=== PATIENT | male | born 1950 | race Two or more races ===

== ENCOUNTER 2020-07-07 09:14 | Emergency (ER) | payer MEDICARE, SELFPAY ==
--- NOTE | 2020-07-07 | CT_ITS ---
EXAMINATION: CT HEAD WITHOUT CONTRAST CLINICAL INFORMATION: Headache and neck pain COMPARISON: Previous head CT April 2019 TECHNIQUE: Contiguous axial imaging was performed from the skull base to vertex without intravenous administration of contrast. This CT examination was performed using dose optimization techniques as appropriate, variously including the following: *Automated exposure control *Adjustment of mA and/or kV according to patient size (this includes techniques or standardized protocols for targeted exams where dose is matched to indication/reason for exam; i.e. extremities or head) *Use of iterative reconstruction technique DLP: 703 mGy-cm FINDINGS: There is no evidence of an extra-axial collection. There is no evidence of intra-axial extra-axial hemorrhage. The ventricles and extra-axial CSF spaces are appropriate. There is nonspecific low-attenuation seen in the periventricular white matter similar to previous exam. No mass, mass effect or infarct is seen. There is severe soft tissue opacification of the bilateral maxillary sinuses suggestive of sinusitis. This is is not appreciably changed from April 2019. The remainder of the paranasal sinuses, mastoid air cells and middle ears are clear. Bony structures are unremarkable. IMPRESSION: No acute intracranial pathology findings. Mild nonspecific periventricular white matter disease.. Chronic bilateral maxillary sinus disease.
[2020-07-07 09:34] VITALS: BP 130/60; PULSE 76; RESP 16; TEMP 37.1; O2SAT 99; BMI 26.6
--- NOTE | 2020-07-07 09:57 | PC.NURSE ---
SEEN BY PROVIDER AT THIS TIME.
--- NOTE | 2020-07-07 09:57 | ED.HA ---
HPI - Headache General Chief Complaint: Headache Stated Complaint: HEADACHE Time Seen by Provider: 07/07/20 09:43 Source: patient Mode of arrival: ambulatory History of Present Illness HPI Narrative: 69-year-old male with a past medical history of asthma, hypertension, hyperlipidemia, DM, PUD, psoriatic arthritis, alcohol dependence, White's esophagus c/o posterior headache x3 days with associated neck pain. Admits to similar symptoms in the past in which he was seen in the ED. Reports dizziness /feeling off balance when he looks down and up quickly. Denies visual loss, fever, chills, nausea / vomiting, weakness, CP/SOB, head trauma / falls. Takes baby ASA daily denies other anticoagulation Related Data Previous Rx's Medication Instructions Recorded amoxicillin-pot clavulanate 1 tab PO Q12H 7 Days #14 tab 07/07/20 [Augmentin] [id number]-jtycbbqevctnu-csyw 1 cap PO Q4-6H PRN #14 cap 07/07/20 [Fioricet] meclizine 25 mg PO BID PRN #10 tab 07/07/20 Allergies Allergy/AdvReac Type Severity Reaction Status Date / Time doxycycline Allergy Unknown Unknown Verified 07/07/20 09:52 levofloxacin Allergy Unknown Unknown Verified 07/07/20 09:52 metformin Allergy Unknown diarrhea Verified 02/05/20 00:00 morphine [MORPHINE] Allergy Unknown ITCHING Verified 07/07/20 09:52 tetracycline Allergy Unknown Unknown Verified 07/07/20 09:52 Cefazolin Sodium Allergy Unknown Unknown Uncoded 07/07/20 09:52 Review of Systems Review of Systems: Yes all other systems are reviewed and are negative Constitutional: Constitutional: Reports as per HPI, Denies chills, Denies fever(s), Denies frequent falls and Denies weakness Eyes: Eyes: Reports as per HPI, Denies change in vision and Denies loss of vision ENT: Reports as per HPI and Reports dizziness Cardiovascular: Cardiovascular: Reports as per HPI, Denies chest pain and Denies dyspnea Respiratory: Respiratory: Reports as per HPI, Reports no additional respiratory complaints, Denies cough and Denies dyspnea Gastrointestinal: Gastrointestinal: Reports as per HPI, Denies abdominal pain, Denies diarrhea, Denies nausea and Denies vomiting Musculoskeletal: Musculoskeletal: Denies abnormal gait, Denies numbness and Denies tingling Neurologic: Reports as per HPI, Denies Abnormal speech present, Denies abnormal gait, Reports dizziness, Denies frequent falls, Denies focal weakness, Denies loss of vision, Denies numbness, Denies Sensory deficit (Neuro), Denies tingling and Denies weakness PMFSH Past Medical History Attestation statement: The following information was validated with the patient. Medical History Asthma HTN (hypertension) IDDM (insulin dependent diabetes mellitus) Social History Social History Alcohol intake: current Alcohol intake frequency: 3 or more drinks per day Smoked in Last 30 Days: No Use of substances other than those prescribed or required for medical reasons: No Advance Directives: No Advance Directives Information Provided: Yes Physical Exam Vital Signs and I&O and Narrative: Vital Signs and I&O: Vital Signs Temp 98.8 F 07/07/20 09:34 Pulse 67 07/07/20 11:33 Resp 16 07/07/20 09:34 BP 109/57 L 07/07/20 11:33 Pulse Ox 99 07/07/20 09:34 Intake & Output 07/06/20 07/07/20 07/07/20 18:59 06:59 18:59 Intake Total 1000 / 1000 Balance 1000 / 1000 Weight 77.111 kg Intake: Intake, IV Amoun t 1000 / 1000 0.9 % Sodium C hloride 1,000 ml 1000 / 1000 @ 999 mls/hr I VCONT .Q1H1M [facility] Rx#:[id number] Body Mass Index 26.6 Const: General: cooperative and healthy appearing Orientation/consciousness: patient oriented x3 HENMT: Head: Yes normal to inspection Ears: hearing grossly normal bilaterally Mouth: Normal oral and palatal mucosa present Eyes: General: appearance normal, both eyes and all related structures Periorbital: periorbital findings normal Eyelids: Yes eyelids normal Conjunctivae: conjunctivae normal Pupils: Equal, round and reactive pupils present EOM: EOMs intact bilaterally and No Nystagmus present Direct Ophthalmoscopy: normal light reflex and no photophobia Neck: Other: right-sided trapezius muscle tenderness. No midline spinous tenderness Neck: Yes normal visual inspection, Yes full ROM, Yes no lymphadenopathy, Yes no meningeal signs, Yes trachea midline and Yes supple Chest: Chest palpation & inspection: normal inspection of the chest Resp: Effort & Inspection: normal respiratory effort, able to speak in complete sentences and no cough Auscultation: clear to auscultation bilaterally Cardio: Jugular venous distension: no JVD Rhythm: regular rhythm Heart sounds: S1 normal heart sound present and S2 normal heart sound present GI: Inspection: Yes normal to inspection Palpation (GI): Soft to palpation, nontender and no guarding Neuro: General: patient oriented x3, no meningeal signs and CN's II-XI intact bilaterally Cranial nerves: Yes Equal, round and reactive pupils present and No Nystagmus present Speech: No Abnormal speech present Gait exam (Neuro): Normal gait present Motor exam (neuro): 5/5 motor strength present throughout Sensory Exam: No Sensory deficit (Neuro) Course Course Course Narrative: H&H at baseline, no leukocytosis. Potassium slightly high 5.2> Kayexalate ordered -1209-- head CT without acute intracranial findings --1240-- patient reports symptomatic improvement after. Sed, and Augmentin. Worrisome signs and symptoms and strict return precautions discussed. Patient verbalized understanding and feels safe for discharge Reevaluation(s) Reevaluation #1: on re-evaluation patient reports mild symptomatic improvement stool with residual headache. Reports right-sided ear pain. On exam cerumen noted with a dull TM on right side. No mastoid abnormality. Will treat for acute otitis media Time: 12:12 MDM - Headache MDM Narrative Medical decision making narrative: 69-year-old male with a past medical history of asthma, hypertension, hyperlipidemia, DM, PUD, psoriatic arthritis, alcohol dependence, White's esophagus c/o posterior headache x3 days with associated neck pain. On exam VSS, NAD/ well-appearing. No focal neuro deficits. No meningeal signs. Ambulating with steady gait. Likely migraine headache w/BPPV. Low concern for CVA/TIA, CVT, infectious etiology, meningitis/encephalitis patient requesting head CT, so we will obtain, last head CT in 2019 plan: Labs, head CT, symptomatic therapy/reassess Lab Data Result diagrams: 07/07/20 10:19 07/07/20 10:19 Labs: Lab Results 07/07/20 07/07/20 Range/Units 10:19 10:19 WBC 7.6 (4.8-10.8) X10*3/uL RBC 4.13 L (4.60-5.80) X10*6/uL Hgb 12.6 L (14.0-18.0) g/dl Hct 39.2 L (42-52) % MCV 94.9 (80-98) fL MCH 30.5 (27.0-33.0) pg MCHC 32.1 (31.0-36.0) g/dl RDW 13.9 (11.0-16.0) % Plt Count 219 (160-400) X10*3/uL MPV 9.9 (9.4-12.4) fL Immature Gran % (Auto) 0.5 H (0.0-0.4) % Neut % (Auto) 59.0 (45-73) % Lymph % (Auto) 20.7 (20-40) % Park % (Auto) 7.2 (2-11) % Eos % (Auto) 12.2 H (0-4) % Baso % (Auto) 0.4 (0-2) % Neut # (Auto) 4.5 (2.0-8.3) X10*3/uL Lymph # (Auto) 1.6 (1.2-4.9) X10*3/uL Park # (Auto) 0.6 (0.1-1.2) X10*3/uL Eos # (Auto) 0.9 H (0.0-0.4) X10*3/uL Baso # (Auto) 0.0 (0.0-0.2) X10*3/uL Abs Immat Gran (auto) 0.04 H (0.00-0.03) X10*3/uL Absolute Nucleated RBC 0.000 (0.0-0.012) X10*3/uL Nucleated RBC % (auto) 0.0 (0.0-0.2) /100WBC Sodium 139 (135-145) mmol/L Potassium 5.2 H (3.3-5.1) mmol/l Chloride 109 H (96-108) mmol/L Carbon Dioxide 21 L (22-29) mmol/L Anion Gap 14 (12-20) BUN 26 H (9-16) mg/dL Creatinine 1.20 (0.5-1.4) mg/dL Estim Creat Clear Calc 55.0 Estimated GFR > 60 Random Glucose 226 H (60-115) mg/dL Calcium 8.9 (8.4-10.2) mg/dL Discharge Plan Discharge Clinical Impression: Headache, Otitis media Patient Disposition: Home, Self-Care Instructions: Ear Infection (ED), Acute Headache (ED), Dizziness (ED) Additional Instructions: your blood work and head CT were reassuring today in the ED You have an inner ear infection Augmentin as an antibiotic, take as prescribed Meclizine will help with the dizziness /nausea Fioricet is a headache medication, take as needed ED to have close follow-up with her primary care doctor You should also follow-up with an ENT doctor If your symptoms persist /worsen, you have fever, visual changes, nausea /vomiting, or weakness return to the ED immediately Prescriptions: New amoxicillin-pot clavulanate [Augmentin] 875-125 mg tablet 1 tab PO Q12H 7 Days Qty: 14 RF: 0 ljiufhkdqp-wjxitbdkladci-jgnk [Fioricet] 50-300-40 mg capsule 1 cap PO Q4-6H PRN (Reason: headache) Qty: 14 RF: 0 meclizine 25 mg tablet 25 mg PO BID PRN (Reason: dizziness) Qty: 10 RF: 0 Referrals: Uziel Aggarwal [Physician] - 2 days Sheba Greco MD [Primary Care Provider] - 2 days
[2020-07-07] MEDS: Acetaminophen 325 MG TABLET 650 MG PO (10:21)
[2020-07-07] MEDS: Metoclopramide HCl 10 MG/2 ML VIAL IVPUSH (10:21)
[2020-07-07] MEDS: 0.9 % Sodium Chloride 1,000 ML 999 ML IVCONT (10:21)
[2020-07-07] MEDS: Meclizine HCl 25 MG TABLET PO (10:22)
--- NOTE | 2020-07-07 10:22 | PC.NURSE ---
IV EST 20 G R AC. BLOOD TO LAB. MEDICTED PER ORDERS
[2020-07-07 10:30] LABS: MANUAL DIFF FLAG NO
[2020-07-07 10:37] LABS: Basophils Percent Auto 0.4 % (0-2); Eosinophils Absolute Auto 0.9 X10*3/uL (0.0-0.4); Eosinophils Percent Auto 12.2 % (0-4); Hematocrit 39.2 % (42-52); Hemoglobin 12.6 g/dl (14.0-18.0); Imm Gran Abs Auto 0.04 X10*3/uL (0.00-0.03); Imm Gran Pct Auto 0.5 % (0.0-0.4); Lymphocytes Absolute Auto 1.6 X10*3/uL (1.2-4.9); Lymphocytes Percent Auto 20.7 % (20-40); Mean Corpuscular HGB Conc 32.1 g/dl (31.0-36.0); Mean Corpuscular Hemoglobin 30.5 pg (27.0-33.0); Mean Corpuscular Volume 94.9 fL (80-98); Mean Platelet Volume 9.9 fL (9.4-12.4); Monocytes Absolute Auto 0.6 X10*3/uL (0.1-1.2); Monocytes Percent Auto 7.2 % (2-11); Neutrophils Absolute Auto 4.5 X10*3/uL (2.0-8.3); Platelet Count 219 X10*3/uL (160-400); Red Blood Count 4.13 X10*6/uL (4.60-5.80); Red Cell Distribution Width 13.9 % (11.0-16.0); White Blood Count 7.6 X10*3/uL (4.8-10.8)
[2020-07-07 10:57] LABS: Anion Gap 14 (12-20); Blood Urea Nitrogen 26 mg/dL (9-16); Calcium 8.9 mg/dL (8.4-10.2); Carbon Dioxide 21 mmol/L (22-29); Chloride 109 mmol/L (96-108); Estimated Glomerular Filt Rate > 60; Glucose Random 226 mg/dL (60-115); Potassium 5.2 mmol/l (3.3-5.1); Sodium 139 mmol/L (135-145)
[2020-07-07 11:33] VITALS: BP 109/57; PULSE 67
[2020-07-07] MEDS: Amoxicillin/Potassium Clav 875 MG TABLET PO (12:23)
[2020-07-07] MEDS: Sodium Polystyrene Sulfon/Sorb 15 GM/60 ML ORAL.SUSP PO (12:23)
== END 2020-07-07 13:10 | disposition home or self-care (01) ==
PROVIDERS: Physician Assistant; Emergency Provider Emergency Medicine; PCP Internal Medicine
DX: H66.90 Otitis media, unspecified, unspecified ear (principal); J45.909 Unspecified asthma, uncomplicated; I10 Essential (primary) hypertension; E11.9 Type 2 diabetes mellitus without complications; Z79.899 Other long term (current) drug therapy
CPT/HCPCS: 36415; 70450; 80048; 85025; 96361; 96374; 99284; J2765

== ENCOUNTER 2020-07-14 10:50 | Emergency (ER) | payer MEDICARE, SELFPAY ==
[2020-07-14 10:54] VITALS: BP 112/64; PULSE 94; RESP 16; TEMP 37; O2SAT 99; BMI 25.8
--- NOTE | 2020-07-14 11:50 | ED_ITS ---
HPI - Skin/Abscess/Foreign Bdy General Chief complaint: Skin/Abscess/Foreign Body Stated complaint: rash Time Seen by Provider: 07/14/20 11:50 Source: patient Mode of arrival: ambulatory Limitations: language barrier History of Present Illness HPI narrative: 69 yo male here with worsening psoriasis of his hands, face, chest. He was seen by Photo Lab Technician on 07/03 - prescribed topical betamethasone emollient and told he needs to get phototherapy. He has been trying to call but has not gotten and answer or a call back. He presents today hoping we can call the phototherapy center to facilitate an appointment. MD complaint: rash Onset (ago): day(s) Tetanus up to date: yes Location: face, chest, L hand and R hand Severity: severe Severity scale (1-10): 8 Quality: burning and aching Pain Consistency: constant Relieving factors: none Exacerbating factors: palpation and movement Associated symptoms: denies other symptoms Treatments prior to arrival: none Related Data Previous Rx's Medication Instructions Recorded amoxicillin-pot clavulanate 1 tab PO Q12H 7 Days #14 tab 07/07/20 [Augmentin] tuasjnfndd-qajrcujnnjblq-tmtk 1 cap PO Q4-6H PRN #14 cap 07/07/20 [Fioricet] meclizine 25 mg PO BID PRN #10 tab 07/07/20 Allergies Allergy/AdvReac Type Severity Reaction Status Date / Time doxycycline Allergy Unknown Unknown Verified 07/07/20 09:52 levofloxacin Allergy Unknown Unknown Verified 07/07/20 09:52 metformin Allergy Unknown diarrhea Verified 02/05/20 00:00 morphine [MORPHINE] Allergy Unknown ITCHING Verified 07/07/20 09:52 tetracycline Allergy Unknown Unknown Verified 07/07/20 09:52 Cefazolin Sodium Allergy Unknown Unknown Uncoded 07/07/20 09:52 [facility] Past Medical History Medical History Asthma HTN (hypertension) IDDM (insulin dependent diabetes mellitus) Social History Social History Alcohol intake: current Alcohol intake frequency: 3 or more drinks per day Advance Directives: No Advance Directives Information Provided: Yes Physical Exam Vital Signs: Vital Signs: Vital Signs Temp Pulse Resp BP Pulse Ox 07/14/20 10:54 98.6 F 94 16 112/64 99 Body Mass Index 25.8 Discharge Plan Discharge Prescriptions: No Action amoxicillin-pot clavulanate [Augmentin] 875-125 mg tablet 1 tab PO Q12H 7 Days Qty: 14 RF: 0 oxpssuihfy-mdbzhbgcodvxl-nsqe [Fioricet] 50-300-40 mg capsule 1 cap PO Q4-6H PRN (Reason: headache) Qty: 14 RF: 0 meclizine 25 mg tablet 25 mg PO BID PRN (Reason: dizziness) Qty: 10 RF: 0
== END 2020-07-14 12:10 | disposition home or self-care (01) ==
PROVIDERS: Emergency Provider Emergency Medicine; PCP Internal Medicine
DX: L40.9 Psoriasis, unspecified (principal); I10 Essential (primary) hypertension; E11.9 Type 2 diabetes mellitus without complications; Z79.4 Long term (current) use of insulin
CPT/HCPCS: 99283

== ENCOUNTER 2020-09-07 09:47 | Outpatient (REF) | payer MEDICARE, SELFPAY ==
[2020-09-07 10:32] LABS: MANUAL DIFF FLAG NO
[2020-09-07 10:38] LABS: Basophils Absolute Auto 0.1 X10*3/uL (0.0-0.2); Basophils Percent Auto 0.4 % (0-2); Eosinophils Absolute Auto 0.9 X10*3/uL (0.0-0.4); Eosinophils Percent Auto 7.6 % (0-4); Hematocrit 41.8 % (42-52); Hemoglobin 13.6 g/dl (14.0-18.0); Imm Gran Abs Auto 0.14 X10*3/uL (0.00-0.03); Imm Gran Pct Auto 1.1 % (0.0-0.4); Lymphocytes Absolute Auto 1.7 X10*3/uL (1.2-4.9); Lymphocytes Percent Auto 14.1 % (20-40); Mean Corpuscular HGB Conc 32.5 g/dl (31.0-36.0); Mean Corpuscular Hemoglobin 30.6 pg (27.0-33.0); Mean Corpuscular Volume 93.9 fL (80-98); Mean Platelet Volume 10.3 fL (9.4-12.4); Monocytes Absolute Auto 0.9 X10*3/uL (0.1-1.2); Neutrophils Absolute Auto 8.6 X10*3/uL (2.0-8.3); Neutrophils Percent Auto 69.8 % (45-73); Platelet Count 248 X10*3/uL (160-400); Red Blood Count 4.45 X10*6/uL (4.60-5.80); Red Cell Distribution Width 13.6 % (11.0-16.0); White Blood Count 12.4 X10*3/uL (4.8-10.8)
[2020-09-07 11:00] LABS: Albumin Level 4.4 g/dL (3.5-5.0); Anion Gap 14 (12-20); Blood Urea Nitrogen 23 mg/dL (9-16); Calcium 9.6 mg/dL (8.4-10.2); Carbon Dioxide 26 mmol/L (22-29); Chloride 102 mmol/L (96-108); Estimated Glomerular Filt Rate 50; Potassium 5.1 mmol/l (3.3-5.1); Sodium 137 mmol/L (135-145)
== END 2020-09-07 09:48 | disposition home or self-care (01) ==
LOC: HO.10HDL 09:47
PROVIDERS: Visit Provider Internal Medicine Hypertension Specialist
DX: E11.22 Type 2 diabetes mellitus with diabetic chronic kidney disease (principal); I12.9 Hypertensive chronic kidney disease with stage 1 through stage 4 chronic kidney disease, or unspecified chronic kidney disease; N18.30 Chronic kidney disease, stage 3 unspecified; E78.5 Hyperlipidemia, unspecified
CPT/HCPCS: 36415; 80051; 82040; 82310; 82565; 83735; 84100; 84520; 85025

== ENCOUNTER 2020-09-11 10:21 | Outpatient (REF) | payer MEDICARE, SELFPAY | END 2020-09-11 10:22 | disposition home or self-care (01) | LOC: HO.LAB 10:21 | PROVIDERS: Visit Provider Internal Medicine | DX: Z20.828 Contact with and (suspected) exposure to other viral communicable diseases (principal) | CPT/HCPCS: C9803; U0003 ==

== ENCOUNTER 2020-09-21 11:30 | Outpatient (REF) | payer MEDICARE, SELFPAY | END 2020-09-21 11:31 | disposition home or self-care (01) | LOC: HO.LAB 11:30 | PROVIDERS: Visit Provider Internal Medicine | DX: Z20.828 Contact with and (suspected) exposure to other viral communicable diseases (principal) | CPT/HCPCS: C9803; U0003 ==

== ENCOUNTER 2020-11-10 07:17 | Outpatient (REF) | payer MEDICARE, SELFPAY ==
[2020-11-10 07:47] LABS: MANUAL DIFF FLAG NO
[2020-11-10 07:58] LABS: Basophils Absolute Auto 0.1 X10*3/uL (0.0-0.2); Basophils Percent Auto 0.5 % (0-2); Hematocrit 45.7 % (42-52); Hemoglobin 14.6 g/dl (14.0-18.0); Imm Gran Abs Auto 0.05 X10*3/uL (0.00-0.03); Imm Gran Pct Auto 0.5 % (0.0-0.4); Lymphocytes Absolute Auto 2.4 X10*3/uL (1.2-4.9); Lymphocytes Percent Auto 25.2 % (20-40); Mean Corpuscular HGB Conc 31.9 g/dl (31.0-36.0); Mean Corpuscular Hemoglobin 29.9 pg (27.0-33.0); Mean Corpuscular Volume 93.6 fL (80-98); Mean Platelet Volume 9.9 fL (9.4-12.4); Monocytes Absolute Auto 0.8 X10*3/uL (0.1-1.2); Monocytes Percent Auto 8.6 % (2-11); Neutrophils Absolute Auto 5.1 X10*3/uL (2.0-8.3); Neutrophils Percent Auto 54.2 % (45-73); Platelet Count 236 X10*3/uL (160-400); Red Blood Count 4.88 X10*6/uL (4.60-5.80); Red Cell Distribution Width 13.2 % (11.0-16.0); White Blood Count 9.5 X10*3/uL (4.8-10.8)
[2020-11-10 08:05] LABS: Estimated Average Glucose 186 mg/dL; Hemoglobin A1c % 8.1 %
[2020-11-10 08:21] LABS: Alanine Aminotransferase 30 U/L (0-40); Albumin Level 4.4 g/dL (3.5-5.0); Alkaline Phosphatase 51 U/L (39-117); Anion Gap 12 (12-20); Aspartate Amino Transferase 21 U/L (5-37); Bilirubin Total 0.4 mg/dL (0.0-1.0); Blood Urea Nitrogen 24 mg/dL (9-16); Calcium 9.4 mg/dL (8.4-10.2); Carbon Dioxide 26 mmol/L (22-29); Chloride 107 mmol/L (96-108); Cholesterol 180 mg/dL; Estimated Glomerular Filt Rate 54; Glucose Fasting 129 mg/dL (60-99); HDL Cholesterol 43 mg/dL; Iron 95 mcg/dL (45-160); LDL Cholesterol Calculated 109 mg/dl; Percent Iron Saturation 30 % (15-50); Sodium 140 mmol/L (135-145); Total Iron Binding Capacity 314 mcg/dL (228-428); Total Protein 7.5 g/dL (6.5-8.0); Triglycerides 140 mg/dL; Unsaturated Iron Binding 219 ug/dL
[2020-11-10 09:14] LABS: Creatinine Urine 111.44 mg/dL; Microalbum/Creatinine Ratio Ur 55.6 ug/mg cr
== END 2020-11-10 07:18 | disposition home or self-care (01) ==
LOC: HO.LAB 07:17
PROVIDERS: Absent Provider Internal Medicine Hypertension Specialist; PCP Internal Medicine; Visit Provider Internal Medicine
DX: E11.65 Type 2 diabetes mellitus with hyperglycemia (principal); E11.22 Type 2 diabetes mellitus with diabetic chronic kidney disease; N18.32 Chronic kidney disease, stage 3b; D64.9 Anemia, unspecified; E78.5 Hyperlipidemia, unspecified
CPT/HCPCS: 36415; 80053; 80061; 82043; 83036; 83540; 85025

== ENCOUNTER 2020-12-18 09:38 | Outpatient (REF) | payer MEDICARE, SELFPAY ==
--- NOTE | 2020-12-18 13:10 | MHC.AU.ANR ---
Adult Audiological Evaluation Date of Visit: 12/18/20 Machine Oiler Used: Declined by Patient Reason for Appointment: Audiological evaluation due to concern for decreased hearing in the right ear. Patient states that for ~3 months his right ear had felt blocked. He was also experiencing pain in the right ear which has since subsided. He reports a history of sinus congestion. He notes that he has been seen by an ENT physician ~ 5 years ago for a similar problem. Does patient feel they have a hearing loss?: Yes If Yes, Which Ear?: Right Ear When Was Hearing Difficulty First Noticed?: ~3 months ago Has hearing been tested previously?: Yes Previous Hearing Test Results: Patient reports he had his hearing tested ~5 years ago. Results not available to be reviewed today. 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 Medical History: Medical History: Blood Disorders, Diabetes, Headache, Heart Problems, High Blood Pressure, Tobacco Use, Vascular Problems Medical History (Other): Asthma, psoriasis Allergies: Morphine Otoscopy: Right Ear: Partially occluded with cerumen Left Ear: Partially occluded with cerumen Tympanometry: Tympanometry performed due to: History of middle ear dysfunction Right Ear: Non-compliant Middle Ear System (Type B) Left Ear: Could Not Obtain Seal Hearing Evaluation: Transducer(s) Used: Insert Earphones, Bone Conduction Method: Conventional Audiometry Stimuli Used: Pure Tones Right Ear: Description of Hearing: Normal hearing from 250-2000 Hz, sloping to a moderate to moderately severe sensorineural hearing loss from 7181-1665 Hz. Thresholds from 8616-8555 Hz are 15-20 dBHL worse than those in the left ear. Left Ear: Description of Hearing: Normal hearing from 250-2000 Hz, sloping to a mild to moderate sensorineural hearing loss from 8058-3884 Hz. Speech Recognition Threshold (SRT): Method Used: Monitored Live Voice Stimuli Used: Spondee Words Right Ear: 10 dBHL Left Ear: 10 dBHL Word Discrimination: Method: Recorded Lists Word Lists Used: Lista Bisil?bica (Swiss) Right Ear: 88% at 50 dBHL Left Ear: 92% at 50 dBHL Recommendations: Audiological re-evaluation in one year. Referral to Ear, Nose, and Throat is recommended. Recommend referral to ENT to address asymmetric thresholds, Type B tympanometry, and cerumen build-up. Diagnosis: Primary Diagnosis: H90.3 Bilateral Sensorineural Hearing Loss Secondary Diagnosis: H61.23 Impacted Cerumen, Bilateral Services Performed: Services Performed: Comprehensive Audiological Evaluation (CPT 43260) Tympanometry (CPT 50059) Signature: Provider: Nabil Allen, CCC-A
== END 2020-12-18 09:39 | disposition home or self-care (01) ==
LOC: HO.SH 09:38
PROVIDERS: Visit Provider Nurse Practitioner Family
DX: H90.3 Sensorineural hearing loss, bilateral (principal); H61.23 Impacted cerumen, bilateral
CPT/HCPCS: 92557; 92567

== ENCOUNTER → 2020-12-28 13:49 | Outpatient (REF) | payer MEDICARE, SELFPAY ==
--- NOTE | 2020-12-28 14:00 | CA_ITS ---
Transthoracic Echocardiogram Patient (Last, First, Middle): Jonathon Harper, Gender: Male Date of : 1950 Age: 70 Procedure Date: 12/28/2020 Procedure Type: Transthoracic Echocardiogram Location: OP Height: 170.18 cm Weight: 80.74 kg BSA: 1.92 m2 Heart Rate: bpm BP: 126 / 56 mmHg Hearing And Speech Assistant: DSMarilynn Referring MD: Ted Josue MD Symptoms: I35.0 NONRHEUMATIC , I10 HTN Study Quality: Fair ECG Rhythm: Sinus Conclusions: - The left ventricular systolic function is normal. The visually estimated ejection fraction is between 60-65%. - There is moderate calcification of the aortic valve. There is mild aortic valve stenosis. Findings Left Ventricle Normal left ventricular cavity size. There is normal left ventricular wall thickness. The left ventricular systolic function is normal. The visually estimated ejection fraction is between 60-65%. There is no evidence of regional wall motion abnormalities. Diastolic function is normal for age. Right Ventricle Normal right ventricular cavity size and systolic function. Atria The left atrium is normal in size. The right atrium is normal in size. Aortic Valve There is moderate calcification of the aortic valve. There is mild aortic valve stenosis. The peak aortic velocity is 2.45 m/s with a calculated peak gradient of 24 mmHg. The mean gradient is 13 mmHg. The aortic valve area is 1.50 cm2. There is no aortic valve regurgitation. Mitral Valve The mitral valve appears normal. There is no mitral valve regurgitation. There is no mitral valve stenosis. Pulmonic Valve The pulmonic valve was not well visualized. Tricuspid Valve Normal tricuspid valve structure. There is mild tricuspid valve regurgitation. The pulmonary artery systolic pressure is normal. Great Vessels The aortic annulus, sinuses of valsalva, and asc aorta are normal in size. Venous The inferior vena cava is normal in size and collapses greater than 50% with inspiration. Pericardium/Pleural There is no evidence of pericardial effusion. Prior Study Comparison No significant change compared to prior study dated: 06/28/2019. Measurements 2D Linear Measurements IVSd: 0.93 0.6-0.9/0.6-1.0 cm LVIDd: 4.24 3.9-5.3/4.2-5.9 cm LVIDs: 2.31 2.0-3.6 cm LVPWd: 1.00 0.7-1.1 cm LV Mass: 165.70 67-162/88-224 g LVOT Diam: 2.00 3.0+(-)1.3 cm 2D Systolic Function EF 4C: 68.00 >55% EF 2C: 62.00 >55% Mitral Valve MV Pk E: 0.09 MV PK A: 0.59 MV Decel Time: 175.82 E/A: 1.42 E'Lateral: 0.11 E'Medial: 0.07 Decel Johnston: 4.76 Aortic Valve AoV Pk Erasto: 2.45 AoV Mn Erasto: 1.64 AoV VTI: 0.46 AoV Pk Grad: 24.07 Aov Mn Grad: 12.51 TUNDE Cont.VTI: 1.50 LVOT LVOT Pk Erasto: 1.17 LVOT Mn Erasto: 0.73 LVOT VTI: 0.22 LVOT Pk Grad: 5.46 LVOT Mn Grad: 2.55 LVOT Diam: 2.00 LVOT Area: 3.14 Diastolic Function MV Pk E: 0.09 MV Pk A: 0.59 E/A: 1.42 E'Medial: 0.07 E' Laterial: 0.11 Tricuspid Valve TR Pk Erasto: 2.56 TR Pk Grad: 26.19 RA Press: 3.00 RVSP: 29.00 Great Vessels Aorta Ao Asc: 3.41 2.1-3.4 cm Updated in Other Vendor System with Status of Final Ted Josue MD electronically signed on 12/28/2020 4:35:14 PM with status of Final
== END ==
LOC: HO.CARD 13:49
PROVIDERS: Visit Provider Internal Medicine
DX: I35.0 Nonrheumatic aortic (valve) stenosis (principal); I10 Essential (primary) hypertension
CPT/HCPCS: 93306

== ENCOUNTER → 2021-01-04 10:03 | Outpatient (BNVA) | payer MEDICARE, SELFPAY | PROVIDERS: PCP Internal Medicine; Visit Provider Internal Medicine | DX: I35.0 Nonrheumatic aortic (valve) stenosis (principal); I10 Essential (primary) hypertension; R07.2 Precordial pain; E11.8 Type 2 diabetes mellitus with unspecified complications | CPT/HCPCS: 93005; 99212 ==

== ENCOUNTER → 2021-01-12 08:09 | Outpatient (REF) | payer MEDICARE, SELFPAY ==
--- NOTE | ~2021-01-12 | NM_ITS ---
EXERCISE MYOCARDIAL PERFUSION STUDY INDICATION: Chest pain TECHNIQUE: The patient was brought in for an exercise perfusion study on 01/12/2021. Patient performed exercise as per Pieter protocol and was injected 25 mCi of sestamibi once target heart rate was achieved. Images were obtained using the SPECT gamma camera interlaced with the gating device. Images were obtained in supine position. Resting perfusion study was performed on 01/13/2021. Patient was administered 25 mCi of sestamibi intravenously at rest. Images were then obtained in supine position. Total DLP 55mGy-cm. Images were processed with the software and compared side to side in short axis, horizontal long axis and vertical long axis views. FINDINGS: Raw images were reviewed. The stress perfusion study showed diminished tracer uptake along the basal to mid inferior wall. With CT attenuation correction, this improves significantly suggesting diaphragmatic attenuation artifact. The gated study shows normal LV systolic function with calculated LVEF of 63%. LV cavity is normal in size. The gated study shows normal wall thickening and contraction of segments. Resting study shows no significant perfusion abnormality. Gating at rest reveals normal wall motion with ejection fraction at 62%. The findings are consistent with apparent reversible inferior defect, suspected to be from diaphragmatic artifact. NM/NM cardiolite stress test IMPRESSION: 1. Myocardial perfusion imaging study shows no definite evidence of any ischemia or infarction. Likely normal perfusion. 2. Gated LVEF is 63% during stress and 62% during rest. 3. Transient ischemic dilatation not present. EKG component of the test reported separately.
--- NOTE | 2021-01-12 08:30 | CA_ITS ---
Acquisition Time: 2021-01-12 08:28:40 Total Exercise Time: 00:07:46 Test Indications: Chest Pain Medications: Protocol: FAY Max HR: 125 BPM 82% of Pred: 151 BPM Max BP: 202/052 mmHG Max Work Load: 9.7 METS Exercise stress nuclear using Fay protocol. Total of 7 min 46 sec. METS 9.70, TAPHR up to 82 %. Pt denies any anginal sx. C/o H/A at peak exercise , hypertensive response to to exercise. EKG without any arrhythmias, no ishemic changes seen during exercise or in recovery. Nuclear images to follow. Test reviewed with Dr. Josue Referred By: Ted Josue Overread By: Michelle oChen NP
== END ==
LOC: HO.CARD 08:09
PROVIDERS: Visit Provider Internal Medicine
DX: R07.2 Precordial pain (principal)
CPT/HCPCS: 78452; 93016; 93017; 93018

== ENCOUNTER 2021-01-21 14:33 | Outpatient (REF) | payer MEDICARE, SELFPAY ==
--- NOTE | ~2021-01-21 | US_ITS ---
EXAMINATION: US RETROPERITONEAL LIMITED (RENAL ONLY) CLINICAL INFORMATION: Chronic kidney disease. COMPARISON: CT abdomen and pelvis with contrast dated 03/19/2019. Renals only ultrasound dated 10/04/2016. TECHNIQUE: Real-time imaging of the kidneys. FINDINGS: RIGHT KIDNEY: 10.2 x 5.2 x 5.9 cm (SAG x AP x TRV). The kidney is normal in size, contour, and echogenicity. Renal cortical thickness is normal. No calculi or focal parenchymal lesions. No hydronephrosis. LEFT KIDNEY: 11.7 x 6.3 x 4.4 cm (SAG x AP x TRV). The kidney is normal in size, contour, and echogenicity. Renal cortical thickness is normal. No renal calculi or hydronephrosis. A 1.5 cm simple cyst is present within the interpolar region medially. A 1.4 cm minimally complex cyst within the lower pole laterally has a punctate calcification is primarily anechoic. No soft tissue foci. No internal blood flow. US/US renal BI IMPRESSION: Normal-sized kidneys without significant parenchymal atrophy. No evidence of obstructive uropathy. Two left renal cysts which do not warrant further follow-up.
== END 2021-01-21 14:34 | disposition home or self-care (01) ==
LOC: HO.US 14:33
PROVIDERS: PCP Internal Medicine; Visit Provider Internal Medicine Hypertension Specialist
DX: R07.2 Precordial pain (principal); I12.9 Hypertensive chronic kidney disease with stage 1 through stage 4 chronic kidney disease, or unspecified chronic kidney disease; E11.22 Type 2 diabetes mellitus with diabetic chronic kidney disease; N18.31 Chronic kidney disease, stage 3a; I35.0 Nonrheumatic aortic (valve) stenosis
CPT/HCPCS: 76775; 99212

== ENCOUNTER 2021-03-02 09:55 | Emergency (ER) | payer MEDICARE, SELFPAY ==
--- NOTE | ~2021-03-02 | XR_ITS ---
EXAMINATION: XR SHOULDER, LEFT CLINICAL INFORMATION: Pain COMPARISON: None TECHNIQUE: Left shoulder is imaged in 3 views. FINDINGS: There is no fracture or dislocation or destructive process. Borderline spur is present at greater tuberosity. The acromioclavicular alignment is normal. There are no visible rotator cuff calcifications. The glenohumeral joint and acromioclavicular joint appear normal. XR/XR shoulder LT min 2V IMPRESSION: 1. Small spur greater tuberosity. 2. No visible rotator cuff calcifications. 3. No arthropathy.
[2021-03-02 09:58] VITALS: BP 120/57; PULSE 77; RESP 18; TEMP 36.4; O2SAT 97; BMI 28.1
--- NOTE | 2021-03-02 11:18 | ED.GENADULT ---
HPI - General Adult General Chief complaint: Skin/Abscess/Foreign Body Stated complaint: fell, infection on arm Time Seen by Provider: 03/02/21 11:18 History of Present Illness HPI narrative: Patient complains of left forearm rash, redness and itching and some discomfort over last several weeks, he does recall of injury from an elevator door hitting into his arm some weeks ago that left a small abrasion He also complains of left shoulder pain with movement since the injury when the elevator door hit him in the shoulder Related Data Home Medications Medication Instructions Recorded Confirmed alclometasone 0.05 % topical cream 3 appl TOPICAL Q OTHER DAY PRN 09/07/20 03/11/21 amlodipine 2.5 mg tablet 2.5 mg PO DAILY 09/07/20 03/11/21 fluticasone 500 mcg-salmeterol 50 ea INHALATION 09/07/20 03/11/21 mcg/dose blistr powdr for inhalation montelukast 10 mg tablet 10 mg PO DAILY 09/07/20 03/11/21 mupirocin 2 % topical ointment TOPICAL 09/07/20 03/11/21 sodium polystyrene sulfonate PO 09/07/20 03/11/21 ipratropium 20 mcg-albuterol 100 1 puff INHALATION Q6H 01/01/21 03/11/21 mcg/actuation mist for inhalation Previous Rx's Medication Instructions Recorded krjruairqi-[id number]-[id number] 1 cap PO Q4-6H PRN #14 cap 07/07/20 [Fioricet] meclizine 25 mg PO BID PRN #10 tab 07/07/20 triamcinolone acetonide 0.1 % 1 applic TOPICAL BID #80 g 08/22/20 topical ointment omeprazole 20 mg capsule,delayed 20 mg PO BID #180 cap 09/18/20 release pravastatin 20 mg tablet 20 mg PO DAILY 90 Days #90 tab 10/03/20 onetouch glucometer #1 ea 10/09/20 gabapentin 300 mg capsule 300 mg PO DAILY 90 Days #90 cap 10/15/20 cyanocobalamin (vitamin B-12) 1,000 mcg PO DAILY #90 tab 11/24/20 aspirin 81 mg tablet,delayed 81 mg PO DAILY #90 tab 11/25/20 release linagliptin 5 mg tablet 5 mg PO DAILY #30 tab 12/14/20 insulin glargine 100 unit/mL (3 25 unit SUBCUT QPM 90 Days #22.5 ml 12/15/20 mL) subcutaneous pen lancets 33 gauge #100 ea 12/15/20 pen needle, diabetic 31 gauge x #1200 ea 12/23/2002/14 tamsulosin 0.4 mg capsule 0.4 mg PO DAILY #90 cap 01/24/21 blood sugar diagnostic #100 ea 02/11/21 ipratropium 0.5 mg-albuterol 3 mg 3 ml INHALATION Q6H PRN #90 ml 02/11/21 (2.5 mg base)/3 mL nebulization soln cephalexin 500 mg PO QID 7 Days #28 tab 03/02/21 hydrocortisone 1 appl TOPICAL BID PRN 7 Days 03/02/21 #28.35 g diabetic shoes #1 ea 03/11/21 Allergies Allergy/AdvReac Type Severity Reaction Status Date / Time doxycycline Allergy Intermediate Itching Verified 03/11/21 10:52 levofloxacin Allergy Intermediate Itching Verified 03/11/21 10:52 metformin Allergy Intermediate diarrhea Verified 03/11/21 10:52 morphine [MORPHINE] Allergy Intermediate ITCHING Verified 03/11/21 10:52 tetracycline Allergy Intermediate Itching Verified 03/11/21 10:52 Cefazolin Sodium Allergy Intermediate Itching Uncoded 03/11/21 10:52 Review of Systems Review of Systems: Positive for left forearm rash and left shoulder pain Negatives are no fever no chills no dizziness no weakness no neck pain no numbness weakness or tingling no chest pain no shortness of breath no abdominal pain no nausea vomiting Yes all other systems are reviewed and are negative PMFSH Past Medical History Source: nursing notes reviewed Medical History (Updated 03/11/21 @ 12:24 by Sheba Corbett MD) Asthma Diabetes Essential hypertension GERD (gastroesophageal reflux disease) High cholesterol HTN (hypertension) Hypertension IDDM (insulin dependent diabetes mellitus) Left shoulder pain Loss of hearing Non-rheumatic aortic stenosis Normocytic anemia Otitis Type 2 diabetes mellitus with unspecified complications Surgical History No pertinent past surgical history Family History Family History Father No problems noted. Mother No problems noted. Family/Other FH: mental illness Brother In good health Sister In good health Son In good health Daughter In good health Social History Social History (Updated 03/11/21 @ 12:22 by Sheba Corbett MD) Housing: Apartment Alcohol intake: current Alcohol intake frequency: a few times a week Alcohol type: hard liquor Patient Tobacco Use Status: Current everyday Tobacco user Tobacco use type: Cigarette Cigarettes Per Day: 5 Smoked in Last 30 Days: Yes e-Cigarette/Vaping Use: Never Used Second Hand Smoke Exposure: No service: No Current occupational status: disabled Physical Exam Vital Signs: Vital Signs: Last Vital Signs Temp 97.6 F 03/02/21 09:58 Pulse 77 03/02/21 09:58 Resp 18 03/02/21 09:58 BP 120/57 L 03/02/21 09:58 Pulse Ox 97 03/02/21 09:58 Body Mass Index 28.1 General appearance no acute distress Head is normocephalic atraumatic Neck is supple Respiratory no distress Abdomen soft nontender Extremities there is some tenderness to the left shoulder anterior aspect and there is pain with range of motion, there is no swelling no redness and neurovascular intact distal Left forearm exam shows of the red warm tender rash, there is no discharge no fluctuance and neurovascular intact distal Other extremities normal Neuro no focal motor or sensory deficit Course Course Course Narrative: Left shoulder x-ray was negative and patient is advised to follow with orthopedist for further evaluation The left forearm rash was treated for cellulitis with antibiotic and patient is discharged to follow with primary doctor Discharge Plan Discharge Clinical Impression: Cellulitis, Left shoulder strain Patient Disposition: Home, Self-Care Additional Instructions: We believe you have an infection of the left forearm skin so are treating with Keflex antibiotic As there was also an itchy rash we are treating with Claritin which should help with the itch Follow with primary doctor in 2-3 days for recheck Return to the ER any time for spreading redness, worse pain and swelling, any worse condition or any concerns For left shoulder pain x-ray did not show any significant injury so follow with orthopedist for further evaluation Prescriptions: New cephalexin 500 mg tablet 500 mg PO QID 7 Days Qty: 28 RF: 0 hydrocortisone 1 % cream 1 appl topical BID PRN (Reason: itching) 7 Days Qty: 28.35 RF: 0 No Action triamcinolone acetonide 0.1 % ointment 1 applic topical BID Qty: 80 RF: 2 omeprazole 20 mg capsule,delayed release(DR/EC) 20 mg PO BID Qty: 180 RF: 1 pravastatin 20 mg tablet 20 mg PO DAILY 90 Days Qty: 90 RF: 3 (DME) onetouch glucometer See Rx Instructions .Route .MEDSUPPLY Qty: 1 RF: 0 gabapentin 300 mg capsule 300 mg PO DAILY 90 Days Qty: 90 RF: 3 aspirin 81 mg tablet,delayed release (DR/EC) 81 mg PO DAILY Qty: 90 RF: 3 linagliptin [Tradjenta] 5 mg tablet 5 mg PO DAILY Qty: 30 RF: 6 Lantus Solostar U-100 Insulin 100 unit/mL (3 mL) insulin pen 25 unit subcut QPM 90 Days Qty: 22.5 RF: 6 (DME) lancets [[employer] Lancets] 33 gauge misc See Rx Instructions .ROUTE .MEDSUPPLY Qty: 100 RF: 11 (DME) pen needle, diabetic [BD Ultra-Fine Short Pen Needle] 31 gauge x 5/16 needle See Rx Instructions .ROUTE .MEDSUPPLY Qty: 1200 RF: 0 Combivent Respimat 20-100 mcg/actuation mist 1 puff inhalation Q6H RF: 0 tamsulosin 0.4 mg capsule 0.4 mg PO DAILY Qty: 90 RF: 1 [id number]-[id number]-hakm [Fioricet] 50-300-40 mg capsule 1 cap PO Q4-6H PRN (Reason: headache) Qty: 14 RF: 0 meclizine 25 mg tablet 25 mg PO BID PRN (Reason: dizziness) Qty: 10 RF: 0 cyanocobalamin (vitamin B-12) 1,000 mcg tablet 1,000 mcg PO DAILY Qty: 90 RF: 3 (DME) OneTouch Verio test strips Strip See Rx Instructions .ROUTE .MEDSUPPLY Qty: 100 RF: 0 ipratropium-albuterol 0.5 mg-3 mg(2.5 mg base)/3 mL solution for nebulization 3 ml inhalation Q6H PRN (Reason: shortness of breath or wheezing) Qty: 90 RF: 11 amlodipine 2.5 mg tablet 2.5 mg PO DAILY RF: 0 fluticasone propion-salmeterol 500-50 mcg/dose blister with device inhalation RF: 0 mupirocin 2 % ointment topical RF: 0 alclometasone 0.05 % cream 3 appl topical Q OTHER DAY PRNRF: 0 sodium polystyrene sulfonate Powder PO RF: 0 montelukast 10 mg tablet 10 mg PO DAILY RF: 0 (DME) diabetic shoes 9 See Rx Instructions .Route .MEDSUPPLY Qty: 1 RF: 0 Referrals: Wong Strange MD [Physician] - 2 days (Left shoulder pain) Interventions: ED Discharge Assessment Last Done: 03/02/21 12:00 Discharge Date/Time: 03/02/21 12:00
== END 2021-03-02 12:00 | disposition home or self-care (01) ==
PROVIDERS: Emergency Provider Emergency Medicine; PCP Internal Medicine
DX: R21 Rash and other nonspecific skin eruption (principal); I10 Essential (primary) hypertension; E11.9 Type 2 diabetes mellitus without complications; F17.210 Nicotine dependence, cigarettes, uncomplicated; Z79.4 Long term (current) use of insulin; Z79.899 Other long term (current) drug therapy; Z71.6 Tobacco abuse counseling
CPT/HCPCS: 73030; 99283

== ENCOUNTER 2021-05-04 09:49 | Inpatient (IN) | payer MEDICARE, SELFPAY ==
[2021-05-04] VITALS (7 sets, daily range): BP systolic 107–177; BP diastolic 49–93; PULSE 74–94; RESP 16–19; TEMP 36.1–37; O2SAT 96–100; BMI 27.3; BMI 27.1
--- NOTE | 2021-05-04 | ECG_ITS ---
Test Reason : ABD PAIN Blood Pressure : / mmHG Vent. Rate : 080 BPM Atrial Rate : 080 BPM P-R Int : 166 ms QRS Dur : 066 ms QT Int : 342 ms P-R-T Axes : 065 055 081 degrees QTc Int : 394 ms Normal sinus rhythm Normal ECG When compared with ECG of 20-APR-2019 09:50, No significant change was found Referred By: Wong Osorio Electronically Signed By:Jw Tejada
--- NOTE | ~2021-05-04 | CT_ITS ---
EXAMINATION: CT ABDOMEN AND PELVIS WITH CONTRAST CLINICAL INFORMATION: Black stools. Diffuse abdominal pain. COMPARISON: CT abdomen and pelvis with contrast 03/19/2019. TECHNIQUE: Multidetector volumetric images were obtained from the superior aspect of the liver through the pubic symphysis following administration 85 mL of Omnipaque 350 intravenous contrast. Sagittal and coronal reformatted images were obtained on the technologist's workstation. Oral contrast: No This CT examination was performed using dose optimization techniques as appropriate, variously including the following: *Automated exposure control *Adjustment of mA and/or kV according to patient size (this includes techniques or standardized protocols for targeted exams where dose is matched to indication/reason for exam; i.e. extremities or head) *Use of iterative reconstruction technique DLP: 613 mGy-cm FINDINGS: LUNG BASES: The visualized lung bases are unremarkable. LIVER, GALLBLADDER, AND BILIARY TREE: The liver is normal in size and smooth in contour and uniform in attenuation. There is small minor focal fatty change in anterior left lobe segment 4 adjacent to the intersegmental fissure. There is been prior cholecystectomy. No intrahepatic or extrahepatic biliary ductal dilatation. PANCREAS: Unremarkable. SPLEEN: Unremarkable. ADRENAL GLANDS: Unremarkable. KIDNEYS AND URETERS: The kidneys are normal in size, contour, and enhance symmetrically. There are 2 small incidental cysts again seen left kidney upper and midpole age approximately 1.2 cm. No additional imaging follow-up required. There is no hydronephrosis, hydroureter, or perinephric stranding. No urinary tract calculi. BLADDER: Unremarkable. GASTROINTESTINAL TRACT: There is no bowel obstruction or focal inflammatory changes in the bowel or mesentery. The appendix is normal. There are scattered diverticula throughout the colon. No focal changes to suggest diverticulitis. No ascites or fluid collection. No pneumatosis or free air. ABDOMINAL WALL: Tiny fat-containing umbilical hernia. Fat-containing left inguinal hernia 3.2 cm in diameter. LYMPH NODES: No lymphadenopathy. VASCULAR: Unremarkable. PELVIC VISCERA: No acute abnormality. Penile implant again noted with right sided reservoir. OSSEOUS STRUCTURES: Degenerative changes lumbosacral junction. No acute bony abnormality. CT/CT abdomen pelvis w con IMPRESSION: 1. No bowel obstruction or focal inflammatory changes. Numerous diverticula. No diverticulitis. Normal appendix. 2. Prior cholecystectomy. No ductal dilatation.
--- NOTE | 2021-05-04 10:45 | ED.GENADULT ---
HPI - General Adult General Chief complaint: General Medical Stated complaint: rash Time Seen by Provider: 05/04/21 09:59 Source: patient and EMS Mode of arrival: EMS Limitations: language barrier (Greenlandic-speaking) History of Present Illness HPI narrative: 69-year-old male with a past medical history of psoriasis, type 2 diabetes, hypertension, hyperlipidemia, nonrheumatic aortic stenosis, anemia, GERD and loss of hearing who is presenting to the ED with complaints of worsening psoriasis rash on his scalp/face/bilateral arms/groin and lower extremities over the past 2 days. 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 also reports that he has had some diffuse abdominal pain and black colored diarrhea for the past 2 days as well. He denies any fevers, chills, headaches, dizziness, palpitations, chest pain, shortness of breath, radiation of the abdominal pain, nausea/vomiting, back pain, dysuria, hematuria, constipation, recent travel or sick contacts or possible bad food exposure or any other symptoms complaints or concerns at this time. MD complaint: Worsening psoriasis rash and abdominal pain with black stools Onset (ago): day(s) (2 days worse today) Related Data Home Medications Medication Instructions Recorded Confirmed amlodipine 2.5 mg tablet 2.5 mg PO DAILY 09/07/20 05/04/21 amoxicillin 875 mg-potassium 1 tab PO BID 05/04/21 05/04/21 clavulanate 125 mg tablet fluticasone 500 mcg-salmeterol 50 1 inh PO BID 05/04/21 05/04/21 mcg/dose blistr powdr for inhalation (Wixela Inhub) insulin glargine 100 unit/mL (3 25 unit SUBCUT QPM 05/04/21 05/04/21 mL) subcutaneous pen (Lantus Solostar U-100 Insulin) ipratropium 20 mcg-albuterol 100 1 puff INHALATION Q6H 05/04/21 05/04/21 mcg/actuation mist for inhalation (Combivent Respimat) lisinopril 20 mg tablet 1 tab PO DAILY 05/04/21 05/04/21 naproxen 500 mg tablet 1 tab PO BID 05/04/21 05/04/21 sodium polystyrene sulfonate 30 g PO MOFR PRN 05/04/21 05/04/21 Previous Rx's Medication Instructions Recorded pravastatin 20 mg tablet 20 mg PO DAILY 90 Days #90 tab 10/03/20 onetouch glucometer #1 ea 10/09/20 gabapentin 300 mg capsule 300 mg PO DAILY 90 Days #90 cap 10/15/20 cyanocobalamin (vitamin B-12) 1,000 mcg PO DAILY #90 tab 11/24/20 1,000 mcg tablet aspirin 81 mg tablet,delayed 81 mg PO DAILY #90 tab 11/25/20 release linagliptin 5 mg tablet (Tradjenta) 5 mg PO DAILY #30 tab 12/14/20 lancets 33 gauge (OneTouch Delica #100 ea 12/15/20 Lancets) pen needle, diabetic 31 gauge x #1200 ea 12/23/2002/14 (BD Ultra-Fine Short Pen Needle) tamsulosin 0.4 mg capsule 0.4 mg PO DAILY #90 cap 01/24/21 blood sugar diagnostic (OneTouch #100 ea 02/11/21 Verio test strips) diabetic shoes #1 ea 03/11/21 omeprazole 20 mg capsule,delayed 20 mg PO BID #180 cap 04/09/21 release empagliflozin 25 mg tablet 25 mg PO QAM #30 tab 04/15/21 (Jardiance) Allergies Allergy/AdvReac Type Severity Reaction Status Date / Time doxycycline Allergy Intermediate Itching Verified 03/11/21 10:52 levofloxacin Allergy Intermediate Itching Verified 03/11/21 10:52 metformin Allergy Intermediate diarrhea Verified 03/11/21 10:52 morphine [MORPHINE] Allergy Intermediate ITCHING Verified 03/11/21 10:52 tetracycline Allergy Intermediate Itching Verified 03/11/21 10:52 Cefazolin Sodium Allergy Intermediate Itching Uncoded 03/11/21 10:52 Review of Systems Review of Systems: Constitutional : No Weight loss, No Fever, No Chills, No Night Sweats, No Fatigue, No Malaise, No recent illness Head: No facial swelling, No facial redness Eyes: Eyes: No Eye Pain, No Swelling, No Redness ENT/Mouth: No ear pain, No sore throat, No Difficulty swallowing, No oral/throat swelling, No Hoarseness, Cardiovascular : No Chest Pain, No SOB, No Dyspnea on Exertion, No Orthopnea, NoEdema, No Palpitations Respiratory : No Cough, No Sputum, No Wheezing, No Dyspnea Gastrointestinal : Positive abdominal pain with black colored diarrhea, No Nausea, No Vomiting, No blood streaked emesis, No coffee-ground emesis, No gross hematemesis, No blood streak stool, No gross hematochezia Genitourinary : No irregular bleeding, No Dysuria, No Urinary Frequency, No Hematuria,No Urinary Incontinence, No Urgency, No Flank Pain Musculoskeletal : No joint pain, No Myalgias, No Joint Swelling Skin : No Skin Lesions, positive rash Neuro : No Weakness, No Numbness, No Paresthesias, No Loss of Consciousness, No Dizziness, No Headache, No tingling Psych : No Social Issues, No Anxiety/Panic, No Depression Heme/Lymph: No Bruising, No Bleeding,No Lymphadenopathy Endocrine : No Polyuria, No Polydipsia, No Temperature Intolerance Denies changes in lotions or detergents. Denies new medications or any changes in medications. Denies drainage from rash. Denies any recent sick contacts or recent travel. Yes all other systems are reviewed and are negative [facility] Past Medical History Attestation statement: The following information was validated with the patient. Medical History Asthma Diabetes Essential hypertension GERD (gastroesophageal reflux disease) High cholesterol HTN (hypertension) Hypertension IDDM (insulin dependent diabetes mellitus) Left shoulder pain Loss of hearing Non-rheumatic aortic stenosis Normocytic anemia Otitis Type 2 diabetes mellitus with unspecified complications Surgical History No pertinent past surgical history Family History Family History Father No problems noted. Mother No problems noted. Family/Other FH: mental illness Brother In good health Sister In good health Son In good health Daughter In good health Social History Social History Housing: Apartment Alcohol intake: never Patient Tobacco Use Status: Current everyday Tobacco user Tobacco use type: Cigarette Cigarettes Per Day: 5 e-Cigarette/Vaping Use: Never Used Second Hand Smoke Exposure: No Use of substances other than those prescribed or required for medical reasons: No Advance Directives: No Advance Directives Information Provided: No service: No Current occupational status: disabled Physical Exam Vital Signs: Vital Signs: Last Vital Signs Temp 97.9 F 05/04/21 15:30 Pulse 74 05/04/21 15:30 Resp 18 05/04/21 15:30 BP 108/56 L 05/04/21 15:30 Pulse Ox 100 05/04/21 15:30 Body Mass Index 27.3 vital signs have been reviewed as normal and appeared to be correct. Blood pressure hypotensive 114/59 Heart rate normal. Respiration rate normal. Temperature normal. Oxygen saturation normal. Appearance: Alert. Oriented X3. No acute distress. Head: Normal external exam. Normocephalic. Eyes: PERRLA. EOMI. Conjunctiva and sclera normal. Eyelids normal. ENT: Pharynx normal. Uvula midline. Moist mucous membranes. Neck: Normal inspection. Neck supple. FROM. No adenopathy. No meningeal signs. CVS: Normal heart rate and rhythm. Heart sound normal. No murmurs noted. Pulses normal throughout. Respiratory: No respiratory distress. Painless inspiration. Breath sounds normal. No wheezes/rales/rhonchi noted. Chest nontender. No accessory muscle usage noted or decreased air movement noted. Abdomen: Soft and mild tenderness diffusely no point tenderness or guarding. Nondistended. No rigidity. Bowel sounds normal in all 4 quadrants. No distention noted. No organomegaly noted. No visible injury noted. No rebound tenderness. Negative Rovsing sign. Negative obturator's sign. Negative psoas sign. Negative Nielson sign. Back: No CVA tenderness. Full range of motion noted. Skin: The patient's body he has dry, silver plaques and scales consistent with psoriasis although to right upper extremity patient has moderate surrounding erythema questioning streaking. No drainage/fluctuance/induration/foreign bodies noted. to groin/bottocks patient has dry silver plaques and scales consistent with psoriasis although has moderate erythema therefore most likely superimposed with cellulitis/fungal. Otherwise the rest of the skin is and dry. Normal skin color. Normal skin turgor. No lacerations noted. Extremities: Extremities exhibit normal range of motion. Extremities nontender. Neuro: Oriented X 3. No motor deficit. No sensory deficit. Reflexes normal. Normal steady gait. No focal neuro deficits noted. Vascular: + radial pulses/+ 2 distal pedal pulses/+2 dorsalis pedis b/l. Normal cap refill. No cyanosis noted to upper extremity nails and lower extremity toes nails. Course Course Course Narrative: 10:50am - 70-year-old male with a past medical history of plaque psoriasis presenting to the ED with complaints of worsening rash for the past 2 days especially in the right upper extremity and groin/buttocks area. 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 Has a separate complaint of diffuse abdominal pain with black colored diarrhea for the past 2 days as well. Plan: Labs, blood cultures, lactic acid, CT scan of abdomen and pelvis with IV contrast provide nystatin ointment and re-evaluate. Reevaluation(s) Reevaluation #1: - Labs reviewed [place] [address]. Mild baseline anemia similar when compared to prior. ESR 33. Chloride 109. Carbon dioxide 20. BUN 20. Random glucose 179. CRP 4.19. UA revealed a 1000 of glucose otherwise no evidence of UTI. Patient is positive for stool occult. Patient negative for COVID. - CT scan of abdomen and pelvis the reading was delayed therefore I ended up calling Renetta the radiologist and she reported that the senior mechanical technician did not transmit the imagings over to them therefore they never had to be red then she said that she would read immediately and below is the CT scan reading - CT scan of abdomen and pelvis revealed no bowel obstruction or focal inflammatory changes. Numerous diverticula. No diverticulitis. Normal appendix. No acute processes. - therefore will admit for superimposed psoriasis with cellulitis and possible tinea. - Dr. Osorio to admit at this time. Time: 16:47 Medical Decision Making Medical Records Medical records reviewed: Yes I reviewed the patient's medical records. Lab Data Lab results reviewed: Yes I reviewed the patient's lab results. Result diagrams: 05/04/21 10:46 05/04/21 10:46 Labs: Lab Results 05/04/21 05/04/21 05/04/21 Range/Units 10:46 10:46 10:46 WBC 16.3 H (4.8-10.8) X10*3/uL RBC 4.45 L (4.60-5.80) X10*6/uL Hgb 13.4 L (14.0-18.0) g/dl Hct 40.7 L (42-52) % MCV 91.5 (80-98) fL MCH 30.1 (27.0-33.0) pg MCHC 32.9 (31.0-36.0) g/dl RDW 13.2 (11.0-16.0) % Plt Count 218 (160-400) X10*3/uL MPV 10.3 (9.4-12.4) fL Immature Gran % (Auto) 0.7 H (0.0-0.4) % Neut % (Auto) 77.6 H (45-73) % Lymph % (Auto) 6.1 L (20-40) % [place] % (Auto) 6.7 (2-11) % Eos % (Auto) 8.7 H (0-4) % Baso % (Auto) 0.2 (0-2) % Lymph # (Auto) 1.0 L (1.2-4.9) X10*3/uL [place] # (Auto) 1.1 (0.1-1.2) X10*3/uL Eos # (Auto) 1.4 H (0.0-0.4) X10*3/uL Baso # (Auto) 0.0 (0.0-0.2) X10*3/uL Abs Immat Gran (auto) 0.11 H (0.00-0.03) X10*3/uL Absolute Neuts (auto) 12.6 H (2.0-8.3) X10*3/uL Absolute Nucleated RBC 0.000 (0.0-0.012) X10*3/uL Nucleated RBC % (auto) 0.0 (0.0-0.2) /100WBC ESR 33 H (0-15) MM/HR Sodium (135-145) mmol/L Potassium (3.3-5.1) mmol/L Chloride (96-108) mmol/L Carbon Dioxide (22-29) mmol/L Anion Gap (12-20) BUN (9-16) mg/dL Creatinine (0.5-1.4) mg/dL Estim Creat Clear Calc Estimated GFR Random Glucose (60-115) mg/dL Lactic Acid (0.5-2.0) mmol/L Calcium (8.4-10.2) mg/dL Magnesium 1.9 (1.6-2.6) mg/dL Total Bilirubin (0.0-1.0) mg/dL AST (5-37) U/L ALT (0-40) U/L Alkaline Phosphatase (39-117) U/L C-Reactive Protein 4.19 H (< or = 0.50) mg/dL Total Protein (6.5-8.0) g/dL Albumin (3.5-5.0) g/dL Urine Color Urine Appearance Urine pH (5.0-8.0) Ur Specific [place] (1.005-1.025) Urine Protein (NEG-TRACE) MG/DL Urine Glucose (UA) (NEG) MG/DL Urine Ketones (NEG) MG/DL Urine Blood (NEG) Urine Nitrite (NEG) Ur Leukocyte Esterase (NEG) Urine RBC (0) /HPF Urine WBC (0-4) /HPF Ur Squamous Epith Cells /LPF Urine Bacteria /LPF Stool Occult Blood (NEGATIVE) COVID-19 (DOLLY) (Negative) COVID-19 Clin Com 05/04/21 05/04/21 05/04/21 Range/Units 10:46 10:48 10:49 WBC (4.8-10.8) X10*3/uL RBC (4.60-5.80) X10*6/uL Hgb (14.0-18.0) g/dl Hct (42-52) % MCV (80-98) fL MCH (27.0-33.0) pg MCHC (31.0-36.0) g/dl RDW (11.0-16.0) % Plt Count (160-400) X10*3/uL MPV (9.4-12.4) fL Immature Gran % (Auto) (0.0-0.4) % Neut % (Auto) (45-73) % Lymph % (Auto) (20-40) % [place] % (Auto) (2-11) % Eos % (Auto) (0-4) % Baso % (Auto) (0-2) % Lymph # (Auto) (1.2-4.9) X10*3/uL [place] # (Auto) (0.1-1.2) X10*3/uL Eos # (Auto) (0.0-0.4) X10*3/uL Baso # (Auto) (0.0-0.2) X10*3/uL Abs Immat Gran (auto) (0.00-0.03) X10*3/uL Absolute Neuts (auto) (2.0-8.3) X10*3/uL Absolute Nucleated RBC (0.0-0.012) X10*3/uL Nucleated RBC % (auto) (0.0-0.2) /100WBC ESR (0-15) MM/HR Sodium 138 (135-145) mmol/L Potassium 4.9 (3.3-5.1) mmol/L Chloride 109 H (96-108) mmol/L Carbon Dioxide 20 L (22-29) mmol/L Anion Gap 14 (12-20) BUN 20 H (9-16) mg/dL Creatinine 1.26 (0.5-1.4) mg/dL Estim Creat Clear Calc 55.8 Estimated GFR 57 Random Glucose 179 H (60-115) mg/dL Lactic Acid 1.1 (0.5-2.0) mmol/L Calcium 8.9 (8.4-10.2) mg/dL Magnesium (1.6-2.6) mg/dL Total Bilirubin 0.4 (0.0-1.0) mg/dL AST 21 (5-37) U/L ALT 24 (0-40) U/L Alkaline Phosphatase 76 D (39-117) U/L C-Reactive Protein (< or = 0.50) mg/dL Total Protein 7.0 (6.5-8.0) g/dL Albumin 4.1 (3.5-5.0) g/dL Urine Color Urine Appearance Urine pH (5.0-8.0) Ur Specific [place] (1.005-1.025) Urine Protein (NEG-TRACE) MG/DL Urine Glucose (UA) (NEG) MG/DL Urine Ketones (NEG) MG/DL Urine Blood (NEG) Urine Nitrite (NEG) Ur Leukocyte Esterase (NEG) Urine RBC (0) /HPF Urine WBC (0-4) /HPF Ur Squamous Epith Cells /LPF Urine Bacteria /LPF Stool Occult Blood (NEGATIVE) COVID-19 (DOLLY) Negative (Negative) COVID-19 Clin Com See Note 05/04/21 05/04/21 Range/Units 11:28 12:18 WBC (4.8-10.8) X10*3/uL RBC (4.60-5.80) X10*6/uL Hgb (14.0-18.0) g/dl Hct (42-52) % MCV (80-98) fL MCH (27.0-33.0) pg MCHC (31.0-36.0) g/dl RDW (11.0-16.0) % Plt Count (160-400) X10*3/uL MPV (9.4-12.4) fL Immature Gran % (Auto) (0.0-0.4) % Neut % (Auto) (45-73) % Lymph % (Auto) (20-40) % [place] % (Auto) (2-11) % Eos % (Auto) (0-4) % Baso % (Auto) (0-2) % Lymph # (Auto) (1.2-4.9) X10*3/uL [place] # (Auto) (0.1-1.2) X10*3/uL Eos # (Auto) (0.0-0.4) X10*3/uL Baso # (Auto) (0.0-0.2) X10*3/uL Abs Immat Gran (auto) (0.00-0.03) X10*3/uL Absolute Neuts (auto) (2.0-8.3) X10*3/uL Absolute Nucleated RBC (0.0-0.012) X10*3/uL Nucleated RBC % (auto) (0.0-0.2) /100WBC ESR (0-15) MM/HR Sodium (135-145) mmol/L Potassium (3.3-5.1) mmol/L Chloride (96-108) mmol/L Carbon Dioxide (22-29) mmol/L Anion Gap (12-20) BUN (9-16) mg/dL Creatinine (0.5-1.4) mg/dL Estim Creat Clear Calc Estimated GFR Random Glucose (60-115) mg/dL Lactic Acid (0.5-2.0) mmol/L Calcium (8.4-10.2) mg/dL Magnesium (1.6-2.6) mg/dL Total Bilirubin (0.0-1.0) mg/dL AST (5-37) U/L ALT (0-40) U/L Alkaline Phosphatase (39-117) U/L C-Reactive Protein (< or = 0.50) mg/dL Total Protein (6.5-8.0) g/dL Albumin (3.5-5.0) g/dL Urine Color YELLOW Urine Appearance HAZY Urine pH 5.5 (5.0-8.0) Ur Specific [place] 1.015 (1.005-1.025) Urine Protein NEG (NEG-TRACE) MG/DL Urine Glucose (UA) >=1000 H (NEG) MG/DL Urine Ketones NEG (NEG) MG/DL Urine Blood TRACE (NEG) Urine Nitrite NEG (NEG) Ur Leukocyte Esterase NEG (NEG) Urine RBC 5-9 H (0) /HPF Urine WBC 0 (0-4) /HPF Ur Squamous Epith Cells NONE /LPF Urine Bacteria NONE /LPF Stool Occult Blood POSITIVE (NEGATIVE) COVID-19 (DOLLY) (Negative) COVID-19 Clin Com Imaging Data CT scan abdomen pelvis with IV contrast: Attestation: I personally reviewed and interpreted this imaging study as follows: Radiologist's impression: FINDINGS: LUNG BASES: The visualized lung bases are unremarkable.? LIVER, GALLBLADDER, AND BILIARY TREE: The liver is normal in size and smooth in contour and uniform in attenuation. There is small minor focal fatty change in anterior left lobe segment 4 adjacent to the intersegmental fissure. There is been prior cholecystectomy. No intrahepatic or extrahepatic biliary ductal dilatation. PANCREAS: Unremarkable.? SPLEEN: Unremarkable.? ADRENAL GLANDS: Unremarkable.? KIDNEYS AND URETERS: The kidneys are normal in size, contour, and enhance symmetrically. There are 2 small incidental cysts again seen left kidney upper and midpole age approximately 1.2 cm. No additional imaging follow-up required. There is no hydronephrosis, hydroureter, or perinephric stranding. No urinary tract calculi.? BLADDER: Unremarkable.? GASTROINTESTINAL TRACT: There is no bowel obstruction or focal inflammatory changes in the bowel or mesentery. The appendix is normal. There are scattered diverticula throughout the colon. No focal changes to suggest diverticulitis. No ascites or fluid collection. No pneumatosis or free air.? ABDOMINAL WALL: Tiny fat-containing umbilical hernia. Fat-containing left inguinal hernia 3.2 cm in diameter.? LYMPH NODES: No lymphadenopathy. VASCULAR: Unremarkable. PELVIC VISCERA: No acute abnormality. Penile implant again noted with right sided reservoir.? OSSEOUS STRUCTURES: Degenerative changes lumbosacral junction. No acute bony abnormality.? CT/CT abdomen pelvis w con IMPRESSION: ? 1. No bowel obstruction or focal inflammatory changes. Numerous diverticula. No diverticulitis. Normal appendix. ? 2. Prior cholecystectomy. No ductal dilatation. Critical Care Time Critical Care Time Critical Care Time: Yes Total Critical Care Time: 60 Attestation: I personally attest to this time spent taking care of the patient Discharge Plan Discharge Clinical Impression: Psoriasis, Anemia, Cellulitis, Occult blood positive stool, Tinea Patient Disposition: Admitted As Inpatient
[2021-05-04 10:57] LABS: MANUAL DIFF FLAG NO
[2021-05-04 11:00] LABS: Basophils Percent Auto 0.2 % (0-2); Eosinophils Absolute Auto 1.4 X10*3/uL (0.0-0.4); Eosinophils Percent Auto 8.7 % (0-4); Hematocrit 40.7 % (42-52); Hemoglobin 13.4 g/dl (14.0-18.0); Imm Gran Abs Auto 0.11 X10*3/uL (0.00-0.03); Imm Gran Pct Auto 0.7 % (0.0-0.4); Lymphocytes Percent Auto 6.1 % (20-40); Mean Corpuscular HGB Conc 32.9 g/dl (31.0-36.0); Mean Corpuscular Hemoglobin 30.1 pg (27.0-33.0); Mean Corpuscular Volume 91.5 fL (80-98); Mean Platelet Volume 10.3 fL (9.4-12.4); Monocytes Absolute Auto 1.1 X10*3/uL (0.1-1.2); Monocytes Percent Auto 6.7 % (2-11); Neutrophils Absolute Auto 12.6 X10*3/uL (2.0-8.3); Neutrophils Percent Auto 77.6 % (45-73); Platelet Count 218 X10*3/uL (160-400); Red Blood Count 4.45 X10*6/uL (4.60-5.80); Red Cell Distribution Width 13.2 % (11.0-16.0); White Blood Count 16.3 X10*3/uL (4.8-10.8)
[2021-05-04 11:19] LABS: COVID-19 Test Negative (Negative)
--- NOTE | 2021-05-04 11:20 | PC.NURSE ---
pt's r/l lateral side of neck is slighly adelina and strippen, pt's r arm has red rash, pt groin/buttocks very adelina and stripping
[2021-05-04 11:26] LABS: Lactic Acid 1.1 mmol/L (0.5-2.0)
[2021-05-04 11:30] LABS: C Reactive Protein 4.19 mg/dL (< or = 0.50); Magnesium 1.9 mg/dL (1.6-2.6)
[2021-05-04 11:33] LABS: Alanine Aminotransferase 24 U/L (0-40); Albumin Level 4.1 g/dL (3.5-5.0); Alkaline Phosphatase 76 U/L (39-117); Anion Gap 14 (12-20); Aspartate Amino Transferase 21 U/L (5-37); Bilirubin Total 0.4 mg/dL (0.0-1.0); Blood Urea Nitrogen 20 mg/dL (9-16); Calcium 8.9 mg/dL (8.4-10.2); Carbon Dioxide 20 mmol/L (22-29); Chloride 109 mmol/L (96-108); Creatinine Clr Calc Pharmacy 55.8; Estimated Glomerular Filt Rate 57; Glucose Random 179 mg/dL (60-115); Potassium 4.9 mmol/L (3.3-5.1); Sodium 138 mmol/L (135-145)
[2021-05-04 11:50] LABS: Erythrocyte Sedimentation Rate 33 MM/HR (0-15)
[2021-05-04] MEDS: Piperacillin Sodium/Tazobactam 3.375 GM in 0.9 % Sodium Chloride 50 ML IV (11:53)
[2021-05-04 11:55] LABS: Appearance Urine HAZY; Color Urine YELLOW; Glucose Urine UA >=1000 MG/DL (NEG); Leukocyte Esterase Urine NEG (NEG); Nitrite Urine NEG (NEG); PH 5.5 (5.0-8.0); Specific Gravity - Urine 1.015 (1.005-1.025); UACC Culture Trigger NO; Urine Blood TRACE (NEG); Urine Ketones NEG (NEG); Urine Protein NEG (NEG-TRACE)
[2021-05-04] MEDS: iohexoL 350 MG/ML 100 ML INFUS..BTL 85 ML IV (12:12)
[2021-05-04 12:13] LABS: WBC Urine 0 /HPF (0-4)
[2021-05-04 12:23] LABS: OBS Int Ctl Valid YES; OBS1 POSITIVE (NEGATIVE)
--- NOTE | 2021-05-04 15:31 | PC.NURSE ---
Pt back from [facility] states he declined b/c hes had reddness in scrotum for extended period and is here only for rash. Rash started 1 week ago.
--- NOTE | 2021-05-04 17:06 | PHA.MEDREC ---
Pharmacy Consult ? Medication Reconciliation Pharmacy has completed the medication reconciliation.
--- NOTE | 2021-05-04 17:28 | P.HPHOSP_ITS ---
History of Present Illness Date of Service: 05/04/21 Chief Complaint: Skin rash, abdominal pain A 70 years old male with PMH of diabetes, HTN, aortic stenosis, psoriasis who presents to the hospital with complaint of a skin rash and abdominal pain for the last 5 days. The patient reports that starting last week he noticed rash starting over his hands and in the groin area associated with itching and burning sensation with reported chills but no fever. His skin started to slough mainly in the hands and that is causing more pain holding or touching anything. The rash extended into his lower abdomen, axillary and groin area and to his back as well. He is reporting the rash is itchy and burning mild tenderness noted on other locations. He was taking Augmentin with no improvement. He is also reporting abdominal pain that is mainly around the umbilical area not radiating anywhere else, not severe and not consistent usually related to diet and he had it before but it was little worse this time. [place] [id number]. Tested positive for occult blood A CT Scan in the emergency negative for any acute findings Review of Systems Review of Systems: No fever, chills or weakness No chest pain, palpitation No shortness of breath or coughing Reporting mild abdominal pain with no nausea or vomiting No urinary symptoms Extensive rash with associated itching PMFSH Medical History Asthma Diabetes Essential hypertension GERD (gastroesophageal reflux disease) High cholesterol HTN (hypertension) Hypertension IDDM (insulin dependent diabetes mellitus) Left shoulder pain Loss of hearing Non-rheumatic aortic stenosis Normocytic anemia Otitis Type 2 diabetes mellitus with unspecified complications Family History Father No problems noted. Mother No problems noted. Family/Other FH: mental illness Brother In good health Sister In good health Son In good health Daughter In good health Surgical History No pertinent past surgical history Social History Housing: Apartment Alcohol intake: never Patient Tobacco Use Status: Current everyday Tobacco user Tobacco use type: Cigarette Cigarettes Per Day: 5 e-Cigarette/Vaping Use: Never Used Second Hand Smoke Exposure: No Use of substances other than those prescribed or required for medical reasons: No Advance Directives: No Advance Directives Information Provided: No service: No Current occupational status: disabled Meds Allergies Allergy/AdvReac Type Severity Reaction Status Date / Time doxycycline Allergy Intermediate Itching Verified 03/11/21 10:52 levofloxacin Allergy Intermediate Itching Verified 03/11/21 10:52 metformin Allergy Intermediate diarrhea Verified 03/11/21 10:52 morphine [MORPHINE] Allergy Intermediate ITCHING Verified 03/11/21 10:52 tetracycline Allergy Intermediate Itching Verified 03/11/21 10:52 Cefazolin Sodium Allergy Intermediate Itching Uncoded 03/11/21 10:52 Active Medications: Current Medications Generic Name Dose Route Start Last Admin Trade Name Freq PRN Reason Stop Dose Admin Acetaminophen 650 mg 05/04/21 17:12 Acetaminophen 325 Mg Tablet PO Q6H PRN Pain, Mild (Pain Scale 1-3) Albuterol/Ipratropium 3 ml 05/04/21 17:10 Albuterol/Iprat 2.5/0.5mg 3 Ml Ampul.Neb INHALE Q4H PRN Shortness of Breath/Wheezing Amlodipine Besylate 2.5 mg 05/05/21 09:00 Amlodipine Besylate 2.5 Mg Tablet PO DAILY [facility] Protocol Aspirin 81 mg 05/05/21 09:00 Aspirin Enteric Coated 81 Mg Tablet.Dr PO DAILY [facility] Cyanocobalamin 1,000 mcg 05/05/21 09:00 Cyanocobalamin (Vitamin B-12) 1,000 Mcg Tablet PO DAILY [facility] Gabapentin 300 mg 05/05/21 09:00 Gabapentin 300 Mg Capsule PO DAILY [facility] Clindamycin Phosphate 300 mg in 50 mls @ 100 mls/hr 05/04/21 17:30 Cleocin IV Q8H [facility] Insulin Glargine 25 unit 05/04/21 17:15 Insulin Glargine,Hum.Rec.Anlog 100 Unit/Ml 10 Ml Vial SUBCUT QPM [facility] Insulin Human Lispro 0 unit 05/04/21 21:00 Insulin Lispro 100 Unit/Ml 3 Ml Vial SUBCUT QIDACHS [facility] Protocol Lidocaine 1 appl 05/04/21 17:17 Lidocaine 5 % Ointment 35 Gm TOPICAL Q6H PRN Breakthrough Pain Protocol Lisinopril 20 mg 05/05/21 09:00 Lisinopril 20 Mg Tablet PO DAILY [facility] Protocol Methylprednisolone Sodium Succinate 40 mg 05/04/21 17:17 Methylprednisolone Sod Succ 40 Mg/Ml Vial IVPUSH 05/04/21 17:18 ONCE ONE Non-Formulary Medication 1 inhalation 05/04/21 21:00 Fluticasone Propion-Salmeterol [Wixela Inhub] PO BID [facility] Nystatin/Triamcinolone Acetonide 1 appl 05/04/21 21:00 Nystatin/Triamcinolone Cream 15 Gm Tube TOPICAL BID [facility] Protocol Omeprazole 20 mg 05/04/21 21:00 Omeprazole 20 Mg Capsule.Dr PO BID [facility] Ondansetron HCl 4 mg 05/04/21 17:12 Ondansetron Hcl 4 Mg/2 Ml Vial IVPUSH Q8H PRN Nausea and Vomiting Pharmacy Consult 1 each 05/04/21 16:34 Consult Rx Perform Med Rec MISCELLANE ONCE PRN Consult order Pravastatin Sodium 20 mg 05/05/21 09:00 Pravastatin Sodium 20 Mg Tablet PO DAILY [facility] Rivaroxaban 10 mg 05/05/21 09:00 Rivaroxaban 10 Mg Tablet PO DAILY [facility] Sodium Chloride 3 ml 05/05/21 00:00 0.9 % Sodium Chloride Flush 3 Ml Syringe IVFLUSH QSHIFT [facility] Tamsulosin HCl 0.4 mg 05/05/21 09:00 Tamsulosin Hcl 0.4 Mg Capsule PO DAILY [facility] Home Medications Medication Instructions Recorded Confirmed Last Taken Type amlodipine 2.5 mg tablet 2.5 mg PO DAILY 09/07/20 05/04/21 Unknown History amoxicillin 875 mg-potassium 1 tab PO BID 05/04/21 05/04/21 Unknown History clavulanate 125 mg tablet fluticasone 500 mcg-salmeterol 50 1 inh PO BID 05/04/21 05/04/21 Unknown History mcg/dose blistr powdr for inhalation (Wixela Inhub) insulin glargine 100 unit/mL (3 25 unit SUBCUT QPM 05/04/21 05/04/21 Unknown History mL) subcutaneous pen (Lantus Solostar U-100 Insulin) ipratropium 20 mcg-albuterol 100 1 puff INHALATION Q6H 05/04/21 05/04/21 Unknown History mcg/actuation mist for inhalation (Combivent Respimat) lisinopril 20 mg tablet 1 tab PO DAILY 05/04/21 05/04/21 Unknown History naproxen 500 mg tablet 1 tab PO BID 05/04/21 05/04/21 Unknown History sodium polystyrene sulfonate 30 g PO MOFR PRN 05/04/21 05/04/21 Unknown History Physical Exam Vital Signs and Narrative: Vital Signs: Last Vital Signs Temp 97.9 F 05/04/21 15:30 Pulse 74 05/04/21 15:30 Resp 18 05/04/21 15:30 BP 108/56 L 05/04/21 15:30 Pulse Ox 100 05/04/21 15:30 Body Mass Index 27.3 Const: Other: Constitutional : Alert, oriented, not in distress Neck : Normal inspection, Supple Cardiovascular : RRR, S1 S2, no lower extremity edema Respiratory : Good bilateral air entry, no crackles, wheezes or rhonchi Gastrointestinal: soft, lax, Normal bowel sounds, Non tender Skin : Warm, Dry, multiple areas of rash mainly for height extending to the axillary area with no drainage noted. Significant inguinal area rash with redness and mild tenderness. Back rash with some is of tenderness. Neurological : Alert & oriented x3, No focal deficit Results Labs CBC and Chem 7: 05/04/21 10:46 05/04/21 10:46 Labs: Laboratory Results - last 24 hr 05/04/21 05/04/21 05/04/21 10:46 10:46 10:46 MCV 91.5 MCH 30.1 MCHC 32.9 RDW 13.2 Plt Count 218 MPV 10.3 Immature Gran % (Auto) 0.7 H Neut % (Auto) 77.6 H Lymph % (Auto) 6.1 L Divide % (Auto) 6.7 Eos % (Auto) 8.7 H Baso % (Auto) 0.2 Lymph # (Auto) 1.0 L Divide # (Auto) 1.1 Eos # (Auto) 1.4 H Baso # (Auto) 0.0 Abs Immat Gran (auto) 0.11 H Absolute Neuts (auto) 12.6 H Absolute Nucleated RBC 0.000 Nucleated RBC % (auto) 0.0 ESR 33 H Anion Gap Estim Creat Clear Calc Estimated GFR Random Glucose Lactic Acid Calcium Magnesium 1.9 Total Bilirubin AST ALT Alkaline Phosphatase C-Reactive Protein 4.19 H Total Protein Albumin Urine Color Urine Appearance Urine pH Ur Specific Glendo Urine Protein Urine Glucose (UA) Urine Ketones Urine Blood Urine Nitrite Ur Leukocyte Esterase Urine RBC Urine WBC Ur Squamous Epith Cells Urine Bacteria Stool Occult Blood COVID-19 (DOLLY) COVID-19 Clin Com 05/04/21 05/04/21 05/04/21 10:46 10:48 10:49 MCV MCH MCHC RDW Plt Count MPV Immature Gran % (Auto) Neut % (Auto) Lymph % (Auto) Divide % (Auto) Eos % (Auto) Baso % (Auto) Lymph # (Auto) Divide # (Auto) Eos # (Auto) Baso # (Auto) Abs Immat Gran (auto) Absolute Neuts (auto) Absolute Nucleated RBC Nucleated RBC % (auto) ESR Anion Gap 14 Estim Creat Clear Calc 55.8 Estimated GFR 57 Random Glucose 179 H Lactic Acid 1.1 Calcium 8.9 Magnesium Total Bilirubin 0.4 AST 21 ALT 24 Alkaline Phosphatase 76 D C-Reactive Protein Total Protein 7.0 Albumin 4.1 Urine Color Urine Appearance Urine pH Ur Specific Glendo Urine Protein Urine Glucose (UA) Urine Ketones Urine Blood Urine Nitrite Ur Leukocyte Esterase Urine RBC Urine WBC Ur Squamous Epith Cells Urine Bacteria Stool Occult Blood COVID-19 (DOLLY) Negative COVID-19 Clin Com See Note 05/04/21 05/04/21 11:28 12:18 MCV MCH MCHC RDW Plt Count MPV Immature Gran % (Auto) Neut % (Auto) Lymph % (Auto) Divide % (Auto) Eos % (Auto) Baso % (Auto) Lymph # (Auto) Divide # (Auto) Eos # (Auto) Baso # (Auto) Abs Immat Gran (auto) Absolute Neuts (auto) Absolute Nucleated RBC Nucleated RBC % (auto) ESR Anion Gap Estim Creat Clear Calc Estimated GFR Random Glucose Lactic Acid Calcium Magnesium Total Bilirubin AST ALT Alkaline Phosphatase C-Reactive Protein Total Protein Albumin Urine Color YELLOW Urine Appearance HAZY Urine pH 5.5 Ur Specific Glendo 1.015 Urine Protein NEG Urine Glucose (UA) >=1000 H Urine Ketones NEG Urine Blood TRACE Urine Nitrite NEG Ur Leukocyte Esterase NEG Urine RBC 5-9 H Urine WBC 0 Ur Squamous Epith Cells NONE Urine Bacteria NONE Stool Occult Blood POSITIVE COVID-19 (DOLLY) COVID-19 Clin Com Imaging Radiologist's Impressions: Impressions Abdomen/Pelvis CT 05/04/21 10:21 IMPRESSION: 1. No bowel obstruction or focal inflammatory changes. Numerous diverticula. No diverticulitis. Normal appendix. 2. Prior cholecystectomy. No ductal dilatation. Assessment and Plan (1) Rash: Status: Acute (2) Cellulitis: Status: Acute (3) Occult blood positive stool: Status: Acute A 70 years old male with PMH of diabetes, HTN, aortic stenosis, psoriasis who presents to the hospital with complaint of a skin rash and abdominal pain for the last 5 days. Cellulitis Elevated WBCs but not septic Inguinal area possible folliculitis and fungal infection Multiple drug allergies Start clindamycin 300 mg q.8 To use nystatin cream with steroids To get wound team to evaluate the patient Itching Multiple areas of allergic like reaction including upper extremity and back; does not look psoriatic rash To give a dose of methylprednisone Start Benadryl as needed for itching Positive occult blood Recent colonoscopy 9 years ago or so Patient denies anemia symptoms Hemoglobin around 13, to trend Will hold on GI consult unless there is a significant drop in hemoglobin Diabetes type 2 Hold p.o. medications Start SSI and home dose Lantus HTN Amlodipine, lisinopril DVT PPX SCDs, for positive occult blood Quality Stroke Does the patient have a stroke diagnosis?: No VTE Prior VTE?: No VTE Risk Level:: Medical - moderate - high VTE Device Contraindication: Treatment Not Indicated VTE Drug Contraindication: N/A - Med Ordered
[2021-05-04] MEDS: Acetaminophen 325 MG TABLET 975 MG PO (18:08)
[2021-05-04] MEDS: methylPREDNISolone Sod Succ 40 MG/ML VIAL IVPUSH (18:09)
[2021-05-04 18:26] LABS: Glucose, Whole Blood 71 mg/dL (60-115)
[2021-05-04] MEDS: Clindamycin Phosphate/D5W 300 MG/50 ML PIGGYBACK 100 MG IV (20:47)
[2021-05-04 21:17] LABS: Glucose, Whole Blood 264 mg/dL (60-115)
[2021-05-04] MEDS: Insulin Lispro 100 UNIT/ML 3 ML VIAL SUBCUT (21:38)
[2021-05-04] MEDS: Insulin Glargine,Hum.rec.anlog 100 UNIT/ML 10 ML VIAL 25 UNIT SUBCUT (21:38)
[2021-05-04] MEDS: 0.9 % Sodium Chloride Flush 3 ML SYRINGE IVFLUSH (21:39)
[2021-05-04] MEDS: Nystatin/Triamcinolone Cream 15 GM TUBE 1 APPL TOPICAL (22:50)
[2021-05-05] MEDS: Albuterol/Iprat 2.5/0.5MG 3 ML AMPUL.NEB INHALE (00:01)
[2021-05-05 00:02] VITALS: PULSE 82; O2SAT 99
[2021-05-05] MEDS: Clindamycin Phosphate/D5W 300 MG/50 ML PIGGYBACK 100 MG IV (03:31)
[2021-05-05 03:51] VITALS: BP 123/67; PULSE 81; RESP 16; TEMP 36.6; O2SAT 96
[2021-05-05] MEDS: Omeprazole 20 MG CAPSULE.DR PO (06:10)
[2021-05-05 06:46] LABS: Hemoglobin 13.4 g/dl (14.0-18.0); Mean Corpuscular HGB Conc 32.7 g/dl (31.0-36.0); Mean Corpuscular Hemoglobin 29.5 pg (27.0-33.0); Mean Corpuscular Volume 90.3 fL (80-98); Mean Platelet Volume 10.3 fL (9.4-12.4); Platelet Count 248 X10*3/uL (160-400); Red Blood Count 4.54 X10*6/uL (4.60-5.80); Red Cell Distribution Width 12.9 % (11.0-16.0); White Blood Count 12.3 X10*3/uL (4.8-10.8)
[2021-05-05 07:03] LABS: Anion Gap 15 (12-20); Blood Urea Nitrogen 24 mg/dL (9-16); Calcium 9.3 mg/dL (8.4-10.2); Carbon Dioxide 21 mmol/L (22-29); Chloride 105 mmol/L (96-108); Creatinine Clr Calc Pharmacy 58.7; Estimated Glomerular Filt Rate > 60; Glucose Random 182 mg/dL (60-115); Potassium 5.4 mmol/L (3.3-5.1); Sodium 136 mmol/L (135-145)
[2021-05-05 07:27] VITALS: BP 143/75; PULSE 91; RESP 18; TEMP 36.7; O2SAT 99
[2021-05-05] MEDS: Nystatin/Triamcinolone Cream 15 GM TUBE 1 APPL TOPICAL (07:31)
[2021-05-05] MEDS: Gabapentin 300 MG CAPSULE PO (07:42)
[2021-05-05] MEDS: Insulin Lispro 100 UNIT/ML 3 ML VIAL SUBCUT ×2 (07:42→12:33)
[2021-05-05] MEDS: Cyanocobalamin (Vitamin B-12) 1,000 MCG TABLET 1000 MCG PO (07:43)
[2021-05-05] MEDS: Aspirin Enteric Coated 81 MG TABLET.DR PO (07:43)
[2021-05-05] MEDS: Pravastatin Sodium 20 MG TABLET PO (07:43)
[2021-05-05] MEDS: amLODIPine Besylate 2.5 MG TABLET PO (07:43)
[2021-05-05] MEDS: 0.9 % Sodium Chloride Flush 3 ML SYRINGE IVFLUSH (07:44)
[2021-05-05] MEDS: Tamsulosin HCL 0.4 MG CAPSULE PO (07:44)
[2021-05-05 08:02] LABS: Glucose, Whole Blood 181 mg/dL (60-115)
[2021-05-05] MEDS: Sodium Polystyrene Sulfon/Sorb 15 GM/60 ML ORAL.SUSP PO (10:15)
[2021-05-05 11:13] VITALS: BP 121/65; PULSE 81; RESP 18; TEMP 36.9; O2SAT 98
[2021-05-05 11:55] LABS: Glucose, Whole Blood 227 mg/dL (60-115)
--- NOTE | 2021-05-05 12:03 | PM.DS ---
DS: Providers Provider Date of Service: 05/05/21 Date of admission: 05/04/21 17:12 Primary care physician: Sheba Corbett MD Consults: 05/04/21 17:15 Consult to Wound Care Routine Consulting Provider: Maira Gutierrez Reason for consultation: eval and rec for hands and groin wounds 05/05/21 11:20 Consult to Infectious Diseases Routine Consulting Provider: Jenn Soria Reason for consultation: rash, already seen Has provider been notified: Yes DS: Diagnosis Discharge Diagnosis (1) Rash: Status: Acute (2) Cellulitis: Status: Acute (3) Occult blood positive stool: Status: Acute DS: Medications Discharge Medications Home Medications: Home Medications Medication Instructions Recorded Confirmed amlodipine 2.5 mg tablet 2.5 mg PO DAILY 09/07/20 05/04/21 fluticasone 500 mcg-salmeterol 50 1 inh PO BID 05/04/21 05/04/21 mcg/dose blistr powdr for inhalation (Wixela Inhub) insulin glargine 100 unit/mL (3 25 unit SUBCUT QPM 05/04/21 05/04/21 mL) subcutaneous pen (Lantus Solostar U-100 Insulin) ipratropium 20 mcg-albuterol 100 1 puff INHALATION Q6H 05/04/21 05/04/21 mcg/actuation mist for inhalation (Combivent Respimat) lisinopril 20 mg tablet 1 tab PO DAILY 05/04/21 05/04/21 sodium polystyrene sulfonate 30 g PO MOFR PRN 05/04/21 05/04/21 Previous Rx's Medication Instructions Recorded pravastatin 20 mg tablet 20 mg PO DAILY 90 Days #90 tab 10/03/20 onetouch glucometer #1 ea 10/09/20 gabapentin 300 mg capsule 300 mg PO DAILY 90 Days #90 cap 10/15/20 cyanocobalamin (vitamin B-12) 1,000 mcg PO DAILY #90 tab 11/24/20 1,000 mcg tablet aspirin 81 mg tablet,delayed 81 mg PO DAILY #90 tab 11/25/20 release linagliptin 5 mg tablet (Tradjenta) 5 mg PO DAILY #30 tab 12/14/20 lancets 33 gauge (OneTouch Delica #100 ea 03/16/21 Lancets) pen needle, diabetic 31 gauge x #1200 ea 12/23/20 5/16 (BD Ultra-Fine Short Pen Needle) tamsulosin 0.4 mg capsule 0.4 mg PO DAILY #90 cap 01/24/21 blood sugar diagnostic (OneTouch #100 ea 02/11/21 Verio test strips) diabetic shoes #1 ea 03/11/21 omeprazole 20 mg capsule,delayed 20 mg PO BID #180 cap 04/09/21 release empagliflozin 25 mg tablet 25 mg PO QAM #30 tab 04/15/21 (Jardiance) doxycycline hyclate 100 mg tablet 100 mg PO BID #10 tab 05/05/21 fluconazole 200 mg tablet 200 mg PO DAILY #10 tab 05/05/21 (Diflucan) prednisone 20 mg tablet 40 mg PO DAILY #10 tab 05/05/21 DS: Summary Hospital Course Hospital Course: patient presented with diffuse desqamotizing skin rash, worse in armpits and groin and palms. he was not septic. he was seen by ID who recommended diflcuan for 10 days, doxy for 5 days, and prednisone. he should follow up outpaitnet with derm. for his positive occult blood, hgb was stable, he should follow up outpatient. patient appears stable and will be discharged home. Time Spent with Patient Time attestation: Total time spent providing and/or coordinating discharge services: Discharge coordination time: Greater than 30 minutes Quality: Stroke Does the patient have a stroke diagnosis?: No Physical Exam Vital Signs: Vital Signs: Last Vital Signs Temp 98.4 F 05/05/21 11:13 Pulse 81 05/05/21 11:13 Resp 18 05/05/21 11:13 BP 121/65 05/05/21 11:13 Pulse Ox 98 05/05/21 11:13 Body Mass Index 27.1 Const: Other: General: AO X 3, no acute distress Resp: CTA bilateral CVS: S1,S2,RRR GI: soft, non tender, non distended Neuro: motor grossly intact Psych: appropriate affect skin: diffuse rash as noted DS: Data Data Completed and Pending Labs on day of discharge: Laboratory Results - last 24 hr 05/04/21 05/04/21 05/04/21 11:28 12:18 18:16 WBC RBC Hgb Hct MCV MCH MCHC RDW Plt Count MPV Absolute Nucleated RBC Nucleated RBC % (auto) Sodium Potassium Chloride Carbon Dioxide Anion Gap BUN Creatinine Estim Creat Clear Calc Estimated GFR POC Glucose 71 Random Glucose Calcium Urine RBC 5-9 H Urine WBC 0 Ur Squamous Epith Cells NONE Urine Bacteria NONE Stool Occult Blood POSITIVE 05/04/21 05/05/21 05/05/21 21:12 05:58 05:58 WBC 12.3 H RBC 4.54 L Hgb 13.4 L Hct 41.0 L MCV 90.3 MCH 29.5 MCHC 32.7 RDW 12.9 Plt Count 248 MPV 10.3 Absolute Nucleated RBC 0.000 Nucleated RBC % (auto) 0.0 Sodium 136 Potassium 5.4 H Chloride 105 Carbon Dioxide 21 L Anion Gap 15 BUN 24 H Creatinine 1.11 Estim Creat Clear Calc 58.7 Estimated GFR > 60 POC Glucose 264 H Random Glucose 182 H Calcium 9.3 Urine RBC Urine WBC Ur Squamous Epith Cells Urine Bacteria Stool Occult Blood 05/05/21 05/05/21 07:26 11:12 WBC RBC Hgb Hct MCV MCH MCHC RDW Plt Count MPV Absolute Nucleated RBC Nucleated RBC % (auto) Sodium Potassium Chloride Carbon Dioxide Anion Gap BUN Creatinine Estim Creat Clear Calc Estimated GFR POC Glucose 181 H 227 H Random Glucose Calcium Urine RBC Urine WBC Ur Squamous Epith Cells Urine Bacteria Stool Occult Blood Discharge Plan Discharge Patient Disposition: Home, Self-Care Discharge Diagnosis: rash Referrals: Sheba Greco MD [Primary Care Provider] - 1 Week Discharge Medications: New fluconazole [Diflucan] 200 mg tablet 200 mg PO DAILY Qty: 10 RF: 0 doxycycline hyclate 100 mg tablet 100 mg PO BID Qty: 10 RF: 0 prednisone 20 mg tablet 40 mg PO DAILY Qty: 10 RF: 0 Continued pravastatin 20 mg tablet 20 mg PO DAILY 90 Days Qty: 90 RF: 3 (DME) onetouch glucometer See Rx Instructions .Route .MEDSUPPLY Qty: 1 RF: 0 gabapentin 300 mg capsule 300 mg PO DAILY 90 Days Qty: 90 RF: 3 aspirin 81 mg tablet,delayed release (DR/EC) 81 mg PO DAILY Qty: 90 RF: 3 linagliptin [Tradjenta] 5 mg tablet 5 mg PO DAILY Qty: 30 RF: 6 (DME) lancets [OneTouch Delica Lancets] 33 gauge misc See Rx Instructions .ROUTE .MEDSUPPLY Qty: 100 RF: 11 (DME) pen needle, diabetic [BD Ultra-Fine Short Pen Needle] 31 gauge x 5/16 needle See Rx Instructions .ROUTE .MEDSUPPLY Qty: 1200 RF: 0 tamsulosin 0.4 mg capsule 0.4 mg PO DAILY Qty: 90 RF: 1 omeprazole 20 mg capsule,delayed release(DR/EC) 20 mg PO BID Qty: 180 RF: 2 empagliflozin [Jardiance] 25 mg tablet 25 mg PO QAM Qty: 30 RF: 6 lisinopril 20 mg tablet 1 tab PO DAILY RF: 0 fluticasone propion-salmeterol [Wixela Inhub] 500-50 mcg/dose blister with device 1 inh PO BID RF: 0 sodium polystyrene sulfonate Powder 30 g PO MOFR PRN (Reason: high potassium) RF: 0 Lantus Solostar U-100 Insulin 100 unit/mL (3 mL) insulin pen 25 unit subcut QPM RF: 0 Combivent Respimat 20-100 mcg/actuation mist 1 puff inhalation Q6H RF: 0 cyanocobalamin (vitamin B-12) 1,000 mcg tablet 1,000 mcg PO DAILY Qty: 90 RF: 3 (DME) OneTouch Verio test strips Strip See Rx Instructions .ROUTE .MEDSUPPLY Qty: 100 RF: 0 amlodipine 2.5 mg tablet 2.5 mg PO DAILY RF: 0 (DME) diabetic shoes 9 See Rx Instructions .Route .MEDSUPPLY Qty: 1 RF: 0 Discontinued naproxen 500 mg tablet 1 tab PO BID RF: 0 amoxicillin-pot clavulanate 875-125 mg tablet 1 tab PO BID RF: 0 Discharge Orders: Discharge Order (Routine); Ordered 05/05/21 Ordered By: Dick Maxwell Activity on Discharge: As tolerated Stand Alone Forms: Patient Portal Discharge page Care Plan Goals: recovery Health Concerns: rash Plan of Treatment: antifungal, antibiotics, steroids as prescribed, follow up with dermatology Assessment: see above
--- NOTE | 2021-05-05 14:44 | MHC.CM.PN ---
PT DISCHARGED HOME WITH NO SERVICES ORDERED PRIOR TO BEING SEEN BY CM.
== END 2021-05-05 14:07 | disposition home or self-care (01) | DRG 603 ==
LOC: HO.ED 16:52 → HO.EDOVER 18:08 → HO.S3 18:11
PROVIDERS: Physician Assistant Medical; Admitting Provider Student in an Organized Health Care Education/Training Program; Emergency Provider Emergency Medicine; PCP Internal Medicine; Visit Provider Internal Medicine
DX: L03.314 Cellulitis of groin (principal); K21.9 Gastro-esophageal reflux disease without esophagitis; F17.210 Nicotine dependence, cigarettes, uncomplicated; L40.9 Psoriasis, unspecified; E11.9 Type 2 diabetes mellitus without complications; R19.5 Other fecal abnormalities; I10 Essential (primary) hypertension; L73.9 Follicular disorder, unspecified; E78.5 Hyperlipidemia, unspecified; Z20.822 Contact with and (suspected) exposure to COVID-19; Z88.5 Allergy status to narcotic agent; Z79.4 Long term (current) use of insulin; Z79.51 Long term (current) use of inhaled steroids; Z79.52 Long term (current) use of systemic steroids; Z79.82 Long term (current) use of aspirin; Z79.899 Other long term (current) drug therapy
CPT/HCPCS: 36415; 74177; 80048; 80053; 81001; 82272; 82947; 83605; 83735; 85025; 85027; 85652; 86140; 87040; 87635; 93005; 94640; 99218; 99285; J2543; J2920; Q9967

== ENCOUNTER 2021-05-23 09:04 | Emergency (ER) | payer MEDICARE, SELFPAY ==
[2021-05-23 09:11] VITALS: BP 123/70; PULSE 88; RESP 18; TEMP 37.2; O2SAT 96; BMI 26.6
--- NOTE | 2021-05-23 09:27 | ED_ITS ---
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 1 month ago rash was not as bad given cream rash return again this MD complaint: rash Onset (ago): day(s) (4) Location: generalized Severity: moderate Quality: burning and pruritic Pain Consistency: constant Relieving factors: none Exacerbating factors: none Context: other (hx of same in the past) Associated symptoms: denies other symptoms Treatments prior to arrival: OTC topical medication Related Data Home Medications Medication Instructions Recorded Confirmed amlodipine 2.5 mg tablet 2.5 mg PO DAILY 09/07/20 05/04/21 fluticasone 500 mcg-salmeterol 50 1 inh PO BID 05/04/21 05/04/21 mcg/dose blistr powdr for inhalation (Wixela Inhub) insulin glargine 100 unit/mL (3 25 unit SUBCUT QPM 05/04/21 05/04/21 mL) subcutaneous pen (Lantus Solostar U-100 Insulin) ipratropium 20 mcg-albuterol 100 1 puff INHALATION Q6H 05/04/21 05/04/21 mcg/actuation mist for inhalation (Combivent Respimat) lisinopril 20 mg tablet 1 tab PO DAILY 05/04/21 05/04/21 sodium polystyrene sulfonate 30 g PO MOFR PRN 05/04/21 05/04/21 Previous Rx's Medication Instructions Recorded pravastatin 20 mg tablet 20 mg PO DAILY 90 Days #90 tab 10/03/20 onetouch glucometer #1 ea 10/09/20 gabapentin 300 mg capsule 300 mg PO DAILY 90 Days #90 cap 10/15/20 cyanocobalamin (vitamin B-12) 1,000 mcg PO DAILY #90 tab 11/24/20 1,000 mcg tablet aspirin 81 mg tablet,delayed 81 mg PO DAILY #90 tab 11/25/20 release linagliptin 5 mg tablet (Tradjenta) 5 mg PO DAILY #30 tab 12/14/20 lancets 33 gauge (OneTouch Delica #100 ea 12/15/20 Lancets) pen needle, diabetic 31 gauge x #1200 ea 12/23/2002/14 (BD Ultra-Fine Short Pen Needle) tamsulosin 0.4 mg capsule 0.4 mg PO DAILY #90 cap 01/24/21 diabetic shoes #1 ea 03/11/21 omeprazole 20 mg capsule,delayed 20 mg PO BID #180 cap 04/09/21 release empagliflozin 25 mg tablet 25 mg PO QAM #30 tab 04/15/21 (Jardiance) doxycycline hyclate 100 mg tablet 100 mg PO BID #10 tab 05/05/21 fluconazole 200 mg tablet 200 mg PO DAILY #10 tab 05/05/21 (Diflucan) prednisone 20 mg tablet 40 mg PO DAILY #10 tab 05/05/21 blood sugar diagnostic [facility] 05/13/21 Verio test strips) doxycycline hyclate 100 mg capsule 100 mg PO BID 7 Days #14 cap 05/23/21 fluconazole 200 mg tablet 200 mg PO DAILY 7 Days #7 tab 05/23/21 (Diflucan) oxycodone 5 mg tablet 5 mg PO Q6H PRN #12 tab 05/23/21 prednisone 20 mg tablet 40 mg PO DAILY 5 Days #10 tab 05/23/21 Allergies Allergy/AdvReac Type Severity Reaction Status Date / Time doxycycline Allergy Intermediate Itching Verified 05/23/21 09:17 levofloxacin Allergy Intermediate Itching Verified 05/23/21 09:17 metformin Allergy Intermediate diarrhea Verified 05/23/21 09:17 morphine [MORPHINE] Allergy Intermediate ITCHING Verified 05/23/21 09:17 tetracycline Allergy Intermediate Itching Verified 05/23/21 09:17 Cefazolin Sodium Allergy Intermediate Itching Uncoded 03/11/21 10:52 Review of Systems Review of Systems: Constitutional : No Fever, No Chills ENT/Mouth : No sore throat, No Rhinorrhea Eyes: No Eye Pain, No Swelling, No Redness Cardiovascular : No Chest Pain, No SOB Respiratory : No Cough, No Sputum Gastrointestinal : No Nausea, No Vomiting, No Diarrhea, No abdominal Pain Genitourinary : No Dysuria, No Hematuria Musculoskeletal : No joint pain, No Myalgias, No Joint Swelling Skin : pos Skin Lesions, positive skin rash Neuro : No Weakness, No Numbness, No Headache Psych : No Anxiety, No Depression Heme/Lymph: No Bruising, No Bleeding,No Lymphadenopathy Endocrine : No Polyuria, No Polydipsia All other systems reviewed and are negative [facility] Past Medical History Attestation statement: The following information was validated with the patient. Medical History Asthma Diabetes Essential hypertension GERD (gastroesophageal reflux disease) High cholesterol HTN (hypertension) Hypertension IDDM (insulin dependent diabetes mellitus) Left shoulder pain Loss of hearing Non-rheumatic aortic stenosis Normocytic anemia Otitis Type 2 diabetes mellitus with unspecified complications Surgical History No pertinent past surgical history Family History Family History Father No problems noted. Mother No problems noted. Family/Other FH: mental illness Brother In good health Sister In good health Son In good health Daughter In good health Social History Social History Household Members: None Housing: Apartment Do you presently have visiting nurse or other home services: No Alcohol intake: never Patient Tobacco Use Status: Current everyday Tobacco user Tobacco use type: Cigarette Cigarettes Per Day: 10 e-Cigarette/Vaping Use: Never Used Second Hand Smoke Exposure: No Advance Directives: No Advance Directives Information Provided: No service: No Current occupational status: disabled Physical Exam Vital Signs: Vital Signs: Last Vital Signs Temp 98.8 F 05/23/21 10:00 Pulse 82 05/23/21 10:00 Resp 18 05/23/21 10:00 BP 128/68 05/23/21 10:00 Pulse Ox 98 05/23/21 10:00 Body Mass Index 26.6 Appearance: Alert. Oriented X3. No acute distress. Eyes: Pupils equal, round and reactive to light. ENT: Pharynx normal. Neck: Normal inspection. Neck supple. CVS: Normal heart rate and rhythm. Pulses normal. Respiratory: No respiratory distress. Breath sounds normal. Abdomen: Soft and nontender. Skin: Skin warm and dry. on feet and hands desquamating rash noted, on axilla, back, groin, rectum raised patchy plaque like areas - no drainage, no warmth, no surrounding erythema to suggest cellulitis Extremities: No lower extremity edema. No calf ttp Neuro: Oriented X 3. No motor deficit. No sensory deficit. Course Course Course Narrative: has had chronically elevated WBC count in past can be treated as outpatient at this time MDM - Skin/Abscess/Foreign Bdy MDM Narrative Medical decision making narrative: 70 yo male with DM, hx of tinea and psoriasis comes in with recurrrent desquamating rash no signs of infection, has done well in past with steroids, doxy and diflucan. Has appointment with dermatology 06/02. Will obtain basic labs start on medications and instruct him to follow up with Dermatology Lab Data Result diagrams: 05/23/21 10:21 05/23/21 10:21 Labs: Lab Results 05/23/21 05/23/21 Range/Units 10:21 10:21 WBC 15.1 H (4.8-10.8) X10*3/uL RBC 4.60 (4.60-5.80) X10*6/uL Hgb 13.6 L (14.0-18.0) g/dl Hct 41.7 L (42-52) % MCV 90.7 (80-98) fL MCH 29.6 (27.0-33.0) pg MCHC 32.6 (31.0-36.0) g/dl RDW 13.2 (11.0-16.0) % Plt Count 258 (160-400) X10*3/uL MPV 10.0 (9.4-12.4) fL Immature Gran % (Auto) 0.6 H (0.0-0.4) % Neut % (Auto) 82.3 H (45-73) % Lymph % (Auto) 5.3 L (20-40) % [place] % (Auto) 5.4 (2-11) % Eos % (Auto) 6.3 H (0-4) % Baso % (Auto) 0.1 (0-2) % Lymph # (Auto) 0.8 L (1.2-4.9) X10*3/uL [place] # (Auto) 0.8 (0.1-1.2) X10*3/uL Eos # (Auto) 1.0 H (0.0-0.4) X10*3/uL Baso # (Auto) 0.0 (0.0-0.2) X10*3/uL Abs Immat Gran (auto) 0.09 H (0.00-0.03) X10*3/uL Absolute Neuts (auto) 12.5 H (2.0-8.3) X10*3/uL Absolute Nucleated RBC 0.000 (0.0-0.012) X10*3/uL Nucleated RBC % (auto) 0.0 (0.0-0.2) /100WBC Sodium 136 (135-145) mmol/L Potassium 5.1 (3.3-5.1) mmol/L Chloride 106 (96-108) mmol/L Carbon Dioxide 18 L (22-29) mmol/L Anion Gap 17 (12-20) BUN 24 H (9-16) mg/dL Creatinine 1.18 (0.5-1.4) mg/dL Estim Creat Clear Calc 55.2 Estimated GFR > 60 Random Glucose 243 H (60-115) mg/dL Calcium 9.7 (8.4-10.2) mg/dL Total Bilirubin 0.4 (0.0-1.0) mg/dL Direct Bilirubin 0.2 (0.0-0.5) mg/dL AST 22 (5-37) U/L ALT 25 (0-40) U/L Alkaline Phosphatase 71 (39-117) U/L Total Protein 7.4 (6.5-8.0) g/dL Albumin 4.3 (3.5-5.0) g/dL Discharge Plan Discharge Clinical Impression: Rash and nonspecific skin eruption Patient Disposition: Home, Self-Care Instructions: Acute Rash (ED) Additional Instructions: return to ED for any worsening symptoms or concerns please go to your dermatology appointment Prescriptions: New doxycycline hyclate 100 mg capsule 100 mg PO BID 7 Days Qty: 14 RF: 0 prednisone 20 mg tablet 40 mg PO DAILY 5 Days Qty: 10 RF: 0 fluconazole [Diflucan] 200 mg tablet 200 mg PO DAILY 7 Days Qty: 7 RF: 0 oxycodone 5 mg tablet 5 mg PO Q6H PRN (Reason: pain) Qty: 12 RF: 0 No Action pravastatin 20 mg tablet 20 mg PO DAILY 90 Days Qty: 90 RF: 3 (DME) onetouch glucometer See Rx Instructions .Route .MEDSUPPLY Qty: 1 RF: 0 gabapentin 300 mg capsule 300 mg PO DAILY 90 Days Qty: 90 RF: 3 aspirin 81 mg tablet,delayed release (DR/EC) 81 mg PO DAILY Qty: 90 RF: 3 linagliptin [Tradjenta] 5 mg tablet 5 mg PO DAILY Qty: 30 RF: 6 (DME) lancets [EyeonixTouch DelTyba Lancets] 33 gauge misc See Rx Instructions .ROUTE .MEDSUPPLY Qty: 100 RF: 11 (DME) pen needle, diabetic [BD Ultra-Fine Short Pen Needle] 31 gauge x 5/16 needle See Rx Instructions .ROUTE .MEDSUPPLY Qty: 1200 RF: 0 tamsulosin 0.4 mg capsule 0.4 mg PO DAILY Qty: 90 RF: 1 omeprazole 20 mg capsule,delayed release(DR/EC) 20 mg PO BID Qty: 180 RF: 2 empagliflozin [Jardiance] 25 mg tablet 25 mg PO QAM Qty: 30 RF: 6 (DME) OneTouch Verio test strips Strip See Rx Instructions .ROUTE .MEDSUPPLY Qty: 100 RF: 11 lisinopril 20 mg tablet 1 tab PO DAILY RF: 0 fluticasone propion-salmeterol [Wixela Inhub] 500-50 mcg/dose blister with device 1 inh PO BID RF: 0 sodium polystyrene sulfonate Powder 30 g PO MOFR PRN (Reason: high potassium) RF: 0 Lantus Solostar U-100 Insulin 100 unit/mL (3 mL) insulin pen 25 unit subcut QPM RF: 0 Combivent Respimat 20-100 mcg/actuation mist 1 puff inhalation Q6H RF: 0 fluconazole [Diflucan] 200 mg tablet 200 mg PO DAILY Qty: 10 RF: 0 doxycycline hyclate 100 mg tablet 100 mg PO BID Qty: 10 RF: 0 prednisone 20 mg tablet 40 mg PO DAILY Qty: 10 RF: 0 cyanocobalamin (vitamin B-12) 1,000 mcg tablet 1,000 mcg PO DAILY Qty: 90 RF: 3 amlodipine 2.5 mg tablet 2.5 mg PO DAILY RF: 0 (DME) diabetic shoes 9 See Rx Instructions .Route .MEDSUPPLY Qty: 1 RF: 0 Interventions: ED Discharge Assessment Last Done: 05/23/21 11:09 Discharge Date/Time: 05/23/21 11:10 Print Language: Cook Islander
[2021-05-23] MEDS: oxyCODONE HCl Immed Release 5 MG TABLET PO (09:47)
[2021-05-23] MEDS: Fluconazole 150 MG TABLET 200 MG PO (09:47)
[2021-05-23] MEDS: predniSONE 20 MG TABLET 40 MG PO (09:48)
[2021-05-23 10:00] VITALS: BP 128/68; PULSE 82; RESP 18; TEMP 37.1; O2SAT 98
[2021-05-23 10:29] LABS: MANUAL DIFF FLAG NO
[2021-05-23 10:30] LABS: Basophils Percent Auto 0.1 % (0-2); Eosinophils Percent Auto 6.3 % (0-4); Hematocrit 41.7 % (42-52); Hemoglobin 13.6 g/dl (14.0-18.0); Imm Gran Abs Auto 0.09 X10*3/uL (0.00-0.03); Imm Gran Pct Auto 0.6 % (0.0-0.4); Lymphocytes Absolute Auto 0.8 X10*3/uL (1.2-4.9); Lymphocytes Percent Auto 5.3 % (20-40); Mean Corpuscular HGB Conc 32.6 g/dl (31.0-36.0); Mean Corpuscular Hemoglobin 29.6 pg (27.0-33.0); Mean Corpuscular Volume 90.7 fL (80-98); Monocytes Absolute Auto 0.8 X10*3/uL (0.1-1.2); Monocytes Percent Auto 5.4 % (2-11); Neutrophils Absolute Auto 12.5 X10*3/uL (2.0-8.3); Neutrophils Percent Auto 82.3 % (45-73); Platelet Count 258 X10*3/uL (160-400); Red Cell Distribution Width 13.2 % (11.0-16.0); White Blood Count 15.1 X10*3/uL (4.8-10.8)
[2021-05-23 10:57] LABS: Alanine Aminotransferase 25 U/L (0-40); Albumin Level 4.3 g/dL (3.5-5.0); Alkaline Phosphatase 71 U/L (39-117); Anion Gap 17 (12-20); Aspartate Amino Transferase 22 U/L (5-37); Bilirubin Direct 0.2 mg/dL (0.0-0.5); Bilirubin Total 0.4 mg/dL (0.0-1.0); Blood Urea Nitrogen 24 mg/dL (9-16); Calcium 9.7 mg/dL (8.4-10.2); Carbon Dioxide 18 mmol/L (22-29); Chloride 106 mmol/L (96-108); Creatinine Clr Calc Pharmacy 55.2; Estimated Glomerular Filt Rate > 60; Glucose Random 243 mg/dL (60-115); Potassium 5.1 mmol/L (3.3-5.1); Sodium 136 mmol/L (135-145); Total Protein 7.4 g/dL (6.5-8.0)
== END 2021-05-23 11:10 | disposition home or self-care (01) ==
PROVIDERS: Emergency Provider Emergency Medicine; PCP Internal Medicine
DX: L50.0 Allergic urticaria (principal); F17.210 Nicotine dependence, cigarettes, uncomplicated; Z71.6 Tobacco abuse counseling; Z79.899 Other long term (current) drug therapy
CPT/HCPCS: 36415; 80048; 80076; 85025; 99284

== ENCOUNTER → 2021-08-04 08:28 | Outpatient (BNVA) | payer MEDICARE, SELFPAY | PROVIDERS: PCP Internal Medicine; Referring Provider Internal Medicine; Visit Provider Internal Medicine | DX: I35.0 Nonrheumatic aortic (valve) stenosis (principal); I10 Essential (primary) hypertension; E11.8 Type 2 diabetes mellitus with unspecified complications; R07.2 Precordial pain | CPT/HCPCS: 93005; 99212 ==

== ENCOUNTER 2021-09-06 16:10 | Outpatient (REF) | payer MEDICARE, SELFPAY ==
[2021-09-06 17:21] LABS: Anion Gap 12 (12-20); Blood Urea Nitrogen 26 mg/dL (9-16); Calcium 9.1 mg/dL (8.4-10.2); Carbon Dioxide 22 mmol/L (22-29); Chloride 111 mmol/L (96-108); Estimated Glomerular Filt Rate 54; Glucose Random 127 mg/dL (60-115); Potassium 5.1 mmol/L (3.3-5.1); Sodium 140 mmol/L (135-145)
== END 2021-09-06 16:11 | disposition home or self-care (01) ==
LOC: HO.LAB 16:10
PROVIDERS: PCP Internal Medicine; Visit Provider Internal Medicine Hypertension Specialist
DX: I12.9 Hypertensive chronic kidney disease with stage 1 through stage 4 chronic kidney disease, or unspecified chronic kidney disease (principal); N18.9 Chronic kidney disease, unspecified
CPT/HCPCS: 36415; 80048

== ENCOUNTER 2021-11-04 10:04 | Outpatient (REF) | payer MEDICARE, SELFPAY ==
--- NOTE | ~2021-11-04 | CT_ITS ---
EXAMINATION: CT CHEST SCREENING CLINICAL INFORMATION: 60 pack year history. Current smoker. COMPARISON: September 30, 2019 TECHNIQUE: Multidetector volumetric CT imaging of the chest is performed without contrast using low dose technique. Additional 2D coronal and sagittal reformatted images and axial 3D maximum intensity projection (MIP) images are generated on the CT workstation. This CT examination was performed using dose optimization techniques as appropriate, variously including the following: *Automated exposure control *Adjustment of mA and/or kV according to patient size (this includes techniques or standardized protocols for targeted exams where dose is matched to indication/reason for exam; i.e. extremities or head) *Use of iterative reconstruction technique DLP: 59 mGy-cm FINDINGS: LUNGS: Central airways are patent. There is mild central bronchial wall thickening present. No bronchiectasis. There is minimal nonspecific ground glass opacity seen within the right upper lobe. No significant interstitial or airspace disease appreciated. No significant emphysematous change identified. There are numerous peripheral sub-4 mm densities present similar to previous study of September 30, 2019 with a few small calcified granulomas identified. No suspicious lung nodule identified and no endobronchial lesion is seen. MEDIASTINUM: Heart normal size. Aortic valve calcification seen as well as coronary artery calcification. No pericardial effusion. No thoracic aortic aneurysm. No mediastinal or hilar lymphadenopathy. PLEURA: There is no pleural effusion. No pleural mass or thickening. AXILLA: No lymphadenopathy. UPPER ABDOMEN: Unremarkable OSSEOUS STRUCTURES: Unremarkable. CT/CT lung screening IMPRESSION: 1. Old granulomatous disease. 2. No new suspicious chest nodules identified. 3. Stable appearance compared to study of September 30, 2019. ASSESSMENT: Lung-RADS category 2: Benign RECOMMENDATION: Routine annual low-dose CT screening in 12 months.
== END 2021-11-04 10:05 | disposition home or self-care (01) ==
LOC: HO.CT 10:04
PROVIDERS: Visit Provider Physician Assistant Medical
DX: Z12.2 Encounter for screening for malignant neoplasm of respiratory organs (principal); F17.210 Nicotine dependence, cigarettes, uncomplicated
CPT/HCPCS: 71271

== ENCOUNTER → 2021-11-24 11:06 | Outpatient (BNVA) | payer MEDICARE, SELFPAY | PROVIDERS: PCP Internal Medicine; Visit Provider Physician Assistant | DX: M75.51 Bursitis of right shoulder (principal) | CPT/HCPCS: 20610; 99202; J1020 ==

== ENCOUNTER 2021-12-14 09:18 | Outpatient (REF) | payer MEDICARE, SELFPAY ==
[2021-12-14 10:33] LABS: Hematocrit 47.1 % (42.0-52.0); Mean Corpuscular HGB Conc 31.8 g/dl (31.0-36.0); Mean Corpuscular Hemoglobin 29.7 pg (27.0-33.0); Mean Corpuscular Volume 93.3 fL (80.0-98.0); Mean Platelet Volume 10.3 fL (9.4-12.4); Platelet Count 250 X10*3/uL (160-400); Red Blood Count 5.05 X10*6/uL (4.60-5.80); Red Cell Distribution Width 13.7 % (11.0-16.0); White Blood Count 11.3 X10*3/uL (4.8-10.8)
[2021-12-14 11:14] LABS: Anion Gap 15 (12-20); Blood Urea Nitrogen 39 mg/dL (9-16); Calcium 9.8 mg/dL (8.4-10.2); Carbon Dioxide 20 mmol/L (22-29); Chloride 105 mmol/L (96-108); Estimated Glomerular Filt Rate 48; Glucose Random 144 mg/dL (60-115); Potassium 5.4 mmol/L (3.3-5.1); Sodium 135 mmol/L (135-145)
[2021-12-14 11:27] LABS: Creatinine Urine 93.56 mg/dL; Protein/Creatinine Ratio, Ur 0.18 (<0.2); Total Protein Urine Random 17 mg/dL (<12)
== END 2021-12-14 09:19 | disposition home or self-care (01) ==
LOC: HO.LAB 09:18
PROVIDERS: PCP Internal Medicine; Visit Provider Internal Medicine Hypertension Specialist
DX: N18.31 Chronic kidney disease, stage 3a (principal)
CPT/HCPCS: 36415; 80048; 84156; 85027

== ENCOUNTER 2021-12-21 10:15 | Emergency (ER) | payer MEDICARE, SELFPAY ==
[2021-12-21 11:12] VITALS: BP 138/64; PULSE 93; RESP 18; TEMP 36.6; O2SAT 97; BMI 27.8
--- NOTE | 2021-12-21 11:44 | ED.GENADULT ---
HPI - General Adult General Chief complaint: General Medical Stated complaint: Rash Time Seen by Provider: 12/21/21 11:30 Source: patient Mode of arrival: ambulatory Limitations: no limitations History of Present Illness HPI narrative: 71-year-old male who presents emergency department for evaluation of a rash to his forearms bilaterally x2 weeks. Patient states that the rash started approximately 2 weeks ago, he states that the rash is warm to the touch, the rash is itchy and painful. He does have a history psoriasis but he states that this rash is different than his usual psoriasis. He is not aware of any specific contacts that may have caused a rash. He has not done any outside yd work. He denied fever, chills, fatigue, weakness, chest pain, shortness of breath. Related Data Home Medications Medication Instructions Recorded Confirmed amlodipine 2.5 mg tablet 2.5 mg PO DAILY 09/07/20 11/24/21 insulin glargine 100 unit/mL (3 25 unit SUBCUT QPM 05/04/21 11/24/21 mL) subcutaneous pen (Lantus Solostar U-100 Insulin) ipratropium 20 mcg-albuterol 100 1 puff INHALATION Q6H 05/04/21 11/24/21 mcg/actuation mist for inhalation (Combivent Respimat) sodium polystyrene sulfonate 30 g PO MOFR PRN 05/04/21 11/24/21 apremilast 30 mg tablet (Otezla) 30 mg PO BID 10/26/21 11/24/21 Previous Rx's Medication Instructions Recorded [employer]iva Bi[employer]aceutical[employer]ouch glucometer #1 ea 10/09/20 gabapentin 300 mg capsule 300 mg PO DAILY 90 Days #90 cap 10/15/20 cyanocobalamin (vitamin B-12) 1,000 mcg PO DAILY #90 tab 11/24/20 1,000 mcg tablet aspirin 81 mg tablet,delayed 81 mg PO DAILY #90 tab 11/25/20 release lancets 33 gauge ([facility] [employer] Delica #100 ea 12/15/20 Lancets) pen needle, diabetic 31 gauge x #1200 ea 12/23/2002/14 (BD Ultra-Fine Short Pen Needle) diabetic shoes #1 ea 03/11/21 blood sugar diagnostic ([facility] #100 ea 05/13/21 Verio test strips) tamsulosin 0.4 mg capsule 0.4 mg PO DAILY #90 cap 06/14/21 linagliptin 5 mg tablet (Tradjenta) 5 mg PO DAILY #30 tab 06/26/21 fluticasone 500 mcg-salmeterol 50 1 inh PO BID 90 Days #180 ea 08/23/21 mcg/dose blistr powdr for inhalation (Wixela Inhub) lisinopril 20 mg tablet 20 mg PO DAILY 90 Days #90 tab 09/04/21 pravastatin 20 mg tablet 20 mg PO DAILY 90 Days #90 tab 10/01/21 empagliflozin 25 mg tablet 25 mg PO QAM #30 tab 12/05/21 (Jardiance) omeprazole 20 mg capsule,delayed 20 mg PO BID #180 cap 12/20/21 release triamcinolone acetonide 0.1 % 1 appl TOPICAL BID 7 Days #30 g 12/21/21 topical ointment Allergies Allergy/AdvReac Type Severity Reaction Status Date / Time doxycycline Allergy Intermediate Itching Verified 11/24/21 11:09 levofloxacin Allergy Intermediate Itching Verified 11/24/21 11:09 metformin Allergy Intermediate diarrhea Verified 11/24/21 11:09 morphine [MORPHINE] Allergy Intermediate ITCHING Verified 11/24/21 11:09 tetracycline Allergy Intermediate Itching Verified 11/24/21 11:09 cefazolin AdvReac Mild Diarrhea, Verified 11/24/21 11:09 itchy Review of Systems Review of Systems: Yes all other systems are reviewed and are negative [facility] Past Medical History Medical History Asthma Benign essential hypertension CKD stage 3 due to type 2 diabetes mellitus Diabetes Diabetes mellitus, with long-term current use of insulin Essential hypertension GERD (gastroesophageal reflux disease) High cholesterol HTN (hypertension) Hypertension IDDM (insulin dependent diabetes mellitus) Left shoulder pain Loss of hearing Non-rheumatic aortic stenosis Normocytic anemia Otitis Pure hypercholesterolemia Right shoulder pain Type 2 diabetes mellitus with unspecified complications Surgical History No pertinent past surgical history Family History Family History Father No problems noted. Mother No problems noted. Family/Other FH: mental illness Brother In good health Sister In good health Son In good health Daughter In good health Other Mental health disorder Social History Social History Household Members: None Housing: Apartment Do you presently have visiting nurse or other home services: No Alcohol intake: never Patient Tobacco Use Status: Current everyday Tobacco user Tobacco use type: Cigarette Cigarettes Per Day: 10 e-Cigarette/Vaping Use: Never Used Second Hand Smoke Exposure: No Advance Directives: No Advance Directives Information Provided: No service: No Current occupational status: disabled Physical Exam ED Vital Signs: Vital Signs - 24 hr 12/21/21 11:12 Temperature 98 F Pulse Rate 93 Respiratory Rate 18 Blood Pressure 138/64 Pulse Oximetry 97 BMI result Body Mass Index 27.8 Const General: cooperative, comfortable, well developed, alert, awake and Physically active Nutritional Appearance: average body habitus Orientation/consciousness: oriented to person and oriented to place Limitations: no limitations HENMT Head: Yes normocephalic and Yes atraumatic Eyes General: appearance normal, both eyes and all related structures Resp Effort & Inspection: normal respiratory effort Skin Other: The patient has a an oval-shaped erythematous, raised, rash to both forearms, the rash is symmetric bilaterally, the rash is slightly warm to the touch and does not gaby with pressure Neuro General: oriented to person and oriented to place Cognition (Neuro): normal cognition Psych Appearance: grossly normal Speech and movement: Normal speech and movement present Affect: normal affect Course Course Course Narrative: 71-year-old male with a history of psoriasis who presents emergency department for evaluation of erythematous, warm, painful, pruritic symmetric rash to both forearms x2 weeks. Patient's examination findings are consistent with a contact dermatitis with unclear trigger. I did discuss this with the patient. The patient was started on triamcinolone ointment 0.1% twice a day for 1 week. 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 Discharge Plan Discharge Clinical Impression: Contact dermatitis Qualifiers: Contact dermatitis type: unspecified Contact dermatitis trigger: unspecified trigger Qualified Code(s): L25.9 - Unspecified contact dermatitis, unspecified cause Patient Disposition: Home, Self-Care Instructions: Contact Dermatitis (ED) Additional Instructions: The rash on your arm is consistent with a contact dermatitis (something got on your skin that caused your immune system to react causing the redness, swelling and pain). I am prescribing a topical steroid called triamcinolone 0.1% ointment, apply this to your arms twice a day for 1 week. Take Tylenol (acetaminophen) 500 mg pills, 2 pills every 4 to 6 hours as needed for pain. Follow-up with your doctor in 2 days. Please return to the emergency department if your symptoms get worse or if you develop any symptoms that are concerning to you. Prescriptions: New triamcinolone acetonide 0.1 % ointment 1 appl topical BID 7 Days Qty: 30 0RF No Action (DME) onetouch glucometer See Rx Instructions .Route .MEDSUPPLY Qty: 1 0RF Rx Instructions: As directed gabapentin 300 mg capsule 300 mg PO DAILY 90 Days Qty: 90 3RF aspirin 81 mg tablet,delayed release (DR/EC) 81 mg PO DAILY Qty: 90 3RF (DME) lancets [OneTouch Delica Lancets] 33 gauge misc See Rx Instructions .ROUTE .MEDSUPPLY Qty: 100 11RF Rx Instructions: Check by finger stick route 4 times every day (DME) pen needle, diabetic [BD Ultra-Fine Short Pen Needle] 31 gauge x 5/16 needle See Rx Instructions .ROUTE .MEDSUPPLY Qty: 1200 0RF Rx Instructions: As directed daily with Lantus (DME) OneTouch Verio test strips Strip See Rx Instructions .ROUTE .MEDSUPPLY Qty: 100 11RF Rx Instructions: Use 3 times a day to test BG daily for 30 days Tradjenta 5 mg tablet 5 mg PO DAILY Qty: 30 6RF fluticasone propion-salmeterol [Wixela Inhub] 500-50 mcg/dose blister with device 1 inh PO BID 90 Days Qty: 180 3RF lisinopril 20 mg tablet 20 mg PO DAILY 90 Days Qty: 90 1RF pravastatin 20 mg tablet 20 mg PO DAILY 90 Days Qty: 90 3RF Jardiance 25 mg tablet 25 mg PO QAM Qty: 30 6RF omeprazole 20 mg capsule,delayed release(DR/EC) 20 mg PO BID Qty: 180 2RF sodium polystyrene sulfonate Powder 30 g PO MOFR PRN (Reason: high potassium) 0RF Lantus Solostar U-100 Insulin 100 unit/mL (3 mL) insulin pen 25 unit subcut QPM 0RF Combivent Respimat 20-100 mcg/actuation mist 1 puff inhalation Q6H 0RF cyanocobalamin (vitamin B-12) 1,000 mcg tablet 1,000 mcg PO DAILY Qty: 90 3RF amlodipine 2.5 mg tablet 2.5 mg PO DAILY 0RF tamsulosin 0.4 mg capsule 0.4 mg PO DAILY Qty: 90 1RF (DME) diabetic shoes 9 See Rx Instructions .Route .MEDSUPPLY Qty: 1 0RF Rx Instructions: As directed Otezla 30 mg tablet 30 mg PO BID 0RF
== END 2021-12-21 12:02 | disposition home or self-care (01) ==
PROVIDERS: Emergency Provider Emergency Medicine Emergency Medical Services; PCP Internal Medicine
DX: L25.9 Unspecified contact dermatitis, unspecified cause (principal); E11.22 Type 2 diabetes mellitus with diabetic chronic kidney disease; I12.9 Hypertensive chronic kidney disease with stage 1 through stage 4 chronic kidney disease, or unspecified chronic kidney disease; N18.30 Chronic kidney disease, stage 3 unspecified; F17.200 Nicotine dependence, unspecified, uncomplicated; Z79.4 Long term (current) use of insulin
CPT/HCPCS: 99283

== ENCOUNTER 2022-01-07 06:47 | Outpatient (REF) | payer MEDICARE, SELFPAY ==
[2022-01-07 07:50] LABS: Alanine Aminotransferase 21 U/L (0-40); Albumin Level 4.2 g/dL (3.5-5.0); Alkaline Phosphatase 51 U/L (39-117); Anion Gap 12 (12-20); Aspartate Amino Transferase 19 U/L (5-37); Bilirubin Direct 0.2 mg/dL (0.0-0.5); Bilirubin Total 0.4 mg/dL (0.0-1.0); Blood Urea Nitrogen 25 mg/dL (9-16); Calcium 9.6 mg/dL (8.4-10.2); Carbon Dioxide 23 mmol/L (22-29); Chloride 108 mmol/L (96-108); Estimated Glomerular Filt Rate 57; Glucose Random 88 mg/dL (60-115); Potassium 4.7 mmol/L (3.3-5.1); Sodium 138 mmol/L (135-145); Total Protein 7.1 g/dL (6.5-8.0)
== END 2022-01-07 06:48 | disposition home or self-care (01) ==
LOC: HO.LAB 06:47
PROVIDERS: PCP Internal Medicine; Visit Provider Dermatology
DX: L30.9 Dermatitis, unspecified (principal)
CPT/HCPCS: 36415; 80053; 82248

== ENCOUNTER 2022-02-15 09:22 | Emergency (ER) | payer MEDICARE, SELFPAY ==
--- NOTE | ~2022-02-15 | XR_ITS ---
EXAMINATION: XR RIBS, LEFT CLINICAL INFORMATION: Left-sided rib pain following a fall. COMPARISON: Most recent CT chest dated 11/04/2021. TECHNIQUE: PA view of the chest as well as 3 views of the left ribs. FINDINGS: No airspace consolidation. No pleural effusion or pneumothorax. Unremarkable cardiomediastinal silhouette. Right upper quadrant surgical clips. No displaced fracture. No lytic or blastic osseous lesion. No abnormal soft tissue calcification. XR/XR ribs LT min 3V w CXR1V IMPRESSION: No displaced fracture.
[2022-02-15 09:47] VITALS: BP 137/67; PULSE 84; RESP 18; TEMP 35.9; O2SAT 96; BMI 27.3
--- NOTE | 2022-02-15 11:10 | ED_ITS ---
HPI - Fall General Chief Complaint: Fall Stated Complaint: fell inj l rib area Time Seen by Provider: 02/15/22 10:37 Source: patient Limitations: no limitations History of Present Illness HPI Narrative: Pt fell on Monday he is c/o left chest wall pain,denies neck pain head injury,drove himself to the ED complaint: fall Onset (ago): day(s) (4) Fall from: standing Place fall occurred: home Loss of consciousness: none Prolonged down time: no Context: tripped/slipped Related Data Home Medications Medication Instructions Recorded Confirmed amlodipine 2.5 mg tablet 2.5 mg PO DAILY 09/07/20 02/09/22 ipratropium 20 mcg-albuterol 100 1 puff INHALATION Q6H 05/04/21 02/09/22 mcg/actuation mist for inhalation (Combivent Respimat) sodium polystyrene sulfonate 30 g PO MOFR PRN 05/04/21 02/09/22 apremilast 30 mg tablet (Otezla) 30 mg PO BID 10/26/21 02/09/22 Previous Rx's Medication Instructions Recorded onetouch glucometer #1 ea 10/09/20 gabapentin 300 mg capsule 300 mg PO DAILY 90 Days #90 cap 10/15/20 cyanocobalamin (vitamin B-12) 1,000 mcg PO DAILY #90 tab 11/24/20 1,000 mcg tablet lancets 33 gauge (OneTouch Delica #100 ea 12/15/20 Lancets) pen needle, diabetic 31 gauge x #1200 ea 12/23/2002/14 (BD Ultra-Fine Short Pen Needle) blood sugar diagnostic (OneTouch #100 ea 05/13/21 Verio test strips) tamsulosin 0.4 mg capsule 0.4 mg PO DAILY #90 cap 06/14/21 fluticasone 500 mcg-salmeterol 50 1 inh PO BID 90 Days #180 ea 08/23/21 mcg/dose blistr powdr for inhalation (Wixela Inhub) lisinopril 20 mg tablet 20 mg PO DAILY 90 Days #90 tab 09/04/21 pravastatin 20 mg tablet 20 mg PO DAILY 90 Days #90 tab 10/01/21 empagliflozin 25 mg tablet 25 mg PO QAM #30 tab 12/05/21 (Jardiance) omeprazole 20 mg capsule,delayed 20 mg PO BID #180 cap 12/20/21 release triamcinolone acetonide 0.1 % 1 appl TOPICAL BID 7 Days #30 g 12/21/21 topical ointment aspirin 81 mg tablet,delayed 81 mg PO DAILY #90 tab 12/26/21 release insulin glargine 100 unit/mL (3 25 unit (0.25 mL) SUBCUT QPM 90 12/30/21 mL) subcutaneous pen (Lantus Days #22.5 ml Solostar U-100 Insulin) linagliptin 5 mg tablet (Tradjenta) 5 mg PO DAILY #30 tab 01/02/22 diabetic shoes and inserts #1 ea 01/10/22 nebulizers (AeroEclipse II #1 ea 01/10/22 Nebulizer) clotrimazole-betamethasone 1 1 appl TOPICAL BID #15 g 02/09/22 %-0.05 % topical cream lidocaine 4 % topical patch 1 patch TOPICAL DAILY PRN #15 ea 02/09/22 (Aspercreme (lidocaine)) oxycodone 5 mg tablet 5 mg PO Q6H PRN #15 tab 02/15/22 Allergies Allergy/AdvReac Type Severity Reaction Status Date / Time doxycycline Allergy Intermediate Itching Verified 02/15/22 09:47 levofloxacin Allergy Intermediate Itching Verified 02/15/22 09:47 metformin Allergy Intermediate diarrhea Verified 02/15/22 09:47 morphine [MORPHINE] Allergy Intermediate ITCHING Verified 02/15/22 09:47 tetracycline Allergy Intermediate Itching Verified 02/15/22 09:47 cefazolin AdvReac Mild Diarrhea, Verified 02/15/22 09:47 itchy Review of Systems Review of Systems: Yes all other systems are reviewed and are negative Constitutional: Constitutional: Reports no additional constitutional complain ts Eyes: Eyes: Reports no additional eye complaints ENT: Reports system reviewed and no additional complaints, except as documented Cardiovascular: Cardiovascular: Reports no additional cardiovascular complaints Gastrointestinal: Gastrointestinal: Reports no additional gastrointestinal complaints PMFSH Past Medical History Medical History Asthma Benign essential hypertension CKD stage 3 due to type 2 diabetes mellitus Diabetes Diabetes mellitus, with long-term current use of insulin Essential hypertension GERD (gastroesophageal reflux disease) High cholesterol HTN (hypertension) Hypertension IDDM (insulin dependent diabetes mellitus) Left shoulder pain Loss of hearing Mild persistent asthma Non-rheumatic aortic stenosis Normocytic anemia Otitis Pure hypercholesterolemia Right shoulder pain Type 2 diabetes mellitus with unspecified complications Surgical History No pertinent past surgical history Family History Family History Father No problems noted. Mother No problems noted. Family/Other FH: mental illness Brother In good health Sister In good health Son In good health Daughter In good health Other Mental health disorder Social History Social History Household Members: None Housing: Apartment Do you presently have visiting nurse or other home services: No Alcohol intake: never Patient Tobacco Use Status: Current everyday Tobacco user Tobacco use type: Cigarette Cigarettes Per Day: 10 e-Cigarette/Vaping Use: Never Used Second Hand Smoke Exposure: No Advance Directives: No Advance Directives Information Provided: Yes service: No Current occupational status: disabled Cognitive needs: No Hearing needs: No Vision needs: Yes Physical Exam Vital Signs: Vital Signs: Last Vital Signs Temp 96.7 F L 02/15/22 09:47 Pulse 84 02/15/22 09:47 Resp 18 02/15/22 09:47 BP 137/67 02/15/22 09:47 Pulse Ox 96 02/15/22 09:47 BMI result Body Mass Index 27.3 Const: General: cooperative, comfortable and no acute distress Nutritional Appearance: average body habitus Orientation/consciousness: patient oriented x3 HEENT: Head: Yes normal to inspection Ears: external ears normal General nose exam: Normal external nose present Face and sinus: Yes normal facial exam Mouth: Normal oral and palatal mucosa present Throat: Yes posterior oropharynx normal Neck: Neck: Yes normal visual inspection and Yes full ROM Thyroid: Thyroid normal Carotids: normal carotid upstroke Chest: Chest palpation & inspection: normal inspection of the chest Resp: Effort & Inspection: normal respiratory effort Auscultation: clear to auscultation bilaterally Percussion: other (chest wall tenderness left) Cardio: Jugular venous distension: no JVD Rate: regular rate Rhythm: regular rhythm GI: Inspection: Yes normal to inspection Palpation (GI): Soft to palpation, not firm, nontender and no guarding Percussion: Yes normal to percussion Auscultation: normal bowel sounds : General: Yes no CVA tenderness Back/Spine/Pelvis: Back: no CVA tenderness Neuro: General: patient oriented x3 Course Reevaluation(s) Reevaluation #1: Pt has no ribs fx , Sat OK 96% will d/c home MDM - Fall ECG Data Interpretation: CLINICAL INFORMATION: Left-sided rib pain following a fall. COMPARISON: Most recent CT chest dated 11/04/2021. TECHNIQUE: PA view of the chest as well as 3 views of the left ribs. FINDINGS: No airspace consolidation. No pleural effusion or pneumothorax. Unremarkable cardiomediastinal silhouette. Right upper quadrant surgical clips. No displaced fracture. No lytic or blastic osseous lesion. No abnormal soft tissue calcification. XR/XR ribs LT min 3V w CXR1V IMPRESSION: No displaced fracture. Dictated By: Rich Discharge Plan Discharge Clinical Impression: Chest wall pain Patient Disposition: Home, Self-Care Instructions: Chest Wall Pain (ED) Prescriptions: New oxycodone 5 mg tablet 5 mg PO Q6H PRN (Reason: pain) Qty: 15 0RF Rx Instructions: partial filing upon pt request No Action (DME) onetouch glucometer See Rx Instructions .Route .MEDSUPPLY Qty: 1 0RF Rx Instructions: As directed gabapentin 300 mg capsule 300 mg PO DAILY 90 Days Qty: 90 3RF (DME) lancets [OneTouch Delica Lancets] 33 gauge misc See Rx Instructions .ROUTE .MEDSUPPLY Qty: 100 11RF Rx Instructions: Check by finger stick route 4 times every day (DME) pen needle, diabetic [BD Ultra-Fine Short Pen Needle] 31 gauge x 5/16 needle See Rx Instructions .ROUTE .MEDSUPPLY Qty: 1200 0RF Rx Instructions: As directed daily with Lantus (DME) OneTouch Verio test strips Strip See Rx Instructions .ROUTE .MEDSUPPLY Qty: 100 11RF Rx Instructions: Use 3 times a day to test BG daily for 30 days fluticasone propion-salmeterol [Wixela Inhub] 500-50 mcg/dose blister with device 1 inh PO BID 90 Days Qty: 180 3RF lisinopril 20 mg tablet 20 mg PO DAILY 90 Days Qty: 90 1RF pravastatin 20 mg tablet 20 mg PO DAILY 90 Days Qty: 90 3RF Jardiance 25 mg tablet 25 mg PO QAM Qty: 30 6RF omeprazole 20 mg capsule,delayed release(DR/EC) 20 mg PO BID Qty: 180 2RF aspirin 81 mg tablet,delayed release (DR/EC) 81 mg PO DAILY Qty: 90 3RF Lantus Solostar U-100 Insulin 100 unit/mL (3 mL) insulin pen 25 unit subcut QPM 90 Days Qty: 22.5 3RF Tradjenta 5 mg tablet 5 mg PO DAILY Qty: 30 6RF (DME) AeroEclipse II Nebulizer Misc See Rx Instructions .Route Qty: 1 0RF Rx Instructions: As directed (DME) diabetic shoes and inserts 9 See Rx Instructions .Route .MEDSUPPLY Qty: 1 0RF Rx Instructions: As directed sodium polystyrene sulfonate Powder 30 g PO MOFR PRN (Reason: high potassium) 0RF Combivent Respimat 20-100 mcg/actuation mist 1 puff inhalation Q6H 0RF cyanocobalamin (vitamin B-12) 1,000 mcg tablet 1,000 mcg PO DAILY Qty: 90 3RF triamcinolone acetonide 0.1 % ointment 1 appl topical BID 7 Days Qty: 30 0RF amlodipine 2.5 mg tablet 2.5 mg PO DAILY 0RF tamsulosin 0.4 mg capsule 0.4 mg PO DAILY Qty: 90 1RF Otezla 30 mg tablet 30 mg PO BID 0RF clotrimazole-betamethasone 1-0.05 % cream 1 appl topical BID Qty: 15 0RF lidocaine [Aspercreme (lidocaine HCl)] 4 % adhesive patch,medicated 1 patch topical DAILY PRN (Reason: pain) Qty: 15 1RF Referrals: Sheba Greco MD [Primary Care Provider] - Interventions: ED Discharge Assessment Last Done: 02/15/22 11:58 Discharge Date/Time: 02/15/22 11:59
== END 2022-02-15 11:59 | disposition home or self-care (01) ==
PROVIDERS: Emergency Provider Emergency Medicine; PCP Internal Medicine
DX: R07.89 Other chest pain (principal); R07.81 Pleurodynia; F17.210 Nicotine dependence, cigarettes, uncomplicated; Z71.6 Tobacco abuse counseling; Z79.899 Other long term (current) drug therapy
CPT/HCPCS: 71101; 99283

== ENCOUNTER 2022-02-20 09:27 | Emergency (ER) | payer MEDICARE, SELFPAY ==
--- NOTE | ~2022-02-20 | CT_ITS ---
EXAMINATION: CT CHEST, ABDOMEN AND PELVIS WITH CONTRAST CLINICAL INFORMATION: Left-sided chest wall pain after fall. Left abdominal pain. COMPARISON: November 04, 2021 and May 04, 2021 TECHNIQUE: Multidetector volumetric imaging was performed from the thoracic inlet through the pubic symphysis following administration of oral and intravenous contrast of 100 mL Ultravist-300 intravenous contrast. Sagittal and coronal reformatted images were obtained on the technologist workstation. This CT examination was performed using dose optimization techniques as appropriate, variously including the following: *Automated exposure control *Adjustment of mA and/or kV according to patient size (this includes techniques or standardized protocols for targeted exams where dose is matched to indication/reason for exam; i.e. extremities or head) *Use of iterative reconstruction technique DLP: 922 mGy-cm. FINDINGS: CHEST: Lungs: Central airways are patent. There is some bilateral central bronchial wall thickening present. No bronchiectasis. No confluent parenchymal disease. There is a small region of groundglass opacity seen adjacent to the minor fissure within the right upper lobe. There are a few sub-4 mm densities present with no suspicious nodule being seen. Mediastinum: Visualized thyroid gland appears unremarkable. Heart normal size. Coronary artery calcifications present. No pericardial effusion. No thoracic aortic aneurysm. No mediastinal or hilar lymphadenopathy. Pleura: There is no significant effusion. No pleural mass or thickening. Chest Wall/Axilla: No lymphadenopathy identified. No acute displaced rib fracture is appreciated. ABDOMEN/PELVIS: Liver, Gallbladder, Biliary Tree: The liver is normal in size, shape, and attenuation. No focal hepatic lesion or biliary ductal dilatation is present. No evidence of laceration or subcapsular fluid collection. Status post cholecystectomy. Pancreas: Unremarkable. No peripancreatic inflammatory change. Spleen: Unremarkable. No evidence of laceration or subcapsular fluid collection. Adrenal Glands: Unremarkable. Kidneys and Ureters: The kidneys are normal in size, shape, and attenuation. No hydronephrosis or hydroureter or calculi seen. There is mild bilateral perinephric stranding present. Bladder: Unremarkable. Gastrointestinal Tract: No dilated loops of large or small bowel are evident. No free air or free fluid is seen. There is diverticulosis seen throughout the colon without evidence of acute diverticulitis. The appendix is visualized and appears unremarkable. Abdominal Wall: There is a small umbilical fat-containing hernia present. Lymph Nodes: No lymphadenopathy seen. Vascular: Unremarkable. Pelvic Viscera: No abnormal mass seen. Penile implant in place with a right-sided reservoir. Osseous Structures: No suspicious destructive bony lesions identified. There is degenerative disc disease seen at the L5-S1 level. Sacroiliac joint ankylosis present. CT/CT abdomen pelvis wo con IMPRESSION: No acute displaced rib fracture appreciated. No evidence of solid organ injury. Colonic diverticulosis without evidence of acute diverticulitis.
[2022-02-20 10:00] VITALS: BP 125/57; PULSE 78; RESP 16; TEMP 36.1; O2SAT 96; BMI 28.1
--- NOTE | 2022-02-20 13:51 | ED_ITS ---
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 here with reports of left sided chest wall pain/ abdominal pain x 9 days. Patient denies any nausea, vomiting, diarrhea, constipation, urinary symptoms, fevers, chills. Patient reports he has had a dry cough. When he coughs he feels that the pain is worse. He denies any shortness of breath, leg swelling, leg pain, chest pain. Patient was seen here on February 15 for similar complaint. He had a chest x-ray which showed no acute finding. He was prescribed oxycodone for pain. Patient tells me he does have some relief when taking oxycodone however he ran out of the medication. Related Data Home Medications Medication Instructions Recorded Confirmed amlodipine 2.5 mg tablet 2.5 mg PO DAILY 09/07/20 02/09/22 ipratropium 20 mcg-albuterol 100 1 puff INHALATION Q6H 05/04/21 02/09/22 mcg/actuation mist for inhalation (Combivent Respimat) sodium polystyrene sulfonate 30 g PO MOFR PRN 05/04/21 02/09/22 apremilast 30 mg tablet (Otezla) 30 mg PO BID 10/26/21 02/09/22 Previous Rx's Medication Instructions Recorded onetouch glucometer #1 ea 10/09/20 gabapentin 300 mg capsule 300 mg PO DAILY 90 Days #90 cap 10/15/20 cyanocobalamin (vitamin B-12) 1,000 mcg PO DAILY #90 tab 11/24/20 1,000 mcg tablet lancets 33 gauge (OneTouch Delica #100 ea 12/15/20 Lancets) blood sugar diagnostic (ArcivrTouch #100 ea 05/13/21 Verio test strips) tamsulosin 0.4 mg capsule 0.4 mg PO DAILY #90 cap 06/14/21 fluticasone 500 mcg-salmeterol 50 1 inh PO BID 90 Days #180 ea 08/23/21 mcg/dose blistr powdr for inhalation (Wixela Inhub) lisinopril 20 mg tablet 20 mg PO DAILY 90 Days #90 tab 09/04/21 pravastatin 20 mg tablet 20 mg PO DAILY 90 Days #90 tab 10/01/21 empagliflozin 25 mg tablet 25 mg PO QAM #30 tab 12/05/21 (Jardiance) omeprazole 20 mg capsule,delayed 20 mg PO BID #180 cap 12/20/21 release triamcinolone acetonide 0.1 % 1 appl TOPICAL BID 7 Days #30 g 12/21/21 topical ointment aspirin 81 mg tablet,delayed 81 mg PO DAILY #90 tab 12/26/21 release insulin glargine 100 unit/mL (3 25 unit (0.25 mL) SUBCUT QPM 90 12/30/21 mL) subcutaneous pen ( Days #22.5 ml Solostar U-100 Insulin) linagliptin 5 mg tablet (Tradjenta) 5 mg PO DAILY #30 tab 01/02/22 diabetic shoes and inserts #1 ea 01/10/22 nebulizers (AeroEclipse II #1 ea 01/10/22 Nebulizer) clotrimazole-betamethasone 1 1 appl TOPICAL BID #15 g 02/09/22 %-0.05 % topical cream lidocaine 4 % topical patch 1 patch TOPICAL DAILY PRN #15 ea 02/09/22 (Aspercreme (lidocaine)) oxycodone 5 mg tablet 5 mg PO Q6H PRN #15 tab 02/15/22 pen needle, diabetic 31 gauge x #1200 ea 02/15/22 5/16 (BD Ultra-Fine Short Pen Needle) acetaminophen 325 mg capsule 650 mg PO Q4H PRN #30 cap 02/20/22 (Tylenol) cyclobenzaprine 10 mg tablet 10 mg PO TID PRN #10 tab 02/20/22 lidocaine 5 % topical patch 1 patch TOPICAL DAILY #15 ea 02/20/22 (Lidoderm) Allergies Allergy/AdvReac Type Severity Reaction Status Date / Time doxycycline Allergy Intermediate Itching Verified 02/15/22 09:47 levofloxacin Allergy Intermediate Itching Verified 02/15/22 09:47 metformin Allergy Intermediate diarrhea Verified 02/15/22 09:47 morphine [MORPHINE] Allergy Intermediate ITCHING Verified 02/15/22 09:47 tetracycline Allergy Intermediate Itching Verified 02/15/22 09:47 cefazolin AdvReac Mild Diarrhea, Verified 02/15/22 09:47 itchy Review of Systems Review of Systems Yes all other systems are reviewed and are negative Constitutional: Reports no additional constitutional complaints, Denies body ache(s), Denies chills, Denies fever(s), Denies headache(s) and Denies weakness Eyes: Reports no additional eye complaints and Denies change in vision Reports system reviewed and no additional complaints, except as documented, Denies dizziness, Denies headache(s), Denies nasal congestion, Denies nasal disc harge and Denies neck pain Cardiovascular: Reports no additional cardiovascular complaints, Reports chest pain, Denies leg edema and Denies dyspnea Respiratory: Reports no additional respiratory complaints, Reports cough and Denies dyspnea Gastrointestinal: Reports no additional gastrointestinal complaints, Reports abdominal pain, Denies diarrhea, Denies nausea and Denies vomiting Genitourinary: Denies urinary incontinence Musculoskeletal: Reports no additional musculoskeletal complaints, Denies back pain, Denies arthralgias, Denies joint swelling, Denies neck pain, Denies numbness and Denies tingling Skin/Breast: Reports system reviewed and no additional complaints, except as docu and Denies rash Reports system reviewed and no additional complaints, except as documented, Denies dizziness, Denies headache(s), Denies numbness, Denies tingling and Denies weakness PMFSH Past Medical History Attestation statement: The following information was validated with the patient. Source: old records reviewed and nursing notes reviewed Medical History Asthma Benign essential hypertension CKD stage 3 due to type 2 diabetes mellitus Diabetes Diabetes mellitus, with long-term current use of insulin Essential hypertension GERD (gastroesophageal reflux disease) High cholesterol HTN (hypertension) Hypertension IDDM (insulin dependent diabetes mellitus) Left shoulder pain Loss of hearing Mild persistent asthma Non-rheumatic aortic stenosis Normocytic anemia Otitis Pure hypercholesterolemia Right shoulder pain Type 2 diabetes mellitus with unspecified complications Surgical History No pertinent past surgical history Family History Family History Father No problems noted. Mother No problems noted. Family/Other FH: mental illness Brother In good health Sister In good health Son In good health Daughter In good health Other Mental health disorder Social History Social History Household Members: None Housing: Apartment Do you presently have visiting nurse or other home services: No Alcohol intake: never Patient Tobacco Use Status: Current everyday Tobacco user Tobacco use type: Cigarette Cigarettes Per Day: 10 e-Cigarette/Vaping Use: Never Used Second Hand Smoke Exposure: No Advance Directives: No Advance Directives Information Provided: No service: No Current occupational status: disabled Cognitive needs: No Hearing needs: No Vision needs: Yes Physical Exam ED Vital Signs: Vital Signs - 24 hr 02/20/22 10:00 02/20/22 16:39 Temperature 97.0 F 98 F Pulse Rate 78 70 Respiratory Rate 16 18 Blood Pressure 125/57 L 127/66 Pulse Oximetry 96 98 BMI result Body Mass Index 28.1 Const General: cooperative, healthy appearing, comfortable and no acute distress Orientation/consciousness: patient oriented x3 Limitations: no limitations HENMT Head: Yes normal to inspection Ears: hearing grossly normal bilaterally General nose exam: Normal external nose present Face and sinus: Yes normal facial exam Mouth: Normal oral and palatal mucosa present Throat: Yes posterior oropharynx normal, Yes tonsils normal and Yes uvula midline Eyes General: appearance normal, both eyes and all related structures Pupils: Equal, round and reactive pupils present Neck Neck: Yes normal visual inspection, Yes full ROM and Yes no lymphadenopathy Chest Chest palpation & inspection: normal inspection of the chest and tenderness (left chest wall tender to palp) Resp Effort & Inspection: normal respiratory effort Auscultation: clear to auscultation bilaterally Cardio Rate: regular rate Rhythm: regular rhythm Peripheral pulses: Peripheral pulses 2+ throughout GI Inspection: Yes normal to inspection Palpation (GI): Soft to palpation and Tenderness to palpation present (GI) (LUQ) General: Yes no CVA tenderness Back/Spine/Pelvis Back: no CVA tenderness Skin General skin exam: no rashes or lesions noted Neuro General: patient oriented x3 and moves all extremities Cranial nerves: Yes CN's II-XII intact bilaterally, Yes Equal, round and reactive pupils present, Yes Bilaterally intact EOM present, Yes Nystagmus not present, Yes Normal facial strength present and Yes Midline tongue present Cognition (Neuro): normal cognition Gait exam (Neuro): Normal gait present Motor exam (neuro): 5/5 motor strength present throughout Sensory Exam: Normal double simultaneous stimulation for sensation Extrem General: Yes normal to inspection, Yes no pedal edema and Yes no calf tenderness Course Course Course Narrative: 9 days of left sided chest wall/abdominal pain w/ dry cough and no other complaints. Will check labs, UA, anticipate will need imaging. Reevaluation(s) Reevaluation #1: Labs unremarkable. Will check CT chest and abdomen Time: 14:55 Reevaluation #2: CT unremarkable. Likely chest wall strain. Reviewed findings with the patient. Recommended follow-up with primary care doctor in 1 week for persistent s ymptoms. Reviewed worrisome signs and symptoms when to return to the emergency department. Comfortable discharge home. Time: 16:30 MDM - Abdominal Pain MDM Narrative Medical decision making narrative: pe-less likely with negative D-dimer, no clinical findings concerning for DVT, no hypoxia, no tachycardia, no tachypnea. pna, pancreatitis-less likely with normal lipase Medical Records Attestation: I reviewed the patient's medical records. Lab Data Attestation: I reviewed the patient's lab results. Result diagrams: 02/20/22 13:50 02/20/22 13:50 Labs: Lab Results 02/20/22 02/20/22 02/20/22 Range/Units 13:50 13:50 13:50 WBC 10.5 (4.8-10.8) X10*3/uL RBC 4.82 (4.60-5.80) X10*6/uL Hgb 14.3 (14.0-18.0) g/dl Hct 44.3 (42.0-52.0) % MCV 91.9 (80.0-98.0) fL MCH 29.7 (27.0-33.0) pg MCHC 32.3 (31.0-36.0) g/dl RDW 13.2 (11.0-16.0) % Plt Count 238 (160-400) X10*3/uL MPV 9.8 (9.4-12.4) fL Immature Gran % (Auto) 0.6 H (0.0-0.4) % Neut % (Auto) 57.0 (45-73) % Lymph % (Auto) 21.2 (20-40) % [place] % (Auto) 8.8 (2-11) % Eos % (Auto) 11.9 H (0-4) % Baso % (Auto) 0.5 (0-2) % Lymph # (Auto) 2.2 (1.2-4.9) X10*3/uL [place] # (Auto) 0.9 (0.1-1.2) X10*3/uL Eos # (Auto) 1.3 H (0.0-0.4) X10*3/uL Baso # (Auto) 0.1 (0.0-0.2) X10*3/uL Abs Immat Gran (auto) 0.06 H (0.00-0.03) X10*3/uL Absolute Neuts (auto) 6.0 (2.0-8.3) x10*3/uL Absolute Nucleated RBC 0.000 (0.0-0.012) X10*3/uL Nucleated RBC % (auto) 0.0 (0.0-0.2) /100WBC PT 11.2 (9.9-13.0) SEC INR 1.0 (0.9-1.1) D-Dimer High Sensitivty 182 NG/ML Sodium 136 (135-145) mmol/L Potassium 4.8 (3.3-5.1) mmol/L Chloride 106 (96-108) mmol/L Carbon Dioxide 24 (22-29) mmol/L Anion Gap 11 L (12-20) BUN 21 H (9-16) mg/dL Creatinine 1.40 (0.5-1.4) mg/dL Estim Creat Clear Calc 50.2 Estimated GFR 50 Random Glucose 163 H D (60-115) mg/dL Calcium 9.5 (8.4-10.2) mg/dL Magnesium 2.3 (1.6-2.6) mg/dL Total Bilirubin 0.3 (0.0-1.0) mg/dL Direct Bilirubin < 0.2 (0.0-0.5) mg/dL AST 18 (5-37) U/L ALT 22 (0-40) U/L Alkaline Phosphatase 61 (39-117) U/L Troponin I High Sens (<3.5-35.0) ng/L Total Protein 7.6 (6.5-8.0) g/dL Albumin 4.3 (3.5-5.0) g/dL Lipase 61 (8-78) U/L 02/20/22 Range/Units 13:50 WBC (4.8-10.8) X10*3/uL RBC (4.60-5.80) X10*6/uL Hgb (14.0-18.0) g/dl Hct (42.0-52.0) % MCV (80.0-98.0) fL MCH (27.0-33.0) pg MCHC (31.0-36.0) g/dl RDW (11.0-16.0) % Plt Count (160-400) X10*3/uL MPV (9.4-12.4) fL Immature Gran % (Auto) (0.0-0.4) % Neut % (Auto) (45-73) % Lymph % (Auto) (20-40) % [place] % (Auto) (2-11) % Eos % (Auto) (0-4) % Baso % (Auto) (0-2) % Lymph # (Auto) (1.2-4.9) X10*3/uL [place] # (Auto) (0.1-1.2) X10*3/uL Eos # (Auto) (0.0-0.4) X10*3/uL Baso # (Auto) (0.0-0.2) X10*3/uL Abs Immat Gran (auto) (0.00-0.03) X10*3/uL Absolute Neuts (auto) (2.0-8.3) x10*3/uL Absolute Nucleated RBC (0.0-0.012) X10*3/uL Nucleated RBC % (auto) (0.0-0.2) /100WBC PT (9.9-13.0) SEC INR (0.9-1.1) D-Dimer High Sensitivty NG/ML Sodium (135-145) mmol/L Potassium (3.3-5.1) mmol/L Chloride (96-108) mmol/L Carbon Dioxide (22-29) mmol/L Anion Gap (12-20) BUN (9-16) mg/dL Creatinine (0.5-1.4) mg/dL Estim Creat Clear Calc Estimated GFR Random Glucose (60-115) mg/dL Calcium (8.4-10.2) mg/dL Magnesium (1.6-2.6) mg/dL Total Bilirubin (0.0-1.0) mg/dL Direct Bilirubin (0.0-0.5) mg/dL AST (5-37) U/L ALT (0-40) U/L Alkaline Phosphatase (39-117) U/L Troponin I High Sens 4.3 (<3.5-35.0) ng/L Total Protein (6.5-8.0) g/dL Albumin (3.5-5.0) g/dL Lipase (8-78) U/L Imaging Data CT scan - abdomen: Attestation: I personally reviewed and interpreted this imaging study as follows: Radiologist's impression: [place] [id number] CT Scan Report Signed Patient: Jonathon Harper MR#: [id number] : 1950 Acct:[id number] Age/Sex: 71 / M ADM Date: 02/20/22 Loc: HO.ED Attending Dr: Ordering Physician: Sara Haines NP Date of Service: 02/20/22 Procedure(s): CT chest wo con Accession Number(s): [id number] cc: Sara Haines NP~ EXAMINATION: CT CHEST, ABDOMEN AND PELVIS WITH CONTRAST CLINICAL INFORMATION: Left-sided chest wall pain after fall. Left abdominal pain. COMPARISON: November 04, 2021 and May 04, 2021 TECHNIQUE: Multidetector volumetric imaging was performed from the thoracic inlet through the pubic symphysis following administration of oral and intravenous contrast of 100 mL Ultravist-300 intravenous contrast. Sagittal and coronal reformatted images were obtained on the technologist workstation. This CT examination was performed using dose optimization techniques as appropriate, variously including the following: *Automated exposure control *Adjustment of mA and/or kV according to patient size (this includes techniques or standardized protocols for targeted exams where dose is matched to indication/reason for exam; i.e. extremities or head) *Use of iterative reconstruction technique DLP: 922 mGy-cm. FINDINGS: CHEST: Lungs: Central airways are patent. There is some bilateral central bronchial wall thickening present. No bronchiectasis. No confluent parenchymal disease. There is a small region of groundglass opacity seen adjacent to the minor fissure within the right upper lobe. There are a few sub-4 mm densities present with no suspicious nodule being seen. Mediastinum: Visualized thyroid gland appears unremarkable. Heart normal size. Coronary artery calcifications present. No pericardial effusion. No thoracic aortic aneurysm. No mediastinal or hilar lymphadenopathy. Pleura: There is no significant effusion. No pleural mass or thickening. Chest Wall/Axilla: No lymphadenopathy identified. No acute displaced rib fracture is appreciated. ABDOMEN/PELVIS: Liver, Gallbladder, Biliary Tree: The liver is normal in size, shape, and attenuation. No focal hepatic lesion or biliary ductal dilatation is present. No evidence of laceration or subcapsular fluid collection. Status post cholecystectomy. Pancreas: Unremarkable. No peripancreatic inflammatory change. Spleen: Unremarkable. No evidence of laceration or subcapsular fluid collection. Adrenal Glands: Unremarkable. Kidneys and Ureters: The kidneys are normal in size, shape, and attenuation. No hydronephrosis or hydroureter or calculi seen. There is mild bilateral perinephric stranding present. Bladder: Unremarkable. Gastrointestinal Tract: No dilated loops of large or small bowel are evident. No free air or free fluid is seen. There is diverticulosis seen throughout the colon without evidence of acute diverticulitis. The appendix is visualized and appears unremarkable. Abdominal Wall: There is a small umbilical fat-containing hernia present.? Lymph Nodes: No lymphadenopathy seen. Vascular: Unremarkable. Pelvic Viscera: No abnormal mass seen. Penile implant in place with a right-sided reservoir. Osseous Structures: No suspicious destructive bony lesions identified. There is degenerative disc disease seen at the L5-S1 level. Sacroiliac joint ankylosis present.? CT scan - chest: Attestation: I personally reviewed and interpreted this imaging study as follows: Radiologist's impression: [address] [address] [address] Scan Report Signed Patient: Jonathon Harper MR#: [id number] : 1950 Acct:[id number] Age/Sex: 71 / M ADM Date: 02/20/22 Loc: HO.ED Attending Dr: Ordering Physician: Sara Haines NP Date of Service: 02/20/22 Procedure(s): CT chest wo con Accession Number(s): [id number] cc: Sara Haines NP~ EXAMINATION: CT CHEST, ABDOMEN AND PELVIS WITH CONTRAST CLINICAL INFORMATION: Left-sided chest wall pain after fall. Left abdominal pain. COMPARISON: November 04, 2021 and May 04, 2021 TECHNIQUE: Multidetector volumetric imaging was performed from the thoracic inlet through the pubic symphysis following administration of oral and intravenous contrast of 100 mL Ultravist-300 intravenous contrast. Sagittal and coronal reformatted images were obtained on the technologist workstation. This CT examination was performed using dose optimization techniques as appropriate, variously including the following: *Automated exposure control *Adjustment of mA and/or kV according to patient size (this includes techniques or standardized protocols for targeted exams where dose is matched to indication/reason for exam; i.e. extremities or head) *Use of iterative reconstruction technique DLP: 922 mGy-cm. FINDINGS: CHEST: Lungs: Central airways are patent. There is some bilateral central bronchial wall thickening present. No bronchiectasis. No confluent parenchymal disease. There is a small region of groundglass opacity seen adjacent to the minor fissure within the right upper lobe. There are a few sub-4 mm densities present with no suspicious nodule being seen. Mediastinum: Visualized thyroid gland appears unremarkable. Heart normal size. Coronary artery calcifications present. No pericardial effusion. No thoracic aortic aneurysm. No mediastinal or hilar lymphadenopathy. Pleura: There is no significant effusion. No pleural mass or thickening. Chest Wall/Axilla: No lymphadenopathy identified. No acute displaced rib fracture is appreciated. Discharge Plan Discharge Clinical Impression: Chest wall muscle strain Patient Disposition: Home, Self-Care Instructions: Muscle Strain (DC), Chest Wall Pain (ED) Additional Instructions: Lab work, urine testing and CTs are looking unremarkable. Follow-up with primary care doctor for any persistent symptoms Prescriptions: New lidocaine [Lidoderm] 5 % adhesive patch,medicated 1 patch topical DAILY Qty: 15 0RF Rx Instructions: leave on most painful area for up to 12 hrs cyclobenzaprine 10 mg tablet 10 mg PO TID PRN (Reason: muscle spasm) Qty: 10 0RF acetaminophen [Tylenol] 325 mg capsule 650 mg PO Q4H PRN (Reason: pain) Qty: 30 0RF No Action (DME) onetouch glucometer See Rx Instructions .Route .MEDSUPPLY Qty: 1 0RF Rx Instructions: As directed gabapentin 300 mg capsule 300 mg PO DAILY 90 Days Qty: 90 3RF (DME) lancets [OneTouch Delica Lancets] 33 gauge misc See Rx Instructions .ROUTE .MEDSUPPLY Qty: 100 11RF Rx Instructions: Check by finger stick route 4 times every day (DME) OneTouch Verio test strips Strip See Rx Instructions .ROUTE .MEDSUPPLY Qty: 100 11RF Rx Instructions: Use 3 times a day to test BG daily for 30 days fluticasone propion-salmeterol [Wixela Inhub] 500-50 mcg/dose blister with device 1 inh PO BID 90 Days Qty: 180 3RF lisinopril 20 mg tablet 20 mg PO DAILY 90 Days Qty: 90 1RF pravastatin 20 mg tablet 20 mg PO DAILY 90 Days Qty: 90 3RF Jardiance 25 mg tablet 25 mg PO QAM Qty: 30 6RF omeprazole 20 mg capsule,delayed release(DR/EC) 20 mg PO BID Qty: 180 2RF aspirin 81 mg tablet,delayed release (DR/EC) 81 mg PO DAILY Qty: 90 3RF Lantus Solostar U-100 Insulin 100 unit/mL (3 mL) insulin pen 25 unit subcut QPM 90 Days Qty: 22.5 3RF Tradjenta 5 mg tablet 5 mg PO DAILY Qty: 30 6RF (DME) AeroEclipse II Nebulizer [facility] [place] See Rx Instructions .Route Qty: 1 0RF Rx Instructions: As directed (DME) diabetic shoes and inserts 9 See Rx Instructions .Route .MEDSUPPLY Qty: 1 0RF Rx Instructions: As directed (DME) pen needle, diabetic [BD Ultra-Fine Short Pen Needle] 31 gauge x 5/16 needle See Rx Instructions .ROUTE .MEDSUPPLY Qty: 1200 0RF Rx Instructions: As directed daily with Lantus sodium polystyrene sulfonate Powder 30 g PO MOFR PRN (Reason: high potassium) 0RF Combivent Respimat 20-100 mcg/actuation mist 1 puff inhalation Q6H 0RF cyanocobalamin (vitamin B-12) 1,000 mcg tablet 1,000 mcg PO DAILY Qty: 90 3RF triamcinolone acetonide 0.1 % ointment 1 appl topical BID 7 Days Qty: 30 0RF oxycodone 5 mg tablet 5 mg PO Q6H PRN (Reason: pain) Qty: 15 0RF Rx Instructions: partial filing upon pt request amlodipine 2.5 mg tablet 2.5 mg PO DAILY 0RF tamsulosin 0.4 mg capsule 0.4 mg PO DAILY Qty: 90 1RF Otezla 30 mg tablet 30 mg PO BID 0RF clotrimazole-betamethasone 1-0.05 % cream 1 appl topical BID Qty: 15 0RF lidocaine [Aspercreme (lidocaine HCl)] 4 % adhesive patch,medicated 1 patch topical DAILY PRN (Reason: pain) Qty: 15 1RF Referrals: Sheba Greco MD [Primary Care Provider] - 5 days Interventions: ED Discharge Assessment Last Done: 02/20/22 16:39 Discharge Date/Time: 02/20/22 16:40 Print Language: Cuban
[2022-02-20 13:53] LABS: MANUAL DIFF FLAG NO
[2022-02-20 13:54] LABS: Basophils Absolute Auto 0.1 X10*3/uL (0.0-0.2); Basophils Percent Auto 0.5 % (0-2); Eosinophils Absolute Auto 1.3 X10*3/uL (0.0-0.4); Eosinophils Percent Auto 11.9 % (0-4); Hematocrit 44.3 % (42.0-52.0); Hemoglobin 14.3 g/dl (14.0-18.0); Imm Gran Abs Auto 0.06 X10*3/uL (0.00-0.03); Imm Gran Pct Auto 0.6 % (0.0-0.4); Lymphocytes Absolute Auto 2.2 X10*3/uL (1.2-4.9); Lymphocytes Percent Auto 21.2 % (20-40); Mean Corpuscular HGB Conc 32.3 g/dl (31.0-36.0); Mean Corpuscular Hemoglobin 29.7 pg (27.0-33.0); Mean Corpuscular Volume 91.9 fL (80.0-98.0); Mean Platelet Volume 9.8 fL (9.4-12.4); Monocytes Absolute Auto 0.9 X10*3/uL (0.1-1.2); Monocytes Percent Auto 8.8 % (2-11); Platelet Count 238 X10*3/uL (160-400); Red Blood Count 4.82 X10*6/uL (4.60-5.80); Red Cell Distribution Width 13.2 % (11.0-16.0); White Blood Count 10.5 X10*3/uL (4.8-10.8)
[2022-02-20 14:03] LABS: Prothrombin Time 11.2 SEC (9.9-13.0)
[2022-02-20 14:11] LABS: Alanine Aminotransferase 22 U/L (0-40); Albumin Level 4.3 g/dL (3.5-5.0); Alkaline Phosphatase 61 U/L (39-117); Anion Gap 11 (12-20); Aspartate Amino Transferase 18 U/L (5-37); Bilirubin Direct < 0.2 mg/dL (0.0-0.5); Bilirubin Total 0.3 mg/dL (0.0-1.0); Blood Urea Nitrogen 21 mg/dL (9-16); Calcium 9.5 mg/dL (8.4-10.2); Carbon Dioxide 24 mmol/L (22-29); Chloride 106 mmol/L (96-108); Creatinine Clr Calc Pharmacy 50.2; Estimated Glomerular Filt Rate 50; Glucose Random 163 mg/dL (60-115); Lipase 61 U/L (8-78); Magnesium 2.3 mg/dL (1.6-2.6); Potassium 4.8 mmol/L (3.3-5.1); Sodium 136 mmol/L (135-145); Total Protein 7.6 g/dL (6.5-8.0)
[2022-02-20 14:13] LABS: Troponin-I High Sensitivity 4.3 ng/L (<3.5-35.0)
[2022-02-20 14:46] LABS: D Dimer High Sensitivity 182 NG/ML
[2022-02-20 16:39] VITALS: BP 127/66; PULSE 70; RESP 18; TEMP 36.6; O2SAT 98
== END 2022-02-20 16:40 | disposition home or self-care (01) ==
PROVIDERS: Nurse Practitioner Family; Emergency Provider Emergency Medicine; PCP Internal Medicine
DX: S29.011A Strain of muscle and tendon of front wall of thorax, initial encounter (principal); E11.22 Type 2 diabetes mellitus with diabetic chronic kidney disease; I12.9 Hypertensive chronic kidney disease with stage 1 through stage 4 chronic kidney disease, or unspecified chronic kidney disease; N18.30 Chronic kidney disease, stage 3 unspecified; J45.30 Mild persistent asthma, uncomplicated; F17.210 Nicotine dependence, cigarettes, uncomplicated; Z79.4 Long term (current) use of insulin; X58.XXXA Exposure to other specified factors, initial encounter; Y93.9 Activity, unspecified; Y92.9 Unspecified place or not applicable; Y99.9 Unspecified external cause status
CPT/HCPCS: 36415; 71250; 74176; 80048; 80076; 83690; 83735; 84484; 85025; 85379; 85610; 99282; 99284

== ENCOUNTER → 2022-03-10 12:36 | Outpatient (BNVA) | payer MEDICARE, SELFPAY | PROVIDERS: PCP Internal Medicine; Visit Provider Physician Assistant | DX: M19.011 Primary osteoarthritis, right shoulder (principal) | CPT/HCPCS: 20600; 20610; 99212; J1020 ==

== ENCOUNTER → 2022-06-24 13:31 | Outpatient (REF) | payer OTHER, SELFPAY ==
--- NOTE | 2022-06-24 13:34 | CA_ITS ---
Transthoracic Echocardiogram Patient (Last, First, Middle): Jonathon Harper, Gender: Male Date of : 1950 Age: 71 Procedure Date: 06/24/2022 Procedure Type: Transthoracic Echocardiogram Location: OP Height: 170.18 cm Weight: 77.11 kg BSA: 1.89 m2 Heart Rate: 86 bpm BP: 120 / 70 mmHg Property Master: [id number] Referring MD: Ted Josue MD Symptoms: I35.0 - Nonrheumatic aortic (valve) stenosis Study Quality: Adequate ECG Rhythm: Sinus Conclusions: - The left ventricular systolic function is normal. The calculated ejection fraction is 63% by biplane method. - There is mild aortic valve stenosis. Findings Left Ventricle Normal left ventricular cavity size. There is mildly increased left ventricular wall thickness. The left ventricular systolic function is normal. The calculated ejection fraction is 63% by biplane method. There is no evidence of regional wall motion abnormalities. Cannot exclude basal inferior hypokinesis. Right Ventricle Normal right ventricular cavity size and systolic function. Atria Both atria are normal in size. Aortic Valve There is moderate calcification of the aortic valve. There is mild aortic valve stenosis. The mean gradient is 12 mmHg. The aortic valve area is 1.74 cm2. There is no aortic valve regurgitation. Mitral Valve The mitral valve appears normal. There is mild mitral annular calcification. There is no mitral valve regurgitation. There is no mitral valve stenosis. Pulmonic Valve The pulmonic valve is likely normal. Tricuspid Valve There is trace tricuspid valve regurgitation. There is no evidence of pulmonary hypertension. Great Vessels The aortic annulus, sinuses of valsalva, and asc aorta are normal in size. Venous The inferior vena cava is normal in size and collapses greater than 50% with inspiration. Pericardium/Pleural There is no evidence of pericardial effusion. Prior Study Comparison No significant change compared to prior study dated: 12/28/2020. Measurements 2D Linear Measurements IVSd: 1.15 0.6-0.9/0.6-1.0 cm LVIDd: 3.60 3.9-5.3/4.2-5.9 cm LVIDd Index: 1.90 2.4-3.2/2.2-3.1 cm/m2 LVIDs: 1.92 2.0-3.6 cm LVPWd: 1.15 0.7-1.1 cm LA Diam: 2.80 2.7-3.8/3.0-4.0 cm LAIDs Index: 1.48 1.5-2.3 cm/m2 LV Mass: 165.07 67-162/88-224 g LV Mass Index: 87.34 43-95/49-115 g/m2 LVOT Diam: 2.00 3.0+(-)1.3 cm 2D Systolic Function EF 4C: 69.00 >55% EF 2C: 53.90 >55% EF BiP: 62.70 >55% Mitral Valve E'Lateral: 10.80 E'Medial: 7.40 Aortic Valve AoV Pk Erasto: 2.44 AoV Mn Erasto: 1.59 AoV VTI: 0.41 AoV Pk Grad: 24.00 Aov Mn Grad: 12.00 TUNDE Cont.VTI: 1.74 LVOT LVOT Pk Erasto: 1.27 LVOT Mn Erasto: 0.84 LVOT VTI: 0.23 LVOT Pk Grad: 6.00 LVOT Mn Grad: 3.00 LVOT Diam: 2.00 LVOT Area: 3.14 Diastolic Function E'Medial: 7.40 E' Laterial: 10.80 Right Ventricle TAPSE (mm): 21.40 TVS' Erasto: 14.40 Tricuspid Valve TR Pk Erasto: 2.37 TR Pk Grad: 22.00 RA Press: 3.00 RVSP: 25.00 Great Vessels Aorta Sinus of Valsalva: 3.20 2.0-3.5 cm Ao Asc: 3.10 2.1-3.4 cm Pulmonary Valve PV Pk Erasto: 1.07 Peak PV Grad: 5.00 Updated in Other Vendor System with Status of Final Ted Josue MD electronically signed on 06/25/2022 11:25:54 AM with status of Final
== END ==
LOC: HO.CARD 13:31
PROVIDERS: PCP Internal Medicine; Visit Provider Internal Medicine
DX: I35.0 Nonrheumatic aortic (valve) stenosis (principal)
CPT/HCPCS: 93306

== ENCOUNTER 2022-07-07 14:14 | Outpatient (REF) | payer OTHER, SELFPAY ==
[2022-07-07 15:44] LABS: Alanine Aminotransferase 21 U/L (0-40); Albumin Level 4.6 g/dL (3.5-5.0); Alkaline Phosphatase 57 U/L (39-117); Anion Gap 18 (12-20); Aspartate Amino Transferase 19 U/L (5-37); Bilirubin Total 0.3 mg/dL (0.0-1.0); Blood Urea Nitrogen 27 mg/dL (9-16); Calcium 9.7 mg/dL (8.4-10.2); Carbon Dioxide 20 mmol/L (22-29); Chloride 103 mmol/L (96-108); Cholesterol 171 mg/dL; Estimated Glomerular Filt Rate > 60; Glucose Fasting 127 mg/dL (60-99); HDL Cholesterol 56 mg/dL; LDL Cholesterol Calculated 99 mg/dl; Sodium 136 mmol/L (135-145); Total Protein 7.8 g/dL (6.5-8.0); Triglycerides 83 mg/dL
[2022-07-07 16:05] LABS: Vitamin D 25-OH Total 23.7 ng/mL (>30)
[2022-07-07 17:44] LABS: Creatinine Urine 144.24 mg/dL; Microalbum/Creatinine Ratio Ur 25.6 ug/mg cr
[2022-07-08 04:00] LABS: HBsAGNum1 0.14 S/CO (0.00-0.99); Hepatitis B Surface Antigen Negative (Negative); ~HepC Num1 0.11 S/CO (0.00-0.79); ~Hepatitis C Antibody Nonreactive (Nonreactive)
[2022-07-08 14:26] LABS: Complement C3 93 mg/dL (82-185)
[2022-07-10 01:42] LABS: Hepatitis B Core Antibody IgM NON-REACTIVE (NON-REACTIVE)
[2022-07-11 13:32] LABS: Anti Nuclear Antibody Screen NEGATIVE (NEGATIVE)
[2022-07-12 10:23] LABS: Neutrophil Cyto Ab Screen NEGATIVE (NEGATIVE)
[2022-07-12 14:07] LABS: Anti Glomerular Basement Memb <1.0 AI; Myeloperoxidase Antibody <1.0 AI
== END 2022-07-07 14:15 | disposition home or self-care (01) ==
LOC: HO.LAB 14:14
PROVIDERS: PCP Internal Medicine; Visit Provider Internal Medicine Hypertension Specialist
DX: E11.65 Type 2 diabetes mellitus with hyperglycemia (principal); N18.30 Chronic kidney disease, stage 3 unspecified; E78.5 Hyperlipidemia, unspecified; E55.9 Vitamin D deficiency, unspecified; Z79.4 Long term (current) use of insulin
CPT/HCPCS: 36415; 80053; 80061; 82043; 82306; 83520; 86021; 86036; 86037; 86038; 86039; 86160; 86705; 86803; 87340

== ENCOUNTER 2022-07-25 09:21 | Outpatient (REF) | payer OTHER, SELFPAY ==
[2022-07-25 09:34] LABS: MANUAL DIFF FLAG NO
[2022-07-25 10:51] LABS: Basophils Absolute Auto 0.1 X10*3/uL (0.0-0.2); Basophils Percent Auto 0.6 % (0-2); Eosinophils Absolute Auto 1.4 X10*3/uL (0.0-0.4); Eosinophils Percent Auto 13.5 % (0-4); Hematocrit 44.1 % (42.0-52.0); Hemoglobin 14.3 g/dl (14.0-18.0); Imm Gran Abs Auto 0.07 X10*3/uL (0.00-0.03); Imm Gran Pct Auto 0.7 % (0.0-0.4); Lymphocytes Percent Auto 19.2 % (20-40); Mean Corpuscular HGB Conc 32.4 g/dl (31.0-36.0); Mean Corpuscular Hemoglobin 29.5 pg (27.0-33.0); Mean Corpuscular Volume 90.9 fL (80.0-98.0); Mean Platelet Volume 10.1 fL (9.4-12.4); Monocytes Percent Auto 9.1 % (2-11); Neutrophils Absolute Auto 6.1 x10*3/uL (2.0-8.3); Neutrophils Percent Auto 56.9 % (45-73); Platelet Count 273 X10*3/uL (160-400); Red Blood Count 4.85 X10*6/uL (4.60-5.80); Red Cell Distribution Width 13.2 % (11.0-16.0); White Blood Count 10.6 X10*3/uL (4.8-10.8)
[2022-07-25 11:00] LABS: Alanine Aminotransferase 21 U/L (0-40); Albumin Level 4.4 g/dL (3.5-5.0); Alkaline Phosphatase 52 U/L (39-117); Anion Gap 17 (12-20); Aspartate Amino Transferase 20 U/L (5-37); Bilirubin Total 0.5 mg/dL (0.0-1.0); Blood Urea Nitrogen 27 mg/dL (9-16); Calcium 9.7 mg/dL (8.4-10.2); Carbon Dioxide 22 mmol/L (22-29); Chloride 102 mmol/L (96-108); Cholesterol 168 mg/dL; Estimated Glomerular Filt Rate 45; Glucose Fasting 169 mg/dL (60-99); HDL Cholesterol 41 mg/dL; LDL Cholesterol Calculated 95 mg/dl; Potassium 5.6 mmol/L (3.3-5.1); Sodium 135 mmol/L (135-145); Total Protein 7.7 g/dL (6.5-8.0); Triglycerides 162 mg/dL
[2022-07-25 12:26] LABS: Creatinine Urine 70.11 mg/dL; Microalbum/Creatinine Ratio Ur 25.6 ug/mg cr
[2022-07-29 06:22] LABS: Vitamin D 25-OH, D2 <4 ng/mL; Vitamin D 25-OH, D3 27 ng/mL; Vitamin D 25-OH, Total 27 ng/mL (30-100)
== END 2022-07-25 09:22 | disposition home or self-care (01) ==
LOC: HO.LAB 09:21
PROVIDERS: PCP Internal Medicine; Visit Provider Internal Medicine
DX: D64.9 Anemia, unspecified (principal); E78.5 Hyperlipidemia, unspecified; E11.8 Type 2 diabetes mellitus with unspecified complications; E55.9 Vitamin D deficiency, unspecified
CPT/HCPCS: 36415; 80053; 80061; 82043; 82306; 85025

== ENCOUNTER → 2022-09-21 09:53 | Outpatient (BNVA) | payer OTHER, SELFPAY | PROVIDERS: PCP Internal Medicine; Referring Provider Internal Medicine; Visit Provider Internal Medicine | DX: I35.0 Nonrheumatic aortic (valve) stenosis (principal); I10 Essential (primary) hypertension; E11.8 Type 2 diabetes mellitus with unspecified complications; Z79.4 Long term (current) use of insulin; Z79.899 Other long term (current) drug therapy | CPT/HCPCS: 93005; 99212 ==

== ENCOUNTER 2022-11-09 08:00 | Day surgery (SDC) | payer OTHER, SELFPAY ==
[2022-11-09 06:47] VITALS: BMI 27.3
[2022-11-09 08:12] VITALS: BP 122/60; PULSE 96; RESP 20; TEMP 36.6; O2SAT 94
[2022-11-09 08:25] LABS: Glucose, Whole Blood 164 mg/dL (60-115)
[2022-11-09] MEDS: Lactated Ringers 1,000 ML 50 ML IVCONT (08:40)
--- NOTE | 2022-11-09 08:53 | HO.ANESPROP2 ---
HPI - Anesthesia Eval Consult details Narrative: 71 yr old with PMH of ( not hemodynamicallysignificant) IDDM, CKD, HTN, HLD for screening colonoscopy [facility] Active Problems Active Problems: All Active Problems (Updated 07/28/22 @ 11:00 by Sheba Corbett MD) Anemia (Acute) Precordial chest pain (Acute) Psoriasis (Acute) Anemia (Acute) Cellulitis (Acute) Occult blood positive stool (Acute) Tinea (Acute) Rash (Acute) Medicare annual wellness visit, subsequent (Acute) Bursitis of right shoulder (Acute) Pruritic rash (Acute) Acromioclavicular joint arthritis (Acute) Hyperkalemia (Acute) Restless leg syndrome (Acute) Mild persistent asthma (Acute) CKD stage 3 due to type 2 diabetes mellitus (Acute) Benign essential hypertension (Acute) Diabetes mellitus, with long-term current use of insulin (Acute) Pure hypercholesterolemia (Acute) Right shoulder pain (Acute) GERD (gastroesophageal reflux disease) (Acute) Left shoulder pain (Acute) Type 2 diabetes mellitus with unspecified complications (Acute) Essential hypertension (Acute) Non-rheumatic aortic stenosis (Acute) Otitis (Acute) Loss of hearing (Acute) Hypertension (Acute) High cholesterol (Acute) Diabetes (Acute) Past Medical History Medical History (Updated 07/28/22 @ 11:00 by Sheba Corbett MD) Asthma Benign essential hypertension CKD stage 3 due to type 2 diabetes mellitus Diabetes Diabetes mellitus, with long-term current use of insulin Essential hypertension GERD (gastroesophageal reflux disease) High cholesterol HTN (hypertension) Hypertension IDDM (insulin dependent diabetes mellitus) Left shoulder pain Loss of hearing Mild persistent asthma Non-rheumatic aortic stenosis Normocytic anemia Otitis Pure hypercholesterolemia Restless leg syndrome Right shoulder pain Type 2 diabetes mellitus with unspecified complications Family History Family History Father No problems noted. Mother No problems noted. Family/Other FH: mental illness Brother In good health Sister In good health Son In good health Daughter In good health Other Mental health disorder Family history of problems with anesthesia: No Surgical History Surgical History (Updated 11/08/22 @ 10:27 by Nola Cintron RN) History of implantation of penile prosthesis Hx of cholecystectomy History of Problems with Anesthesia: No Social History Social History (Updated 09/21/22 @ 10:09 by Lory Felton) Household Members: None Housing: Apartment Do you presently have visiting nurse or other home services: No Alcohol intake: current Alcohol intake frequency: holidays/special occasions only Alcohol type: hard liquor Patient Tobacco Use Status: Current everyday Tobacco user Tobacco use type: Cigarette Cigarettes Per Day: 10 e-Cigarette/Vaping Use: Never Used Second Hand Smoke Exposure: No Are you DNR?: No Advance Directives: No Advance Directives Information Provided: Yes Nutrition Risks: No Nutritional Risk service: No Current occupational status: disabled Cognitive needs: No Hearing needs: No Vision needs: Yes Meds Allergies Allergy/AdvReac Type Severity Reaction Status Date / Time doxycycline Allergy Intermediate Itching Verified 09/21/22 09:59 levofloxacin Allergy Intermediate Itching Verified 09/21/22 09:59 metformin Allergy Intermediate diarrhea Verified 09/21/22 09:59 morphine [MORPHINE] Allergy Intermediate ITCHING Verified 09/21/22 09:59 tetracycline Allergy Intermediate Itching Verified 09/21/22 09:59 cefazolin AdvReac Mild Diarrhea, Verified 09/21/22 09:59 itchy Active Medications: Current Medications Lactated Ringer's (Lr) 1,000 mls @ 50 mls/hr IVCONT .Q20H DEONTE Last Admin: 11/09/22 08:40 Dose: 50 mls/hr Sodium Biphosphate/Sodium Phosphate (Sodium Phosphate,[place]-Dibasic 133 Ml Enema) 133 ml [place] ONCE PRN PRN Reason: Poor Colonoscopy Prep Results Home Medications Medication Instructions Recorded Confirmed Last Taken Type sodium polystyrene sulfonate 30 g PO MOFR PRN high potassium 05/04/21 09/21/22 Unknown History apremilast 30 mg tablet (Otezla) 30 mg PO BID 10/26/21 09/21/22 Unknown History Exam Exam Date and Time: November 09, 2022 0853 Height,Weight and Vital Signs: Height 5 ft 7 in Weight 79.379 kg Last Vital Signs Temp 98 F 11/09/22 08:12 Pulse 96 11/09/22 08:12 Resp 20 11/09/22 08:12 BP 122/60 11/09/22 08:12 Pulse Ox 94 11/09/22 08:12 O2 Del Method 11/09/22 08:12 Pertinent Lab Results Pertinent Lab Results: Laboratory Tests 02/08/23 08:21 POC Glucose 164 H Airway Mallampati Class: II TM Dist: >3cm Neck ROM: Full Heart: rrr Lungs: cta Assessment and Plan Assessment Anesthesia Assessment: Anesthesia Plan Discussed and Chart Reviewed Final Anesthetic Review Family History of Problems with Anesthesia: No History of Problems with Anesthesia: No NPO: Yes ASA Class: III Final Preanesthetic Review: No Changes in Pt Med Stat, Meds/Allgs Chart Reviewed, Consent Obtained/Reviewed and Anes Risks/Benef Reviewed Patient Risk: Low Procedure Risk: Low Anesthetic Plan Anesthetic Plan: MAC: Disposition: Standard PACU
--- NOTE | 2022-11-09 10:28 | P.BOP_ITS ---
Brief Operative Note Date of Service: 11/09/22 Pre-op diagnosis: Screening Post-op diagnosis: other (Colon polyps, Diverticulosis) Procedure: Colonoscopy to the cecum and TI with cold snare polypectomy x 2 Surgeon: Wil Peterson Anesthesia: MAC Was an Consulting Sales Manager used for this Procedure?: No Estimated blood loss (mL): 2.0 Pathology: other (A. Transverse colon polyp B. Polyp at 50cm) Condition: stable Disposition: PACU
[2022-11-09 10:30] VITALS: BP 96/51; PULSE 84; RESP 20; TEMP 36.5; O2SAT 93
[2022-11-09 10:45] VITALS: BP 116/68; PULSE 79; RESP 18; TEMP 36.1; O2SAT 97
--- NOTE | 2022-11-09 11:50 | OP_ITS ---
SURGEON: Wil Peterson MD INDICATIONS: The patient presents for evaluation of colorectal cancer screening. Full consent has been obtained from him for this, including risks of bleeding and perforation. PREOPERATIVE DIAGNOSIS: Colorectal cancer screening. POSTOPERATIVE DIAGNOSIS: PROCEDURE PERFORMED: ESTIMATED BLOOD LOSS: COMPLICATIONS: ANESTHESIA: Monitored anesthesia care. ASSISTANTS: SPECIMENS: PROCEDURE: Colonoscopy of the cecum and terminal ileum with cold snare polypectomy x2. POSTOPERATIVE DIAGNOSES: Colorectal cancer screening, colorectal polyps, diverticulosis, and internal hemorrhoids. DESCRIPTION OF PROCEDURE: The patient was placed in the left lateral decubitus position. The digital rectal exam revealed no abnormalities. The Olympus video pediatric colonoscope was entered into the rectum and advanced easily to the cecum. Once in the cecum, I did identify normal-appearing cecal pouch with appendiceal orifice and a normal-appearing ileocecal valve. The terminal ileum was cannulated and appeared normal. The scope was withdrawn back in the colon. There were several diverticula in the cecum, but otherwise the cecum was normal. The scope was slowly withdrawn assessing all mucosal surfaces carefully. Preparation was excellent although did require some suctioning and irrigation. In the transverse colon was an approximately 5 or 6 mm polyp, which was removed by cold snare polypectomy and recovered by suction. The polypectomy site appeared clean, without any sign of residual polyp nor any significant bleeding. At 50 cm was a 5 or 6 mm polyp, which was removed by cold snare polypectomy and recovered by suction. The polypectomy site appeared clean, without any sign of residual polyp nor bleeding. I did not visualize any other polyps, colitis, nor angiodysplasia. There was a moderate amount of diverticulosis in the sigmoid and descending colon. In the rectum, the scope was retroflexed visualizing internal hemorrhoids, but no other pathology. The rectal mucosa appeared normal. The scope was straightened and withdrawn from the patient. He tolerated the procedure well and was returned to the recovery area in stable condition. IMPRESSION: 1. Colon polyps. 2. Diverticulosis. 3. Internal hemorrhoids. PLAN: If these polyps are tubular adenomas, I would recommend a followup colonoscopy in 5 years. If they happen to be both hyperplastic, then I do not think he would need any further screening colonoscopies given his age of 71 at the present time. He was advised not to use any aspirin and NSAIDs for 1 week. This has been discussed with his daughter. MD ALEN Mcfarlane/NILSA / [id number] CASI
== END 2022-11-09 11:20 | disposition home or self-care (01) ==
PROVIDERS: PCP Internal Medicine; Visit Provider Internal Medicine
PROC: 0DJD8ZZ Inspection of Lower Intestinal Tract, Via Natural or Artificial Opening Endoscopic (ICD-10-PCS; CPT 45378; principal; 2022-11-09 09:40)
DX: Z12.11 Encounter for screening for malignant neoplasm of colon (principal); D12.3 Benign neoplasm of transverse colon; D12.5 Benign neoplasm of sigmoid colon; K57.30 Diverticulosis of large intestine without perforation or abscess without bleeding; K64.8 Other hemorrhoids; K21.9 Gastro-esophageal reflux disease without esophagitis; Z87.19 Personal history of other diseases of the digestive system; E11.22 Type 2 diabetes mellitus with diabetic chronic kidney disease; I12.9 Hypertensive chronic kidney disease with stage 1 through stage 4 chronic kidney disease, or unspecified chronic kidney disease; N18.30 Chronic kidney disease, stage 3 unspecified; Z79.4 Long term (current) use of insulin; J45.30 Mild persistent asthma, uncomplicated; Z79.51 Long term (current) use of inhaled steroids; Z79.82 Long term (current) use of aspirin; Z90.49 Acquired absence of other specified parts of digestive tract; Z88.8 Allergy status to other drugs, medicaments and biological substances; F17.210 Nicotine dependence, cigarettes, uncomplicated; Z79.899 Other long term (current) drug therapy
CPT/HCPCS: 45385; 82947; 88305; J3010

== ENCOUNTER 2022-11-17 12:44 | Emergency (ER) | payer OTHER, SELFPAY ==
--- NOTE | ~2022-11-17 | CT_ITS ---
EXAMINATION: CT HEAD WITHOUT CONTRAST CLINICAL INFORMATION: Left-sided headache and neck pain. COMPARISON: 07/07/[address] scan. TECHNIQUE: Contiguous axial imaging was performed from the skull base to vertex without intravenous administration of contrast. Coronal and sagittal reformatted images were obtained. This CT examination was performed using dose optimization techniques as appropriate, variously including the following: *Automated exposure control *Adjustment of mA and/or kV according to patient size (this includes techniques or standardized protocols for targeted exams where dose is matched to indication/reason for exam; i.e. extremities or head) *Use of iterative reconstruction technique DLP: 679.98 mGy-cm FINDINGS: There is mild widening of the cortical sulci and associated ventriculomegaly. Mild periventricular microvascular changes are seen. The lateral ventricles are symmetrical. The third and fourth ventricles are in their normal midline position. The basilar and prepontine cisterns are unremarkable. There is no acute intra or extracerebral abnormality. There is no mass effect or midline shift. Sections through the bony calvarium are unremarkable. The orbits are intact. The paranasal sinuses show mild to moderate bilateral maxillary and ethmoid sinus mucosal thickening. The mastoid air cells show small effusions inferiorly towards the mastoid processes. CT/CT head/brain wo IV con IMPRESSION: No acute intracranial pathology.
--- NOTE | ~2022-11-17 | CT_ITS ---
EXAMINATION: CT CERVICAL SPINE WITHOUT CONTRAST CLINICAL INFORMATION: Left-sided neck pain for 3 days. COMPARISON: None TECHNIQUE: Multiple axial images of the cervical spine were obtained without the administration of intravenous contrast. Coronal and sagittal reformatted images were obtained. This CT examination was performed using dose optimization techniques as appropriate, variously including the following: *Automated exposure control *Adjustment of mA and/or kV according to patient size (this includes techniques or standardized protocols for targeted exams where dose is matched to indication/reason for exam; i.e. extremities or head) *Use of iterative reconstruction technique DLP: 430.55 mGy-cm FINDINGS: There is normal cervical lordosis and spinal alignment. Mild multilevel marginal osteophyte formation is seen most pronounced at C6-C7. The vertebral bodies and odontoid processes are intact. Mild odontoid process articular degenerative changes are seen. The neural foramina are patent. The facet joints are unremarkable. The soft tissues are unremarkable. No lymphadenopathy. The thyroid gland is unremarkable. The visualized lung apices are clear. CT/CT cervical spine wo IV con IMPRESSION: Mild multilevel degenerative changes without acute abnormality.
--- NOTE | ~2022-11-17 | XR_ITS ---
EXAMINATION: XR CHEST CLINICAL INFORMATION: Cough and headache. COMPARISON: 02/15/2022 chest and rib radiographs. TECHNIQUE: 2 views of the chest were obtained. FINDINGS: The lungs are clear. Mild linear markings are seen in the lingula. There are no pleural effusions. The heart and mediastinal structures are unremarkable. XR/XR chest 2V IMPRESSION: Mild linear atelectasis versus scarring in the lingula without significant change. No acute cardiopulmonary process.
[2022-11-17 12:56] VITALS: BP 140/67; PULSE 88; RESP 19; TEMP 36.6; O2SAT 98; BMI 28.1
--- NOTE | 2022-11-17 13:00 | ED_ITS ---
HPI - Headache General Chief Complaint: Headache Stated Complaint: headache x3 days, cant sleep Source: patient Mode of arrival: ambulatory Limitations: no limitations History of Present Illness HPI Narrative: 71yoM with a PMHx of asthma, CKD, psoriasis, type 2 diabetes, hypertension, hyperlipidemia, nonrheumatic aortic stenosis, anemia, GERD and loss of hearing who is presenting to the ER with complaints of a headache to left side of his head that radiates to his left neck for the past 3 days worse today.? Reports a cough and diarrhea as well.? Reports he had this in the past and was seen here and was sent home does not understand when he had.? Denies any fevers, dizziness, change in vision, ear pain, sore throat, trouble swallowing or breathing, paresthesias, chest pain or shortness of breath, abdominal pain, nausea/vomiting, recent head injury or any other symptoms complaints or concerns at this time. MD elicited complaint: headache Onset (ago): day(s) (3) Onset description: gradually Location: left and parietal Severity: moderate Quality & Timing: aching Exacerbating factors: none Relieving factors: nothing Context: other (Cannot recall) Associated symptoms: other (Cough and diarrhea) Related Data Home Medications Medication Instructions Recorded Confirmed sodium polystyrene sulfonate 30 g PO MOFR PRN high potassium 05/04/21 09/21/22 apremilast 30 mg tablet (Otezla) 30 mg PO BID 10/26/21 09/21/22 Previous Rx's Medication Instructions Recorded onetouch glucometer #1 ea 10/09/20 lancets 33 gauge (OneTouch Delica #100 ea 12/15/20 Lancets) triamcinolone acetonide 0.1 % 1 appl topical BID 1 week #30 grams 12/21/21 topical ointment aspirin 81 mg tablet,delayed 81 mg PO DAILY #90 tabs 12/26/21 release nebulizers (AeroEclipse II #1 ea 01/10/22 Nebulizer) clotrimazole-betamethasone 1 1 appl topical BID #15 grams 02/09/22 %-0.05 % topical cream pen needle, diabetic 31 gauge x #1,200 ea 02/15/22/ (BD Ultra-Fine Short Pen Needle) acetaminophen 325 mg capsule 650 mg PO Q4H PRN pain #30 caps 02/20/22 (Tylenol) cyclobenzaprine 10 mg tablet 10 mg PO TID PRN muscle spasm #10 02/20/22 tabs diabetic shoes and inserts #1 ea 03/10/22 albuterol sulfate 90 mcg/actuation 1 inh inhalation QID 30 days #6.7 04/20/22 aerosol inhaler grams blood sugar diagnostic (OneTouch #100 ea 05/24/22 Verio test strips) empagliflozin 25 mg tablet 25 mg PO QAM #30 tabs 06/27/22 (Jardiance) fluticasone 500 mcg-salmeterol 50 1 inh PO BID 90 days #180 ea 07/17/22 mcg/dose blistr powdr for inhalation (Wixela Inhub) linagliptin 5 mg tablet (Tradjenta) 5 mg PO DAILY #30 tabs 07/23/22 amlodipine 5 mg tablet 5 mg PO DAILY 90 days #90 tabs 07/28/22 gabapentin 300 mg capsule 600 mg PO DAILY 90 days #180 caps 07/28/22 ipratropium 0.5 mg-albuterol 3 mg 3 ml inhalation Q6H PRN for 08/16/22 (2.5 mg base)/3 mL nebulization wheezing 30 days #90 mL soln insulin glargine 100 unit/mL (3 25 unit (0.25 mL) subcut QPM 90 08/18/22 mL) subcutaneous pen ( #22.5 mL Solostar U-100 Insulin) pramipexole 0.125 mg tablet 0.125 mg PO BEDTIME 90 days #90 08/23/22 tabs tamsulosin 0.4 mg capsule 0.4 mg PO DAILY #90 caps 09/13/22 omeprazole 20 mg capsule,delayed 20 mg PO BID #180 caps 09/26/22 release ipratropium 20 mcg-albuterol 100 1 puff inhalation Q6H PRN wheezing 10/03/22 mcg/actuation mist for inhalation 30 days #4 grams (Combivent Respimat) lisinopril 20 mg tablet 20 mg PO DAILY 90 days #90 tabs 10/07/22 rosuvastatin 20 mg tablet 20 mg PO DAILY 90 days #90 tabs 10/22/22 Allergies Allergy/AdvReac Type Severity Reaction Status Date / Time doxycycline Allergy Intermediate Itching Verified 11/17/22 12:59 levofloxacin Allergy Intermediate Itching Verified 11/17/22 12:59 metformin Allergy Intermediate diarrhea Verified 11/17/22 12:59 morphine [MORPHINE] Allergy Intermediate ITCHING Verified 11/17/22 12:59 tetracycline Allergy Intermediate Itching Verified 11/17/22 12:59 cefazolin AdvReac Mild Diarrhea, Verified 11/17/22 12:59 itchy Review of Systems Review of Systems: Constitutional : No changes in activity, No lethargy, No recent prior head injury, No agitation, No increased fussiness ENT/Mouth : No Ear Pain, No Nasal discharge/drainage Eyes: No Eye Pain, No Swelling, No Redness, No Foreign Body, No Vision Changes Cardiovascular : No Chest Pain, No SOB Respiratory : + Cough Gastrointestinal : No Nausea, No Vomiting, No abdominal Pain, + Diarrhea, Genitourinary : No Dysuria, No Urinary Frequency, No Urinary Incontinence, No Urgency, No Flank Pain Musculoskeletal : No joint pain, No neck stiffness, No back pain/injury Skin : No lacerations Neuro : No unsteady gait, No Paresthesias, No Loss of Consciousness, No altered mental status, No dizziness, + Headache Denies past medical history of HIV, recent trauma, coagulopathy, recent spinal/ epidural procedure, new medication, URI symptoms, close contacts with similar symptoms, tick bite, or known CO2 exposure. Yes all other systems are reviewed and are negative PMFSH Past Medical History Attestation statement: The following information was validated with the patient. Source: old records reviewed and nursing notes reviewed Medical History Asthma Benign essential hypertension CKD stage 3 due to type 2 diabetes mellitus Diabetes Diabetes mellitus, with long-term current use of insulin Essential hypertension GERD (gastroesophageal reflux disease) High cholesterol HTN (hypertension) Hypertension IDDM (insulin dependent diabetes mellitus) Left shoulder pain Loss of hearing Mild persistent asthma Non-rheumatic aortic stenosis Normocytic anemia Otitis Pure hypercholesterolemia Restless leg syndrome Right shoulder pain Type 2 diabetes mellitus with unspecified complications Surgical History History of implantation of penile prosthesis Hx of cholecystectomy Family History Family History Father No problems noted. Mother No problems noted. Family/Other FH: mental illness Brother In good health Sister In good health Son In good health Daughter In good health Other Mental health disorder Social History Social History Household Members: None Housing: Apartment Do you presently have visiting nurse or other home services: No Alcohol intake: current Alcohol intake frequency: holidays/special occasions only Alcohol type: hard liquor Patient Tobacco Use Status: Current everyday Tobacco user Tobacco use type: Cigarette Cigarettes Per Day: 10 e-Cigarette/Vaping Use: Never Used Second Hand Smoke Exposure: No service: No Current occupational status: disabled Cognitive needs: No Hearing needs: No Vision needs: Yes Physical Exam Vital Signs: Vital Signs: Last Vital Signs Temp 98 F 11/17/22 12:56 Pulse 88 11/17/22 12:56 Resp 19 11/17/22 12:56 BP 140/67 H 11/17/22 12:56 Pulse Ox 98 11/17/22 12:56 O2 Del Method 11/17/22 12:56 BMI result Body Mass Index 28.1 Vital signs have been reviewed as normal and appeared to be correct. Blood pressure normal. Heart rate normal. Respiration rate normal. Temperature normal. Oxygen saturation normal. Appearance: Alert. Oriented X3. No acute distress. Head: Normal external exam. Normocephalic. Atraumatic. Able to rotate head gage aterally. Eyes: PERRLA. EOMI. No nystagmus noted. Conjunctiva and sclera normal. Eyelids normal. Corneal reflex normal. ENT: EAC normal. TM's Normal. Hearing normal. Pharynx normal. Uvula midline. tongue midline. Moist mucous membranes. No trismus noted. No drooling noted. No muffled voice noted. Neck: Normal inspection. Neck supple. FROM. No adenopathy. Thyroid Normal. No meningeal signs. No neck mass noted. CVS: Normal heart rate and rhythm. Heart sound normal. No murmurs noted. Pulses normal throughout. Respiratory: No respiratory distress. Painless inspiration. Breath sounds normal . No wheezes/rales/rhonchi noted. Chest nontender. No accessory muscle usage noted or decreased air movement noted. Back: Full range of motion noted. Skin: Skin warm and dry. Normal skin color. Normal skin turgor. No rashes/lesions/lacerations noted. Extremities: Extremities exhibit normal range of motion. Extremities nontender. Able to shrug shoulders bilaterally and keep up against resistance. Neuro: Oriented X 3. No motor deficit. No sensory deficit. Reflexes normal. Moving all extremities. No focal motor deficits. Cranial nerves II-XI intact bilaterally. Facial strength normal. Normal cognition. Speech normal. Gait normal. Strength 5/5 throughout. No pronator drift. No tremor noted. No fasciculations noted. Muscle tone normal throughout. No asterixis noted. Eratop-hb-iouw test normal. Heel to lal test normal. Tandem gait normal. Does not sway with eyes open. Romberg test negative. Rapid alternating movement upper extremity normal. Rapid alternating movement lower extremity normal. Hand drop from overhead-Mrs. face. No rigidity noted. NIHSS score 0. Course Course Course Narrative: RME- 13PM - 71yoM with a PMHx of asthma, CKD, psoriasis, type 2 diabetes, hypertension, hyperlipidemia, nonrheumatic aortic stenosis, anemia, GERD and loss of hearing who is presenting to the ER with complaints of a headache to left side of his head that radiates to his left neck for the past 3 days worse today. Reports a cough and diarrhea as well. Reports he had this in the past and was seen here and was sent home does not understand when he had. Denies any fevers, diz ziness, change in vision, ear pain, sore throat, trouble swallowing or breathing, paresthesias, chest pain or shortness of breath, abdominal pain, nausea/vomiting, recent head injury or any other symptoms complaints or concerns at this time. Plan: Will obtain basic labs, CT scan of brain/cervical spine a chest x-ray and COVID/RSV/flu swab. Patient will be sent back to the waiting room to be [facility]manza[facility] in [facility] [place]. Reevaluation(s) Reevaluation #1: Labs were obtained and reviewed patient's potassium 5.5. BUN/creatinine 23/1. 42. Random glucose was 134. Patient negative for COVID/RSV/flu. CT scan of brain/cervical spine within normal limits no acute processes were noted. Chest x-ray revealed chronic changes no acute processes were noted. Although patient eloped before results returned. Medical Decision Making Lab Data MDM Lab Attestation statement: I reviewed the patient's lab results. 11/17/22 14:00 11/17/22 14:00 Labs: Lab Results 11/17/22 11/17/22 11/17/22 Range/Units 14:00 14:00 14:00 WBC 10.5 (4.8-10.8) X10*3/uL RBC 4.85 (4.60-5.80) X10*6/uL Hgb 14.5 (14.0-18.0) g/dl Hct 44.3 (42.0-52.0) % MCV 91.3 (80.0-98.0) fL MCH 29.9 (27.0-33.0) pg MCHC 32.7 (31.0-36.0) g/dl RDW 13.4 (11.0-16.0) % Plt Count 250 (160-400) X10*3/uL MPV 9.9 (9.4-12.4) fL Immature Gran % (Auto) 0.5 H (0.0-0.4) % Neut % (Auto) 57.3 (45-73) % Lymph % (Auto) 22.3 (20-40) % [place] % (Auto) 9.2 (2-11) % Eos % (Auto) 10.1 H (0-4) % Baso % (Auto) 0.6 (0-2) % Lymph # (Auto) 2.4 (1.2-4.9) X10*3/uL [place] # (Auto) 1.0 (0.1-1.2) X10*3/uL Eos # (Auto) 1.1 H (0.0-0.4) X10*3/uL Baso # (Auto) 0.1 (0.0-0.2) X10*3/uL Abs Immat Gran (auto) 0.05 H (0.00-0.03) X10*3/uL Absolute Neuts (auto) 6.0 (2.0-8.3) x10*3/uL Absolute Nucleated RBC 0.000 (0.0-0.012) X10*3/uL Nucleated RBC % (auto) 0.0 (0.0-0.2) /100WBC Sodium 137 (135-145) mmol/L Potassium 5.5 H (3.3-5.1) mmol/L Chloride 108 (96-108) mmol/L Carbon Dioxide 20 L (22-29) mmol/L Anion Gap 15 (12-20) BUN 23 H (9-16) mg/dL Creatinine 1.42 H (0.5-1.4) mg/dL Estim Creat Clear Calc 49.5 Estimated GFR 49 Random Glucose 134 H (60-115) mg/dL Calcium 9.1 D (8.4-10.2) mg/dL Magnesium 2.1 (1.6-2.6) mg/dL Total Bilirubin 0.4 (0.0-1.0) mg/dL AST 21 (5-37) U/L ALT 23 (0-40) U/L Alkaline Phosphatase 53 (39-117) U/L Total Protein 7.6 (6.5-8.0) g/dL Albumin 4.4 (3.5-5.0) g/dL Influenza Type A (PCR) NEGATIVE (Negative) Influenza Type B (PCR) NEGATIVE (Negative) RSV RNA Qual (PCR) NEGATIVE (Negative) SARS-CoV-2 RNA (RT-PCR) NEGATIVE (Negative) Independent Interpretation I performed an independent interpretation of an: Plain X-Ray (Reviewed myself although patient eloped before discussed results) and CT Scan (Reviewed by myself although unable to discussed with patient as he eloped before results return) Radiology Impression Discussion of test interpretation with radiology: I have reviewed the radiologist's reading. Radiologist Impression: FINDINGS: There is mild widening of the cortical sulci and associated ventriculomegaly. Mild periventricular microvascular changes are seen. The lateral ventricles are symmetrical. The third and fourth ventricles are in their normal midline position. The basilar and prepontine cisterns are unremarkable. There is no acute intra or extracerebral abnormality. There is no mass effect or midline shift. Sections through the bony calvarium are unremarkable. The orbits are intact. The paranasal sinuses show mild to moderate bilateral maxillary and ethmoid sinus mucosal thickening. The mastoid air cells show small effusions inferiorly towards the mastoid processes. CT/CT head/brain wo IV con IMPRESSION: No acute intracranial pathology. FINDINGS: There is normal cervical lordosis and spinal alignment. Mild multilevel marginal osteophyte formation is seen most pronounced at C6-C7. The vertebral bodies and odontoid processes are intact. Mild odontoid process articular degenerative changes are seen. The neural foramina are patent. The facet joints are unremarkable. The soft tissues are unremarkable. No lymphadenopathy. The thyroid gland is unremarkable. The visualized lung apices are clear. CT/CT cervical spine wo IV con IMPRESSION: Mild multilevel degenerative changes without acute abnormality. FINDINGS: The lungs are clear. Mild linear markings are seen in the lingula. There are no pleural effusions. The heart and mediastinal structures are unremarkable. XR/XR chest 2V IMPRESSION: Mild linear atelectasis versus scarring in the lingula without significant change. No acute cardiopulmonary process. External Record Review External record reviewed: Inpatient record, Office record, Outpatient record, Prior outpatient labs, Prior outpatient radiology, Primary care record and Outside ED record Discharge Plan Discharge Clinical Impression: Acute hyperkalemia, SUKUMAR (acute kidney injury) Patient Disposition: Elopement Prescriptions: No Action (DME) onetouch glucometer See Rx Instructions .Route .MEDSUPPLY Qty: 1 0RF Rx Instructions: As directed (DME) lancets [Glamorous TravelTouch Delica Lancets] 33 gauge misc See Rx Instructions .ROUTE .MEDSUPPLY Qty: 100 11RF Rx Instructions: Check by finger stick route 4 times every day aspirin 81 mg tablet,delayed release (DR/EC) 81 mg PO DAILY Qty: 90 3RF (DME) AeroEclipse II Nebulizer Misc See Rx Instructions .Route Qty: 1 0RF Rx Instructions: As directed (DME) pen needle, diabetic [BD Ultra-Fine Short Pen Needle] 31 gauge x 5/16 needle See Rx Instructions .ROUTE .MEDSUPPLY Qty: 1200 0RF Rx Instructions: As directed daily with Lantus albuterol sulfate 90 mcg/actuation HFA aerosol inhaler 1 inh inhalation QID 30 Days Qty: 6.7 0RF (DME) OneTouch Verio test strips Strip See Rx Instructions .ROUTE .MEDSUPPLY Qty: 100 11RF Rx Instructions: Use 3 times a day to test BG daily for 30 days Jardiance 25 mg tablet 25 mg PO QAM Qty: 30 6RF fluticasone propion-salmeterol [Wixela Inhub] 500-50 mcg/dose blister with device 1 inh PO BID 90 Days Qty: 180 3RF Tradjenta 5 mg tablet 5 mg PO DAILY Qty: 30 6RF ipratropium-albuterol 0.5 mg-3 mg(2.5 mg base)/3 mL solution for nebulization 3 ml inhalation Q6H PRN (Reason: for wheezing) 30 Days Qty: 90 3RF Lantus Solostar U-100 Insulin 100 unit/mL (3 mL) insulin pen 25 unit subcut QPM 90 Days Qty: 22.5 3RF Label Comments: pt took 15 units yesterday pramipexole 0.125 mg tablet 0.125 mg PO BEDTIME 90 Days Qty: 90 1RF tamsulosin 0.4 mg capsule 0.4 mg PO DAILY Qty: 90 1RF omeprazole 20 mg capsule,delayed release(DR/EC) 20 mg PO BID Qty: 180 2RF Combivent Respimat 20-100 mcg/actuation mist 1 puff inhalation Q6H PRN (Reason: wheezing) 30 Days Qty: 4 4RF lisinopril 20 mg tablet 20 mg PO DAILY 90 Days Qty: 90 1RF rosuvastatin 20 mg tablet 20 mg PO DAILY 90 Days Qty: 90 1RF sodium polystyrene sulfonate Powder 30 g PO MOFR PRN (Reason: high potassium) triamcinolone acetonide 0.1 % ointment 1 appl topical BID 7 Days Qty: 30 0RF cyclobenzaprine 10 mg tablet 10 mg PO TID PRN (Reason: muscle spasm) Qty: 10 0RF acetaminophen [Tylenol] 325 mg capsule 650 mg PO Q4H PRN (Reason: pain) Qty: 30 0RF Otezla 30 mg tablet 30 mg PO BID (DME) diabetic shoes and inserts 9 See Rx Instructions .Route .MEDSUPPLY Qty: 1 0RF Rx Instructions: As directed clotrimazole-betamethasone 1-0.05 % cream 1 appl topical BID Qty: 15 0RF amlodipine 5 mg tablet 5 mg PO DAILY 90 Days Qty: 90 1RF gabapentin 300 mg capsule 600 mg PO DAILY 90 Days Qty: 180 3RF Interventions: ED Discharge Assessment Last Done: 11/17/22 18:38 Discharge Date/Time: 11/17/22 18:39
[2022-11-17 14:05] LABS: MANUAL DIFF FLAG NO
[2022-11-17 14:08] LABS: Basophils Absolute Auto 0.1 X10*3/uL (0.0-0.2); Basophils Percent Auto 0.6 % (0-2); Eosinophils Absolute Auto 1.1 X10*3/uL (0.0-0.4); Eosinophils Percent Auto 10.1 % (0-4); Hematocrit 44.3 % (42.0-52.0); Hemoglobin 14.5 g/dl (14.0-18.0); Imm Gran Abs Auto 0.05 X10*3/uL (0.00-0.03); Imm Gran Pct Auto 0.5 % (0.0-0.4); Lymphocytes Absolute Auto 2.4 X10*3/uL (1.2-4.9); Lymphocytes Percent Auto 22.3 % (20-40); Mean Corpuscular HGB Conc 32.7 g/dl (31.0-36.0); Mean Corpuscular Hemoglobin 29.9 pg (27.0-33.0); Mean Corpuscular Volume 91.3 fL (80.0-98.0); Mean Platelet Volume 9.9 fL (9.4-12.4); Monocytes Percent Auto 9.2 % (2-11); Neutrophils Percent Auto 57.3 % (45-73); Platelet Count 250 X10*3/uL (160-400); Red Blood Count 4.85 X10*6/uL (4.60-5.80); Red Cell Distribution Width 13.4 % (11.0-16.0); White Blood Count 10.5 X10*3/uL (4.8-10.8)
[2022-11-17 14:35] LABS: Alanine Aminotransferase 23 U/L (0-40); Albumin Level 4.4 g/dL (3.5-5.0); Alkaline Phosphatase 53 U/L (39-117); Anion Gap 15 (12-20); Aspartate Amino Transferase 21 U/L (5-37); Bilirubin Total 0.4 mg/dL (0.0-1.0); Blood Urea Nitrogen 23 mg/dL (9-16); Calcium 9.1 mg/dL (8.4-10.2); Carbon Dioxide 20 mmol/L (22-29); Chloride 108 mmol/L (96-108); Creatinine Clr Calc Pharmacy 49.5; Estimated Glomerular Filt Rate 49; Glucose Random 134 mg/dL (60-115); Magnesium 2.1 mg/dL (1.6-2.6); Potassium 5.5 mmol/L (3.3-5.1); Sodium 137 mmol/L (135-145); Total Protein 7.6 g/dL (6.5-8.0)
[2022-11-17 14:45] LABS: Influenza A PCR NEGATIVE (Negative); Influenza B PCR NEGATIVE (Negative); Resp Syncy Virus RNA Qual PCR NEGATIVE (Negative); SARS COV2 PCR INHOUSE NEGATIVE (Negative)
== END 2022-11-17 18:39 | disposition left against medical advice (07) ==
PROVIDERS: Physician Assistant Medical; Emergency Provider Emergency Medicine; PCP Internal Medicine
DX: E87.5 Hyperkalemia (principal); R51.9 Headache, unspecified; R05.9 Cough, unspecified; M54.2 Cervicalgia; E11.9 Type 2 diabetes mellitus without complications; N17.9 Acute kidney failure, unspecified; I10 Essential (primary) hypertension; F17.210 Nicotine dependence, cigarettes, uncomplicated; Z20.822 Contact with and (suspected) exposure to COVID-19; Z20.828 Contact with and (suspected) exposure to other viral communicable diseases; Z79.899 Other long term (current) drug therapy; Z71.6 Tobacco abuse counseling; Z79.4 Long term (current) use of insulin
CPT/HCPCS: 0241U; 36415; 70450; 71046; 72125; 80053; 83735; 85025; 99282; 99284

== ENCOUNTER 2022-11-21 10:36 | Outpatient (REF) | payer OTHER, SELFPAY ==
[2022-11-21 11:35] LABS: Alanine Aminotransferase 19 U/L (0-40); Albumin Level 4.3 g/dL (3.5-5.0); Alkaline Phosphatase 55 U/L (39-117); Anion Gap 14 (12-20); Aspartate Amino Transferase 16 U/L (5-37); Bilirubin Total 0.5 mg/dL (0.0-1.0); Blood Urea Nitrogen 22 mg/dL (9-16); Calcium 9.7 mg/dL (8.4-10.2); Carbon Dioxide 22 mmol/L (22-29); Chloride 105 mmol/L (96-108); Cholesterol 155 mg/dL; Estimated Glomerular Filt Rate 53; Glucose Fasting 137 mg/dL (60-99); Glucose Random 135 mg/dL (60-115); HDL Cholesterol 46 mg/dL; LDL Cholesterol Calculated 88 mg/dl; Potassium 5.3 mmol/L (3.3-5.1); Sodium 136 mmol/L (135-145); Total Protein 7.3 g/dL (6.5-8.0); Triglycerides 109 mg/dL
[2022-11-21 11:43] LABS: Creatinine Urine 40.02 mg/dL; Microalbum/Creatinine Ratio Ur 59.9 ug/mg cr
== END 2022-11-21 10:37 | disposition home or self-care (01) ==
LOC: HO.LAB 10:36
PROVIDERS: PCP Internal Medicine; Visit Provider Internal Medicine
DX: E87.5 Hyperkalemia (principal); E11.9 Type 2 diabetes mellitus without complications; E78.00 Pure hypercholesterolemia, unspecified; E78.5 Hyperlipidemia, unspecified
CPT/HCPCS: 36415; 80053; 80061; 82043

== ENCOUNTER → 2023-01-12 07:59 | Outpatient (BNVA) | payer OTHER, SELFPAY | PROVIDERS: PCP Internal Medicine; Visit Provider Student in an Organized Health Care Education/Training Program | DX: M65.322 Trigger finger, left index finger (principal); M65.332 Trigger finger, left middle finger; L40.50 Arthropathic psoriasis, unspecified; Z79.631 Long term (current) use of antimetabolite agent | CPT/HCPCS: 20550; 99202 ==

== ENCOUNTER 2023-01-13 08:27 | Outpatient (REF) | payer OTHER, SELFPAY ==
[2023-01-13 08:48] LABS: MANUAL DIFF FLAG NO
[2023-01-13 09:16] LABS: Basophils Absolute Auto 0.1 X10*3/uL (0.0-0.2); Basophils Percent Auto 0.6 % (0-2); Eosinophils Absolute Auto 1.2 X10*3/uL (0.0-0.4); Eosinophils Percent Auto 12.3 % (0-4); Hematocrit 43.5 % (42.0-52.0); Hemoglobin 14.2 g/dl (14.0-18.0); Imm Gran Abs Auto 0.05 X10*3/uL (0.00-0.03); Imm Gran Pct Auto 0.5 % (0.0-0.4); Mean Corpuscular HGB Conc 32.6 g/dl (31.0-36.0); Mean Corpuscular Hemoglobin 29.5 pg (27.0-33.0); Mean Corpuscular Volume 90.2 fL (80.0-98.0); Mean Platelet Volume 9.9 fL (9.4-12.4); Monocytes Absolute Auto 0.9 X10*3/uL (0.1-1.2); Monocytes Percent Auto 8.8 % (2-11); Neutrophils Absolute Auto 5.7 x10*3/uL (2.0-8.3); Neutrophils Percent Auto 57.8 % (45-73); Platelet Count 226 X10*3/uL (160-400); Red Blood Count 4.82 X10*6/uL (4.60-5.80); Red Cell Distribution Width 13.6 % (11.0-16.0); White Blood Count 9.9 X10*3/uL (4.8-10.8)
[2023-01-13 09:43] LABS: Anion Gap 10 (12-20)
[2023-01-13 09:53] LABS: Alanine Aminotransferase 21 U/L (0-40); Albumin Level 4.4 g/dL (3.5-5.0); Alkaline Phosphatase 50 U/L (39-117); Aspartate Amino Transferase 17 U/L (5-37); Bilirubin Total 0.5 mg/dL (0.0-1.0); Blood Urea Nitrogen 23 mg/dL (9-16); C Reactive Protein 0.19 mg/dL (< or = 0.50); Calcium 9.2 mg/dL (8.4-10.2); Carbon Dioxide 23 mmol/L (22-29); Chloride 110 mmol/L (96-108); Estimated Glomerular Filt Rate 48; Glucose Random 151 mg/dL (60-115); Potassium 5.4 mmol/L (3.3-5.1); Rheumatoid Factor < 13.0 IU/mL (<15.0); Sodium 140 mmol/L (135-145); Total Protein 7.2 g/dL (6.5-8.0)
[2023-01-13 10:08] LABS: Erythrocyte Sedimentation Rate 14 MM/HR (0-15)
[2023-01-15 21:48] LABS: TS Negative Control Passed; TS Panel A 0; TS Panel B 0; TS Positive Control Passed; TSpotTB Negative (Negative)
[2023-01-17 11:44] LABS: Cyclic Citrullinated Peptide <16 UNITS
[2023-01-17 23:43] LABS: Prot Elec - Albumin 4.3 g/dL (3.8-4.8); Prot Elec - Alpha1 0.3 g/dL (0.2-0.3); Prot Elec - Beta 1 0.5 g/dL (0.4-0.6); Prot Elec - Beta 2 0.4 g/dL (0.2-0.5); Prot Elec - Gamma 1.1 g/dL (0.8-1.7); Prot Elec - Total Protein 7.6 g/dL (6.1-8.1)
[2023-01-18 09:08] LABS: IgA 471 mg/dL (70-320); IgG 1091 mg/dL (600-1540); IgM 58 mg/dL (50-300)
== END 2023-01-13 08:28 | disposition home or self-care (01) ==
LOC: HO.LAB 08:27
PROVIDERS: Student in an Organized Health Care Education/Training Program; PCP Internal Medicine; Visit Provider Internal Medicine
DX: Z11.7 Encounter for testing for latent tuberculosis infection (principal); M25.541 Pain in joints of right hand; L40.50 Arthropathic psoriasis, unspecified; Z79.631 Long term (current) use of antimetabolite agent
CPT/HCPCS: 36415; 80053; 82784; 84165; 85025; 85652; 86140; 86200; 86334; 86431; 86481

== ENCOUNTER 2023-03-09 10:43 | Outpatient (REF) | payer OTHER, SELFPAY ==
[2023-03-09 10:59] LABS: MANUAL DIFF FLAG NO
[2023-03-09 11:52] LABS: Basophils Absolute Auto 0.1 X10*3/uL (0.0-0.2); Basophils Percent Auto 0.6 % (0-2); Eosinophils Absolute Auto 1.2 X10*3/uL (0.0-0.4); Eosinophils Percent Auto 13.6 % (0-4); Hematocrit 43.4 % (42.0-52.0); Hemoglobin 13.7 g/dl (14.0-18.0); Imm Gran Abs Auto 0.09 X10*3/uL (0.00-0.03); Lymphocytes Absolute Auto 1.6 X10*3/uL (1.2-4.9); Mean Corpuscular HGB Conc 31.6 g/dl (31.0-36.0); Mean Corpuscular Hemoglobin 30.2 pg (27.0-33.0); Mean Corpuscular Volume 95.8 fL (80.0-98.0); Mean Platelet Volume 10.1 fL (9.4-12.4); Monocytes Absolute Auto 0.8 X10*3/uL (0.1-1.2); Neutrophils Absolute Auto 5.2 x10*3/uL (2.0-8.3); Neutrophils Percent Auto 57.8 % (45-73); Platelet Count 227 X10*3/uL (160-400); Red Blood Count 4.53 X10*6/uL (4.60-5.80); Red Cell Distribution Width 14.7 % (11.0-16.0); White Blood Count 8.9 X10*3/uL (4.8-10.8)
[2023-03-09 12:07] LABS: Alanine Aminotransferase 27 U/L (0-40); Albumin Level 4.5 g/dL (3.5-5.0); Alkaline Phosphatase 53 U/L (39-117); Anion Gap 14 (12-20); Aspartate Amino Transferase 19 U/L (5-37); Bilirubin Total 0.3 mg/dL (0.0-1.0); Blood Urea Nitrogen 22 mg/dL (9-16); C Reactive Protein 0.17 mg/dL (< or = 0.50); Calcium 9.6 mg/dL (8.4-10.2); Carbon Dioxide 22 mmol/L (22-29); Chloride 109 mmol/L (96-108); Estimated Glomerular Filt Rate 50; Glucose Random 206 mg/dL (60-115); Potassium 5.7 mmol/L (3.3-5.1); Sodium 139 mmol/L (135-145); Total Protein 7.7 g/dL (6.5-8.0)
[2023-03-09 12:54] LABS: Erythrocyte Sedimentation Rate 13 MM/HR (0-15)
== END 2023-03-09 10:44 | disposition home or self-care (01) ==
LOC: HO.LAB 10:43
PROVIDERS: PCP Internal Medicine; Visit Provider Student in an Organized Health Care Education/Training Program
DX: Z13.89 Encounter for screening for other disorder (principal); Z79.631 Long term (current) use of antimetabolite agent
CPT/HCPCS: 36415; 80053; 85025; 85652; 86140

== ENCOUNTER 2023-04-13 08:11 | Outpatient (REF) | payer OTHER, SELFPAY ==
--- NOTE | ~2023-04-13 | CT_ITS ---
EXAMINATION: CT CHEST SCREENING CLINICAL INFORMATION: Current smoker. 60 pack year history. COMPARISON: Previous chest CT most recent January 2022 TECHNIQUE: Multidetector volumetric CT imaging of the chest is performed without contrast using low dose technique. Additional 2D coronal and sagittal reformatted images and axial 3D maximum intensity projection (MIP) images are generated on the CT workstation. This CT examination was performed using dose optimization techniques as appropriate, variously including the following: *Automated exposure control *Adjustment of mA and/or kV according to patient size (this includes techniques or standardized protocols for targeted exams where dose is matched to indication/reason for exam; i.e. extremities or head) *Use of iterative reconstruction technique DLP: 53 mGy-cm FINDINGS: LUNGS: Mild emphysema. Probable mild airways disease in the anterior segment of the right upper lobe near the minor fissure clustered peribronchial nodules and increased peribronchial attenuation for example axial image 2:15 series 5. Stable small peripheral or subpleural calcified right upper lobe nodule adjacent to the mediastinum axial image 2:30 series 5. The lungs are otherwise clear. No endobronchial or endotracheal lesion. MEDIASTINUM: The mediastinum is normal. CORONARY ARTERY CALCIFICATION: Mild PLEURA: There is no pleural effusion. No pleural mass or thickening. AXILLA: No lymphadenopathy. UPPER ABDOMEN: Gallbladder has been removed. There is diverticulosis of the colon. OSSEOUS STRUCTURES: Unremarkable. Degenerative changes of the spine. CT/CT lung screening IMPRESSION: Emphysema. Stable probable mild airways disease in the right upper lobe and calcified pulmonary nodule. ASSESSMENT: Lung-RADS category 2: Benign RECOMMENDATION: Annual low-dose chest CT follow-up recommended.
== END 2023-04-13 08:12 | disposition home or self-care (01) ==
LOC: HO.CT 08:11
PROVIDERS: PCP Internal Medicine; Visit Provider Physician Assistant Medical
DX: Z12.2 Encounter for screening for malignant neoplasm of respiratory organs (principal); F17.210 Nicotine dependence, cigarettes, uncomplicated
CPT/HCPCS: 71271

== ENCOUNTER 2023-05-10 08:37 | Outpatient (AMB) | payer OTHER, SELFPAY ==
[2023-05-10 08:52] VITALS: BP 122/64; PULSE 87; TEMP 36.7; O2SAT 96; BMI 27.9
--- NOTE | 2023-05-10 08:52 | A.OFFVIS_ITS ---
Intake Vital Signs 05/10/23 08:52 Height 5 ft 7 in Weight 177 lb 14.609 oz BMI 27.9 BP 122/64 Blood Pressure Location Rt brachial Position Sitting Pulse 87 Pulse Source Pulse Oximeter Temp 98.1 F Temp Source Skin Pulse Oximetry (%) 96 Intake Visit Reasons: PsA Intake Note: Pt seen today for PsA follow up. Still having right shoulder pain. Reports s/p cortisone injections 3x, still has pain. Fundraising Specialist Required: Yes Fundraising Specialist Language: Associate Professor Of Psychology Name: Lolita Moser444 Information Interpreted: clinical only Accompanied by: Self / Same As Patient Allergies doxycycline Allergy (Intermediate, Verified 05/10/23 08:54) Itching levofloxacin Allergy (Intermediate, Verified 05/10/23 08:54) Itching metformin Allergy (Intermediate, Verified 05/10/23 08:54) diarrhea morphine [MORPHINE] Allergy (Intermediate, Verified 05/10/23 08:54) ITCHING tetracycline Allergy (Intermediate, Verified 05/10/23 08:54) Itching cefazolin Adverse Reaction (Mild, Verified 05/10/23 08:54) Diarrhea, itchy Medication List - Last Reconciled 05/10/23 by Jaqueline Loaiza MD acetaminophen (Tylenol) 650 mg (2 x 325 mg) PO Q4H PRN albuterol sulfate 2.5 mg (3 mL) inhalation Q6H PRN 30 days amlodipine 5 mg PO DAILY 90 days apremilast (Otezla) 30 mg PO BID aspirin 81 mg PO DAILY atorvastatin 20 mg PO BEDTIME 90 days blood sugar diagnostic (ZenpriseTouch Verio test strips) Use 3 times a day to test BG daily for 30 days clotrimazole-betamethasone 1-0.05 % 1 appl topical BID cyclobenzaprine 10 mg PO TID PRN [diabetic shoes and inserts As directed] empagliflozin (Jardiance) 25 mg PO QAM fluticasone propion-salmeterol 500-50 mcg/dose (Wixela Inhub) 1 inh PO BID 90 days folic acid 1 mg PO DAILY gabapentin 600 mg (2 x 300 mg) PO DAILY 90 days insulin glargine (Lantus Solostar U-100 Insulin) 25 units (0.25 mL) subcut QPM 90 days ipratropium-albuterol 0.5 mg-3 mg(2.5 mg base)/3 mL 3 mL inhalation Q6H PRN 30 days ipratropium-albuterol 20-100 mcg/actuation (Combivent Respimat) 1 puff inhalation Q6H PRN 30 days lancets ([employer] Delica Lancets) Check by finger stick route 4 times every day linagliptin (Tradjenta) 5 mg PO DAILY lisinopril 20 mg PO DAILY 90 days methotrexate sodium 12.5 mg (5 x 2.5 mg) PO QWEEK nebulizers (AeroEclipse II Nebulizer) As directed omeprazole 20 mg PO BID [[employer]uch glucometer As directed] pen needle, diabetic (BD Ultra-Fine Short Pen Needle) As directed daily with Lantus pramipexole 0.125 mg PO BEDTIME 90 days sodium polystyrene sulfonate 30 grams PO MOFR PRN tamsulosin 0.4 mg PO DAILY triamcinolone acetonide 0.1% 1 appl topical BID 1 week Ventolin HFA 90 mcg/actuation (albuterol sulfate) 2 puffs inhalation Q6H PRN 30 days NS HPI HPI Comments History of Present Illness Details 72-year-old male with psoriasis returns for follow-up. Last visit patient received left 2nd and 3rd trigger finger injection. States that he has complete relief of triggering in his left hand. He also had right wrist swelling and tenderness. That has also resolved. He took methotrexate for about 2 months, he was not aware to keep taking it. He does not recall any side effects related to methotrexate. States however that he continues to have right shoulder pain and weakness. This has been ongoing for many years. A few years ago patient received a steroid injection in his right shoulder which lasted him for 5 years. He received 2 steroid injections for his right shoulder this year without much relief. States that his psoriasis is very well controlled. Taking Otezla Initial history: This is a 72-year-old male with a past medical history of psoriasis presents for evaluation of multiple joint pain. Three months ago patient started having locking of his left index and middle fingers. Over the last 3 weeks he has been having pain in his right wrist. The pain is worse at night associated with swelling and morning stiffness. He takes Tylenol without relief. States that he has had psoriasis for many years, at least 10 years. Was started on Otezla by Dermatology about a year ago. He denies any back pain. [facility] Medical History Anemia Asthma CKD stage 3 due to type 2 diabetes mellitus Diabetes mellitus, with long-term current use of insulin Essential hypertension GERD (gastroesophageal reflux disease) Hypertensive retinopathy Loss of hearing Mild persistent asthma Nicotine dependence, cigarettes, uncomplicated Non-rheumatic aortic stenosis Precordial chest pain Pure hypercholesterolemia Restless leg syndrome Tubular adenoma of colon Surgical History History of cholecystectomy History of colonoscopy History of esophagogastroduodenoscopy (EGD) History of implantation of penile prosthesis Family History Father No problems noted. Mother No problems noted. Family/Other FH: mental illness Brother In good health Sister In good health Son In good health Daughter In good health Other Mental health disorder Social History Household Members: None Housing: Apartment Do you presently have visiting nurse or other home services: No Alcohol intake: current Alcohol intake frequency: holidays/special occasions only Alcohol type: hard liquor Patient Tobacco Use Status: Current everyday Tobacco user Tobacco use type: Cigarette Cigarettes Per Day: 10 e-Cigarette/Vaping Use: Never Used Second Hand Smoke Exposure: No service: No Current occupational status: disabled Cognitive needs: No Hearing needs: No Vision needs: Yes Review of Systems Musc Reports arthralgias and Reports muscle weakness Skin/Breast Denies rash Physical Exam Vital Signs: Last Vital Signs Temp 98.1 F 05/10/23 08:52 Pulse 87 05/10/23 08:52 BP 122/64 05/10/23 08:52 Pulse Ox 96 05/10/23 08:52 BMI result Body Mass Index 27.9 Const General: cooperative, healthy appearing and comfortable Nutritional Appearance: overweight Orientation/consciousness: patient oriented x3 HEENT Head: Yes normocephalic and Yes atraumatic Mouth: moist mucous membranes Resp Effort & Inspection: normal respiratory effort and able to speak in complete sentences Skin Other: No psoriasis patches noted today Neuro General: patient oriented x3 Extrem Other: No swollen or tender joints today No triggering could be elicited in fingers of both hands No shoulder pain with passive range of motion. Patient cannot keep his right hand up with empty can test. Assessment & Plan Assessment & Plan (1) Psoriatic arthritis: Code(s): L40.50 - Arthropathic psoriasis, unspecified Plan: This is a 72-year-old male with psoriasis who presents for follow-up. Last visit patient had multiple trigger fingers and right wrist synovitis. This was likely an episode of psoriatic arthritis. He received steroid injection for left 2nd and 3rd trigger fingers with resolution of the trigger fingers and right wrist swelling. He also took methotrexate for 2 months. Today patient has no active synovitis and trigger fingers resolved. Will hold off on continuing methotrexate at this point. Will monitor the patient for the development of psoriatic arthritis. Patient has been having right shoulder pain and weakness for years. Will check a right shoulder x-ray (2) Trigger finger of left hand: Code(s): M65.30 - Trigger finger, unspecified finger Qualifiers: Trigger finger location: index finger Qualified Code(s): M65.322 - Trigger finger, left index finger Plan: Left 2nd and 3rd trigger fingers were injected in clinic 01/22 with resolution. Injections can be repeated in the future if needed Plan I spent 29 minutes reviewing patient's chart, evaluating patient, ordering diagnostic workup, counseling patient and documenting in the chart Orders: Orders XR shoulder LT min 2V Today M25.511 - Pain in right shoulder, M25.512 - Pain in left shoulder XR shoulder RT min 2V Today M25.511 - Pain in right shoulder, M25.512 - Pain in left shoulder Coding Level of Care Code Est Pt Level 4 (78424) Diagnoses Psoriatic arthritis L40.50 Trigger finger of left hand M65.322 Trigger finger location: index finger
== END 2023-05-10 09:26 | disposition home or self-care (01) ==
PROVIDERS: PCP Internal Medicine; Visit Provider Student in an Organized Health Care Education/Training Program
DX: L40.50 Arthropathic psoriasis, unspecified (principal); M65.322 Trigger finger, left index finger
CPT/HCPCS: 99214

== ENCOUNTER → 2023-05-10 08:37 | Outpatient (BNVA) | payer OTHER, SELFPAY | PROVIDERS: Visit Provider Student in an Organized Health Care Education/Training Program | DX: L40.50 Arthropathic psoriasis, unspecified (principal); M65.322 Trigger finger, left index finger | CPT/HCPCS: 99212 ==

== ENCOUNTER 2023-06-09 08:42 | Outpatient (REF) | payer OTHER, SELFPAY ==
--- NOTE | ~2023-06-09 | XR_ITS ---
EXAMINATION: XR SHOULDER, RIGHT CLINICAL INFORMATION: Pain. COMPARISON: None available. TECHNIQUE: AP external rotation, Grashey, scapular Y, and axillary views of the right shoulder. FINDINGS: Bony alignment and mineralization are normal. The glenohumeral joint is intact and shows mild peripheral osteophyte formation. The acromioclavicular and coracoclavicular intervals are normal. There is cortical irregularity of the greater tuberosity of the proximal right humerus. No fracture or dislocation is seen. There is no soft tissue calcification or foreign body. No right pneumothorax is seen. XR/XR shoulder RT min 2V IMPRESSION: 1. No fracture or dislocation is seen. 2. There is mild osteoarthritic change of the right glenohumeral joint. 3. Findings are consistent with right rotator cuff impingement. No jessica calcific tendinitis is noted. EXAMINATION: XR SHOULDER, LEFT CLINICAL INFORMATION: Pain. COMPARISON: None available. TECHNIQUE: AP external rotation, Grashey, scapular Y, and axillary views of the left shoulder. FINDINGS: Bony alignment and mineralization are normal. The glenohumeral joint is intact. The acromioclavicular and coracoclavicular intervals are normal. As with the contralateral side, there is cortical irregularity of the greater tuberosity of the proximal left humerus. No fracture or dislocation is seen. There is no discrete soft tissue calcifications or foreign body. No left pneumothorax is seen. IMPRESSION: 1. No fracture or dislocation is seen. 2. Findings are consistent with left rotator cuff impingement, without jessica calcific tendinitis.
--- NOTE | ~2023-06-09 | XR_ITS ---
EXAMINATION: XR SHOULDER, RIGHT CLINICAL INFORMATION: Pain. COMPARISON: None available. TECHNIQUE: AP external rotation, Grashey, scapular Y, and axillary views of the right shoulder. FINDINGS: Bony alignment and mineralization are normal. The glenohumeral joint is intact and shows mild peripheral osteophyte formation. The acromioclavicular and coracoclavicular intervals are normal. There is cortical irregularity of the greater tuberosity of the proximal right humerus. No fracture or dislocation is seen. There is no soft tissue calcification or foreign body. No right pneumothorax is seen. XR/XR shoulder LT min 2V IMPRESSION: 1. No fracture or dislocation is seen. 2. There is mild osteoarthritic change of the right glenohumeral joint. 3. Findings are consistent with right rotator cuff impingement. No jessica calcific tendinitis is noted. EXAMINATION: XR SHOULDER, LEFT CLINICAL INFORMATION: Pain. COMPARISON: None available. TECHNIQUE: AP external rotation, Grashey, scapular Y, and axillary views of the left shoulder. FINDINGS: Bony alignment and mineralization are normal. The glenohumeral joint is intact. The acromioclavicular and coracoclavicular intervals are normal. As with the contralateral side, there is cortical irregularity of the greater tuberosity of the proximal left humerus. No fracture or dislocation is seen. There is no discrete soft tissue calcifications or foreign body. No left pneumothorax is seen. IMPRESSION: 1. No fracture or dislocation is seen. 2. Findings are consistent with left rotator cuff impingement, without jessica calcific tendinitis.
== END 2023-06-09 08:43 | disposition home or self-care (01) ==
LOC: HO.XRAY 08:42
PROVIDERS: PCP Internal Medicine; Visit Provider Student in an Organized Health Care Education/Training Program
DX: M25.511 Pain in right shoulder (principal); M25.512 Pain in left shoulder
CPT/HCPCS: 73030

== ENCOUNTER 2023-07-14 08:35 | Outpatient (REF) | payer OTHER, SELFPAY ==
[2023-07-14 10:26] LABS: Creatinine Urine 132.69 mg/dL; Microalbum/Creatinine Ratio Ur 82.1 ug/mg cr (<30)
[2023-07-14 10:33] LABS: Alanine Aminotransferase 16 U/L (0-40); Albumin Level 4.3 g/dL (3.5-5.0); Alkaline Phosphatase 44 U/L (39-117); Anion Gap 15 (12-20); Aspartate Amino Transferase 17 U/L (5-37); Bilirubin Total 0.4 mg/dL (0.0-1.0); Blood Urea Nitrogen 24 mg/dL (9-16); Calcium 9.7 mg/dL (8.4-10.2); Carbon Dioxide 19 mmol/L (22-29); Chloride 109 mmol/L (96-108); Cholesterol 122 mg/dL (<200); Estimated Glomerular Filt Rate 55; Glucose Fasting 85 mg/dL (60-99); HDL Cholesterol 47 mg/dL (>40); LDL Cholesterol Calculated 63 mg/dL (<100); Potassium 4.6 mmol/L (3.3-5.1); Sodium 138 mmol/L (135-145); Total Protein 7.6 g/dL (6.5-8.0); Triglycerides 62 mg/dL (<150)
[2023-07-14 10:41] LABS: Vitamin D 25-OH Total 26.2 ng/mL (>30)
== END 2023-07-14 08:36 | disposition home or self-care (01) ==
LOC: HO.LAB 08:35
PROVIDERS: PCP Internal Medicine; Visit Provider Internal Medicine
DX: L40.50 Arthropathic psoriasis, unspecified (principal); E78.5 Hyperlipidemia, unspecified; E55.9 Vitamin D deficiency, unspecified; E11.65 Type 2 diabetes mellitus with hyperglycemia; Z79.4 Long term (current) use of insulin
CPT/HCPCS: 36415; 80053; 80061; 82043; 82306; 82570

== ENCOUNTER 2023-07-20 11:26 | Outpatient (AMB) | payer OTHER, SELFPAY ==
[2023-07-20 11:28] VITALS: BP 124/62; PULSE 106; TEMP 36.3; O2SAT 96; BMI 27.7
--- NOTE | 2023-07-20 11:28 | A.OFFVIS_ITS ---
Intake Vital Signs 07/20/23 11:28 Height 5 ft 7 in Weight 176 lb 12.972 oz BMI 27.7 BP 124/62 Blood Pressure Location Rt brachial Position Sitting Pulse 106 H Pulse Source Pulse Oximeter Temp 97.4 F Temp Source Skin Pulse Oximetry (%) 96 Intake Visit Reasons: PsA Intake Note: Pt presents today for follow up and x-ray results. MTX on hold. 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 Accompanied by: Self / Same As Patient Allergies doxycycline Allergy (Intermediate, Verified 07/20/23 11:34) Itching levofloxacin Allergy (Intermediate, Verified 07/20/23 11:34) Itching metformin Allergy (Intermediate, Verified 07/20/23 11:34) diarrhea morphine [MORPHINE] Allergy (Intermediate, Verified 07/20/23 11:34) ITCHING tetracycline Allergy (Intermediate, Verified 07/20/23 11:34) Itching cefazolin Adverse Reaction (Mild, Verified 07/20/23 11:34) Diarrhea, itchy Medication List - Last Reconciled 07/20/23 by Jaqueline Loaiza MD acetaminophen (Tylenol) 650 mg (2 x 325 mg) PO Q4H PRN albuterol sulfate 2.5 mg (3 mL) inhalation Q6H PRN 30 days amlodipine 5 mg PO DAILY 90 days apremilast (Otezla) 30 mg PO BID aspirin 81 mg PO DAILY atorvastatin 20 mg PO BEDTIME 90 days blood sugar diagnostic ([employer] Verio test strips) Use 3 times a day to test BG daily for 30 days clotrimazole-betamethasone 1-0.05 % 1 appl topical BID cyclobenzaprine 10 mg PO TID PRN [diabetic shoes and inserts As directed] empagliflozin (Jardiance) 25 mg PO QAM fluticasone propion-salmeterol 500-50 mcg/dose (Wixela Inhub) 1 inh PO BID 90 days folic acid 1 mg PO DAILY gabapentin 600 mg (2 x 300 mg) PO DAILY 90 days insulin glargine (Lantus Solostar U-100 Insulin) 25 units (0.25 mL) subcut QPM 90 days ipratropium-albuterol 0.5 mg-3 mg(2.5 mg base)/3 mL 3 mL inhalation Q6H PRN 30 days ipratropium-albuterol 20-100 mcg/actuation (Combivent Respimat) 1 puff inhalation Q6H PRN 30 days lancets ([employer] Delica Lancets) Check by finger stick route 4 times every day linagliptin (Tradjenta) 5 mg PO DAILY lisinopril 20 mg PO DAILY 90 days nebulizers (AeroEclipse II Nebulizer) As directed omeprazole 20 mg PO BID [onetouch glucometer As directed] pen needle, diabetic (BD Ultra-Fine Short Pen Needle) As directed daily with Lantus pramipexole 0.125 mg PO BEDTIME 90 days sodium polystyrene sulfonate 30 grams PO MOFR PRN tamsulosin 0.4 mg PO DAILY triamcinolone acetonide 0.1% 1 appl topical BID 1 week Ventolin HFA 90 mcg/actuation (albuterol sulfate) 2 puffs inhalation Q6H PRN 30 days NS HPI HPI Comments History of Present Illness Details 72-year-old male with psoriasis returns for follow-up. Patient's only complaint today is right shoulder pain, especially when sleeping on his right side at night. States that he received an injection in the past that lasted 5 years, most recent injection was a year ago and did not last too long. States that his psoriasis is well controlled with Otezla, he has a skin rash on his right cheek that started recently. Initial history: This is a 72-year-old male with a past medical history of psoriasis presents for evaluation of multiple joint pain. Three months ago patient started having locking of his left index and middle fingers. Over the last 3 weeks he has been having pain in his right wrist. The pain is worse at night associated with swelling and morning stiffness. He takes Tylenol without relief. States that he has had psoriasis for many years, at least 10 years. Was started on Otezla by Dermatology about a year ago. He denies any back pain. [facility] Medical History (Updated 07/20/23 @ 12:06 by Jaqueline Loaiza MD) Hypertensive retinopathy Nicotine dependence, cigarettes, uncomplicated Tubular adenoma of colon Restless leg syndrome Mild persistent asthma CKD stage 3 due to type 2 diabetes mellitus Diabetes mellitus, with long-term current use of insulin Pure hypercholesterolemia GERD (gastroesophageal reflux disease) Precordial chest pain Essential hypertension Non-rheumatic aortic stenosis Loss of hearing Anemia Asthma Surgical History History of esophagogastroduodenoscopy (EGD) History of colonoscopy History of cholecystectomy History of implantation of penile prosthesis Family History Father No problems noted. Mother No problems noted. Family/Other FH: mental illness Brother In good health Sister In good health Son In good health Daughter In good health Other Mental health disorder Social History Household Members: None Housing: Apartment Do you presently have visiting nurse or other home services: No Alcohol intake: current Alcohol intake frequency: holidays/special occasions only Alcohol type: hard liquor Patient Tobacco Use Status: Current everyday Tobacco user Tobacco use type: Cigarette Cigarettes Per Day: 10 e-Cigarette/Vaping Use: Never Used Second Hand Smoke Exposure: No service: No Current occupational status: disabled Cognitive needs: No Hearing needs: No Vision needs: Yes Review of Systems Musc Reports arthralgias, Reports limited range of motion and Reports stiffness Skin/Breast Reports rash Physical Exam Vital Signs: Last Vital Signs Temp 97.4 F 07/20/23 11:28 Pulse 106 H 07/20/23 11:28 BP 124/62 07/20/23 11:28 Pulse Ox 96 07/20/23 11:28 BMI result Body Mass Index 27.7 Const General: cooperative, healthy appearing and comfortable Nutritional Appearance: overweight Orientation/consciousness: patient oriented x3 HEENT Head: Yes normocephalic and Yes atraumatic Mouth: moist mucous membranes Resp Effort & Inspection: normal respiratory effort and able to speak in complete sentences Neuro General: patient oriented x3 Extrem Other: Positive empty can test on the right. No triggering could be elicited in fingers of both hands . No synovitis in both hands and wrists Right shoulder pain with full abduction Office Procedures Joint Injection/Drain Joint Injection/Drain Primary Site: right shoulder Prep: site was prepped using sterile technique and ethochloride spray was applied Injected: 40 mg of, Kenalog and other (2 mL of 1% lidocaine) Approach Used: posterolateral Procedure: The patient tolerated the procedure well Coding Details: The right shoulder was prepped ChloraPrep and alcohol. The subacromial space was injected with 40 mg of triamcinolone and 2 cc of lidocaine. Patient tolerated the procedure well no apparent immediate side effects. - Large joint Procedure code (CPT) selection complete Assessment & Plan Assessment & Plan (1) Psoriatic arthritis: Code(s): L40.50 - Arthropathic psoriasis, unspecified Plan: This is a 72-year-old male with psoriasis who presents for follow-up. in 12/2022 patient presented with multiple trigger fingers and right wrist synovitis. This was likely an episode of psoriatic arthritis. He received steroid injection for left 2nd and 3rd trigger fingers with resolution of the trigger fingers and right wrist swelling. He also took methotrexate for 2 months. Since then patient has had no active synovitis and trigger fingers have resolved. For now patient can continue with the Otezla which was prescribed by Dermatology for psoriasis. No need to add additional DMARDs at this point Follow-up in 3 months (2) Trigger finger of left hand: Code(s): M65.30 - Trigger finger, unspecified finger Qualifiers: Trigger finger location: index finger Qualified Code(s): M65.322 - Trigger finger, left index finger Plan: Left 2nd and 3rd trigger fingers were injected in clinic 01/22 with resolution. Injections can be repeated in the future if needed (3) Rotator cuff arthropathy of right shoulder: Code(s): M12.811 - Other specific arthropathies, not elsewhere classified, right shoulder Plan: Patient has history of rotator cuff tendinopathy for years. He received an injection years ago which lasted 5 years, he had another injection a year ago with short-lived relief. Patient not interested in physical therapy. With patient's consent, right subacromial space was injected with Kenalog in clinic today. Patient is diabetic and is warned about the potential of for hyperglycemia. Advised patient to get back home as soon as possible and watch hsi blood sugar over the coming 2- 3 days. Call the clinic or go to the hospital if his blood sugar is significantly elevated. If no relief by next visit, will refer patient to orthopedics Plan I spent 29 minutes reviewing patient's chart, evaluating patient, counseling patient and documenting in the chart Orders: Orders AMB Joint Injection/Aspiration Today M75.51 - Bursitis of right shoulder Coding Level of Care Code Est Pt Level 3 (68485) Diagnoses Psoriatic arthritis L40.50 Trigger index finger of left hand M65.322 Trigger finger location: index finger Rotator cuff arthropathy of right shoulder M12.811 CPT Codes Coding - 31207 Large joint: 14500 - Large joint ([id number])
== END 2023-07-20 12:03 | disposition home or self-care (01) ==
PROVIDERS: PCP Internal Medicine; Visit Provider Student in an Organized Health Care Education/Training Program
DX: L40.50 Arthropathic psoriasis, unspecified (principal); M65.322 Trigger finger, left index finger; M12.811 Other specific arthropathies, not elsewhere classified, right shoulder
CPT/HCPCS: 20610; 99213

== ENCOUNTER → 2023-07-20 11:26 | Outpatient (BNVA) | payer OTHER, SELFPAY | PROVIDERS: PCP Internal Medicine; Visit Provider Student in an Organized Health Care Education/Training Program | DX: M25.511 Pain in right shoulder (principal); L40.50 Arthropathic psoriasis, unspecified; M65.322 Trigger finger, left index finger; M12.811 Other specific arthropathies, not elsewhere classified, right shoulder | CPT/HCPCS: 20610; 99212 ==

== ENCOUNTER 2023-08-03 13:24 | Outpatient (AMB) | payer OTHER, SELFPAY ==
--- NOTE | 2023-08-03 13:26 | A.OFFPC_ITS ---
Vital Signs 08/03/23 13:29 Height 5 ft 7 in Weight 171 lb BMI 26.8 BP 112/60 Blood Pressure Location Lt brachial Position Sitting Pulse 97 Pulse Source Pulse Oximeter Pulse Oximetry (%) 97 Oxygen Delivery Method Room Air Intake Visit Reasons: dm Intake Note: Patient here for a follow up DM, c/o back and shoulder pain Section Weaver Required: No Accompanied by: Self / Same As Patient Allergies doxycycline Allergy (Intermediate, Verified 08/03/23 13:39) Itching levofloxacin Allergy (Intermediate, Verified 08/03/23 13:39) Itching metformin Allergy (Intermediate, Verified 08/03/23 13:39) diarrhea morphine [MORPHINE] Allergy (Intermediate, Verified 08/03/23 13:39) ITCHING tetracycline Allergy (Intermediate, Verified 08/03/23 13:39) Itching cefazolin Adverse Reaction (Mild, Verified 08/03/23 13:39) Diarrhea, itchy Medication List - Last Reconciled 08/03/23 by Sheba Corbett MD acetaminophen (Tylenol) 650 mg (2 x 325 mg) PO Q4H PRN albuterol sulfate 2.5 mg (3 mL) inhalation Q6H PRN 30 days amlodipine 5 mg PO DAILY 90 days apremilast (Otezla) 30 mg PO BID aspirin 81 mg PO DAILY atorvastatin 20 mg PO BEDTIME 90 days blood sugar diagnostic (CopaCastuch Verio test strips) Use 3 times a day to test BG daily for 30 days clotrimazole-betamethasone 1-0.05 % 1 appl topical BID cyclobenzaprine 10 mg PO TID PRN [diabetic shoes and inserts As directed] empagliflozin (Jardiance) 25 mg PO QAM fluticasone propion-salmeterol 500-50 mcg/dose (Wixela Inhub) 1 inh PO BID 90 days folic acid 1 mg PO DAILY gabapentin 600 mg (2 x 300 mg) PO DAILY 90 days insulin glargine (Lantus Solostar U-100 Insulin) 25 units (0.25 mL) subcut QPM 90 days ipratropium-albuterol 0.5 mg-3 mg(2.5 mg base)/3 mL 3 mL inhalation Q6H PRN 30 days ipratropium-albuterol 20-100 mcg/actuation (Combivent Respimat) 1 puff inhalation Q6H PRN 30 days lancets (CopaCastuch Delica Lancets) Check by finger stick route 4 times every day linagliptin (Tradjenta) 5 mg PO DAILY lisinopril 20 mg PO DAILY 90 days nebulizers (AeroEclipse II Nebulizer) As directed omeprazole 20 mg PO BID [onetouch glucometer As directed] pen needle, diabetic (BD Ultra-Fine Short Pen Needle) As directed daily with Lantus pramipexole 0.125 mg PO BEDTIME 90 days sodium polystyrene sulfonate 30 grams PO MOFR PRN tamsulosin 0.4 mg PO DAILY triamcinolone acetonide 0.1% 1 appl topical BID 1 week Ventolin HFA 90 mcg/actuation (albuterol sulfate) 2 puffs inhalation Q6H PRN 30 days NS Tobacco use date assessed: 11/30/22 HPI HPI Comments History of Present Illness Details This is a 72-year-old male with diabetes mellitus type 2 on long-term current use of insulin, hypertension, pure hypercholesterolemia and psoriatic arthritis that comes today for follow-up on his conditions. A1c elevated and I will increase insulin. Blood pressure stable. LDL within goal. Psoriatic arthritis stable with Otezla and this is follow by Dermatology. No chest pain or shortness of breath. Complains of costovertebral angle tenderness in the left side. Has microalbuminuria follow by Nephrology. [facility] Medical History (Updated 08/03/23 @ 13:49 by Sheba Corbett MD) Hypertensive retinopathy Nicotine dependence, cigarettes, uncomplicated Tubular adenoma of colon Restless leg syndrome Mild persistent asthma CKD stage 3 due to type 2 diabetes mellitus Diabetes mellitus, with long-term current use of insulin Pure hypercholesterolemia GERD (gastroesophageal reflux disease) Precordial chest pain Essential hypertension Non-rheumatic aortic stenosis Loss of hearing Anemia Asthma Surgical History History of esophagogastroduodenoscopy (EGD) History of colonoscopy History of cholecystectomy History of implantation of penile prosthesis Family History Father No problems noted. Mother No problems noted. Family/Other FH: mental illness Brother In good health Sister In good health Son In good health Daughter In good health Other Mental health disorder Social History Household Members: None Housing: Apartment Do you presently have visiting nurse or other home services: No Alcohol intake: current Alcohol intake frequency: holidays/special occasions only Alcohol type: hard liquor Patient Tobacco Use Status: Current everyday Tobacco user Tobacco use type: Cigarette Cigarettes Per Day: 10 e-Cigarette/Vaping Use: Never Used Second Hand Smoke Exposure: No service: No Current occupational status: disabled Cognitive needs: No Hearing needs: No Vision needs: Yes Questionnaire Thrive Questionnaire Date Thrive assessed: 11/30/22 HENRIETAT-7 AMB Questionnaire HENRIETTA-7 Date HENRIETTA - 7 assessed: 11/30/22 Source: Developed by Drs. Wil Cummings, Nataly Summers, Benjy Grimes and colleagues, with an educational champ from [employer]. Review of Systems Const All systems reviewed & are unremarkable except as noted in HPI and below Eyes Reports no additional complaints, Denies change in vision and Denies other visual disturbances Card Denies chest pain at rest, Denies chest pain with activity, Denies edema, Denies irregular heart rhythm, Denies claudication, Denies dyspnea, Denies dyspnea on exertion, Denies orthopnea, Denies paroxysmal nocturnal dyspnea and Denies slow heart rate Resp Denies cough, Denies dyspnea and Denies dyspnea on exertion GI Denies abdominal pain, Denies change in bowel habits, Denies excessive flatus, Denies nausea and Denies vomiting Denies urinary hesitancy, Denies urinary incontinence and Denies urinary urgency Musc Denies abnormal gait, Denies atrophy, Denies deformity and Denies limited range of motion Skin/Breast Denies bleeding lesions, Denies changing lesions and Denies rash Neuro Denies abnormal gait and Denies lack of coordination Physical exam (Primary Care) Vital Signs: Last Vital Signs Pulse 97 08/03/23 13:29 BP 112/60 08/03/23 13:29 Pulse Ox 97 08/03/23 13:29 Oxygen Delivery Method Room Air 08/03/23 13:29 BMI result Body Mass Index 26.8 Tobacco/Smoking Status: Tobacco use Status Tobacco use date assessed 11/30/22 08/03/23 13:27 Patient Tobacco Use Status Current everyday Tobacco 08/03/23 13:27 Tobacco use type Cigarette 08/03/23 13:27 e-Cigarette/Vaping Use Never Used 08/03/23 13:27 Thrive Assessment: Date of Thrive Assessment Date Thrive assessed 11/30/22 08/03/23 13:27 Eyes General: appearance normal, both eyes and all related structures Eyelids: Yes eyelids normal Conjunctivae: conjunctivae normal Neck Neck: Yes normal visual inspection and Yes supple Resp Effort & Inspection: normal respiratory effort Auscultation: clear to auscultation bilaterally Cardio Jugular venous distension: no JVD Rate: regular rate Rhythm: regular rhythm Heart sounds: S1 normal heart sound present and S2 normal heart sound present Extrem General: Yes full ROM Results AMB Hemoglobin A1c AMB Hemoglobin A1c 8.1 % Last Edit by BENITA Moncada on 08/03/23 13:4 1 Results Reviewed Results Reviewed: Laboratory Last Values Hgb A1c (Clinic) 8.1 % (4.0-6.0) H 08/03/23 13:27 Assessment and Plan Assessment & Plan (1) Diabetes mellitus, with long-term current use of insulin: Code(s): E11.9 - Type 2 diabetes mellitus without complications; Z79.4 - long term care social worker (current) use of insulin Qualifiers: Diabetes mellitus type: type 2 Diabetes mellitus complication status: with hyperglycemia Qualified Code(s): E11.65 - Type 2 diabetes mellitus with hyperglycemia; Z79.4 - long term care social worker (current) use of insulin Plan: Increase insulin. A1c goal is equal or less than 7%. (2) Essential hypertension: Code(s): I10 - Essential (primary) hypertension Plan: Continue amlodipine and lisinopril. Blood pressure goal is equal or less than 130/80. (3) Pure hypercholesterolemia: Code(s): E78.00 - Pure hypercholesterolemia, unspecified Plan: Continue statins. LDL goal is less than 70. (4) Psoriatic arthritis: Code(s): L40.50 - Arthropathic psoriasis, unspecified Plan: Continue Otezla. Follow-up with Dermatology. Orders: Orders XR KUB 08/03/23 M54.9 - Dorsalgia, unspecified AMB Hemoglobin A1c 08/03/23 E11.9 - Type 2 diabetes mellitus without complications, Z79.4 - [facility] (current) use of insulin Leukocytes Stool Qualitative 4 Months R19.7 - Diarrhea, unspecified Microalbumin, Random (w Creat) 4 Months E11.9 - Type 2 diabetes mellitus without complications Vitamin D 25-OH Total 4 Months E55.9 - Vitamin D deficiency, unspecified Comprehensive [place]. Panel Fast 4 Months E11.65 - Type 2 diabetes mellitus with hyperglycemia, Z79.4 - long term care social worker (current) use of insulin Medications: New cholecalciferol (vitamin D3) 25 mcg PO DAILY 90 days 90 caps 1RF trazodone 50 mg PO BEDTIME 90 days PRN 90 tabs 0RF sleep Changed From insulin glargine (Lantus Solostar U-100 Insulin) 25 units (0.25 mL) subcut QPM 90 days 22.5 mL 3RF To insulin glargine (Lantus Solostar U-100 Insulin) 30 units (0.3 mL) subcut QPM 90 days 27 mL 3RF Coding Level of Care Code Est Pt Level 4 (29825) Diagnoses Type 2 diabetes mellitus with hyperglycemia, with long-term current use of insulin E11.65; Z79.4 Diabetes mellitus type: type 2 Diabetes mellitus complication status: with hyperglycemia Essential hypertension I10 Pure hypercholesterolemia E78.00 Psoriatic arthritis L40.50 Time Spent (min) 22
[2023-08-03 13:29] VITALS: BP 112/60; PULSE 97; O2SAT 97; BMI 26.8
== END 2023-08-03 13:49 | disposition home or self-care (01) ==
PROVIDERS: PCP Internal Medicine; Visit Provider Internal Medicine
DX: E11.9 Type 2 diabetes mellitus without complications (principal); Z79.4 Long term (current) use of insulin
CPT/HCPCS: 83036; 99214

== ENCOUNTER 2023-08-07 09:15 | Outpatient (REF) | payer OTHER, SELFPAY ==
--- NOTE | ~2023-08-07 | XR_ITS ---
EXAMINATION: XR ABDOMEN KUB CLINICAL INDICATION: Pain. COMPARISON: CT abdomen and pelvis 02/20/2022. X-ray lumbar spine 02/15/2017 TECHNIQUE: 2 AP views of the abdomen. FINDINGS: Surgical clips right upper quadrant of the abdomen. Nonobstructive bowel gas pattern. Moderate amount of stool in the colon. Mild dextroscoliosis of the thoracolumbar spine with multilevel degenerative changes. 2 tubular devices project just inferior to the pubic symphysis with a small rounded calcification inferiorly located. XR/XR KUB IMPRESSION: Nonobstructive bowel gas pattern. Moderate amount of stool in the colon.
== END 2023-08-07 09:16 | disposition home or self-care (01) ==
LOC: HO.XRAY 09:15
PROVIDERS: PCP Internal Medicine; Visit Provider Internal Medicine
DX: M54.9 Dorsalgia, unspecified (principal)
CPT/HCPCS: 74018

== ENCOUNTER 2023-08-29 09:07 | Emergency (ER) | payer OTHER, SELFPAY ==
[2023-08-29 09:10] VITALS: BP 141/60; PULSE 83; RESP 18; TEMP 35.8; O2SAT 97; BMI 27.7
[2023-08-29 09:59] LABS: COVID-19 Test Negative (Negative); IDNOW Serial# 58CA691E; IDNOW Serial# BCCEAD1C; Strep A Nucleic Acid Negative (Negative)
[2023-08-29 10:09] LABS: IDNOW Serial# BCCEAD1C
[2023-08-29 10:10] LABS: Influenza A Negative (Negative); Influenza B2 Negative (Negative)
--- NOTE | 2023-08-29 11:15 | ED.GENADULT ---
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 States that he previously had similar symptoms for 2 weeks, then symptoms resolved for 1 week, then symptoms returned. He denies fevers, ear pain, sore throat. Denies any chest pain, palpitations, shortness of breath. States he has used many [id number] cough medications as well as melisa and cinnamon with little relief of symptoms. MD complaint: Cough, hoarse voice Onset (ago): week(s) Relieving factors: none Exacerbating factors: none Associated symptoms: denies other symptoms Treatments prior to arrival: other (OTC cold medications) Related Data Home Medications Medication Instructions Recorded Confirmed sodium polystyrene sulfonate 30 g PO MOFR PRN high potassium 05/04/21 08/03/23 apremilast 30 mg tablet (Otezla) 30 mg PO BID 10/26/21 08/03/23 Previous Rx's Medication Instructions Recorded onetouch glucometer #1 ea 10/09/20 lancets 33 gauge (OneTouch Delica #100 ea 12/15/20 Lancets) triamcinolone acetonide 0.1 % 1 appl topical BID 1 week #30 grams 12/21/21 topical ointment nebulizers (AeroEclipse II #1 ea 01/10/22 Nebulizer) clotrimazole-betamethasone 1 1 appl topical BID #15 grams 02/09/22 %-0.05 % topical cream acetaminophen 325 mg capsule 650 mg (2 x 325 mg) PO Q4H PRN 02/20/22 (Tylenol) pain #30 caps cyclobenzaprine 10 mg tablet 10 mg PO TID PRN muscle spasm #10 02/20/22 tabs diabetic shoes and inserts #1 ea 03/10/22 gabapentin 300 mg capsule 600 mg (2 x 300 mg) PO DAILY 90 07/28/22 days #180 caps aspirin 81 mg tablet,delayed 81 mg PO DAILY #90 tabs 12/07/22 release pen needle, diabetic 31 gauge x #1,200 ea 02/21/23 5/16 (BD Ultra-Fine Short Pen Needle) lisinopril 20 mg tablet 20 mg PO DAILY 90 days #90 tabs 04/05/23 Ventolin HFA 90 mcg/actuation 2 puff inhalation Q6H PRN 04/12/23 aerosol inhaler (albuterol sulfate) shortness of breath or wheezing 30 days #18 grams ipratropium 0.5 mg-albuterol 3 mg 3 ml inhalation Q6H PRN for 04/13/23 (2.5 mg base)/3 mL nebulization wheezing 30 days #90 mL soln blood sugar diagnostic (OneTouch #100 ea 04/15/23 Verio test strips) albuterol sulfate 2.5 mg/3 mL 2.5 mg (3 mL) inhalation Q6H PRN 04/27/23 (0.083 %) solution for nebulization bronchospasm 30 days #360 mL tamsulosin 0.4 mg capsule 0.4 mg PO DAILY #90 caps 05/10/23 fluticasone 500 mcg-salmeterol 50 1 inh PO BID 90 days #180 ea 06/07/23 mcg/dose blistr powdr for inhalation (Wixela Inhub) amlodipine 5 mg tablet 5 mg PO DAILY 90 days #90 tabs 06/23/23 empagliflozin 25 mg tablet 25 mg PO QAM #30 tabs 07/03/23 (Jardiance) folic acid 1 mg tablet 1 mg PO DAILY #90 tabs 07/06/23 omeprazole 20 mg capsule,delayed 20 mg PO BID #180 caps 07/06/23 release cholecalciferol (vitamin D3) 25 25 mcg PO DAILY 90 days #90 caps 08/03/23 mcg (1,000 unit) capsule insulin glargine 100 unit/mL (3 30 unit (0.3 mL) subcut QPM 90 08/03/23 mL) subcutaneous pen (Lant #27 mL Solostar U-100 Insulin) trazodone 50 mg tablet 50 mg PO BEDTIME PRN sleep 90 days 08/03/23 #90 tabs ipratropium 20 mcg-albuterol 100 1 puff inhalation Q6H PRN wheezing 08/04/23 mcg/actuation mist for inhalation 30 days #4 grams (Combivent Respimat) linagliptin 5 mg tablet (Tradjenta) 5 mg PO DAILY #30 tabs 08/13/23 pramipexole 0.125 mg tablet 0.125 mg PO BEDTIME 90 days #90 08/13/23 tabs atorvastatin 20 mg tablet 20 mg PO BEDTIME 90 days #90 tabs 08/14/23 azithromycin 250 mg tablet See Rx Instructions PO .COMPLEX #6 08/29/23 tabs benzonatate 100 mg capsule 100 mg PO TID PRN cough #20 caps 08/29/23 Allergies Allergy/AdvReac Type Severity Reaction Status Date / Time doxycycline Allergy Intermediate Itching Verified 08/03/23 13:39 levofloxacin Allergy Intermediate Itching Verified 08/03/23 13:39 metformin Allergy Intermediate diarrhea Verified 08/03/23 13:39 morphine [MORPHINE] Allergy Intermediate ITCHING Verified 08/03/23 13:39 tetracycline Allergy Intermediate Itching Verified 08/03/23 13:39 cefazolin AdvReac Mild Diarrhea, Verified 08/03/23 13:39 itchy Review of Systems Review of Systems: As per HPI. Yes all other systems are reviewed and are negative Constitutional: Constitutional: Reports as per HPI PMFSH Past Medical History Medical History Hypertensive retinopathy Nicotine dependence, cigarettes, uncomplicated Tubular adenoma of colon Restless leg syndrome Mild persistent asthma CKD stage 3 due to type 2 diabetes mellitus Diabetes mellitus, with long-term current use of insulin Pure hypercholesterolemia GERD (gastroesophageal reflux disease) Precordial chest pain Essential hypertension Non-rheumatic aortic stenosis Loss of hearing Anemia Asthma Surgical History History of esophagogastroduodenoscopy (EGD) History of colonoscopy History of cholecystectomy History of implantation of penile prosthesis Family History Family History Father No problems noted. Mother No problems noted. Family/Other FH: mental illness Brother In good health Sister In good health Son In good health Daughter In good health Other Mental health disorder Social History Household Members: None Housing: Apartment Do you presently have visiting nurse or other home services: No Alcohol intake: current Alcohol intake frequency: holidays/special occasions only Alcohol type: hard liquor Patient Tobacco Use Status: Current everyday Tobacco user Tobacco use type: Cigarette Cigarettes Per Day: 10 e-Cigarette/Vaping Use: Never Used Second Hand Smoke Exposure: No Advance Directives: No service: No Current occupational status: disabled Cognitive needs: No Hearing needs: No Vision needs: Yes Physical Exam ED Vital Signs: Vital Signs - 24 hr 08/29/23 09:10 Temperature 96.5 F L Pulse Rate 83 Respiratory Rate 18 Blood Pressure 141/60 H Pulse Oximetry 97 Oxygen Delivery Method Room Air BMI result Body Mass Index 27.7 Vital signs have been reviewed and appear to be correct. Blood pressure normal. Heart rate normal. Respiratory rate normal. Temperature normal. Oxygen saturation normal. Const General: cooperative, healthy appearing and no acute distress Orientation/consciousness: oriented to person, oriented to place, oriented to time and patient oriented x3 Limitations: no limitations HENMT Other: voice hoarse Head: Yes normocephalic and Yes atraumatic Ears: external ears normal and TM's normal bilaterally General nose exam: Normal external nose present and Normal nasal mucous membranes and turbinates present Face and sinus: Yes face symmetric Mouth: Normal oral and palatal mucosa present, oropharynx normal and moist mucous membranes Throat: Yes posterior oropharynx normal, Yes tonsils normal, Yes uvula midline, No peritonsillar mass and No uvular edema Eyes Pupils: Equal, round and reactive pupils present Neck Neck: Yes normal visual inspection, Yes full ROM, Yes no meningeal signs, Yes trachea midline, Yes supple and No anterior neck swelling Lymphatic: no lymphadenopathy noted Resp Effort & Inspection: normal respiratory effort and able to speak in complete sentences Auscultation: clear to auscultation bilaterally and wheezes scattered wheezes Cardio Rate: regular rate Rhythm: regular rhythm Heart sounds: S1 normal heart sound present and S2 normal heart sound present GI Palpation (GI): Soft to palpation and nontender Auscultation: normoactive bowel sounds General: Yes no CVA tenderness Back/Spine/Pelvis Back: no CVA tenderness Skin General skin exam: elasticity normal and turgor normal Neuro General: oriented to person, oriented to place, oriented to time, patient oriented x3, moves all extremities, no meningeal signs, no focal motor deficits and CN's II-XI intact bilaterally Cranial nerves: Yes Equal, round and reactive pupils present Cognition (Neuro): normal cognition Extrem General: Yes full ROM, Yes no pedal edema and Yes no calf tenderness Psych Mental Status: mental status grossly normal Affect: normal affect Thought process: Normal thought process present Medical Decision Making Medical Decision Making [facility] Narrative: Patient is a 72-year-old Algerian-speaking male with history of DM, HTN presenting to the emergency department with complaint of nonproductive cough and hoarse voice for the past week. On exam patient is awake, A+Ox3, VS WNL, afebrile, normal neurological exam without focal deficits, physical exam findings as above. Given reported symptoms and physical exam findings, initial differential includes viral illness, Covid, flu, strep pharyngitis, bronchitis. Swabs for Covid, flu, strep all negative, patient updated on results. Will treat for bronchitis with azithromycin. Offered treatment with prednisone, which patient declined stating he does not want this to raise his blood pressure or glucose. Will prescribe benzonatate for cough. Instructed patient to follow up with PCP. Return precautions discussed. Patient verbalized understanding of and agreement with plan. Differential Diagnosis Differential Diagnoses: The differential diagnosis associated with the presentation includes As per [facility] Lab Data [facility] Lab Attestation statement: I reviewed the patient's lab results. As per [facility] Labs: Lab Results 08/29/23 Range/Units 09:22 COVID-19 (DOLLY) Negative (Negative) COVID-19 Clin Com See Note Influenza Type A (DEV) Negative (Negative) Influenza Type B (DEV) Negative (Negative) Influenza A & B Note See Note S. pyogenes GrpA DEV Negative (Negative) External Record Review External record reviewed: Inpatient record, Office record and Outpatient record Prescription Management I considered prescription management with: Antibiotic and Other Chronic Conditions Patient?s care impacted by: Diabetes and Hypertension Discharge Plan Discharge Clinical Impression: Bronchitis Patient Disposition: Home, Self-Care Instructions: Acute Bronchitis (ED) Additional Instructions: Usted fue evaluado hoy en el departamento de emergencias por tos y dificultad para respirar. Est? recibiendo tratamiento para la bronquitis con un antibi?ruddy; complete el tratamiento completo seg?n lo prescrito. Le recetan benzonatato, que es un medicamento para la tos que puede usar cada 8 horas seg?n sea necesario para la tos. Daniel un seguimiento con enrique proveedor de atenci?n primaria esta semana. Regrese al departamento de emergencias si presenta dificultad para respirar que empeora, dolor en el pecho, fiebre que no mejora con Tylenol o ibuprofeno, o cualquier otro s?ntoma preocupante. Prescriptions: New azithromycin 250 mg tablet See Rx Instructions .ROUTE .COMPLEX Qty: 6 0RF Rx Instructions: For 250 mg dose pack: take 500 mg today (day 1), then 250 mg for 4 days (days 2-5) benzonatate 100 mg capsule 100 mg PO TID PRN (Reason: cough) Qty: 20 0RF No Action (DME) onetouch glucometer See Rx Instructions .Route .MEDSUPPLY Qty: 1 0RF Rx Instructions: As directed (DME) lancets [OneTouch Delica Lancets] 33 gauge misc See Rx Instructions .ROUTE .MEDSUPPLY Qty: 100 11RF Rx Instructions: Check by finger stick route 4 times every day (DME) AeroEclipse II Nebulizer Misc See Rx Instructions .Route Qty: 1 0RF Rx Instructions: As directed aspirin 81 mg tablet,delayed release (DR/EC) 81 mg PO DAILY Qty: 90 3RF (DME) pen needle, diabetic [BD Ultra-Fine Short Pen Needle] 31 gauge x 5/16 needle See Rx Instructions .ROUTE .MEDSUPPLY Qty: 1200 0RF Rx Instructions: As directed daily with Lantus lisinopril 20 mg tablet 20 mg PO DAILY 90 Days Qty: 90 1RF albuterol sulfate [Ventolin HFA] 90 mcg/actuation HFA aerosol inhaler 2 puff inhalation Q6H PRN (Reason: shortness of breath or wheezing) 30 Days Qty: 18 2RF ipratropium-albuterol 0.5 mg-3 mg(2.5 mg base)/3 mL solution for nebulization 3 ml inhalation Q6H PRN (Reason: for wheezing) 30 Days Qty: 90 3RF (DME) OneTouch Verio test strips Strip See Rx Instructions .ROUTE .MEDSUPPLY Qty: 100 11RF Rx Instructions: Use 3 times a day to test BG daily for 30 days albuterol sulfate 2.5 mg /3 mL (0.083 %) solution for nebulization 2.5 mg inhalation Q6H PRN (Reason: bronchospasm) 30 Days Qty: 360 0RF tamsulosin 0.4 mg capsule 0.4 mg PO DAILY Qty: 90 1RF fluticasone propion-salmeterol [Wixela Inhub] 500-50 mcg/dose blister with device 1 inh PO BID 90 Days Qty: 180 3RF amlodipine 5 mg tablet 5 mg PO DAILY 90 Days Qty: 90 1RF Jardiance 25 mg tablet 25 mg PO QAM Qty: 30 6RF omeprazole 20 mg capsule,delayed release(DR/EC) 20 mg PO BID Qty: 180 2RF folic acid 1 mg tablet 1 mg PO DAILY Qty: 90 1RF Combivent Respimat 20-100 mcg/actuation mist 1 puff inhalation Q6H PRN (Reason: wheezing) 30 Days Qty: 4 4RF Tradjenta 5 mg tablet 5 mg PO DAILY Qty: 30 6RF pramipexole 0.125 mg tablet 0.125 mg PO BEDTIME 90 Days Qty: 90 1RF atorvastatin 20 mg tablet 20 mg PO BEDTIME 90 Days Qty: 90 0RF sodium polystyrene sulfonate Powder 30 g PO MOFR PRN (Reason: high potassium) triamcinolone acetonide 0.1 % ointment 1 appl topical BID 7 Days Qty: 30 0RF cyclobenzaprine 10 mg tablet 10 mg PO TID PRN (Reason: muscle spasm) Qty: 10 0RF acetaminophen [Tylenol] 325 mg capsule 650 mg PO Q4H PRN (Reason: pain) Qty: 30 0RF Otezla 30 mg tablet 30 mg PO BID (DME) diabetic shoes and inserts 9 See Rx Instructions .Route .MEDSUPPLY Qty: 1 0RF Rx Instructions: As directed clotrimazole-betamethasone 1-0.05 % cream 1 appl topical BID Qty: 15 0RF gabapentin 300 mg capsule 600 mg PO DAILY 90 Days Qty: 180 3RF cholecalciferol (vitamin D3) 25 mcg (1,000 unit) capsule 25 mcg PO DAILY 90 Days Qty: 90 1RF insulin glargine [Lantus Solostar U-100 Insulin] 100 unit/mL (3 mL) insulin pen 30 unit subcut QPM 90 Days Qty: 27 3RF Patient Comments: pt took 15 units yesterday trazodone 50 mg tablet 50 mg PO BEDTIME PRN (Reason: sleep) 90 Days Qty: 90 0RF Print Language: Algerian
== END 2023-08-29 11:24 | disposition home or self-care (01) ==
PROVIDERS: Emergency Provider Emergency Medicine; PCP Internal Medicine
DX: J40 Bronchitis, not specified as acute or chronic (principal); Z11.52 Encounter for screening for COVID-19; J02.9 Acute pharyngitis, unspecified; F17.210 Nicotine dependence, cigarettes, uncomplicated
CPT/HCPCS: 87502; 87635; 87651; 99282; 99283

== ENCOUNTER 2023-09-28 14:24 | Outpatient (AMB) | payer OTHER, SELFPAY ==
--- NOTE | 2023-09-28 14:35 | A.OFFVIS_ITS ---
Intake Vital Signs 09/28/23 14:37 Height 5 ft 6 in Weight 174 lb 2.643 oz BMI 28.1 BP 130/50 L Blood Pressure Location Lt brachial Position Sitting Pulse 90 Intake Visit Reasons: 1 year followup w/ekg dx:essential htn\Confirmed Intake Note: 1 year follow up w. EKG Lead Quality Control Technician Required: Yes Lead Quality Control Technician Language: Cyber Software Engineer Name: [place] Faith [id number] Accompanied by: Self / Same As Patient Allergies doxycycline Allergy (Intermediate, Verified 09/28/23 14:40) Itching levofloxacin Allergy (Intermediate, Verified 09/28/23 14:40) Itching metformin Allergy (Intermediate, Verified 09/28/23 14:40) diarrhea morphine [MORPHINE] Allergy (Intermediate, Verified 09/28/23 14:40) ITCHING tetracycline Allergy (Intermediate, Verified 09/28/23 14:40) Itching cefazolin Adverse Reaction (Mild, Verified 09/28/23 14:40) Diarrhea, itchy Medication List - Last Reconciled 09/28/23 by Ted Josue MD acetaminophen (Tylenol) 650 mg (2 x 325 mg) PO Q4H PRN albuterol sulfate 2.5 mg (3 mL) inhalation Q6H PRN 30 days amlodipine 5 mg PO DAILY 90 days apremilast (Otezla) 30 mg PO BID aspirin 81 mg PO DAILY atorvastatin 20 mg PO BEDTIME 90 days benzonatate 100 mg PO TID PRN blood sugar diagnostic ([employer] MedicalTouch Verio test strips) Use 3 times a day to test BG daily for 30 days cholecalciferol (vitamin D3) 25 mcg PO DAILY 90 days clotrimazole-betamethasone 1-0.05 % 1 appl topical BID cyclobenzaprine 10 mg PO TID PRN [diabetic shoes and inserts As directed] empagliflozin (Jardiance) 25 mg PO QAM fluticasone propion-salmeterol 500-50 mcg/dose (Wixela Inhub) 1 inh PO BID 90 days folic acid 1 mg PO DAILY gabapentin 600 mg (2 x 300 mg) PO DAILY 90 days insulin glargine (Lantus Solostar U-100 Insulin) 30 units (0.3 mL) subcut QPM 90 days ipratropium-albuterol 0.5 mg-3 mg(2.5 mg base)/3 mL 3 mL inhalation Q6H PRN 30 days ipratropium-albuterol 20-100 mcg/actuation (Combivent Respimat) 1 puff inhalation Q6H PRN 30 days lancets ([employer] Delica Lancets) Check by finger stick route 4 times every day linagliptin (Tradjenta) 5 mg PO DAILY lisinopril 20 mg PO DAILY 90 days nebulizers (AeroEclipse II Nebulizer) As directed omeprazole 20 mg PO BID [FusionOneuch glucometer As directed] pen needle, diabetic (BD Ultra-Fine Short Pen Needle) As directed daily with Lantus pramipexole 0.125 mg PO BEDTIME 90 days sodium polystyrene sulfonate 30 grams PO MOFR PRN tamsulosin 0.4 mg PO DAILY trazodone 50 mg PO BEDTIME PRN 90 days triamcinolone acetonide 0.1% 1 appl topical BID 1 week Ventolin HFA 90 mcg/actuation (albuterol sulfate) 2 puffs inhalation Q6H PRN 30 days NS HPI HPI Comments History of Present Illness Details Jonathon returns for follow-up regarding aortic stenosis. He has multiple vascular risk factors including type 2 diabetes, hypertension, dyslipidemia and also smoking. Since last seen, generally doing fine. Some random symptoms like nonspecific chest fluttering at times but very erratic. Nothing predictable or recurrent. Otherwise no anginal-type symptoms or anything else of concern. [facility] Medical History Hypertensive retinopathy Nicotine dependence, cigarettes, uncomplicated Tubular adenoma of colon Restless leg syndrome Mild persistent asthma CKD stage 3 due to type 2 diabetes mellitus Diabetes mellitus, with long-term current use of insulin Pure hypercholesterolemia GERD (gastroesophageal reflux disease) Precordial chest pain Essential hypertension Non-rheumatic aortic stenosis Loss of hearing Anemia Asthma Surgical History History of esophagogastroduodenoscopy (EGD) History of colonoscopy History of cholecystectomy History of implantation of penile prosthesis Family History Father No problems noted. Mother No problems noted. Family/Other FH: mental illness Brother In good health Sister In good health Son In good health Daughter In good health Other Mental health disorder Social History Household Members: None Housing: Apartment Do you presently have visiting nurse or other home services: No Alcohol intake: current Alcohol intake frequency: holidays/special occasions only Alcohol type: hard liquor Patient Tobacco Use Status: Current everyday Tobacco user Tobacco use type: Cigarette Cigarettes Per Day: 10 e-Cigarette/Vaping Use: Never Used Second Hand Smoke Exposure: No service: No Current occupational status: disabled Cognitive needs: No Hearing needs: No Vision needs: Yes Review of Systems Const Denies weakness ENT Denies dizziness Card Denies chest pain, Denies chest pain with activity, Denies syncope, Reports rapid heart rate, Denies pedal edema, Denies edema, Denies leg edema, Denies lightheadedness, Reports palpitations, Denies dyspnea and Denies orthopnea Resp Denies cough and Denies dyspnea GI Denies hematochezia and Denies change in stool character Musc Denies abnormal gait, Denies muscle cramps, Denies muscle weakness, Denies numbness, Denies radiating pain into limb and Denies tingling Neuro Denies abnormal gait, Denies dizziness, Denies syncope, Denies numbness, Denies tingling and Denies weakness Endo Reports palpitations Physical Exam Vital Signs: Last Vital Signs Pulse 90 09/28/23 14:37 BP 130/50 L 09/28/23 14:37 BMI result Body Mass Index 28.1 Const General: comfortable and no acute distress Orientation/consciousness: patient oriented x3 HEENT Other: Unremarkable Head: Yes normal to inspection Neck Neck: Yes normal visual inspection Chest Chest palpation & inspection: normal inspection of the chest Resp Auscultation: clear to auscultation bilaterally Cardio Palpation: normal PMI Heart sounds: S1 normal heart sound present, S2 normal heart sound present, no gallops, Murmur heart sound present systolic II/ and at the right sternal border and no rubs GI Palpation (GI): Soft to palpation Back/Spine/Pelvis Other: unremarkable Skin General skin exam: no rashes or lesions noted Neuro General: patient oriented x3 Extrem General: Yes normal to inspection Psych Mental Status: mental status grossly normal Office Procedures EKG Details: EKG with sinus rhythm at 90/Min; no significant ST-T changes and otherwise unremark[place] [id number], Complete Assessment & Plan Assessment & Plan (1) Non-rheumatic aortic stenosis: Code(s): I35.0 - Nonrheumatic aortic (valve) stenosis Plan: In the last echocardiogram, moderate calcification aortic valve. Mild stenosis. Not hemodynamically significant. Recheck next year. (2) Essential hypertension: Code(s): I10 - Essential (primary) hypertension Plan: On Amlodipine, Lisinopril. Stable. (3) Type 2 diabetes mellitus with unspecified complications: Code(s): E11.8 - Type 2 diabetes mellitus with unspecified complications Plan: On insulin, Jardiance. Last hemoglobin A1c is 8.1 %. (4) Smoking: Code(s): F17.200 - Nicotine dependence, unspecified, uncomplicated Plan: Discussed about smoking has worse including heart attack and cardiac issues. Strongly advised to quit. Plan Overall, multiple cardiovascular risk factors but no overt symptoms. He remains at high risk for myocardial infarction and he is aware of that. Last myocardial perfusion imaging studies from 2020 and that was unremarkable. Total time spent including review of data, counseling, documentation, coordination of care-32 minutes. Orders: Orders CA echo transthoracic complete 51 Weeks I35.0 - Nonrheumatic aortic (valve) stenosis Coding Level of Care Code Est Pt Level 4 (33636) Diagnoses Non-rheumatic aortic stenosis I35.0 Essential hypertension I10 Type 2 diabetes mellitus with unspecified complications E11.8 Smoking F17.200 CPT Codes EKG - CPT: 16195-[id number], Complete ([id number])
[2023-09-28 14:37] VITALS: BP 130/50; PULSE 90; BMI 28.1
== END 2023-09-28 14:57 | disposition home or self-care (01) ==
PROVIDERS: PCP Internal Medicine; Visit Provider Internal Medicine
DX: I35.0 Nonrheumatic aortic (valve) stenosis (principal); I10 Essential (primary) hypertension; E11.8 Type 2 diabetes mellitus with unspecified complications; F17.200 Nicotine dependence, unspecified, uncomplicated
CPT/HCPCS: 93010; 99214

== ENCOUNTER → 2023-09-28 14:24 | Outpatient (BNVA) | payer OTHER, SELFPAY | PROVIDERS: PCP Internal Medicine; Visit Provider Internal Medicine | DX: I35.0 Nonrheumatic aortic (valve) stenosis (principal); I10 Essential (primary) hypertension; E11.8 Type 2 diabetes mellitus with unspecified complications; F17.210 Nicotine dependence, cigarettes, uncomplicated | CPT/HCPCS: 93005; 99212 ==

== ENCOUNTER 2023-11-26 11:47 | Emergency (ER) | payer OTHER, SELFPAY ==
--- NOTE | 2023-11-26 11:49 | ED.SKABFB ---
HPI - Skin/Abscess/Foreign Bdy General Chief complaint: Skin/Abscess/Foreign Body Stated complaint: rash on foot Time Seen by Provider: 11/26/23 12:14 Source: patient Mode of arrival: ambulatory Limitations: no limitations History of Present Illness HPI narrative: Patient is a 72-year-old male who presents emergency department for evaluation of 2 days with painful itchy rash to the right foot. Tried cleaning with hydrogen peroxide last night without improvement, also tried applying psoriasis cream without improvement. on exam erythematous non blanchable patch to the right medial distal lower extremity. No injury, nontoxic. Denies any additional skin rashes or lesions Related Data Home Medications Medication Instructions Recorded Confirmed sodium polystyrene sulfonate 30 g PO MOFR PRN high potassium 05/04/21 09/28/23 apremilast 30 mg tablet (Otezla) 30 mg PO BID 10/26/21 09/28/23 Previous Rx's Medication Instructions Recorded onetouch glucometer #1 ea 10/09/20 lancets 33 gauge (OneTouch Delica #100 ea 12/15/20 Lancets) triamcinolone acetonide 0.1 % 1 appl topical BID 1 week #30 grams 12/21/21 topical ointment nebulizers (AeroEclipse II #1 ea 01/10/22 Nebulizer) clotrimazole-betamethasone 1 1 appl topical BID #15 grams 02/09/22 %-0.05 % topical cream acetaminophen 325 mg capsule 650 mg (2 x 325 mg) PO Q4H PRN 02/20/22 (Tylenol) pain #30 caps cyclobenzaprine 10 mg tablet 10 mg PO TID PRN muscle spasm #10 02/20/22 tabs diabetic shoes and inserts #1 ea 03/10/22 aspirin 81 mg tablet,delayed 81 mg PO DAILY #90 tabs 12/07/22 release pen needle, diabetic 31 gauge x #1,200 ea 02/21/23/ (BD Ultra-Fine Short Pen Needle) Ventolin HFA 90 mcg/actuation 2 puff inhalation Q6H PRN 04/12/23 aerosol inhaler (albuterol sulfate) shortness of breath or wheezing 30 days #18 grams blood sugar diagnostic (OneTouch #100 ea 04/15/23 Verio test strips) albuterol sulfate 2.5 mg/3 mL 2.5 mg (3 mL) inhalation Q6H PRN 04/27/23 (0.083 %) solution for nebulization bronchospasm 30 days #360 mL tamsulosin 0.4 mg capsule 0.4 mg PO DAILY #90 caps 05/10/23 fluticasone 500 mcg-salmeterol 50 1 inh PO BID 90 days #180 ea 06/07/23 mcg/dose blistr powdr for inhalation (Wixela Inhub) amlodipine 5 mg tablet 5 mg PO DAILY 90 days #90 tabs 06/23/23 empagliflozin 25 mg tablet 25 mg PO QAM #30 tabs 07/03/23 (Jardiance) folic acid 1 mg tablet 1 mg PO DAILY #90 tabs 07/06/23 omeprazole 20 mg capsule,delayed 20 mg PO BID #180 caps 07/06/23 release cholecalciferol (vitamin D3) 25 25 mcg PO DAILY 90 days #90 caps 08/03/23 mcg (1,000 unit) capsule insulin glargine 100 unit/mL (3 30 unit (0.3 mL) subcut QPM 90 08/03/23 mL) subcutaneous pen (Lantus days #27 mL Solostar U-100 Insulin) ipratropium 20 mcg-albuterol 100 1 puff inhalation Q6H PRN wheezing 08/04/23 mcg/actuation mist for inhalation 30 days #4 grams (Combivent Respimat) linagliptin 5 mg tablet (Tradjenta) 5 mg PO DAILY #30 tabs 08/13/23 pramipexole 0.125 mg tablet 0.125 mg PO BEDTIME 90 days #90 08/13/23 tabs benzonatate 100 mg capsule 100 mg PO TID PRN cough #20 caps 08/29/23 ipratropium 0.5 mg-albuterol 3 mg 3 ml inhalation Q6H PRN for 08/30/23 (2.5 mg base)/3 mL nebulization wheezing 30 days #90 mL soln lisinopril 20 mg tablet 20 mg PO DAILY 90 days #90 tabs 10/01/23 gabapentin 300 mg capsule 600 mg (2 x 300 mg) PO DAILY 90 10/25/23 days #180 caps trazodone 50 mg tablet 50 mg PO BEDTIME PRN sleep 90 days 10/25/23 #90 tabs atorvastatin 20 mg tablet 20 mg PO BEDTIME 90 days #90 tabs 11/15/23 Allergies Allergy/AdvReac Type Severity Reaction Status Date / Time doxycycline Allergy Intermediate Itching Verified 09/28/23 14:40 levofloxacin Allergy Intermediate Itching Verified 09/28/23 14:40 metformin Allergy Intermediate diarrhea Verified 09/28/23 14:40 morphine [MORPHINE] Allergy Intermediate ITCHING Verified 09/28/23 14:40 tetracycline Allergy Intermediate Itching Verified 09/28/23 14:40 cefazolin AdvReac Mild Diarrhea, Verified 09/28/23 14:40 itchy Review of Systems Review of Systems: Yes all other systems are reviewed and are negative PMFSH Past Medical History Attestation statement: The following information was validated with the patient. Source: old records reviewed Medical History Hypertensive retinopathy Nicotine dependence, cigarettes, uncomplicated Tubular adenoma of colon Restless leg syndrome Mild persistent asthma CKD stage 3 due to type 2 diabetes mellitus Diabetes mellitus, with long-term current use of insulin Pure hypercholesterolemia GERD (gastroesophageal reflux disease) Precordial chest pain Essential hypertension Non-rheumatic aortic stenosis Loss of hearing Anemia Asthma Surgical History History of esophagogastroduodenoscopy (EGD) History of colonoscopy History of cholecystectomy History of implantation of penile prosthesis Family History Family History Father No problems noted. Mother No problems noted. Family/Other FH: mental illness Brother In good health Sister In good health Son In good health Daughter In good health Other Mental health disorder Social History Social History Household Members: None Housing: Apartment Do you presently have visiting nurse or other home services: No Alcohol intake: current Alcohol intake frequency: holidays/special occasions only Alcohol type: hard liquor Patient Tobacco Use Status: Current everyday Tobacco user Tobacco use type: Cigarette Cigarettes Per Day: 10 e-Cigarette/Vaping Use: Never Used Second Hand Smoke Exposure: No Advance Directives: No Advance Directives Information Provided: No service: No Current occupational status: disabled Cognitive needs: No Hearing needs: No Vision needs: Yes Physical Exam Vital Signs: Vital Signs: Last Vital Signs Temp 98.3 F 11/26/23 11:52 Pulse 94 11/26/23 11:52 Resp 18 11/26/23 11:52 BP 120/78 11/26/23 11:52 Pulse Ox 97 11/26/23 11:52 O2 Del Method Room Air 11/26/23 11:52 BMI result Body Mass Index 27.9 Appearance: Alert.?Oriented to person, place and time. No acute distress.?Normal affect. Eyes: Pupils equal, round and reactive to light.? ENT: Pharynx normal.?? Neck: Normal inspection.? Neck supple.?? CVS: Heart sounds normal. Normal heart rate and rhythm.? Pulses normal.?? Respiratory: No respiratory distress.? Lung sounds clear to auscultation bilaterally?? Abdomen: Soft and non-tender. Normoactive bowel sounds. Skin: Skin warm and dry.? Normal skin color.? Medial distal right lower extremity minimally blanchable patch Extremities: No lower extremity edema.? No calf ttp? Neuro: Moves all extremities spontaneously. Sensation intact bilaterally. No focal neuro deficits. Ambulates with normal steady gait. Medical Decision Making Medical Decision Making MDM Narrative: Patient is a 72-year-old male with past medical history of restless legs syndrome, asthma, CKD stage 3, diabetes mellitus with insulin dependence, hypercholesterolemia, GERD, hypertension, anemia, nonrheumatic aortic stenosis who presents emergency department for evaluation of a rash to the medial distal right lower extremity, noted be mildly itchy. Physical examination is concerning for contact dermatitis, psoriasis, purpura, it is a patch with red/purple discoloration that is minimally blanchable, with mild superficial scaling. No additional skin lesions or active bleeding. Non-ill appearing, afebrile no tachycardia, no signs of toxicity, no recent viral type illness when asked. Denies any arthralgias. Denies any known exposure to tick borne illnesses. Denies any injury to the area. Does not appear consistent with cellulitis. Obtain serum labs to evaluate for alternative etiology; thrombocytopenia, hepatitis, secondary to CKD, less likely HUS. Serum labs without evidence of the aforementioned conditions. 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 Discussed worrisome signs and symptoms that would warrant re-evaluation in the emergency department. All questions answered. Stable for discharge. Differential Diagnosis Differential Diagnoses: The differential diagnosis associated with the presentation includes (As noted above) Lab Data MDM Lab Attestation statement: I reviewed the patient's lab results. No anemia, no thrombocytopenia, baseline renal function, no electrolyte abnormality, no elevated transaminases, inflammatory markers normal. 11/26/23 12:49 11/26/23 12:49 Labs: Lab Results 11/26/23 Range/Units 12:49 WBC 11.2 H (4.8-10.8) X10*3/uL RBC 4.72 (4.60-5.80) X10*6/uL Hgb 14.1 (14.0-18.0) g/dl Hct 42.9 (42.0-52.0) % MCV 90.9 (80.0-98.0) fL MCH 29.9 (27.0-33.0) pg MCHC 32.9 (31.0-36.0) g/dl RDW 13.5 (11.0-16.0) % Plt Count 228 (160-400) X10*3/uL MPV 9.7 (9.4-12.4) fL Immature Gran % (Auto) 0.5 H (0.0-0.4) % Neut % (Auto) 65.4 (45-73) % Lymph % (Auto) 17.1 L (20-40) % [place] % (Auto) 7.6 (2-11) % Eos % (Auto) 9.0 H (0-4) % Baso % (Auto) 0.4 (0-2) % Lymph # (Auto) 1.9 (1.2-4.9) X10*3/uL [place] # (Auto) 0.9 (0.1-1.2) X10*3/uL Eos # (Auto) 1.0 H (0.0-0.4) X10*3/uL Baso # (Auto) 0.1 (0.0-0.2) X10*3/uL Abs Immat Gran (auto) 0.06 H (0.00-0.03) X10*3/uL Absolute Neuts (auto) 7.3 (2.0-8.3) x10*3/uL Absolute Nucleated RBC 0.000 (0.0-0.012) X10*3/uL Nucleated RBC % (auto) 0.0 (0.0-0.2) /100WBC PT 11.1 (11.1-13.3) SEC INR 0.9 (0.9-1.1) Sodium 137 (135-145) mmol/L Potassium 4.9 (3.3-5.1) mmol/L Chloride 107 (96-108) mmol/L Carbon Dioxide 20 L (22-29) mmol/L Anion Gap 15 (12-20) BUN 21 H (9-16) mg/dL Creatinine 1.20 (0.5-1.4) mg/dL Estim Creat Clear Calc 57.4 Estimated GFR 60 Random Glucose 92 (60-115) mg/dL Calcium 9.3 (8.4-10.2) mg/dL Total Bilirubin 0.4 (0.0-1.0) mg/dL AST 19 (5-37) U/L ALT 17 (0-40) U/L Alkaline Phosphatase 48 (39-117) U/L C-Reactive Protein 0.17 (< or = 0.50) mg/dL Total Protein 7.6 (6.5-8.0) g/dL Albumin 4.2 (3.5-5.0) g/dL Discharge Plan Discharge Clinical Impression: Rash and nonspecific skin eruption Patient Disposition: Home, Self-Care Instructions: Acute Rash (ED), Contact Dermatitis (ED) Prescriptions: No Action (DME) onetouch glucometer See Rx Instructions .Route .MEDSUPPLY Qty: 1 0RF Rx Instructions: As directed (DME) lancets [OneTouch Delica Lancets] 33 gauge misc See Rx Instructions .ROUTE .MEDSUPPLY Qty: 100 11RF Rx Instructions: Check by finger stick route 4 times every day (DME) AeroEclipse II Nebulizer Misc See Rx Instructions .Route Qty: 1 0RF Rx Instructions: As directed aspirin 81 mg tablet,delayed release (DR/EC) 81 mg PO DAILY Qty: 90 3RF (DME) pen needle, diabetic [BD Ultra-Fine Short Pen Needle] 31 gauge x 5/16 needle See Rx Instructions .ROUTE .MEDSUPPLY Qty: 1200 0RF Rx Instructions: As directed daily with Lantus albuterol sulfate [Ventolin HFA] 90 mcg/actuation HFA aerosol inhaler 2 puff inhalation Q6H PRN (Reason: shortness of breath or wheezing) 30 Days Qty: 18 2RF (DME) OneTouch Verio test strips Strip See Rx Instructions .ROUTE .MEDSUPPLY Qty: 100 11RF Rx Instructions: Use 3 times a day to test BG daily for 30 days albuterol sulfate 2.5 mg /3 mL (0.083 %) solution for nebulization 2.5 mg inhalation Q6H PRN (Reason: bronchospasm) 30 Days Qty: 360 0RF tamsulosin 0.4 mg capsule 0.4 mg PO DAILY Qty: 90 1RF fluticasone propion-salmeterol [Wixela Inhub] 500-50 mcg/dose blister with device 1 inh PO BID 90 Days Qty: 180 3RF amlodipine 5 mg tablet 5 mg PO DAILY 90 Days Qty: 90 1RF Jardiance 25 mg tablet 25 mg PO QAM Qty: 30 6RF omeprazole 20 mg capsule,delayed release(DR/EC) 20 mg PO BID Qty: 180 2RF folic acid 1 mg tablet 1 mg PO DAILY Qty: 90 1RF Combivent Respimat 20-100 mcg/actuation mist 1 puff inhalation Q6H PRN (Reason: wheezing) 30 Days Qty: 4 4RF Tradjenta 5 mg tablet 5 mg PO DAILY Qty: 30 6RF pramipexole 0.125 mg tablet 0.125 mg PO BEDTIME 90 Days Qty: 90 1RF ipratropium-albuterol 0.5 mg-3 mg(2.5 mg base)/3 mL solution for nebulization 3 ml inhalation Q6H PRN (Reason: for wheezing) 30 Days Qty: 90 3RF lisinopril 20 mg tablet 20 mg PO DAILY 90 Days Qty: 90 1RF gabapentin 300 mg capsule 600 mg PO DAILY 90 Days Qty: 180 3RF trazodone 50 mg tablet 50 mg PO BEDTIME PRN (Reason: sleep) 90 Days Qty: 90 0RF atorvastatin 20 mg tablet 20 mg PO BEDTIME 90 Days Qty: 90 0RF sodium polystyrene sulfonate Powder 30 g PO MOFR PRN (Reason: high potassium) triamcinolone acetonide 0.1 % ointment 1 appl topical BID 7 Days Qty: 30 0RF cyclobenzaprine 10 mg tablet 10 mg PO TID PRN (Reason: muscle spasm) Qty: 10 0RF acetaminophen [Tylenol] 325 mg capsule 650 mg PO Q4H PRN (Reason: pain) Qty: 30 0RF benzonatate 100 mg capsule 100 mg PO TID PRN (Reason: cough) Qty: 20 0RF Otezla 30 mg tablet 30 mg PO BID (DME) diabetic shoes and inserts 9 See Rx Instructions .Route .MEDSUPPLY Qty: 1 0RF Rx Instructions: As directed clotrimazole-betamethasone 1-0.05 % cream 1 appl topical BID Qty: 15 0RF cholecalciferol (vitamin D3) 25 mcg (1,000 unit) capsule 25 mcg PO DAILY 90 Days Qty: 90 1RF insulin glargine [Lantus Solostar U-100 Insulin] 100 unit/mL (3 mL) insulin pen 30 unit subcut QPM 90 Days Qty: 27 3RF Patient Comments: pt took 15 units yesterday Referrals: Physician,Unknown J [Primary Care Provider] -
[2023-11-26 11:52] VITALS: BP 120/78; PULSE 94; RESP 18; TEMP 36.8; O2SAT 97; BMI 27.9
[2023-11-26 12:54] LABS: MANUAL DIFF FLAG NO
[2023-11-26 12:55] LABS: Basophils Absolute Auto 0.1 X10*3/uL (0.0-0.2); Basophils Percent Auto 0.4 % (0-2); Hematocrit 42.9 % (42.0-52.0); Hemoglobin 14.1 g/dl (14.0-18.0); Imm Gran Abs Auto 0.06 X10*3/uL (0.00-0.03); Imm Gran Pct Auto 0.5 % (0.0-0.4); Lymphocytes Absolute Auto 1.9 X10*3/uL (1.2-4.9); Lymphocytes Percent Auto 17.1 % (20-40); Mean Corpuscular HGB Conc 32.9 g/dl (31.0-36.0); Mean Corpuscular Hemoglobin 29.9 pg (27.0-33.0); Mean Corpuscular Volume 90.9 fL (80.0-98.0); Mean Platelet Volume 9.7 fL (9.4-12.4); Monocytes Absolute Auto 0.9 X10*3/uL (0.1-1.2); Monocytes Percent Auto 7.6 % (2-11); Neutrophils Absolute Auto 7.3 x10*3/uL (2.0-8.3); Neutrophils Percent Auto 65.4 % (45-73); Platelet Count 228 X10*3/uL (160-400); Red Blood Count 4.72 X10*6/uL (4.60-5.80); Red Cell Distribution Width 13.5 % (11.0-16.0); White Blood Count 11.2 X10*3/uL (4.8-10.8)
[2023-11-26 13:06] LABS: INTERNATIONAL NORM RATIO 0.9 (0.9-1.1); Prothrombin Time 11.1 SEC (11.1-13.3)
[2023-11-26 13:07] LABS: Alanine Aminotransferase 17 U/L (0-40); Albumin Level 4.2 g/dL (3.5-5.0); Alkaline Phosphatase 48 U/L (39-117); Anion Gap 15 (12-20); Aspartate Amino Transferase 19 U/L (5-37); Bilirubin Total 0.4 mg/dL (0.0-1.0); Blood Urea Nitrogen 21 mg/dL (9-16); C Reactive Protein 0.17 mg/dL (< or = 0.50); Calcium 9.3 mg/dL (8.4-10.2); Carbon Dioxide 20 mmol/L (22-29); Chloride 107 mmol/L (96-108); Creatinine Clr Calc Pharmacy 57.4; Estimated Glomerular Filt Rate 60; Glucose Random 92 mg/dL (60-115); Potassium 4.9 mmol/L (3.3-5.1); Sodium 137 mmol/L (135-145); Total Protein 7.6 g/dL (6.5-8.0)
[2023-11-26 13:34] LABS: Erythrocyte Sedimentation Rate 11 MM/HR (0-15)
== END 2023-11-26 13:38 | disposition home or self-care (01) ==
PROVIDERS: Nurse Practitioner Family; Emergency Provider Emergency Medicine
DX: R21 Rash and other nonspecific skin eruption (principal); L29.9 Pruritus, unspecified; Z79.899 Other long term (current) drug therapy
CPT/HCPCS: 36415; 80053; 85025; 85610; 85652; 86140; 99282; 99283

== ENCOUNTER 2023-12-07 13:30 | Outpatient (AMB) | payer OTHER, SELFPAY ==
--- NOTE | 2023-12-07 13:59 | MHC.OFFVIS ---
Intake Vital Signs 12/07/23 14:01 Height 5 ft 7 in Weight 177 lb 14.609 oz BMI 27.9 BP 122/60 Blood Pressure Location Rt brachial Position Sitting Pulse 84 Pulse Source Pulse Oximeter Pulse Oximetry (%) 96 Oxygen Delivery Method Room Air Intake Visit Reasons: rotator cuff tendinopathy Intake Note: Patient last seen 07/20/23 presents today for follow up. C/o hand and shoulder pain. Uses tylenol, motrin, patches, but these don't provide relief. He has also done PT. He is asking for oxycodone. Marketing Segment Manager Required: No Accompanied by: Self / Same As Patient Allergies doxycycline Allergy (Intermediate, Verified 12/07/23 14:03) Itching levofloxacin Allergy (Intermediate, Verified 12/07/23 14:03) Itching metformin Allergy (Intermediate, Verified 12/07/23 14:03) diarrhea morphine [MORPHINE] Allergy (Intermediate, Verified 12/07/23 14:03) ITCHING tetracycline Allergy (Intermediate, Verified 12/07/23 14:03) Itching cefazolin Adverse Reaction (Mild, Verified 12/07/23 14:03) Diarrhea, itchy Medication List - Last Reconciled 12/07/23 by Jaqueline Loaiza MD acetaminophen (Tylenol) 650 mg (2 x 325 mg) PO Q4H PRN albuterol sulfate 2.5 mg (3 mL) inhalation Q6H PRN 30 days amlodipine 5 mg PO DAILY 90 days apremilast (Otezla) 30 mg PO BID aspirin 81 mg PO DAILY atorvastatin 20 mg PO BEDTIME 90 days benzonatate 100 mg PO TID PRN blood sugar diagnostic ([employer] Verio test strips) Use 3 times a day to test BG daily for 30 days cholecalciferol (vitamin D3) 25 mcg PO DAILY 90 days clotrimazole-betamethasone 1-0.05 % 1 appl topical BID cyclobenzaprine 10 mg PO TID PRN [diabetic shoes and inserts As directed] empagliflozin (Jardiance) 25 mg PO QAM fluticasone propion-salmeterol 500-50 mcg/dose (Wixela Inhub) 1 inh PO BID 90 days folic acid 1 mg PO DAILY gabapentin 600 mg (2 x 300 mg) PO DAILY 90 days insulin glargine (Lantus Solostar U-100 Insulin) 30 units (0.3 mL) subcut QPM 90 days ipratropium-albuterol 0.5 mg-3 mg(2.5 mg base)/3 mL 3 mL inhalation Q6H PRN 30 days ipratropium-albuterol 20-100 mcg/actuation (Combivent Respimat) 1 puff inhalation Q6H PRN 30 days lancets ([email or web address] Lancets) Check by finger stick route 4 times every day linagliptin (Tradjenta) 5 mg PO DAILY lisinopril 20 mg PO DAILY 90 days nebulizers (AeroEclipse II Nebulizer) As directed omeprazole 20 mg PO BID [[employer] glucometer As directed] pen needle, diabetic (BD Ultra-Fine Short Pen Needle) As directed daily with Lantus pramipexole 0.125 mg PO BEDTIME 90 days sodium polystyrene sulfonate 30 grams PO MOFR PRN tamsulosin 0.4 mg PO DAILY trazodone 50 mg PO BEDTIME PRN 90 days triamcinolone acetonide 0.1% 1 appl topical BID 1 week Ventolin HFA 90 mcg/actuation (albuterol sulfate) 2 puffs inhalation Q6H PRN 30 days NS HPI HPI Comments History of Present Illness Details 72-year-old male with psoriasis returns for follow-up. Last visit, his right shoulder was injected with Kenalog. He states that it has helped him for a few months. Only recently has been having some pain and limitation of range of motion but overall better. He has been having triggering of his right 4th and 5th fingers. Requesting oxycodone. Initial history: This is a 72-year-old male with a past medical history of psoriasis presents for evaluation of multiple joint pain. Three months ago patient started having locking of his left index and middle fingers. Over the last 3 weeks he has been having pain in his right wrist. The pain is worse at night associated with swelling and morning stiffness. He takes Tylenol without relief. States that he has had psoriasis for many years, at least 10 years. Was started on Otezla by Dermatology about a year ago. He denies any back pain. [facility] Medical History Hypertensive retinopathy Nicotine dependence, cigarettes, uncomplicated Tubular adenoma of colon Restless leg syndrome Mild persistent asthma CKD stage 3 due to type 2 diabetes mellitus Diabetes mellitus, with long-term current use of insulin Pure hypercholesterolemia GERD (gastroesophageal reflux disease) Precordial chest pain Essential hypertension Non-rheumatic aortic stenosis Loss of hearing Anemia Asthma Surgical History History of esophagogastroduodenoscopy (EGD) History of colonoscopy History of cholecystectomy History of implantation of penile prosthesis Family History Father No problems noted. Mother No problems noted. Family/Other FH: mental illness Brother In good health Sister In good health Son In good health Daughter In good health Other Mental health disorder Social History Household Members: None Housing: Apartment Do you presently have visiting nurse or other home services: No Alcohol intake: current Alcohol intake frequency: holidays/special occasions only Alcohol type: hard liquor Patient Tobacco Use Status: Current everyday Tobacco user Tobacco use type: Cigarette Cigarettes Per Day: 10 e-Cigarette/Vaping Use: Never Used Second Hand Smoke Exposure: No service: No Current occupational status: disabled Cognitive needs: No Hearing needs: No Vision needs: Yes Review of Systems Musc Reports arthralgias, Reports limited range of motion and Reports stiffness Physical Exam Vital Signs: Last Vital Signs Pulse 84 12/07/23 14:01 BP 122/60 12/07/23 14:01 Pulse Ox 96 12/07/23 14:01 Oxygen Delivery Method Room Air 12/07/23 14:01 BMI result Body Mass Index 27.9 Const General: cooperative, healthy appearing and comfortable Nutritional Appearance: overweight Orientation/consciousness: patient oriented x3 HEENT Head: Yes normocephalic and Yes atraumatic Mouth: moist mucous membranes Resp Effort & Inspection: normal respiratory effort and able to speak in complete sentences Neuro General: patient oriented x3 Extrem Other: Normal range of motion of both shoulders Negative empty can test on the right Negative infraspinatus test bilaterally No active synovitis Osteoarthritic changes of both hands Mild right 4th and 5th flexor tendon tenderness without triggering Assessment & Plan Assessment & Plan (1) Psoriatic arthritis: Code(s): L40.50 - Arthropathic psoriasis, unspecified Plan: This is a 72-year-old male with psoriasis who presents for follow-up. in 12/2022 patient presented with multiple trigger fingers and right wrist synovitis. This was likely an episode of psoriatic arthritis. He received steroid injection for left 2nd and 3rd trigger fingers with resolution of the trigger fingers and right wrist swelling. He also took methotrexate for 2 months. Since then patient has had no active synovitis and trigger fingers have resolved. For now patient can continue with the Otezla which was prescribed by Dermatology for psoriasis. Patient was evaluated a few times in clinic with no features of inflammatory arthritis. At this point patient can follow-up as needed (2) Trigger finger of left hand: Code(s): M65.30 - Trigger finger, unspecified finger Qualifiers: Trigger finger location: index finger Qualified Code(s): M65.322 - Trigger finger, left index finger Plan: Left 2nd and 3rd trigger fingers were injected in clinic 01/22 with resolution. Today patient is complaining of recurrence. He prefers to postpone further injections. I suggested wearing finger splints. (3) Rotator cuff arthropathy of right shoulder: Code(s): M12.811 - Other specific arthropathies, not elsewhere classified, right shoulder Plan: Injected 07/2023. With improvement. Today patient has good range of motion of his right shoulder. Follow-up as needed Plan I spent 29 minutes reviewing patient's chart, evaluating patient, counseling patient and documenting in the chart Coding Level of Care Code Est Pt Level 4 (04947) Diagnoses Psoriatic arthritis L40.50 Trigger index finger of left hand M65.322 Trigger finger location: index finger Rotator cuff arthropathy of right shoulder M12.811
[2023-12-07 14:01] VITALS: BP 122/60; PULSE 84; O2SAT 96; BMI 27.9
== END 2023-12-07 14:47 | disposition home or self-care (01) ==
PROVIDERS: Visit Provider Student in an Organized Health Care Education/Training Program
DX: L40.50 Arthropathic psoriasis, unspecified (principal); M65.322 Trigger finger, left index finger; M12.811 Other specific arthropathies, not elsewhere classified, right shoulder
CPT/HCPCS: 99214

== ENCOUNTER → 2023-12-07 13:30 | Outpatient (BNVA) | payer OTHER, SELFPAY | PROVIDERS: Visit Provider Student in an Organized Health Care Education/Training Program | DX: L40.50 Arthropathic psoriasis, unspecified (principal); M65.322 Trigger finger, left index finger; M12.811 Other specific arthropathies, not elsewhere classified, right shoulder | CPT/HCPCS: 99212 ==

== ENCOUNTER 2023-12-12 09:33 | Outpatient (AMB) | payer OTHER, SELFPAY ==
[2023-12-12 09:47] VITALS: BP 142/62; PULSE 88; O2SAT 97; BMI 28.2
--- NOTE | 2023-12-12 09:47 | MHC.PC.OV ---
Vital Signs 12/12/23 09:47 12/12/23 11:52 Height 5 ft 7 in Weight 180 lb BMI 28.2 BP 142/62 H 140/60 H Blood Pressure Location Lt brachial Lt brachial Position Sitting Sitting Pulse 88 Pulse Source Pulse Oximeter Pulse Oximetry (%) 97 Oxygen Delivery Method Room Air Intake Visit Reasons: 4 month f/u Family Helper Required: No Accompanied by: Self / Same As Patient Allergies doxycycline Allergy (Intermediate, Verified 12/12/23 10:09) Itching levofloxacin Allergy (Intermediate, Verified 12/12/23 10:09) Itching metformin Allergy (Intermediate, Verified 12/12/23 10:09) diarrhea morphine [MORPHINE] Allergy (Intermediate, Verified 12/12/23 10:09) ITCHING tetracycline Allergy (Intermediate, Verified 12/12/23 10:09) Itching cefazolin Adverse Reaction (Mild, Verified 12/12/23 10:09) Diarrhea, itchy Medication List - Last Reconciled 12/12/23 by Sheba Corbett MD acetaminophen (Tylenol) 650 mg (2 x 325 mg) PO Q4H PRN albuterol sulfate 2.5 mg (3 mL) inhalation Q6H PRN 30 days amlodipine 5 mg PO DAILY 90 days apremilast (Otezla) 30 mg PO BID aspirin 81 mg PO DAILY atorvastatin 20 mg PO BEDTIME 90 days benzonatate 100 mg PO TID PRN blood sugar diagnostic (OneTouch Verio test strips) Use 3 times a day to test BG daily for 30 days cholecalciferol (vitamin D3) 25 mcg PO DAILY 90 days clotrimazole-betamethasone 1-0.05 % 1 appl topical BID cyclobenzaprine 10 mg PO TID PRN [diabetic shoes and inserts As directed] empagliflozin (Jardiance) 25 mg PO QAM fluticasone propion-salmeterol 500-50 mcg/dose (Wixela Inhub) 1 inh PO BID 90 days folic acid 1 mg PO DAILY gabapentin 600 mg (2 x 300 mg) PO DAILY 90 days insulin glargine (Lantus Solostar U-100 Insulin) 30 units (0.3 mL) subcut QPM 90 days ipratropium-albuterol 0.5 mg-3 mg(2.5 mg base)/3 mL 3 mL inhalation Q6H PRN 30 days ipratropium-albuterol 20-100 mcg/actuation (Combivent Respimat) 1 puff inhalation Q6H PRN 30 days lancets ([employer] Lancets) Check by finger stick route 4 times every day linagliptin (Tradjenta) 5 mg PO DAILY lisinopril 20 mg PO DAILY 90 days nebulizers (AeroEclipse II Nebulizer) As directed omeprazole 20 mg PO BID [onetouch glucometer As directed] pen needle, diabetic (BD Ultra-Fine Short Pen Needle) As directed daily with Lantus pramipexole 0.125 mg PO BEDTIME 90 days sodium polystyrene sulfonate 30 grams PO MOFR PRN tamsulosin 0.4 mg PO DAILY trazodone 50 mg PO BEDTIME PRN 90 days triamcinolone acetonide 0.1% 1 appl topical BID 1 week Ventolin HFA 90 mcg/actuation (albuterol sulfate) 2 puffs inhalation Q6H PRN 30 days NS Tobacco use date assessed: 12/12/23 Fall risk assessment: No Falls in past year Last assessed Fall Risk: 12/12/23 Dental Screening Dental Screen Date: 12/12/23 Did you have a dental visit in the last 12 months?: Yes Did you have a dental problem in the last 6 months where you did not have access to dental care?: No Was dental information given to patient?: Patient has dentist HPI HPI Comments History of Present Illness Details This is a 73-year-old male with diabetes mellitus type 2 on long-term current use of insulin, hypertension, pure hypercholesterolemia, psoriatic arthritis, GERD and insomnia that comes today for follow-up on his conditions. A1c within goal. Blood pressure borderline normal to elevated and will be recheck in 3 weeks. I will increase lisinopril. LDL within goal. Psoriatic arthritis has been stable with Otezla. GERD stable with PPIs. Has taking trazodone 100 mg at bedtime with no significant improvement and I will change it to zolpidem. No chest pain or shortness of breath. [facility] Medical History (Updated 12/12/23 @ 11:54 by Sheba Corbett MD) Hypertensive retinopathy Nicotine dependence, cigarettes, uncomplicated Tubular adenoma of colon Restless leg syndrome Mild persistent asthma CKD stage 3 due to type 2 diabetes mellitus Diabetes mellitus, with long-term current use of insulin Pure hypercholesterolemia GERD (gastroesophageal reflux disease) Precordial chest pain Essential hypertension Non-rheumatic aortic stenosis Loss of hearing Anemia Asthma Surgical History History of esophagogastroduodenoscopy (EGD) History of colonoscopy History of cholecystectomy History of implantation of penile prosthesis Family History Father No problems noted. Mother No problems noted. Family/Other FH: mental illness Brother In good health Sister In good health Son In good health Daughter In good health Other Mental health disorder Social History Household Members: None Housing: Apartment Do you presently have visiting nurse or other home services: No Alcohol intake: current Alcohol intake frequency: holidays/special occasions only Alcohol type: hard liquor Patient Tobacco Use Status: Current everyday Tobacco user Tobacco use type: Cigarette Cigarettes Per Day: 10 e-Cigarette/Vaping Use: Never Used Second Hand Smoke Exposure: No service: No Current occupational status: disabled Cognitive needs: No Hearing needs: No Vision needs: Yes Questionnaire PHQ-9 Over the last 2 weeks, how often have you been bothered by any of the following problems? 1. Little interest or pleasure in doing things: not at all 2. Feeling down, depressed, or hopeless: not at all 3. Trouble falling or staying asleep, or sleeping too much: not at all 4. Feeling tired or having little energy: not at all 5. Poor appetite or overeating: not at all 6. Feeling bad about yourself - or that you are a failure or have let yourself or your family down: not at all 7. Trouble concentrating on things, such as reading the newspaper or watching television: not at all 8. Moving or speaking so slowly that other people could have noticed. Or the opposite - being so fidgety or restless that you have been moving around a lot more than usual: not at all 9. Thoughts that you would be better off or of hurting yourself in some way: not at all Total score: 0 Depression Screening Interpretation: Negative Depression Screening Done: Yes 79187 - PHQ-9 Billing: Yes Source: Developed by Drs. Wil Cummings, Nataly Summers, Benjy Grimes and colleagues, with an educational champ from [employer]. Thrive Questionnaire Date Thrive assessed: 12/12/23 I am a: Patient What is your living situation today?: I have a steady place to live Within the past 12 months, did the food you bought not last and you didn't have the money to get more?: Never true Within the past 12 months, did you worry whether your food would run out before you got money to buy more?: Never true Do you have trouble paying for medicines?: No Do you have trouble getting transportation to medical appointments?: No Do you have trouble paying your heating and electricity bill?: No Do you have trouble taking care of your child, family member or friend?: No Do you have trouble with day-to-day activities such as bathing, preparing meals, shopping, managing finances, etc.?: No Are you currently unemployed and looking for a job?: No Are you interested in more education?: No Currently or been in a relationship where the following occur: no concerns reported THRIVE Score: 0 AUDIT C Alcohol Use Questionnaire (AUDIT-C) 1. How often do you have a drink containing alcohol?: 2-4 times a month 2. How many drinks containing alcohol do you have on a typical day when you are drinking?: 1 or 2 3. How often do you have six or more drinks on one occasion?: Never Total Score: 2 Score Reviewed/Action Taken: No HENRIETTA-7 AMB Questionnaire HENRIETTA-7 Date HENRIETTA - 7 assessed: 12/12/23 Feeling nervous, anxious, or on edge: 0 = Not at all Not being able to stop or control worryin = Not at all Worrying too much about different things: 0 = Not at all Trouble relaxin = Not at all Being so restless that it is hard to sit still: 0 = Not at all Becoming easily annoyed or irritable: 0 = Not at all Feeling afraid as if something awful might happen: 0 = Not at all Total EHNRIETTA-7 score (0-4 normal; 5-9 mild; 10-14 moderate; 15-21 severe): 0 Source: Developed by Nataly Guillaume, Benjy Grimes and colleagues, with an educational champ from [employer]. Review of Systems Const All systems reviewed & are unremarkable except as noted in HPI and below Eyes Reports no additional complaints, Denies change in vision and Denies other visual disturbances Card Denies chest pain at rest, Denies chest pain with activity, Denies edema, Denies irregular heart rhythm, Denies claudication, Denies dyspnea, Denies dyspnea on exertion, Denies orthopnea, Denies paroxysmal nocturnal dyspnea and Denies slow heart rate Resp Denies cough, Denies dyspnea and Denies dyspnea on exertion GI Denies abdominal pain, Denies change in bowel habits, Denies excessive flatus, Denies nausea and Denies vomiting Denies urinary hesitancy, Denies urinary incontinence and Denies urinary urgency Musc Denies abnormal gait, Denies atrophy, Denies deformity and Denies limited range of motion Skin/Breast Denies bleeding lesions, Denies changing lesions and Denies rash Neuro Denies abnormal gait and Denies lack of coordination Physical exam (Primary Care) Vital Signs: Last Vital Signs Pulse 88 12/12/23 09:47 BP 142/62 H 12/12/23 09:47 Pulse Ox 97 12/12/23 09:47 Oxygen Delivery Method Room Air 12/12/23 09:47 BMI result Body Mass Index 28.2 Tobacco/Smoking Status: Tobacco use Status Tobacco use date assessed 12/12/23 12/12/23 09:50 Patient Tobacco Use Status Current everyday Tobacco 12/12/23 09:50 Tobacco use type Cigarette 12/12/23 09:50 e-Cigarette/Vaping Use Never Used 12/12/23 09:50 PHQ-9: PHQ-9 Score PHQ-9: Total score 0 12/12/23 10:11 Depression Screening Interpretation: Negative Thrive Assessment: Date of Thrive Assessment Date Thrive assessed 12/12/23 12/12/23 09:50 Currently or been in a relationship where the following occur: no concerns reported Eyes General: appearance normal, both eyes and all related structures Eyelids: Yes eyelids normal Conjunctivae: conjunctivae normal Neck Neck: Yes normal visual inspection and Yes supple Resp Effort & Inspection: normal respiratory effort Auscultation: clear to auscultation bilaterally Cardio Jugular venous distension: no JVD Rate: regular rate Rhythm: regular rhythm Heart sounds: S1 normal heart sound present and S2 normal heart sound present Extrem General: Yes full ROM Results AMB Hemoglobin A1c AMB Hemoglobin A1c 7.0 % Last Edit by Cristal Sarmiento CMA on 12/12/23 10:05 Results Reviewed Results Reviewed: Laboratory Last Values Hgb A1c (Clinic) 7.0 % (4.0-6.0) H 12/12/23 09:50 Assessment and Plan Assessment & Plan (1) Diabetes mellitus, with long-term current use of insulin: Code(s): E11.9 - Type 2 diabetes mellitus without complications; Z79.4 - long-term (current) use of insulin Qualifiers: Diabetes mellitus type: type 2 Diabetes mellitus complication status: with hyperglycemia Qualified Code(s): E11.65 - Type 2 diabetes mellitus with hyperglycemia; Z79.4 - long-term (current) use of insulin Plan: Continue insulin and Jardiance. A1c goal is equal or less than 7%. (2) Pure hypercholesterolemia: Code(s): E78.00 - Pure hypercholesterolemia, unspecified Plan: Continue statins. LDL goal is less than 70. (3) GERD (gastroesophageal reflux disease): Code(s): K21.9 - Gastro-esophageal reflux disease without esophagitis Qualifiers: Esophagitis presence: esophagitis presence not specified Qualified Code(s): K21.9 - Gastro-esophageal reflux disease without esophagitis Plan: Continue PPIs. (4) Psoriatic arthritis: Code(s): L40.50 - Arthropathic psoriasis, unspecified Plan: Continue Otezla. (5) Essential hypertension: Code(s): I10 - Essential (primary) hypertension Plan: Continue amlodipine. Increase lisinopril. Blood pressure goal is equal or less than 130/80. Recheck blood pressure with nurse navigator in 3 weeks. (6) Insomnia: Code(s): G47.00 - Insomnia, unspecified Plan: Discontinue trazodone. Start zolpidem as needed. Orders: Orders Vitamin D 25-OH Total Today E55.9 - Vitamin D deficiency, unspecified AMB Hemoglobin A1c Today Z13.9 - Encounter for screening, unspecified Lipid Panel Today E78.5 - Hyperlipidemia, unspecified Microalbumin, Random (w Creat) Today E11.9 - Type 2 diabetes mellitus without complications Comprehensive [place]. Panel Fast Today I10 - Essential (primary) hypertension Medications: New zolpidem 5 mg PO BEDTIME 30 days PRN 30 tabs 0RF insomnia lisinopril 30 mg PO DAILY 90 days 90 tabs 1RF cholestyramine (with sugar) 4 gram administer w/meal; avoid other meds within 1hr before or 4-6hr after dose 4 grams PO BID 30 days 378 grams 0RF Discontinued lisinopril Discontinued Reason: No Longer Medically Relevant 20 mg PO DAILY 90 days 90 tabs 1RF I10 - Essential (primary) hypertension trazodone Discontinued Reason: Patient Refused 50 mg PO BEDTIME 90 days PRN 90 tabs 0RF sleep Coding Level of Care Code Est Pt Level 4 (78575) Diagnoses Type 2 diabetes mellitus with hyperglycemia, with long-term current use of insulin E11.65; Z79.4 Diabetes mellitus type: type 2 Diabetes mellitus complication status: with hyperglycemia Pure hypercholesterolemia E78.00 Gastroesophageal reflux disease, unspecified whether esophagitis present K21.9 Esophagitis presence: esophagitis presence not specified Psoriatic arthritis L40.50 Essential hypertension I10 Insomnia G47.00 Time Spent (min) 25
[2023-12-12 11:52] VITALS: BP 140/60
== END 2023-12-12 10:21 | disposition home or self-care (01) ==
PROVIDERS: PCP Internal Medicine; Visit Provider Internal Medicine
DX: E11.65 Type 2 diabetes mellitus with hyperglycemia (principal); Z79.4 Long term (current) use of insulin; L40.50 Arthropathic psoriasis, unspecified; E78.00 Pure hypercholesterolemia, unspecified; K21.9 Gastro-esophageal reflux disease without esophagitis; I10 Essential (primary) hypertension; G47.00 Insomnia, unspecified
CPT/HCPCS: 83036; 99214

== ENCOUNTER 2024-02-19 15:21 | Outpatient (REF) | payer OTHER, SELFPAY ==
[2024-02-19 17:07] LABS: Hematocrit 41.8 % (42.0-52.0); Hemoglobin 13.7 g/dl (14.0-18.0); Mean Corpuscular HGB Conc 32.8 g/dl (31.0-36.0); Mean Corpuscular Hemoglobin 29.9 pg (27.0-33.0); Mean Corpuscular Volume 91.3 fL (80.0-98.0); Mean Platelet Volume 10.2 fL (9.4-12.4); Platelet Count 225 X10*3/uL (160-400); Red Blood Count 4.58 X10*6/uL (4.60-5.80); Red Cell Distribution Width 13.4 % (11.0-16.0); White Blood Count 10.1 X10*3/uL (4.8-10.8)
[2024-02-19 17:18] LABS: Appearance Urine Clear; Color Urine Yellow; Glucose Urine UA >=1000 mg/dL (Negative); Leukocyte Esterase Urine Small (1+) (Negative); Nitrite Urine Negative (Negative); PH 5.5 (5.0-9.0); UMIC TRIGGER UA YES; Urine Blood Negative (Negative); Urine Ketones Negative (Negative); Urine Protein Trace mg/dL (Neg-Trace)
[2024-02-19 17:32] LABS: Bacteria Urine None Seen (None Seen); Hyaline Casts Urine 0-2 /LPF (0-2); RBC Urine 0-2 /HPF (0-2); Squamous Epithelial Cell Urine 0-2 /HPF (0-2); WBC Urine 0-5 /HPF (0-5)
[2024-02-19 17:42] LABS: Calcium 9.7 mg/dL (8.4-10.2)
[2024-02-19 17:45] LABS: Creatinine Urine 97.51 mg/dL; Microalbum/Creatinine Ratio Ur 22.5 ug/mg cr (<30); Protein/Creatinine Ratio, Ur 0.13 (<0.2); Total Protein Urine Random 13 mg/dL (<12)
[2024-02-19 17:47] LABS: Parathyroid Hormone Intact 52.9 pg/mL (8.7-77.1)
[2024-02-19 18:05] LABS: Vitamin D 25-OH Total 27.4 ng/mL (>30)
[2024-02-19 18:34] LABS: Albumin Level 4.3 g/dL (3.5-5.0); Anion Gap 15 (12-20); Blood Urea Nitrogen 32 mg/dL (9-16); Calcium 9.7 mg/dL (8.4-10.2); Carbon Dioxide 15 mmol/L (22-29); Chloride 111 mmol/L (96-108); Estimated Glomerular Filt Rate 30; Glucose Random 128 mg/dL (60-115); Magnesium 2.1 mg/dL (1.6-2.6); Phosphorus 4.4 mg/dL (2.7-4.5); Sodium 135 mmol/L (135-145)
== END 2024-02-19 15:22 | disposition home or self-care (01) ==
LOC: HO.LAB 15:21
PROVIDERS: PCP Internal Medicine; Visit Provider Internal Medicine Nephrology
DX: E11.22 Type 2 diabetes mellitus with diabetic chronic kidney disease (principal); I12.9 Hypertensive chronic kidney disease with stage 1 through stage 4 chronic kidney disease, or unspecified chronic kidney disease; N18.32 Chronic kidney disease, stage 3b; N25.0 Renal osteodystrophy; R82.90 Unspecified abnormal findings in urine
CPT/HCPCS: 36415; 80048; 81001; 82040; 82043; 82306; 82310; 82570; 83735; 83970; 84100; 84156; 85027; 87086

== ENCOUNTER 2024-03-11 14:08 | Outpatient (REF) | payer OTHER, SELFPAY ==
[2024-03-11 15:47] LABS: Appearance Urine Clear; Color Urine Yellow; Glucose Urine UA >=1000 mg/dL (Negative); Leukocyte Esterase Urine Negative (Negative); Nitrite Urine Negative (Negative); PH 5.5 (5.0-9.0); Specific Gravity - Urine >= 1.030 (1.005-1.025); UMIC TRIGGER UA YES; Urine Blood Negative (Negative); Urine Ketones Negative (Negative); Urine Protein Trace mg/dL (Neg-Trace)
[2024-03-11 15:52] LABS: Bacteria Urine None Seen (None Seen); Hyaline Casts Urine 0-2 /LPF (0-2); RBC Urine 0-2 /HPF (0-2); Squamous Epithelial Cell Urine 0-2 /HPF (0-2); WBC Urine 0-5 /HPF (0-5)
[2024-03-11 16:14] LABS: Anion Gap 11 (12-20); Blood Urea Nitrogen 19 mg/dL (9-16); Calcium 9.4 mg/dL (8.4-10.2); Carbon Dioxide 24 mmol/L (22-29); Chloride 107 mmol/L (96-108); Estimated Glomerular Filt Rate 57; Potassium 3.8 mmol/L (3.3-5.1); Sodium 138 mmol/L (135-145)
[2024-03-11 16:26] LABS: Creatinine Urine 92.66 mg/dL; Microalbum/Creatinine Ratio Ur 70.1 ug/mg cr (<30); Protein/Creatinine Ratio, Ur 0.22 (<0.2); Total Protein Urine Random 20 mg/dL (<12)
== END 2024-03-11 14:09 | disposition home or self-care (01) ==
LOC: HO.LAB 14:08
PROVIDERS: PCP Internal Medicine; Visit Provider Internal Medicine Nephrology
DX: E11.22 Type 2 diabetes mellitus with diabetic chronic kidney disease (principal); I12.9 Hypertensive chronic kidney disease with stage 1 through stage 4 chronic kidney disease, or unspecified chronic kidney disease; N18.32 Chronic kidney disease, stage 3b; E78.5 Hyperlipidemia, unspecified
CPT/HCPCS: 36415; 80051; 81001; 82043; 82310; 82565; 82570; 84156; 84520

== ENCOUNTER 2024-03-18 08:16 | Outpatient (REF) | payer OTHER, SELFPAY ==
[2024-03-18 09:19] LABS: Alanine Aminotransferase 23 U/L (0-40); Albumin Level 4.3 g/dL (3.5-5.0); Alkaline Phosphatase 54 U/L (39-117); Anion Gap 13 (12-20); Aspartate Amino Transferase 21 U/L (5-37); Bilirubin Total 0.4 mg/dL (0.0-1.0); Blood Urea Nitrogen 18 mg/dL (9-16); Calcium 9.5 mg/dL (8.4-10.2); Carbon Dioxide 22 mmol/L (22-29); Chloride 110 mmol/L (96-108); Cholesterol 166 mg/dL (<200); Estimated Glomerular Filt Rate > 60; Glucose Fasting 92 mg/dL (60-99); HDL Cholesterol 39 mg/dL (>40); LDL Cholesterol Calculated 106 mg/dL (<100); Potassium 4.6 mmol/L (3.3-5.1); Sodium 140 mmol/L (135-145); Total Protein 7.8 g/dL (6.5-8.0); Triglycerides 107 mg/dL (<150)
[2024-03-18 09:35] LABS: Vitamin D 25-OH Total 30.4 ng/mL (>30)
[2024-03-18 09:56] LABS: Microalbum/Creatinine Ratio Ur 185.9 ug/mg cr (<30)
== END 2024-03-18 08:17 | disposition home or self-care (01) ==
LOC: HO.LAB 08:16
PROVIDERS: PCP Internal Medicine; Visit Provider Internal Medicine
DX: E11.65 Type 2 diabetes mellitus with hyperglycemia (principal); E55.9 Vitamin D deficiency, unspecified; Z79.4 Long term (current) use of insulin; E78.5 Hyperlipidemia, unspecified
CPT/HCPCS: 36415; 80053; 80061; 82043; 82306; 82570

== ENCOUNTER 2024-03-26 12:38 | Outpatient (AMB) | payer OTHER, SELFPAY ==
--- NOTE | 2024-03-26 12:43 | A.OFFPC_ITS ---
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 Accompanied by: Self / Same As Patient Allergies doxycycline Allergy (Intermediate, Verified 03/26/24 13:01) Itching levofloxacin Allergy (Intermediate, Verified 03/26/24 13:01) Itching metformin Allergy (Intermediate, Verified 03/26/24 13:01) diarrhea morphine [MORPHINE] Allergy (Intermediate, Verified 03/26/24 13:01) ITCHING tetracycline Allergy (Intermediate, Verified 03/26/24 13:01) Itching cefazolin Adverse Reaction (Mild, Verified 03/26/24 13:01) Diarrhea, itchy Medication List - Last Reconciled 03/26/24 by Sheba Corbett MD acetaminophen (Tylenol) 650 mg (2 x 325 mg) PO Q4H PRN albuterol sulfate 2.5 mg (3 mL) inhalation Q6H PRN 30 days amlodipine 5 mg PO DAILY 90 days apremilast (Otezla) 30 mg PO BID aspirin 81 mg PO DAILY atorvastatin 20 mg PO BEDTIME 90 days blood sugar diagnostic (Mobuiuch Verio test strips) Use 3 times a day to test BG daily for 30 days cholecalciferol (vitamin D3) 25 mcg PO DAILY 90 days cholestyramine (with sugar) 4 gram 4 grams PO BID 30 days clotrimazole-betamethasone 1-0.05 % 1 appl topical BID cyclobenzaprine 10 mg PO TID PRN [diabetic shoes and inserts As directed] empagliflozin (Jardiance) 25 mg PO QAM fluticasone propion-salmeterol 500-50 mcg/dose (Wixela Inhub) 1 inh PO BID 90 days folic acid 1 mg PO DAILY gabapentin 600 mg (2 x 300 mg) PO DAILY 90 days insulin glargine (Lantus Solostar U-100 Insulin) 30 units (0.3 mL) subcut QPM 90 days ipratropium-albuterol 0.5 mg-3 mg(2.5 mg base)/3 mL 3 mL inhalation Q6H PRN 30 days ipratropium-albuterol 20-100 mcg/actuation (Combivent Respimat) 1 puff inhalation Q6H PRN 30 days lancets (NMT MedicalTouch Delica Lancets) Check by finger stick route 4 times every day linagliptin (Tradjenta) 5 mg PO DAILY nebulizers (AeroEclipse II Nebulizer) As directed omeprazole 20 mg PO BID [onetouch glucometer As directed] pen needle, diabetic (BD Ultra-Fine Short Pen Needle) As directed daily with Lantus pramipexole 0.125 mg PO BEDTIME 90 days tamsulosin 0.4 mg PO DAILY triamcinolone acetonide 0.1% 1 appl topical BID 1 week Ventolin HFA 90 mcg/actuation (albuterol sulfate) 2 puffs inhalation Q6H PRN 30 days NS zolpidem 5 mg PO BEDTIME PRN 30 days Tobacco use date assessed: 12/12/23 Fall risk assessment: No Falls in past year Last assessed Fall Risk: 03/26/24 Dental Screening Dental Screen Date: 12/12/23 HPI HPI Comments History of Present Illness Details This is a 73-year-old male with diabetes mellitus type 2 on long-term current use of insulin and psoriatic arthritis that comes for his physical exam. Last diabetic eye exam was 2022. Last colonoscopy was 2022 showing tubular adenomas and next colonoscopy should be 2027. A1c within goal. LDL not on goal and I will increase statin. Complains of left shoulder pain after having pneumonia vaccine in December. Has full active range of motion. Psoriatic arthritis stable with medications. [facility] Medical History (Updated 03/26/24 @ 13:16 by Sheba Corbett MD) Hypertensive retinopathy Nicotine dependence, cigarettes, uncomplicated Tubular adenoma of colon Restless leg syndrome Mild persistent asthma CKD stage 3 due to type 2 diabetes mellitus Diabetes mellitus, with long-term current use of insulin Pure hypercholesterolemia GERD (gastroesophageal reflux disease) Precordial chest pain Essential hypertension Non-rheumatic aortic stenosis Loss of hearing Anemia Asthma Surgical History History of esophagogastroduodenoscopy (EGD) History of colonoscopy History of cholecystectomy History of implantation of penile prosthesis Family History Father No problems noted. Mother No problems noted. Family/Other FH: mental illness Brother In good health Sister In good health Son In good health Daughter In good health Other Mental health disorder Social History Household Members: None Housing: Apartment Do you presently have visiting nurse or other home services: No Alcohol intake: current Alcohol intake frequency: holidays/special occasions only Alcohol type: hard liquor Patient Tobacco Use Status: Current everyday Tobacco user Tobacco use type: Cigarette Cigarettes Per Day: 10 e-Cigarette/Vaping Use: Never Used Second Hand Smoke Exposure: No service: No Current occupational status: disabled Cognitive needs: No Hearing needs: No Vision needs: Yes Questionnaire PHQ-9 Over the last 2 weeks, how often have you been bothered by any of the following problems? 1. Little interest or pleasure in doing things: not at all 2. Feeling down, depressed, or hopeless: not at all 3. Trouble falling or staying asleep, or sleeping too much: not at all 4. Feeling tired or having little energy: not at all 5. Poor appetite or overeating: not at all 6. Feeling bad about yourself - or that you are a failure or have let yourself or your family down: not at all 7. Trouble concentrating on things, such as reading the newspaper or watching television: not at all 8. Moving or speaking so slowly that other people could have noticed. Or the opposite - being so fidgety or restless that you have been moving around a lot more than usual: not at all 9. Thoughts that you would be better off or of hurting yourself in some way: not at all Total score: 0 Depression Screening Interpretation: Negative Depression Screening Done: Yes 89745 - PHQ-9 Billing: Yes Source: Developed by Drs. Wil Cummings, Nataly Summers, Benjy Grimes and colleagues, with an educational champ from [employer]. Thrive Questionnaire Date Thrive assessed: 12/12/23 AUDIT C Alcohol Use Questionnaire (AUDIT-C) 1. How often do you have a drink containing alcohol?: Monthly or less 2. How many drinks containing alcohol do you have on a typical day when you are drinking?: 1 or 2 3. How often do you have six or more drinks on one occasion?: Never Total Score: 1 Score Reviewed/Action Taken: Yes HENRIETTA-7 AMB Questionnaire HENRIETTA-7 Date HENRIETTA - 7 assessed: 03/26/24 Feeling nervous, anxious, or on edge: 0 = Not at all Not being able to stop or control worryin = Not at all Worrying too much about different things: 0 = Not at all Trouble relaxin = Not at all Being so restless that it is hard to sit still: 0 = Not at all Becoming easily annoyed or irritable: 0 = Not at all Feeling afraid as if something awful might happen: 0 = Not at all Total HENRIETTA-7 score (0-4 normal; 5-9 mild; 10-14 moderate; 15-21 severe): 0 Source: Developed by Drs. Wil Cummings, Nataly Summers, Benjy Grimes and colleagues, with an educational champ from [employer]. HENRIETTA-7 Assessment Billing HENRIETTA-7 Assessment Tool: HENRIETTA-7 Assessment 73095 Review of Systems Const All systems reviewed & are unremarkable except as noted in HPI and below Card Denies chest pain at rest, Denies chest pain with activity, Denies edema, Denies irregular heart rhythm, Denies claudication, Denies dyspnea, Denies dyspnea on exertion, Denies orthopnea, Denies paroxysmal nocturnal dyspnea and Denies slow heart rate Resp Denies cough, Denies dyspnea and Denies dyspnea on exertion GI Denies abdominal pain, Denies change in bowel habits, Denies excessive flatus, Denies nausea and Denies vomiting Denies urinary hesitancy, Denies urinary incontinence and Denies urinary urgency Musc Reports arthralgias Physical exam (Primary Care) Vital Signs: Last Vital Signs BP 132/64 03/26/24 12:44 BMI result Body Mass Index 27.6 Tobacco/Smoking Status: Tobacco use Status Tobacco use date assessed 12/12/23 03/26/24 12:53 Patient Tobacco Use Status Current everyday Tobacco 03/26/24 12:53 Tobacco use type Cigarette 03/26/24 12:53 e-Cigarette/Vaping Use Never Used 03/26/24 12:53 PHQ-9: PHQ-9 Score PHQ-9: Total score 0 03/26/24 13:09 Depression Screening Interpretation: Negative Thrive Assessment: Date of Thrive Assessment Date Thrive assessed 12/12/23 03/26/24 12:53 Const Orientation/consciousness: patient oriented x3 HENMT Head: Yes normal to inspection, Yes normocephalic and Yes atraumatic Ears: external ears normal Eyes General: appearance normal, both eyes and all related structures Eyelids: Yes eyelids normal Conjunctivae: conjunctivae normal Neck Neck: Yes normal visual inspection and Yes supple Resp Effort & Inspection: normal respiratory effort Auscultation: clear to auscultation bilaterally Cardio Jugular venous distension: no JVD Rate: regular rate Rhythm: regular rhythm Heart sounds: S1 normal heart sound present and S2 normal heart sound present GI Inspection: Yes normal to inspection Palpation (GI): Soft to palpation and nontender Auscultation: normal bowel sounds Skin General skin exam: no rashes or lesions noted Neuro General: patient oriented x3 and no focal motor deficits Extrem General: Yes full ROM Psych Appearance: grossly normal Results AMB Hemoglobin A1c AMB Hemoglobin A1c 6.8 % Last Edit by BENITA Moncada on 03/26/24 12:5 5 Results Reviewed Results Reviewed: Laboratory Last Values Hgb A1c (Clinic) 6.8 % (4.0-6.0) H 03/26/24 12:43 Assessment and Plan Assessment & Plan (1) Physical exam: Code(s): Z00.00 - Encounter for general adult medical examination without abnormal findings Plan: Repeat in a year. (2) Diabetes mellitus, with long-term current use of insulin: Code(s): E11.9 - Type 2 diabetes mellitus without complications; Z79.4 - senior living (current) use of insulin Qualifiers: Diabetes mellitus type: type 2 Diabetes mellitus complication status: with hyperglycemia Qualified Code(s): E11.65 - Type 2 diabetes mellitus with hyperglycemia; Z79.4 - senior living (current) use of insulin Plan: Continue insulin. Continue metformin and Tradjenta. Continue Jardiance. A1c goal is equal or less than 7%. Diabetic eye exam yearly. (3) Psoriatic arthritis: Code(s): L40.50 - Arthropathic psoriasis, unspecified Plan: Continue Otezla. Follow-up with dermatology. Orders: Orders AMB Hemoglobin A1c Today E11.65 - Type 2 diabetes mellitus with hyperglycemia, Z79.4 - senior living (current) use of insulin Comprehensive [place]. 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 Lipid Panel 4 Months E78.5 - Hyperlipidemia, unspecified Microalbumin, Random (w Creat) 4 Months E11.9 - Type 2 diabetes mellitus without complications Vitamin D 25-OH Total 4 Months E55.9 - Vitamin D deficiency, unspecified Medications: New atorvastatin 40 mg PO BEDTIME 90 tabs 3RF 90 days Refilled cholecalciferol (vitamin D3) 25 mcg PO DAILY 90 caps 1RF 90 days Discontinued atorvastatin Discontinued Reason: Patient Completed Course 20 mg PO BEDTIME 90 days 90 tabs 0RF Coding Level of Care Code Est Pt Level 3 (70222) Est Pt Prev Care >65y(97032) Diagnoses Physical exam Z00.00 Type 2 diabetes mellitus with hyperglycemia, with long-term current use of insulin E11.65; Z79.4 Diabetes mellitus type: type 2 Diabetes mellitus complication status: with hyperglycemia Psoriatic arthritis L40.50 Additional Codes HENRIETTA-7 Assessment Billing - HENRIETTA-7 Assessment Tool: HENRIETTA-7 Assessment [id number] ([id number]) Time Spent (min) 35
[2024-03-26 12:44] VITALS: BP 132/64; BMI 27.6
== END 2024-03-26 13:14 | disposition home or self-care (01) ==
PROVIDERS: PCP Internal Medicine; Visit Provider Internal Medicine
DX: Z00.00 Encounter for general adult medical examination without abnormal findings (principal); E11.65 Type 2 diabetes mellitus with hyperglycemia; Z79.4 Long term (current) use of insulin; L40.50 Arthropathic psoriasis, unspecified
CPT/HCPCS: 83036; 99213; 99397

== ENCOUNTER 2024-05-09 10:37 | Emergency (ER) | payer OTHER, SELFPAY ==
--- NOTE | ~2024-05-09 | CT_ITS ---
EXAMINATION: CT HEAD WITHOUT CONTRAST CLINICAL INFORMATION: Left blurry vision COMPARISON: CT head 11/17/2022 TECHNIQUE: Contiguous axial imaging was performed from the skull base to vertex without intravenous administration of contrast. This CT examination was performed using dose optimization techniques as appropriate, variously including the following: *Automated exposure control *Adjustment of mA and/or kV according to patient size (this includes techniques or standardized protocols for targeted exams where dose is matched to indication/reason for exam; i.e. extremities or head) *Use of iterative reconstruction technique DLP: 1220 mGy-cm FINDINGS: There is no evidence of acute intracranial hemorrhage or edematous territorial infarction. Perez-white matter differentiation appears preserved. The ventricles and cortical sulci are proportional with mild volume loss. Patchy hypodensities within the periventricular and deep white matter representing moderate chronic microangiopathic changes. There is no mass effect or midline shift. No acute extra-axial collection. No acute osseous abnormality. Moderate mucosal thickening involving the maxillary sinuses with aerosolized secretions within the left maxillary sinus. Patchy mucosal thickening within the ethmoid air cells. The remaining paranasal sinuses and left mastoid air cells are clear. Small right mastoid effusion. CT/CT head/brain wo IV con IMPRESSION: 1. No acute intracranial pathology. Moderate chronic microangiopathy changes. 2. Paranasal sinus disease as detailed.
--- NOTE | ~2024-05-09 | CT_ITS ---
EXAMINATION: CT SOFT TISSUE NECK WITH CONTRAST CLINICAL INFORMATION: Left submandibular region swelling COMPARISON: CT neck 12/11/2006 and MRI 12/18/2006 TECHNIQUE: Following the administration of 60 mL of Omnipaque 350 intravenous contrast, helical imaging was performed in the axial plane with generation of coronal and sagittal reformatted images. This CT examination was performed using dose optimization techniques as appropriate, variously including the following: *Automated exposure control. *Adjustment of mA and/or kV according to patient size (this includes techniques or standardized protocols for targeted exams where dose is matched to indication/reason for exam; i.e. extremities or head). *Use of iterative reconstruction technique. DLP: 516 mGy-cm. FINDINGS: There is new asymmetric thickening of the left perimandibular gingivobuccal soft tissues with reticulation of the overlying subcutaneous fat, skin thickening, thickening of the left platysma muscle, and mild stranding in the left submandibular space. No finding suggestive of acute left submandibular sialoadenitis. Findings are most compatible with cellulitis. Of note, there are post root canal changes of a left anterior mandibular molar with prominent periapical lucency associated with the distal palatal root, which may reflect a periapical abscess in the setting of failed root canal and could potentially serve as an odontogenic source for left facial cellulitis. No discrete drainable fluid collection to suggest abscess. Reactive left level 1B lymphadenopathy. The fat planes of the skull base and soft tissues of the nasopharynx are unremarkable. Redemonstrated bilateral proptosis. Moderate mucosal disease of the bilateral maxillary sinuses with AP dependent aerosolized secretions on the left, mild to moderate mucosal ethmoid air cell, and mild frontal sinus mucosal disease. Trace bilateral mastoid effusions. The temporomandibular joints are normal. The oral cavity and pharyngeal mucosal space is normal. There is linear soft tissue traversing the right pyriform sinus and in the sagittal plane which may reflect scarring. The laryngeal structures are opposed limiting assessment of the glottis. The subglottic airway is patent. The parotid glands are normal. Mild nonspecific sialectasis of the bilateral submandibular glands. Extensive dental streak artifact limits assessment of the floor of mouth however no definite obstructing floor of mouth lesion or calculus is seen. The thyroid gland is normal. The partially visualized lung apices are clear. Mild atherosclerosis of the carotid bifurcations contributes to mild (less than 50% stenosis of the left ICA origin. The left internal jugular vein is severely effaced between the left C1 transverse process and left styloid process, which may be asymptomatic however can be correlated clinically for the possibility of styloidogenic jugular vein compression syndrome. Mild cervical spondylosis. The imaged portions of the brain parenchyma are unremarkable. Mild calcific plaque along the bilateral carotid siphons. CT/CT soft tissue neck w IV con IMPRESSION: Left facial cellulitis as discussed above, centered in the left perimandibular region. Post root canal changes of a left anterior mandibular molar with prominent periapical lucency associated with the distal palatal root, which may reflect a periapical abscess in the setting of failed root canal and could potentially serve as an odontogenic source for left facial cellulitis. No discrete drainable fluid collection to suggest abscess. Reactive left level 1B lymphadenopathy.
[2024-05-09 10:41] VITALS: BP 157/80; PULSE 96; RESP 16; TEMP 36.6; O2SAT 96; BMI 26.7
[2024-05-09 12:01] VITALS: BP 161/76; PULSE 84; RESP 16; TEMP 36.6; O2SAT 98
--- NOTE | 2024-05-09 12:59 | ED_ITS ---
HPI - General Adult General Chief complaint: Headache Stated complaint: pain on l side up to head Time Seen by Provider: 05/09/24 12:07 History of Present Illness ED Provider: Dr. Ruggiero HPI narrative: 73 y/o M patient; PMH T2DM, GERD, HLD, HTN, aortic stenosis; presents from home reporting pain to the left side of the head for the last five days. Associated with blurry vision in the left eye. The patient is concerned about a dental infection. He saw a dentist yesterday (05/08/2024) who prescribed him PCN which he has been taking. He notes one day of subjective fever. He otherwise denies: nausea/vomiting, abdominal pain, chest pain, SOB, cough/congestion, changes in hearing, lightheadedness/dizziness. He denies any recent falls or trauma. He denies blood thinner use. He denies: numbness/weakness/tingling of his arms or legs, syncope, word finding difficulty, slurred speech. Related Data Home Medications ?Medication ?Instructions ?Recorded ?Confirmed apremilast 30 mg tablet (Otezla) 30 mg PO BID 10/26/21 03/26/24 Previous Rx's ?Medication ?Instructions ?Recorded onetouch glucometer #1 ea 10/09/20 lancets 33 gauge (OneTouch Delica #100 ea 12/15/20 Lancets) triamcinolone acetonide 0.1 % 1 appl topical BID 1 week #30 grams 12/21/21 topical ointment nebulizers (AeroEclipse II #1 ea 01/10/22 Nebulizer) clotrimazole-betamethasone 1 1 appl topical BID #15 grams 02/09/22 %-0.05 % topical cream acetaminophen 325 mg capsule 650 mg (2 x 325 mg) PO Q4H PRN 02/20/22 (Tylenol) pain #30 caps cyclobenzaprine 10 mg tablet 10 mg PO TID PRN muscle spasm #10 02/20/22 tabs diabetic shoes and inserts #1 ea 03/10/22 Ventolin HFA 90 mcg/actuation 2 puff inhalation Q6H PRN 04/12/23 aerosol inhaler (albuterol sulfate) shortness of breath or wheezing 30 days #18 grams albuterol sulfate 2.5 mg/3 mL 2.5 mg (3 mL) inhalation Q6H PRN 04/27/23 (0.083 %) solution for nebulization bronchospasm 30 days #360 mL insulin glargine 100 unit/mL (3 30 unit (0.3 mL) subcut QPM 90 08/03/23 mL) subcutaneous pen (Lant days #27 mL Solostar U-100 Insulin) gabapentin 300 mg capsule 600 mg (2 x 300 mg) PO DAILY 90 10/25/23 days #180 caps aspirin 81 mg tablet,delayed 81 mg PO DAILY #90 tabs 11/29/23 release empagliflozin 25 mg tablet 25 mg PO QAM #30 tabs 01/04/24 (Jardiance) pramipexole 0.125 mg tablet 0.125 mg PO BEDTIME 90 days #90 01/04/24 tabs ipratropium 20 mcg-albuterol 100 1 puff inhalation Q6H PRN wheezing 01/11/24 mcg/actuation mist for inhalation 30 days #4 grams (Combivent Respimat) omeprazole 20 mg capsule,delayed 20 mg PO BID #180 caps 01/11/24 release folic acid 1 mg tablet 1 mg PO DAILY #90 tabs 01/12/24 linagliptin 5 mg tablet (Tradjenta) 5 mg PO DAILY #30 tabs 02/11/24 fluticasone 500 mcg-salmeterol 50 1 inh PO BID 90 days #180 ea 02/24/24 mcg/dose blistr powdr for inhalation (Wixela Inhub) pen needle, diabetic 31 gauge x #1,200 ea 03/07/24 5/16 (BD Ultra-Fine Short Pen Needle) zolpidem 5 mg tablet 5 mg PO BEDTIME PRN insomnia 30 03/16/24 days #30 tabs atorvastatin 40 mg tablet 40 mg PO BEDTIME 90 days #90 tabs 03/26/24 cholecalciferol (vitamin D3) 25 25 mcg PO DAILY 90 days #90 caps 03/26/24 mcg (1,000 unit) capsule ipratropium 0.5 mg-albuterol 3 mg 3 ml inhalation Q6H PRN for 03/30/24 (2.5 mg base)/3 mL nebulization wheezing 30 days #90 mL soln amlodipine 5 mg tablet 5 mg PO DAILY 90 days #90 tabs 04/15/24 cholestyramine (with sugar) 4 gram 4 g PO BID 30 days #378 grams 04/15/24 oral powder tamsulosin 0.4 mg capsule 0.4 mg PO DAILY #90 caps 04/15/24 sodium polystyrene sulfonate 15 g PO BID 30 days #453.6 grams 04/29/24 blood sugar diagnostic (TGV SoftwareTouch #100 ea 04/30/24 Verio test strips) clindamycin HCl 150 mg capsule 450 mg (3 x 150 mg) PO TID 7 days 05/09/24 #63 caps Allergies Allergy/AdvReac Type Severity Reaction Status Date / Time doxycycline Allergy Intermediate Itching Verified 05/09/24 10:46 levofloxacin Allergy Intermediate Itching Verified 05/09/24 10:46 metformin Allergy Intermediate diarrhea Verified 05/09/24 10:46 morphine [MORPHINE] Allergy Intermediate ITCHING Verified 05/09/24 10:46 tetracycline Allergy Intermediate Itching Verified 05/09/24 10:46 cefazolin AdvReac Mild Diarrhea, Verified 05/09/24 10:46 itchy Review of Systems 2 Review of Systems: Yes all other systems are reviewed and are negative Neurologic: Denies Abnormal speech present and Denies Sensory deficit (Neuro) [facility] Past Medical History Attestation statement: The following information was validated with the patient. Source: old records reviewed Medical History Hypertensive retinopathy Nicotine dependence, cigarettes, uncomplicated Tubular adenoma of colon Restless leg syndrome Mild persistent asthma CKD stage 3 due to type 2 diabetes mellitus Diabetes mellitus, with long-term current use of insulin Pure hypercholesterolemia GERD (gastroesophageal reflux disease) Precordial chest pain Essential hypertension Non-rheumatic aortic stenosis Loss of hearing Anemia Asthma Surgical History History of esophagogastroduodenoscopy (EGD) History of colonoscopy History of cholecystectomy History of implantation of penile prosthesis Family History Family History Father No problems noted. Mother No problems noted. Family/Other FH: mental illness Brother In good health Sister In good health Son In good health Daughter In good health Other Mental health disorder Social History Social History Household Members: None Housing: Apartment Do you presently have visiting nurse or other home services: No Alcohol intake: current Alcohol intake frequency: holidays/special occasions only Alcohol type: hard liquor Patient Tobacco Use Status: Current everyday Tobacco user Tobacco use type: Cigarette Cigarettes Per Day: 10 Smoked in Last 30 Days: No e-Cigarette/Vaping Use: Never Used Second Hand Smoke Exposure: No Use of substances other than those prescribed or required for medical reasons: No Advance Directives: No Advance Directives Information Provided: No Do you have a plan to hurt others: No Plan service: No Current occupational status: disabled Cognitive needs: No Hearing needs: No Vision needs: Yes Physical Exam ED Vital Signs: Vital Signs - 24 hr 05/09/24 10:41 05/09/24 12:01 05/09/24 16:00 Temperature 97.8 F 98 F 97.4 F Pulse Rate 96 84 85 Respiratory Rate 16 16 18 Blood Pressure 157/80 H 161/76 H 186/93 H Pulse Oximetry 96 98 98 Oxygen Delivery Method Room Air Room Air Room Air 05/09/24 18:46 Temperature 97.9 F Pulse Rate 85 Respiratory Rate 18 Blood Pressure 161/77 H Pulse Oximetry 99 Oxygen Delivery Method Room Air BMI result Body Mass Index 26.7 Patient is afebrile, mildly hypertensive. Const General: cooperative Orientation/consciousness: patient oriented x3 HENMT Other: Left sided sub-mandibular swelling and tenderness without overlying skin changes. Tenderness to pre-auricular and post-auricular region. No overlying erythema. Erythema to buccal aspect of left-sided inner cheek. No obvious fluctuance/induration. Head: Yes normal to inspection and Yes atraumatic Ears: hearing grossly normal bilaterally Eyes General: appearance normal, both eyes and all related structures Eyelids: Yes eyelids normal Conjunctivae: conjunctivae normal Sclerae: sclerae normal Corneas: corneas normal Pupils: Equal, round and reactive pupils present EOM: EOMs intact bilaterally and No Nystagmus present Neck Neck: Yes normal visual inspection and Yes full ROM Chest Chest palpation & inspection: normal inspection of the chest and normal palpation of entire chest wall Resp Effort & Inspection: normal respiratory effort, able to speak in complete sentences, no cough and no respiratory distress Auscultation: clear to auscultation bilaterally Cardio Rate: regular rate Rhythm: regular rhythm Peripheral pulses: Peripheral pulses 2+ throughout GI Inspection: Yes normal to inspection, No Abdominal wall edema and No distended Palpation (GI): Soft to palpation, not firm, nontender, no guarding and not rigid Auscultation: normal bowel sounds Back/Spine/Pelvis Back: No back tenderness Neuro Other: Visual boyle intact General: patient oriented x3 and gait normal Cranial nerves: Yes Equal, round and reactive pupils present, Yes Bilaterally intact EOM present, Yes Nystagmus not present and No Nystagmus present Cognition (Neuro): normal cognition Speech: No Abnormal speech present Motor exam (neuro): 5/5 motor strength present throughout and Pronator motor function not present Sensory Exam: No Sensory deficit (Neuro) Course Course Course Narrative: Patient is afebrile and hemodynamically stable. Will obtain basic labs, inflammatory markers. Discussed with radiology regarding recommended imaging. Recommend CT head and CT w contrast soft tissue neck. Ocular exam: EOMI Intact visual acuity 20/20 in both eyes Normal pupillary exam - pupils bilaterally reactive to light, accommodating Visual boyle intact, confrontation intact CT scan notable for left facial cellulitis centered around the left perimandibular region. Possible periapical abscess of the left anterior mandibular molar. Labs notable for mild leukocytosis 12.3. ESR 20. CRP 0.44. Remainder of labs unremarkable. Discussed findings with patient. Will change from Amoxicillin to Clindamycin to cover for associated cellulitis. Patient will follow up closely with dentist and PCP. Plan: Discharge to home with dental and PCP follow up Return precautions given Medications Administered Discontinued Medications Generic Name Dose Route Start Last Admin Trade Name Freq PRN Reason Stop Dose Admin Clindamycin HCl 450 mg 05/09/24 20:00 05/09/24 20:05 Clindamycin Hcl 150 Mg Capsule PO 05/09/24 20:01 450 mg ONCE ONE Administration Iohexol 100 ml 05/09/24 16:36 05/09/24 16:36 Iohexol 350 Mg/Ml 100 Ml Infus..Btl IV 05/09/24 16:37 60 ml ONCE ONE Administration Medical Decision Making Lab Data 05/09/24 14:35 05/09/24 14:35 Labs: Lab Results 05/09/24 05/09/24 Range/Units 14:35 14:36 WBC 12.3 H (4.8-10.8) X10*3/uL RBC 4.92 (4.60-5.80) X10*6/uL Hgb 14.8 (14.0-18.0) g/dl Hct 44.8 (42.0-52.0) % MCV 91.1 (80.0-98.0) fL MCH 30.1 (27.0-33.0) pg MCHC 33.0 (31.0-36.0) g/dl RDW 13.0 (11.0-16.0) % Plt Count 214 (160-400) X10*3/uL MPV 9.8 (9.4-12.4) fL Immature Gran % (Auto) 0.4 (0.0-0.4) % Neut % (Auto) 69.2 (45-73) % Lymph % (Auto) 14.2 L (20-40) % [place] % (Auto) 8.1 (2-11) % Eos % (Auto) 7.8 H (0-4) % Baso % (Auto) 0.3 (0-2) % Lymph # (Auto) 1.7 (1.2-4.9) X10*3/uL [place] # (Auto) 1.0 (0.1-1.2) X10*3/uL Eos # (Auto) 1.0 H (0.0-0.4) X10*3/uL Baso # (Auto) 0.0 (0.0-0.2) X10*3/uL Abs Immat Gran (auto) 0.05 H (0.00-0.03) X10*3/uL Absolute Neuts (auto) 8.5 H (2.0-8.3) x10*3/uL Absolute Nucleated RBC 0.000 (0.0-0.012) X10*3/uL Nucleated RBC % (auto) 0.0 (0.0-0.2) /100WBC ESR 20 H (0-15) MM/HR Sodium 138 (135-145) mmol/L Potassium 4.0 (3.3-5.1) mmol/L Chloride 105 (96-108) mmol/L Carbon Dioxide 25 (22-29) mmol/L Anion Gap 12 (12-20) BUN 14 (9-16) mg/dL Creatinine 1.21 (0.5-1.4) mg/dL Estim Creat Clear Calc 51.5 Estimated GFR 59 POC Glucose 125 H (60-115) mg/dL Random Glucose 132 H (60-115) mg/dL Calcium 10.2 D (8.4-10.2) mg/dL Total Bilirubin 0.4 (0.0-1.0) mg/dL Direct Bilirubin 0.2 (0.0-0.5) mg/dL AST 21 (5-37) U/L ALT 28 (0-40) U/L Alkaline Phosphatase 68 (39-117) U/L C-Reactive Protein 0.44 (< or = 0.50) mg/dL Total Protein 8.0 (6.5-8.0) g/dL Albumin 4.4 (3.5-5.0) g/dL Lipase 26 (8-78) U/L Radiology Impression Discussion of test interpretation with radiology: I have reviewed the radiologist's reading. Radiologist Impression: EXAMINATION: CT HEAD WITHOUT CONTRAST CLINICAL INFORMATION: Left blurry vision COMPARISON: CT head 11/17/2022 TECHNIQUE: Contiguous axial imaging was performed from the skull base to vertex without intravenous administration of contrast. This CT examination was performed using dose optimization techniques as appropriate, variously including the following: *Automated exposure control *Adjustment of mA and/or kV according to patient size (this includes techniques or standardized protocols for targeted exams where dose is matched to indication/reason for exam; i.e. extremities or head) *Use of iterative reconstruction technique DLP: 1220 mGy-cm FINDINGS: There is no evidence of acute intracranial hemorrhage or edematous territorial infarction. Perez-white matter differentiation appears preserved. The ventricles and cortical sulci are proportional with mild volume loss. Patchy hypodensities within the periventricular and deep white matter representing moderate chronic microangiopathic changes. There is no mass effect or midline shift. No acute extra-axial collection. No acute osseous abnormality. Moderate mucosal thickening involving the maxillary sinuses with aerosolized secretions within the left maxillary sinus. Patchy mucosal thickening within the ethmoid air cells. The remaining paranasal sinuses and left mastoid air cells are clear. Small right mastoid effusion. CT/CT head/brain wo IV con IMPRESSION: 1. No acute intracranial pathology. Moderate chronic microangiopathy changes. 2. Paranasal sinus disease as detailed. EXAMINATION: CT SOFT TISSUE NECK WITH CONTRAST CLINICAL INFORMATION: Left submandibular region swelling COMPARISON: CT neck 12/11/2006 and MRI 12/18/2006 TECHNIQUE: Following the administration of 60 mL of Omnipaque 350 intravenous contrast, helical imaging was performed in the axial plane with generation of coronal and sagittal reformatted images. This CT examination was performed using dose optimization techniques as appropriate, variously including the following: *Automated exposure control. *Adjustment of mA and/or kV according to patient size (this includes techniques or standardized protocols for targeted exams where dose is matched to indication/reason for exam; i.e. extremities or head). *Use of iterative reconstruction technique. DLP: 516 mGy-cm. FINDINGS: There is new asymmetric thickening of the left perimandibular gingivobuccal soft tissues with reticulation of the overlying subcutaneous fat, skin thickening, thickening of the left platysma muscle, and mild stranding in the left submandibular space. No finding suggestive of acute left submandibular sialoadenitis. Findings are most compatible with cellulitis. Of note, there are post root canal changes of a left anterior mandibular molar with prominent periapical lucency associated with the distal palatal root, which may reflect a periapical abscess in the setting of failed root canal and could potentially serve as an odontogenic source for left facial cellulitis. No discrete drainable fluid collection to suggest abscess. Reactive left level 1B lymphadenopathy. The fat planes of the skull base and soft tissues of the nasopharynx are unremarkable. Redemonstrated bilateral proptosis. Moderate mucosal disease of the bilateral maxillary sinuses with AP dependent aerosolized secretions on the left, mild to moderate mucosal ethmoid air cell, and mild frontal sinus mucosal disease. Trace bilateral mastoid effusions. The temporomandibular joints are normal. The oral cavity and pharyngeal mucosal space is normal. There is linear soft tissue traversing the right pyriform sinus and in the sagittal plane which may reflect scarring. The laryngeal structures are opposed limiting assessment of the glottis. The subglottic airway is patent. The parotid glands are normal. Mild nonspecific sialectasis of the bilateral submandibular glands. Extensive dental streak artifact limits assessment of the floor of mouth however no definite obstructing floor of mouth lesion or calculus is seen. The thyroid gland is normal. The partially visualized lung apices are clear. Mild atherosclerosis of the carotid bifurcations contributes to mild (less than 50% stenosis of the left ICA origin. The left internal jugular vein is severely effaced between the left C1 transverse process and left styloid process, which may be asymptomatic however can be correlated clinically for the possibility of styloidogenic jugular vein compression syndrome. Mild cervical spondylosis. The imaged portions of the brain parenchyma are unremarkable. Mild calcific plaque along the bilateral carotid siphons. CT/CT soft tissue neck w IV con IMPRESSION: Left facial cellulitis as discussed above, centered in the left perimandibular region. Post root canal changes of a left anterior mandibular molar with prominent periapical lucency associated with the distal palatal root, which may reflect a periapical abscess in the setting of failed root canal and could potentially serve as an odontogenic source for left facial cellulitis. No discrete drainable fluid collection to suggest abscess. Reactive left level 1B lymphadenopathy. Discharge Plan Discharge Clinical Impression: Cellulitis of face, Abscess, dental Patient Disposition: Home, Self-Care Instructions: Cellulitis (DC) Additional Instructions: As we discussed, you were seen today for a dental infection with facial pain/swelling. Your CT scan showed an infection called cellulitis in the skin of your face due to an infection in the back of your left upper tooth. Your antibiotic is being changed to Clindamycin. Stop taking the Amoxicillin. Follow up with your dentist and PCP within the next 24 - 48 hours for a re- evaluation. Return to the emergency department for: Worsening pain or swelling Changes in your vision Numbness/weakness/tingling of your arms or legs Facial droop Changes in your hearing Prescriptions: New clindamycin HCl 150 mg capsule 450 mg PO TID 7 Days Qty: 63 0RF No Action (DME) onetouch glucometer See Rx Instructions .Route .MEDSUPPLY Qty: 1 0RF Rx Instructions: As directed (DME) lancets [OneTouch Delica Lancets] 33 gauge misc See Rx Instructions .ROUTE .MEDSUPPLY Qty: 100 11RF Rx Instructions: Check by finger stick route 4 times every day (DME) AeroEclipse II Nebulizer Misc See Rx Instructions .Route Qty: 1 0RF Rx Instructions: As directed albuterol sulfate [Ventolin HFA] 90 mcg/actuation HFA aerosol inhaler 2 puff inhalation Q6H PRN (Reason: shortness of breath or wheezing) 30 Days Qty: 18 2RF albuterol sulfate 2.5 mg /3 mL (0.083 %) solution for nebulization 2.5 mg inhalation Q6H PRN (Reason: bronchospasm) 30 Days Qty: 360 0RF gabapentin 300 mg capsule 600 mg PO DAILY 90 Days Qty: 180 3RF aspirin 81 mg tablet,delayed release (DR/EC) 81 mg PO DAILY Qty: 90 3RF pramipexole 0.125 mg tablet 0.125 mg PO BEDTIME 90 Days Qty: 90 1RF Jardiance 25 mg tablet 25 mg PO QAM Qty: 30 6RF Combivent Respimat 20-100 mcg/actuation mist 1 puff inhalation Q6H PRN (Reason: wheezing) 30 Days Qty: 4 4RF omeprazole 20 mg capsule,delayed release(DR/EC) 20 mg PO BID Qty: 180 2RF folic acid 1 mg tablet 1 mg PO DAILY Qty: 90 1RF Tradjenta 5 mg tablet 5 mg PO DAILY Qty: 30 6RF fluticasone propion-salmeterol [Wixela Inhub] 500-50 mcg/dose blister with device 1 inh PO BID 90 Days Qty: 180 3RF (DME) pen needle, diabetic [BD Ultra-Fine Short Pen Needle] 31 gauge x 5/16 needle See Rx Instructions .ROUTE .MEDSUPPLY Qty: 1200 11RF Rx Instructions: As directed daily with Lantus zolpidem 5 mg tablet 5 mg PO BEDTIME PRN (Reason: insomnia) 30 Days Qty: 30 0RF ipratropium-albuterol 0.5 mg-3 mg(2.5 mg base)/3 mL solution for nebulization 3 ml inhalation Q6H PRN (Reason: for wheezing) 30 Days Qty: 90 3RF cholestyramine (with sugar) 4 gram powder 4 g PO BID 30 Days Qty: 378 0RF Rx Instructions: administer w/meal; avoid other meds within 1hr before or 4-6hr after dose amlodipine 5 mg tablet 5 mg PO DAILY 90 Days Qty: 90 1RF tamsulosin 0.4 mg capsule 0.4 mg PO DAILY Qty: 90 1RF sodium polystyrene sulfonate Powder 15 g PO BID 30 Days Qty: 453.6 0RF (DME) [employer] Verio test strips Strip See Rx Instructions .ROUTE .MEDSUPPLY Qty: 100 11RF Rx Instructions: Use 3 times a day to test BG daily for 30 days triamcinolone acetonide 0.1 % ointment 1 appl topical BID 7 Days Qty: 30 0RF cyclobenzaprine 10 mg tablet 10 mg PO TID PRN (Reason: muscle spasm) Qty: 10 0RF acetaminophen [Tylenol] 325 mg capsule 650 mg PO Q4H PRN (Reason: pain) Qty: 30 0RF Otezla 30 mg tablet 30 mg PO BID (DME) diabetic shoes and inserts 9 See Rx Instructions .Route .MEDSUPPLY Qty: 1 0RF Rx Instructions: As directed clotrimazole-betamethasone 1-0.05 % cream 1 appl topical BID Qty: 15 0RF insulin glargine [Lantus Solostar U-100 Insulin] 100 unit/mL (3 mL) insulin pen 30 unit subcut QPM 90 Days Qty: 27 3RF Patient Comments: pt took 15 units yesterday atorvastatin 40 mg tablet 40 mg PO BEDTIME 90 Days Qty: 90 3RF cholecalciferol (vitamin D3) 25 mcg (1,000 unit) capsule 25 mcg PO DAILY 90 Days Qty: 90 1RF Referrals: Sheba Greco MD [Primary Care Provider] - 2 days Print Language: Azeri
--- NOTE | 2024-05-09 14:37 | PC.NURSE ---
POC = 125
[2024-05-09 14:39] LABS: MANUAL DIFF FLAG NO
[2024-05-09 14:39] LABS: Glucose, Whole Blood 125 mg/dL (60-115)
[2024-05-09 14:45] LABS: Basophils Percent Auto 0.3 % (0-2); Eosinophils Percent Auto 7.8 % (0-4); Hematocrit 44.8 % (42.0-52.0); Hemoglobin 14.8 g/dl (14.0-18.0); Imm Gran Abs Auto 0.05 X10*3/uL (0.00-0.03); Imm Gran Pct Auto 0.4 % (0.0-0.4); Lymphocytes Absolute Auto 1.7 X10*3/uL (1.2-4.9); Lymphocytes Percent Auto 14.2 % (20-40); Mean Corpuscular Hemoglobin 30.1 pg (27.0-33.0); Mean Corpuscular Volume 91.1 fL (80.0-98.0); Mean Platelet Volume 9.8 fL (9.4-12.4); Monocytes Percent Auto 8.1 % (2-11); Neutrophils Absolute Auto 8.5 x10*3/uL (2.0-8.3); Neutrophils Percent Auto 69.2 % (45-73); Platelet Count 214 X10*3/uL (160-400); Red Blood Count 4.92 X10*6/uL (4.60-5.80); White Blood Count 12.3 X10*3/uL (4.8-10.8)
[2024-05-09 15:01] LABS: Alanine Aminotransferase 28 U/L (0-40); Albumin Level 4.4 g/dL (3.5-5.0); Alkaline Phosphatase 68 U/L (39-117); Anion Gap 12 (12-20); Aspartate Amino Transferase 21 U/L (5-37); Bilirubin Direct 0.2 mg/dL (0.0-0.5); Bilirubin Total 0.4 mg/dL (0.0-1.0); Blood Urea Nitrogen 14 mg/dL (9-16); C Reactive Protein 0.44 mg/dL (< or = 0.50); Calcium 10.2 mg/dL (8.4-10.2); Carbon Dioxide 25 mmol/L (22-29); Chloride 105 mmol/L (96-108); Creatinine Clr Calc Pharmacy 51.5; Estimated Glomerular Filt Rate 59; Glucose Random 132 mg/dL (60-115); Lipase 26 U/L (8-78); Sodium 138 mmol/L (135-145)
[2024-05-09 15:29] LABS: Erythrocyte Sedimentation Rate 20 MM/HR (0-15)
[2024-05-09 16:00] VITALS: BP 186/93; PULSE 85; RESP 18; TEMP 36.3; O2SAT 98
[2024-05-09] MEDS: iohexoL 350 MG/ML 100 ML INFUS..BTL IV (16:36)
[2024-05-09 18:46] VITALS: BP 161/77; PULSE 85; RESP 18; TEMP 36.6; O2SAT 99
[2024-05-09] MEDS: Clindamycin HCL 150 MG CAPSULE 450 MG PO (20:05)
[2024-05-09 20:32] VITALS: BP 161/77; PULSE 85; RESP 18; TEMP 36.6; O2SAT 99
== END 2024-05-09 20:34 | disposition home or self-care (01) ==
PROVIDERS: Emergency Provider Emergency Medicine; PCP Internal Medicine
DX: L03.211 Cellulitis of face (principal); K04.7 Periapical abscess without sinus; E11.22 Type 2 diabetes mellitus with diabetic chronic kidney disease; I12.9 Hypertensive chronic kidney disease with stage 1 through stage 4 chronic kidney disease, or unspecified chronic kidney disease; N18.30 Chronic kidney disease, stage 3 unspecified; E78.00 Pure hypercholesterolemia, unspecified; J45.909 Unspecified asthma, uncomplicated; F17.210 Nicotine dependence, cigarettes, uncomplicated; Z79.4 Long term (current) use of insulin; Z79.82 Long term (current) use of aspirin; Z79.899 Other long term (current) drug therapy; Z79.02 Long term (current) use of antithrombotics/antiplatelets
CPT/HCPCS: 36415; 70450; 70491; 80048; 80076; 82947; 83690; 85025; 85652; 86140; 99284; Q9967

== ENCOUNTER 2024-06-21 09:34 | Emergency (ER) | payer OTHER, SELFPAY ==
[2024-06-21 09:46] VITALS: BP 140/70; PULSE 104; O2SAT 96
[2024-06-21 09:47] VITALS: BP 132/60; PULSE 97; RESP 16; TEMP 37; O2SAT 95; BMI 28.2
[2024-06-21 10:00] VITALS: BP 110/68; PULSE 93; RESP 22; TEMP 36.8; O2SAT 98
--- NOTE | 2024-06-21 10:31 | ED.GENADULT ---
HPI - General Adult General Chief complaint: Skin/Abscess/Foreign Body Stated complaint: Rash all over body, Hx of Eczema Time Seen by Provider: 06/21/24 10:31 Source: patient, EMS and counter maker (all interactions with this patient [place] [facility] [place] Mode of arrival: EMS Limitations: language barrier (all interactions with this patient were facilitated [place] [facility] [place] History of Present Illness ED Provider: Sylvia Steward PA-C HPI narrative: Patient is a 73 year old assigned male at with a history of psoriasis presenting to the emergency department today with bilateral hand, foot, and buttock rash. Patient states that over the last 3 days he has had a rash to his bilateral feet, hands, and upper buttock. Patient states that he had something similar before and was told that it was psoriasis. Patient states that he followed up with a payloader machine operator who agreed with that diagnosis and recommended seeing him in 1 year, which is coming up in September. Patient denies any dizziness, lightheadedness, abdominal pain, nausea, vomiting, fever, chills, blurry vision, double vision, loss of vision, chest pain, difficulty breathing, shortness of breath, back pain, night sweats, pain with urination, increased urinary frequency, increased urinary urgency, blood in his urine or stool, syncope or a near syncopal episode, recent trauma or falls, bowel incontinence, bladder incontinence, or any other complaints at this time. Onset (ago): day(s) (2) Location: buttocks, left, right, upper extremity and lower extremity Relieving factors: none Exacerbating factors: none Associated symptoms: rash Treatments prior to arrival: none Related Data Home Medications ?Medication ?Instructions ?Recorded ?Confirmed apremilast 30 mg tablet (Otezla) 30 mg PO BID 10/26/21 03/26/24 Previous Rx's ?Medication ?Instructions ?Recorded onetouch glucometer #1 ea 10/09/20 lancets 33 gauge (OneTouch Delica #100 ea 12/15/20 Lancets) triamcinolone acetonide 0.1 % 1 appl topical BID 1 week #30 grams 12/21/21 topical ointment nebulizers (AeroEclipse II #1 ea 01/10/22 Nebulizer) clotrimazole-betamethasone 1 1 appl topical BID #15 grams 02/09/22 %-0.05 % topical cream acetaminophen 325 mg capsule 650 mg (2 x 325 mg) PO Q4H PRN 02/20/22 (Tylenol) pain #30 caps cyclobenzaprine 10 mg tablet 10 mg PO TID PRN muscle spasm #10 02/20/22 tabs diabetic shoes and inserts #1 ea 03/10/22 Ventolin HFA 90 mcg/actuation 2 puff inhalation Q6H PRN 04/12/23 aerosol inhaler (albuterol sulfate) shortness of breath or wheezing 30 days #18 grams albuterol sulfate 2.5 mg/3 mL 2.5 mg (3 mL) inhalation Q6H PRN 04/27/23 (0.083 %) solution for nebulization bronchospasm 30 days #360 mL insulin glargine 100 unit/mL (3 30 unit (0.3 mL) subcut QPM 90 08/03/23 mL) subcutaneous pen (Lan days #27 mL Solostar U-100 Insulin) gabapentin 300 mg capsule 600 mg (2 x 300 mg) PO DAILY 90 10/25/23 days #180 caps aspirin 81 mg tablet,delayed 81 mg PO DAILY #90 tabs 11/29/23 release empagliflozin 25 mg tablet 25 mg PO QAM #30 tabs 01/04/24 (Jardiance) ipratropium 20 mcg-albuterol 100 1 puff inhalation Q6H PRN wheezing 01/11/24 mcg/actuation mist for inhalation 30 days #4 grams (Combivent Respimat) omeprazole 20 mg capsule,delayed 20 mg PO BID #180 caps 01/11/24 release folic acid 1 mg tablet 1 mg PO DAILY #90 tabs 01/12/24 linagliptin 5 mg tablet (Tradjenta) 5 mg PO DAILY #30 tabs 02/11/24 fluticasone 500 mcg-salmeterol 50 1 inh PO BID 90 days #180 ea 02/24/24 mcg/dose blistr powdr for inhalation (Wixela Inhub) pen needle, diabetic 31 gauge x #1,200 ea 03/07/24/16 (BD Ultra-Fine Short Pen Needle) atorvastatin 40 mg tablet 40 mg PO BEDTIME 90 days #90 tabs 03/26/24 cholecalciferol (vitamin D3) 25 25 mcg PO DAILY 90 days #90 caps 03/26/24 mcg (1,000 unit) capsule ipratropium 0.5 mg-albuterol 3 mg 3 ml inhalation Q6H PRN for 03/30/24 (2.5 mg base)/3 mL nebulization wheezing 30 days #90 mL soln amlodipine 5 mg tablet 5 mg PO DAILY 90 days #90 tabs 04/15/24 cholestyramine (with sugar) 4 gram 4 g PO BID 30 days #378 grams 04/15/24 oral powder tamsulosin 0.4 mg capsule 0.4 mg PO DAILY #90 caps 04/15/24 sodium polystyrene sulfonate 15 g PO BID 30 days #453.6 grams 04/29/24 blood sugar diagnostic (OneTouch #100 ea 04/30/24 Verio test strips) clindamycin HCl 150 mg capsule 450 mg (3 x 150 mg) PO TID 7 days 05/09/24 #63 caps pramipexole 0.125 mg tablet 0.125 mg PO BEDTIME 90 days #90 05/20/24 tabs zolpidem 5 mg tablet 5 mg PO BEDTIME PRN insomnia 30 06/15/24 days #30 tabs cephalexin 500 mg capsule 500 mg PO Q6H 7 days #28 caps 06/21/24 prednisone 20 mg tablet 20 mg PO DAILY 12 days #26 tabs 06/21/24 Allergies Allergy/AdvReac Type Severity Reaction Status Date / Time doxycycline Allergy Intermediate Itching Verified 06/21/24 09:51 levofloxacin Allergy Intermediate Itching Verified 06/21/24 09:51 metformin Allergy Intermediate diarrhea Verified 06/21/24 09:51 morphine [MORPHINE] Allergy Intermediate ITCHING Verified 06/21/24 09:51 tetracycline Allergy Intermediate Itching Verified 06/21/24 09:51 cefazolin AdvReac Mild Diarrhea, Verified 06/21/24 09:51 itchy Review of Systems Constitutional: Constitutional: Reports no additional constitutional complaints, Denies chills, Denies fever(s) and Denies night sweats Eyes: Eyes: Reports no additional eye complaints, Denies blurry vision, Denies change in vision, Denies diplopia, Denies eye discharge, Denies loss of vision and Denies eye pain ENT: Denies dizziness Cardiovascular: Cardiovascular: Reports no additional cardiovascular complaints, Denies chest pain, Denies lightheadedness, Denies Loss of Consciousness and Denies dyspnea Respiratory: Respiratory: Reports no additional respiratory complaints and Denies dyspnea Gastrointestinal: Gastrointestinal: Reports no additional gastrointestinal complaints, Denies abdominal pain, Denies melena, Denies hematochezia, Denies change in bowel habits and Denies change in stool character Genitourinary: Genitourinary: Reports no additional male genitourinary complaints, Denies hematuria, Denies oliguria, Denies difficulty urinating, Denies dysuria, Denies urinary frequency, Denies urinary hesitancy, Denies urinary incontinence and Denies urinary urgency Musculoskeletal: Musculoskeletal: Reports no additional musculoskeletal complaints, Denies numbness and Denies tingling Integumentary/Breasts: Comments: rash present to the bilateral feet, bilateral hands, and upper buttock Neurologic: Denies dizziness, Denies loss of vision, Denies numbness and Denies tingling Psychiatric: Psychiatric: Reports no additional psychiatric complaints Endocrine: Endocrine: Reports no additional endocrine complaints Hematologic/Lymphatic: Hematologic/Lymphatic: Reports no additional hematologic/lymphatic complaints Allergic/Immunologic: Allergic/Immunologic: Reports no additional allergic/immunologic complaints [facility] Past Medical History Attestation statement: The following information was validated with the patient. Source: old records reviewed and nursing notes reviewed Medical History Hypertensive retinopathy Nicotine dependence, cigarettes, uncomplicated Tubular adenoma of colon Restless leg syndrome Mild persistent asthma CKD stage 3 due to type 2 diabetes mellitus Diabetes mellitus, with long-term current use of insulin Pure hypercholesterolemia GERD (gastroesophageal reflux disease) Precordial chest pain Essential hypertension Non-rheumatic aortic stenosis Loss of hearing Anemia Asthma Surgical History History of esophagogastroduodenoscopy (EGD) History of colonoscopy History of cholecystectomy History of implantation of penile prosthesis Family History Family History Father No problems noted. Mother No problems noted. Family/Other FH: mental illness Brother In good health Sister In good health Son In good health Daughter In good health Other Mental health disorder Social History Social History Household Members: None Housing: Apartment Do you presently have visiting nurse or other home services: No Alcohol intake: current Alcohol intake frequency: holidays/special occasions only Alcohol type: hard liquor Patient Tobacco Use Status: Current everyday Tobacco user Tobacco use type: Cigarette Cigarettes Per Day: 10 e-Cigarette/Vaping Use: Never Used Second Hand Smoke Exposure: No Advance Directives: No Advance Directives Information Provided: Yes service: No Current occupational status: disabled Cognitive needs: No Hearing needs: No Vision needs: Yes Physical Exam ED Vital Signs: Vital Signs - 24 hr 06/21/24 09:47 06/21/24 10:00 06/21/24 12:06 Temperature 98.6 F 98.2 F 98.2 F Pulse Rate 97 93 93 Respiratory Rate 16 22 H 22 H Blood Pressure 132/60 110/68 110/68 Pulse Oximetry 95 98 98 Oxygen Delivery Method Room Air Room Air Room Air BMI result Body Mass Index 28.2 Const General: cooperative, no acute distress, alert and awake Nutritional Appearance: well nourished Orientation/consciousness: patient oriented x3 Limitations: no limitations HENMT Head: Yes normal to inspection and Yes atraumatic Ears: hearing grossly normal bilaterally and external ears normal General nose exam: Normal external nose present, no nasal discharge noted and no epistaxis Face and sinus: Yes normal facial exam, No abrasion and No laceration Mouth: Normal oral and palatal mucosa present, no drooling and no muffled voice Eyes General: appearance normal, both eyes and all related structures Periorbital: periorbital findings normal Eyelids: Yes eyelids normal Conjunctivae: conjunctivae normal Pupils: Equal, round and reactive pupils present EOM: EOMs intact bilaterally Neck Neck: Yes normal visual inspection, Yes full ROM and Yes no lymphadenopathy Chest Chest palpation & inspection: normal inspection of the chest Resp Effort & Inspection: normal respiratory effort and able to speak in complete sentences GI Inspection: Yes normal to inspection Skin Other: psoriatic type rash present to the bilateral feet, hands, and upper gluteal cleft Neuro General: patient oriented x3 and moves all extremities Cranial nerves: Yes Equal, round and reactive pupils present Cognition (Neuro): normal cognition Extrem General: Yes normal to inspection, Yes full ROM and Yes capillary refill normal Psych Appearance: grossly normal Mental Status: mental status grossly normal Affect: normal affect Attitude: cooperative Thought process: Normal thought process present Thought content: Normal thought content present Insight: Good insight present (Psych) Medications Administered Discontinued Medications Generic Name Dose Route Start Last Admin Trade Name Jarad PRN Reason Stop Dose Admin Methylprednisolone Sodium Succinate 60 mg 06/21/24 11:18 06/21/24 12:01 Methylprednisolone Sod Succ 125 Mg/2 Ml Vial IM 06/21/24 11:19 60 mg ONCE ONE Administration Medical Decision Making Medical Decision Making [facility] Narrative: Patient is a 73 year old assigned male at with a history of psoriasis presenting to the emergency department today with a psoriatic flare. Patient's physical exam was as noted in the physical exam portion of this note. I explained my physical exam findings to the patient. I answered all questions asked by the patient. I stressed the importance of the patient taking his medication as directed (either prescribed or as the over the counter packaging recommends). I stressed the importance of the patient following up with his primary care provider and his payloader machine operator. I stressed the importance of the patient returning to the emergency department immediately if his symptoms were to worsen or if he were to develop any dizziness, shortness of breath, difficulty breathing, chest pain, blurry vision, loss of vision, nausea, vomiting, abdominal pain, fever, chills, back pain, or any other complaints. Patient verbalized agreement and understanding with this treatment plan and discharge. Differential Diagnosis Differential Diagnoses: The differential diagnosis associated with the presentation includes Psoriasis Eczema Admission/Observation Consideration of admission/observation: Escalation of care including admission/observation considered Patient would have been admitted to the hospital had his clinical presentation warranted hospital admission. Chronic Conditions Patient?s care impacted by: Diabetes Discharge Plan Discharge Clinical Impression: Psoriasis Patient Disposition: Home, Self-Care Instructions: Psoriasis (ED) Additional Instructions: Follow up with your primary care provider and a payloader machine operator. Return to the emergency department immediately if your symptoms worsen or if you develop any dizziness, shortness of breath, difficulty breathing, chest pain, blurry vision, loss of vision, nausea, vomiting, abdominal pain, fever, chills, back pain, or any other complaints. Daniel un seguimiento con enrique m?dico de atenci?n primaria y un dermat?logo. Acuda inmediatamente al servicio de urgencias si fazal s?ntomas empeoran o si presenta mareos, falta de aliento, dificultad para respirar, dolor tor?cico, visi?n borrosa, p?rdida de visi?n, n?useas, v?mitos, dolor abdominal, fiebre, escalofr?os, dolor de espalda o cualquier otra molestia. Prescriptions: New prednisone 20 mg tablet 20 mg PO DAILY 12 Days Qty: 26 0RF Rx Instructions: Take 3 tablets for 5 days THEN; Take 2 tablets for 4 days THEN; Take 1 tablet for 3 days cephalexin 500 mg capsule 500 mg PO Q6H 7 Days Qty: 28 0RF No Action (DME) onetouch glucometer See Rx Instructions .Route .MEDSUPPLY Qty: 1 0RF Rx Instructions: As directed (DME) lancets [OneTouch Delica Lancets] 33 gauge misc See Rx Instructions .ROUTE .MEDSUPPLY Qty: 100 11RF Rx Instructions: Check by finger stick route 4 times every day (DME) AeroEclipse II Nebulizer Misc See Rx Instructions .Route Qty: 1 0RF Rx Instructions: As directed albuterol sulfate [Ventolin HFA] 90 mcg/actuation HFA aerosol inhaler 2 puff inhalation Q6H PRN (Reason: shortness of breath or wheezing) 30 Days Qty: 18 2RF albuterol sulfate 2.5 mg /3 mL (0.083 %) solution for nebulization 2.5 mg inhalation Q6H PRN (Reason: bronchospasm) 30 Days Qty: 360 0RF gabapentin 300 mg capsule 600 mg PO DAILY 90 Days Qty: 180 3RF aspirin 81 mg tablet,delayed release (DR/EC) 81 mg PO DAILY Qty: 90 3RF Jardiance 25 mg tablet 25 mg PO QAM Qty: 30 6RF Combivent Respimat 20-100 mcg/actuation mist 1 puff inhalation Q6H PRN (Reason: wheezing) 30 Days Qty: 4 4RF omeprazole 20 mg capsule,delayed release(DR/EC) 20 mg PO BID Qty: 180 2RF folic acid 1 mg tablet 1 mg PO DAILY Qty: 90 1RF Tradjenta 5 mg tablet 5 mg PO DAILY Qty: 30 6RF fluticasone propion-salmeterol [Wixela Inhub] 500-50 mcg/dose blister with device 1 inh PO BID 90 Days Qty: 180 3RF (DME) pen needle, diabetic [BD Ultra-Fine Short Pen Needle] 31 gauge x 5/16 needle See Rx Instructions .ROUTE .MEDSUPPLY Qty: 1200 11RF Rx Instructions: As directed daily with Lantus ipratropium-albuterol 0.5 mg-3 mg(2.5 mg base)/3 mL solution for nebulization 3 ml inhalation Q6H PRN (Reason: for wheezing) 30 Days Qty: 90 3RF cholestyramine (with sugar) 4 gram powder 4 g PO BID 30 Days Qty: 378 0RF Rx Instructions: administer w/meal; avoid other meds within 1hr before or 4-6hr after dose amlodipine 5 mg tablet 5 mg PO DAILY 90 Days Qty: 90 1RF tamsulosin 0.4 mg capsule 0.4 mg PO DAILY Qty: 90 1RF sodium polystyrene sulfonate Powder 15 g PO BID 30 Days Qty: 453.6 0RF (DME) OneTouch Verio test strips Strip See Rx Instructions .ROUTE .MEDSUPPLY Qty: 100 11RF Rx Instructions: Use 3 times a day to test BG daily for 30 days pramipexole 0.125 mg tablet 0.125 mg PO BEDTIME 90 Days Qty: 90 1RF zolpidem 5 mg tablet 5 mg PO BEDTIME PRN (Reason: insomnia) 30 Days Qty: 30 0RF triamcinolone acetonide 0.1 % ointment 1 appl topical BID 7 Days Qty: 30 0RF cyclobenzaprine 10 mg tablet 10 mg PO TID PRN (Reason: muscle spasm) Qty: 10 0RF acetaminophen [Tylenol] 325 mg capsule 650 mg PO Q4H PRN (Reason: pain) Qty: 30 0RF clindamycin HCl 150 mg capsule 450 mg PO TID 7 Days Qty: 63 0RF Otezla 30 mg tablet 30 mg PO BID (DME) diabetic shoes and inserts 9 See Rx Instructions .Route .MEDSUPPLY Qty: 1 0RF Rx Instructions: As directed clotrimazole-betamethasone 1-0.05 % cream 1 appl topical BID Qty: 15 0RF insulin glargine [Lantus Solostar U-100 Insulin] 100 unit/mL (3 mL) insulin pen 30 unit subcut QPM 90 Days Qty: 27 3RF Patient Comments: pt took 15 units yesterday atorvastatin 40 mg tablet 40 mg PO BEDTIME 90 Days Qty: 90 3RF cholecalciferol (vitamin D3) 25 mcg (1,000 unit) capsule 25 mcg PO DAILY 90 Days Qty: 90 1RF Referrals: Sheba Greco MD [Primary Care Provider] - Interventions: ED Discharge Assessment Last Done: 06/21/24 12:06 Discharge Date/Time: 06/21/24 12:08 Print Language: Telugu
--- NOTE | 2024-06-21 11:57 | PC.NURSE ---
Upon discharge, pt. refusing to leave because bloodwork was not done. Explained to pt. that PA wants him to follow up with Dermatology, also sent PA in to speak with pt.
--- NOTE | 2024-06-21 11:59 | PC.NURSE ---
PA spoke with pt. re: blood work. Pt. verbalizes understanding and is now agreeable to d/c.
[2024-06-21] MEDS: methylPREDNISolone Sod Succ 125 MG/2 ML VIAL 60 MG IM (12:01)
--- NOTE | 2024-06-21 12:05 | PC.NURSE ---
Pt. medicated per NOV.
[2024-06-21 12:06] VITALS: BP 110/68; PULSE 93; RESP 22; TEMP 36.8; O2SAT 98
== END 2024-06-21 12:08 | disposition home or self-care (01) ==
PROVIDERS: Emergency Provider Emergency Medicine; PCP Internal Medicine
DX: L40.9 Psoriasis, unspecified (principal); R21 Rash and other nonspecific skin eruption; E11.9 Type 2 diabetes mellitus without complications; F17.210 Nicotine dependence, cigarettes, uncomplicated; Z79.4 Long term (current) use of insulin; Z79.899 Other long term (current) drug therapy
CPT/HCPCS: 96372; 99283; 99284; J2919

== ENCOUNTER 2024-07-19 10:47 | Outpatient (AMB) | payer OTHER, SELFPAY ==
[2024-07-19 10:49] VITALS: BP 130/62; PULSE 97; O2SAT 96; BMI 26.3
--- NOTE | 2024-07-19 10:49 | A.OFFPC_ITS ---
Vital Signs 07/19/24 10:49 Height 5 ft 7 in Weight 168 lb BMI 26.3 BP 130/62 Blood Pressure Location Lt brachial Position Sitting Pulse 97 Pulse Source Pulse Oximeter Pulse Oximetry (%) 96 Oxygen Delivery Method Room Air Intake Visit Reasons: 3 piece prosthetics replac penile implant on 07/24 Intake Note: Patient is here for a Pre-op for 3 piece prosthetics replacement/penile implant scheduled with Dr. Velasquez on 07/24 Nursing Informatics Clinical Analyst Required: Yes Allergies doxycycline Allergy (Intermediate, Verified 07/19/24 11:52) Itching levofloxacin Allergy (Intermediate, Verified 07/19/24 11:52) Itching metformin Allergy (Intermediate, Verified 07/19/24 11:52) diarrhea morphine [MORPHINE] Allergy (Intermediate, Verified 07/19/24 11:52) ITCHING tetracycline Allergy (Intermediate, Verified 07/19/24 11:52) Itching cefazolin Adverse Reaction (Mild, Verified 07/19/24 11:52) Diarrhea, itchy Medication List - Last Reconciled 07/19/24 by Paige Valladares PA-C acetaminophen (Tylenol) 650 mg (2 x 325 mg) PO Q4H PRN albuterol sulfate 2.5 mg (3 mL) inhalation Q6H PRN 30 days amlodipine 5 mg PO DAILY 90 days apremilast (Otezla) 30 mg PO BID aspirin 81 mg PO DAILY atorvastatin 40 mg PO BEDTIME 90 days blood sugar diagnostic (QintiTouch Verio test strips) Use 3 times a day to test BG daily for 30 days cholecalciferol (vitamin D3) 25 mcg PO DAILY 90 days cholestyramine (with sugar) 4 gram 4 grams PO BID 30 days clotrimazole-betamethasone 1-0.05 % 1 appl topical BID [diabetic shoes and inserts As directed] empagliflozin (Jardiance) 25 mg PO QAM fluticasone propion-salmeterol 500-50 mcg/dose (Wixela Inhub) 1 inh PO BID 90 days folic acid 1 mg PO DAILY gabapentin 600 mg (2 x 300 mg) PO DAILY 90 days insulin glargine (Lantus Solostar U-100 Insulin) 30 units (0.3 mL) subcut QPM 90 days ipratropium-albuterol 0.5 mg-3 mg(2.5 mg base)/3 mL 3 mL inhalation Q6H PRN 30 days ipratropium-albuterol 20-100 mcg/actuation (Combivent Respimat) 1 puff inha lation Q6H PRN 30 days lancets Check by finger stick route 4 times every day linagliptin (Tradjenta) 5 mg PO DAILY nebulizers (AeroEclipse II Nebulizer) As directed omeprazole 20 mg PO BID [onetouch glucometer As directed] pen needle, diabetic (BD Ultra-Fine Short Pen Needle) As directed daily with Lantus pramipexole 0.125 mg PO BEDTIME 90 days sodium polystyrene sulfonate 15 grams PO BID 30 days tamsulosin 0.4 mg PO DAILY triamcinolone acetonide 0.1% 1 appl topical BID 1 week Ventolin HFA 90 mcg/actuation (albuterol sulfate) 2 puffs inhalation Q6H PRN 30 days NS zolpidem 5 mg PO BEDTIME PRN 30 days Tobacco use date assessed: 12/12/23 Fall risk assessment: No Falls in past year Last assessed Fall Risk: 07/19/24 Dental Screening Dental Screen Date: 12/12/23 HPI 3 piece prosthetics replac penile implant on 07/24 HPI Details 73-year-old male with past medical histo ry of diabetes mellitus type 2 on long-term current use of insulin, psoriatic arthritis last seen by Dr. Ballesteros March 2024 coming in for preoperative visit. Patient is scheduled to have removal and full replacement of inflatable penile implant with Dr. Khalil on 07/24/2024 at [facility] [place]. Labs completed 07/16/2024. Diabetes mellitus: A1c 8.2%. Presently on insulin, empagliflozin, linagliptin. Nursing Informatics Clinical Analyst was used for the duration of this appointment. Patient has no history of SC, CVA or CHF. FORMERLY [facility] Medical History Hypertensive retinopathy Nicotine dependence, cigarettes, uncomplicated Tubular adenoma of colon Restless leg syndrome Mild persistent asthma CKD stage 3 due to type 2 diabetes mellitus Diabetes mellitus, with long-term current use of insulin Pure hypercholesterolemia GERD (gastroesophageal reflux disease) Precordial chest pain Essential hypertension Non-rheumatic aortic stenosis Loss of hearing Anemia Asthma Surgical History History of esophagogastroduodenoscopy (EGD) History of colonoscopy History of cholecystectomy History of implantation of penile prosthesis Family History Father No problems noted. Mother No problems noted. Family/Other FH: mental illness Brother In good health Sister In good health Son In good health Daughter In good health Other Mental health disorder Social History Household Members: None Housing: Apartment Do you presently have visiting nurse or other home services: No Alcohol intake: current Alcohol intake frequency: holidays/special occasions only Alcohol type: hard liquor Patient Tobacco Use Status: Current everyday Tobacco user Tobacco use type: Cigarette Cigarettes Per Day: 10 e-Cigarette/Vaping Use: Never Used Second Hand Smoke Exposure: No service: No Current occupational status: disabled Cognitive needs: No Hearing needs: No Vision needs: Yes Questionnaire Thrive Questionnaire Date Thrive assessed: 12/12/23 AUDIT C Alcohol Use Questionnaire (AUDIT-C) 1. How often do you have a drink containing alcohol?: Monthly or less 2. How many drinks containing alcohol do you have on a typical day when you are drinking?: 1 or 2 3. How often do you have six or more drinks on one occasion?: Never Total Score: 1 Score Reviewed/Action Taken: Yes HENRIETTA-7 AMB Questionnaire HENRIETTA-7 Date HENRIETTA - 7 assessed: 03/26/24 Source: Developed by Drs. Wil Cummings, Nataly Summers, Benjy Grimes and colleagues, with an educational champ from [employer]. Review of Systems Const Denies body aches, Denies chills, Denies fever(s), Denies headache(s) and Denies poor appetite Eyes Reports no additional complaints ENT Denies dysphagia, Denies dizziness, Denies headache(s) and Denies odynophagia Card Denies chest pain, Denies syncope, Denies edema, Denies irregular heart rhythm, Denies lightheadedness and Denies dyspnea Resp Denies cough and Denies dyspnea GI Denies abdominal pain, Denies constipation, Denies dysphagia, Denies diarrhea, Denies nausea, Denies odynophagia and Denies vomiting Reports no additional complaints Musc Reports no additional complaints and Denies abnormal gait Skin/Breast Reports system reviewed and no additional complaints, except as documented Neuro Denies abnormal gait, Denies dizziness, Denies syncope and Denies headache(s) Psych Reports no additional complaints Physical exam (Primary Care) Vital Signs: Last Vital Signs Pulse 97 07/19/24 10:49 BP 130/62 07/19/24 10:49 Pulse Ox 96 07/19/24 10:49 Oxygen Delivery Method Room Air 07/19/24 10:49 BMI result Body Mass Index 26.3 Tobacco/Smoking Status: Tobacco use Status Tobacco use date assessed 12/12/23 07/19/24 10:49 Patient Tobacco Use Status Current everyday Tobacco 07/19/24 10:49 Tobacco use type Cigarette 07/19/24 10:49 e-Cigarette/Vaping Use Never Used 07/19/24 10:49 Thrive Assessment: Date of Thrive Assessment Date Thrive assessed 12/12/23 07/19/24 10:49 Const General: cooperative, healthy appearing, comfortable and no acute distress Orientation/consciousness: patient oriented x3 HENMT Head: Yes normocephalic Ears: hearing grossly normal bilaterally General nose exam: Normal external nose present Eyes General: appearance normal, both eyes and all related structures Conjunctivae: conjunctivae normal Neck Neck: Yes full ROM and Yes no lymphadenopathy Resp Effort & Inspection: normal respiratory effort Auscultation: clear to auscultation bilaterally, no crackles, no rales, no rhonchi and no wheezes Cardio Rate: regular rate Rhythm: regular rhythm Skin General skin exam: no rashes or lesions noted Neuro General: patient oriented x3 Gait exam (Neuro): Normal gait present Extrem General: Yes normal to inspection, Yes full ROM and No edema Psych Affect: normal affect Attitude: cooperative Insight: Good insight present (Psych) Judgement: Good judgement present (Psych) Results AMB Hemoglobin A1c AMB Hemoglobin A1c 8.2 % Last Edit by BENITA Ramírez on 07/19/24 11:58 Results Reviewed Results Reviewed: Laboratory Last Values Hgb A1c (Clinic) 8.2 % (4.0-6.0) H 07/19/24 11:26 Coding Level of Care Code Est Pt Level 4 (94656) Diagnoses Pre-op evaluation Z01.818 Type 2 diabetes mellitus with hyperglycemia, with long-term current use of insulin E11.65; Z79.4 Diabetes mellitus complication status: with hyperglycemia Diabetes mellitus type: type 2 Assessment & Plan Assessment & Plan (1) Pre-op evaluation: Code(s): Z01.818 - Encounter for other preprocedural examination Category: Medical Plan: Regarding preop clearance, the patient is at moderate-high risk for proposed surgery and possible complications such as delayed wound healing and infection. Patient's A1c is 8.2% which is over the recommended A1c for procedures. Patient states blood sugars at home have been within normal limits discussed we can retest A1c next week however likely will not changed in that time. Discussed with patient ultimately he will be up to a surgeon and we simply present recommendations about his chronic comorbidities. Reviewed with the patient that no surgery is completely free of risk and that this examination is to assist the surgeon in reviewing informed consent. Patient is not currently on any blood thinners, NSAIDs, or antiplatelet medications. (2) Diabetes mellitus, with long-term current use of insulin: Code(s): E11.9 - Type 2 diabetes mellitus without complications; Z79.4 - assisted (current) use of insulin Category: Medical Qualifiers: Diabetes mellitus complication status: with hyperglycemia Diabetes mellitus type: type 2 Qualified Code(s): E11.65 - Type 2 diabetes mellitus with hyperglycemia; Z79.4 - assisted (current) use of insulin Plan: Patient's A1c was 6.8% in March on current medication regimen. We will not adjust his medications at this time however discussed the importance of diet modification and exercise. Decrease the amount of carbohydrates such as pasta, bread, rice, and potatoes and limit the amount of sweets. Although fruits are generally healthy they should be eaten in moderation as they are still high in sugar. Hemoglobin A1c goal of less than 7%. Plan This note was constructed using voice recognition software. While every effort has been made to ensure accuracy and fountain waitress/waiter, still areas may have been included sometimes these areas may affect the content or meeting of the given symptoms. Total time spent caring for the patient today was 30 minutes. This includes time spent before the visit reviewing the chart, time spent during the visit, and time spent after the visit and documentation. Orders: Orders 2 AMB Hemoglobin A1c 07/19/24 E11.65 - Type 2 diabetes mellitus with hyperglycemia, Z79.4 - weather stripper (current) use of insulin Hemoglobin A1c 07/22/24 Z00.00 - Encounter for general adult medical examination without abnormal findings ECG 12 lead EKG 07/19/24 Z01.818 - Encounter for other preprocedural examination
== END 2024-07-19 12:36 | disposition home or self-care (01) ==
PROVIDERS: PCP Internal Medicine
DX: Z01.818 Encounter for other preprocedural examination (principal); E11.65 Type 2 diabetes mellitus with hyperglycemia; Z79.4 Long term (current) use of insulin

== ENCOUNTER → 2024-07-19 10:47 | Outpatient (BNVA) | payer OTHER, SELFPAY | PROVIDERS: PCP Internal Medicine | DX: Z01.818 Encounter for other preprocedural examination (principal); E11.65 Type 2 diabetes mellitus with hyperglycemia; Z79.4 Long term (current) use of insulin | CPT/HCPCS: 83036; 99212 ==

== ENCOUNTER 2024-07-22 07:28 | Outpatient (REF) | payer OTHER, SELFPAY ==
[2024-07-22 08:33] LABS: Creatinine Urine 156.84 mg/dL; Microalbum/Creatinine Ratio Ur 179.1 ug/mg cr (<30)
[2024-07-22 08:41] LABS: Alanine Aminotransferase 27 U/L (0-40); Albumin Level 4.1 g/dL (3.5-5.0); Alkaline Phosphatase 60 U/L (39-117); Anion Gap 12 (12-20); Aspartate Amino Transferase 24 U/L (5-37); Bilirubin Total 0.4 mg/dL (0.0-1.0); Blood Urea Nitrogen 17 mg/dL (9-16); Calcium 9.3 mg/dL (8.4-10.2); Carbon Dioxide 25 mmol/L (22-29); Chloride 108 mmol/L (96-108); Cholesterol 103 mg/dL (<200); Estimated Glomerular Filt Rate > 60; Glucose Fasting 96 mg/dL (60-99); HDL Cholesterol 52 mg/dL (>40); LDL Cholesterol Calculated 41 mg/dL (<100); Potassium 4.1 mmol/L (3.3-5.1); Sodium 141 mmol/L (135-145); Total Protein 7.5 g/dL (6.5-8.0); Triglycerides 51 mg/dL (<150)
[2024-07-22 09:33] LABS: Estimated Average Glucose 186 mg/dL; Hemoglobin A1C 234.1408 umol/L; Hemoglobin A1c % 8.1 % (<6.0); Total Hemoglobin (HGBA1C) 3613.8967 umol/L
== END 2024-07-22 07:29 | disposition home or self-care (01) ==
LOC: HO.LAB 07:28
PROVIDERS: PCP Internal Medicine; Visit Provider Internal Medicine
DX: Z00.00 Encounter for general adult medical examination without abnormal findings (principal); E11.65 Type 2 diabetes mellitus with hyperglycemia; Z94.4 Liver transplant status; E78.5 Hyperlipidemia, unspecified; E55.9 Vitamin D deficiency, unspecified
CPT/HCPCS: 36415; 80053; 80061; 82043; 82306; 82570; 83036

== ENCOUNTER 2024-08-08 13:03 | Outpatient (AMB) | payer OTHER, SELFPAY ==
[2024-08-08 13:09] VITALS: BP 136/62; PULSE 104; O2SAT 95; BMI 26.5
--- NOTE | 2024-08-08 13:09 | A.OFFPC_ITS ---
Vital Signs 08/08/24 13:09 Height 5 ft 7 in Weight 169 lb 4 oz BMI 26.5 BP 136/62 Blood Pressure Location Lt brachial Position Sitting Pulse 104 H Pulse Source Pulse Oximeter Pulse Oximetry (%) 95 Oxygen Delivery Method Room Air Intake Visit Reasons: dm Communications Manager Required: No Accompanied by: Self / Same As Patient Allergies doxycycline Allergy (Intermediate, Verified 08/08/24 13:17) Itching levofloxacin Allergy (Intermediate, Verified 08/08/24 13:17) Itching metformin Allergy (Intermediate, Verified 08/08/24 13:17) diarrhea morphine [MORPHINE] Allergy (Intermediate, Verified 08/08/24 13:17) ITCHING tetracycline Allergy (Intermediate, Verified 08/08/24 13:17) Itching cefazolin Adverse Reaction (Mild, Verified 08/08/24 13:17) Diarrhea, itchy Medication List - Last Reconciled 08/08/24 by Sheba Corbett MD acetaminophen (Tylenol) 650 mg (2 x 325 mg) PO Q4H PRN albuterol sulfate 2.5 mg (3 mL) inhalation Q6H PRN 30 days amlodipine 5 mg PO DAILY 90 days apremilast (Otezla) 30 mg PO BID aspirin 81 mg PO DAILY atorvastatin 40 mg PO BEDTIME 90 days blood sugar diagnostic ([employer] Verio test strips) Use 3 times a day to test BG daily for 30 days cholecalciferol (vitamin D3) 25 mcg PO DAILY 90 days cholestyramine (with sugar) 4 gram 4 grams PO BID 30 days clotrimazole-betamethasone 1-0.05 % 1 appl topical BID [diabetic shoes and inserts As directed] empagliflozin (Jardiance) 25 mg PO QAM fluticasone propion-salmeterol 500-50 mcg/dose (Wixela Inhub) 1 inh PO BID 90 days folic acid 1 mg PO DAILY gabapentin 600 mg (2 x 300 mg) PO DAILY 90 days insulin glargine (Lantus Solostar U-100 Insulin) 30 units (0.3 mL) subcut QPM 90 days ipratropium-albuterol 0.5 mg-3 mg(2.5 mg base)/3 mL 3 mL inhalation Q6H PRN 30 days ipratropium-albuterol 20-100 mcg/actuation (Combivent Respimat) 1 puff inhalation Q6H PRN 30 days lancets Check by finger stick route 4 times every day linagliptin (Tradjenta) 5 mg PO DAILY nebulizers (AeroEclipse II Nebulizer) As directed omeprazole 20 mg PO BID [onetouch glucometer As directed] pen needle, diabetic (BD Ultra-Fine Short Pen Needle) As directed daily with Lantus pramipexole 0.125 mg PO BEDTIME 90 days sodium polystyrene sulfonate 15 grams PO BID 30 days tamsulosin 0.4 mg PO DAILY triamcinolone acetonide 0.1% 1 appl topical BID 1 week Ventolin HFA 90 mcg/actuation (albuterol sulfate) 2 puffs inhalation Q6H PRN 30 days NS zolpidem 5 mg PO BEDTIME PRN 30 days Tobacco use date assessed: 12/12/23 Fall risk assessment: No Falls in past year Last assessed Fall Risk: 08/08/24 Dental Screening Dental Screen Date: 12/12/23 HPI HPI Comments History of Present Illness Details This is a 73-year-old male with diabetes mellitus type 2 on long-term current use of insulin, hypertension, pure hypercholesterolemia and psoriatic arthritis that comes today for follow-up on his conditions. A1c has improved but still elevated and I will increase insulin. Blood pressure stable. LDL w ithin goal. Psoriatic arthritis well controlled with Otezla. Complains of polyuria and has a Urologist. Tamsulosin was refilled. No chest pain or shortness on breath. Advised to quit smoking. He is a smoker and will have CT for lung cancer screening tomorrow and I order ultrasound of the abdomen to rule out abdominal aortic aneurysm. [facility]LY [facility] Medical History Hypertensive retinopathy Nicotine dependence, cigarettes, uncomplicated Tubular adenoma of colon Restless leg syndrome Mild persistent asthma CKD stage 3 due to type 2 diabetes mellitus Diabetes mellitus, with long-term current use of insulin Pure hypercholesterolemia GERD (gastroesophageal reflux disease) Precordial chest pain Essential hypertension Non-rheumatic aortic stenosis Loss of hearing Anemia Asthma Surgical History History of esophagogastroduodenoscopy (EGD) History of colonoscopy History of cholecystectomy History of implantation of penile prosthesis Family History Father No problems noted. Mother No problems noted. Family/Other FH: mental illness Brother In good health Sister In good health Son In good health Daughter In good health Other Mental health disorder Social History Household Members: None Housing: Apartment Do you presently have visiting nurse or other home services: No Alcohol intake: current Alcohol intake frequency: holidays/special occasions only Alcohol type: hard liquor Patient Tobacco Use Status: Current everyday Tobacco user Tobacco use type: Cigarette Cigarettes Per Day: 10 e-Cigarette/Vaping Use: Never Used Second Hand Smoke Exposure: No service: No Current occupational status: disabled Cognitive needs: No Hearing needs: No Vision needs: Yes Questionnaire Thrive Questionnaire Date Thrive assessed: 12/12/23 HENRIETTA-7 AMB Questionnaire HENRIETTA-7 Date HENRIETTA - 7 assessed: 03/26/24 Source: Developed by Drs. Wil Cummings, Nataly Summers, Benjy Grimes and colleagues, with an educational champ from [employer]. Review of Systems Const All systems reviewed & are unremarkable except as noted in HPI and below Card Denies chest pain at rest, Denies chest pain with activity, Denies edema, Denies irregular heart rhythm, Denies claudication, Denies dyspnea, Denies dyspnea on exertion, Denies orthopnea, Denies paroxysmal nocturnal dyspnea and Denies slow heart rate Resp Denies cough, Denies dyspnea and Denies dyspnea on exertion GI Denies abdominal pain, Denies change in bowel habits, Denies excessive flatus, Denies nausea and Denies vomiting Physical exam (Primary Care) Vital Signs: Last Vital Signs Pulse 104 H 08/08/24 13:09 BP 136/62 08/08/24 13:09 Pulse Ox 95 08/08/24 13:09 Oxygen Delivery Method Room Air 08/08/24 13:09 BMI result Body Mass Index 26.5 Tobacco/Smoking Status: Tobacco use Status Tobacco use date assessed 12/12/23 08/08/24 13:09 Patient Tobacco Use Status Current everyday Tobacco 08/08/24 13:09 Tobacco use type Cigarette 08/08/24 13:09 e-Cigarette/Vaping Use Never Used 08/08/24 13:09 Are you ready to quit: No Tobacco cessation counseling provided: Yes Items discussed: Nicotine replacement and QuitWorks Relapse Prevention: discussed the importance of a supportive environment, discussed negative mood or depression after quitting, weight gain after smoking is common and discussed dietary, exercise and/or lifestyle changes Number of minutes spent counselin CPT code: 73695 - 4-10 Minutes Thrive Assessment: Date of Thrive Assessment Date Thrive assessed 12/12/23 08/08/24 13:09 Resp Effort & Inspection: normal respiratory effort Auscultation: clear to auscultation bilaterally Cardio Jugular venous distension: no JVD Rate: regular rate Rhythm: regular rhythm Heart sounds: S1 normal heart sound present and S2 normal heart sound present Extrem General: Yes full ROM Office Procedures Flu Questionnaire Does the patient have a severe egg allergy?: No Does the patient have severe life threatening allergies?: No Does the patient have a fever or illness today?: No Has the patient ever had Guillain-[place] Syndrome?: No Has the patient ever had any past reaction to a flu shot?: No Immunizations Fluarix Triv [id number] (PF) 45 mcg (15 mcg x 3)/0.5 mL IM syringe Performing Provider: Sheba Corbett MD [facility] [place] Documented (not given) by: SONDRA Lovett on 08/08/24 13:14 Reason Not Given: Received Previously Coding Level of Care Code Est Pt Level 4 (90106) Complex EM visit Add On G2211 Diagnoses Type 2 diabetes mellitus with hyperglycemia, with long-term current use of insulin E11.65; Z79.4 Diabetes mellitus type: type 2 Diabetes mellitus complication status: with hyperglycemia Pure hypercholesterolemia E78.00 Essential hypertension I10 Psoriatic arthritis L40.50 Smoker F17.200 Additional Codes Vital Signs *Quality* - CPT code: 05240 - 4-10 Minutes ([id number]) Time Spent (min) 25 Assessment & Plan Assessment & Plan (1) Diabetes mellitus, with long-term current use of insulin: Code(s): E11.9 - Type 2 diabetes mellitus without complications; Z79.4 - rodent exterminator (current) use of insulin Category: Medical Qualifiers: Diabetes mellitus type: type 2 Diabetes mellitus complication status: with hyperglycemia Qualified Code(s): E11.65 - Type 2 diabetes mellitus with hyperglycemia; Z79.4 - long-term (current) use of insulin Plan: Increase insulin. A1c goal is equal or less than 7%. (2) Pure hypercholesterolemia: Code(s): E78.00 - Pure hypercholesterolemia, unspecified Category: Medical Plan: Continue statins. LDL goal is less than 70. (3) Essential hypertension: Code(s): I10 - Essential (primary) hypertension Category: Medical Plan: Continue amlodipine. Blood pressure goal is equal or less than 130/80. (4) Psoriatic arthritis: Code(s): L40.50 - Arthropathic psoriasis, unspecified Category: Medical Plan: Continue Otezla. (5) Smoker: Code(s): F17.200 - Nicotine dependence, unspecified, uncomplicated Category: Social Hx Plan: Ultrasound of the abdomen ordered to rule out abdominal aortic aneurysm. CT lung cancer screening scheduled for tomorrow. Orders: Orders Influenza [id number] Immunization Today Z23 - Encounter for immunization US abdominal aortic aneurysm Today F17.200 - Nicotine dependence, unspecified, uncomplicated Medications: New zolpidem 10 mg PO BEDTIME 30 days 30 tabs 0RF Changed From insulin glargine (Lantus Solostar U-100 Insulin) 30 units (0.3 mL) subcut QPM 90 days 27 mL 3RF To insulin glargine (Lantus Solostar U-100 Insulin) 33 units (0.33 mL) subcut QPM 90 days 29.7 mL 3RF Refilled tamsulosin 0.4 mg PO DAILY 90 caps 1RF Discontinued zolpidem Discontinued Reason: Order 5 mg PO BEDTIME 30 days PRN 30 tabs 0RF insomnia
== END 2024-08-08 13:31 | disposition home or self-care (01) ==
LOC: HO.HMCH 13:03
PROVIDERS: PCP Internal Medicine; Visit Provider Internal Medicine
DX: E11.65 Type 2 diabetes mellitus with hyperglycemia (principal); Z79.4 Long term (current) use of insulin; L40.50 Arthropathic psoriasis, unspecified; E78.00 Pure hypercholesterolemia, unspecified; I10 Essential (primary) hypertension; F17.210 Nicotine dependence, cigarettes, uncomplicated

== ENCOUNTER → 2024-08-08 13:03 | Outpatient (BNVA) | payer OTHER, SELFPAY | PROVIDERS: PCP Internal Medicine; Visit Provider Internal Medicine | DX: E11.65 Type 2 diabetes mellitus with hyperglycemia (principal); E78.00 Pure hypercholesterolemia, unspecified; I10 Essential (primary) hypertension; L40.50 Arthropathic psoriasis, unspecified; F17.200 Nicotine dependence, unspecified, uncomplicated; Z79.4 Long term (current) use of insulin; Z71.6 Tobacco abuse counseling | CPT/HCPCS: 99212 ==

== ENCOUNTER 2024-08-09 12:35 | Outpatient (REF) | payer OTHER, SELFPAY | END 2024-08-09 12:36 | disposition home or self-care (01) | LOC: HO.CT 12:35 | PROVIDERS: PCP Internal Medicine; Visit Provider Physician Assistant Medical | DX: Z12.2 Encounter for screening for malignant neoplasm of respiratory organs (principal); F17.210 Nicotine dependence, cigarettes, uncomplicated | CPT/HCPCS: 71271 ==

== ENCOUNTER 2024-08-16 10:02 | Outpatient (REF) | payer OTHER, SELFPAY ==
--- NOTE | ~2024-08-16 | US_ITS ---
EXAMINATION: US RETROPERITONEAL LIMITED (AORTA) CLINICAL INFORMATION: History of smoking. COMPARISON: CT abdomen/pelvis dated 02/20/2022 TECHNIQUE: Perez-scale, color Doppler and spectral Doppler evaluation of the abdominal aorta. FINDINGS: The aorta is normal. The measurements of the aorta in maximum AP and transverse dimensions respectively are as follows: Proximal: 2.8 x 2.7 cm. Mid: 2.1 x 1.9 cm. Distal: 1.8 x 1.6 cm. The measurements of the common iliac arteries in maximum dimensions are as follows: Right: AP: 0.9 cm. TRV: 0.8 cm. Left: AP: 0.9 cm. TRV: 0.9 cm. US/US abdominal aortic aneurysm IMPRESSION: No abdominal aortic or common iliac artery aneurysm. Electronically signed by: Sissy Quintanilla MD 09/11/2024 05:00 PM [facility]
== END 2024-08-16 10:03 | disposition home or self-care (01) ==
LOC: HO.US 10:02
PROVIDERS: PCP Internal Medicine; Visit Provider Internal Medicine
DX: Z13.6 Encounter for screening for cardiovascular disorders (principal); F17.200 Nicotine dependence, unspecified, uncomplicated
CPT/HCPCS: 76706

== ENCOUNTER → 2024-09-17 12:35 | Outpatient (REF) | payer OTHER, SELFPAY ==
--- NOTE | 2024-09-17 12:38 | CA_ITS ---
Transthoracic Echocardiogram Patient (Last, First, Middle): Jonathon Harper, Gender: Male Date of : 1950 Age: 73 Procedure Date: 09/17/2024 Procedure Type: Transthoracic Echocardiogram Location: OP Height: 170.18 cm Weight: 72.58 kg BSA: 1.84 m2 Heart Rate: bpm BP: 118 / 60 mmHg Travel Rn: Referring MD: Ted Josue MD Symptoms: I35.0 - Nonrheumatic aortic (valve) stenosis Study Quality: Adequate ECG Rhythm: Sinus Conclusions: - The left ventricular systolic function is normal. The calculated ejection fraction is 63% by biplane method. - There is mild to moderate aortic valve stenosis. Findings Left Ventricle Normal left ventricular cavity size. There is mildly increased left ventricular wall thickness. The left ventricular systolic function is normal. The calculated ejection fraction is 63% by biplane method. Diastolic function is normal for age. Possible basal inferior hypokinesis. Right Ventricle Normal right ventricular cavity size and systolic function. Atria Both atria are normal in size. Aortic Valve There is mild calcification of the aortic valve. There is mild to moderate aortic valve stenosis. The peak aortic velocity is 2.71 m/s with a calculated peak gradient of 29 mmHg. The mean gradient is 16 mmHg. The aortic valve area is 1.37 cm2. There is no aortic valve regurgitation. Mitral Valve The mitral valve appears normal. There is no mitral valve regurgitation. There is no mitral valve stenosis. Pulmonic Valve The pulmonic valve is likely normal. Tricuspid Valve There is trace tricuspid valve regurgitation. There is no evidence of pulmonary hypertension. Great Vessels The asc aorta is normal in size. Venous The inferior vena cava is normal in size and collapses less than 50% with inspiration. Pericardium/Pleural There is no evidence of pericardial effusion. Prior Study Comparison Changes noted compared to prior study dated: 06/24/2022. slight progression of aortic stenosis; wall motion appears similar on image comparison. Measurements 2D Linear Measurements IVSd: 1.05 0.6-0.9/0.6-1.0 cm LVIDd: 4.11 3.9-5.3/4.2-5.9 cm LVIDd Index: 2.23 2.4-3.2/2.2-3.1 cm/m2 LVIDs: 2.54 2.0-3.6 cm LVPWd: 1.09 0.7-1.1 cm Ao Root: 3.20 2.1-3.5 cm LA Diam: 4.00 2.7-3.8/3.0-4.0 cm LAIDs Index: 2.17 1.5-2.3 cm/m2 LV Mass: 181.70 67-162/88-224 g LV Mass Index: 98.75 43-95/49-115 g/m2 LVOT Diam: 2.10 3.0+(-)1.3 cm 2D Systolic Function EF 4C: 66.30 >55% EF 2C: 56.00 >55% EF BiP: 62.70 >55% Mitral Valve MV Pk E: 0.93 MV PK A: 1.02 MV Decel Time: 163.00 E/A: 0.90 E'Lateral: 9.14 E'Medial: 7.72 E/E' Med: 12.00 E/E' Lat: 10.20 PHT: 48.00 MVA PHT: 4.58 Decel Pondera: 5.72 Aortic Valve AoV Pk Erasto: 2.71 AoV Mn Erasto: 1.81 AoV VTI: 0.61 AoV Pk Grad: 29.00 Aov Mn Grad: 16.00 TUNDE Cont.VTI: 1.37 LVOT LVOT Pk Erasto: 1.07 LVOT Mn Erasto: 0.65 LVOT VTI: 0.24 LVOT Pk Grad: 5.00 LVOT Mn Grad: 2.00 LVOT Diam: 2.10 LVOT Area: 3.46 Diastolic Function MV Pk E: 0.93 MV Pk A: 1.02 E/A: 0.90 E'Medial: 7.72 E/E' Med: 12.00 E' Laterial: 9.14 E/E' Lat: 10.20 Right Ventricle TAPSE (mm): 25.00 TVS' Erasto: 12.00 Tricuspid Valve TR Pk Erasto: 2.45 TR Pk Grad: 24.00 RA Press: 3.00 RVSP: 27.00 Great Vessels Aorta Ao Root-2D: 3.20 2.0-3.7 cm Ao Asc: 3.50 2.1-3.4 cm Pulmonary Valve PV Pk Erasto: 1.10 Peak PV Grad: 5.00 Updated in Other Vendor System with Status of Final Ted Josue MD electronically signed on 09/19/2024 12:12:24 PM with status of Final
== END ==
LOC: HO.CARD 12:35
PROVIDERS: PCP Internal Medicine; Visit Provider Internal Medicine
DX: I35.0 Nonrheumatic aortic (valve) stenosis (principal)
CPT/HCPCS: 93306

== ENCOUNTER → 2024-09-17 12:38 | Outpatient (BNV) | payer OTHER, SELFPAY | PROVIDERS: PCP Internal Medicine; Visit Provider Internal Medicine | DX: I35.0 Nonrheumatic aortic (valve) stenosis (principal) | CPT/HCPCS: 93306 ==

== ENCOUNTER 2024-10-07 08:24 | Outpatient (AMB) | payer OTHER, SELFPAY ==
--- NOTE | 2024-10-07 09:04 | MHC.OFFVIS ---
Vital Signs 10/07/24 09:05 Height 5 ft 7 in Weight 163 lb 2.273 oz BMI 25.5 BP 100/62 Blood Pressure Location Lt brachial Position Sitting Pulse 87 Pulse Source Monitor Intake Visit Reasons: 1yr f/u Echo r/s fr 09/10/24 Motor Vehicle Clerk Required: No Allergies doxycycline Allergy (Intermediate, Verified 10/07/24 09:07) Itching levofloxacin Allergy (Intermediate, Verified 10/07/24 09:07) Itching metformin Allergy (Intermediate, Verified 10/07/24 09:07) diarrhea morphine [MORPHINE] Allergy (Intermediate, Verified 10/07/24 09:07) ITCHING tetracycline Allergy (Intermediate, Verified 10/07/24 09:07) Itching cefazolin Adverse Reaction (Mild, Verified 10/07/24 09:07) Diarrhea, itchy Medication List - Last Reconciled 10/07/24 by Shonda Youngblood NP-C acetaminophen (Tylenol) 650 mg (2 x 325 mg) PO Q4H PRN albuterol sulfate 2.5 mg (3 mL) inhalation Q6H PRN 30 days amlodipine 5 mg PO DAILY 90 days apremilast (Otezla) 30 mg PO BID aspirin 81 mg PO DAILY atorvastatin 40 mg PO BEDTIME 90 days blood sugar diagnostic (Learneratoruch Verio test strips) Use 3 times a day to test BG daily for 30 days cholecalciferol (vitamin D3) 25 mcg PO DAILY 90 days cholestyramine (with sugar) 4 gram 4 grams PO BID 30 days clotrimazole-betamethasone 1-0.05 % 1 appl topical BID [diabetic shoes and inserts As directed] fluticasone propion-salmeterol 500-50 mcg/dose (Wixela Inhub) 1 inh PO BID 90 days gabapentin 600 mg (2 x 300 mg) PO DAILY 90 days insulin glargine (Lantus Solostar U-100 Insulin) 33 units (0.33 mL) subcut QPM 90 days ipratropium-albuterol 0.5 mg-3 mg(2.5 mg base)/3 mL 3 mL inhalation Q6H PRN 30 days ipratropium-albuterol 20-100 mcg/actuation (Combivent Respimat) 1 puff inhalation Q6H PRN 30 days lancets Check by finger stick route 4 times every day lancets (CareTouch Safety Lancets) As directed TID linagliptin (Tradjenta) 5 mg PO DAILY nebulizers (AeroEclipse II Nebulizer) As directed omeprazole 20 mg PO BID [onetouch glucometer As directed] pen needle, diabetic (BD Ultra-Fine Short Pen Needle) As directed daily with Lantus pramipexole 0.125 mg PO BEDTIME 90 days sodium polystyrene sulfonate 15 grams PO BID 30 days tamsulosin 0.4 mg PO DAILY triamcinolone acetonide 0.1% 1 appl topical BID 1 week Ventolin HFA 90 mcg/actuation (albuterol sulfate) 2 puffs inhalation Q6H PRN 30 days NS zolpidem 10 mg PO BEDTIME 30 days HPI HPI 1yr f/u Echo r/s fr 09/10/24: Details: Jonathon is a 73-year-old male past medical history of hypertension, hyperlipidemia, diabetes, smoking, aortic stenosis who presents for follow-up after recent echo. Today he reports that he has been doing well over the last year. His last prior visit was 09/28/2023. He denies any concerning symptoms. No chest discomfort, shortness of breath, palpitations, lightheadedness. He reports good activity tolerance. He does admit to being mostly sedentary and likes to watch TV and visit with friends. He is compliant with medications. [facility] Medical History Hypertensive retinopathy Nicotine dependence, cigarettes, uncomplicated Tubular adenoma of colon Restless leg syndrome Mild persistent asthma CKD stage 3 due to type 2 diabetes mellitus Diabetes mellitus, with long-term current use of insulin Pure hypercholesterolemia GERD (gastroesophageal reflux disease) Precordial chest pain Essential hypertension Non-rheumatic aortic stenosis Loss of hearing Anemia Asthma Surgical History History of esophagogastroduodenoscopy (EGD) History of colonoscopy History of cholecystectomy History of implantation of penile prosthesis Family History Father No problems noted. Mother No problems noted. Family/Other FH: mental illness Brother In good health Sister In good health Son In good health Daughter In good health Other Mental health disorder Social History Household Members: None Housing: Apartment Do you presently have visiting nurse or other home services: No Alcohol intake: current Alcohol intake frequency: holidays/special occasions only Alcohol type: hard liquor Patient Tobacco Use Status: Current everyday Tobacco user Tobacco use type: Cigarette Cigarettes Per Day: 10 e-Cigarette/Vaping Use: Never Used Second Hand Smoke Exposure: No service: No Current occupational status: disabled Cognitive needs: No Hearing needs: No Vision needs: Yes Review of Systems Const All systems reviewed & are unremarkable except as noted in HPI and below ENT Denies dizziness Card Denies chest pain, Denies chest pain at rest, Denies chest pain with activity, Denies rapid heart rate, Denies pedal edema, Denies edema, Denies leg edema, Denies lightheadedness, Denies palpitations, Denies dyspnea, Denies dyspnea on exertion and Denies orthopnea Resp Denies cough, Denies dyspnea and Denies dyspnea on exertion GI Denies hematochezia and Denies change in stool character Musc Denies abnormal gait, Denies limited range of motion, Denies muscle cramps, Denies muscle weakness, Denies numbness, Denies radiating pain into limb, Denies stiffness and Denies tingling Neuro Denies abnormal gait, Denies dizziness, Denies numbness and Denies tingling Endo Denies palpitations Physical Exam Vital Signs: Last Vital Signs Pulse 87 10/07/24 09:05 BP 100/62 10/07/24 09:05 BMI result Body Mass Index 25.5 Const General: cooperative, healthy appearing, comfortable and no acute distress Orientation/consciousness: patient oriented x3 Neck Neck: Yes normal visual inspection and Yes no JVD Resp Effort & Inspection: normal respiratory effort Auscultation: clear to auscultation bilaterally, no rales, no rhonchi and no wheezes Cardio Jugular venous distension: no JVD Rate: regular rate Rhythm: regular rhythm Heart sounds: S1 normal heart sound present, S2 normal heart sound present, no murmurs and no rubs Neuro General: patient oriented x3 Extrem General: Yes normal to inspection, No no pedal edema and No calf tenderness Psych Appearance: grossly normal Mental Status: mental status grossly normal Speech and movement: Normal speech and movement present Office Procedures EKG Details: Today, read by me, Sinus rhythm with sinus arrythmia, rate 87, QTc 406 ms [id number], Complete Assessment & Plan Assessment & Plan (1) Non-rheumatic aortic stenosis: Code(s): I35.0 - Nonrheumatic aortic (valve) stenosis Category: Medical Plan: History of aortic stenosis. Most recent echo 09/17/2024 shows EF 63%, [id number] , mean gradient 16 mmHg, aortic valve area 1.37 centimeter sq. Diagnosis of aortic stenosis reviewed with him. Cardinal signs of severe discussed. He has no concerning symptoms at this time. Will arrange for echocardiogram in 1 year. Cardiology follow-up 1 year, sooner if needed. (2) Essential hypertension: Code(s): I10 - Essential (primary) hypertension Category: Medical Plan: Well controlled at this time. No med changes made. (3) Pure hypercholesterolemia: Code(s): E78.00 - Pure hypercholesterolemia, unspecified Category: Medical Plan: [place] LDL goal less than 70 in patient with diabetes. Labs done 07/22/2024 shows LDL 41. Continue atorvastatin 40 mg daily. (4) Diabetes mellitus, with long-term current use of insulin: Code(s): E11.9 - Type 2 diabetes mellitus without complications; Z79.4 - terminal operations supervisor (current) use of insulin Category: Medical Qualifiers: Diabetes mellitus type: type 2 Diabetes mellitus complication status: with hyperglycemia Qualified Code(s): E11.65 - Type 2 diabetes mellitus with hyperglycemia; Z79.4 - shelter (current) use of insulin Plan: Hemoglobin A1c goal less than 7. Followed by PCP (5) Smoker: Code(s): F17.200 - Nicotine dependence, unspecified, uncomplicated Category: Social Hx Plan: Benefits of smoking cessation reviewed. Plan Time spent on chart review, documentation, interview and assessment Orders: Orders CA echo transthoracic complete 09/15/25 I10 - Essential (primary) hypertension, I35.0 - Nonrheumatic aortic (valve) stenosis Coding Level of Care Code Est Pt Level 4 (81473) Complex EM visit Add On G2211 Diagnoses Non-rheumatic aortic stenosis I35.0 Essential hypertension I10 Pure hypercholesterolemia E78.00 Type 2 diabetes mellitus with hyperglycemia, with long-term current use of insulin E11.65; Z79.4 Diabetes mellitus type: type 2 Diabetes mellitus complication status: with hyperglycemia Smoker F17.200 CPT Codes EKG - CPT: [id number], Complete ([id number]) Time Spent (min) 30
[2024-10-07 09:05] VITALS: BP 100/62; PULSE 87; BMI 25.5
== END 2024-10-07 09:36 | disposition home or self-care (01) ==
PROVIDERS: PCP Internal Medicine; Visit Provider Nurse Practitioner Family
DX: I35.0 Nonrheumatic aortic (valve) stenosis (principal); I10 Essential (primary) hypertension; E78.00 Pure hypercholesterolemia, unspecified; E11.65 Type 2 diabetes mellitus with hyperglycemia; Z79.4 Long term (current) use of insulin; F17.200 Nicotine dependence, unspecified, uncomplicated
CPT/HCPCS: 93010; 99214; G2211

== ENCOUNTER → 2024-10-07 08:24 | Outpatient (BNVA) | payer OTHER, SELFPAY | PROVIDERS: PCP Internal Medicine; Visit Provider Nurse Practitioner Family | DX: I35.0 Nonrheumatic aortic (valve) stenosis (principal); I10 Essential (primary) hypertension; E78.00 Pure hypercholesterolemia, unspecified; E11.65 Type 2 diabetes mellitus with hyperglycemia; F17.210 Nicotine dependence, cigarettes, uncomplicated; Z79.4 Long term (current) use of insulin | CPT/HCPCS: 93005; 99212 ==

== ENCOUNTER 2024-11-13 07:24 | Outpatient (REF) | payer OTHER, SELFPAY ==
--- OUTSIDE RECORDS SUMMARY | 2024-11-13 07:27 | XMS_ITS | Encounter Summary ---
Author Organization [facility] Address [address] [facility] [address] [place] [address] Phone Care Team Providers Care Advertising Layout Worker Name Role Phone Sheba Greco MD Primary Care Provider [phone] Encounter Details Date Type Department Care Team (Late st Contact Info) Description 02/20/2024 Office Communication [facility] [address] [facility] [address] [place] [address] Kurt Carbajal MD [id number] [facility] [address] [place] [address] Social History Tobacco Use Types Packs/Day Years Used Date Smoking Tobacco: Every Day Cigarettes 0.5 6.7 Started: 03/16/2018 Smokeless Tobacco: Never Alcohol Use Standard Drinks/Week Comments Yes 0 (1 standard drink = 0.6 oz pure alcohol) Alcoholic Drinks/day: Occasional social drink Sex and Gender Information Value Date Recorded Sex Assigned at Not on file Legal Sex Male 4:47 PM EST Gender Identity Not on file Sexual Orientation Not on file documented as of this encounter Miscellaneous Notes * Telephone Encounter - Shantelle Murray - 03/14/2024 2:31 PM EDT Patient is calling for his lab results * Telephone Encounter - Kurt Carbajal MD - 02/20/2024 11:15 AM EDT Make sure he stops the lisinopril and takes the kayexlate and sodium bicarbonate and gets repeat labs on -- documented in this encounter Plan of Treatment Upcoming Encounters Date Type Department Care Team (Late st Contact Info) Description 03/24/2025 1:30 PM EDT Office Visit [facility] [address] [place] [address] Kurt Carbajal MD [address] [facility] [address] [place] [address] documented as of this encounter Visit Diagnoses Not on filedocumented in this encounter Care Teams Advertising Layout Worker Relationship Specialty Start Date End Date Sheba Greco MD [address] [place], [place] PCP - General 10/12/20 documented as of this encounter
--- OUTSIDE RECORDS SUMMARY | 2024-11-13 07:27 | XMS_ITS | Clinical Summary ---
Author Organization [facility] Address [address] [place] [address] Phone Care Team Providers Care Floor Covering Printer Name Role Phone Sheba Greco MD Primary Care Provider [phone] Allergies Active Allergy Reactions Criticality Noted Date Comments Cephalosporins 09/04/2012 Doxycycline 09/04/2012 Insulin Degludec Other (see comments) Levofloxacin In D5w 09/04/2012 Morphine Other (see comments) 11/09/2020 Nsaids 09/04/2012 Lisinopril-Hydrochlorothiazide Other (see comments) 09/22/2016 Medications aspirin (ST HORACIO) 81 MG EC tabletIndicati ons:Stage 3b chronic kidney disease (HCC) Take 1 tablet by mouth 1 (one) time each day Active cyclobenzaprin e (FLEXERIL) 10 MG tabletIndicati ons:Stage 3b chronic kidney disease (HCC) Take 1 tablet by mouth 1 (one) time each day Active dilTIAZem CD (CARDIZEM CD) 300 MG 24 hr capsuleIndicat ions:Stage 3b chronic kidney disease (HCC) Take 1 capsule by mouth 1 (one) time each day Active ferrous sulfate 325 (65 Fe) MG tabletIndicati ons:Stage 3b chronic kidney disease (HCC) Comments: Filled Date: Oct 06 2019 7:58PM Patient Notes: TAKE 1 TABLET BY MOUTH ONCE A DAY Duration: 90 020 Active fluticasone (FLONASE) 50 MCG/ACT nasal sprayIndicatio ns:Stage 3b chronic kidney disease (HCC) Administer 1 spray into each nostril 2 (two) times a day Active ipratropium-al buterol (Combivent Respimat) 20-100 MCG/ACT inhalerIndicat ions:Stage 3b chronic kidney disease (HCC) Active ipratropium-al buterol (DUO-NEB) 0.5-2.5 mg/3 mL nebulizer solutionIndica tions:Stage 3b chronic kidney disease (HCC) as directed Acti ve Melatonin 5 MG capsuleIndicat ions:Stage 3b chronic kidney disease (HCC) as needed Active tamsulosin (FLOMAX) 0.4 MG 24 hr capsuleIndicat ions:Stage 3b chronic kidney disease (HCC) Take 1 capsule by mouth at bed time Active cholecalcifero l (VITAMIN D-3) 50 MCG (1999 UT) capsule vitamin d 2000 unit caps Active triamcinolone (KENALOG) 0.1 % cream triamcinolone acetonide 0.1 % crea Active omeprazole (PriLOSEC) [address] capsule omeprazole 20 mg cpdr Active mupirocin (BACTROBAN) 2 % ointment mupirocin 2 % oint Active montelukast (SINGULAIR) 10 MG tablet montelukast sodium 10 mg tabs Active lisinopril (PRINIVIL,ZEST RIL) 20 MG tablet lisinopril 20 mg tabs Active sulfamethoxazo le-trimethopri m (BACTRIM DS,SEPTRA DS) 800-160 MG per tablet sulfamethoxazole 800 mg-trimethoprim 160 mg tablet Active ofloxacin (FLOXIN) 0.3 % otic solution ofloxacin 0.3 % ear drops Active meclizine (ANTIVERT) 25 MG tablet meclizine 25 mg tablet Active linaGLIPtin (Tradjenta) 5 MG tablet Tradjenta 5 mg tablet TOME SEBASTIAN TABLETA TODOS LOS D Active Influenza Vac High-Dose Quad (Fluzone High-Dose Quadrivalent) 0.7 ML suspension prefilled syringe Fluzone High-Dose Quad 2019- (PF) 240 mcg/0.7 mL IM syringe Active halobetasol (ULTRAVATE) 0.05 % cream halobetasol propionate 0.05 % topical cream PLEASE SEE ATTACHED FOR DETAILED DIRECTIONS Active gabapentin (NEURONTIN) 300 MG capsule gabapentin 300 mg capsule TOME 1 C PSULA POR V A ORAL TODOS LOS D Active Empagliflozin (Jardiance) 25 MG tablet Jardiance 25 mg tablet TOME SEBASTIAN TABLETA POR V A ORAL TODOS LOS D EN LA MA SHEBA Active clobetasol (TEMOVATE) 0.05 % ointment clobetasol 0.05 % topical ointment APLIQUE AL MULUGETA AFECTADA DOS VECES AL D A Active ciprofloxacin- dexamethasone (CIPRODEX) otic suspension INSTILL 4 DROPS INTO THE AFFECTED EAR(S) TWICE A DAY FOR 7 DAYS Active cetirizine (ZyrTEC) 10 MG tablet cetirizine 10 mg tablet Active betamethasone, augmented, (DIPROLENE) 0.05 % ointment betamethasone, augmented 0.05 % topical ointment Active alclomethasone (ACLOVATE) 0.05 % cream alclometasone 0.05 % topical cream APPLY TO AREAS ON FACE TWICE DAILY FOR UP TO TWO WEEKS ON, TAKE ONE WEEK BREAK. REPEAT NEEDED. Active amoxicillin (AMOXIL) 500 MG capsule TOME 1 C PSULA CADA DOCE HORAS FOR 10 DAYS Active hydrOXYzine (ATARAX) 25 MG tablet hydroxyzine hcl 25 mg tabs Active albuterol HFA (PROVENTIL HFA;VENTOLIN HFA) 108 (90 Base) MCG/ACT inhaler Inhale Active pioglitazone (ACTOS) 15 MG tablet Take by mouth Active Otezla 10 & 20 & 30 MG tablet therapy pack Active GLYBURIDE PO Active fluticasone-sa lmeterol (ADVAIR DISKUS) 100-50 MCG/DOSE diskus inhaler Inhale Activ e doxycycline (VIBRAMYCIN) 100 MG capsule doxycycline hyclate 100 mg capsule TOME 1 C PSULA POR V A ORAL DOS VECES AL D A POR 7 D Active fluconazole (DIFLUCAN) 200 MG tablet fluconazole 200 mg tablet TOME SEBASTIAN TABLETA TODOS LOS D Active fluocinonide (LIDEX) 0.05 % ointment fluocinonide 0.05 % topical ointment APPLY TWICE DAILY TO HANDS AND FEET OR NEEDED. Active hydrocortisone 1 % cream hydrocortisone 1 % topical cream with perineal applicator APPLY TO AFFECTED AREA TWICE A DAY FOR 1 WEEK NEEDED FOR ITCHING Active Lantus SoloStar 100 UNIT/ML injection Active naproxen (NAPROSYN) 500 MG tablet naproxen 500 mg tablet TOME SEBASTIAN TABLETA DOS VECES AL D A Active clotrimazole-b etamethasone (LOTRISONE) cream Apply 0.05 application topically twice a day 022 Active amLODIPine (NORVASC) 2.5 MG tablet TOME SEBASTIAN TABLETA TODOS LOS MOLINA 90 tablet 1 022 Active atorvastatin (LIPITOR) 10 MG tablet Take 10 mg by mouth 1 (one) time each day Active sodium polystyrene sulfonate (KAYEXALATE) powderIndicati ons:Stage 3b chronic kidney disease (HCC) DISSOLVE 2 TABLESPOONFULS IN WATER AND DRINK TWICE A WEEK NEEDED 454 g 3 023 Active cephalexin (KEFLEX) 500 MG capsule TOME 1 C PSULA POR V A ORAL CADA 6 HORAS POR 7 D 024 Active predniSONE (DELTASONE) 20 MG tablet TAKE 3 TABLETS FOR 5 DAYS THEN 2 TABLETS FOR 4 DAYS THEN 1 TABLET FOR 3 DAYS 024 Active zolpidem (AMBIEN) 5 MG tablet TOME SEBASTIAN TABLETA POR V A ORAL AL ACOSTARSE CUANDO SEA NECESARIO PARA DORMIR Active sodium bicarbonate 650 MG tablet TOME SEBASTIAN TABLETA (650 MG TOTAL) POR VIA ORAL EN LA MANANA EN LA NOCHE AND AL ACOSTARSE 270 tablet 025 2024 Active sodium bicarbonate 650 MG tablet TOME SEBASTIAN TABLETA (650 MG TOTAL) POR VIA ORAL EN LA MANANA EN LA NOCHE AND AL ACOSTARSE 270 tablet 024 2024 Discontinued Active Problems Problem Noted Date Diagnosed Date Metabolic acidosis 03/11/2024 Stage 3a chronic kidney disease 08/01/2023 Type 2 diabetes mellitus wit h diabetic chronic kidney disease 08/01/2023 Renal osteodystrophy 08/01/2023 Anemia 11/09/2020 Asthma 11/09/2020 Stage 3b chronic kidney disease 11/09/2020 Chronic obstructive pulmonary disease 11/09/2020 Essential hypertension 11/09/2020 Hypercholesterolemia 11/09/2020 Hyperkalemia 11/09/2020 Sciatica 11/09/2020 Diabetes mellitus 11/09/2020 Onychomycosis 01/19/2017 Type 2 diabetes mellitus 10/20/2016 Pain in toe 10/20/2016 Psoriasis 09/04/2012 Tobacco user 09/04/2012 Encounters Date Type Department Care Team Description 11/03/2024 Refill [facility] [address] [facility] [address] [place] [phone] Kurt Carbajal MD from Last 3 Months Immunizations Name Administration Dates Next Due Influenza Split High Dose Preservative Free IM 0 05/21/2020 Influenza, Quadrivalent, With Preservative 06/29 Family History Medical History Relation Comments Diabetes Mother Heart disease Sibling 1 brother Hypertension Sibling 2 brother Diabetes Sibling 3 brother & sister Relation Status Comments Father Unknown Mother Unknown Sibling 1 Sibling 2 Sibling 3 Social History Tobacco Use Types Packs/Day Years Used Date Smoking Tobacco: Every Day Cigarettes 0.5 6.7 Started: 03/16/2018 Smokeless Tobacco: Never Tobacco Cessation:Ready to Q uit: Not Asked; Counseling Given: Not Answered Alcohol Use Standard Drinks/Week Comments Yes 0 (1 standard drink = 0.6 oz pure alcohol) Alcoholic Drinks/day: Occasional social drink Sex and Gender Information Value Date Recorded Sex Assigned at Not on file Legal Sex Male 4:47 PM EST Gender Identity Not on file Sexual Orientation Not on file Last Filed Vital Signs Vital Sign Reading Time Taken Comments Blood Pressure 139/60 06/24/2024 1:14 PM EDT Pulse 74 06/24/2024 1:14 PM EDT Temperature - - Respiratory Rate - - Oxygen Saturation 98% 06/24/2024 1:14 PM EDT Inhaled Oxygen Concentration - - Weight 74.7 kg (164 lb 9.6 oz) 06/24/2024 1:14 PM EDT Height 170.2 cm (5' 7 ) 01/16/2023 1:14 PM EDT Body Mass Index 25.78 01/16/2023 1:14 PM EDT Plan of Treatment Upcoming Encounters Date Type Department Care Team (Late st Contact Info) Description 03/24/2025 1:30 PM EDT Office Visit [facility] [address] [place] [phone] Kurt Carbajal MD [address] [facility] [address] [place] [phone] Health Maintenance Due Date Last Done Comments Colorectal Cancer Screening: Annual FOBT 12/09/2000 Colorectal Cancer Screening: Colonoscopy 12/09/2000 Colorectal Cancer Screening: Sigmoidoscopy 12/09/2000 Diabetes: Ophthalmology Exam 10/30/2020 Diabetes: Pedal Pulse Checked 10/30/2020 Diabetes: Sensory Foot Exam 10/30/2020 Diabetes: Visual Foot Exam 10/30/2020 Diabetes: Hemoglobin A1C 12/06/2020 09/07/2020 Influenza Vaccine (#1) 2024 , 05/21/2020, 06/22/2019, Additional history exists Pneumococcal Vaccine: 65+ Years Completed 12/14/2023, 06/29/2016, 07/02/1997 Hepatitis B Vaccine Aged Out No longe r eligible based on patient's age to complete this topic Procedures Procedure Name Priority Date/Time Associated Diagnosis Comments BLOOD PANEL (HC) Routine 09/07/2020 12:0 0 AM EST from Last 3 Months or Most Recently Relevant to Health Maintenance Results * (ABNORMAL) Blood Panel (09/07/2020 12:00 AM EST) BUN 23(H) 9 - 20 mg/dl [facility] Potassium 5.1 3.5 - 5.1 mmol/L [facility] Hematocrit 41.8 38 - 50 % [facility] Sodium 137 137 - 145 mmol/L [facility] Calcium 9.6 8.4 - 10.2 mg/dl [facility] Phosphorus, Serum 4.0 2.5 - 4.5 mg/dl [facility] Creatinine 1.42(H) 0.70 - 1.30 mg/dl [facility] eGFR Non- 50(L) >60 ml/min [facility] Hgb 13.6 13.0 - 16.5 g/dl [facility] Hemoglobin A1C 7.4(H) <5 % [facility] 09/07/2020 us [facility]version [facility] [id number] LICITED RESULTS Final Result [facility] from Last 3 Months or Most Recently Relevant to Health Maintenance Insurance [facility] DUAL COMPLETE ([id number]) [place] [facility] DUAL COMPLETE ([id number]) Care Teams Floor Covering Printer Relationship Specialty Start Date End Date Sheba Greco MD [address] [place], [place] PCP - General 10/12/20
--- OUTSIDE RECORDS SUMMARY | 2024-11-13 07:27 | XMS_ITS | Encounter Summary ---
Author Organization [facility] Address [address] [facility] [address] [place] [address] Phone Care Team Providers Care Circle Cutting Saw Operator Name Role Phone Sheba Greco MD Primary Care Provider [phone] Encounter Details Date Type Department Care Team (Late Contact Info) Description 04/24/2024 Office Communication [facility] [address] [facility] [address] [place] [address] Kurt Carbajal MD [address] [address] Social History Tobacco Use Types Packs/Day [...] on file documented as of this encounter Plan of Treatment Upcoming Encounters Date Type Department Care Team (Late st Contact Info) Description 03/24/2025 1:30 PM EDT Office Visit [facility] [address] [place] [phone] Kurt Carbajal MD [address] [facility] [address] [place] [address] documented as of this encounter Visit Diagnoses Not on filedocumented in this encounter Care Teams Circle Cutting Saw Operator Relationship Specialty Start Date End Date Sheba Greco MD [address] [place] PCP - General 10/12/20 documented as of this encounter
--- OUTSIDE RECORDS SUMMARY | 2024-11-13 07:27 | XMS_ITS | Patient Health Record ---
Author Organization [facility] Address [address] [place] [address] Care Team Providers Care Cvt Tech Name Role Phone Sheba Greco Primary Care Provider Wil Sebastian Unavailable [phone] ALLERGIES Allergen (clinical drug ingredient) Drug/Non Drug Allergy documented on EMR Reaction Allergy Type Onset Date Status morphine Morphine Sulfate Unknown Drug Allergy Active REASON FOR REFERRAL No Information MEDICATIONS Medication SIG (Take, Route, Frequency, Duration) Notes Start Date End Date Status traMADol HCl 50mg Ac tive Actos 30mg Not-Takin g Aspir-81 81mg Active Advair Diskus 250mcg Active Folic Acid 1mg Activ e Cartia XT 300mg Acti ve Lantus SoloStar 100 UNIT/ML Subcutaneous for 60 Active Pramipexole Dihydrochloride 0.125 MG TOME SEBASTIAN TABLETA POR V A ORAL AL ACOSTARSE Oral for 90 Active Ipratropium-Albuterol 0.5-2.5 (3) MG/3ML Inhalation for 30 Acti ve Glucophage 1000mg No t-Taking Triamcinolone & Emollient 0.1% Active FreeStyle Lancets Ac tive PriLOSEC OTC Not-Bennett ing metFORMIN HCl 1000mg Not-Taking Tradjenta 5 MG Oral for 30 Act nohemy Suprep Bowel Prep 1 kit as directed Oral ly as directed for 1 dose 03/29/2012 Active Otezla 30 MG Oral for 30 Not-T aking Jardiance 25 MG Oral for 30 No t-Taking Insulin Syringe 30gauge Active hydrOXYzine HCl 25mg Active Lisinopril 5mg Activ e Lantus 100unit Activ e ProAir HFA 90mcg Act nohemy Pain Relief 500mg Ac tive Singulair 10mg Activ e Ranitidine HCl 150mg Active glyBURIDE 5mg Not-Ta kayla IMMUNIZATIONS Vaccine Route Administration Date Status Comme nts Influenza Unknown 06/02/2022 Administered SOCIAL HISTORY Sex Assigned At : Social History Observation Description Sex Assigned At Unknown PROBLEMS Problem Type ICD Code Onset Dates Problem Status W/U Status Risk SNOMED Code Notes Problem Colon cancer screening (Z12.11) Active confirmed Colon can cer screening (968058608) Problem Diverticulosis of large intestine without perforation or abscess without bleeding (K57.30) Active confirmed Diverticul ar disease of colon (737552903) Problem Gastroesophageal reflux disease without esophagitis (K21.9) Active confirmed 136640833 Problem History of White's esophagus (Z87.19) Active confirmed [id number] PLAN OF TREATMENT Future Test Test Name Order Date UPPER GI ENDOSCOPY 03/29/2012 COLONOSCOPY 03/29/2012 COLONOSCOPY 09/21/2022 Insurance Providers Payer Name Payer Address Payer Phone Subscriber Number Group Number Insured Name Patient Relationship to Insured Coverage Start Date Coverage End Date [facility] [address] [address] [place] [address] [id number] [employer] Self - patient is the insured MEDICAL (GENERAL) HISTORY Medical History History ICD Code IDDM HTN White's esophagus(small area) seen on an EGD prior to 2011 GERD--EGD was negative for esophagitis a nd White's in 2011 Denies HI,CVA, and renal disease Cardiac catheterizations-? results Negative screening colonoscopy in 2011 Asthma Surgical History Surgery Date(Month/Year) cholecystectomy penile prosthesis-01/2012
--- OUTSIDE RECORDS SUMMARY | 2024-11-13 07:27 | XMS_ITS | Encounter Summary ---
Author Organization [facility] Address [address] [facility] [address] [place] [address] Phone Care Team Providers Care Meat Carrier Name Role Phone Sheba Greco MD Primary Care Provider [phone] Reason for Visit * Reason Comments Med Refill Encounter Details Date Type Department Care Team (Late Contact Info) Description 11/03/2024 Refill [facility] [address] [facility] [address] [place] [address] Kurt Carbajal MD [address] [address] Social History Tobacco Use Types [...] Visit [facility] [address] [place] [address] Kurt Carbajal MD [address] [address] documented as of this encounter Visit Diagnoses Not on filedocumented in this encounter Care Teams Meat Carrier Relationship Specialty Start Date End Date Sheba Greco MD [address] [place], [place] PCP - General 10/12/20 documented as of this encounter
--- OUTSIDE RECORDS SUMMARY | 2024-11-13 07:27 | XMS_ITS | Clinical Summary ---
Author Organization [facility] Address [address] [place] [address] [address] [place] [address] Care Team Providers Care Heel Nailing Machine Operator Name Role Phone Unavailable Primary Care Provider Unavailabl e Immunizations Name Administration Dates Next Due Influenza High-dose Quadriva lent Preservative Free 07/05/2023,06/28/2022 Influenza Quadrivalent Adjuvanted 06/05/2021 Influenza injectable quadriv alent IIV4 with preservative 07/14/2016,06/29/2016,07/22/2015 Influenza, High Dose Seasona l, Preservative Free 05/21/2020,06/22/2019,06/28/2017 Influenza, IIV3, injectable 07/07/2014, 1 Influenza, Split (incl. edwige fied surface antigen) 07/19/2013 Influenza, trivalent, adjuvanted 06/28/2018 Pneumococcal Conjugate PCV 13 06/29/2016 Pneumococcal Conjugate PCV 20 12/14/2023 Pneumococcal Polysaccharide PPSV23 07/02/1997 RSV Bivalent 12/14/2023 TD (adult), 2 Lf tetanus tox oid, preservative free, adsorbed 03/28/2012 Tdap 06/28/2017 Zoster, Recombinant 01/29/2018 Zoster, live 10/18/2016 Social History Tobacco Use Types Packs/Day Years Used Date Smoking Tobacco: Never Assessed Sex and Gender Information Value Date Recorded Sex Assigned at Male 08/01/2022 10:14 AM EDT Legal Sex Male 10:14 AM EDT Gender Identity Male 08/01/2022 10:14 AM EDT Sexual Orientation Straight 08/01/2022 10 :14 AM EDT Plan of Treatment Health Maintenance Due Date Last Done Comments CT Colonography 1951 Colonoscopy 1951 Colorectal Cancer Screening 1951 Depression Screening 1950 FIT DNA/Cologuard 1951 FIT 1951 FOBT 1950 Lipid Panel 1950 Sigmoidoscopy 1951 Alcohol/Substance Use Screening 1963 Tobacco Screening 1962 Zoster Vaccines (3 of 3) 03/26/2018 01/29/2018, 10/02 COVID-19 Vaccine (3 - season) 2024 09/07/2021, 01/06/2021 Influenza Vaccine (#1) 2024 3, 06/28/2022, 06/02/2022, Additional history exists DTaP/Tdap/Td Vaccines (2 - Td or Tdap) 06/28/2027 06/28/2017, 03/28/2012 Pneumococcal Vaccine: 50+ Years Completed 12/14/2023, 06/29/2016, 07/02/1997 RSV Patients and Patients Aged 60 years or older Completed 12/14/2023 HIB Vaccines Aged Out No longer eligi ble based on patient's age to complete this topic HPV Vaccines Aged Out No longer eligi ble based on patient's age to complete this topic Hepatitis A Vaccines Aged Out No long er eligible based on patient's age to complete this topic Hepatitis B Vaccines Aged Out No long er eligible based on patient's age to complete this topic IPV Vaccines Aged Out No longer eligi ble based on patient's age to complete this topic Meningococcal Vaccine Aged Out No husam gee eligible based on patient's age to complete this topic RSV under 20 months Aged Out No longe r eligible based on patient's age to complete this topic Rotavirus Vaccines Aged Out No longer eligible based on patient's age to complete this topic
--- NOTE | 2024-11-13 07:36 | ECG_ITS ---
Test Reason : z01.818 Blood Pressure : */* mmHG Vent. Rate : 77 BPM Atrial Rate : 77 BPM P-R Int : 154 ms QRS Dur : 80 ms QT Int : 372 ms P-R-T Axes : 77 59 81 degrees QTcB Int : 420 ms Normal sinus rhythm Normal ECG When compared with ECG of 04-May-2021 20:42, No significant change was found Referred By: Sheba Corbett Electronically Signed By: CHELSIE NIEVES MD
[2024-11-13 07:48] LABS: MANUAL DIFF FLAG NO
[2024-11-13 08:29] LABS: Basophils Absolute Auto 0.1 X10*3/uL (0.0-0.2); Basophils Percent Auto 0.6 % (0-2); Eosinophils Absolute Auto 1.5 X10*3/uL (0.0-0.4); Eosinophils Percent Auto 16.8 % (0-4); Hematocrit 42.2 % (42.0-52.0); Hemoglobin 13.9 g/dl (14.0-18.0); Imm Gran Abs Auto 0.05 X10*3/uL (0.00-0.03); Imm Gran Pct Auto 0.6 % (0.0-0.4); Lymphocytes Percent Auto 22.2 % (20-40); Mean Corpuscular HGB Conc 32.9 g/dl (31.0-36.0); Mean Corpuscular Hemoglobin 29.4 pg (27.0-33.0); Mean Corpuscular Volume 89.4 fL (80.0-98.0); Monocytes Absolute Auto 0.8 X10*3/uL (0.1-1.2); Monocytes Percent Auto 9.3 % (2-11); Neutrophils Absolute Auto 4.6 x10*3/uL (2.0-8.3); Neutrophils Percent Auto 50.5 % (45-73); Platelet Count 231 X10*3/uL (160-400); Red Blood Count 4.72 X10*6/uL (4.60-5.80); Red Cell Distribution Width 13.3 % (11.0-16.0); White Blood Count 9.1 X10*3/uL (4.8-10.8)
[2024-11-13 09:06] LABS: Alanine Aminotransferase 49 U/L (0-40); Albumin Level 4.2 g/dL (3.5-5.0); Anion Gap 12 (12-20); Aspartate Amino Transferase 39 U/L (5-37); Bilirubin Total 0.5 mg/dL (0.0-1.0); Blood Urea Nitrogen 18 mg/dL (9-16); Calcium 9.5 mg/dL (8.4-10.2); Carbon Dioxide 24 mmol/L (22-29); Chloride 109 mmol/L (96-108); Cholesterol 117 mg/dL (<200); Estimated Glomerular Filt Rate > 60; Glucose Fasting 82 mg/dL (60-99); HDL Cholesterol 62 mg/dL (>40); LDL Cholesterol Calculated 45 mg/dL (<100); Potassium 4.1 mmol/L (3.3-5.1); Sodium 141 mmol/L (135-145); Total Protein 8.2 g/dL (6.5-8.0); Triglycerides 54 mg/dL (<150)
[2024-11-13 09:16] LABS: Alkaline Phosphatase 63 U/L (39-117)
[2024-11-13 09:25] LABS: Vitamin D 25-OH Total 29.6 ng/mL (>30)
[2024-11-13 11:56] LABS: Creatinine Urine 216.19 mg/dL; Microalbum/Creatinine Ratio Ur 172.9 ug/mg cr (<30)
== END 2024-11-13 07:25 | disposition home or self-care (01) ==
LOC: HO.LAB 07:24
PROVIDERS: PCP Internal Medicine; Visit Provider Internal Medicine
DX: Z01.818 Encounter for other preprocedural examination (principal); D64.9 Anemia, unspecified; E55.9 Vitamin D deficiency, unspecified; E78.5 Hyperlipidemia, unspecified; R80.9 Proteinuria, unspecified; E11.65 Type 2 diabetes mellitus with hyperglycemia; Z79.4 Long term (current) use of insulin
CPT/HCPCS: 36415; 80053; 80061; 82043; 82306; 82570; 85025; 93005

== ENCOUNTER → 2024-11-13 07:36 | Outpatient (BNV) | payer OTHER, SELFPAY | PROVIDERS: PCP Internal Medicine; Visit Provider Internal Medicine Cardiovascular Disease | DX: Z01.818 Encounter for other preprocedural examination (principal) | CPT/HCPCS: 93010 ==

== ENCOUNTER 2024-11-19 12:00 | Outpatient (AMB) | payer OTHER, SELFPAY ==
--- NOTE | 2024-11-19 12:18 | MHC.PC.OV ---
Vital Signs 11/19/24 12:21 Height 5 ft 7 in Weight 170 lb BMI 26.6 BP 120/64 Blood Pressure Location Lt brachial Position Sitting Pulse 76 Pulse Source Pulse Oximeter Pulse Oximetry (%) 97 Oxygen Delivery Method Room Air Intake Visit Reasons: Replacement Penile Prosthesis 11/29/ DM Cleat Thrower Required: Yes Cleat Thrower Language: Restaurant Managing Partner Name: Sheba Corbett MD Information Interpreted: non-clinical & clinical Accompanied by: Self / Same As Patient Allergies doxycycline Allergy (Intermediate, Verified 11/19/24 12:56) Itching levofloxacin Allergy (Intermediate, Verified 11/19/24 12:56) Itching metformin Allergy (Intermediate, Verified 11/19/24 12:56) diarrhea morphine [MORPHINE] Allergy (Intermediate, Verified 11/19/24 12:56) ITCHING tetracycline Allergy (Intermediate, Verified 11/19/24 12:56) Itching cefazolin Adverse Reaction (Mild, Verified 11/19/24 12:56) Diarrhea, itchy Medication List - Last Reconciled 11/19/24 by Sheba Corbett MD acetaminophen (Tylenol) 650 mg (2 x 325 mg) PO Q4H PRN albuterol sulfate 2.5 mg (3 mL) inhalation Q6H PRN 30 days amlodipine 5 mg PO DAILY 90 days apremilast (Otezla) 30 mg PO BID aspirin 81 mg PO DAILY atorvastatin 40 mg PO BEDTIME 90 days blood sugar diagnostic (EcoNovaTouch Verio test strips) Use 3 times a day to test BG daily for 30 days cholecalciferol (vitamin D3) 25 mcg PO DAILY 90 days cholestyramine (with sugar) 4 gram 4 grams PO BID 30 days clotrimazole-betamethasone 1-0.05 % 1 appl topical BID [diabetic shoes and inserts As directed] fluticasone propion-salmeterol 500-50 mcg/dose (Wixela Inhub) 1 inh PO BID 90 days gabapentin 600 mg (2 x 300 mg) PO DAILY 90 days insulin glargine (Lantus Solostar U-100 Insulin) 33 units (0.33 mL) subcut QPM 90 days ipratropium-albuterol 0.5 mg-3 mg(2.5 mg base)/3 mL 3 mL inhalation Q6H PRN 30 days ipratropium-albuterol 20-100 mcg/actuation (Combivent Respimat) 1 puff inhalation Q6H PRN 30 days lancets Check by finger stick route 4 times every day lancets (QR WildTouch Safety Lancets) As directed TID linagliptin (Tradjenta) 5 mg PO DAILY nebulizers (AeroEclipse II Nebulizer) As directed nicotine 1 patch transdermal DAILY 28 days omeprazole 20 mg PO BID [onetouch glucometer As directed] pen needle, diabetic (BD Ultra-Fine Short Pen Needle) As directed daily with Lantus pramipexole 0.125 mg PO BEDTIME 90 days sodium polystyrene sulfonate 15 grams PO BID 30 days tamsulosin 0.4 mg PO DAILY triamcinolone acetonide 0.1% 1 appl topical BID 1 week Ventolin HFA 90 mcg/actuation (albuterol sulfate) 2 puffs inhalation Q6H PRN 30 days NS zolpidem 10 mg PO BEDTIME 30 days Tobacco use date assessed: 11/19/24 Fall risk assessment: No Falls in past year Last assessed Fall Risk: 11/19/24 Dental Screening Dental Screen Date: 11/19/24 Did you have a dental visit in the last 12 months?: No Did you have a dental problem in the last 6 months where you did not have access to dental care?: No Was dental information given to patient?: Patient has dentist HPI HPI Comments History of Present Illness Details The patient is a 73-year-old male presenting with concerns regarding a preoperative evaluation and clearance for surgery related to discomfort linked with a penile prosthesis. The patient reports experiencing persistent pain at the site of the prosthesis for the past five months. Associated with the request to address prosthetic discomfort is ongoing hyperglycemia, characterized by frequent blood glucose levels reaching 200 mg/dL. The patient's Hemoglobin A1c is noted to be 8%, indicating poorly controlled diabetes. Historical use of Jardiance resulted in a urinary tract infection, attributed to glucose excretion, and hence discontinuation was advised. Current management includes insulin titrated to manage the diabetes. Additionally, the patient has a documented history of psoriatic arthritis, managed by a aircraft air conditioning mechanic, for which treatment specifics were not noted. Multiple drug allergies include reactions such as pruritus and diarrhea to agents like doxycycline, levofloxacin, morphine, tetracycline, and cefazolin. EKG and labs shows no medical contraindication but his A1c is too elevated and I will have to hold surgery for now up until A1c trends down. He admits not having a diabetic diet. [facility] Medical History Hypertensive retinopathy Nicotine dependence, cigarettes, uncomplicated Tubular adenoma of colon Restless leg syndrome Mild persistent asthma CKD stage 3 due to type 2 diabetes mellitus Diabetes mellitus, with long-term current use of insulin Pure hypercholesterolemia GERD (gastroesophageal reflux disease) Precordial chest pain Essential hypertension Non-rheumatic aortic stenosis Loss of hearing Anemia Asthma Surgical History History of esophagogastroduodenoscopy (EGD) History of colonoscopy History of cholecystectomy History of implantation of penile prosthesis Family History Father No problems noted. Mother No problems noted. Family/Other FH: mental illness Brother In good health Sister In good health Son In good health Daughter In good health Other Mental health disorder Social History Household Members: None Housing: Apartment Do you presently have visiting nurse or other home services: No Alcohol intake: current Alcohol intake frequency: holidays/special occasions only Alcohol type: hard liquor Patient Tobacco Use Status: Current everyday Tobacco user Tobacco use type: Cigarette Cigarettes Per Day: 10 e-Cigarette/Vaping Use: Never Used Second Hand Smoke Exposure: No service: No Current occupational status: disabled Cognitive needs: No Hearing needs: No Vision needs: Yes Questionnaire PHQ-9 Over the last 2 weeks, how often have you been bothered by any of the following problems? 1. Little interest or pleasure in doing things: not at all 2. Feeling down, depressed, or hopeless: not at all 3. Trouble falling or staying asleep, or sleeping too much: not at all 4. Feeling tired or having little energy: not at all 5. Poor appetite or overeating: not at all 6. Feeling bad about yourself - or that you are a failure or have let yourself or your family down: not at all 7. Trouble concentrating on things, such as reading the newspaper or watching television: not at all 8. Moving or speaking so slowly that other people could have noticed. Or the opposite - being so fidgety or restless that you have been moving around a lot more than usual: not at all 9. Thoughts that you would be better off or of hurting yourself in some way: not at all Total score: 0 Depression Screening Interpretation: Negative Depression Screening Done: Yes 91982 - PHQ-9 Billing: Yes Source: Developed by Drs. Wil Cummings, Nataly Summers, Benjy Grimes and colleagues, with an educational champ from [employer]. Thrive Questionnaire Date Thrive assessed: 11/19/24 I am a: Patient What is your living situation today?: I have a steady place to live Within the past 12 months, did the food you bought not last and you didn't have the money to get more?: Never true Within the past 12 months, did you worry whether your food would run out before you got money to buy more?: Never true Do you have trouble paying for medicines?: No Do you have trouble getting transportation to medical appointments?: No Do you have trouble paying your heating and electricity bill?: No Do you have trouble taking care of your child, family member or friend?: No Do you have trouble with day-to-day activities such as bathing, preparing meals, shopping, managing finances, etc.?: No Are you currently unemployed and looking for a job?: No Are you interested in more education?: No Please select the resources that you would like help with: None Currently or been in a relationship where the following occur: No concerns reported THRIVE Score: 0 AUDIT C Alcohol Use Questionnaire (AUDIT-C) 1. How often do you have a drink containing alcohol?: Monthly or less 2. How many drinks containing alcohol do you have on a typical day when you are drinking?: 1 or 2 3. How often do you have six or more drinks on one occasion?: Never Total Score: 1 HENRIETTA-7 AMB Questionnaire HENRIETTA-7 Date HENRIETTA - 7 assessed: 11/19/24 Feeling nervous, anxious, or on edge: 0 = Not at all Not being able to stop or control worryin = Not at all Worrying too much about different things: 0 = Not at all Trouble relaxin = Not at all Being so restless that it is hard to sit still: 0 = Not at all Becoming easily annoyed or irritable: 0 = Not at all Feeling afraid as if something awful might happen: 0 = Not at all Total HENRIETTA-7 score (0-4 normal; 5-9 mild; 10-14 moderate; 15-21 severe): 0 Source: Developed by Drs. Wil Cummings, Nataly Summers, Benjy Grimes and colleagues, with an educational champ from [employer]. HENRIETTA-7 Assessment Billing HENRIETTA-7 Assessment Tool: HENRIETTA-7 Assessment 20679 Review of Systems Const All systems reviewed & are unremarkable except as noted in HPI and below Card Denies chest pain at rest, Denies chest pain with activity, Denies edema, Denies irregular heart rhythm, Denies claudication, Denies dyspnea, Denies dyspnea on exertion, Denies orthopnea, Denies paroxysmal nocturnal dyspnea and Denies slow heart rate Resp Denies cough, Denies dyspnea and Denies dyspnea on exertion GI Denies abdominal pain, Denies change in bowel habits, Denies excessive flatus, Denies nausea and Denies vomiting Denies urinary hesitancy, Denies urinary incontinence and Denies urinary urgency Musc Denies atrophy, Denies deformity and Denies limited range of motion Skin/Breast Denies bleeding lesions, Denies changing lesions and Denies rash Physical exam (Primary Care) Vital Signs: Last Vital Signs Pulse 76 11/19/24 12:21 BP 120/64 11/19/24 12:21 Pulse Ox 97 11/19/24 12:21 Oxygen Delivery Method Room Air 11/19/24 12:21 BMI result Body Mass Index 26.6 Tobacco/Smoking Status: Tobacco use Status Tobacco use date assessed 11/19/24 11/19/24 12:28 Patient Tobacco Use Status Current everyday Tobacco 11/19/24 12:28 Tobacco use type Cigarette 11/19/24 12:28 e-Cigarette/Vaping Use Never Used 11/19/24 12:28 PHQ-9: PHQ-9 Score PHQ-9: Total score 0 11/19/24 12:28 Depression Screening Interpretation: Negative Thrive Assessment: Date of Thrive Assessment Date Thrive assessed 11/19/24 11/19/24 12:28 Currently or been in a relationship where the following occur: No concerns reported Resp Effort & Inspection: normal respiratory effort Auscultation: clear to auscultation bilaterally Cardio Jugular venous distension: no JVD Rate: regular rate Rhythm: regular rhythm Heart sounds: S1 normal heart sound present and S2 normal heart sound present Extrem General: Yes full ROM Results AMB Hemoglobin A1c AMB Hemoglobin A1c 8.0 % Last Edit by BENITA Moncada on 11/19/24 12:51 Results Reviewed Results Reviewed: Laboratory Last Values Hgb A1c (Clinic) 8.0 % (4.0-6.0) H 11/19/24 12:38 Coding Level of Care Code Est Pt Level 4 (23862) Complex EM visit Add On G2211 Diagnoses Pre-op evaluation Z01.818 Essential hypertension I10 Type 2 diabetes mellitus with hyperglycemia, with long-term current use of insulin E11.65; Z79.4 Diabetes mellitus type: type 2 Diabetes mellitus complication status: with hyperglycemia Pure hypercholesterolemia E78.00 Gastroesophageal reflux disease, unspecified whether esophagitis present K21.9 Esophagitis presence: esophagitis presence not specified Psoriatic arthritis L40.50 Additional Codes PHQ-9 - 39780 - PHQ-9 Billing: Yes ([id number]) HENRIETTA-7 Assessment Billing - HENRIETTA-7 Assessment Tool: HENRIETTA-7 Assessment 19545 ([id number]) Time Spent (min) 24 Assessment & Plan Assessment & Plan (1) Pre-op evaluation: Code(s): Z01.818 - Encounter for other preprocedural examination Category: Medical (2) Essential hypertension: Code(s): I10 - Essential (primary) hypertension Category: Medical (3) Diabetes mellitus, with long-term current use of insulin: Code(s): E11.9 - Type 2 diabetes mellitus without complications; Z79.4 - skilled nursing (current) use of insulin Category: Medical Qualifiers: Diabetes mellitus type: type 2 Diabetes mellitus complication status: with hyperglycemia Qualified Code(s): E11.65 - Type 2 diabetes mellitus with hyperglycemia; Z79.4 - marine oil terminal superintendent (current) use of insulin (4) Pure hypercholesterolemia: Code(s): E78.00 - Pure hypercholesterolemia, unspecified Category: Medical (5) GERD (gastroesophageal reflux disease): Code(s): K21.9 - Gastro-esophageal reflux disease without esophagitis Category: Medical Qualifiers: Esophagitis presence: esophagitis presence not specified Qualified Code(s): K21.9 - Gastro-esophageal reflux disease without esophagitis (6) Psoriatic arthritis: Code(s): L40.50 - Arthropathic psoriasis, unspecified Category: Medical Plan - Focus on achieving tighter glycemic control with current medications prior to any surgical clearance. - Discussion of strict dietary modifications to minimize the high sugar intake, particularly avoiding prepared sweets. - A repeat set of laboratory tests is scheduled for six weeks to reassess glycemic control prior to any further preoperative assessments. - As psoriatic arthritis is under rheumatological care, continue to coordinate with rheumatology. - All previous allergies will be documented and medicated alternatives considered if necessary. - Due to the elevated A1c, deferred surgical clearance pending improvement in blood glucose control and lab reassessment. Patient was informed and verbally consented to the use of an ambient scribe for clinic note documentation during this visit. The patient was informed that clearance for prosthesis-related surgery cannot be provided at this time due to poor glycemic control, indicated by an A1c of 8%. The potential for severe complications, including infection post-surgery, was discussed. Management of diabetes, including dietary adjustments and potential medication adjustments, was emphasized to lower the A1c to an acceptable level for surgery. The risks and benefits of delaying surgery were reviewed, and the patient was counseled on the importance of optimizing diabetes to reduce perioperative risks. The decision to reevaluate in six weeks with repeated labs was agreed upon, and the necessity for avoidance of sugary foods was underscored. Future primary care and specialist coordination were advised for comprehensive disease management. Orders: Orders Hemoglobin A1c 6 Weeks E11.9 - Type 2 diabetes mellitus without complications AMB Hemoglobin A1c Today E11.65 - Type 2 diabetes mellitus with hyperglycemia, Z79.4 - marine oil terminal superintendent (current) use of insulin Comprehensive [place]. Panel Fast 6 Weeks E11.65 - Type 2 diabetes mellitus with hyperglycemia, Z79.4 - marine oil terminal superintendent (current) use of insulin Referrals Endocrinology Referral E11.65 - Type 2 diabetes mellitus with hyperglycemia, Z79.4 - marine oil terminal superintendent (current) use of insulin Medications: New empagliflozin (Jardiance) 10 mg PO DAILY 90 days 90 tabs 0RF Refilled zolpidem 10 mg PO BEDTIME 30 days 30 tabs 0RF blood sugar diagnostic (EcoNovaTouch Verio test strips) Use 3 times a day to test BG daily for 30 days 100 ea 11RF E11.9 - Type 2 diabetes mellitus without complications nicotine 1 patch transdermal DAILY 28 days 28 ea 0RF lancets (Best Doctors Safety Lancets) As directed TID 100 ea 10RF E11.65 - Type 2 diabetes mellitus with hyperglycemia, Z79.4 - marine oil terminal superintendent (current) use of insulin Patient Instructions: - Continue current diabetes medications and titrate as discussed. - Follow a diabetic-friendly diet, minimizing the consumption of sugary foods and treats. - Adhere to medication regimens for psoriatic arthritis as instructed by your aircraft air conditioning mechanic. - Return for repeat laboratory tests in six weeks for diabetic status reassessment. - Monitor blood glucose levels regularly and report any concerning changes. - Avoid medications previously noted to cause adverse reactions.
[2024-11-19 12:21] VITALS: BP 120/64; PULSE 76; O2SAT 97; BMI 26.6
--- OUTSIDE RECORDS SUMMARY | 2024-11-19 13:07 | XMS_ITS | Clinical Summary ---
Author Organization [employer] Address [address] [place] [address] [address] [place] [address] Care Team Providers Care Chairman And Chief Executive Officer Name Role Phone Unavailable Primary Care Provider [...]
--- OUTSIDE RECORDS SUMMARY | 2024-11-19 13:07 | XMS_ITS | Encounter Summary ---
Author Organization [facility] Address [address] [facility] [address] [place] [address] Phone Care Team Providers Care Research Physician Name Role Phone Sheba Greco MD Primary Care Provider [phone] Encounter Details Date Type Department Care Team (Late st Contact Info) Description 02/20/2024 Office Communication [facility] [address] [facility] [address] [place] [address] Kurt Carbajal MD [address] [facility] [address] [place] [address] Social History Tobacco Use Types [...] Visit [facility] [address] [place] [address] Kurt Carbajal MD [address] [facility] [address] [place] [address] documented as of this encounter Visit Diagnoses Not on filedocumented in this encounter Care Teams Research Physician Relationship Specialty Start Date End Date Sheba Greco MD [address] [place], [place] PCP - General 10/12/20 documented as of this encounter
--- OUTSIDE RECORDS SUMMARY | 2024-11-19 13:07 | XMS_ITS | Encounter Summary ---
Author Organization [facility] Address [address] [facility] [address] [place] [address] Phone Care Team Providers Care Merchandise Processor Name Role Phone Sheba Greco MD Primary Care Provider [phone] Reason for Visit * Reason Comments Med Refill Encounter Details Date Type Department Care Team (Late Contact Info) Description 11/03/2024 Refill [facility] [address] [facility] [address] [place] [address] Kurt Carbajal MD [address] [address] Social History Tobacco Use Types [...] Visit [facility] [address] [place] [address] Kurt Carbajal MD [address] [address] documented as of this encounter Visit Diagnoses Not on filedocumented in this encounter Care Teams Merchandise Processor Relationship Specialty Start Date End Date Sheba Greco MD [address] [place], [place] PCP - General 10/12/20 documented as of this encounter
--- OUTSIDE RECORDS SUMMARY | 2024-11-19 13:07 | XMS_ITS | Encounter Summary ---
Author Organization [facility] Address [address] [facility] [address] [place] [address] Phone Care Team Providers Care Neighborhood Planner Name Role Phone Sheba Greco MD Primary Care Provider [phone] Encounter Details Date Type Department Care Team (Late Contact Info) Description 04/24/2024 Office Communication [facility] [address] [facility] [address] [place] [address] Kurt Carbajal MD [address] [address] Social History Tobacco Use Types [...] Visit [facility] [address] [place] [address] [place] [address] Kurt Carbajal MD [address] [facility] [address] [place] [address] documented as of this encounter Visit Diagnoses Not on filedocumented in this encounter Care Teams Neighborhood Planner Relationship Specialty Start Date End Date Sheba Greco MD [address] [place] PCP - General 10/12/20 documented as of this encounter
--- OUTSIDE RECORDS SUMMARY | 2024-11-19 13:07 | XMS_ITS | Clinical Summary ---
Author Organization [facility] Address [address] [place] [address] [place] [address] Phone Care Team Providers Care Deputy Clerk Name Role Phone Sheba Greco MD Primary Care Provider [phone] Allergies Active Allergy Reactions Criticality Noted Date [...] [facility] [address] [facility] [address] [place] [address] Kurt Carbajal MD from Last 3 Months [...] Visit [facility] [address] [place] [address] Kurt Carbajal MD [address] [facility] [address] [place] [address] Health Maintenance Due Date Last Done Comments [...] % PVNMA 09/07/2020 us [facility] Conversion LAB [id number] LICITED RESULTS Final Result PVNMA from Last 3 Months or Most Recently Relevant to Health Maintenance Insurance [facility] DUAL COMPLETE ([id number]) [place] [facility] D[place] COMPLETE ([id number]) Care Teams Deputy Clerk Relationship Specialty Start Date End Date Sheba Greco MD [address] [place], [place] PCP - General 10/12/20
--- OUTSIDE RECORDS SUMMARY | 2024-11-19 13:07 | XMS_ITS | Patient Health Record ---
Author Organization [facility] Address [address] [place] [address] Care Team Providers Care Drafter Detail Name Role Phone Sheba Greco Primary Care Provider Wil Sebastian Unavailable [phone] ALLERGIES Allergen (clinical drug ingredient) Drug/Non Drug [...] (Z12.11) Active confirmed Colon can cer screening ([id number]) Problem Diverticulosis of large intestine without perforation or abscess without bleeding (K57.30) Active confirmed Diverticul ar disease of colon (590020858) Problem Gastroesophageal reflux disease without esophagitis (K21.9) Active confirmed [id number] Problem History of White's esophagus (Z87.19) Active confirmed [id number] PLAN OF TREATMENT Future Test Test Name Order Date UPPER GI ENDOSCOPY 03/29/2012 COLONOSCOPY 03/29/2012 COLONOSCOPY 09/21/2022 Insurance Providers Payer Name Payer Address Payer Phone Subscriber Number Group Number Insured Name Patient Relationship to Insured Coverage Start Date Coverage End Date [facility] [address] [address] [place] [address] [phone] [id number] [employer]IGN [employer] Self - patient is the insured MEDICAL (GENERAL) HISTORY Medical History History ICD Code IDDM HTN White's esophagus(small area) seen on an EGD prior to 2011 GERD--EGD was negative for esophagitis a nd White's in 2011 Denies [place],CVA, and renal disease Cardiac catheterizations-? results Negative screening colonoscopy in 2011 Asthma Surgical History Surgery Date(Month/Year) cholecystectomy penile prosthesis-01/2012
== END 2024-11-19 13:10 | disposition home or self-care (01) ==
PROVIDERS: PCP Internal Medicine; Visit Provider Internal Medicine
DX: Z01.818 Encounter for other preprocedural examination (principal); I10 Essential (primary) hypertension; E11.65 Type 2 diabetes mellitus with hyperglycemia; Z79.4 Long term (current) use of insulin; E78.00 Pure hypercholesterolemia, unspecified; K21.9 Gastro-esophageal reflux disease without esophagitis; L40.50 Arthropathic psoriasis, unspecified

== ENCOUNTER → 2024-11-19 12:00 | Outpatient (BNVA) | payer OTHER, SELFPAY | PROVIDERS: PCP Internal Medicine; Visit Provider Internal Medicine | DX: Z01.818 Encounter for other preprocedural examination (principal); I10 Essential (primary) hypertension; E11.65 Type 2 diabetes mellitus with hyperglycemia; Z79.4 Long term (current) use of insulin; E78.00 Pure hypercholesterolemia, unspecified; K21.9 Gastro-esophageal reflux disease without esophagitis; L40.50 Arthropathic psoriasis, unspecified | CPT/HCPCS: 83036; 96127; 99212 ==

== ENCOUNTER 2024-11-25 12:40 | Outpatient (AMB) | payer OTHER, SELFPAY ==
[2024-11-25 13:01] VITALS: BP 128/64; PULSE 76; O2SAT 96; BMI 26.5
--- NOTE | 2024-11-25 13:01 | MHC.OFFVIS ---
Vital Signs 11/25/24 13:01 Height 5 ft 7 in Weight 169 lb 1.513 oz BMI 26.5 BP 128/64 Blood Pressure Location Lt brachial Position Sitting Pulse 76 Pulse Source Pulse Oximeter Pulse Oximetry (%) 96 Oxygen Delivery Method Room Air Intake Visit Reasons: Type 2 diabetes mellitus with hyperglycemia Intake Note: Patient present today for Type 2 Diabetes Mellitus Last Diabetic eye exam: 10/2024 Last Podiatry Visit: 10/2024 Random Glucose:117 mg/dl HgA1C: 8.0% 11/19/24 Lockstitch Pocket Setter Required: Yes Lockstitch Pocket Setter Language: Development System Efficiency Manager Services: Lockstitch Pocket Setter Present Lockstitch Pocket Setter Name: Cher [id number] Information Interpreted: non-clinical & clinical Accompanied by: Self / Same As Patient Allergies doxycycline Allergy (Intermediate, Verified 11/25/24 13:07) Itching levofloxacin Allergy (Intermediate, Verified 11/25/24 13:07) Itching metformin Allergy (Intermediate, Verified 11/25/24 13:07) diarrhea morphine [MORPHINE] Allergy (Intermediate, Verified 11/25/24 13:07) ITCHING tetracycline Allergy (Intermediate, Verified 11/25/24 13:07) Itching cefazolin Adverse Reaction (Mild, Verified 11/25/24 13:07) Diarrhea, itchy Medication List - Last Reconciled 11/25/24 by Danielle Forte PA-C acetaminophen (Tylenol) 650 mg (2 x 325 mg) PO Q4H PRN albuterol sulfate 2.5 mg (3 mL) inhalation Q6H PRN 30 days amlodipine 5 mg PO DAILY 90 days apremilast (Otezla) 30 mg PO BID aspirin 81 mg PO DAILY atorvastatin 40 mg PO BEDTIME 90 days blood sugar diagnostic (Lovin' SpoonfulsTouch Verio test strips) Use 3 times a day to test BG daily for 30 days cholecalciferol (vitamin D3) 25 mcg PO DAILY 90 days cholestyramine (with sugar) 4 gram 4 grams PO BID 30 days clotrimazole-betamethasone 1-0.05 % 1 appl topical BID [diabetic shoes and inserts As directed] empagliflozin (Jardiance) 10 mg PO DAILY 90 days fluticasone propion-salmeterol 500-50 mcg/dose (Wixela Inhub) 1 inh PO BID 90 days gabapentin 600 mg (2 x 300 mg) PO DAILY 90 days insulin glargine (Lantus Solostar U-100 Insulin) 35 units (0.35 mL) subcut QPM 90 days ipratropium-albuterol 0.5 mg-3 mg(2.5 mg base)/3 mL 3 mL inhalation Q6H PRN 30 days ipratropium-albuterol 20-100 mcg/actuation (Combivent Respimat) 1 puff inhalation Q6H PRN 30 days lancets (Blazeuch Delica Plus Lancet) CHECK BY FINGER STICK ROUTE 4 TIMES EVERY DAY lancets (Rate Solutions Safety Lancets) As directed TID nebulizers (AeroEclipse II Nebulizer) As directed nicotine 1 patch transdermal DAILY 28 days omeprazole 20 mg PO BID [Force Therapeuticsuch glucometer As directed] pen needle, diabetic (BD Ultra-Fine Short Pen Needle) As directed daily with Lantus pramipexole 0.125 mg PO BEDTIME 90 days sodium polystyrene sulfonate 15 grams PO BID 30 days tamsulosin 0.4 mg PO DAILY triamcinolone acetonide 0.1% 1 appl topical BID 1 week Ventolin HFA 90 mcg/actuation (albuterol sulfate) 2 puffs inhalation Q6H PRN 30 days NS zolpidem 10 mg PO BEDTIME 30 days HPI HPI Type 2 diabetes mellitus with hyperglycemia: Details: Patient is a 73-year-old male with a significant past medical history of hypertension, anemia, GERD, hyperlipidemia, aortic stenosis, and type 2 diabetes presenting today for a consultation regarding diabetes. Lockstitch Pocket Setter: Marcie easton and now Lui Joshi [id number] His daughter is also present who helps with translation. Endo: He was diagnosed with diabetes around 1999. His last A1c was 8. He is currently on Lantus 33 units, Tradjenta 5 mg, and [id number] mg -he states that he has been on this regimen for about 10 years in the only recent thing has been Jardiance. He is tolerating the medications well. -Metformin causes GI distress -He has never had a sensor He states that everyone in his family has type 2 diabetes and when he was diagnosed he was confirmed type 2 diabetes. He does not believe he has ever had any formal diabetic Education. He states maybe when he was 1st diagnosed he met with a nurse but he has forgotten a lot of the information. CV: Blood pressure today in the office is 128/64. He is currently on norvasc 5 mg. cholesterol managed with atorvastatin 40 mg. Nephro: Follows with Dr. Carbajal for chronic kidney disease. States that this has been stable. [facility] Medical History (Updated 11/25/24 @ 13:31 by Danielle Forte PA-C) CKD stage 3 due to type 2 diabetes mellitus Hypertensive retinopathy Nicotine dependence, cigarettes, uncomplicated Tubular adenoma of colon Restless leg syndrome Mild persistent asthma Diabetes mellitus, with long-term current use of insulin Pure hypercholesterolemia GERD (gastroesophageal reflux disease) Precordial chest pain Essential hypertension Non-rheumatic aortic stenosis Loss of hearing Anemia Asthma Surgical History History of esophagogastroduodenoscopy (EGD) History of colonoscopy History of cholecystectomy History of implantation of penile prosthesis Family History Father No problems noted. Mother No problems noted. Family/Other FH: mental illness Brother In good health Sister In good health Son In good health Daughter In good health Other Mental health disorder Social History Household Members: None Housing: Apartment Do you presently have visiting nurse or other home services: No Alcohol intake: current Alcohol intake frequency: holidays/special occasions only Alcohol type: hard liquor Patient Tobacco Use Status: Current everyday Tobacco user Tobacco use type: Cigarette Cigarettes Per Day: 10 e-Cigarette/Vaping Use: Never Used Second Hand Smoke Exposure: No service: No Current occupational status: disabled Cognitive needs: No Hearing needs: No Vision needs: Yes Physical Exam Vital Signs: Last Vital Signs Pulse 76 11/25/24 13:01 BP 128/46 L 11/25/24 13:01 Pulse Ox 96 11/25/24 13:01 Oxygen Delivery Method Room Air 11/25/24 13:01 BMI result Body Mass Index 26.5 Const Orientation/consciousness: patient oriented x3 Neck Neck: Yes no lymphadenopathy Thyroid: Thyroid normal Carotids: no bruits Resp Auscultation: clear to auscultation bilaterally Cardio Rate: regular rate Rhythm: regular rhythm Heart sounds: S1 normal heart sound present and S2 normal heart sound present Peripheral pulses: dorsalis pedis present Neuro General: patient oriented x3, gait normal and no focal motor deficits Extrem Other: Monofilament sensation intact bilaterally. Vibratory sensation intact bilaterally. Skin intact. General: Yes normal to inspection Results Reviewed Results Reviewed: Laboratory Tests 11/13/24 11/13/24 11/19/24 07:43 07:44 12:38 Sodium 141 Potassium 4.1 Chloride 109 H Carbon Dioxide 24 Anion Gap 12 BUN 18 H Creatinine 1.06 Estimated GFR > 60 Hgb A1c (Clinic) 8.0 H AST 39 H ALT 49 H Triglycerides 54 Cholesterol 117 LDL Cholesterol, Calc 45 HDL Cholesterol 62 Urine Creatinine 216.19 Urine Microalbumin 374.0 Microalb/Creat Ratio 172.9 H Assessment & Plan Assessment & Plan (1) Uncontrolled type 2 diabetes mellitus with hyperglycemia, with long-term current use of insulin: Code(s): E11.65 - Type 2 diabetes mellitus with hyperglycemia; Z79.4 - nursing home (current) use of insulin Category: Medical Plan: 75 minutes was spent today in [id number] time discussing his diabetes, the differences between type 1 and type 2 diabetes, complications associated with diabetes including blindness, amputation, risk of infections, heart disease, stroke etc.. We reviewed signs and symptoms of hyper and hypoglycemia that would require emergent medical treatment. Rule of 15 were discussed. Glucose tabs order to use if needed. I will discontinue Tradjenta and start Trulicity. Denies any family history of thyroid cancers. We did discuss the risk of nausea, vomiting, pancreatitis, gastroparesis, constipation, diarrhea and worsened retinopathy. States that his last eye exam was in October a normal. States that it had improved. He will make sure he remains up-to-date with eye exams as this can worsen retinopathy. Patient understands this. He will continue with the Jardiance 10 mg. Increase Lantus to 35 units. Dexcom sensor and reader provided today. He does not have a phone that would be compatible with an citlali. I applied this for him and showed him how to use it. He will return in 3-4 weeks or sooner if needed. (2) Essential hypertension: Code(s): I10 - Essential (primary) hypertension Category: Medical Plan: WNL. Continue current regimen (3) Pure hypercholesterolemia: Code(s): E78.00 - Pure hypercholesterolemia, unspecified Category: Medical Plan: We will monitor (4) CKD stage 3 due to type 2 diabetes mellitus: Code(s): E11.22 - Type 2 diabetes mellitus with diabetic chronic kidney disease; N18.30 - Chronic kidney disease, stage 3 unspecified Category: Medical Plan: Avoid NSAIDs. Continue close following with Nephrology. Also advised patient the importance of controlling blood sugars. Medications: New dulaglutide (Trulicity) 0.75 mg (0.5 mL) subcut QWEEK 2 mL 3RF blood-glucose sensor (Dexcom G7 Sensor device) Use daily As directed to monitor glucose. change q 10 days 3 ea 5RF E11.65 - Type 2 diabetes mellitus with hyperglycemia, Z79.4 - nursing home (current) use of insulin glucose (Dex4 Glucose) until symptoms of low blood sugar are controlled 16 grams (4 x 4 gram) PO Q15M PRN 100 tabs 0RF hypoglycemia blood-glucose sensor (Dexcom G7 Sensor device) Use daily As directed to monitor glucose. change q 10 days 3 ea 5RF E11.65 - Type 2 diabetes mellitus with hyperglycemia, Z79.4 - nursing home (current) use of insulin Changed From insulin glargine (Lantus Solostar U-100 Insulin) 33 units (0.33 mL) subcut QPM 90 days 29.7 mL 3RF To insulin glargine (Lantus Solostar U-100 Insulin) 35 units (0.35 mL) subcut QPM 90 days 31.5 mL 3RF Discontinued linagliptin (Tradjenta) Discontinued Reason: Doctor's Order 5 mg PO DAILY 30 tabs 6RF Patient Instructions: stop tradjenta start trulicity 0.75 mg increase lantus to 35 units continue jardiance 10 mg start dexcom Coding Level of Care Code New Pt Level 5 (37453) Diagnoses Uncontrolled type 2 diabetes mellitus with hyperglycemia, with long-term current use of insulin E11.65; Z79.4 Essential hypertension I10 Pure hypercholesterolemia E78.00 CKD stage 3 due to type 2 diabetes mellitus E11.22; N18.30
--- OUTSIDE RECORDS SUMMARY | 2024-11-25 14:22 | XMS_ITS | Encounter Summary ---
Author Organization [facility] Address [address] [facility] 200 [place] [address] Phone Care Team Providers Care Imcu Specialist Name Role Phone Sheba Greco MD Primary Care Provider [phone] Encounter Details Date Type Department Care Team (Late Contact Info) Description 04/24/2024 Office Communication [facility] [address] [facility] [address] [place] [address] Kurt Carbajal MD [address] [address] [address] Social History Tobacco Use Types [...] [facility] [address] [place] [address] [place] [address] Kurt Carbajal MD [address] [facility] [address] [place] [address] documented as of this encounter Visit Diagnoses Not on filedocumented in this encounter Care Teams Imcu Specialist Relationship Specialty Start Date End Date Sheba Greco MD [address] [place] PCP - General 10/12/20 documented as of this encounter
--- OUTSIDE RECORDS SUMMARY | 2024-11-25 14:22 | XMS_ITS | Encounter Summary ---
Author Organization [facility] Address [address] [facility] [address] [facility] 200 [place] [address] Phone Care Team Providers Care Heart Doctor Name Role Phone Sheba Greco MD Primary Care Provider [phone] Encounter Details Date Type Department Care Team (Late st Contact Info) Description 02/20/2024 Office Communication [facility] [address] [facility] [address] [place] [address] Kurt Carbajal MD [address] [facility] [address] [place] [address] Social History Tobacco Use Types [...] Visit [facility] [address] [place] [address] Kurt Carbajal MD [address] [facility] [address] [place] [address] documented as of this encounter Visit Diagnoses Not on filedocumented in this encounter Care Teams Heart Doctor Relationship Specialty Start Date End Date Sheba Greco MD [address] [place], [place] PCP - General 10/12/20 documented as of this encounter
--- OUTSIDE RECORDS SUMMARY | 2024-11-25 14:22 | XMS_ITS | Patient Health Record ---
Author Organization [facility] Address [address] [place] [address] Care Team Providers Care Automotive Internet Sales Manager Name Role Phone Sheba Greco Primary Care Provider Wil Sebastian Unavailable [phone] ALLERGIES Allergen (clinical drug ingredient) Drug/Non Drug [...] (Z12.11) Active confirmed Colon can cer screening (020618183) Problem Diverticulosis of large intestine without perforation or abscess without bleeding (K57.30) Active confirmed Diverticul ar disease of colon (792324820) Problem Gastroesophageal reflux disease without esophagitis (K21.9) Active confirmed 894103146 Problem History of White's esophagus (Z87.19) Active confirmed [id number] PLAN OF TREATMENT Future Test Test Name Order Date UPPER GI ENDOSCOPY 03/29/2012 COLONOSCOPY 03/29/2012 COLONOSCOPY 09/21/2022 Insurance Providers Payer Name Payer Address Payer Phone Subscriber Number Group Number Insured Name Patient Relationship to Insured Coverage Start Date Coverage End Date [facility] [address] [address] [place] [address] [id number] [employer]EIGN [employer] Self - patient is the insured MEDICAL (GENERAL) HISTORY Medical History History ICD Code IDDM HTN White's esophagus(small area) seen on an EGD prior to 2011 GERD--EGD was negative for esophagitis a nd White's in 2011 Denies OR,CVA, and renal disease Cardiac catheterizations-? results Negative screening colonoscopy in 2011 Asthma Surgical History Surgery Date(Month/Year) cholecystectomy penile prosthesis-01/2012
--- OUTSIDE RECORDS SUMMARY | 2024-11-25 14:22 | XMS_ITS | Encounter Summary ---
Author Organization [facility] Address [address] [facility] 200 [place] [address] Phone Care Team Providers Care Car Wiper Name Role Phone Sheba Greco MD Primary Care Provider [phone] Reason for Visit * Reason Comments Med Refill Encounter Details Date Type Department Care Team (Late Contact Info) Description 11/03/2024 Refill [facility] [address] [facility] [address] [place] [address] Kurt Carbajal MD [address] [address] Social History Tobacco Use Types [...] [facility] [address] [place] [address] Kurt Carbajal MD [address] [address] documented as of this encounter Visit Diagnoses Not on filedocumented in this encounter Care Teams Car Wiper Relationship Specialty Start Date End Date Sheba Greco MD [address] [place], [place] PCP - General 10/12/20 documented as of this encounter
--- OUTSIDE RECORDS SUMMARY | 2024-11-25 14:22 | XMS_ITS | Clinical Summary ---
Author Organization [facility] Address [address] [facility] [address] [place] [address] Phone Care Team Providers Care Reinspector Name Role Phone Sheba Greco MD Primary Care Provider [phone] Allergies Active Allergy Reactions Criticality Noted Date [...] [facility] [address] [facility] 200 [place] [address] Kurt Carbajal MD from Last 3 Months [...] Visit [facility] [address] [place] [address] Kurt Carbajal MD [address] [facility] [address] [place] [address] Health Maintenance Due Date Last Done Comments [...] % PVNMA 09/07/2020 us Rtama Conversion LAB [id number] LICITED RESULTS Final Result PVNMA from Last 3 Months or Most Recently Relevant to Health Maintenance Insurance [facility] DUAL COMPLETE ([id number]) [place] [facility] DUAL COMPLETE ([id number]) Care Teams Reinspector Relationship Specialty Start Date End Date Sheba Greco MD [address] [place], [place] PCP - General 10/12/20
[2024-11-25 15:25] LABS: Glucose, Whole Blood 117 mg/dL (60-115)
== END 2024-11-25 14:01 | disposition home or self-care (01) ==
PROVIDERS: PCP Internal Medicine; Visit Provider Physician Assistant
DX: E11.65 Type 2 diabetes mellitus with hyperglycemia (principal); Z79.4 Long term (current) use of insulin; I10 Essential (primary) hypertension; E78.00 Pure hypercholesterolemia, unspecified; E11.22 Type 2 diabetes mellitus with diabetic chronic kidney disease; N18.30 Chronic kidney disease, stage 3 unspecified

== ENCOUNTER → 2024-11-25 12:40 | Outpatient (BNVA) | payer OTHER, SELFPAY | PROVIDERS: PCP Internal Medicine; Visit Provider Physician Assistant | DX: E11.65 Type 2 diabetes mellitus with hyperglycemia (principal); E78.00 Pure hypercholesterolemia, unspecified; I12.9 Hypertensive chronic kidney disease with stage 1 through stage 4 chronic kidney disease, or unspecified chronic kidney disease; E11.22 Type 2 diabetes mellitus with diabetic chronic kidney disease; N18.30 Chronic kidney disease, stage 3 unspecified; Z79.4 Long term (current) use of insulin | CPT/HCPCS: 82947; 99202 ==

== ENCOUNTER 2024-11-28 09:45 | Outpatient (AMB) | payer OTHER, SELFPAY ==
--- NOTE | 2024-11-28 10:25 | MHC.AMDMED ---
Intake Intake Visit Reasons: Dexcom G7 sensor Elevator Mechanic Apprentice Required: Yes Elevator Mechanic Apprentice Language: Commercial Sales Representative Name: An [facility] Accompanied by: Self / Same As Patient Allergies doxycycline Allergy (Intermediate, Verified 11/25/24 13:07) Itching levofloxacin Allergy (Intermediate, Verified 11/25/24 13:07) Itching metformin Allergy (Intermediate, Verified 11/25/24 13:07) diarrhea morphine [MORPHINE] Allergy (Intermediate, Verified 11/25/24 13:07) ITCHING tetracycline Allergy (Intermediate, Verified 11/25/24 13:07) Itching cefazolin Adverse Reaction (Mild, Verified 11/25/24 13:07) Diarrhea, itchy HPI Comprehensive Diabetes Asmnt Most Recent Diabetes Results: Hemoglobin A1c 7.7 % 07/03/18 Microalb/Creat Ratio 172.9 ug/mg cr (<30) H 11/13/24 Cholesterol 117 mg/dL (<200) 11/13/24 HDL Cholesterol 62 mg/dL (>40) 11/13/24 Triglycerides 54 mg/dL (<150) 11/13/24 Creatinine 1.06 mg/dL (0.5-1.4) 11/13/24 Blood Urea Nitrogen 18 mg/dL (9-16) H 11/13/24 Sodium 141 mmol/L (135-145) 11/13/24 Potassium 4.1 mmol/L (3.3-5.1) 11/13/24 Chloride 109 mmol/L (96-108) H 11/13/24 Carbon Dioxide 24 mmol/L (22-29) 11/13/24 Calcium 9.5 mg/dL (8.4-10.2) 11/13/24 AST 39 U/L (5-37) H 11/13/24 ALT 49 U/L (0-40) H 11/13/24 Total Protein 8.2 g/dL (6.5-8.0) H 11/13/24 Albumin 4.2 g/dL (3.5-5.0) 11/13/24 [facility] Medical History (Updated 11/25/24 @ 13:31 by Danielle Forte PA-C) CKD stage 3 due to type 2 diabetes mellitus Hypertensive retinopathy Nicotine dependence, cigarettes, uncomplicated Tubular adenoma of colon Restless leg syndrome Mild persistent asthma Diabetes mellitus, with long-term current use of insulin Pure hypercholesterolemia GERD (gastroesophageal reflux disease) Precordial chest pain Essential hypertension Non-rheumatic aortic stenosis Loss of hearing Anemia Asthma Surgical History History of esophagogastroduodenoscopy (EGD) History of colonoscopy History of cholecystectomy History of implantation of penile prosthesis Family History Father No problems noted. Mother No problems noted. Family/Other FH: mental illness Brother In good health Sister In good health Son In good health Daughter In good health Other Mental health disorder Social History Household Members: None Housing: Apartment Do you presently have visiting nurse or other home services: No Alcohol intake: current Alcohol intake frequency: holidays/special occasions only Alcohol type: hard liquor Patient Tobacco Use Status: Current everyday Tobacco user Tobacco use type: Cigarette Cigarettes Per Day: 10 e-Cigarette/Vaping Use: Never Used Second Hand Smoke Exposure: No service: No Current occupational status: disabled Cognitive needs: No Hearing needs: No Vision needs: Yes Assessment & Plan Assessment & Plan (1) Uncontrolled type 2 diabetes mellitus with hyperglycemia, with long-term current use of insulin: Code(s): E11.65 - Type 2 diabetes mellitus with hyperglycemia; Z79.4 - ferry terminal agent (current) use of insulin Plan: Patient at visit to set up an insert Dexcom G7 Instructed patient sensors water proof you can shower, or swim do not submerge sensor in water for over 30 minutes Is sensor falls off cannot put back in you need to replace sensor, customer service number given to patient for sensor replacement Sensor placed on the back of left arm Patient left visit with sensor in warmup Reviewed how to interpret trend arrows Reminded patient that to check finger sticks if symptoms do not match sensor reading. Discussed lag time between finger stick and sensor data.? Instructed patient she should always keep blood glucometer for backup testing if needed Reviewed delay of CGM from fingersticks Reminded pt that if symptoms do not match sensor still needs to check fingersticks. Portions of this note were created using voice recognition software, please excuse any words or phrases that may have been misinterpreted. Patient Instructions: Instrucciones para el paciente: CGM proporciona informaci?n sobre el control de la glucosa en ashley a lo evon del d?a, incluidas la hiperglucemia y la hipoglucemia. Contin?e controlando la glucosa en ashley seg?n las instrucciones. Siga las pautas de nutrici?n proporcionadas. Informe cualquier molestia de inmediato al proveedor de atenci?n m?dica. Mantente maxx hidratado. Puede ba?arse, ducharse, nadar y hacer ejercicio mientras usa el sensor de glucosa. No sumerja el sensor de glucosa en agua sung m?s de 30 minutos. Retire el sensor para jennifer resonancia magn?antolin o jennifer tomograf?a computarizada. Evite la m?quina de pilo X en los aeropuertos: retire el sensor o solicite la varita Coding Level of Care Code Est Pt Level 1 (35940) Diagnoses Uncontrolled type 2 diabetes mellitus with hyperglycemia, with long-term current use of insulin E11.65; Z79.4
--- OUTSIDE RECORDS SUMMARY | 2024-11-28 11:11 | XMS_ITS | Encounter Summary ---
Author Organization [facility] Address [address] [facility] [address] [facility] [address] [place] [address] Phone Care Team Providers Care Geographic Information Scientist Name Role Phone Sheba Greco MD Primary Care Provider [phone] Encounter Details Date Type Department Care Team (Late st Contact Info) Description 02/20/2024 Office Communication [facility] [address] [facility] [address] [place] [address] Kurt Carbajal MD [address] [facility] [address] [place] [address] Social History Tobacco Use Types [...] Visit [facility] [address] [place] [address] Kurt Carbajal MD [address] [facility] [address] [place] [address] documented as of this encounter Visit Diagnoses Not on filedocumented in this encounter Care Teams Geographic Information Scientist Relationship Specialty Start Date End Date Sheba Greco MD [address] [place], [place] PCP - General 10/12/20 documented as of this encounter
--- OUTSIDE RECORDS SUMMARY | 2024-11-28 11:11 | XMS_ITS | Clinical Summary ---
Author Organization [facility] Address [address] [place] [address] [address] [place] [address] Care Team Providers Care Youth Ministry Director Name Role Phone Unavailable Primary Care Provider [...]
--- OUTSIDE RECORDS SUMMARY | 2024-11-28 11:11 | XMS_ITS | Clinical Summary ---
Author Organization [facility] Address [address] [facility] [address] [place] [address] Phone Care Team Providers Care Coal Passer Name Role Phone Sheba Greco MD Primary Care Provider [phone] Allergies Active Allergy Reactions Criticality Noted Date [...] [facility] [address] [facility] 200 [place] [address] Kurt Carbajal MD from Last 3 Months [...] Visit [facility] [address] [place] [address] Kurt Carbajal MD [address] [facility] [address] [place] [address] Health Maintenance Due Date Last Done Comments [...] % PVNMA 09/07/2020 us Rtama Conversion LAB [id number] LICITED RESULTS Final Result PVNMA from Last 3 Months or Most Recently Relevant to Health Maintenance Insurance [facility] DUAL COMPLETE ([id number]) [place]ID [place] [facility] DUAL COMPLETE ([id number]) Care Teams Coal Passer Relationship Specialty Start Date End Date Sheba Greco MD [address] [place], [place] PCP - General 10/12/20
--- OUTSIDE RECORDS SUMMARY | 2024-11-28 11:11 | XMS_ITS | Patient Health Record ---
Author Organization [facility] Address [address] [place] [address] Care Team Providers Care Contact Printer Dry Film Name Role Phone Sheba Greco Primary Care Provider Wil Sebastian Unavailable [phone] ALLERGIES Allergen (clinical drug ingredient) Drug/Non Drug [...] (Z12.11) Active confirmed Colon can cer screening (692303800) Problem Diverticulosis of large intestine without perforation or abscess without bleeding (K57.30) Active confirmed Diverticul ar disease of colon (047380757) Problem Gastroesophageal reflux disease without esophagitis (K21.9) Active confirmed 769481130 Problem History of White's esophagus (Z87.19) Active confirmed [id number] PLAN OF TREATMENT Future Test Test Name Order Date UPPER GI ENDOSCOPY 03/29/2012 COLONOSCOPY 03/29/2012 COLONOSCOPY 09/21/2022 Insurance Providers Payer Name Payer Address Payer Phone Subscriber Number Group Number Insured Name Patient Relationship to Insured Coverage Start Date Coverage End Date [facility] [address] [address] [place] [phone] [id number] FOREIGN ORTA Self - patient is the insured MEDICAL (GENERAL) HISTORY Medical History History ICD Code IDDM HTN White's esophagus(small area) seen on an EGD prior to 2011 GERD--EGD was negative for esophagitis a nd White's in 2011 Denies [place],CVA, and renal disease Cardiac catheterizations-? results Negative screening colonoscopy in 2011 Asthma Surgical History Surgery Date(Month/Year) cholecystectomy penile prosthesis-01/2012
--- OUTSIDE RECORDS SUMMARY | 2024-11-28 11:11 | XMS_ITS | Encounter Summary ---
Author Organization [facility] Address [address] [facility] [address] [place] [address] Phone Care Team Providers Care Correspondence Transcriber Name Role Phone Sheba Greco MD Primary Care Provider [phone] Reason for Visit * Reason Comments Med Refill Encounter Details Date Type Department Care Team (Late Contact Info) Description 11/03/2024 Refill [facility] [address] [facility] [address] [place] [address] Kurt Carbajal MD [address] [address] Social History Tobacco Use [...] Visit [facility] [address] [place] [address] Kurt Carbajal MD [address] [address] documented as of this encounter Visit Diagnoses Not on filedocumented in this encounter Care Teams Correspondence Transcriber Relationship Specialty Start Date End Date Sheba Greco MD [address] [place], [place] PCP - General 10/12/20 documented as of this encounter
--- OUTSIDE RECORDS SUMMARY | 2024-11-28 11:11 | XMS_ITS | Encounter Summary ---
Author Organization [facility] Address [address] [facility] [address] [place] [address] Phone Care Team Providers Care Patrol Conductor Name Role Phone Sheba Greco MD Primary Care Provider [phone] Encounter Details Date Type Department Care Team (Late Contact Info) Description 04/24/2024 Office Communication [facility] [address] [facility] [address] [place] [address] Kurt Carbajal MD [address] [address] Social History Tobacco Use Types [...] Visit [facility] [address] [place] [place] [address] Kurt Carbajal MD [address] [facility] [address] [place] [address] documented as of this encounter Visit Diagnoses Not on filedocumented in this encounter Care Teams Patrol Conductor Relationship Specialty Start Date End Date Sheba Greco MD [address] [place] PCP - General 10/12/20 documented as of this encounter
== END 2024-11-28 10:27 | disposition home or self-care (01) ==
PROVIDERS: PCP Internal Medicine; Visit Provider Registered Nurse Diabetes Educator
DX: E11.65 Type 2 diabetes mellitus with hyperglycemia (principal); Z79.4 Long term (current) use of insulin

== ENCOUNTER → 2024-11-28 09:45 | Outpatient (BNVA) | payer OTHER, SELFPAY | PROVIDERS: PCP Internal Medicine; Visit Provider Registered Nurse Diabetes Educator | DX: E11.65 Type 2 diabetes mellitus with hyperglycemia (principal); Z79.4 Long term (current) use of insulin | CPT/HCPCS: 99211 ==

== ENCOUNTER 2024-12-09 08:52 | Outpatient (AMB) | payer OTHER, SELFPAY ==
--- OUTSIDE RECORDS SUMMARY | 2024-12-09 09:13 | XMS_ITS | Encounter Summary ---
Author Organization [facility] Address [address] [facility] [address] [place] [address] Phone Care Team Providers Care Electrical Tech Name Role Phone Sheba Greco MD Primary Care Provider [phone] Encounter Details Date Type Department Care Team (Late Contact Info) Description 04/24/2024 Office Communication [facility] [address] [facility] [address] [place] [address] Kurt Carbajal MD [address] [address] Social History Tobacco Use Types [...] Visit [facility] [address] [place] [address] [place] [address] Kurt Carbajal MD [address] [facility] [address] [place] [address] documented as of this encounter Visit Diagnoses Not on filedocumented in this encounter Care Teams Electrical Tech Relationship Specialty Start Date End Date Sheba Greco MD [address] [place] PCP - General 10/12/20 documented as of this encounter
--- OUTSIDE RECORDS SUMMARY | 2024-12-09 09:13 | XMS_ITS | Clinical Summary ---
Author Organization [facility] Address [address] [facility] [address] [place] [address] Phone Care Team Providers Care Applications Support Lead Name Role Phone Sheba Greco MD Primary Care Provider [phone] Allergies Active Allergy Reactions Criticality Noted Date Comments Cephalosporins 09/04/2012 Doxycycline 09/04/2012 Insulin Degludec Other (see comments) Levofloxacin In D5w 09/04/2012 Morphine Other (see comments) 11/09/2020 Nsaids 09/04/2012 Lisinopril-Hydrochlorothiazide Other (see comments) 09/22/2016 Medications aspirin (ST HORACIO) 81 MG EC tabletIndicatio ns:Stage 3b chronic kidney disease (HCC) Take 1 tablet by mouth 1 (one) time each day Active cyclobenzaprine (FLEXERIL) 10 MG tabletIndicatio ns:Stage 3b chronic kidney disease (HCC) Take 1 tablet by mouth 1 (one) time each day Active dilTIAZem CD (CARDIZEM CD) 300 MG 24 hr capsuleIndicati ons:Stage 3b chronic kidney disease (HCC) Take 1 capsule by mouth 1 (one) time each day Active ferrous sulfate 325 (65 Fe) MG tabletIndicatio ns:Stage 3b chronic kidney disease (HCC) Comments: Filled Date: Oct 06 2019 7:58PM Patient Notes: TAKE 1 TABLET BY MOUTH ONCE A DAY Duration: 90 10/06/19 20 Active fluticasone (FLONASE) 50 MCG/ACT nasal sprayIndication s:Stage 3b chronic kidney disease (HCC) Administer 1 spray into each nostril 2 (two) times a day Active ipratropium-alb uterol (Combivent Respimat) 20-100 MCG/ACT inhalerIndicati ons:Stage 3b chronic kidney disease (HCC) Active ipratropium-alb uterol (DUO-NEB) 0.5-2.5 mg/3 mL nebulizer solutionIndicat ions:Stage 3b chronic kidney disease (HCC) as directed Acti ve Melatonin 5 MG capsuleIndicati ons:Stage 3b chronic kidney disease (HCC) as needed Active tamsulosin (FLOMAX) 0.4 MG 24 hr capsuleIndicati ons:Stage 3b chronic kidney disease (HCC) Take 1 capsule by mouth at bed time Active cholecalciferol (VITAMIN D-3) 50 MCG (1999 [place]) capsule vitamin d 2000 unit caps Active triamcinolone (KENALOG) 0.1 % cream triamcinolone acetonide 0.1 % crea Acti ve omeprazole (PriLOSEC) [address] capsule omeprazole 20 mg cpdr Active mupirocin (BACTROBAN) 2 % ointment mupirocin 2 % oint A ctive montelukast (SINGULAIR) 10 MG tablet montelukast sodium 10 mg tabs Active lisinopril (PRINIVIL,ZESTR IL) 20 MG tablet lisinopril 20 mg tabs Active sulfamethoxazol e-trimethoprim (BACTRIM DS,SEPTRA DS) 800-160 MG per tablet [...] AFECTADA DOS VECES AL D A Active ciprofloxacin-d examethasone (CIPRODEX) otic suspension INSTILL 4 DROPS INTO THE AFFECTED EAR(S) TWICE A DAY FOR 7 DAYS 11/27/19 21 Active cetirizine (ZyrTEC) 10 MG tablet cetirizine [...] PSULA CADA DOCE HORAS FOR 10 DAYS 12/03/19 21 Active hydrOXYzine (ATARAX) 25 MG tablet hydroxyzine hcl 25 mg tabs Active albuterol HFA (PROVENTIL HFA;VENTOLIN HFA) 108 (90 Base) MCG/ACT inhaler Inhale Active pioglitazone (ACTOS) 15 MG tablet Take by mouth Active Otezla 10 & 20 & 30 MG tablet therapy pack 07/26/20 21 Active GLYBURIDE PO Active fluticasone-rosina meterol (ADVAIR DISKUS) 100-50 MCG/DOSE diskus inhaler Inhale Active doxycycline (VIBRAMYCIN) 100 MG capsule doxycycline hyclate [...] ITCHING Active Lantus SoloStar 100 UNIT/ML injection 08/31/20 21 Active naproxen (NAPROSYN) 500 MG tablet naproxen 500 mg tablet TOME SEBASTIAN TABLETA DOS VECES AL D A Active clotrimazole-be tamethasone (LOTRISONE) cream Apply 0.05 application topically twice a day 02/10/20 22 Active amLODIPine (NORVASC) 2.5 MG tablet TOME SEBASTIAN TABLETA TODOS [place] 90 tablet 1 05/07/20 22 Active atorvastatin (LIPITOR) 10 MG tablet Take 10 mg by mouth 1 (one) time each day Active sodium polystyrene sulfonate (KAYEXALATE) powderIndicatio ns:Stage 3b chronic kidney disease (HCC) DISSOLVE 2 TABLESPOONFULS IN WATER AND DRINK TWICE A WEEK NEEDED 454 g 3 01/19/20 23 Active cephalexin (KEFLEX) 500 MG capsule TOME 1 C PSULA POR V A ORAL CADA 6 HORAS POR 7 D 06/21/20 24 Active predniSONE (DELTASONE) 20 MG tablet TAKE 3 TABLETS FOR 5 DAYS THEN 2 TABLETS FOR 4 DAYS THEN 1 TABLET FOR 3 DAYS 06/21/20 24 Active zolpidem (AMBIEN) 5 MG tablet TOME SEBASTIAN TABLETA POR V A ORAL AL ACOSTARSE CUANDO SEA NECESARIO PARA DORMIR Active sodium bicarbonate 650 MG tablet TOME SEBASTIAN TABLETA (650 MG TOTAL) POR VIA ORAL EN LA MANANA EN LA NOCHE AND AL ACOSTARSE 270 tablet 11/03/19 25 025 Active Active Problems Problem Noted Date Diagnosed Date [...] [facility] [address] [place] [address] Kurt Carbajal MD from Last 3 Months [...] kg (164 lb 9.6 oz) 06/24/2024 1:14 P M EDT Height 170.2 cm (5' 7 ) 01/16/2023 1:14 PM EDT Body Mass Index 25.78 01/16/2023 1:14 PM EDT Plan of Treatment Upcoming Encounters Date Type Department Care Team (Late st Contact Info) Description 03/24/2025 1:30 PM EDT Office Visit [facility] [address] [place] [place] [address] Kurt Carbajal MD 0[address] [facility] [address] [place] [address] Health Maintenance Due Date Last Done Comments [...] % PVNMA 09/07/2020 us [facility] Conversion [facility] [id number] LICITED RESULTS Final Result PVNMA from Last 3 Months or Most Recently Relevant to Health Maintenance Insurance [address] [place] [address], [place] [address] [facility] DUAL [facility]PLE[facility] ([id number]) [place] [facility] [place] [facility] ([id number]) Care Teams Applications Support Lead Relationship Specialty Start Date End Date Sheba Greco MD [address] [place], [place] PCP - General 10/12/20
--- OUTSIDE RECORDS SUMMARY | 2024-12-09 09:13 | XMS_ITS | Encounter Summary ---
Author Organization [facility] Address [address] [facility] [address] [facility] [address] [place] [address] Phone Care Team Providers Care Cow Washer Name Role Phone Sheba Greco MD Primary Care Provider [phone] Encounter Details Date Type Department Care Team (Late st Contact Info) Description 02/20/2024 Office Communication [facility] [address] [facility] [address] [place] [address] Kurt Carbajal MD [address] [facility] [address] [place] [address] Social History Tobacco Use Types [...] Visit [facility] [address] [place] [address] Kurt Carbajal MD [address] [facility] [address] [place] [address] documented as of this encounter Visit Diagnoses Not on filedocumented in this encounter Care Teams Cow Washer Relationship Specialty Start Date End Date Sheba Greco MD [address] [place], [place] PCP - General 10/12/20 documented as of this encounter
--- OUTSIDE RECORDS SUMMARY | 2024-12-09 09:13 | XMS_ITS | Clinical Summary ---
Author Organization [facility] Address [address] [place] [address] [address] [place] [address] Care Team Providers Care Sky Diver Name Role Phone Unavailable Primary Care Provider [...]
--- OUTSIDE RECORDS SUMMARY | 2024-12-09 09:13 | XMS_ITS | Patient Health Record ---
Author Organization [facility] Address [address] [place] [address] Care Team Providers Care Media Services Director Name Role Phone Sheba Greco Primary Care Provider Wil Sebastian Unavailable [phone] Allergies Allergen (clinical drug ingredient) Drug/Non Drug Allergy documented on EMR Reaction Allergy Type Onset Date Status morphine Morphine Sulfate Unknown Drug Allergy Active Reason For Referral No Information Medications Medication SIG (Take, Route, Frequency, Duration) Notes [...] HCl 150mg Active glyBURIDE 5mg Not-Ta kayla Immunizations Vaccine Route Administration Date Status Comme nts Influenza Unknown 06/02/2022 Administered Problems Problem Type SNOMED Code ICD Code Onset Dates Problem Status W/U Status Risk Notes Problem Colon cancer screening (080880475) Colon cancer screening (Z12.11) Active confirmed Problem Diverticular disease of colon (047910884) Diverticulosis of large intestine without perforation or abscess without bleeding (K57.30) Active confirmed Problem 997833590 Gastroesophageal reflux disease without esophagitis (K21.9) Active confirmed Problem [id number] History of White's esophagus (Z87.19) Active confirmed Plan Of Treatment Future Test Test Name Order Date UPPER GI ENDOSCOPY 03/29/2012 COLONOSCOPY 03/29/2012 COLONOSCOPY 09/21/2022 Insurance Providers Payer Name Payer Address Payer Phone Subscriber Number Group Number Insured Name Patient Relationship to Insured Coverage Start Date Coverage End Date [facility] [address] [address] [place] [phone] [id number] FOREIGN ORTA Self - patient is the insured Medical (General) History Medical History History ICD Code IDDM HTN White's esophagus(small area) seen on an EGD prior to 2011 GERD--EGD was negative for esophagitis a nd White's in 2011 Denies [place],CVA, and renal disease Cardiac catheterizations-? results Negative screening colonoscopy in 2011 Asthma Surgical History Surgery Date(Month/Year) cholecystectomy penile prosthesis-01/2012
--- NOTE | 2024-12-09 09:15 | A.OFFVIS_ITS ---
Intake Intake Visit Reasons: 30 min Pricing Specialist Required: Yes Pricing Specialist Language: Rating Examiner Name: [id number] Accompanied by: Self / Same As Patient Allergies doxycycline Allergy (Intermediate, Verified 11/25/24 13:07) Itching levofloxacin Allergy (Intermediate, Verified 11/25/24 13:07) Itching metformin Allergy (Intermediate, Verified 11/25/24 13:07) diarrhea morphine [MORPHINE] Allergy (Intermediate, Verified 11/25/24 13:07) ITCHING tetracycline Allergy (Intermediate, Verified 11/25/24 13:07) Itching cefazolin Adverse Reaction (Mild, Verified 11/25/24 13:07) Diarrhea, itchy HPI Comprehensive Diabetes Asmnt Most Recent Diabetes Results: Microalb/Creat Ratio 172.9 ug/mg cr (<30) H 11/13/24 Cholesterol 117 mg/dL (<200) 11/13/24 HDL Cholesterol 62 mg/dL (>40) 11/13/24 Triglycerides 54 mg/dL (<150) 11/13/24 Creatinine 1.06 mg/dL (0.5-1.4) 11/13/24 Blood Urea Nitrogen 18 mg/dL (9-16) H 11/13/24 Sodium 141 mmol/L (135-145) 11/13/24 Potassium 4.1 mmol/L (3.3-5.1) 11/13/24 Chloride 109 mmol/L (96-108) H 11/13/24 Carbon Dioxide 24 mmol/L (22-29) 11/13/24 Calcium 9.5 mg/dL (8.4-10.2) 11/13/24 AST 39 U/L (5-37) H 11/13/24 ALT 49 U/L (0-40) H 11/13/24 Total Protein 8.2 g/dL (6.5-8.0) H 11/13/24 Albumin 4.2 g/dL (3.5-5.0) 11/13/24 [facility] Medical History (Updated 11/25/24 @ 13:31 by Danielle Forte PA-C) CKD stage 3 due to type 2 diabetes mellitus Hypertensive retinopathy Nicotine dependence, cigarettes, uncomplicated Tubular adenoma of colon Restless leg syndrome Mild persistent asthma Diabetes mellitus, with long-term current use of insulin Pure hypercholesterolemia GERD (gastroesophageal reflux disease) Precordial chest pain Essential hypertension Non-rheumatic aortic stenosis Loss of hearing Anemia Asthma Surgical History History of esophagogastroduodenoscopy (EGD) History of colonoscopy History of cholecystectomy History of implantation of penile prosthesis Family History Father No problems noted. Mother No problems noted. Family/Other FH: mental illness Brother In good health Sister In good health Son In good health Daughter In good health Other Mental health disorder Social History Household Members: None Housing: Apartment Do you presently have visiting nurse or other home services: No Alcohol intake: current Alcohol intake frequency: holidays/special occasions only Alcohol type: hard liquor Patient Tobacco Use Status: Current everyday Tobacco user Tobacco use type: Cigarette Cigarettes Per Day: 10 e-Cigarette/Vaping Use: Never Used Second Hand Smoke Exposure: No service: No Current occupational status: disabled Cognitive needs: No Hearing needs: No Vision needs: Yes Assessment & Plan Assessment & Plan (1) Uncontrolled type 2 diabetes mellitus with hyperglycemia, with long-term current use of insulin: Code(s): E11.65 - Type 2 diabetes mellitus with hyperglycemia; Z79.4 - assisted (current) use of insulin Plan: Personal Continuous Glucose Monitor: Patients CGM information limited due to sensor failure Pt uses Dexcom G7 Sensor data: Pt current sensor failed the day after insertion Patient removed old sensor, inserted new sensor on back of right arm independent ly. Added sensor code into irrigation worker. Patient left visit with new sensor in warmup Reviewed how to interpret trend arrows Reminded patient that to check finger sticks if symptoms do not match sensor reading. Discussed lag time between finger stick and sensor data.? Patient reports he will able to insert sensor independently at home without issue.? Portions of this note were created using voice recognition software, please excuse any words or phrases that may have been misinterpreted. Patient Instructions: Contact Crankshaft Balancer with Questions Coding Level of Care Code Est Pt Level 1 (13889) Diagnoses Uncontrolled type 2 diabetes mellitus with hyperglycemia, with long-term current use of insulin E11.65; Z79.4
== END 2024-12-09 09:51 | disposition home or self-care (01) ==
PROVIDERS: PCP Internal Medicine; Visit Provider Registered Nurse Diabetes Educator
DX: E11.65 Type 2 diabetes mellitus with hyperglycemia (principal); Z79.4 Long term (current) use of insulin

== ENCOUNTER → 2024-12-09 08:52 | Outpatient (BNVA) | payer OTHER, SELFPAY | PROVIDERS: PCP Internal Medicine; Visit Provider Registered Nurse Diabetes Educator | DX: E11.65 Type 2 diabetes mellitus with hyperglycemia (principal); Z79.4 Long term (current) use of insulin | CPT/HCPCS: 99211 ==

== ENCOUNTER 2024-12-23 13:21 | Outpatient (AMB) | payer OTHER, SELFPAY ==
--- NOTE | 2024-12-23 13:26 | A.OFFVIS_ITS ---
Vital Signs 12/23/24 13:27 Height 5 ft 7 in Weight 163 lb 2.273 oz BMI 25.5 BP 138/74 Blood Pressure Location Rt brachial Position Sitting Pulse 92 Pulse Source Pulse Oximeter Pulse Oximetry (%) 98 Oxygen Delivery Method Room Air Intake Visit Reasons: T2DM Intake Note: Patient present today for Type 2 Diabetes Mellitus Last Diabetic eye exam: 10/2024 Last Podiatry Visit: 10/2024 Most Recent HgA1C: 8.0%, 11/19/2024 Random Glucose: 155 mg/dl Preventive Medicine Officer Required: Yes Preventive Medicine Officer Language: Wheel And Pinion Inspector Services: Preventive Medicine Officer Present Preventive Medicine Officer Name: BENITA Sales/LARISA CUNNINGHAM Information Interpreted: non-clinical & clinical Accompanied by: Self / Same As Patient Allergies doxycycline Allergy (Intermediate, Verified 12/23/24 13:42) Itching levofloxacin Allergy (Intermediate, Verified 12/23/24 13:42) Itching metformin Allergy (Intermediate, Verified 12/23/24 13:42) diarrhea morphine [MORPHINE] Allergy (Intermediate, Verified 12/23/24 13:42) ITCHING tetracycline Allergy (Intermediate, Verified 12/23/24 13:42) Itching cefazolin Adverse Reaction (Mild, Verified 12/23/24 13:42) Diarrhea, itchy Medication List - Last Reconciled 12/23/24 by Danielle Forte PA-C acetaminophen (Tylenol) 650 mg (2 x 325 mg) PO Q4H PRN albuterol sulfate 2.5 mg (3 mL) inhalation Q6H PRN 30 days amlodipine 5 mg PO DAILY 90 days apremilast (Otezla) 30 mg PO BID aspirin 81 mg PO DAILY atorvastatin 40 mg PO BEDTIME 90 days blood sugar diagnostic (OneTouch Verio test strips) Use 3 times a day to test BG daily for 30 days blood-glucose sensor ([place] G7 Sensor device) Use daily As directed to monitor glucose. change q 10 days cholecalciferol (vitamin D3) 25 mcg PO DAILY 90 days cholestyramine (with sugar) 4 gram 4 grams PO BID 30 days clotrimazole-betamethasone 1-0.05 % 1 appl topical BID [diabetic shoes and inserts As directed] dulaglutide (Trulicity) 0.75 mg (0.5 mL) subcut QWEEK fluticasone propion-salmeterol 500-50 mcg/dose (Wixela Inhub) 1 inh PO BID 90 days gabapentin 600 mg (2 x 300 mg) PO DAILY 90 days glucose (Dex4 Glucose) 16 grams (4 x 4 gram) PO Q15M PRN insulin glargine (Lantus Solostar U-100 Insulin) 15 units (0.15 mL) subcut QPM 90 days ipratropium-albuterol 0.5 mg-3 mg(2.5 mg base)/3 mL 3 mL inhalation Q6H PRN 30 days ipratropium-albuterol 20-100 mcg/actuation (Combivent Respimat) 1 puff inhalation Q6H PRN 30 days lancets (Sidelines Delica Plus Lancet) CHECK BY FINGER STICK ROUTE 4 TIMES EVERY DAY lancets (OpenLabel Safety Lancets) As directed TID nebulizers (AeroEclipse II Nebulizer) As directed nicotine 1 patch transdermal DAILY 28 days omeprazole 20 mg PO BID [onetouch glucometer As directed] pen needle, diabetic (BD Ultra-Fine Short Pen Needle) As directed daily with Lantus pramipexole 0.125 mg PO BEDTIME 90 days sodium polystyrene sulfonate 15 grams PO BID 30 days tamsulosin 0.4 mg PO DAILY triamcinolone acetonide 0.1% 1 appl topical BID 1 week Ventolin HFA 90 mcg/actuation (albuterol sulfate) 2 puffs inhalation Q6H PRN 30 days NS zolpidem 10 mg PO BEDTIME 30 days HPI HPI T2DM: Details: Patient is a 74-year-old male with a significant past medical history of hypertension, anemia, GERD, hyperlipidemia, aortic stenosis, and type 2 diabetes presenting today for a consultation regarding diabetes. Preventive Medicine Officer: Paris Foster: He was diagnosed with diabetes around 1999. His last A1c was 8. He is currently on Lantus 35 units, Trulicity 0.75 mg weekly, and [id number] mg -at our last visit I discontinue Tradjenta and added Trulicity. I also provided him a Dexcom G7 and downloaded it for him. -Metformin causes GI distress cgm- 22% very hypergylcemic, 35 hypergylcemic, in range 43%, 0% hypoglycemic He states that everyone in his family has type 2 diabetes and when he was diagnosed he was confirmed type 2 diabetes. He does not believe he has ever had any formal diabetic Education. He states maybe when he was 1st diagnosed he met with a nurse but he has forgotten a lot of the information. CV: Blood pressure today in the office is 138/74. He is currently on norvasc 5 mg. cholesterol managed with atorvastatin 40 mg. Nephro: Follows with Dr. Carbajal for chronic kidney disease. States that this has been stable. [facility] Medical History (Updated 11/25/24 @ 13:31 by Danielle Forte PA-C) CKD stage 3 due to type 2 diabetes mellitus Hypertensive retinopathy Nicotine dependence, cigarettes, uncomplicated Tubular adenoma of colon Restless leg syndrome Mild persistent asthma Diabetes mellitus, with long-term current use of insulin Pure hypercholesterolemia GERD (gastroesophageal reflux disease) Precordial chest pain Essential hypertension Non-rheumatic aortic stenosis Loss of hearing Anemia Asthma Surgical History History of esophagogastroduodenoscopy (EGD) History of colonoscopy History of cholecystectomy History of implantation of penile prosthesis Family History Father No problems noted. Mother No problems noted. Family/Other FH: mental illness Brother In good health Sister In good health Son In good health Daughter In good health Other Mental health disorder Social History Household Members: None Housing: Apartment Do you presently have visiting nurse or other home services: No Alcohol intake: current Alcohol intake frequency: holidays/special occasions only Alcohol type: hard liquor Patient Tobacco Use Status: Current everyday Tobacco user Tobacco use type: Cigarette Cigarettes Per Day: 10 e-Cigarette/Vaping Use: Never Used Second Hand Smoke Exposure: No service: No Current occupational status: disabled Cognitive needs: No Hearing needs: No Vision needs: Yes Physical Exam Vital Signs: BMI result Body Mass Index 25.5 Const Orientation/consciousness: patient oriented x3 HEENT Ears: hearing grossly normal bilaterally Neck Thyroid: Thyroid normal Lymphatic: no lymphadenopathy noted Resp Auscultation: clear to auscultation bilaterally Cardio Rate: regular rate Rhythm: regular rhythm Heart sounds: S1 normal heart sound present and S2 normal heart sound present Skin General skin exam: no rashes or lesions noted Neuro General: patient oriented x3, gait normal and no focal motor deficits Results Reviewed Results Reviewed: Laboratory Tests 11/13/24 11/19/24 11/25/24 07:43 12:38 13:09 Creatinine 1.06 Estimated GFR > 60 Glucose (Clinic) 117 H Hgb A1c (Clinic) 8.0 H Triglycerides 54 Cholesterol 117 LDL Cholesterol, Calc 45 HDL Cholesterol 62 Laboratory Tests 11/13/24 07:44 Urine Creatinine 216.19 Urine Microalbumin 374.0 Microalb/Creat Ratio 172.9 H Assessment & Plan Assessment & Plan (1) Uncontrolled type 2 diabetes mellitus with hyperglycemia, with long-term current use of insulin: Code(s): E11.65 - Type 2 diabetes mellitus with hyperglycemia; Z79.4 - care home (current) use of insulin Category: Medical Plan: increase trulicity to 1.5 mg weekly increase jardiance to 25 mg decrease lantus to 25 units daily sensor applied today (2) CKD stage 3 due to type 2 diabetes mellitus: Code(s): E11.22 - Type 2 diabetes mellitus with diabetic chronic kidney disease; N18.30 - Chronic kidney disease, stage 3 unspecified Category: Medical Plan: Stable. Following with Nephrology (3) Essential hypertension: Code(s): I10 - Essential (primary) hypertension Category: Medical Plan: WNL. Continue current regimen (4) Pure hypercholesterolemia: Code(s): E78.00 - Pure hypercholesterolemia, unspecified Category: Medical Plan: At goal. Continue current regimen Medications: New empagliflozin (Jardiance) 25 mg PO QAM 90 tabs 1RF dulaglutide (Trulicity) 1.5 mg (0.5 mL) subcut QWEEK 2 mL 3RF Changed From insulin glargine (Lantus Solostar U-100 Insulin) 15 units (0.15 mL) subcut QPM 90 days 15 mL 3RF To insulin glargine (Lantus Solostar U-100 Insulin) 25 units (0.25 mL) subcut QPM 90 days 30 mL 3RF Discontinued dulaglutide (Trulicity) Discontinued Reason: Doctor's Order 0.75 mg (0.5 mL) subcut QWEEK 2 mL 3RF Coding Level of Care Code Est Pt Level 4 (11196) Complex EM visit Add On G2211 Diagnoses Uncontrolled type 2 diabetes mellitus with hyperglycemia, with long-term current use of insulin E11.65; Z79.4 CKD stage 3 due to type 2 diabetes mellitus E11.22; N18.30 Essential hypertension I10 Pure hypercholesterolemia E78.00
[2024-12-23 13:27] VITALS: BP 138/74; PULSE 92; O2SAT 98; BMI 25.5
[2024-12-23 13:45] LABS: Glucose, Whole Blood 155 mg/dL (60-115)
== END 2024-12-23 14:04 | disposition home or self-care (01) ==
LOC: HO.ENCR 13:22
PROVIDERS: PCP Internal Medicine; Visit Provider Physician Assistant
DX: E11.65 Type 2 diabetes mellitus with hyperglycemia (principal); Z79.4 Long term (current) use of insulin; E11.22 Type 2 diabetes mellitus with diabetic chronic kidney disease; N18.30 Chronic kidney disease, stage 3 unspecified; I10 Essential (primary) hypertension; E78.00 Pure hypercholesterolemia, unspecified

== ENCOUNTER → 2024-12-23 13:21 | Outpatient (BNVA) | payer OTHER, SELFPAY | PROVIDERS: PCP Internal Medicine; Visit Provider Physician Assistant | DX: E11.65 Type 2 diabetes mellitus with hyperglycemia (principal); I12.9 Hypertensive chronic kidney disease with stage 1 through stage 4 chronic kidney disease, or unspecified chronic kidney disease; E11.22 Type 2 diabetes mellitus with diabetic chronic kidney disease; N18.30 Chronic kidney disease, stage 3 unspecified; E78.00 Pure hypercholesterolemia, unspecified; Z79.4 Long term (current) use of insulin | CPT/HCPCS: 82947; 99212 ==

== ENCOUNTER 2024-12-26 10:59 | Outpatient (AMB) | payer OTHER, SELFPAY ==
--- NOTE | 2024-12-26 11:41 | A.OFFVIS_ITS ---
Intake Intake Visit Reasons: Calibrate Dexcom Surface Plate Finisher Required: Yes Surface Plate Finisher Language: Stock Chaser Name: Cristal [facility] Accompanied by: Self / Same As Patient Allergies doxycycline Allergy (Intermediate, Verified 12/23/24 13:42) Itching levofloxacin Allergy (Intermediate, Verified 12/23/24 13:42) Itching metformin Allergy (Intermediate, Verified 12/23/24 13:42) diarrhea morphine [MORPHINE] Allergy (Intermediate, Verified 12/23/24 13:42) ITCHING tetracycline Allergy (Intermediate, Verified 12/23/24 13:42) Itching cefazolin Adverse Reaction (Mild, Verified 12/23/24 13:42) Diarrhea, itchy HPI Comprehensive Diabetes Asmnt Most Recent Diabetes Results: Hemoglobin A1c 7.7 % 07/03/18 Microalb/Creat Ratio 172.9 ug/mg cr (<30) H 11/13/24 Cholesterol 117 mg/dL (<200) 11/13/24 HDL Cholesterol 62 mg/dL (>40) 11/13/24 Triglycerides 54 mg/dL (<150) 11/13/24 Creatinine 1.06 mg/dL (0.5-1.4) 11/13/24 Blood Urea Nitrogen 18 mg/dL (9-16) H 11/13/24 Sodium 141 mmol/L (135-145) 11/13/24 Potassium 4.1 mmol/L (3.3-5.1) 11/13/24 Chloride 109 mmol/L (96-108) H 11/13/24 Carbon Dioxide 24 mmol/L (22-29) 11/13/24 Calcium 9.5 mg/dL (8.4-10.2) 11/13/24 AST 39 U/L (5-37) H 11/13/24 ALT 49 U/L (0-40) H 11/13/24 Total Protein 8.2 g/dL (6.5-8.0) H 11/13/24 Albumin 4.2 g/dL (3.5-5.0) 11/13/24 [facility] Medical History CKD stage 3 due to type 2 diabetes mellitus Hypertensive retinopathy Nicotine dependence, cigarettes, uncomplicated Tubular adenoma of colon Restless leg syndrome Mild persistent asthma Diabetes mellitus, with long-term current use of insulin Pure hypercholesterolemia GERD (gastroesophageal reflux disease) Precordial chest pain Essential hypertension Non-rheumatic aortic stenosis Loss of hearing Anemia Asthma Surgical History History of esophagogastroduodenoscopy (EGD) History of colonoscopy History of cholecystectomy History of implantation of penile prosthesis Family History Father No problems noted. Mother No problems noted. Family/Other FH: mental illness Brother In good health Sister In good health Son In good health Daughter In good health Other Mental health disorder Social History Household Members: None Housing: Apartment Do you presently have visiting nurse or other home services: No Alcohol intake: current Alcohol intake frequency: holidays/special occasions only Alcohol type: hard liquor Patient Tobacco Use Status: Current everyday Tobacco user Tobacco use type: Cigarette Cigarettes Per Day: 10 e-Cigarette/Vaping Use: Never Used Second Hand Smoke Exposure: No service: No Current occupational status: disabled Cognitive needs: No Hearing needs: No Vision needs: Yes Assessment & Plan Assessment & Plan (1) Uncontrolled type 2 diabetes mellitus with hyperglycemia, with long-term current use of insulin: Code(s): E11.65 - Type 2 diabetes mellitus with hyperglycemia; Z79.4 - [facility] (current) use of insulin Plan: Personal Continuous Glucose Monitor: Patients CGM information reviewed, Pt uses Dexcom G7 with director federal Sensor data: Hypoglycemia: ? 1% Hyperglycemia:? 49% Time in Range:? 50% Average glucose for the last 2 weeks? 189 mg/dL Patient complained of alerts and alarms from Dexcom G7 director federal, all alerts with the exception of the low alert turned off We also discussed the difference between the fingerstick and the glucose sensor, showed patient at today's visit how to calibrate if sensor and meter are more than 60-80 mg/dL apart. Reviewed with patient how to treat hypoglycemia with rule of 15s Discussed with patient common foods that contain carbohydrates in how carbohydrates affect glucose Carbohydrate list in Zambian given at patient's visit Also reviewed recommended target for A1c, patient reports PCP told him he needs to get his A1c to 5%, explained to patient that the goal for A1c for people with diabetes is 7% or under Patient agreed Dexcom G7 sensors because he has for left at home Reviewed how to interpret trend arrows Reminded patient that to check finger sticks if symptoms do not match sensor reading. Discussed lag time between finger stick and sensor data.? Patient able to insert sensor independently at home without issue.? Portions of this note were created using voice recognition software, please excuse any words or phrases that may have been misinterpreted. Patient Instructions: Patient will follow-up with hematology nurse educator in 3 months Coding Level of Care Code Est Pt Level 1 (70727) Diagnoses Uncontrolled type 2 diabetes mellitus with hyperglycemia, with long-term current use of insulin E11.65; Z79.4
--- OUTSIDE RECORDS SUMMARY | 2024-12-26 14:32 | XMS_ITS | Encounter Summary ---
Author Organization [facility] Address [address] [facility] [address] [place] [address] Phone Care Team Providers Care Plastic Worker Name Role Phone Sheba Greco MD Primary Care Provider Encounter Details Date Type Department Care Team (Late st Contact Info) Description 02/20/2024 Office Communication [facility] [address] [facility] [address] [place] [address] Kurt Carbajal MD [address] [facility] [address] [place] [address] Social History Tobacco Use Types Packs/Day Years Used Date Smoking Tobacco: Every Day Cigarettes 0.5 6.8 Started: 03/16/2018 Smokeless Tobacco: Never Alcohol Use [...] Visit [facility] [address] [place] [address] Kurt Carbajal MD [address] [facility] [address] [place] [address] documented as of this encounter Visit Diagnoses Not on filedocumented in this encounter Care Teams Plastic Worker Relationship Specialty Start Date End Date Sheba Greco MD [address] [place], [place] PCP - General 10/12/20 documented as of this encounter
--- OUTSIDE RECORDS SUMMARY | 2024-12-26 14:32 | XMS_ITS | Encounter Summary ---
Author Organization [employer] Address [address] [place] [address] Care Team Providers Care Lye Peel Operator Name Role Phone Physician, Pcp Unknown Primary Care Provider Alicia vailable Encounter Details Date Type Department Care Team (Late st Contact Info) Description 2024 Lab Requisition [facility] - Main Lab [address] [facility] [place] [address] Kurt Velasquez MD [address] [facility] [address] [place] [address] Displacement of implanted penile prosthesis, subsequent encounter; Urinary tract infection, site not specified Social History Tobacco Use Types Packs/Day Years Used Date Smoking Tobacco: Never Assessed Sex and Gender Information Value Date Recorded Sex Assigned at Not on file Legal Sex Male 12:32 PM EDT Gender Identity Not on file Sexual Orientation Not on file documented as of this encounter Plan of Treatment Not on file documented as of this encounter Procedures Procedure Name Priority Date/Time Associated Diagnosis Comments COMPLETE BLOOD COUNT Routine 2024 10:05 AM EDT Displacement of implanted penile prosthesis, subsequent encounter Urinary tract infection, site not specified documented in this encounter Results * Complete blood count (2024 10:05 AM EDT) WBC 9.4 4.8 - 10.8 K/[facility] LAB HEMETOLOGY METHOD 2024 1:55 PM EDT [facility] RBC 4.70 4.50 - 5.50 M/[facility] LAB HEMETOLOGY METHOD 2024 1:55 PM EDT [facility] Hemoglobin 13.9 13.5 - 17.5 g/dL LAB HEMETOLOGY METHOD 2024 1:55 PM EDT [facility] Hematocrit 43.1 42.0 - 54.0 % LAB HEMETOLOGY METHOD 2024 1:55 PM EDT [facility] MCV 92.7 79.0 - 98.0 FL LAB HEMETOLOGY METHOD 2024 1:55 PM EDT [facility] MCH 29.9 27.0 - 32.0 pcg LAB HEMETOLOGY METHOD 2024 1:55 PM EDT [facility] MCHC 32.3 32.0 - 37.0 g/dL LAB HEMETOLOGY METHOD 2024 1:55 PM EDT [facility] RDW 13.7 11.0 - 15.0 % LAB HEMETOLOGY METHOD 2024 1:55 PM EDT [facility] Platelets 246 130 - 400 K/mcL LAB HEMETOLOGY METHOD 2024 1:55 PM EDT [facility] MPV 10.2 7.0 - 11.0 FL LAB HEMETOLOGY METHOD 2024 1:55 PM EDT [facility] NRBC 0.0 <1.0 % LAB HEMETOLOGY METHOD 2024 1:55 PM EDT [facility] NRBC Absolute 0.00 <0.10 K/mcL LAB HEMETOLOGY METHOD 2024 1:55 PM EDT [facility] Blood Venous blood specimen / Unknown 2024 10:05 AM EDT 2024 12:40 PM EDT us Kurt Velasquez MD LAB BLOOD ORDERABLES [place] Result [facility] [address] [place] [address], documented in this encounter Visit Diagnoses Diagnosis Displacement of implanted penile prosthesis, subsequent encounter Urinary tract infection, site not specified documented in this encounter Care Teams Lye Peel Operator Relationship Specialty Start Date End Date Physician, Pcp Unknown PCP - General 12/11/24 documented as of this encounter
--- OUTSIDE RECORDS SUMMARY | 2024-12-26 14:32 | XMS_ITS | Clinical Summary ---
Author Organization [facility] Address [address] [place] [address] Phone Care Team Providers Care Dog Races Manager Name Role Phone Sheba Greco MD Primary Care Provider [phone] Allergies Active Allergy Reactions Criticality Noted Date [...] [place] [address] [place] [address] Kurt Carbajal MD from Last 3 Months [...] 0.5 6.8 Started: 03/16/2018 Smokeless Tobacco: Never Tobacco Cessation:Ready [...] [facility] [address] [place] [id number] Kurt Carbajal MD [address] [facility] [address] [place] [address] Health Maintenance Due Date Last [...] % [facility] 09/07/2020 us [facility] LAB [id number] LICITED RESULTS Final Result [facility] from Last 3 Months or Most Recently Relevant to Health Maintenance Insurance [address] [place] [address], [place] [address] [facility] DUAL COMPLETE ([id number]) [place] [facility] DUAL COMPLETE ([id number]) Care Teams Dog Races Manager Relationship Specialty Start Date End Date Sheba Greco MD [address] [place], [place] PCP - General 10/12/20
--- OUTSIDE RECORDS SUMMARY | 2024-12-26 14:32 | XMS_ITS | Encounter Summary ---
Author Organization [facility] Address [address] [facility] [address] [place] [address] Phone Care Team Providers Care Blast Furnace Operator Name Role Phone Sheba Greco MD Primary Care Provider [phone] Encounter Details Date Type Department Care Team (Late Contact Info) Description 04/24/2024 Office Communication [facility] [address] [facility] [address] [place] [address] Kurt Carbajal MD [address] [address] Social History Tobacco Use Types [...] Visit [facility] [address] [place] [address] Kurt Carbajal MD [address] [facility] [address] [place] [address] documented as of this encounter Visit Diagnoses Not on filedocumented in this encounter Care Teams Blast Furnace Operator Relationship Specialty Start Date End Date Sheba Greco MD [address] [place] PCP - General 10/12/20 documented as of this encounter
--- OUTSIDE RECORDS SUMMARY | 2024-12-26 14:32 | XMS_ITS | Patient Health Record ---
Author Organization [facility] Address [address] [place] [address] Care Team Providers Care Parole Officer Name Role Phone Sheba Greco Primary Care Provider Wil Sebastian Unavailable [phone] Allergies Allergen (clinical drug ingredient) Drug/Non Drug [...] Status Risk Notes Problem Colon cancer screening (090470966) Colon cancer screening (Z12.11) Active confirmed Problem Diverticular disease of colon (085888649) Diverticulosis of large intestine without perforation or abscess without bleeding (K57.30) Active confirmed Problem 225542444 Gastroesophageal reflux disease without esophagitis (K21.9) Active confirmed Problem [id number] 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 [address] [place] [address] [phone] [id number] [employer] Self - patient is the insured Medical (General) History Medical History History ICD Code IDDM HTN White's esophagus(small area) seen on an EGD prior to 2011 GERD--EGD was negative for esophagitis a nd White's in 2011 Denies [place],CVA, and renal disease Cardiac catheterizations-? results Negative screening colonoscopy in 2011 Asthma Surgical History Surgery Date(Month/Year) cholecystectomy penile prosthesis-01/2012
--- OUTSIDE RECORDS SUMMARY | 2024-12-26 14:32 | XMS_ITS | Clinical Summary ---
Author Organization 299 [facility] Address [address] [place] [address] Phone Care Team Providers Care Lamps Tester And Inspector Name Role Phone Physician, Pcp Unknown Primary Care Provider Alicia vailable Encounters Date Type Department Care Team Description 2024 Lab Requisition [facility] - Main Lab 299 [facility] [place] [address] Kurt Velasquez MD Displacement of implanted penile prosthesis, subsequent encounter; Urinary tract infection, site not specified from Last 3 Months Social History Tobacco Use Types Packs/Day Years Used Date Smoking Tobacco: Never Assessed Sex and Gender Information Value Date Recorded Sex Assigned at Not on file Legal Sex Male 12:32 PM EDT Gender Identity Not on file Sexual Orientation Not on file Plan of Treatment Health Maintenance Due Date Last Done Comments DTaP,Tdap,and Td Vaccines (1 - Tdap) 12/09/1970 Pneumococcal Vaccine: 50+ Ye ars (1 of 1 - PCV) 12/09/2001 Zoster Vaccines (1 of 2) 12/09/2001 COVID-19 Vaccine ( - 2023-2 5 season) 2024 Influenza Vaccine (#1) 2024 Abdominal Aortic Aneurysm (A AA) Screen 2024 Cholesterol Screening (Lipid Panel) 2024 Colorectal Cancer Screening: Colonoscopy 2024 Depression Screening 2024 Falls Risk Assessment 2024 Hepatitis C Screening 2024 Medicare Annual Wellness Visit 2024 Social Influencers of Health Screening 2024 RSV Immunization Patients 60 + Years Old (1 - 1-dose 75+ series) 12/09/2026 HIB Vaccines Aged Out No longer eligi [...] on patient's age to complete this topic MMR Vaccines Aged Out No longer eligi ble based on patient's age to complete this topic Meningococcal ACWY Vaccine Aged Out N o longer eligible based on patient's age to complete this topic Meningococcal B Vacine Aged Out No lo nger eligible based on patient's age to complete this topic RSV Immunization Patients Un sulema 20 months Aged Out No longer eligible b ased on patient's age to complete this topic Varicella Vaccines Aged Out No longer eligible based on patient's age to complete this topic Procedures Procedure Name Priority Date/Time Associated Diagnosis Comments COMPLETE BLOOD COUNT Routine 2024 10:05 AM EDT Displacement of implanted penile prosthesis, subsequent encounter Urinary tract infection, site not specified from Last 3 Months Results * Complete blood count (2024 10:05 AM EDT) WBC 9.4 4.8 - 10.8 K/mcL LAB [facility] RBC 4.70 4.50 - 5.50 M/mcL LAB HEMETOLOGY METHOD 2024 1:[facility] Hemoglobin 13.9 13.5 - 17.5 g/dL LAB HEMETOLOGY METHOD 2024 1:55 PM [facility] LAB Hematocrit 43.1 42.0 - 54.0 % LAB HEMETOLOGY METHOD 2024 1:55 PM [facility] LAB MCV 92.7 79.0 - 98.0 FL LAB HEMETOLOGY METHOD 2024 1:55 PM [facility] LAB MCH 29.9 27.0 - 32.0 pcg LAB HEMETOLOGY METHOD 2024 1:55 PM EDT [facility] LAB MCHC 32.3 32.0 - 37.0 g/dL LAB HEMETOLOGY METHOD 2024 1:55 PM EDT [facility] LAB RDW 13.7 11.0 - 15.0 % LAB HEMETOLOGY METHOD 2024 1:55 PM EDT [facility] LAB Platelets 246 130 - 400 K/mcL LAB HEMETOLOGY METHOD 2024 1:55 PM EDT [facility] LAB MPV 10.2 7.0 - 11.0 FL LAB HEMETOLOGY METHOD 2024 1:55 PM EDT [facility] LAB NRBC 0.0 <1.0 % LAB HEMETOLOGY METHOD 2024 1:55 PM EDT [facility] LAB NRBC Absolute 0.00 <0.10 K/mcL LAB HEMETOLOGY METHOD 2024 1:55 PM EDT [facility] Blood Venous blood specimen / Unknown 2024 10:05 AM EDT 2024 12:40 PM EDT Kurt Velasquez MD LAB BLOOD ORDERABLES [place] Result [facility] [address] [place] [address], from Last 3 Months Insurance MEDICAID - [place] [employer] MEDICARE Care Teams Lamps Tester And Inspector Relationship Specialty Start Date End Date Physician, Pcp Unknown PCP - General 12/11/24
--- OUTSIDE RECORDS SUMMARY | 2024-12-26 14:33 | XMS_ITS | Clinical Summary ---
Author Organization [employer] Address [address] [place] [address] 7[address] [place] [address] Care Team Providers Care Bd Special Education Teacher Name Role Phone Unavailable Primary Care Provider [...]
== END 2024-12-26 11:44 | disposition home or self-care (01) ==
LOC: HO.ENCR 10:59
PROVIDERS: PCP Internal Medicine; Visit Provider Registered Nurse Diabetes Educator
DX: E11.65 Type 2 diabetes mellitus with hyperglycemia (principal); Z79.4 Long term (current) use of insulin

== ENCOUNTER → 2024-12-26 10:59 | Outpatient (BNVA) | payer OTHER, SELFPAY | PROVIDERS: PCP Internal Medicine; Visit Provider Registered Nurse Diabetes Educator | DX: E11.65 Type 2 diabetes mellitus with hyperglycemia (principal); Z79.4 Long term (current) use of insulin | CPT/HCPCS: 99211 ==

== ENCOUNTER 2025-01-13 10:11 | Outpatient (AMB) | payer OTHER, SELFPAY ==
--- NOTE | 2025-01-13 10:20 | MHC.OFFVIS ---
Vital Signs 01/13/25 10:24 Weight 166 lb 14.239 oz BP 98/46 L Blood Pressure Location Rt brachial Position Sitting Pulse 71 Pulse Source Pulse Oximeter Pulse Oximetry (%) 98 Oxygen Delivery Method Room Air Intake Visit Reasons: T2DM Intake Note: Patient present today for Type 2 Diabetes Mellitus Last Diabetic eye exam: 10/2024 Last Podiatry Visit: 10/2024 Random Glucose: 110 mg/dl HgA1C: 8.0% 11/19/24 Wall And Floor Tiler Required: Yes Wall And Floor Tiler Language: Door To Door Sales Representative Services: Wall And Floor Tiler Present Wall And Floor Tiler Name: Jonny [id number] Information Interpreted: non-clinical & clinical Accompanied by: Self / Same As Patient Allergies doxycycline Allergy (Intermediate, Verified 01/13/25 10:26) Itching levofloxacin Allergy (Intermediate, Verified 01/13/25 10:26) Itching metformin Allergy (Intermediate, Verified 01/13/25 10:26) diarrhea morphine [MORPHINE] Allergy (Intermediate, Verified 01/13/25 10:26) ITCHING tetracycline Allergy (Intermediate, Verified 01/13/25 10:26) Itching cefazolin Adverse Reaction (Mild, Verified 01/13/25 10:26) Diarrhea, itchy Medication List - Last Reconciled 01/13/25 by Danielle Forte PA-C acetaminophen (Tylenol) 650 mg (2 x 325 mg) PO Q4H PRN albuterol sulfate 2.5 mg (3 mL) inhalation Q6H PRN 30 days amlodipine 5 mg PO DAILY 90 days apremilast (Otezla) 30 mg PO BID aspirin 81 mg PO DAILY atorvastatin 40 mg PO BEDTIME 90 days blood sugar diagnostic (OneTouch Verio test strips) Use 3 times a day to test BG daily for 30 days blood-glucose sensor ([employer] G7 Sensor device) Use daily As directed to monitor glucose. change q 10 days cholecalciferol (vitamin D3) 25 mcg PO DAILY 90 days cholestyramine (with sugar) 4 gram 4 grams PO BID 30 days clotrimazole-betamethasone 1-0.05 % 1 appl topical BID [diabetic shoes and inserts As directed] fluticasone propion-salmeterol 500-50 mcg/dose (Wixela Inhub) 1 inh PO BID 90 days gabapentin 600 mg (2 x 300 mg) PO DAILY 90 days glucose (Dex4 Glucose) 16 grams (4 x 4 gram) PO Q15M PRN insulin glargine (Lantus Solostar U-100 Insulin) 25 units (0.25 mL) subcut QPM 90 days ipratropium-albuterol 0.5 mg-3 mg(2.5 mg base)/3 mL 3 mL inhalation Q6H PRN 30 days ipratropium-albuterol 20-100 mcg/actuation (Combivent Respimat) 1 puff inhalation Q6H PRN 30 days lancets (Top Prospect Delica Plus Lancet) CHECK BY FINGER STICK ROUTE 4 TIMES EVERY DAY lancets ([employer] Safety Lancets) As directed TID nebulizers (AeroEclipse II Nebulizer) As directed nicotine 1 patch transdermal DAILY 28 days omeprazole 20 mg PO BID [Quietymeuch glucometer As directed] pen needle, diabetic (BD Ultra-Fine Short Pen Needle) As directed daily with Lantus pramipexole 0.125 mg PO BEDTIME 90 days sodium polystyrene sulfonate 15 grams PO BID 30 days tamsulosin 0.4 mg PO DAILY triamcinolone acetonide 0.1% 1 appl topical BID 1 week Ventolin HFA 90 mcg/actuation (albuterol sulfate) 2 puffs inhalation Q6H PRN 30 days NS zolpidem 10 mg PO BEDTIME 30 days HPI HPI T2DM: Details: Patient is a 74-year-old male with a significant past medical history of hypertension, anemia, GERD, hyperlipidemia, aortic stenosis, and type 2 diabetes presenting today for a consultation regarding diabetes. Wall And Floor Tiler: Jonny Foster: He was diagnosed with diabetes around 1999. His last A1c was 8. He is currently on Lantus 25 units, Trulicity 1.5 mg weekly, and jardiance 25 mg He states that with the jardiance he does not have any dysuria, hematuria, fever, chills or flank pain. He is concerned about Trulicity causing weight loss however, he has gained 3 lb since our last visit. -Metformin causes GI distress, jardiance is causing increased urinary frequency. no uti sx. cgm- 15% very hypergylcemic, 35 hypergylcemic, in range 50%, 1% hypoglycemic. GMI 7.8%, avg glucose 189 He states that he has not had any low blood sugars He states that everyone in his family has type 2 diabetes and when he was diagnosed he was confirmed type 2 diabetes. He is following with diabetic Education CV: Blood pressure today in the office is 98/56. He is currently on norvasc 5 mg. cholesterol managed with atorvastatin 40 mg. Nephro: Follows with Dr. Carbajal for chronic kidney disease. States that this has been stable. [facility] Medical History CKD stage 3 due to type 2 diabetes mellitus Hypertensive retinopathy Nicotine dependence, cigarettes, uncomplicated Tubular adenoma of colon Restless leg syndrome Mild persistent asthma Diabetes mellitus, with long-term current use of insulin Pure hypercholesterolemia GERD (gastroesophageal reflux disease) Precordial chest pain Essential hypertension Non-rheumatic aortic stenosis Loss of hearing Anemia Asthma Surgical History History of esophagogastroduodenoscopy (EGD) History of colonoscopy History of cholecystectomy History of implantation of penile prosthesis Family History Father No problems noted. Mother No problems noted. Family/Other FH: mental illness Brother In good health Sister In good health Son In good health Daughter In good health Other Mental health disorder Social History Household Members: None Housing: Apartment Do you presently have visiting nurse or other home services: No Alcohol intake: current Alcohol intake frequency: holidays/special occasions only Alcohol type: hard liquor Patient Tobacco Use Status: Current everyday Tobacco user Tobacco use type: Cigarette Cigarettes Per Day: 10 e-Cigarette/Vaping Use: Never Used Second Hand Smoke Exposure: No service: No Current occupational status: disabled Cognitive needs: No Hearing needs: No Vision needs: Yes Physical Exam Const Orientation/consciousness: patient oriented x3 Neck Neck: Yes no lymphadenopathy Thyroid: Thyroid normal Carotids: no bruits Resp Auscultation: clear to auscultation bilaterally Cardio Rate: regular rate Rhythm: regular rhythm Heart sounds: S1 normal heart sound present, S2 normal heart sound present and Murmur heart sound present Peripheral pulses: dorsalis pedis present Neuro General: patient oriented x3, gait normal and no focal motor deficits Extrem Other: Monofilament sensation intact bilaterally. Vibratory sensation intact bilaterally. Skin intact. General: Yes normal to inspection Results Reviewed Results Reviewed: Laboratory Tests 11/13/24 11/19/24 12/23/24 07:43 12:38 13:41 Sodium 141 Potassium 4.1 Chloride 109 H Carbon Dioxide 24 Anion Gap 12 BUN 18 H Creatinine 1.06 Estimated GFR > 60 Glucose (Clinic) 155 H Hgb A1c (Clinic) 8.0 H AST 39 H ALT 49 H Alkaline Phosphatase 63 Triglycerides 54 Cholesterol 117 LDL Cholesterol, Calc 45 HDL Cholesterol 62 Assessment & Plan Assessment & Plan (1) Uncontrolled type 2 diabetes mellitus with hyperglycemia, with long-term current use of insulin: Code(s): E11.65 - Type 2 diabetes mellitus with hyperglycemia; Z79.4 - transit operations supervisor (current) use of insulin Category: Medical Plan: Stop jardiance due to urinary frequency increase trulicity to 3 mg continue lantus 25 units day (2) CKD stage 3 due to type 2 diabetes mellitus: Code(s): E11.22 - Type 2 diabetes mellitus with diabetic chronic kidney disease; N18.30 - Chronic kidney disease, stage 3 unspecified Category: Medical Plan: Stable (3) Pure hypercholesterolemia: Code(s): E78.00 - Pure hypercholesterolemia, unspecified Category: Medical Plan: Well-controlled continue current regimen (4) Essential hypertension: Code(s): I10 - Essential (primary) hypertension Category: Medical Plan: low end today will recheck in a few weeks Medications: New dulaglutide (Trulicity) 3 mg (0.5 mL) subcut QWEEK 2 mL 4RF Patient Instructions: STOP jardiance Continue lantus 25 units Increase trulicity to 3 mg weekly Coding Level of Care Code Est Pt Level 4 (46004) Complex EM visit Add On G2211 Diagnoses Uncontrolled type 2 diabetes mellitus with hyperglycemia, with long-term current use of insulin E11.65; Z79.4 CKD stage 3 due to type 2 diabetes mellitus E11.22; N18.30 Pure hypercholesterolemia E78.00 Essential hypertension I10
[2025-01-13 10:24] VITALS: BP 98/46; PULSE 71; O2SAT 98
[2025-01-13 10:35] LABS: Glucose, Whole Blood 110 mg/dL (60-115)
--- OUTSIDE RECORDS SUMMARY | 2025-01-13 11:36 | XMS_ITS | Encounter Summary ---
Author Organization [facility] Address [address] [facility] [address] [place] [address] Phone Care Team Providers Care Photographic Equipment Assembler Name Role Phone Sheba Greco MD Primary Care Provider [phone] Encounter Details Date Type Department Care Team (Late Contact Info) Description 04/24/2024 Office Communication [facility] [address] [facility] [address] [place] [address] Kurt Carbajal MD [address] [address] Social History Tobacco Use Types [...] Visit [facility] [address] [place] [address] Kurt Carbajal MD [address] [facility] [address] [place] [address] documented as of this encounter Visit Diagnoses Not on filedocumented in this encounter Care Teams Photographic Equipment Assembler Relationship Specialty Start Date End Date Sheba Greco MD [address] [place] PCP - General 10/12/20 documented as of this encounter
--- OUTSIDE RECORDS SUMMARY | 2025-01-13 11:36 | XMS_ITS | Encounter Summary ---
Author Organization [employer] Address [address] [place] [address] Care Team Providers Care Breadman Name Role Phone Physician, Pcp Unknown Primary Care Provider Alicia vailable Encounter Details Date Type Department Care Team (Late st Contact Info) Description [address] [facility] - Main Lab 299 [facility] [place] [address] Kurt Velasquez MD [address] [facility] [address] [place] [address] Displacement of implanted penile prosthesis, [...] AM EDT) WBC 9.4 4.8 - 10.8 K/[facility] LAB HEMETOLOGY METHOD 2024 1:55 PM EDT [facility] RBC 4.70 4.50 - 5.50 M/[facility] LAB HEMETOLOGY METHOD 2024 1:55 PM EDT [facility] Hemoglobin 13.9 13.5 - 17.5 g/dL LAB HEMETOLOGY METHOD 2024 1:55 PM EDT [facility] Hematocrit 43.1 42.0 - 54.0 % LAB HEMETOLOGY METHOD 2024 1:55 PM EDT [facility] MCV 92.7 79.0 - 98.0 FL LAB HEMETOLOGY METHOD 2024 1:55 PM EDT [facility] MCH 29.9 27.0 - 32.0 pcg LAB HEMETOLOGY METHOD 2024 1:55 PM EDT [facility] MCHC 32.3 32.0 - 37.0 g/dL LAB HEMETOLOGY METHOD 2024 1:55 PM EDT [facility] RDW 13.7 11.0 - 15.0 % LAB HEMETOLOGY METHOD 2024 1:55 PM EDT [facility] Platelets 246 130 - 400 K/mcL LAB HEMETOLOGY METHOD 2024 1:55 PM EDT [facility] MPV 10.2 7.0 - 11.0 FL LAB HEMETOLOGY METHOD 2024 1:55 PM EDT [facility] NRBC 0.0 <1.0 % LAB HEMETOLOGY METHOD 2024 1:55 PM EDT [facility] NRBC Absolute 0.00 <0.10 K/mcL LAB HEMETOLOGY METHOD 2024 1:55 PM EDT [facility] Blood Venous blood specimen / Unknown 2024 10:05 AM EDT 2024 12:40 PM EDT us Kurt Velasquez MD LAB BLOOD ORDERABLES [place] Result [facility] [address] [place] [address], documented in this encounter Visit Diagnoses Diagnosis Displacement of implanted penile prosthesis, subsequent encounter Urinary tract infection, site not specified documented in this encounter Care Teams Breadman Relationship Specialty Start Date End Date Physician, Pcp Unknown PCP - General 12/11/24 documented as of this encounter
--- OUTSIDE RECORDS SUMMARY | 2025-01-13 11:36 | XMS_ITS | Clinical Summary ---
Author Organization 299 [facility] Address [address] [place] [address] Phone Care Team Providers Care Making Machine Operator Name Role Phone Physician, Pcp Unknown Primary Care Provider Alicia vailable Encounters Date Type Department Care Team Description 2024 Lab Requisition [facility] - Main Lab 299 [facility] [place] [address] Kurt Velasquez MD Displacement of [...] Vaccine ( - 2023-2 5 season) 2024 Abdominal Aortic Aneurysm (A AA) Screen 2024 Cholesterol Screening (Lipid Panel) 2024 Colorectal Cancer Screening: Colonoscopy 2024 Depression Screening 2024 Falls Risk Assessment 2024 Hepatitis C Screening 2024 Medicare Annual Wellness Visit 2024 Social Influencers of Health Screening 2024 Influenza Vaccine (Season Ended) 2025 RSV Immunization Adult Patie nts (1 - 1-dose 75+ series) 12/09/2026 HIB [...] age to complete this topic Meningococcal B Vaccine Aged Out No l onger eligible based on patient's age to complete [...] LAB HEMETOLOGY METHOD 2024 1:55 PM EDT [facility] RBC 4.70 4.50 - 5.50 M/mcL [facility] Hemoglobin 13.9 13.5 - 17.5 g/dL [facility]Y [facility]24 [facility] Hematocrit 43.1 42.0 - 54.0 % LAB [facility]OLOGY METHOD [facility]24 [facility] MCV 92.7 79.0 - 98.0 FL LAB [facility]OLOGY [facility]24 [facility] MCH 29.9 27.0 - 32.0 pcg LAB HEMETOLOGY METHOD 2024 1:55 PM EDT [facility] LAB MCHC 32.3 32.0 - 37.0 g/dL LAB HEMETOLOGY METHOD 2024 1:55 PM EDT [facility] LAB RDW 13.7 11.0 - 15.0 % LAB HEMETOLOGY METHOD 2024 1:55 PM EDT [facility] LAB Platelets 246 130 - 400 K/mcL LAB HEMETOLOGY METHOD 2024 1:55 PM EDT [facility] LAB MPV 10.2 7.0 - 11.0 FL LAB HEMETOLOGY METHOD 2024 1:55 PM EDT [facility] NRBC 0.0 <1.0 % LAB HEMETOLOGY METHOD 2024 1:55 PM EDT [facility] NRBC Absolute 0.00 <0.10 K/mcL LAB HEMETOLOGY METHOD 2024 1:55 PM EDT [facility] Blood Venous blood specimen / Unknown 2024 10:05 AM EDT 2024 12:40 PM EDT Kurt Velasquez MD LAB BLOOD ORDERABLES [place] Result [facility] [address] [place] [address], from Last 3 Months Insurance [place]ID - [place] [employer] MEDICARE Care Teams Making Machine Operator Relationship Specialty Start Date End Date Physician, Pcp Unknown PCP - General 12/11/24
--- OUTSIDE RECORDS SUMMARY | 2025-01-13 11:36 | XMS_ITS | Encounter Summary ---
Author Organization [facility] Address [address] [facility] [address] [facility] [address] [place] [address] Phone Care Team Providers Care Bench Molder Apprentice Name Role Phone Sheba Greco MD Primary Care Provider [phone] Encounter Details Date Type Department Care Team (Late st Contact Info) Description 02/20/2024 Office Communication [facility] [address] [facility] [address] [place] [address] Kurt Carbajal MD [address] [facility] [address] [place] [address] Social History Tobacco Use Types [...] [facility] [address] [place] [address] Kurt Carbajal MD [address] [facility] [address] [place] [address] documented as of this encounter Visit Diagnoses Not on filedocumented in this encounter Care Teams Bench Molder Apprentice Relationship Specialty Start Date End Date Sheba Greco MD [address] [place], [place] PCP - General 10/12/20 documented as of this encounter
--- OUTSIDE RECORDS SUMMARY | 2025-01-13 11:37 | XMS_ITS | Patient Health Record ---
Author Organization [facility] Address [address] [place] [address] Care Team Providers Care Freight Caller Name Role Phone Sheba Greco Primary Care Provider Wil Sebastian Unavailable [phone] Allergies Allergen (clinical drug ingredient) Drug/Non Drug [...] Status Risk Notes Problem Colon cancer screening (157528938) Colon cancer screening (Z12.11) Active confirmed Problem Diverticular disease of colon (069948089) Diverticulosis of large intestine without perforation or abscess without bleeding (K57.30) Active confirmed Problem 470978538 Gastroesophageal reflux disease without esophagitis (K21.9) Active confirmed Problem [id number] History of White's esophagus (Z87.19) Active confirmed Plan Of Treatment Future Test Test Name Order Date UPPER GI ENDOSCOPY 03/29/2012 COLONOSCOPY 03/29/2012 COLONOSCOPY 09/21/2022 Insurance Providers Payer Name Payer Address Payer Phone Subscriber Number Group Number Insured Name Patient Relationship to Insured Coverage Start Date Coverage End Date [facility] [address] [address] [place] [address] [id number] [employer] Self - patient is the insured Medical (General) History Medical History History ICD Code IDDM HTN White's esophagus(small area) seen on an EGD prior to 2011 GERD--EGD was negative for esophagitis a nd White's in 2011 Denies NH,CVA, and renal disease Cardiac catheterizations-? results Negative screening colonoscopy in 2011 Asthma Surgical History Surgery Date(Month/Year) cholecystectomy penile prosthesis-01/2012
--- OUTSIDE RECORDS SUMMARY | 2025-01-13 11:37 | XMS_ITS | Clinical Summary ---
Author Organization [facility] Address [address] [facility] [address] [place] [address] Phone Care Team Providers Care Manager New Product Name Role Phone Sheba Greco MD Primary Care Provider [phone] Allergies Active Allergy Reactions Criticality Noted Date [...] [place] [address] [place] [address] Kurt Carbajal MD from Last 3 Months Immunizations Immunization Administration Dates Next Due Influenza Split High [...] Visit [facility] [address] [place] [id number] Kurt Carbajal MD [address] [facility] [address] [address] Health Maintenance Due Date Last Done Comments Colorectal Cancer Screening: Annual FOBT 12/09/2000 Colorectal Cancer Screening: Colonoscopy 12/09/2000 Colorectal Cancer Screening: Sigmoidoscopy 12/09/2000 Diabetes: Ophthalmology Exam 10/30/2020 Diabetes: Pedal Pulse Checked 10/30/2020 Diabetes: Sensory Foot Exam 10/30/2020 Diabetes: Visual Foot Exam 10/30/2020 Diabetes: Hemoglobin A1C 12/06/2020 09/07/2020 Influenza Vaccine (Season Ended) 2025 06/05/2021, 05/21/2020, 06/22/2019, Additional history exists Pneumococcal Vaccine: 50+ Years Completed 12/14/2023, 06/29/2016, 07/02/1997 Pneumococcal Vaccine: Peds (0 to 5 Years) and At-Risk Patients (6 to 49 Years) Discontinued 12/14/2023, 06/29/2016, 07/02/1997 Hepatitis B Vaccine Aged [...] % [facility] 09/07/2020 us [facility] [id number] LICITED RESULTS Final Result [facility]NMA from Last 3 Months or Most Recently Relevant to Health Maintenance Insurance Arsen Uriarte ([id number]) [place] Arsen Uriarte ([id number]) Care Teams Manager New Product Relationship Specialty Start Date End Date Sheba Greco MD [address] [place], [place] PCP - General 10/12/20
--- OUTSIDE RECORDS SUMMARY | 2025-01-13 11:37 | XMS_ITS | Clinical Summary ---
Author Organization [employer] Address [address] [place] [address] 7[address] [place] [address] Care Team Providers Care Machining Manager Name Role Phone Unavailable Primary Care Provider [...]
== END 2025-01-13 11:08 | disposition home or self-care (01) ==
LOC: HO.ENCR 10:12
PROVIDERS: PCP Internal Medicine; Visit Provider Physician Assistant
DX: E11.65 Type 2 diabetes mellitus with hyperglycemia (principal); Z79.4 Long term (current) use of insulin; E11.22 Type 2 diabetes mellitus with diabetic chronic kidney disease; N18.30 Chronic kidney disease, stage 3 unspecified; E78.00 Pure hypercholesterolemia, unspecified; I10 Essential (primary) hypertension

== ENCOUNTER → 2025-01-13 10:11 | Outpatient (BNVA) | payer OTHER, SELFPAY | PROVIDERS: PCP Internal Medicine; Visit Provider Physician Assistant | DX: E11.65 Type 2 diabetes mellitus with hyperglycemia (principal); I12.9 Hypertensive chronic kidney disease with stage 1 through stage 4 chronic kidney disease, or unspecified chronic kidney disease; E11.22 Type 2 diabetes mellitus with diabetic chronic kidney disease; N18.30 Chronic kidney disease, stage 3 unspecified; E78.00 Pure hypercholesterolemia, unspecified; Z79.4 Long term (current) use of insulin | CPT/HCPCS: 82947; 99212 ==

== ENCOUNTER 2025-02-10 10:54 | Outpatient (AMB) | payer OTHER, SELFPAY ==
[2025-02-10 10:57] VITALS: BP 106/60; PULSE 103; O2SAT 97; BMI 25.7
--- NOTE | 2025-02-10 10:57 | MHC.OFFVIS ---
Vital Signs 02/10/25 10:57 Height 5 ft 7 in Weight 163 lb 12.855 oz BMI 25.7 BP 106/60 Blood Pressure Location Lt brachial Position Sitting Pulse 103 H Pulse Source Pulse Oximeter Pulse Oximetry (%) 97 Oxygen Delivery Method Room Air Intake Visit Reasons: dm Intake Note: Patient present today for Type 2 Diabetes Mellitus Last Diabetic eye exam: 10/2024 Last Podiatry Visit: 12/2024 Random Glucose: 156 mg/dl HgA1C: 7.2% Traffic And Transport Planner Required: Yes Traffic And Transport Planner Language: Paper Feeder Services: Traffic And Transport Planner Present Traffic And Transport Planner Name: Damari [id number] Information Interpreted: non-clinical & clinical Accompanied by: Self / Same As Patient Allergies doxycycline Allergy (Intermediate, Verified 02/10/25 11:02) Itching levofloxacin Allergy (Intermediate, Verified 02/10/25 11:02) Itching metformin Allergy (Intermediate, Verified 02/10/25 11:02) diarrhea morphine [MORPHINE] Allergy (Intermediate, Verified 02/10/25 11:02) ITCHING tetracycline Allergy (Intermediate, Verified 02/10/25 11:02) Itching cefazolin Adverse Reaction (Mild, Verified 02/10/25 11:02) Diarrhea, itchy Medication List - Last Reconciled 02/10/25 by Danielle Forte PA-C acetaminophen (Tylenol) 650 mg (2 x 325 mg) PO Q4H PRN albuterol sulfate 2.5 mg (3 mL) inhalation Q6H PRN 30 days amlodipine 5 mg PO DAILY 90 days apremilast (Otezla) 30 mg PO BID aspirin 81 mg PO DAILY atorvastatin 40 mg PO BEDTIME 90 days blood sugar diagnostic (OneTouch Verio test strips) Use 3 times a day to test BG daily for 30 days blood-glucose sensor (ftopia G7 Sensor device) Use daily As directed to monitor glucose. change q 10 days cholecalciferol (vitamin D3) 25 mcg PO DAILY 90 days cholestyramine (with sugar) 4 gram 4 grams PO BID 30 days clotrimazole-betamethasone 1-0.05 % 1 appl topical BID [diabetic shoes and inserts As directed] fluticasone propion-salmeterol 500-50 mcg/dose (Wixela Inhub) 1 inh PO BID 90 days gabapentin 600 mg (2 x 300 mg) PO DAILY 90 days glucose (Dex4 Glucose) 16 grams (4 x 4 gram) PO Q15M PRN insulin glargine (Lantus Solostar U-100 Insulin) 25 units (0.25 mL) subcut QPM 90 days ipratropium-albuterol 0.5 mg-3 mg(2.5 mg base)/3 mL 3 mL inhalation Q6H PRN 30 days ipratropium-albuterol 20-100 mcg/actuation (Combivent Respimat) 1 puff inhalation Q6H PRN 30 days lancets ([employer] Delica Plus Lancet) CHECK BY FINGER STICK ROUTE 4 TIMES EVERY DAY lancets ([employer] Safety Lancets) As directed TID nebulizers (AeroEclipse II Nebulizer) As directed nicotine 1 patch transdermal DAILY 28 days omeprazole 20 mg PO BID [onetouch glucometer As directed] pen needle, diabetic (BD Ultra-Fine Short Pen Needle) As directed daily with Lantus pramipexole 0.125 mg PO BEDTIME 90 days sodium polystyrene sulfonate 15 grams PO BID 30 days tamsulosin 0.4 mg PO DAILY triamcinolone acetonide 0.1% 1 appl topical BID 1 week Ventolin HFA 90 mcg/actuation (albuterol sulfate) 2 puffs inhalation Q6H PRN 30 days NS zolpidem 10 mg PO BEDTIME 30 days HPI HPI dm: Details: Patient is a 74-year-old male with a significant past medical history of hypertension, anemia, GERD, hyperlipidemia, aortic stenosis, and type 2 diabetes presenting today for a consultation regarding diabetes. Traffic And Transport Planner: Damari Foster: He was diagnosed with diabetes around 1999. His last A1c was 8 and today it is 7.2. He is currently on Lantus 25 units, Trulicity 3 mg weekly - Last visit we DC the Jardiance due to urinary frequency. He has lost too much weight loss with trulicity. he states that he only really wants to be on insulin because he does not like how anything else makes his body feels. He has tried different oral drugs and has not tolerated them. he does not like the idea of the GLP ones as he does not want to lose weight. -Metformin causes GI distress, jardiance caused increased urinary frequency. cgm- 10% very hypergylcemic, 29 hypergylcemic, in range 61%, 0% hypoglycemic. GMI 7.4%, avg glucose 172 He states that he has not had any low blood sugars He states that everyone in his family has type 2 diabetes and when he was diagnosed he was confirmed type 2 diabetes. He is following with diabetic Education CV: Blood pressure today in the office is 106/60. He is currently on norvasc 5 mg. cholesterol managed with atorvastatin 40 mg. Nephro: Follows with Dr. Carbajal for chronic kidney disease. States that this has been stable. [facility] Medical History CKD stage 3 due to type 2 diabetes mellitus Hypertensive retinopathy Nicotine dependence, cigarettes, uncomplicated Tubular adenoma of colon Restless leg syndrome Mild persistent asthma Diabetes mellitus, with long-term current use of insulin Pure hypercholesterolemia GERD (gastroesophageal reflux disease) Precordial chest pain Essential hypertension Non-rheumatic aortic stenosis Loss of hearing Anemia Asthma Surgical History (Updated 02/04/25 @ 10:22 by Zoraida Monterroso) History of esophagogastroduodenoscopy (EGD) History of colonoscopy (~11/09/22) History of cholecystectomy History of implantation of penile prosthesis Family History Father No problems noted. Mother No problems noted. Family/Other FH: mental illness Brother In good health Sister In good health Son In good health Daughter In good health Other Mental health disorder Social History Household Members: None Housing: Apartment Do you presently have visiting nurse or other home services: No Alcohol intake: current Alcohol intake frequency: holidays/special occasions only Alcohol type: hard liquor Patient Tobacco Use Status: Current everyday Tobacco user Tobacco use type: Cigarette Cigarettes Per Day: 10 e-Cigarette/Vaping Use: Never Used Second Hand Smoke Exposure: No service: No Current occupational status: disabled Cognitive needs: No Hearing needs: No Vision needs: Yes Physical Exam Vital Signs: Last Vital Signs Pulse 103 H 02/10/25 10:57 BP 106/60 02/10/25 10:57 Pulse Ox 97 02/10/25 10:57 Oxygen Delivery Method Room Air 02/10/25 10:57 BMI result Body Mass Index 25.7 Const Orientation/consciousness: patient oriented x3 HEENT Ears: hearing grossly normal bilaterally Neck Thyroid: Thyroid normal Lymphatic: no lymphadenopathy noted Resp Auscultation: clear to auscultation bilaterally Cardio Rate: regular rate Rhythm: regular rhythm Heart sounds: S1 normal heart sound present, S2 normal heart sound present and Murmur heart sound present Skin General skin exam: no rashes or lesions noted Neuro General: patient oriented x3, gait normal and no focal motor deficits Results AMB Hemoglobin A1c AMB Hemoglobin A1c 7.2 % Last Edit by BENITA Miranda on 02/10/25 11:14 Results Reviewed Results Reviewed: Laboratory Last Values Glucose (Clinic) 156 mg/dL (60-115) H 02/10/25 11:04 Laboratory Tests 11/13/24 11/19/24 01/13/25 07:43 12:38 10:29 Sodium 141 Potassium 4.1 Chloride 109 H Carbon Dioxide 24 Anion Gap 12 BUN 18 H Creatinine 1.06 Estimated GFR > 60 Glucose (Clinic) 110 Hgb A1c (Clinic) 8.0 H Triglycerides 54 Cholesterol 117 LDL Cholesterol, Calc 45 HDL Cholesterol 62 Assessment & Plan Assessment & Plan (1) Uncontrolled type 2 diabetes mellitus with hyperglycemia, with long-term current use of insulin: Code(s): E11.65 - Type 2 diabetes mellitus with hyperglycemia; Z79.4 - detention (current) use of insulin Category: Medical Plan: We will continue with the Lantus 25 units nightly. We will start Humalog 5 units with breakfast and dinner. He does have an upcoming appointment with diabetic Education. he will follow up in 3 months. Sooner if needed. Labs prior to appointment (2) Essential hypertension: Code(s): I10 - Essential (primary) hypertension Category: Medical Plan: WNL. Better than last time. Continue with the amlodipine 5 mg (3) Pure hypercholesterolemia: Code(s): E78.00 - Pure hypercholesterolemia, unspecified Category: Medical Plan: at goal. Continue current regimen of the atorvastatin 40 mg Orders: Orders Hemoglobin A1c Today E11.65 - Type 2 diabetes mellitus with hyperglycemia, E78.00 - Pure hypercholesterolemia, unspecified, I10 - Essential (primary) hypertension, R73.01 - Impaired fasting glucose, Z79.4 - terminal block assembler (current) use of insulin Microalbumin, Random (w Creat) Today E11.65 - Type 2 diabetes mellitus with hyperglycemia, E78.00 - Pure hypercholesterolemia, unspecified, I10 - Essential (primary) hypertension, Z79.4 - detention (current) use of insulin AMB Hemoglobin A1c Today E11.65 - Type 2 diabetes mellitus with hyperglycemia, Z13.9 - Encounter for screening, unspecified, Z79.4 - terminal block assembler (current) use of insulin Comprehensive [place]. Panel Fast Today E11.65 - Type 2 diabetes mellitus with hyperglycemia, E78.00 - Pure hypercholesterolemia, unspecified, I10 - Essential (primary) hypertension, Z79.4 - detention (current) use of insulin Lipid Panel Today E11.65 - Type 2 diabetes mellitus with hyperglycemia, E78.00 - Pure hypercholesterolemia, unspecified, I10 - Essential (primary) hypertension, Z79.4 - detention (current) use of insulin Medications: New insulin lispro (Humalog KwikPen (U-100) Insulin) with breakfast and dinner 5 units (0.05 mL) subcut BID 15 mL 1RF Coding Level of Care Code Est Pt Level 4 (20623) Complex EM visit Add On G2211 Diagnoses Uncontrolled type 2 diabetes mellitus with hyperglycemia, with long-term current use of insulin E11.65; Z79.4 Essential hypertension I10 Pure hypercholesterolemia E78.00
[2025-02-10 11:08] LABS: Glucose, Whole Blood 156 mg/dL (60-115)
--- OUTSIDE RECORDS SUMMARY | 2025-02-10 11:40 | XMS_ITS | Clinical Summary ---
Author Organization [facility] Address [address] [place] [address] Phone Care Team Providers Care Magnet Valve Assembler Name Role Phone Sheba Greco MD Primary Care Provider [phone] Allergies Active Allergy Reactions Criticality Noted Date [...] ACOSTARSE 270 tablet 11/03/19 25 025 Active Problems Problem Noted Date Diagnosed Date [...] toe 10/20/2016 Psoriasis 09/04/2012 Tobacco user 09/04/2012 Immunizations Immunization Administration Dates Next Due Influenza [...] Date Smoking Tobacco: Every Day Cigarettes 0.5 6.9 Started: 03/16/2018 Smokeless Tobacco: Never Tobacco Cessation:Ready [...] Upcoming Encounters Date Type Department Care Team (Latest Contact Info) Description 02/21/2025 Orders Only [facility] [address] [place] [phone] Kurt Carbajal MD [address] [address] Stage 3a chronic kidney disease (HCC); Type 2 diabetes mellitus with diabetic chronic kidney disease (HCC); Renal osteodystrophy 03/24/2025 1:30 PM EDT Office Visit [facility] [address] [place] [phone] Kurt Carbajal MD [address] [address] Health Maintenance Due Date Last Done [...] % PVNMA 09/07/2020 us [facility]version [facility] [id number] LICITED RESULTS Final Result PVNMA from Last 3 Months or Most Recently Relevant to Health Maintenance [id number] Medicaid ID Medicaid ID Arsen Uriarte ([id number]) Care Teams Magnet Valve Assembler Relationship Specialty Start Date End Date Sheba Greco MD [address] [place], [place] PCP - General 10/12/20
--- OUTSIDE RECORDS SUMMARY | 2025-02-10 11:40 | XMS_ITS | Encounter Summary ---
Author Organization [facility] Address [address] [facility] [address] [place] [address] Phone Care Team Providers Care International Accountant Name Role Phone Sheba Greco MD Primary Care Provider [phone] Encounter Details Date Type Department Care Team (Late st Contact Info) Description 02/20/2024 Office Communication [facility] [address] [facility] [address] [place] [address] Kurt Carbajal MD [address] [facility] [address] [place] [address] Social History Tobacco Use Types Packs/Day Years Used Date Smoking Tobacco: Every Day Cigarettes 0.5 6.9 Started: 03/16/2018 Smokeless Tobacco: Never Alcohol Use [...] Only [facility] [address] [place] [address] Kurt Carbajal MD [address] [facility] [address] [place] [address] Stage 3a chronic kidney disease (HCC); Type 2 diabetes mellitus with diabetic chronic kidney disease (HCC); Renal osteodystrophy 03/24/2025 1:30 PM EDT Office Visit [facility] [address] [place] [address] Kurt Carbajal MD [address] [facility] [address] [place] [phone] documented as of this encounter Visit Diagnoses Not on filedocumented in this encounter Care Teams International Accountant Relationship Specialty Start Date End Date Sheba Greco MD [address] [place], [place] PCP - General 10/12/20 documented as of this encounter
--- OUTSIDE RECORDS SUMMARY | 2025-02-10 11:40 | XMS_ITS | Encounter Summary ---
Author Organization [facility] Address [address] [facility] [address] [place] [address] Phone Care Team Providers Care Teasel Setter Name Role Phone Sheba Greco MD Primary Care Provider [phone] Encounter Details Date Type Department Care Team (Late st Contact Info) Description 04/24/2024 Office Communication [facility] [address] [place] [address] Kurt Carbajal MD [address] [address] Social History Tobacco Use [...] Only [facility] [address] [place] [address] Kurt Carbajal MD [address] [address] Stage 3a chronic kidney disease (HCC); Type 2 diabetes mellitus with diabetic chronic kidney disease (HCC); Renal osteodystrophy 03/24/2025 1:30 PM EDT Office Visit [facility] [address] [place] [phone] Kurt Carbajal MD [address] [facility] [address] [place] [address] documented as of this encounter Visit Diagnoses Not on filedocumented in this encounter Care Teams Teasel Setter Relationship Specialty Start Date End Date Sheba Greco MD [address] [place] PCP - General 10/12/20 documented as of this encounter
--- OUTSIDE RECORDS SUMMARY | 2025-02-10 11:40 | XMS_ITS | Patient Health Record ---
Author Organization [facility] Address [address] [place] [address] Care Team Providers Care Potato Picker Name Role Phone Sheba Greco Primary Care Provider Wil Sebastian Unavailable [phone] Allergies Allergen (clinical drug ingredient) Drug/Non Drug [...] Status Risk Notes Problem Colon cancer screening (454152470) Colon cancer screening (Z12.11) Active confirmed Problem Diverticulosis o f large intestine without perforation or abscess without bleeding (K57.30) Active confirmed Problem 820924789 Gastroesophageal reflux disease without esophagitis (K21.9) Active confirmed Problem [id number] History of White's esophagus (Z87.19) Active confirmed Plan Of Treatment Future Test Test Name Order Date UPPER GI ENDOSCOPY 03/29/2012 COLONOSCOPY 03/29/2012 COLONOSCOPY 09/21/2022 Insurance Providers Payer Name Payer Address Payer Phone Subscriber Number Group Number Insured Name Patient Relationship to Insured Coverage Start Date Coverage End Date [facility] [address] [address] [place] [address] [phone] [id number] [employer] Self - patient is the insured Medical (General) History Medical History History ICD Code IDDM HTN White's esophagus(small area) seen on an EGD prior to 2011 GERD--EGD was negative for esophagitis a nd White's in 2011 Denies SD,CVA, and renal disease Cardiac catheterizations-? results Negative screening colonoscopy in 2011 Asthma Surgical History Surgery Date(Month/Year) cholecystectomy penile prosthesis-01/2012
--- OUTSIDE RECORDS SUMMARY | 2025-02-10 11:40 | XMS_ITS | Clinical Summary ---
Author Organization [employer] Address [address] [place] [address] [address] [place] [address] Care Team Providers Care Medicinal Plant Picker Name Role Phone Unavailable Primary Care Provider [...] of 3) 03/26/2018 01/29/2018, 10/02 COVID-19 Vaccine ( season) 2024 09/07/2021, 01/06/2021 Influenza Vaccine (#1) [...]
--- OUTSIDE RECORDS SUMMARY | 2025-02-10 11:40 | XMS_ITS | Clinical Summary ---
Author Organization [address] [facility] Address [address] [place] [address] Phone Care Team Providers Care Manuscript Editor Name Role Phone Physician, Pcp Unknown Primary Care Provider Alicia vailable Encounters Date Type Department Care Team Description 2024 Lab Requisition [facility] - Main Lab [address] [facility] [place] [address] Kurt Velasquez MD Displacement of [...] LAB HEMETOLOGY METHOD 2024 1:55 PM EDT [facility] RBC 4.70 4.50 - 5.50 M/mcL LAB [facility] Hemoglobin 13.9 13.5 - 17.5 g/dL LAB HEMETOLOGY METHOD 2024 1[facility] Hematocrit 43.1 42.0 - 54.0 % LAB HEMETOLOGY METHOD 2024 1:[facility] MCV 92.7 79.0 - 98.0 FL LAB HEMETOLOGY METHOD 2024 1:[facility] MCH 29.9 27.0 - 32.0 pcg LAB HEMETOLOGY METHOD 2024 1:55 PM EDT [facility] MCHC 32.3 32.0 - 37.0 g/dL LAB HEMETOLOGY METHOD 2024 1:55 PM EDT [facility] RDW 13.7 11.0 - 15.0 % LAB HEMETOLOGY METHOD 2024 1:55 PM EDT [facility] Platelets 246 130 - 400 K/mcL LAB HEMETOLOGY METHOD 2024 1:55 PM EDT [facility] MPV 10.2 7.0 - 11.0 FL LAB HEMETOLOGY METHOD 2024 1:55 PM EDT [facility] NRBC 0.0 <1.0 % LAB HEMETOLOGY METHOD 2024 1:55 PM EDT [facility] NRBC Absolute 0.00 <0.10 K/mcL LAB HEMETOLOGY METHOD 2024 1:55 PM EDT [facility] Blood Venous blood specimen / Unknown 2024 10:05 AM EDT 2024 12:40 PM EDT Kutr Velasquez MD LAB BLOOD ORDERABLES [place] Result [facility] [address] [place] [address], from Last 3 Months Insurance MEDICAID - [place] [employer] MEDICARE Care Teams Manuscript Editor Relationship Specialty Start Date End Date Physician, Pcp Unknown PCP - General 12/11/24
--- OUTSIDE RECORDS SUMMARY | 2025-02-10 11:40 | XMS_ITS | Encounter Summary ---
Author Organization [employer] Address [address] [place] [address] Care Team Providers Care Carpenter'S Helper Name Role Phone Physician, Pcp Unknown Primary Care Provider Alicia vailable Encounter Details Date Type Department Care Team (Late st Contact Info) Description 2024 Lab Requisition [facility] - Main Lab [address] [facility] [place] [address] Kurt Velasquez MD [address] [facility] [address] [place] [address] Displacement of implanted penile prosthesis, [...] LAB HEMETOLOGY METHOD 2024 1:55 PM EDT [facility] RBC 4.70 4.50 - 5.50 M/[facility] LAB HEMETOLOGY METHOD 2024 1:55 PM EDT [facility] Hemoglobin 13.9 13.5 - 17.5 g/dL LAB HEMETOLOGY METHOD 2024 1:55 PM EDT [facility] Hematocrit 43.1 42.0 - 54.0 % LAB HEMETOLOGY METHOD 2024 1:55 PM EDT [facility] MCV 92.7 79.0 - 98.0 FL LAB HEMETOLOGY METHOD 2024 1:55 PM EDT [facility] MCH 29.9 27.0 - 32.0 pcg LAB HEMETOLOGY METHOD 2024 1:55 PM EDT [facility] MCHC 32.3 32.0 - 37.0 g/dL LAB HEMETOLOGY METHOD 2024 1:55 PM EDT [facility] RDW 13.7 11.0 - 15.0 % LAB HEMETOLOGY METHOD 2024 1:55 PM EDT [facility] Platelets 246 130 - 400 K/mcL LAB HEMETOLOGY METHOD 2024 1:55 PM EDT [facility] MPV 10.2 7.0 - 11.0 FL LAB HEMETOLOGY METHOD 2024 1:55 PM EDT [facility] NRBC 0.0 <1.0 % LAB HEMETOLOGY METHOD 2024 1:55 PM EDT [facility] NRBC Absolute 0.00 <0.10 K/mcL LAB HEMETOLOGY METHOD 2024 1:55 PM EDT [facility] Blood Venous blood specimen / Unknown 2024 10:05 AM EDT 2024 12:40 PM EDT us Kurt Velasquez MD LAB BLOOD ORDERABLES [place] Result [facility] [address] [place] [address], documented in this encounter Visit Diagnoses Diagnosis Displacement of implanted penile prosthesis, subsequent encounter Urinary tract infection, site not specified documented in this encounter Care Teams Carpenter'S Helper Relationship Specialty Start Date End Date Physician, Pcp Unknown PCP - General 12/11/24 documented as of this encounter
== END 2025-02-10 11:22 | disposition home or self-care (01) ==
LOC: HO.ENCR 10:55
PROVIDERS: PCP Internal Medicine; Visit Provider Physician Assistant
DX: E11.65 Type 2 diabetes mellitus with hyperglycemia (principal); Z79.4 Long term (current) use of insulin; I10 Essential (primary) hypertension; E78.00 Pure hypercholesterolemia, unspecified; Z13.9 Encounter for screening, unspecified

== ENCOUNTER → 2025-02-10 10:54 | Outpatient (BNVA) | payer OTHER, SELFPAY | PROVIDERS: PCP Internal Medicine; Visit Provider Physician Assistant | DX: E11.65 Type 2 diabetes mellitus with hyperglycemia (principal); E78.00 Pure hypercholesterolemia, unspecified; I10 Essential (primary) hypertension; Z79.4 Long term (current) use of insulin | CPT/HCPCS: 82947; 83036; 99212 ==

== ENCOUNTER 2025-03-13 07:42 | Outpatient (AMB) | payer OTHER, SELFPAY ==
--- OUTSIDE RECORDS SUMMARY | 2025-03-13 07:45 | XMS_ITS | Clinical Summary ---
Author Organization [address] [facility] Address [address] [place] [phone] Phone Care Team Providers Care Flanger Name Role Phone Physician, Pcp Unknown Primary Care Provider Alicia vailable Social History Tobacco Use Types Packs/Day Years [...] on patient's age to complete this topic Insurance MEDICAID - [place] [employer] MEDICARE Care Teams Flanger Relationship Specialty Start Date End Date Physician, Pcp Unknown PCP - General 12/11/24
--- NOTE | 2025-03-13 07:59 | A.OFFVIS_ITS ---
Vital Signs 03/13/25 08:07 Height 5 ft 7 in Weight 160 lb 14.999 oz BMI 25.2 BP 132/70 Blood Pressure Location Lt brachial Position Sitting Pulse 86 Pulse Source Pulse Oximeter Pulse Oximetry (%) 97 Oxygen Delivery Method Room Air Intake Visit Reasons: cortisone shot shoulder/back Intake Note: Patient presents for Cortisone injection on shoulder/back. Booking Agent Required: Yes Booking Agent Language: Recoil Spring Winder Services: Booking Agent Present Booking Agent Name: [id number] Information Interpreted: non-clinical & clinical Allergies doxycycline Allergy (Intermediate, Verified 03/13/25 08:06) Itching levofloxacin Allergy (Intermediate, Verified 03/13/25 08:06) Itching metformin Allergy (Intermediate, Verified 03/13/25 08:06) diarrhea morphine [MORPHINE] Allergy (Intermediate, Verified 03/13/25 08:06) ITCHING tetracycline Allergy (Intermediate, Verified 03/13/25 08:06) Itching cefazolin Adverse Reaction (Mild, Verified 03/13/25 08:06) Diarrhea, itchy Medication List - Last Reconciled 03/13/25 by Ashlie Ramirez MD acetaminophen (Tylenol) 650 mg (2 x 325 mg) PO Q4H PRN albuterol sulfate 2.5 mg (3 mL) inhalation Q6H PRN 30 days amlodipine 5 mg PO DAILY 90 days apremilast (Otezla) 30 mg PO BID aspirin 81 mg PO DAILY atorvastatin 40 mg PO BEDTIME 90 days blood sugar diagnostic (OneTouch Verio test strips) Use 3 times a day to test BG daily for 30 days blood-glucose sensor (Sonora Leather G7 Sensor device) Use daily As directed to monitor glucose. change q 10 days cholecalciferol (vitamin D3) 25 mcg PO DAILY 90 days cholestyramine (with sugar) 4 gram 4 grams PO BID 30 days clotrimazole-betamethasone 1-0.05 % 1 appl topical BID [diabetic shoes and inserts As directed] fluticasone propion-salmeterol 500-50 mcg/dose (Wixela Inhub) 1 inh PO BID 90 days gabapentin 600 mg (2 x 300 mg) PO DAILY 90 days glucose (Dex4 Glucose) 16 grams (4 x 4 gram) PO Q15M PRN insulin glargine (Lantus Solostar U-100 Insulin) 25 units (0.25 mL) subcut QPM 90 days insulin lispro (Humalog KwikPen (U-100) Insulin) 5 units (0.05 mL) subcut BID ipratropium-albuterol 0.5 mg-3 mg(2.5 mg base)/3 mL 3 mL inhalation Q6H PRN 30 days ipratropium-albuterol 20-100 mcg/actuation (Combivent Respimat) 1 puff inhalation Q6H PRN 30 days lancets (Finsphereuch Delica Plus Lancet) CHECK BY FINGER STICK ROUTE 4 TIMES EVERY DAY lancets (Taxizu Safety Lancets) As directed TID nebulizers (AeroEclipse II Nebulizer) As directed nicotine 1 patch transdermal DAILY 28 days omeprazole 20 mg PO BID [oneBoomdizzle Networksuch glucometer As directed] pen needle, diabetic (BD Ultra-Fine Short Pen Needle) As directed daily with Lantus pramipexole 0.125 mg PO BEDTIME 90 days sodium polystyrene sulfonate 15 grams PO BID 30 days tamsulosin 0.4 mg PO DAILY triamcinolone acetonide 0.1% 1 appl topical BID 1 week Ventolin HFA 90 mcg/actuation (albuterol sulfate) 2 puffs inhalation Q6H PRN 30 days NS zolpidem 10 mg PO BEDTIME 30 days HPI Comments Details: Patient is a 74-year-old male current everyday smoker with asthma, hypertension complicated by retinopathy, hyperlipidemia, diabetes complicated by CKD stage 3, BPH, psoriasis and polyarticular osteoarthritis here today for follow up Interval History: Patient last seen 12/07/[address] Loaiza. At that time he was following up for his psoriasis and joint pain. He was previously on methotrexate but this was discontinued as there was no evidence of inflammatory arthritis. He remains on Otezla which is prescribed by his owner for psoriasis. He also complained of left 2nd and 3rd trigger fingers which were injected in 12/2022 with resolution. Despite the recurrence he opted to wear finger splint instead of getting further injections. He also was following up for his rotator cuff impingement of his right shoulder which was injected 07/2023 with improvement. Given that he did not have any active psoriatic arthritis follow up was PRN Today, He is here requesting right shoulder injection Rheumatologic History: Initially thought to have psoriatic arthritis and was started on methotrexate. He was only on methotrexate for 2 months and had complete remission of his symptoms. His methotrexate was stopped and there was no further recurrence of inflammatory arthritis. His joint pain was subsequently attributed to polyarticular osteoarthritis. Initial history: This is a 72-year-old male with a past medical history of psoriasis presents for evaluation of multiple joint pain. Three months ago patient started having locking of his left index and middle fingers. Over the last 3 weeks he has been having pain in his right wrist. The pain is worse at night associated with swelling and morning stiffness. He takes Tylenol without relief. States that he has had psoriasis for many years, at least 10 years. Was started on Otezla by Dermatology about a year ago. He denies any back pain. Current Rheumatology Medication(s): Otezla 30mg bid (prescribed by derm) [facility] Medical History CKD stage 3 due to type 2 diabetes mellitus Hypertensive retinopathy Nicotine dependence, cigarettes, uncomplicated Tubular adenoma of colon Restless leg syndrome Mild persistent asthma Diabetes mellitus, with long-term current use of insulin Pure hypercholesterolemia GERD (gastroesophageal reflux disease) Precordial chest pain Essential hypertension Non-rheumatic aortic stenosis Loss of hearing Anemia Asthma Surgical History History of esophagogastroduodenoscopy (EGD) History of colonoscopy (~11/09/22) History of cholecystectomy History of implantation of penile prosthesis Family History Father No problems noted. Mother No problems noted. Family/Other FH: mental illness Brother In good health Sister In good health Son In good health Daughter In good health Other Mental health disorder Social History Household Members: None Housing: Apartment Do you presently have visiting nurse or other home services: No Alcohol intake: current Alcohol intake frequency: holidays/special occasions only Alcohol type: hard liquor Patient Tobacco Use Status: Current everyday Tobacco user Tobacco use type: Cigarette Cigarettes Per Day: 10 e-Cigarette/Vaping Use: Never Used Second Hand Smoke Exposure: No service: No Current occupational status: disabled Cognitive needs: No Hearing needs: No Vision needs: Yes Review of Systems Const Details: Review of Systems Constitutional: Denies fever, chills, weight loss ENT: Denies vision changes, eye pain or eye redness, dental caries, dry mouth GI: Denies nausea, vomiting, diarrhea, abdominal pain, change in BM Pulm: Denies SOB, MARKS, hemoptysis, wheezing Cards: Denies chest pain, palpitations Skin: Denies Raynaud's, rash, nail changes, photosensitivity, [employer]: Denies headaches, weakness, paresthesias, recurrent falls MSK: as per HPI All other systems reviewed and are unremarkable except noted above Physical Exam Vital Signs: Last Vital Signs Pulse 86 03/13/25 08:07 BP 132/70 03/13/25 08:07 Pulse Ox 97 03/13/25 08:07 Oxygen Delivery Method Room Air 03/13/25 08:07 BMI result Body Mass Index 25.2 Vital signs reviewed Physical Examination CONSTITUITIONAL Patient alert and cooperative. Well appearing and in no apparent painful distress HEENT Conjunctiva and sclera clear. ?Pupils equal round and reactive to light. ?No lymphadenopathy. ? CHEST/RESPIRATORY SYSTEM Normal respiratory effort and able to speak in complete sentences. ?Clear to auscultation bilaterally. ?No crackles, rales, rhonchi, wheezes heard. CARDIAC SYSTEM Regular rate and rhythm. ?S1 and S2 heard no murmurs. ?Radial pulses intact bilaterally MSK Hands: ?Able to make a fist. No synovitis noted to the MCPs, PIPs or DIPs. ?No tenderness to palpation of these joints. Herbeden's nodes noted. Fibrotic A1 bridget noted over the 2nd and 3rd Oleary MCPs of the right hand. Wrists: ?Full range of motion at the wrists without pain. ?No tenderness to palpation or synovitis noted to the wrists. Elbows: Full range of motion without pain. No tenderness, weakness, swelling, increased warmth or erythema. Shoulders: Right shoulder with decreased range of motion and tenderness to palpation of the subacromial bursa Knees: ?Full range of motion. ?No tenderness, swelling, increased warmth or erythema.? Ankles: Full range of motion. ?No tenderness, swelling, increased warmth or erythema.? Feet: ?Negative squeeze test. ?No tenderness to palpation or swelling of the MTPs. Tender points:?No tenderness to palpation of the bilateral trapezius, supraspinatus, greater trochanters, anterior costochondral junctions, bilateral gluteal areas, bilateral suboccipital muscle insertions SKIN Skin intact without rashes. Office Procedures AMB Joint Injection/Aspiration Joint Injection/Aspiration Details: Procedure was explained to the patient and consent was obtained. ? The area of interest was identified and confirmed with patient. ?This was subsequently cleaned with chlorhexidine x3. ? The area was then anesthetized using ethyl chloride spray. 40 mg Kenalog with 1 cc 1% lidocaine was injected without issue. ?Minimal to no bleeding. ?Patient tolerated procedure. Primary Site: right shoulder Prep: site was prepped using aseptic technique and ethochloride spray was applied Injected: 40 mg of, Kenalog, 1% plain lidocaine and in the subcromial space Procedure: The patient tolerated the procedure well Coding 60638 - Large joint Procedure code (CPT) selection complete Office Meds lidocaine (PF) 10 mg/mL (1 %) injection solution Performing Provider: Ashlie Ramirez MD Performing Location: [facility] [place] Rheumatology Administered by: Ashlie Ramirez MD on 03/13/25 08:47 Dose Route Admin Location Dispensed Lot Number Expiration Date [facility] Planning Supervisor 1 mL Infiltration right shoulder 2 mL [id number] 11/30/26 29801-477-20 [facility] Kenalog 40 mg/mL suspension for injection Performing Provider: Ashlie Ramirez MD Performing Location: [facility] [place] Rheumatology Administered by: Ashlie Ramirez MD on 03/13/25 08:47 Dose Route Admin Location Dispensed Lot Number Expiration Date [facility] Planning Supervisor 40 mg intra-articular right shoulder 1 mL [id number] 12/31/25 [address]-6 [facility] Results Reviewed Results Reviewed: Laboratory Tests 05/09/24 07/22/24 11/13/24 14:35 07:35 07:43 WBC 9.1 RBC 4.72 Hgb 13.9 L Hct 42.2 Plt Count 231 ESR 20 H Sodium 141 Potassium 4.1 Chloride 109 H Carbon Dioxide 24 BUN 18 H Creatinine 1.06 AST 24 39 H ALT 27 49 H 25-OH Vitamin D Total 33.0 29.6 L XR Right Shoulder 06/2023 FINDINGS: Bony alignment and mineralization are normal. The glenohumeral joint is intact and shows mild peripheral osteophyte formation. The acromioclavicular and coracoclavicular intervals are normal. There is cortical irregularity of the greater tuberosity of the proximal right humerus. No fracture or dislocation is seen. There is no soft tissue calcification or foreign body. No right pneumothorax is seen. IMPRESSION: 1. No fracture or dislocation is seen. 2. There is mild osteoarthritic change of the right glenohumeral joint. 3. Findings are consistent with right rotator cuff impingement. No jessica calcific tendinitis is noted. Assessment & Plan Assessment & Plan (1) Psoriatic arthritis: Code(s): L40.50 - Arthropathic psoriasis, unspecified Category: Medical Plan: #PsO Patient is a 74-year-old current everyday smoker here today for. Known history of psoriasis Otezla. Previously thought to have breakthrough psoriatic arthritis however it was then attributed to likely polyarticular osteoarthritis. Continue to monitor off of methotrexate Plan - No additional DMARDs needed - RTC prn (2) Rotator cuff arthropathy of right shoulder: Code(s): M12.811 - Other specific arthropathies, not elsewhere classified, right shoulder Category: Medical Plan: #Right shoulder RTC Patient with known calcific tendonitis and rotator cuff pathology. Previously got steroid injection in 2022 with improvement. Requesting steroid injection today and it was administered. Plan I spent 20 minutes reviewing the record and labs, taking a history, examining the patient, discussing the treatment plan, ordering diagnostic work up and docu menting in the medical record Orders: Orders AMB Joint Injection/Aspiration Today M12.811 - Other specific arthropathies, not elsewhere classified, right shoulder Medications: New Kenalog (triamcinolone acetonide) 40 mg intra-articular ONCE 1 mL 0RF NS M12.811 - Other specific arthropathies, not elsewhere classified, right shoulder lidocaine (PF) 1 mL Infiltration ONCE 2 mL 0RF M12.811 - Other specific arthropathies, not elsewhere classified, right shoulder Coding Level of Care Code Est Pt Level 3 (31115) Diagnoses Psoriatic arthritis L40.50 Rotator cuff arthropathy of right shoulder M12.811 CPT Codes Coding - Large joint: 07127 - Large joint ([id number])
[2025-03-13 08:07] VITALS: BP 132/70; PULSE 86; O2SAT 97; BMI 25.2
== END 2025-03-13 08:41 | disposition home or self-care (01) ==
LOC: HO.RHE 07:43
PROVIDERS: PCP Internal Medicine; Visit Provider Student in an Organized Health Care Education/Training Program
DX: L40.50 Arthropathic psoriasis, unspecified (principal); M12.811 Other specific arthropathies, not elsewhere classified, right shoulder
CPT/HCPCS: 20610; 99213

== ENCOUNTER → 2025-03-13 07:42 | Outpatient (BNVA) | payer OTHER, SELFPAY | PROVIDERS: PCP Internal Medicine; Visit Provider Student in an Organized Health Care Education/Training Program | DX: L40.50 Arthropathic psoriasis, unspecified (principal); M12.811 Other specific arthropathies, not elsewhere classified, right shoulder | CPT/HCPCS: 20610; 99212; J3300 ==

== ENCOUNTER 2025-03-26 10:28 | Outpatient (AMB) | payer OTHER, SELFPAY ==
--- NOTE | 2025-03-26 10:56 | A.OFFVIS_ITS ---
Intake Intake Visit Reasons: 60 min Manager Environmental Health And Safety Required: Yes Manager Environmental Health And Safety Language: Gold And Silver Assayer Name: [id number] Accompanied by: Self / Same As Patient Allergies doxycycline Allergy (Intermediate, Verified 03/13/25 08:06) Itching levofloxacin Allergy (Intermediate, Verified 03/13/25 08:06) Itching metformin Allergy (Intermediate, Verified 03/13/25 08:06) diarrhea morphine (MORPHINE) Allergy (Intermediate, Verified 03/13/25 08:06) ITCHING tetracycline Allergy (Intermediate, Verified 03/13/25 08:06) Itching cefazolin Adverse Reaction (Mild, Verified 03/13/25 08:06) Diarrhea, itchy PFSH Medical History CKD stage 3 due to type 2 diabetes mellitus Hypertensive retinopathy Nicotine dependence, cigarettes, uncomplicated Tubular adenoma of colon Restless leg syndrome Mild persistent asthma Diabetes mellitus, with long-term current use of insulin Pure hypercholesterolemia GERD (gastroesophageal reflux disease) Precordial chest pain Essential hypertension Non-rheumatic aortic stenosis Loss of hearing Anemia Asthma Surgical History History of esophagogastroduodenoscopy (EGD) History of colonoscopy (~11/09/22) History of cholecystectomy History of implantation of penile prosthesis Family History Father No problems noted. Mother No problems noted. Family/Other FH: mental illness Brother In good health Sister In good health Son In good health Daughter In good health Other Mental health disorder Social History Household Members: None Housing: Apartment Do you presently have visiting nurse or other home services: No Alcohol intake: current Alcohol intake frequency: holidays/special occasions only Alcohol type: hard liquor Patient Tobacco Use Status: Current everyday Tobacco user Tobacco use type: Cigarette Cigarettes Per Day: 10 e-Cigarette/Vaping Use: Never Used Second Hand Smoke Exposure: No service: No Current occupational status: disabled Cognitive needs: No Hearing needs: No Vision needs: Yes Assessment & Plan Assessment & Plan (1) Uncontrolled type 2 diabetes mellitus with hyperglycemia, with long-term current use of insulin: Code(s): E11.65 - Type 2 diabetes mellitus with hyperglycemia; Z79.4 - exterminator (current) use of insulin Plan: Learning objectives: The patient was provided with verbal and written education on the following topics as outlined below. The patient met all learning objectives and was able to verbalize understanding and provide teach back of education topics discussed . The patient was provided with the opportunity to ask questions and all questions were answered. Patient Assessment Assess patient education level/literacy/barriers, patient's last A1c on 02/10/2025 7.4% Patient reports he does not want to continue using Dexcom G7, he finds the alerts overwhelming. At last visit we turned off all alerts except low alert, when I checked instructor adjunct pharmacy technician they had been turned back on. Turned all but low alert off again. Patient has not started Humalog 5 meals before breakfast and lunch, called pharmacy to see if patient had picked up Humalog, because he could not remember. Pharmacy said the prescription was picked up on 02/12/25. Instructed patient to begin Humalog 5 units 15 minutes prior to meals Reduce Lantus to 25 units daily, patient had reported he was taking Lantus 35 units daily Hypoglycemia or blood glucose under 70 mg/dL use the rule of 15's: If you have your blood glucose meter test your blood glucose, if you do not have your meter still follow below instruction: Keep quick-sugar foods with you at all times.? Take 15 grams of fast acting carbohydrates. Examples are 4 ounces of fruit juice or regular soda pop, 8 ounces fat-free milk, 1 tablespoon of table sugar, honey or corn syrup, jam, one miniature box of raisins, 7-8 gumdrops or Life Savers candy, 4 glucose tablets, and glucose gel.? Retest blood glucose in 15 minutes, if blood glucose is still under 80 mg/dL,repeat rule of 15's. If blood glucose is under 50, take 30 grams of fast acting carbohydrates If you are having hypoglycemia, or insulin reaction, more that a few times a week, call MD or cover stripper What is Diabetes? Pathophysiology How the body produces and uses insulin Identify type of DM Risk factors Signs of Diabetes Brief overview of Diabetes Management Monitoring blood sugar Following a meal plan Regular exercise Maintaining a healthy weight Taking medication as needed Members of the care team (PCP, RN, MA, RD, CDE, permit specialist) Blood glucose monitoring When/how often to test Target blood sugar ranges Introduction to Nutrition Importance of healthy diet in managing DM Diet is personalized to individual preference Review patient?s regular diet/food preferences Who prepares meals/does food shopping/ Dining out?/ Barriers? How diet effects glucose Eating 3 balanced meals a day with small, healthy snacks between meals Review food groups Carbohydrates: What is a carbohydrate/Which food/food groups are considered carbohydrates Effect of carbohydrates on blood glucose Portion sizes Reading food labels Basic carb counting (if applicable per nursing assessment) Plate method Meal planning Recommendations: Follow plate method, consistent carbs and read nutritional labels. Smart Goal: Patient will identify foods in current meal plan that contain carbohydrates Educational Materials: The patient was provided with the following written educational materials: Planning Healthy Meals, Target goals Handout Patient Response to instructions: Comprehension of Instructions: Fair Readiness to make changes: Contemplation How confident they feel about making changes: Positive Portions of this note were created using voice recognition software, please excuse any words or phrases that may have been misinterpreted. Patient Instructions: Incluir actividad diaria regular. ADA recomienda 30 minutos de ejercicio 5 d?as a la semana. P?rdida de peso, hable con el PCP o el cardi?logo antes de comenzar un nuevo plan. Mida el nivel de az?car en la ashley seg?n las indicaciones; Ayuno y comida m?s rohith de 2hpp. Observe las tendencias en los resultados. Utilice los resultados y eval?e c?mo los alimentos, la actividad f?rosa y los medicamentos afectan los resultados de az?car en la ashley. Lleve el gluc?metro o CGM a la pr?xima visita. Conocer los medicamentos para la diabetes, enrique acci?n, los efectos secundarios, la eficacia, la toxicidad, la dosis prescrita, el momento y la frecuencia de administraci?n apropiados, el efecto de las dosis olvidadas y retrasadas y las instrucciones de almacenamiento, viaje y seguridad. T?cnicas de resoluci?n de problemas para el seguimiento de episodios de hipo/hiperglucemia y tratamientos. Reducir los comportamientos de reducci?n de riesgos, dejar de fumar, ex?menes regulares de ojos, pies y dentales. Coding Level of Care Code Est Pt Level 1 (26572) Diagnoses Uncontrolled type 2 diabetes mellitus with hyperglycemia, with long-term current use of insulin E11.65; Z79.4
--- OUTSIDE RECORDS SUMMARY | 2025-03-26 12:16 | XMS_ITS | Clinical Summary ---
Author Organization [facility] Address [address] [place] [phone] Phone Care Team Providers Care Bituminous Distributor Operator Name Role Phone Physician, Pcp Unknown [...] - [place] [employer] [place] Care Teams Bituminous Distributor Operator Relationship Specialty Start Date End Date Physician, Pcp Unknown PCP - General 12/11/24
== END 2025-03-26 11:07 | disposition home or self-care (01) ==
LOC: HO.ENCR 10:28
PROVIDERS: PCP Internal Medicine; Visit Provider Registered Nurse Diabetes Educator
DX: E11.65 Type 2 diabetes mellitus with hyperglycemia (principal); Z79.4 Long term (current) use of insulin

== ENCOUNTER → 2025-03-26 10:28 | Outpatient (BNVA) | payer OTHER, SELFPAY | PROVIDERS: PCP Internal Medicine; Visit Provider Registered Nurse Diabetes Educator | DX: E11.65 Type 2 diabetes mellitus with hyperglycemia (principal); Z79.4 Long term (current) use of insulin | CPT/HCPCS: 99211 ==

== ENCOUNTER 2025-04-09 07:37 | Outpatient (AMB) | payer OTHER, SELFPAY ==
--- OUTSIDE RECORDS SUMMARY | 2025-04-09 07:39 | XMS_ITS | Encounter Summary ---
Author Organization [facility] Address [address] [address] [place] [address] Phone Care Team Providers Care Hat Brim Curler Name Role Phone Sheba Greco MD Primary Care Provider [phone] Reason for Visit * Reason Comments Med Refill Encounter Details Date Type Department Care Team (Late Contact Info) Description 04/06/2025 Refill [facility] [address] [facility] [address] [place] [address] Kurt Carbajal MD [address] [address] Social History Tobacco Use Types Packs/Day Years Used Date Smoking Tobacco: Every Day Cigarettes 0.5 7.1 Started: 03/16/2018 Smokeless Tobacco: Never Alcohol Use [...] Care Team (Late st Contact Info) Description 04/21/2025 2:30 PM EDT Office Visit [facility] [address] [place] [address] Kurt Carbajal MD [address] [address] documented as of this encounter Visit Diagnoses Not on filedocumented in this encounter Care Teams Hat Brim Curler Relationship Specialty Start Date End Date Sheba Greco MD [address] [place], [place] PCP - General 10/12/20 documented as of this encounter
--- OUTSIDE RECORDS SUMMARY | 2025-04-09 07:39 | XMS_ITS | Clinical Summary ---
Author Organization [employer] Address [address] [place] [address] [address] [place] [address] Care Team Providers Care Real Estate Director Name Role Phone Unavailable Primary Care Provider Unavailabl e Immunizations Immunization Administration Dates Next Due Influenza High-dose Quadriva [...] season) 2024 09/07/2021, 01/06/2021 Influenza Vaccine (#1) 2025 3, 06/28/2022, 06/02/2022, Additional history exists DTaP/Tdap/Td [...]
--- OUTSIDE RECORDS SUMMARY | 2025-04-09 07:39 | XMS_ITS | Clinical Summary ---
Author Organization [address] [facility] Address [address] [place] [phone] Phone Care Team Providers Care Tree Climber Name Role Phone Physician, Pcp Unknown Primary [...] Influencers of Health Screening 2024 Influenza Vaccine (#1) 2025 RSV Immunization Adult Patie nts (1 [...] - [place] [employer] [place] Care Teams Tree Climber Relationship Specialty Start Date End Date Physician, Pcp Unknown PCP - General 12/11/24
--- OUTSIDE RECORDS SUMMARY | 2025-04-09 07:39 | XMS_ITS | Patient Health Record ---
Author Organization [facility] Address [address] [place] [address] Care Team Providers Care Noodle Maker Name Role Phone Sheba Greco Primary Care Provider Wil Sebastian Unavailable [phone] Allergies Allergen (clinical drug ingredient) Drug/Non Drug [...] Status Risk Notes Problem Colon cancer screening (209485315) Colon cancer screening (Z12.11) Active confirmed Problem Diverticulosis o f large intestine without perforation or abscess without bleeding (K57.30) Active confirmed Problem 017337452 Gastroesophageal reflux disease without esophagitis (K21.9) Active confirmed Problem [id number] History of White's esophagus (Z87.19) Active confirmed Plan Of Treatment Future Test Test Name Order Date UPPER GI ENDOSCOPY 03/29/2012 COLONOSCOPY 03/29/2012 COLONOSCOPY 09/21/2022 Insurance Providers Payer Name Payer Address Payer Phone Subscriber Number Group Number Insured Name Patient Relationship to Insured Coverage Start Date Coverage End Date [facility] [address] [address] [place] [address] [id number] FOREIGN ORTA Self - patient is the insured Medical (General) History Medical History History ICD Code IDDM HTN White's esophagus(small area) seen on an EGD prior to 2011 GERD--EGD was negative for esophagitis a nd White's in [address],CVA, and renal disease Cardiac catheterizations-? results Negative screening colonoscopy in 2011 Asthma Surgical History Surgery Date(Month/Year) cholecystectomy penile prosthesis-01/2012
--- NOTE | 2025-04-09 07:55 | A.OFFPC_ITS ---
Vital Signs 04/09/25 07:56 Height 5 ft 7 in Weight 158 lb BMI 24.7 BP 130/64 Blood Pressure Location Lt brachial Position Sitting Intake Visit Reasons: 4mth f/u - see comments Intake Note: Patient here for a 4 month follow up Director Clinical Research Required: No Accompanied by: Self / Same As Patient Allergies doxycycline Allergy (Intermediate, Verified 04/09/25 08:20) Itching levofloxacin Allergy (Intermediate, Verified 04/09/25 08:20) Itching metformin Allergy (Intermediate, Verified 04/09/25 08:20) diarrhea morphine (MORPHINE) Allergy (Intermediate, Verified 04/09/25 08:20) ITCHING tetracycline Allergy (Intermediate, Verified 04/09/25 08:20) Itching cefazolin Adverse Reaction (Mild, Verified 04/09/25 08:20) Diarrhea, itchy Medication List - Last Reconciled 04/09/25 by Sheba Corbett MD acetaminophen (Tylenol) 650 mg (2 x 325 mg) PO Q4H PRN albuterol sulfate 2.5 mg (3 mL) inhalation Q6H PRN 30 days amlodipine 5 mg PO DAILY 90 days apremilast (Otezla) 30 mg PO BID aspirin 81 mg PO DAILY atorvastatin 40 mg PO BEDTIME 90 days blood sugar diagnostic (OneTouch Verio test strips) Use 3 times a day to test BG daily for 30 days blood-glucose sensor (Finisar G7 Sensor device) Use daily As directed to monitor glucose. change q 10 days cholecalciferol (vitamin D3) 25 mcg PO DAILY 90 days cholestyramine (with sugar) 4 gram 4 grams PO BID 30 days clotrimazole-betamethasone 1-0.05 % 1 appl topical BID [diabetic shoes and inserts As directed] fluticasone propion-salmeterol 500-50 mcg/dose (Wixela Inhub) 1 inh PO BID 90 days gabapentin 600 mg (2 x 300 mg) PO DAILY 90 days glucose (Dex4 Glucose) 16 grams (4 x 4 gram) PO Q15M PRN insulin glargine (Lantus Solostar U-100 Insulin) 25 units (0.25 mL) subcut QPM 90 days insulin lispro (Humalog KwikPen (U-100) Insulin) 5 units (0.05 mL) subcut BID ipratropium-albuterol 0.5 mg-3 mg(2.5 mg base)/3 mL 3 mL inhalation Q6H PRN 30 days ipratropium-albuterol 20-100 mcg/actuation (Combivent Respimat) 1 puff inhalation Q6H PRN 30 days lancets (Collax Delica Plus Lancet) CHECK BY FINGER STICK ROUTE 4 TIMES EVERY DAY lancets (TruTag Technologiesuch Safety Lancets) As directed TID nebulizers (AeroEclipse II Nebulizer) As directed nicotine 1 patch transdermal DAILY 28 days omeprazole 20 mg PO BID [TuneInuch glucometer As directed] pen needle, diabetic (BD Ultra-Fine Short Pen Needle) As directed daily with Lantus pramipexole 0.125 mg PO BEDTIME 90 days sodium polystyrene sulfonate 15 grams PO BID 30 days tamsulosin 0.4 mg PO DAILY triamcinolone acetonide 0.1% 1 appl topical BID 1 week Ventolin HFA 90 mcg/actuation (albuterol sulfate) 2 puffs inhalation Q6H PRN 30 days NS zolpidem 10 mg PO BEDTIME 30 days Tobacco use date assessed: 11/19/24 Dental Screening Dental Screen Date: 11/19/24 HPI HPI Comments History of Present Illness Details This is a 74-year-old male with diabetes mellitus type 2 with long-term current use of insulin, hypertension, pure hypercholesterolemia, psoriatic arthritis and COPD that comes today complaining of right hand pain and weakness that started few weeks ago and would like to see ortho. Also complains of left rib pain that started 2 weeks ago on will have x-ray. Last A1c done in January was 7.2% which has markedly improved. Start taking Trulicity due to weight loss and he does follows with endocrinology. Blood pressure stable. Lipid panel will be order and LDL goal should be less than 70. On Otezla for psoriatic arthritis and this is follow by Dermatology. Has COPD and lung cancer screening was done last year which was benign. Well controlled with Wixela but will be referred to pulmonology. [facility] Medical History (Updated 04/09/25 @ 08:35 by Sheba Corbett MD) CKD stage 3 due to type 2 diabetes mellitus Hypertensive retinopathy Nicotine dependence, cigarettes, uncomplicated Tubular adenoma of colon Restless leg syndrome Mild persistent asthma Diabetes mellitus, with long-term current use of insulin Pure hypercholesterolemia GERD (gastroesophageal reflux disease) Precordial chest pain Essential hypertension Non-rheumatic aortic stenosis Loss of hearing Anemia Asthma Surgical History History of esophagogastroduodenoscopy (EGD) History of colonoscopy (~11/09/22) History of cholecystectomy History of implantation of penile prosthesis Family History Father No problems noted. Mother No problems noted. Family/Other FH: mental illness Brother In good health Sister In good health Son In good health Daughter In good health Other Mental health disorder Social History Household Members: None Housing: Apartment Do you presently have visiting nurse or other home services: No Alcohol intake: current Alcohol intake frequency: holidays/special occasions only Alcohol type: hard liquor Patient Tobacco Use Status: Current everyday Tobacco user Tobacco use type: Cigarette Cigarettes Per Day: 10 e-Cigarette/Vaping Use: Never Used Second Hand Smoke Exposure: No service: No Current occupational status: disabled Cognitive needs: No Hearing needs: No Vision needs: Yes Questionnaire PHQ-9 Over the last 2 weeks, how often have you been bothered by any of the following problems? 1. Little interest or pleasure in doing things: not at all 2. Feeling down, depressed, or hopeless: not at all 3. Trouble falling or staying asleep, or sleeping too much: not at all 4. Feeling tired or having little energy: not at all 5. Poor appetite or overeating: not at all 6. Feeling bad about yourself - or that you are a failure or have let yourself or your family down: not at all 7. Trouble concentrating on things, such as reading the newspaper or watching television: not at all 8. Moving or speaking so slowly that other people could have noticed. Or the opposite - being so fidgety or restless that you have been moving around a lot more than usual: not at all 9. Thoughts that you would be better off or of hurting yourself in some way: not at all Total score: 0 Depression Screening Interpretation: Negative Depression Screening Done: Yes 10408 - PHQ-9 Billing: Yes Source: Developed by Drs. Wil Cummings, Benjy Linda and colleagues, with an educational champ from [employer]. Thrive Questionnaire Date Thrive assessed: 04/09/25 I am a: Patient What is your living situation today?: I have a steady place to live Within the past 12 months, did the food you bought not last and you didn't have the money to get more?: Never true Within the past 12 months, did you worry whether your food would run out before you got money to buy more?: Never true Do you have trouble paying for medicines?: No Do you have trouble getting transportation to medical appointments?: No Do you have trouble paying your heating and electricity bill?: No Do you have trouble taking care of your child, family member or friend?: No Do you have trouble with day-to-day activities such as bathing, preparing meals, shopping, managing finances, etc.?: No Are you currently unemployed and looking for a job?: No Are you interested in more education?: No Please select the resources that you would like help with: None Currently or been in a relationship where the following occur: No concerns reported THRIVE Score: 0 AUDIT C Alcohol Use Questionnaire (AUDIT-C) 1. How often do you have a drink containing alcohol?: Never Total Score: 0 HENRIETTA-7 AMB Questionnaire HENRIETTA-7 Date HENRIETTA - 7 assessed: 04/09/25 Feeling nervous, anxious, or on edge: 0 = Not at all Not being able to stop or control worryin = Not at all Worrying too much about different things: 0 = Not at all Trouble relaxin = Not at all Being so restless that it is hard to sit still: 0 = Not at all Becoming easily annoyed or irritable: 0 = Not at all Feeling afraid as if something awful might happen: 0 = Not at all Total HENRIETTA-7 score (0-4 normal; 5-9 mild; 10-14 moderate; 15-21 severe): 0 Source: Developed by Drs. Wil Cummings, Benjy Linda and colleagues, with an educational champ from [employer]. HENRIETTA-7 Assessment Billing HENRIETTA-7 Assessment Tool: HENRIETTA-7 Assessment 28763 Review of Systems Const All systems reviewed & are unremarkable except as noted in HPI and below Card Denies chest pain at rest, Denies chest pain with activity, Denies edema, Denies irregular heart rhythm, Denies claudication, Denies dyspnea, Denies dyspnea on exertion, Denies orthopnea, Denies paroxysmal nocturnal dyspnea and Denies slow heart rate Resp Denies cough, Denies dyspnea and Denies dyspnea on exertion GI Denies abdominal pain, Denies change in bowel habits, Denies excessive flatus, Denies nausea and Denies vomiting Denies urinary hesitancy, Denies urinary incontinence and Denies urinary urgency Musc Denies atrophy, Denies deformity and Denies limited range of motion Skin/Breast Denies bleeding lesions, Denies changing lesions and Denies rash Physical exam (Primary Care) Vital Signs: Last Vital Signs BP 130/64 04/09/25 07:56 BMI result Body Mass Index 24.7 Tobacco/Smoking Status: Tobacco use Status Tobacco use date assessed 11/19/24 04/09/25 08:01 Patient Tobacco Use Status Current everyday Tobacco 04/09/25 08:01 Tobacco use type Cigarette 04/09/25 08:01 e-Cigarette/Vaping Use Never Used 04/09/25 08:01 PHQ-9: PHQ-9 Score PHQ-9: Total score 0 04/09/25 08:01 Depression Screening Interpretation: Negative Thrive Assessment: Date of Thrive Assessment Date Thrive assessed 04/09/25 04/09/25 08:01 Currently or been in a relationship where the following occur: No concerns repor toma Resp Effort & Inspection: normal respiratory effort Auscultation: clear to auscultation bilaterally Cardio Jugular venous distension: no JVD Rate: regular rate Rhythm: regular rhythm Heart sounds: S1 normal heart sound present and S2 normal heart sound present Extrem General: Yes full ROM Coding Level of Care Code Est Pt Level 4 (01655) Complex EM visit Add On G2211 Diagnoses Essential hypertension I10 Pure hypercholesterolemia E78.00 Uncontrolled type 2 diabetes mellitus with hyperglycemia, with long-term current use of insulin E11.65; Z79.4 Psoriatic arthritis L40.50 COPD (chronic obstructive pulmonary disease) J44.9 Additional Codes PHQ-9 - 02131 - PHQ-9 Billing: Yes ([id number]) HENRIETTA-7 Assessment Billing - HENRIETTA-7 Assessment Tool: HENRIETTA-7 Assessment 37593 ([id number]) Time Spent (min) 23 Assessment & Plan Assessment & Plan (1) Essential hypertension: Code(s): I10 - Essential (primary) hypertension Category: Medical (2) Pure hypercholesterolemia: Code(s): E78.00 - Pure hypercholesterolemia, unspecified Category: Medical (3) Uncontrolled type 2 diabetes mellitus with hyperglycemia, with long-term current use of insulin: Code(s): E11.65 - Type 2 diabetes mellitus with hyperglycemia; Z79.4 - shelter (current) use of insulin Category: Medical (4) Psoriatic arthritis: Code(s): L40.50 - Arthropathic psoriasis, unspecified Category: Medical (5) COPD (chronic obstructive pulmonary disease): Code(s): J44.9 - Chronic obstructive pulmonary disease, unspecified Category: Medical Plan Continue insulin. Follow-up with endocrinology. Blood pressure goal is equal or less than 130/80. LDL goal is less than 70. Labs pending. A1c goal is less than 7%. Referred to pulmonology for COPD. Continue lung cancer screening yearly. X-ray of the right hand and left rib order. Referred to Ortho for right hand pain. Orders: Orders XR hand RT 2V Today M79.641 - Pain in right hand XR ribs LT 2V Today R07.81 - Pleurodynia Referrals Orthopedics Referral M79.641 - Pain in right hand Pulmonology Referral J44.9 - Chronic obstructive pulmonary disease, unspecified
[2025-04-09 07:56] VITALS: BP 130/64; BMI 24.7
== END 2025-04-09 08:35 | disposition home or self-care (01) ==
LOC: HO.HMCH 07:37
PROVIDERS: PCP Internal Medicine; Visit Provider Internal Medicine
DX: E11.65 Type 2 diabetes mellitus with hyperglycemia (principal); Z79.4 Long term (current) use of insulin; L40.50 Arthropathic psoriasis, unspecified; J44.9 Chronic obstructive pulmonary disease, unspecified; I10 Essential (primary) hypertension; E78.00 Pure hypercholesterolemia, unspecified

== ENCOUNTER → 2025-04-09 07:37 | Outpatient (BNVA) | payer OTHER, SELFPAY | PROVIDERS: PCP Internal Medicine; Visit Provider Internal Medicine | DX: I10 Essential (primary) hypertension (principal); E78.00 Pure hypercholesterolemia, unspecified; E11.65 Type 2 diabetes mellitus with hyperglycemia; L40.50 Arthropathic psoriasis, unspecified; J44.9 Chronic obstructive pulmonary disease, unspecified; Z79.4 Long term (current) use of insulin | CPT/HCPCS: 96127; 99212 ==

== ENCOUNTER 2025-04-11 09:24 | Outpatient (REF) | payer OTHER, SELFPAY ==
--- NOTE | ~2025-04-11 | XR_ITS ---
EXAMINATION: XR HAND, RIGHT CLINICAL INFORMATION: M79.641 - Pain in right hand COMPARISON: None available. TECHNIQUE: PA, lateral, and oblique views of the right hand. FINDINGS: Mild joint space narrowing distal interphalangeal joint of the second digit. No acute cortical disruption or malalignment. Focal calcifications at the metacarpophalangeal joint, fourth digit. No subcutaneous emphysema. No lytic or blastic lesions. XR/XR hand RT 2V IMPRESSION: Mild osteoarthrosis, distal interphalangeal joint second digit and fourth metacarpophalangeal joint. Electronically signed by: Nicholas Medeiros MD 04/11/2025 10:04 AM EDT
--- NOTE | ~2025-04-11 | XR_ITS ---
EXAMINATION: XR RIBS, LEFT CLINICAL INFORMATION: R07.81 - Pleurodynia COMPARISON: November 17, 2022 TECHNIQUE: AP chest. Oblique views left hemithorax. FINDINGS: No consolidation, pleural effusion or pneumothorax. No hyperinflation. Cardiomediastinal silhouette size is normal. Calcified plaque aortic arch. Multilevel thoracolumbar spondylosis. No acute displaced cortical disruption in the ribs of the left hemithorax. XR/XR ribs LT min 3V w CXR1V IMPRESSION: No acute airspace disease. No acute rib fracture, left hemithorax. Multilevel thoracolumbar spondylosis. Electronically signed by: Nicholas Medeiros MD 04/11/2025 10:06 AM EDT
--- OUTSIDE RECORDS SUMMARY | 2025-04-11 09:42 | XMS_ITS | Patient Health Record ---
Author Organization [facility] Address [address] [place] [address] Care Team Providers Care Medical Technologist Chemistry Name Role Phone Sheba Greco Primary Care Provider Wil Sebastian Unavailable [phone] Allergies Allergen (clinical drug ingredient) Drug/Non Drug [...] Status Risk Notes Problem Colon cancer screening (476392722) Colon cancer screening (Z12.11) Active confirmed Problem Diverticular disease of colon (454936674) Diverticulosis of large intestine without perforation or abscess without bleeding (K57.30) Active confirmed Problem 193988677 Gastroesophageal reflux disease without esophagitis (K21.9) Active confirmed Problem [id number] 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 [address] [place] [address] [phone] [id number] FOREIGN ORTA Self - patient is the [...]
--- OUTSIDE RECORDS SUMMARY | 2025-04-11 09:42 | XMS_ITS | Clinical Summary ---
Author Organization [employer] Address [address] [place] [address] [address] [place] [address] Care Team Providers Care Home Energy Consultant Name Role Phone Unavailable Primary Care Provider [...]
--- OUTSIDE RECORDS SUMMARY | 2025-04-11 09:42 | XMS_ITS | Clinical Summary ---
Author Organization [facility] Address [address] [place] [address] Phone Care Team Providers Care Campaign Consultant Name Role Phone Physician, Pcp Unknown Primary [...] - [place] [employer] MED[employer] Care Teams Campaign Consultant Relationship Specialty Start Date End Date Physician, Pcp Unknown PCP - General 12/11/24
--- OUTSIDE RECORDS SUMMARY | 2025-04-11 09:42 | XMS_ITS | Encounter Summary ---
Author Organization [facility] Address [address] [facility] [address] [place] [address] Phone Care Team Providers Care Accounting Clerk Name Role Phone Sheba Greco MD Primary Care Provider [phone] Reason for Visit * Reason Comments Med Refill Encounter Details Date Type Department Care Team (Late Contact Info) Description 04/06/2025 Refill [facility] [address] [facility] [address] [place] [address] Kurt Carbajal MD [address] [address] Social History Tobacco Use Types [...] Visit [facility] [address] [place] [address] Kurt Carbajal MD [address] [address] documented as of this encounter Visit Diagnoses Not on filedocumented in this encounter Care Teams Accounting Clerk Relationship Specialty Start Date End Date Sheba Greco MD [address] [place], [place] PCP - General 10/12/20 documented as of this encounter
== END 2025-04-11 09:25 | disposition home or self-care (01) ==
LOC: HO.XRAY 09:24
PROVIDERS: PCP Internal Medicine; Visit Provider Internal Medicine
DX: M19.041 Primary osteoarthritis, right hand (principal); R07.81 Pleurodynia
CPT/HCPCS: 71101; 73120

== ENCOUNTER → 2025-04-11 09:30 | Outpatient (BNV) | payer OTHER, SELFPAY | PROVIDERS: PCP Internal Medicine; Visit Provider Radiology Diagnostic Radiology | DX: R07.81 Pleurodynia (principal); M79.641 Pain in right hand | CPT/HCPCS: 71101; 73120 ==

== ENCOUNTER 2025-04-28 07:36 | Outpatient (AMB) | payer OTHER, SELFPAY ==
--- OUTSIDE RECORDS SUMMARY | 2025-04-28 07:38 | XMS_ITS | Patient Health Record ---
Author Organization [facility] Address [address] [place] [address] Care Team Providers Care Rural Carrier Associate Name Role Phone Sheba Greco Primary Care Provider Wil Sebastian Unavailable [phone] Allergies Allergen (clinical drug ingredient) Drug/Non Drug [...] Status Risk Notes Problem Colon cancer screening (101769680) Colon cancer screening (Z12.11) Active confirmed Problem Diverticulosis o f large intestine without perforation or abscess without bleeding (K57.30) Active confirmed Problem 914423729 Gastroesophageal reflux disease without esophagitis (K21.9) Active confirmed Problem [id number] History of White's esophagus (Z87.19) Active confirmed Plan Of Treatment Future Test Test Name Order Date UPPER GI ENDOSCOPY 03/29/2012 COLONOSCOPY 03/29/2012 COLONOSCOPY 09/21/2022 Insurance Providers Payer Name Payer Address Payer Phone Subscriber Number Group Number Insured Name Patient Relationship to Insured Coverage Start Date Coverage End Date [facility] [address] [address] [place] [address] [id number] FOREIGN ORTA Self - patient is the [...]
--- OUTSIDE RECORDS SUMMARY | 2025-04-28 07:38 | XMS_ITS | Encounter Summary ---
Author Organization [facility] Address [address] [facility] [address] [facility] [address] [place] [address] Phone Care Team Providers Care Director Ship Name Role Phone Sheba Greco MD Primary Care Provider [phone] Encounter Details Date Type Department Care Team (Late st Contact Info) Description 02/20/2024 Office Communication [facility] [address] [facility] [address] [place] [address] Kurt Carbajal MD [address] [facility] [address] [place] [address] Social History Tobacco Use Types [...] documented in this encounter Plan of Treatment Not on file documented as of this encounter Visit Diagnoses Not on filedocumented in this encounter Care Teams Director Ship Relationship Specialty Start Date End Date Sheba Greco MD [address] [place], [place] PCP - General 10/12/20 documented as of this encounter
--- OUTSIDE RECORDS SUMMARY | 2025-04-28 07:38 | XMS_ITS | Clinical Summary ---
Author Organization [facility] Address [address] [place] [address] Phone Care Team Providers Care Shift Stacker Name Role Phone Physician, Pcp Unknown Primary [...] Vaccine ( - 2023-2 5 season) 2024 Depression Screening 10/02/2024 Abdominal Aortic Aneurysm (A AA) Screen 2024 Cholesterol Screening (Lipid Panel) 2024 Colorectal Cancer Screening: Colonoscopy 2024 Falls Risk Assessment 2024 Hepatitis C [...] - [place] [employer] MED[employer]ARE Care Teams Shift Stacker Relationship Specialty Start Date End Date Physician, Pcp Unknown PCP - General 12/11/24
--- OUTSIDE RECORDS SUMMARY | 2025-04-28 07:39 | XMS_ITS | Clinical Summary ---
Author Organization [employer] Address [address] [place] [address] 7[address] [place] [address] Care Team Providers Care Spud Sorter Name Role Phone Unavailable Primary Care Provider [...]
[2025-04-28 07:51] VITALS: BP 132/60; BMI 24.7
--- NOTE | 2025-04-28 07:51 | A.OFFPC_ITS ---
Vital Signs 04/28/25 07:51 Height 5 ft 7 in Weight 158 lb BMI 24.7 BP 132/60 Blood Pressure Location Lt brachial Position Sitting Intake Visit Reasons: F/U back pain left side Intake Note: patient here for left side pain, patches to quit smoking Transfer Coordinator Required: No Accompanied by: Self / Same As Patient Allergies doxycycline Allergy (Intermediate, Verified 04/28/25 08:00) Itching levofloxacin Allergy (Intermediate, Verified 04/28/25 08:00) Itching metformin Allergy (Intermediate, Verified 04/28/25 08:00) diarrhea morphine (MORPHINE) Allergy (Intermediate, Verified 04/28/25 08:00) ITCHING tetracycline Allergy (Intermediate, Verified 04/28/25 08:00) Itching cefazolin Adverse Reaction (Mild, Verified 04/28/25 08:00) Diarrhea, itchy Medication List - Last Reconciled 04/28/25 by Sheba Corbett MD acetaminophen (Tylenol) 650 mg (2 x 325 mg) PO Q4H PRN albuterol sulfate 2.5 mg (3 mL) inhalation Q6H PRN 30 days amlodipine 5 mg PO DAILY 90 days apremilast (Otezla) 30 mg PO BID aspirin 81 mg PO DAILY atorvastatin 40 mg PO BEDTIME 90 days blood sugar diagnostic (OneTouch Verio test strips) Use 3 times a day to test BG daily for 30 days blood-glucose sensor (Bebitos G7 Sensor device) Use daily As directed to monitor glucose. change q 10 days cholecalciferol (vitamin D3) 25 mcg PO DAILY 90 days cholestyramine (with sugar) 4 gram 4 grams PO BID 30 days clotrimazole-betamethasone 1-0.05 % 1 appl topical BID [diabetic shoes and inserts As directed] fluticasone propion-salmeterol 500-50 mcg/dose (Wixela Inhub) 1 inh PO BID 90 days gabapentin 600 mg (2 x 300 mg) PO DAILY 90 days glucose (Dex4 Glucose) 16 grams (4 x 4 gram) PO Q15M PRN insulin glargine (Lantus Solostar U-100 Insulin) 25 units (0.25 mL) subcut QPM 90 days insulin lispro (Humalog KwikPen (U-100) Insulin) 5 units (0.05 mL) subcut BID ipratropium-albuterol 0.5 mg-3 mg(2.5 mg base)/3 mL 3 mL inhalation Q6H PRN 30 days ipratropium-albuterol 20-100 mcg/actuation (Combivent Respimat) 1 puff inhalation Q6H PRN 30 days lancets (Opsona Delica Plus Lancet) CHECK BY FINGER STICK ROUTE 4 TIMES EVERY DAY lancets (Travelogyuch Safety Lancets) As directed TID nebulizers (AeroEclipse II Nebulizer) As directed nicotine 1 patch transdermal DAILY 28 days omeprazole 20 mg PO BID [IROCKEuch glucometer As directed] pen needle, diabetic As directed daily with Lantus pramipexole 0.125 mg PO BEDTIME 90 days sodium polystyrene sulfonate 15 grams PO BID 30 days tamsulosin 0.4 mg PO DAILY triamcinolone acetonide 0.1% 1 appl topical BID 1 week Ventolin HFA 90 mcg/actuation (albuterol sulfate) 2 puffs inhalation Q6H PRN 30 days NS zolpidem 10 mg PO BEDTIME 30 days Tobacco use date assessed: 11/19/24 Fall risk assessment: No Falls in past year Last assessed Fall Risk: 04/28/25 Dental Screening Dental Screen Date: 11/19/24 HPI HPI Comments History of Present Illness Details The patient is a 74-year-old male presenting with diabetes mellitus management. Diabetes mellitus is well-controlled with an A1c of 7.2%, as measured in January, and the patient follows up with endocrinology. The patient also presents with Chronic Obstructive Pulmonary Disease (COPD). He is a smoker, consuming less than a pack every three days, and is considering cessation options. Osteoarthritis of the right hand is another concern, with a scheduled orthopedic consultation for further evaluation. The patient reports persistent pain in the left rib cage, although previous imaging showed normal ribs. The patient has thoracolumbar spondylosis but denies any chest pain or back pain. He is also managing pure hypercholesterolemia, with a goal to maintain LDL levels below 70 mg/dL. [facility] Medical History CKD stage 3 due to type 2 diabetes mellitus Hypertensive retinopathy Nicotine dependence, cigarettes, uncomplicated Tubular adenoma of colon Restless leg syndrome Mild persistent asthma Diabetes mellitus, with long-term current use of insulin Pure hypercholesterolemia GERD (gastroesophageal reflux disease) Precordial chest pain Essential hypertension Non-rheumatic aortic stenosis Loss of hearing Anemia Asthma Surgical History History of esophagogastroduodenoscopy (EGD) History of colonoscopy (~11/09/22) History of cholecystectomy History of implantation of penile prosthesis Family History Father No problems noted. Mother No problems noted. Family/Other FH: mental illness Brother In good health Sister In good health Son In good health Daughter In good health Other Mental health disorder Social History Household Members: None Housing: Apartment Do you presently have visiting nurse or other home services: No Alcohol intake: current Alcohol intake frequency: holidays/special occasions only Alcohol type: hard liquor Patient Tobacco Use Status: Current everyday Tobacco user Tobacco use type: Cigarette Cigarettes Per Day: 10 e-Cigarette/Vaping Use: Never Used Second Hand Smoke Exposure: No service: No Current occupational status: disabled Cognitive needs: No Hearing needs: No Vision needs: Yes Questionnaire Thrive Questionnaire Date Thrive assessed: 04/09/25 I am a: Patient What is your living situation today?: I have a steady place to live Within the past 12 months, did the food you bought not last and you didn't have the money to get more?: Never true Within the past 12 months, did you worry whether your food would run out before you got money to buy more?: Never true Do you have trouble paying for medicines?: No Do you have trouble getting transportation to medical appointments?: No Do you have trouble paying your heating and electricity bill?: No Do you have trouble taking care of your child, family member or friend?: No Do you have trouble with day-to-day activities such as bathing, preparing meals, shopping, managing finances, etc.?: No Are you currently unemployed and looking for a job?: No Are you interested in more education?: No Please select the resources that you would like help with: None Currently or been in a relationship where the following occur: No concerns reported THRIVE Score: 0 HENRIETTA-7 AMB Questionnaire HENRIETTA-7 Date HENRIETTA - 7 assessed: 04/09/25 Source: Developed by Drs. Wil Cummings, Nataly Summers, Benjy Grimes and colleagues, with an educational champ from [employer]. Review of Systems Const All systems reviewed & are unremarkable except as noted in HPI and below Card Denies chest pain at rest, Denies chest pain with activity, Denies edema, Denies irregular heart rhythm, Denies claudication, Denies dyspnea, Denies dyspnea on exertion, Denies orthopnea, Denies paroxysmal nocturnal dyspnea and Denies slow heart rate Resp Denies cough, Denies dyspnea and Denies dyspnea on exertion GI Denies abdominal pain, Denies change in bowel habits, Denies excessive flatus, Denies nausea and Denies vomiting Denies urinary hesitancy, Denies urinary incontinence and Denies urinary urgency Musc Denies abnormal gait, Denies atrophy, Denies deformity and Denies limited range of motion Skin/Breast Denies bleeding lesions, Denies changing lesions and Denies rash Neuro Denies abnormal gait and Denies lack of coordination Physical exam (Primary Care) Vital Signs: Last Vital Signs BP 132/60 04/28/25 07:51 BMI result Body Mass Index 24.7 Tobacco/Smoking Status: Tobacco use Status Tobacco use date assessed 11/19/24 04/28/25 07:57 Patient Tobacco Use Status Current everyday Tobacco 04/28/25 07:57 Tobacco use type Cigarette 04/28/25 07:57 e-Cigarette/Vaping Use Never Used 04/28/25 07:57 Are you ready to quit: No Tobacco cessation counseling provided: Yes Items discussed: Nicotine replacement and QuitWorks Relapse Prevention: discussed the importance of a supportive environment, discussed extending NRT, discussed negative mood or depression after quitting, weight gain after smoking is common and discussed dietary, exercise and/or l ifestyle changes Number of minutes spent counselin CPT code: 62882 - 4-10 Minutes Thrive Assessment: Date of Thrive Assessment Date Thrive assessed 04/09/25 04/28/25 07:57 Currently or been in a relationship where the following occur: No concerns reported Resp Effort & Inspection: normal respiratory effort Auscultation: clear to auscultation bilaterally Cardio Jugular venous distension: no JVD Rate: regular rate Rhythm: regular rhythm Heart sounds: S1 normal heart sound present and S2 normal heart sound present Extrem General: Yes full ROM Coding Level of Care Code Est Pt Level 4 (87800) Complex EM visit Add On G2211 Diagnoses Essential hypertension I10 Pure hypercholesterolemia E78.00 Uncontrolled type 2 diabetes mellitus with hyperglycemia, with long-term current use of insulin E11.65; Z79.4 Psoriatic arthritis L40.50 Right hand pain M79.641 COPD (chronic obstructive pulmonary disease) J44.9 Additional Codes Vital Signs *Quality* - CPT code: 28648 - 4-10 Minutes ([id number]) Time Spent (min) 23 Assessment & Plan Assessment & Plan (1) Essential hypertension: Code(s): I10 - Essential (primary) hypertension Category: Medical (2) Pure hypercholesterolemia: Code(s): E78.00 - Pure hypercholesterolemia, unspecified Category: Medical (3) Uncontrolled type 2 diabetes mellitus with hyperglycemia, with long-term current use of insulin: Code(s): E11.65 - Type 2 diabetes mellitus with hyperglycemia; Z79.4 - longterm (current) use of insulin Category: Medical (4) Psoriatic arthritis: Code(s): L40.50 - Arthropathic psoriasis, unspecified Category: Medical (5) Right hand pain: Code(s): M79.641 - Pain in right hand Category: Medical (6) COPD (chronic obstructive pulmonary disease): Code(s): J44.9 - Chronic obstructive pulmonary disease, unspecified Category: Medical Plan For diabetes mellitus, the patient will continue to follow up with endocrinology, with the next appointment scheduled for May 12. For COPD, smoking cessation is encouraged, and nicotine patches may be considered if smoking frequency increases. The patient will see an sales order specialist on June 03 for osteoarthritis of the right hand. Pain management for the left rib cage pain will be addressed in the upcoming hospital visit. For hypercholesterolemia, the goal is to maintain LDL levels below 70 mg/dL, with labs to be repeated in August. Patient was informed and verbally consented to the use of an ambient scribe for clinic note documentation during this visit. Orders: Orders Vitamin D 25-OH Total 4 Months E55.9 - Vitamin D deficiency, unspecified Comprehensive Met. Panel 4 Months J44.9 - Chronic obstructive pulmonary disease, unspecified Lipid Panel 4 Months E78.5 - Hyperlipidemia, unspecified Microalbumin, Random (w Creat) 4 Months R80.9 - Proteinuria, unspecified Medications: New nicotine 1 patch transdermal DAILY 28 ea 0RF 28 days Discontinued nicotine Discontinued Reason: Order 1 patch transdermal DAILY 28 days 28 ea 0RF
== END 2025-04-28 08:11 | disposition home or self-care (01) ==
LOC: HO.HMCH 07:37
PROVIDERS: PCP Internal Medicine; Visit Provider Internal Medicine
DX: I10 Essential (primary) hypertension (principal); E78.00 Pure hypercholesterolemia, unspecified; E11.65 Type 2 diabetes mellitus with hyperglycemia; Z79.4 Long term (current) use of insulin; L40.50 Arthropathic psoriasis, unspecified; M79.641 Pain in right hand; J44.9 Chronic obstructive pulmonary disease, unspecified

== ENCOUNTER → 2025-04-28 07:36 | Outpatient (BNVA) | payer OTHER, SELFPAY | PROVIDERS: PCP Internal Medicine; Visit Provider Internal Medicine | DX: I10 Essential (primary) hypertension (principal); E78.00 Pure hypercholesterolemia, unspecified; E11.65 Type 2 diabetes mellitus with hyperglycemia; Z79.4 Long term (current) use of insulin; L40.50 Arthropathic psoriasis, unspecified; M79.641 Pain in right hand; J44.9 Chronic obstructive pulmonary disease, unspecified | CPT/HCPCS: 99212 ==

== ENCOUNTER 2025-05-12 09:22 | Outpatient (AMB) | payer OTHER, SELFPAY ==
[2025-05-12 09:42] VITALS: BP 132/60; BMI 24.9
--- NOTE | 2025-05-12 09:42 | A.OFFVIS_ITS ---
Vital Signs 05/12/25 09:42 Height 5 ft 7 in Weight 158 lb 11.725 oz BMI 24.9 BP 132/60 Blood Pressure Location Rt brachial Position Sitting Pulse Source Pulse Oximeter Oxygen Delivery Method Room Air Intake Visit Reasons: Type 2 diabetes mellitus with hyperglycemia Intake Note: Patient present today for Type 2 Diabetes Mellitus Last Diabetic eye exam: 10/2024 Last Podiatry Visit: 12/2024 Random Glucose: 210 mg/dL HgA1C: 7.1%, 05/12/2025 Tobacco Prevention Health Educator Required: Yes Tobacco Prevention Health Educator Language: Front Counter Attendant Services: Tobacco Prevention Health Educator Offered & Declined Information Interpreted: non-clinical & clinical Accompanied by: Self / Same As Patient Allergies doxycycline Allergy (Intermediate, Verified 04/28/25 08:00) Itching levofloxacin Allergy (Intermediate, Verified 04/28/25 08:00) Itching metformin Allergy (Intermediate, Verified 04/28/25 08:00) diarrhea morphine (MORPHINE) Allergy (Intermediate, Verified 04/28/25 08:00) ITCHING tetracycline Allergy (Intermediate, Verified 04/28/25 08:00) Itching cefazolin Adverse Reaction (Mild, Verified 04/28/25 08:00) Diarrhea, itchy Medication List - Last Reconciled 05/12/25 by Danielle Forte PA-C acetaminophen (Tylenol) 650 mg (2 x 325 mg) PO Q4H PRN albuterol sulfate 2.5 mg (3 mL) inhalation Q6H PRN 30 days amlodipine 5 mg PO DAILY 90 days apremilast (Otezla) 30 mg PO BID aspirin 81 mg PO DAILY atorvastatin 40 mg PO BEDTIME 90 days blood sugar diagnostic (PreventsysTouch Verio test strips) Use 3 times a day to test BG daily for 30 days blood-glucose sensor (saambaa G7 Sensor device) Use daily As directed to monitor glucose. change q 10 days cholecalciferol (vitamin D3) 25 mcg PO DAILY 90 days cholestyramine (with sugar) 4 gram 4 grams PO BID 30 days clotrimazole-betamethasone 1-0.05 % 1 appl topical BID [diabetic shoes and inserts As directed] fluticasone propion-salmeterol 500-50 mcg/dose (Wixela Inhub) 1 inh PO BID 90 days gabapentin 600 mg (2 x 300 mg) PO DAILY 90 days glucose (Dex4 Glucose) 16 grams (4 x 4 gram) PO Q15M PRN insulin glargine (Lantus Solostar U-100 Insulin) 25 units (0.25 mL) subcut QPM 90 days insulin lispro (Humalog KwikPen (U-100) Insulin) 5 units (0.05 mL) subcut BID ipratropium-albuterol 0.5 mg-3 mg(2.5 mg base)/3 mL 3 mL inhalation Q6H PRN 30 days ipratropium-albuterol 20-100 mcg/actuation (Combivent Respimat) 1 puff inhalation Q6H PRN 30 days lancets (Ludia Delica Plus Lancet) CHECK BY FINGER STICK ROUTE 4 TIMES EVERY DAY lancets (Peeky Safety Lancets) As directed TID nebulizers (AeroEclipse II Nebulizer) As directed nicotine 1 patch transdermal DAILY 28 days omeprazole 20 mg PO BID [onetouch glucometer As directed] pen needle, diabetic As directed daily with Lantus pramipexole 0.125 mg PO BEDTIME 90 days sodium polystyrene sulfonate 15 grams PO BID 30 days tamsulosin 0.4 mg PO DAILY triamcinolone acetonide 0.1% 1 appl topical BID 1 week Ventolin HFA 90 mcg/actuation (albuterol sulfate) 2 puffs inhalation Q6H PRN 30 days NS zolpidem 10 mg PO BEDTIME 30 days HPI HPI Type 2 diabetes mellitus with hyperglycemia: Details: Patient is a 74-year-old male with a significant past medical history of hypertension, anemia, GERD, hyperlipidemia, aortic stenosis, and type 2 diabetes presenting today for a consultation regarding diabetes. Tobacco Prevention Health Educator: Declines welt stitcher today Endo: He was diagnosed with diabetes around 1999. His last A1c was 7.2 and today it is 7.1. He is supposed to be on Lantus 25 units daily, Humalog with meals and Trulicity 3 mg weekly. He has been off of the Trulicity for a couple of months. He did not like the appetite suppression. He only wants to be on insulin. He states that he is using Lantus most stays unless his blood sugars are low. He has stopped taking Humalog with dinner and only takes it with breakfast if his blood sugars are elevated. He refuses to wear a sensor. He also does not want to be a sensor. -Metformin causes GI distress, jardiance caused increased urinary frequency. Trulicity cause weight loss, does not want to take any other oral medications. Does not want to use a sensor cgm- does not want He states that he has not had any low blood sugars He states that everyone in his family has type 2 diabetes and when he was diagnosed he was confirmed type 2 diabetes. He is following with diabetic Education CV: Blood pressure today in the office is 132/60. He is currently on norvasc 5 mg. cholesterol managed with atorvastatin 40 mg. Nephro: Follows with Dr. Carbajal for chronic kidney disease. States that this has been stable. [facility] Medical History CKD stage 3 due to type 2 diabetes mellitus Hypertensive retinopathy Nicotine dependence, cigarettes, uncomplicated Tubular adenoma of colon Restless leg syndrome Mild persistent asthma Diabetes mellitus, with long-term current use of insulin Pure hypercholesterolemia GERD (gastroesophageal reflux disease) Precordial chest pain Essential hypertension Non-rheumatic aortic stenosis Loss of hearing Anemia Asthma Surgical History History of esophagogastroduodenoscopy (EGD) History of colonoscopy (~11/09/22) History of cholecystectomy History of implantation of penile prosthesis Family History Father No problems noted. Mother No problems noted. Family/Other FH: mental illness Brother In good health Sister In good health Son In good health Daughter In good health Other Mental health disorder Social History Household Members: None Housing: Apartment Do you presently have visiting nurse or other home services: No Alcohol intake: current Alcohol intake frequency: holidays/special occasions only Alcohol type: hard liquor Patient Tobacco Use Status: Current everyday Tobacco user Tobacco use type: Cigarette Cigarettes Per Day: 10 e-Cigarette/Vaping Use: Never Used Second Hand Smoke Exposure: No service: No Current occupational status: disabled Cognitive needs: No Hearing needs: No Vision needs: Yes Physical Exam Const Orientation/consciousness: patient oriented x3 HEENT Ears: hearing grossly normal bilaterally Neck Thyroid: Thyroid normal Lymphatic: no lymphadenopathy noted Resp Auscultation: clear to auscultation bilaterally Cardio Rate: regular rate Rhythm: regular rhythm Heart sounds: S1 normal heart sound present, S2 normal heart sound present and Murmur heart sound present Skin General skin exam: no rashes or lesions noted Neuro General: patient oriented x3, gait normal and no focal motor deficits Results AMB Hemoglobin A1c AMB Hemoglobin A1c 7.1 % Last Edit by BENITA Sales on 05/12/25 10:00 Assessment & Plan Assessment & Plan (1) Uncontrolled type 2 diabetes mellitus with hyperglycemia, with long-term current use of insulin: Code(s): E11.65 - Type 2 diabetes mellitus with hyperglycemia; Z79.4 - custodial (current) use of insulin Category: Medical Plan: Continue current regimen Labs ordered. We will follow up in 3 months. Sooner if needed. He will let me know if he changes his mind regarding a sensor. He will also call if any low blood sugars (2) Essential hypertension: Code(s): I10 - Essential (primary) hypertension Category: Medical Plan: WNL. Continue current regimen (3) Pure hypercholesterolemia: Code(s): E78.00 - Pure hypercholesterolemia, unspecified Category: Medical Plan: WNL. Orders: Orders AMB Hemoglobin A1c Today E11.65 - Type 2 diabetes mellitus with hyperglycemia, Z79.4 - terminal make up operator (current) use of insulin Medications: Changed From insulin lispro (Humalog KwikPen (U-100) Insulin) with breakfast and dinner 5 units (0.05 mL) subcut BID 15 mL 1RF To insulin lispro (Humalog KwikPen (U-100) Insulin) prn with meals, do not inject if bs <150 5 units (0.05 mL) subcut BID 15 mL 1RF Refilled insulin glargine (Lantus Solostar U-100 Insulin) 25 units (0.25 mL) subcut QPM 30 mL 3RF 90 days Coding Level of Care Code Est Pt Level 4 (22632) Complex EM visit Add On G2211 Diagnoses Uncontrolled type 2 diabetes mellitus with hyperglycemia, with long-term current use of insulin E11.65; Z79.4 Essential hypertension I10 Pure hypercholesterolemia E78.00
--- OUTSIDE RECORDS SUMMARY | 2025-05-12 09:49 | XMS_ITS | Patient Health Record ---
Author Organization [facility] Address [address] [place] [address] Care Team Providers Care Retail Client Solutions Consultant Name Role Phone Sheba Greco Primary Care Provider Wil Sebastian Unavailable [phone] Allergies Allergen (clinical drug ingredient) Drug/Non Drug [...] Status Risk Notes Problem Colon cancer screening (593837341) Colon cancer screening (Z12.11) Active confirmed Problem Diverticular disease of colon (336307834) Diverticulosis of large intestine without perforation or abscess without bleeding (K57.30) Active confirmed Problem [id number] Gastroesophageal reflux disease without esophagitis (K21.9) Active confirmed Problem [id number] 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 [address] [address] [place] [phone] [id number] FOREIGN ORAT Self - patient is the insured Medical (General) History Medical History History ICD Code IDDM HTN White's esophagus(small area) seen on an EGD prior to 2011 GERD--EGD was negative for esophagitis a nd White's in 2011 Denies ND,CVA, and renal disease Cardiac catheterizations-? results Negative screening colonoscopy in 2011 Asthma Surgical History Surgery Date(Month/Year) cholecystectomy penile prosthesis-01/2012
--- OUTSIDE RECORDS SUMMARY | 2025-05-12 09:49 | XMS_ITS | Clinical Summary ---
Author Organization [facility] Address [address] [place] [phone] Phone Care Team Providers Care Dba Manager Name Role Phone Physician, Pcp Unknown Primary [...] - [place] [employer] Care Teams Dba Manager Relationship Specialty Start Date End Date Physician, Pcp Unknown PCP - General 12/11/24
--- OUTSIDE RECORDS SUMMARY | 2025-05-12 09:49 | XMS_ITS | Clinical Summary ---
Author Organization [employer] Address [address] [place] [address] [address] [place] [address] Care Team Providers Care Environmental Compliance Inspector Name Role Phone Unavailable Primary Care Provider [...]
--- OUTSIDE RECORDS SUMMARY | 2025-05-12 09:49 | XMS_ITS | Encounter Summary ---
Author Organization [facility] Address [address] [facility] [address] [place] [address] Phone Care Team Providers Care Window Trimmer Name Role Phone Sheba Greco MD Primary Care Provider [phone] Encounter Details Date Type Department Care Team (Late st Contact Info) Description 02/20/2024 Office Communication [facility] [address] [facility] [address] [place] [address] Kurt Carbajal MD [address] [facility] [address] [place] [address] Social History Tobacco Use Types Packs/Day Years Used Date Smoking Tobacco: Every Day Cigarettes 0.5 7.2 Started: 03/16/2018 Smokeless Tobacco: Never Alcohol Use [...] on filedocumented in this encounter Care Teams Window Trimmer Relationship Specialty Start Date End Date Sheba Greco MD [address] [place], [place] PCP - General 10/12/20 documented as of this encounter
[2025-05-12 09:52] LABS: Glucose, Whole Blood 210 mg/dL (60-115)
== END 2025-05-12 10:03 | disposition home or self-care (01) ==
LOC: HO.ENCR 09:23
PROVIDERS: PCP Internal Medicine; Visit Provider Physician Assistant
DX: E11.65 Type 2 diabetes mellitus with hyperglycemia (principal); Z79.4 Long term (current) use of insulin; I10 Essential (primary) hypertension; E78.00 Pure hypercholesterolemia, unspecified

== ENCOUNTER → 2025-05-12 09:22 | Outpatient (BNVA) | payer OTHER, SELFPAY | PROVIDERS: PCP Internal Medicine; Visit Provider Physician Assistant | DX: E11.65 Type 2 diabetes mellitus with hyperglycemia (principal); I10 Essential (primary) hypertension; E78.00 Pure hypercholesterolemia, unspecified; Z79.4 Long term (current) use of insulin | CPT/HCPCS: 82947; 83036; 99212 ==

== ENCOUNTER 2025-05-19 09:03 | Emergency (ER) | payer OTHER, SELFPAY ==
--- NOTE | ~2025-05-19 | CT_ITS ---
EXAMINATION: CT CHEST WITHOUT IV CONTRAST INDICATION: left lower rib pain s/p fall 3 mo ago COMPARISON: Comparison is made with the prior examination dated 08/09/2024. TECHNIQUE: Helical CT scan of the chest was performed without intravenous contrast. Coronal and sagittal reformatted images were generated and reviewed. This CT exam was performed with one or more of the following dose reduction techniques: automated exposure control, adjustment of the mA and/or kV according to patient size, use of iterative reconstruction technique. DLP: 294 mGy-cm CHEST: THYROID: The thyroid is unremarkable. LUNGS: There is mild dependent atelectasis at both lungs. There is a 3 mm nodule in the left lower lobe (series 4, image 93). There are no focal airspace opacities. MEDIASTINUM: There is no mediastinal lymphadenopathy. JODIE: Evaluation of the hilar regions is limited by lack of intravenous contrast material. CARDIOVASCULATURE: The heart is normal in size. There is no pericardial effusion. The thoracic aorta is normal in caliber. DEGREE OF CORONARY CALCIFICATION: moderate PLEURA: There is no pleural effusion. No pneumothorax. MAIN AIRWAYS: The mainstem bronchi and proximal branches are patent. AXILLA: There is no axillary lymphadenopathy. BONES AND SOFT TISSUES: There is a healing fracture of the lateral aspect of the left 11th rib. UPPER ABDOMEN: The visualized portions of the liver, spleen, and adrenals have an unremarkable unenhanced appearance. CT/CT chest wo IV con IMPRESSION: 1. Healing fracture of the lateral aspect of the left 11th rib. 2. Stable 3 mm left lower lobe nodule. Electronically signed by: Wil Gomes MD 05/19/2025 11:00 AM EDT
[2025-05-19 09:30] VITALS: BP 132/69; PULSE 82; RESP 16; TEMP 37; O2SAT 96; BMI 24.9
--- NOTE | 2025-05-19 09:33 | ECG_ITS ---
Test Reason : chest pain Blood Pressure : */* mmHG Vent. Rate : 79 BPM Atrial Rate : 79 BPM P-R Int : 168 ms QRS Dur : 82 ms QT Int : 380 ms P-R-T Axes : 59 35 70 degrees QTcB Int : 435 ms Sinus rhythm with Premature atrial complexes Otherwise normal ECG When compared with ECG of 13-Nov-2024 07:33, Premature atrial complexes are now Present Referred By: Rosana Garcia Electronically Signed By: CHELSIE NIEVES MD
--- NOTE | 2025-05-19 09:33 | ED.GENADULT ---
HPI - General Adult General Chief complaint: Chest Pain Stated complaint: Pain on left side of body Related Data Home Medications ?Medication ?Instructions ?Recorded ?Confirmed apremilast 30 mg tablet (Otezla) 30 mg PO BID 10/26/21 05/12/25 Previous Rx's ?Medication ?Instructions ?Recorded [facility] glucometer #1 ea 10/09/20 triamcinolone acetonide 0.1 % 1 appl topical BID 1 week #30 grams 12/21/21 topical ointment nebulizers (AeroEclipse II #1 ea 01/10/22 Nebulizer) clotrimazole-betamethasone 1 1 appl topical BID #15 grams 02/09/22 %-0.05 % topical cream acetaminophen 325 mg capsule 650 mg (2 x 325 mg) PO Q4H PRN 02/20/22 (Tylenol) pain #30 caps Ventolin HFA 90 mcg/actuation 2 puff inhalation Q6H PRN 04/12/23 aerosol inhaler (albuterol sulfate) shortness of breath or wheezing 30 days #18 grams albuterol sulfate 2.5 mg/3 mL 2.5 mg (3 mL) inhalation Q6H PRN 04/27/23 (0.083 %) solution for nebulization bronchospasm 30 days #360 mL diabetic shoes and inserts #1 ea 08/13/24 gabapentin 300 mg capsule 600 mg (2 x 300 mg) PO DAILY 90 11/04/24 days #180 caps lancets 28 gauge ([facility] ea 11/19/24 Lancets) lancets 33 gauge ([facility] #100 ea 11/21/24 Plus Lancet) blood sugar diagnostic ([facility] 11/23/24 Verio test strips) blood-glucose sensor (Dexcom G7 #3 ea 11/25/24 Sensor device) glucose 4 gram chewable tablet 16 g (4 x 4 gram) PO Q15M PRN 11/25/24 (Dex4 Glucose) hypoglycemia #100 tabs ipratropium 20 mcg-albuterol 100 1 puff inhalation Q6H PRN wheezing 12/25/24 mcg/actuation mist for inhalation 30 days #4 grams (Combivent Respimat) amlodipine 5 mg tablet 5 mg PO DAILY 90 days #90 tabs 01/12/25 cholecalciferol (vitamin D3) 25 25 mcg PO DAILY 90 days #90 caps 01/14/25 mcg (1,000 unit) capsule pramipexole 0.125 mg tablet 0.125 mg PO BEDTIME 90 days #90 01/14/25 tabs aspirin 81 mg tablet,delayed 81 mg PO DAILY #90 tabs 01/17/25 release tamsulosin 0.4 mg capsule 0.4 mg PO DAILY #90 caps 01/27/25 omeprazole 20 mg capsule,delayed 20 mg PO BID #180 caps 02/12/25 release fluticasone 500 mcg-salmeterol 50 1 inh PO BID 90 days #180 ea 03/07/25 mcg/dose blistr powdr for inhalation (Wixela Inhub) ipratropium 0.5 mg-albuterol 3 mg 3 ml inhalation Q6H PRN for 04/11/25 (2.5 mg base)/3 mL nebulization wheezing 30 days #90 mL soln pen needle, diabetic 31 gauge x #1,200 ea 04/17/25/ sodium polystyrene sulfonate 15 15 g PO BID 30 days #453.6 grams 04/22/25 gram oral powder atorvastatin 40 mg tablet 40 mg PO BEDTIME 90 days #90 tabs 04/26/25 nicotine 14 mg/24 hr daily 1 patch transdermal DAILY 28 days 04/28/25 transdermal patch #28 ea zolpidem 10 mg tablet 10 mg PO BEDTIME 30 days #30 tabs 05/01/25 insulin glargine 100 unit/mL (3 25 unit (0.25 mL) subcut QPM 90 05/12/25 mL) subcutaneous pen (Lantus days #30 mL Solostar U-100 Insulin) insulin lispro 100 unit/mL 5 unit (0.05 mL) subcut BID #15 mL 05/12/25 subcutaneous pen (Humalog KwikPen (U-100) Insulin) cholestyramine (with sugar) 4 gram 4 g PO BID 30 days #378 grams 05/19/25 oral powder Allergies Allergy/AdvReac Type Severity Reaction Status Date / Time doxycycline Allergy Intermediate Itching Verified 05/19/25 09:35 levofloxacin Allergy Intermediate Itching Verified 05/19/25 09:35 metformin Allergy Intermediate diarrhea Verified 05/19/25 09:35 morphine (MORPHINE) Allergy Intermediate ITCHING Verified 05/19/25 09:35 tetracycline Allergy Intermediate Itching Verified 05/19/25 09:35 cefazolin AdvReac Mild Diarrhea, Verified 05/19/25 09:35 itchy PMFSH Past Medical History Medical History CKD stage 3 due to type 2 diabetes mellitus Hypertensive retinopathy Nicotine dependence, cigarettes, uncomplicated Tubular adenoma of colon Restless leg syndrome Mild persistent asthma Diabetes mellitus, with long-term current use of insulin Pure hypercholesterolemia GERD (gastroesophageal reflux disease) Precordial chest pain Essential hypertension Non-rheumatic aortic stenosis Loss of hearing Anemia Asthma Surgical History History of esophagogastroduodenoscopy (EGD) History of colonoscopy (~11/09/22) History of cholecystectomy History of implantation of penile prosthesis Family History Family History Father No problems noted. Mother No problems noted. Family/Other FH: mental illness Brother In good health Sister In good health Son In good health Daughter In good health Other Mental health disorder Social History Social History Household Members: None Housing: Apartment Do you presently have visiting nurse or other home services: No Alcohol intake: current Alcohol intake frequency: holidays/special occasions only Alcohol type: hard liquor Patient Tobacco Use Status: Current everyday Tobacco user Tobacco use type: Cigarette Cigarettes Per Day: 10 e-Cigarette/Vaping Use: Never Used Second Hand Smoke Exposure: No Advance Directives: No Advance Directives Information Provided: Yes service: No Current occupational status: disabled Cognitive needs: No Hearing needs: No Vision needs: Yes Physical Exam ED Vital Signs: BMI result Body Mass Index 24.9 Course Course Course Narrative: This is a Rapid Medical Examination (RME) performed by Akash Garcia PA-C in triage. Full HPI, ROS, assessment and treatment plan per primary provider in the Main ED. Hx: 74 yo M hx of psoriasis here for eval of acute on chronic left lower rib pain x3 mo. reports fall 3 mo ago onto his left side, had normal rib xray at that time. reports lifting something heavy one week ago, now having left sided chest pain. worse w/ coughing, movement, palpation. PE/vitals: +reproducible ttp to left lower anterolateral ribs. no deformity. no flail chest. no rashes. Plan: labs, trop, ekg, ct EXAMINATION: XR RIBS, LEFT CLINICAL INFORMATION: R07.81 - Pleurodynia COMPARISON: November 17, 2022 TECHNIQUE: AP chest. Oblique views left hemithorax. FINDINGS: No consolidation, pleural effusion or pneumothorax. No hyperinflation. Cardiomediastinal silhouette size is normal. Calcified plaque aortic arch. Multilevel thoracolumbar spondylosis. No acute displaced cortical disruption in the ribs of the left hemithorax. XR/XR ribs LT min 3V w CXR1V IMPRESSION: No acute airspace disease. No acute rib fracture, left hemithorax. Multilevel thoracolumbar spondylosis. Reevaluation(s) Reevaluation #1: Patient left the emergency department before myself or any of the other clinicians could review or explain physical exam findings, test results, need or lack there of for additional testing, treatment options, or a treatment plan. Medical Decision Making Lab Data 05/19/25 09:49 05/19/25 09:49 Labs: Lab Results 05/19/25 05/19/25 Range/Units 09:49 12:50 WBC 9.2 (4.8-10.8) X10*3/uL RBC 4.57 L (4.60-5.80) X10*6/uL Hgb 13.9 L (14.0-18.0) g/dl Hct 41.2 L (42.0-52.0) % MCV 90.2 (80.0-98.0) fL MCH 30.4 (27.0-33.0) pg MCHC 33.7 (31.0-36.0) g/dl RDW 13.7 (11.0-16.0) % Plt Count 199 (160-400) X10*3/uL MPV 9.5 (9.4-12.4) fL Immature Gran % (Auto) 0.5 H (0.0-0.4) % Neut % (Auto) 59.1 (45-73) % Lymph % (Auto) 17.1 L (20-40) % [place] % (Auto) 7.8 (2-11) % Eos % (Auto) 14.8 H (0-4) % Baso % (Auto) 0.7 (0-2) % Lymph # (Auto) 1.6 (1.2-4.9) X10*3/uL [place] # (Auto) 0.7 (0.1-1.2) X10*3/uL Eos # (Auto) 1.4 H (0.0-0.4) X10*3/uL Baso # (Auto) 0.1 (0.0-0.2) X10*3/uL Abs Immat Gran (auto) 0.05 H (0.00-0.03) X10*3/uL Absolute Neuts (auto) 5.5 (2.0-8.3) x10*3/uL Absolute Nucleated RBC 0.000 (0.0-0.012) X10*3/uL Nucleated RBC % (auto) 0.0 (0.0-0.2) /100WBC PT 10.4 L (10.9-12.4) SEC INR 0.9 (0.9-1.1) APTT 30.3 (26.7-34.1) SEC Sodium 137 (135-145) mmol/L Potassium 4.0 (3.3-5.1) mmol/L Chloride 106 (96-108) mmol/L Carbon Dioxide 23 (22-29) mmol/L Anion Gap 12 (12-20) BUN 18 H (9-16) mg/dL Creatinine 1.25 (0.5-1.4) mg/dL Estim Creat Clear Calc 49.2 Estimated GFR 57 Random Glucose 217 H (60-115) mg/dL Calcium 9.1 (8.4-10.2) mg/dL Magnesium 1.8 (1.6-2.6) mg/dL Total Bilirubin 0.5 (0.0-1.0) mg/dL AST 43 H (5-37) U/L ALT 57 H (0-40) U/L Alkaline Phosphatase 53 (39-117) U/L Troponin I High Sens 6.8 6.0 (<3.5-35.0) ng/L Total Protein 7.1 (6.5-8.0) g/dL Albumin 4.2 (3.5-5.0) g/dL Discharge Plan Discharge Clinical Impression: Rib pain Patient Disposition: Left W/O Completing Treatment Prescriptions: No Action (DME) onetouch glucometer See Rx Instructions .Route .MEDSUPPLY Qty: 1 0RF Rx Instructions: As directed (DME) AeroEclipse II Nebulizer Misc See Rx Instructions .Route Qty: 1 0RF Rx Instructions: As directed albuterol sulfate [Ventolin HFA] 90 mcg/actuation HFA aerosol inhaler 2 puff inhalation Q6H PRN (Reason: shortness of breath or wheezing) 30 Days Qty: 18 2RF albuterol sulfate 2.5 mg /3 mL (0.083 %) solution for nebulization 2.5 mg inhalation Q6H PRN (Reason: bronchospasm) 30 Days Qty: 360 0RF (DME) diabetic shoes and inserts 9 See Rx Instructions .Route .MEDSUPPLY Qty: 1 0RF Rx Instructions: As directed gabapentin 300 mg capsule 600 mg PO DAILY 90 Days Qty: 180 3RF (DME) lancets [OneTouch Delica Plus Lancet] 33 gauge misc See Rx Instructions .ROUTE .COMPLEX Qty: 100 1RF Dose Instruction: CHECK BY FINGER STICK ROUTE 4 TIMES EVERY DAY Rx Instructions: CHECK BY FINGER STICK ROUTE 4 TIMES EVERY DAY (DME) OneTouch Verio test strips Strip See Rx Instructions .ROUTE .MEDSUPPLY Qty: 100 11RF Rx Instructions: Use 3 times a day to test BG daily for 30 days Combivent Respimat 20-100 mcg/actuation mist 1 puff inhalation Q6H PRN (Reason: wheezing) 30 Days Qty: 4 4RF amlodipine 5 mg tablet 5 mg PO DAILY 90 Days Qty: 90 1RF pramipexole 0.125 mg tablet 0.125 mg PO BEDTIME 90 Days Qty: 90 1RF cholecalciferol (vitamin D3) 25 mcg (1,000 unit) capsule 25 mcg PO DAILY 90 Days Qty: 90 1RF aspirin 81 mg tablet,delayed release (DR/EC) 81 mg PO DAILY Qty: 90 3RF tamsulosin 0.4 mg capsule 0.4 mg PO DAILY Qty: 90 1RF omeprazole 20 mg capsule,delayed release(DR/EC) 20 mg PO BID Qty: 180 2RF fluticasone propion-salmeterol [Wixela Inhub] 500-50 mcg/dose blister with device 1 inh PO BID 90 Days Qty: 180 3RF ipratropium-albuterol 0.5 mg-3 mg(2.5 mg base)/3 mL solution for nebulization 3 ml inhalation Q6H PRN (Reason: for wheezing) 30 Days Qty: 90 3RF (DME) pen needle, diabetic 31 gauge x 5/16 needle See Rx Instructions .ROUTE .MEDSUPPLY Qty: 1200 11RF Rx Instructions: As directed daily with Lantus sodium polystyrene sulfonate 15 gram Powder 15 g PO BID 30 Days Qty: 453.6 0RF atorvastatin 40 mg tablet 40 mg PO BEDTIME 90 Days Qty: 90 3RF zolpidem 10 mg tablet 10 mg PO BEDTIME 30 Days Qty: 30 0RF cholestyramine (with sugar) 4 gram powder 4 g PO BID 30 Days Qty: 378 0RF Rx Instructions: administer w/meal; avoid other meds within 1hr before or 4-6hr after dose triamcinolone acetonide 0.1 % ointment 1 appl topical BID 7 Days Qty: 30 0RF acetaminophen [Tylenol] 325 mg capsule 650 mg PO Q4H PRN (Reason: pain) Qty: 30 0RF Otezla 30 mg tablet 30 mg PO BID clotrimazole-betamethasone 1-0.05 % cream 1 appl topical BID Qty: 15 0RF glucose [Dex4 Glucose] 4 gram tablet,chewable 16 g PO Q15M PRN (Reason: hypoglycemia) Qty: 100 0RF Rx Instructions: until symptoms of low blood sugar are controlled (DME) Dexcom G7 Sensor Device See Rx Instructions .ROUTE .MEDSUPPLY Qty: 3 5RF Rx Instructions: Use daily As directed to monitor glucose. change q 10 days nicotine 14 mg/24 hr patch 24 hour 1 patch transdermal DAILY 28 Days Qty: 28 0RF (DME) lancets [CareTouch Safety Lancets] 28 gauge misc See Rx Instructions .Route Qty: 100 10RF Rx Instructions: As directed TID insulin glargine [Lantus Solostar U-100 Insulin] 100 unit/mL (3 mL) insulin pen 25 unit subcut QPM 90 Days Qty: 30 3RF Patient Comments: pt took 15 units yesterday insulin lispro [Humalog KwikPen Insulin] 100 unit/mL insulin pen 5 unit subcut BID Qty: 15 1RF Rx Instructions: prn with meals, do not inject if bs <150 Interventions: LWBS Worksheet Last Done: 05/19/25 15:48 Discharge Date/Time: 05/19/25 15:48
[2025-05-19 09:55] LABS: MANUAL DIFF FLAG NO
[2025-05-19 09:56] LABS: Hematocrit 41.2 % (42.0-52.0); Hemoglobin 13.9 g/dl (14.0-18.0); Imm Gran Abs Auto 0.05 X10*3/uL (0.00-0.03); Imm Gran Pct Auto 0.5 % (0.0-0.4); Lymphocytes Absolute Auto 1.6 X10*3/uL (1.2-4.9); Mean Corpuscular HGB Conc 33.7 g/dl (31.0-36.0); Mean Corpuscular Hemoglobin 30.4 pg (27.0-33.0); Mean Corpuscular Volume 90.2 fL (80.0-98.0); NRBC Abs Auto 0.000 X10*3/uL (0.0-0.012); NRBC Pct Auto 0.0 /100WBC (0.0-0.2); Platelet Count 199 X10*3/uL (160-400); Red Blood Count 4.57 X10*6/uL (4.60-5.80); White Blood Count 9.2 X10*3/uL (4.8-10.8)
[2025-05-19 10:11] LABS: Alanine Aminotransferase 57 U/L (0-40); Albumin Level 4.2 g/dL (3.5-5.0); Alkaline Phosphatase 53 U/L (39-117); Anion Gap 12 (12-20); Aspartate Amino Transferase 43 U/L (5-37); Blood Urea Nitrogen 18 mg/dL (9-16); Calcium 9.1 mg/dL (8.4-10.2); Carbon Dioxide 23 mmol/L (22-29); Chloride 106 mmol/L (96-108); Creatinine Clr Calc Pharmacy 49.2; Estimated Glomerular Filt Rate 57; Magnesium 1.8 mg/dL (1.6-2.6); Potassium 4.0 mmol/L (3.3-5.1); Sodium 137 mmol/L (135-145); Total Protein 7.1 g/dL (6.5-8.0)
[2025-05-19 10:20] LABS: Troponin-I High Sensitivity 6.8 ng/L (<3.5-35.0)
[2025-05-19 13:05] LABS: INTERNATIONAL NORM RATIO 0.9 (0.9-1.1); Prothrombin Time 10.4 SEC (10.9-12.4)
[2025-05-19 13:08] LABS: Partial Thromboplastin Time 30.3 SEC (26.7-34.1)
[2025-05-19 13:16] LABS: Troponin-I High Sensitivity 6.0 ng/L (<3.5-35.0)
--- OUTSIDE RECORDS SUMMARY | 2025-05-19 15:00 | XMS_ITS | Patient Health Record ---
Author Organization [facility] Address [address] [place] [address] Care Team Providers Care Medical Donation Professional Name Role Phone Sheba Greco Primary Care Provider Wil Sebastian Unavailable [phone] Allergies Allergen (clinical drug ingredient) Drug/Non Drug [...] Status Risk Notes Problem Colon cancer screening (318274873) Colon cancer screening (Z12.11) Active confirmed Problem Diverticular disease of colon (926778066) Diverticulosis of large intestine without perforation or abscess without bleeding (K57.30) Active confirmed Problem 480688929 Gastroesophageal reflux disease without esophagitis (K21.9) Active confirmed Problem [id number] 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 [address] [place] [phone] [id number] [employer] Self - patient is the [...]
--- OUTSIDE RECORDS SUMMARY | 2025-05-19 15:00 | XMS_ITS | Encounter Summary ---
Author Organization [facility] Address [address] [facility] [address] [place] [address] Phone Care Team Providers Care Electric Motor Mechanic Name Role Phone Sheba Greco MD Primary Care Provider [phone] Encounter Details Date Type Department Care Team (Late st Contact Info) Description 02/20/2024 Office Communication [facility] [address] [facility] [address] [place] [address] Kurt Carbajal MD [id number] [facility] [address] [place] [address] Social History Tobacco Use Types [...] on filedocumented in this encounter Care Teams Electric Motor Mechanic Relationship Specialty Start Date End Date Sheba Greco MD [address] [place], [place] PCP - General 10/12/20 documented as of this encounter
--- OUTSIDE RECORDS SUMMARY | 2025-05-19 15:00 | XMS_ITS | Clinical Summary ---
Author Organization [facility] Address [address] [place] [phone] Phone Care Team Providers Care Venue Attendant Name Role Phone Physician, Pcp Unknown Primary [...] - [place] [employer] Care Teams Venue Attendant Relationship Specialty Start Date End Date Physician, Pcp Unknown PCP - General 12/11/24
== END 2025-05-19 15:48 | disposition left against medical advice (07) ==
PROVIDERS: Physician Assistant; Physician Assistant Medical; Emergency Provider Emergency Medicine; PCP Internal Medicine
DX: R07.81 Pleurodynia (principal); L40.9 Psoriasis, unspecified; E11.22 Type 2 diabetes mellitus with diabetic chronic kidney disease; I12.9 Hypertensive chronic kidney disease with stage 1 through stage 4 chronic kidney disease, or unspecified chronic kidney disease; N18.30 Chronic kidney disease, stage 3 unspecified; Z79.899 Other long term (current) drug therapy
CPT/HCPCS: 36415; 71250; 80053; 83735; 84484; 85025; 85610; 85730; 93005; 99283; 99284

== ENCOUNTER → 2025-05-19 09:33 | Outpatient (BNV) | payer OTHER, SELFPAY | PROVIDERS: PCP Internal Medicine; Visit Provider Internal Medicine Cardiovascular Disease | DX: I49.1 Atrial premature depolarization (principal) | CPT/HCPCS: 93010 ==

== ENCOUNTER → 2025-05-19 09:33 | Outpatient (BNV) | payer OTHER, SELFPAY | PROVIDERS: PCP Internal Medicine; Visit Provider Radiology Diagnostic Radiology | DX: R07.89 Other chest pain (principal); S22.32XD Fracture of one rib, left side, subsequent encounter for fracture with routine healing; R91.1 Solitary pulmonary nodule | CPT/HCPCS: 71250 ==

== ENCOUNTER 2025-05-23 13:26 | Emergency (ER) | payer OTHER, SELFPAY ==
[2025-05-23 13:33] VITALS: BP 119/58; PULSE 105; RESP 16; TEMP 36.7; O2SAT 95; BMI 23.9
--- NOTE | 2025-05-23 13:35 | ED_ITS ---
HPI - General Adult General Chief complaint: Abdominal Pain Stated complaint: Left Side Pain Time Seen by Provider: 05/23/25 16:05 Source: patient and frame cleaner Mode of arrival: ambulatory Limitations: no limitations History of Present Illness ED Provider: HPI narrative: 74-year-old male who had a fall a month ago, has been having left-sided flank pain for the past 2 weeks he has been getting worse, it documented in triage note it is right side flank pain that is a mistake in documentation, patient has not had any chest pain nausea or vomiting or diarrhea no hematuria no dysuria no abdominal pain. He was here 5 days ago on the , had CT done blood work EKG however he states that he was waiting too long and he left. Information was obtained with the help of the data specialist. Related Data Home Medications ?Medication ?Instructions ?Recorded ?Confirmed apremilast 30 mg tablet (Otezla) 30 mg PO BID 10/26/21 05/12/25 Previous Rx's ?Medication ?Instructions ?Recorded Tradauch glucometer #1 ea 10/09/20 triamcinolone acetonide 0.1 % 1 appl topical BID 1 wee k #30 grams 12/21/21 topical ointment nebulizers (AeroEclipse II #1 ea 01/10/22 Nebulizer) clotrimazole-betamethasone 1 1 appl topical BID #15 gr ams 02/09/22 %-0.05 % topical cream acetaminophen 325 mg capsule 650 mg (2 x 325 mg) PO Q4 H PRN 02/20/22 (Tylenol) pain #30 caps Ventolin HFA 90 mcg/actuation 2 puff inhalation Q6H NE N 04/12/23 aerosol inhaler (albuterol sulfate) shortness of breat h or wheezing 30 days #18 grams albuterol sulfate 2.5 mg/3 mL 2.5 mg (3 mL) inhalation Q6H PRN 04/27/23 (0.083 %) solution for nebulization bronchospasm 30 da ys #360 mL diabetic shoes and inserts #1 ea 08/13/24 gabapentin 300 mg capsule 600 mg (2 x 300 mg) PO DAILY 90 11/04/24 days #180 caps lancets 28 gauge (CareTouch Safety #100 ea 11/19/24 Lancets) lancets 33 gauge (OneTouch Delica #100 ea 11/21/24 Plus Lancet) blood sugar diagnostic (OneTouch #100 ea 11/23/24 Verio test strips) blood-glucose sensor (BrightRoll G7 #3 ea 11/25/24 Sensor device) glucose 4 gram chewable tablet 16 g (4 x 4 gram) PO Q1 5M PRN 11/25/24 (Dex4 Glucose) hypoglycemia #100 tabs ipratropium 20 mcg-albuterol 100 1 puff inhalation Q6H PRN wheezing 12/25/24 mcg/actuation mist for inhalation 30 days #4 grams (Combivent Respimat) amlodipine 5 mg tablet 5 mg PO DAILY 90 days #90 ta bs 01/12/25 cholecalciferol (vitamin D3) 25 25 mcg PO DAILY 90 day s #90 caps 01/14/25 mcg (1,000 unit) capsule pramipexole 0.125 mg tablet 0.125 mg PO BEDTIME 90 day s #90 01/14/25 tabs aspirin 81 mg tablet,delayed 81 mg PO DAILY #90 tabs 0 01/17/25 release tamsulosin 0.4 mg capsule 0.4 mg PO DAILY #90 caps omeprazole 20 mg capsule,delayed 20 mg PO BID #180 cap s 02/12/25 release fluticasone 500 mcg-salmeterol 50 1 inh PO BID 90 days #180 ea 03/07/25 mcg/dose blistr powdr for inhalation (Wixela Inhub) ipratropium 0.5 mg-albuterol 3 mg 3 ml inhalation Q6H PRN for 04/11/25 (2.5 mg base)/3 mL nebulization wheezing 30 days #90 m L soln pen needle, diabetic 31 gauge x #1,200 ea 04/17/25 5/16 sodium polystyrene sulfonate 15 15 g PO BID 30 days #4 53.6 grams 04/22/25 gram oral powder atorvastatin 40 mg tablet 40 mg PO BEDTIME 90 days #90 tabs 04/26/25 nicotine 14 mg/24 hr daily 1 patch transdermal DAILY 2 8 days 04/28/25 transdermal patch #28 ea zolpidem 10 mg tablet 10 mg PO BEDTIME 30 days #30 tabs 05/01/25 insulin glargine 100 unit/mL (3 25 unit (0.25 mL) subc ut QPM 90 05/12/25 mL) subcutaneous pen (Lantus days #30 mL Solostar U-100 Insulin) insulin lispro 100 unit/mL 5 unit (0.05 mL) subcut BID #15 mL 05/12/25 subcutaneous pen (Humalog KwikPen (U-100) Insulin) cholestyramine (with sugar) 4 gram 4 g PO BID 30 days #378 grams 05/19/25 oral powder lidocaine 4 % topical patch 1 patch topical DAILY PRN pain #10 05/23/25 (Lidocaine Pain Relief) ea oxycodone 5 mg tablet 5 mg PO Q6H PRN pain #10 tab s 05/23/25 Allergies Allergy/AdvReac Type Severity Reaction Status Date / Time doxycycline Allergy Intermediate Itching Verified 05/23/25 13:35 levofloxacin Allergy Intermediate Itching Verified 05/23/25 13:35 metformin Allergy Intermediate diarrhea Verified 05/23/25 13:35 morphine (MORPHINE) Allergy Intermediate ITCHING Verified 05/23/25 13:35 tetracycline Allergy Intermediate Itching Verified 05/23/25 13:35 cefazolin AdvReac Mild Diarrhea, Verified 05/23/25 13:35 itchy Review of Systems 2 Constitutional: Constitutional: Reports as per [facility] Past Medical History Medical History CKD stage 3 due to type 2 diabetes mellitus Hypertensive retinopathy Nicotine dependence, cigarettes, uncomplicated Tubular adenoma of colon Restless leg syndrome Mild persistent asthma Diabetes mellitus, with long-term current use of insulin Pure hypercholesterolemia GERD (gastroesophageal reflux disease) Precordial chest pain Essential hypertension Non-rheumatic aortic stenosis Loss of hearing Anemia Asthma Surgical History History of esophagogastroduodenoscopy (EGD) History of colonoscopy (~11/09/22) History of cholecystectomy History of implantation of penile prosthesis Family History Family History Father No problems noted. Mother No problems noted. Family/Other FH: mental illness Brother In good health Sister In good health Son In good health Daughter In good health Other Mental health disorder Social History Social History Household Members: None Housing: Apartment Do you presently have visiting nurse or other home services: No Alcohol intake: current Alcohol intake frequency: holidays/special occasions only Alcohol type: hard liquor Patient Tobacco Use Status: Current everyday Tobacco user Tobacco use type: Cigarette Cigarettes Per Day: 10 Smoked in Last 30 Days: Yes e-Cigarette/Vaping Use: Never Used Second Hand Smoke Exposure: No Use of substances other than those prescribed or required for medical reasons: Refusing to respond Advance Directives: No Advance Directives Information Provided: No Do you have a plan to hurt others: No Plan service: No Current occupational status: disabled Cognitive needs: No Hearing needs: No Vision needs: Yes Physical Exam ED Vital Signs: Vital Signs - 24 hr 05/23/25 13:33 05/23/25 16:18 Temperature 98.0 F Pulse Rate 105 H 89 Respiratory Rate 16 15 Blood Pressure 119/58 L 129/60 Pulse Oximetry 95 98 Oxygen Delivery Method Room Air Room Air BMI result Body Mass Index 23.9 Const Other: * Gen: ?Overall well-appearing patient * HEENT: PERRLA, EOMI, MMM, * Neck: Supple, no LAD * CV: RRR, no obvious murmurs appreciated * Resp: ?No wheezing rales rhonchi no stridor moving air well, left-sided ribcage tenderness, no bruising no crepitus no rashes * Abd: ?Bowel sounds are present, no tenderness no rebound no rigidity * MSK: FROM, strength 5/5 all extremities * Skin: Warm, dry, intact, * Neuro: ?Alert and oriented x3, moving upper and lower extremities symmetrically, no obvious facial asymmetry noted Course Course Course Narrative: RME, this is a rapid medical exam performed by Christopher Turner please refer to primary provider for complete H&P- 74-year-old male presents for evaluation of left flank pain. He was seen here on Monday, he had labs, EKG, chest CT and was ultimately discharged. His pain continues. Plan for urinalysis though he denies any blood in the urine or difficulty urinating., repeat labs and repeat EKG. Medications Administered Discontinued Medications Generic Name Dose Route Start Last Admin Trade Name Freq PRN Reason Stop Dose Admin Ketorolac Tromethamine 15 mg 05/23/25 16:14 05/23/25 16:29 Ketorolac Tromethamine 15 Mg/Ml Vial IVPUSH 05/23/25 16:15 15 mg ONCE ONE Administration Oxycodone HCl 5 mg 05/23/25 16:14 05/23/25 16:29 Oxycodone Hcl Immed Release 5 Mg Tablet PO 05/23/25 16:15 5 mg ONCE ONE Administration Procedures Nerve Block Nerve Block 1: Nerve Blocks: intercostal Procedure Successful: Yes Patient Tolerated Procedure: well Complications: none Additional Comments: 10 cc 2% lidocaine left-sided intercostal nerve block Verbal consent obtained, patient tolerated procedure well, reported improvement in his symptoms, has not had any dyspnea lung sounds are clear nothing to suspect pneumothorax postprocedure Injected with a 27 gauge needle Medical Decision Making Medical Decision Making MDM Narrative: Presenting with chest pain, did not endorse that he fell initially, does have left-sided ribcage pain with a healing left rib fracture, no fevers or chills, cardiac workup reassuring, no hypoxia persistent tachycardia no PE risk factors elicited, intercostal nerve block was performed with improvement of his symptoms, I will also provide with some pain medication outpatient basis. Differential Diagnosis Differential Diagnoses: The differential diagnosis associated with the presentation includes (ACS, pneumothorax, aortic dissection, PE, Boerhaave syndrome) Patient has nonspecific leukocytosis, initially his heart rate was over 90 due to discomfort, leukocytosis is due to smoking, there is really no suspicion for infection otherwise Admission/Observation Consideration of admission/observation: Escalation of care including admission/observation considered 2022 Emergency Medicine Coding Guide from [employer] on 05/23/2025 All calculations should be rechecked by clinician prior to use RESULT SUMMARY: 5 Estimated Level of Service Problems: Moderate (4) Risk: High (5) Data: Extensive (5) NARRATIVE MDM: This patient's problem complexity is Moderate as patient: has a new undiagnosed problem with uncertain prognosis but that could be serious. This patient's risk is High due to: overall presentation requiring evaluation for a potentially High-risk process. This patient's data complexity is Extensive due to: -multiple tests ordered/reviewed -independent interpretation of imaging or EKG INPUTS: Number and Complexity ?> 5 = 4: undiagnosed new problem, uncertain outcome (e) Risk level ?> 4 = High Tests ordered ?> 3 = >= Tests results reviewed (excluding labs) ?> 3 = >= Prior external notes reviewed ?> 0 = 0 Assessment requiring and independent historian ?> 0 = No Independent interpretation of tests ?> 1 = Yes Discussed management/test interpretation w/external professional ?> 0 = No Lab Data MDM Lab Attestation statement: I reviewed the patient's lab results. 05/23/25 13:56 05/23/25 13:56 Labs: Lab Results 05/23/25 Range/Units 13:56 WBC 12.2 H (4.8-10.8) X10*3/uL RBC 4.57 L (4.60-5.80) X10*6/uL Hgb 13.9 L (14.0-18.0) g/dl Hct 41.1 L (42.0-52.0) % MCV 89.9 (80.0-98.0) fL MCH 30.4 (27.0-33.0) pg MCHC 33.8 (31.0-36.0) g/dl RDW 13.7 (11.0-16.0) % Plt Count 240 (160-400) X10*3/uL MPV 9.6 (9.4-12.4) fL Immature Gran % (Auto) 0.5 H (0.0-0.4) % Neut % (Auto) 63.3 (45-73) % Lymph % (Auto) 14.5 L (20-40) % [place] % (Auto) 6.9 (2-11) % Eos % (Auto) 14.5 H (0-4) % Baso % (Auto) 0.3 (0-2) % Lymph # (Auto) 1.8 (1.2-4.9) X10*3/uL [place] # (Auto) 0.9 (0.1-1.2) X10*3/uL Eos # (Auto) 1.8 H (0.0-0.4) X10*3/uL Baso # (Auto) 0.0 (0.0-0.2) X10*3/uL Abs Immat Gran (auto) 0.06 H (0.00-0.03) X10*3/uL Absolute Neuts (auto) 7.7 (2.0-8.3) x10*3/uL Absolute Nucleated RBC 0.000 (0.0-0.012) X10*3/uL Nucleated RBC % (auto) 0.0 (0.0-0.2) /100WBC Sodium 137 (135-145) mmol/L Potassium 3.9 (3.3-5.1) mmol/L Chloride 106 (96-108) mmol/L Carbon Dioxide 21 L (22-29) mmol/L Anion Gap 14 (12-20) BUN 23 H (9-16) mg/dL Creatinine 1.22 (0.5-1.4) mg/dL Estim Creat Clear Calc 50.4 Estimated GFR 58 Random Glucose 142 H (60-115) mg/dL Calcium 9.2 (8.4-10.2) mg/dL Total Bilirubin 0.3 (0.0-1.0) mg/dL AST 26 (5-37) U/L ALT 36 (0-40) U/L Alkaline Phosphatase 61 (39-117) U/L Troponin I High Sens 5.3 (<3.5-35.0) ng/L Total Protein 7.5 (6.5-8.0) g/dL Albumin 4.3 (3.5-5.0) g/dL Lipase 35 (8-78) U/L Independent Interpretation I performed an independent interpretation of an: EKG (100 beats per minute otherwise normal ECG without dysrhythmia, AV amber blocks or ST-T changes to suspect underlying ACS, my independent interpretation) and CT Scan (No consolidations, no pneumothorax) Radiology Impression Discussion of test interpretation with radiology: I have reviewed the radiologist's reading. (2022 Emergency Medicine Coding Guide from [employer] on 05/23/2025 All calculations should be rechecked by clinician prior to use RESULT SUMMARY: 5 Estimated Level of Service Problems: Moderate (4) Risk: High (5) Data: Extensive (5) NARRATIVE MDM: This patient's problem complexity is Mod) Prescription Management I considered prescription management with: Pain Medication Chronic Conditions Patient?s care impacted by: Diabetes Discharge Plan Discharge Clinical Impression: Fracture of left eleventh rib, Chest pain, precordial Patient Disposition: Home, Self-Care Instructions: Chest Pain (ED) Additional Instructions: Apply lidocaine patch over the area that hurts the most, Tylenol 975 mg every 6 hours around the clock for the next 2- 3 days, oxycodone only if patches and Tylenol is not helping, Cat scan reveals healing left-sided 11th rib fracture, there are also some stable lung nodules noted on CAT scan as well this is something for PCP to follow up, I performed local nerve block around your fracture with improvement of your symptoms, you will continue having some discomfort however when the medication wears out. Worsening symptoms concerns come back to the ER however I would like you to follow up with your PCP You have had other workup including blood work, cardiac enzymes, EKG all of which has been reassuring Prescriptions: New oxycodone 5 mg tablet 5 mg PO Q6H PRN (Reason: pain) Qty: 10 0RF Rx Instructions: Partial Fill upon patient request. lidocaine [Lidocaine Pain Relief] 4 % adhesive patch,medicated 1 patch topical DAILY PRN (Reason: pain) Qty: 10 0RF No Action (DME) onetouch glucometer See Rx Instructions .Route .MEDSUPPLY Qty: 1 0RF Rx Instructions: As directed (DME) AeroEclipse II Nebulizer Misc See Rx Instructions .Route Qty: 1 0RF Rx Instructions: As directed albuterol sulfate [Ventolin HFA] 90 mcg/actuation HFA aerosol inhaler 2 puff inhalation Q6H PRN (Reason: shortness of breath or wheezing) 30 Days Qty: 18 2RF albuterol sulfate 2.5 mg /3 mL (0.083 %) solution for nebulization 2.5 mg inhalation Q6H PRN (Reason: bronchospasm) 30 Days Qty: 360 0RF (DME) diabetic shoes and inserts 9 See Rx Instructions .Route .MEDSUPPLY Qty: 1 0RF Rx Instructions: As directed gabapentin 300 mg capsule 600 mg PO DAILY 90 Days Qty: 180 3RF (DME) lancets [OneTouch Delica Plus Lancet] 33 gauge misc See Rx Instructions .ROUTE .COMPLEX Qty: 100 1RF Dose Instruction: CHECK BY FINGER STICK ROUTE 4 TIMES EVERY DAY Rx Instructions: CHECK BY FINGER STICK ROUTE 4 TIMES EVERY DAY (DME) OneTouch Verio test strips Strip See Rx Instructions .ROUTE .MEDSUPPLY Qty: 100 11RF Rx Instructions: Use 3 times a day to test BG daily for 30 days Combivent Respimat 20-100 mcg/actuation mist 1 puff inhalation Q6H PRN (Reason: wheezing) 30 Days Qty: 4 4RF amlodipine 5 mg tablet 5 mg PO DAILY 90 Days Qty: 90 1RF pramipexole 0.125 mg tablet 0.125 mg PO BEDTIME 90 Days Qty: 90 1RF cholecalciferol (vitamin D3) 25 mcg (1,000 unit) capsule 25 mcg PO DAILY 90 Days Qty: 90 1RF aspirin 81 mg tablet,delayed release (DR/EC) 81 mg PO DAILY Qty: 90 3RF tamsulosin 0.4 mg capsule 0.4 mg PO DAILY Qty: 90 1RF omeprazole 20 mg capsule,delayed release(DR/EC) 20 mg PO BID Qty: 180 2RF fluticasone propion-salmeterol [Wixela Inhub] 500-50 mcg/dose blister with device 1 inh PO BID 90 Days Qty: 180 3RF ipratropium-albuterol 0.5 mg-3 mg(2.5 mg base)/3 mL solution for nebulization 3 ml inhalation Q6H PRN (Reason: for wheezing) 30 Days Qty: 90 3RF (DME) pen needle, diabetic 31 gauge x 5/16 needle See Rx Instructions .ROUTE .MEDSUPPLY Qty: 1200 11RF Rx Instructions: As directed daily with Lantus sodium polystyrene sulfonate 15 gram Powder 15 g PO BID 30 Days Qty: 453.6 0RF atorvastatin 40 mg tablet 40 mg PO BEDTIME 90 Days Qty: 90 3RF zolpidem 10 mg tablet 10 mg PO BEDTIME 30 Days Qty: 30 0RF cholestyramine (with sugar) 4 gram powder 4 g PO BID 30 Days Qty: 378 0RF Rx Instructions: administer w/meal; avoid other meds within 1hr before or 4-6hr after dose triamcinolone acetonide 0.1 % ointment 1 appl topical BID 7 Days Qty: 30 0RF acetaminophen [Tylenol] 325 mg capsule 650 mg PO Q4H PRN (Reason: pain) Qty: 30 0RF Otezla 30 mg tablet 30 mg PO BID clotrimazole-betamethasone 1-0.05 % cream 1 appl topical BID Qty: 15 0RF glucose [Dex4 Glucose] 4 gram tablet,chewable 16 g PO Q15M PRN (Reason: hypoglycemia) Qty: 100 0RF Rx Instructions: until symptoms of low blood sugar are controlled (DME) Dexcom G7 Sensor Device See Rx Instructions .ROUTE .MEDSUPPLY Qty: 3 5RF Rx Instructions: Use daily As directed to monitor glucose. change q 10 days nicotine 14 mg/24 hr patch 24 hour 1 patch transdermal DAILY 28 Days Qty: 28 0RF (DME) lancets [CareTouch Safety Lancets] 28 gauge misc See Rx Instructions .Route Qty: 100 10RF Rx Instructions: As directed TID insulin glargine [Lantus Solostar U-100 Insulin] 100 unit/mL (3 mL) insulin pen 25 unit subcut QPM 90 Days Qty: 30 3RF Patient Comments: pt took 15 units yesterday insulin lispro [Humalog KwikPen Insulin] 100 unit/mL insulin pen 5 unit subcut BID Qty: 15 1RF Rx Instructions: prn with meals, do not inject if bs <150 Referrals: Sheba Greco MD [Primary Care Provider, Internal Medicine] - 10 days Clinical Impression: Fracture of left eleventh rib; Chest pain, precordial Print Language: Andorran
--- NOTE | 2025-05-23 13:37 | ECG_ITS ---
Test Reason : abd pain Blood Pressure : */* mmHG Vent. Rate : 100 BPM Atrial Rate : 100 BPM P-R Int : 154 ms QRS Dur : 82 ms QT Int : 344 ms P-R-T Axes : 69 50 77 degrees QTcB Int : 443 ms Normal sinus rhythm Normal ECG When compared with ECG of 19-May-2025 09:46, Premature atrial complexes are no longer Present Referred By: Kwabena Turner Electronically Signed By: CHELSIE NIEVES MD
[2025-05-23 14:01] LABS: MANUAL DIFF FLAG NO
[2025-05-23 14:04] LABS: Hematocrit 41.1 % (42.0-52.0); Hemoglobin 13.9 g/dl (14.0-18.0); Imm Gran Abs Auto 0.06 X10*3/uL (0.00-0.03); Imm Gran Pct Auto 0.5 % (0.0-0.4); Lymphocytes Absolute Auto 1.8 X10*3/uL (1.2-4.9); Mean Corpuscular HGB Conc 33.8 g/dl (31.0-36.0); Mean Corpuscular Hemoglobin 30.4 pg (27.0-33.0); Mean Corpuscular Volume 89.9 fL (80.0-98.0); NRBC Abs Auto 0.000 X10*3/uL (0.0-0.012); NRBC Pct Auto 0.0 /100WBC (0.0-0.2); Platelet Count 240 X10*3/uL (160-400); Red Blood Count 4.57 X10*6/uL (4.60-5.80); White Blood Count 12.2 X10*3/uL (4.8-10.8)
[2025-05-23 14:31] LABS: Alanine Aminotransferase 36 U/L (0-40); Albumin Level 4.3 g/dL (3.5-5.0); Alkaline Phosphatase 61 U/L (39-117); Anion Gap 14 (12-20); Aspartate Amino Transferase 26 U/L (5-37); Blood Urea Nitrogen 23 mg/dL (9-16); Calcium 9.2 mg/dL (8.4-10.2); Carbon Dioxide 21 mmol/L (22-29); Chloride 106 mmol/L (96-108); Creatinine Clr Calc Pharmacy 50.4; Estimated Glomerular Filt Rate 58; Lipase 35 U/L (8-78); Potassium 3.9 mmol/L (3.3-5.1); Sodium 137 mmol/L (135-145); Total Protein 7.5 g/dL (6.5-8.0)
[2025-05-23 14:38] LABS: Troponin-I High Sensitivity 5.3 ng/L (<3.5-35.0)
[2025-05-23 16:18] VITALS: BP 129/60; PULSE 89; RESP 15; O2SAT 98
[2025-05-23] MEDS: oxyCODONE HCl Immed Release 5 MG TABLET PO (16:29)
--- OUTSIDE RECORDS SUMMARY | 2025-05-23 16:30 | XMS_ITS | Encounter Summary ---
Author Organization [facility] Address [address] [place] [address] Phone Care Team Providers Care Manufacturer'S Service Representative Name Role Phone Sheba Greco MD Primary Care Provider [phone] Encounter Details Date Type Department Care Team (Late st Contact Info) Description 02/20/2024 Office Communication [facility] [address] [facility] [address] [place] [address] Kurt Carbajal MD [address] [place] [address] Social History Tobacco Use Types [...] on filedocumented in this encounter Care Teams Manufacturer'S Service Representative Relationship Specialty Start Date End Date Sheba Greco MD [address] [place], [place] PCP - General 10/12/20 documented as of this encounter
--- OUTSIDE RECORDS SUMMARY | 2025-05-23 16:30 | XMS_ITS | Clinical Summary ---
Author Organization [employer] Address [address] [place] [address] [address] [place] [address] Care Team Providers Care Grain Scooper Name Role Phone Unavailable Primary Care Provider [...]
--- OUTSIDE RECORDS SUMMARY | 2025-05-23 16:30 | XMS_ITS | Patient Health Record ---
Author Organization [facility] Address [address] [place] [address] Care Team Providers Care Substance Abuse Therapist Name Role Phone Sheba Greco Primary Care Provider Wil Sebastian Unavailable [phone] Allergies Allergen (clinical drug ingredient) Drug/Non Drug [...] Status Risk Notes Problem Colon cancer screening (457165687) Colon cancer screening (Z12.11) Active confirmed Problem Diverticular disease of colon (417290961) Diverticulosis of large intestine without perforation or abscess without bleeding (K57.30) Active confirmed Problem 581233956 Gastroesophageal reflux disease without esophagitis (K21.9) Active confirmed Problem [id number] 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 [address] [place] [address] [id number] [employer] Self - patient is the [...]
[2025-05-23 17:37] VITALS: BP 127/65; PULSE 82; RESP 19; TEMP 36.4; O2SAT 98
== END 2025-05-23 17:39 | disposition home or self-care (01) ==
PROVIDERS: Physician Assistant; Emergency Provider Emergency Medicine; PCP Internal Medicine
DX: S22.32XA Fracture of one rib, left side, initial encounter for closed fracture (principal); R07.89 Other chest pain; I12.9 Hypertensive chronic kidney disease with stage 1 through stage 4 chronic kidney disease, or unspecified chronic kidney disease; E11.22 Type 2 diabetes mellitus with diabetic chronic kidney disease; N18.30 Chronic kidney disease, stage 3 unspecified; F17.210 Nicotine dependence, cigarettes, uncomplicated; Y93.89 Activity, other specified; Y92.89 Other specified places as the place of occurrence of the external cause; W19.XXXA Unspecified fall, initial encounter; Y99.8 Other external cause status; Z79.899 Other long term (current) drug therapy; Z79.4 Long term (current) use of insulin
CPT/HCPCS: 36415; 64420; 80053; 83690; 84484; 85025; 93005; 96374; 99284; J1885

== ENCOUNTER → 2025-05-23 13:37 | Outpatient (BNV) | payer OTHER, SELFPAY | PROVIDERS: Emergency Provider Emergency Medicine; PCP Internal Medicine; Visit Provider Internal Medicine Cardiovascular Disease | DX: R10.9 Unspecified abdominal pain (principal) | CPT/HCPCS: 93010 ==

== ENCOUNTER 2025-06-03 08:07 | Outpatient (AMB) | payer OTHER, SELFPAY ==
--- NOTE | 2025-06-03 08:28 | MHC.OFFVIS ---
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 Patient reports his hand has been stiff for about 3-4 months. He complains of pain at the palm on the right hand as well as numbness and tingling of the 2nd, 3rd, 4th, and 5th digits. He also complains of bilateral 3rd and 4th digit locking and catching. He has tried trigger finger injections in the past. He is currently taking OTC pain meds for his rib pain which is also helping his hand pain. Denies any known injuries or surgeries to the right hand. 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 Patient reports his hand has been stiff for about 3-4 months. He complains of pain at the palm on the right hand as well as numbness and tingling of the 2nd, 3rd, 4th, and 5th digits. He also complains of right 3rd and 4th digit locking and catching. He has tried trigger finger injections in the past. He is currently taking OTC pain meds for his rib pain which is also helping his hand pain. Denies any known injuries or surgeries to the right hand. [facility] Medical History CKD stage 3 due to type 2 diabetes mellitus Hypertensive retinopathy Nicotine dependence, cigarettes, uncomplicated Tubular adenoma of colon Restless leg syndrome Mild persistent asthma Diabetes mellitus, with long-term current use of insulin Pure hypercholesterolemia GERD (gastroesophageal reflux disease) Precordial chest pain Essential hypertension Non-rheumatic aortic stenosis Loss of hearing Anemia Asthma Surgical History History of esophagogastroduodenoscopy (EGD) History of colonoscopy (~11/09/22) History of cholecystectomy History of implantation of penile prosthesis Family History Father No problems noted. Mother No problems noted. Family/Other FH: mental illness Brother In good health Sister In good health Son In good health Daughter In good health Other Mental health disorder Social History Household Members: None Housing: Apartment Do you presently have visiting nurse or other home services: No Alcohol intake: current Alcohol intake frequency: holidays/special occasions only Alcohol type: hard liquor Patient Tobacco Use Status: Current everyday Tobacco user Tobacco use type: Cigarette Cigarettes Per Day: 10 e-Cigarette/Vaping Use: Never Used Second Hand Smoke Exposure: No service: No Current occupational status: disabled Cognitive needs: No Hearing needs: No Vision needs: Yes Review of Systems Const All systems reviewed & are unremarkable except as noted in HPI and below Physical Exam Vital Signs: BMI result Body Mass Index 23.8 Extrem Other: Patient is alert, oriented, and in no acute distress. Neuro: Normal sensation of the tips of all digits of the right hand at this time Vascular: Cap refill brisk Pain: Tenderness to palpation of the A1 bridget of the right index and middle fingers Pain with range of motion of the index and middle fingers of the right hand ROM: Patient is able to make a closed fist and extend all digits of the right hand fully There is no visible or palpable locking and catching in the office today Skin: No lacerations or abrasions. General: No ecchymosis, erythema, or evidence of infection. Psych: Appears grossly normal Affect normal Attitude cooperative Office Procedures AMB Tendon Injection Tendon Injection 64045-Armklc Tendon Sheath Injection All charges added?: Procedure code (CPT) selection complete Assessment & Plan Assessment & Plan (1) Trigger finger, right middle finger: Code(s): M65.331 - Trigger finger, right middle finger Category: Medical Plan 1. Trigger finger, right middle finger Patient is educated about this condition Patient is educated about the treatment options available Patient would like to proceed with steroid injection The risks and benefits of a steroid injection including but not limited to risk of damage to blood vessels, nerves, tendons, infection, skin bleaching, failure to improve symptoms, increased pain, and possible need for further injections or other intervention were discussed with the patient and the patient wishes to proceed with the steroid injection. Once consent was obtained, I sterilely prepped the area over the A1 bridget of the flexor tendon sheath of the right middle finger. I then injected the flexor tendon sheath with a combination of 1 mL of dexamethasone (4mg/ml), and 1% lidocaine. The patient tolerated the procedure well with no complications. If the patient continues to have locking and catching 4-6 weeks following this injection, they may call to schedule appointment to discuss alternative treatment options Follow-up prn 2. Right index finger trigger finger Patient is educated about this condition Patient is educated about the treatment options available At this time, patient is informed that they can not inject multiple fingers at the same time, as given the fact that he has diabetes I can not perform multiple steroid injections Patient understands this and is amenable to this plan Follow-up in 3-4 weeks for right index finger trigger injection, sooner with any acute concerns Coding Level of Care Code New Pt Level 3 (91355) Diagnoses Trigger finger, right middle finger M65.331 CPT Codes Tendon Injection - Tendon Injection 1: 99120-Fcjyct Tendon Sheath Injection ([id number])
[2025-06-03 08:29] VITALS: BMI 23.8
--- OUTSIDE RECORDS SUMMARY | 2025-06-03 08:35 | XMS_ITS | Clinical Summary ---
Author Organization [facility] Address [address] [place] [address] Phone Care Team Providers Care Marketing Ambassador Name Role Phone Sheba Greco MD Primary Care Provider [phone] Allergies Active Allergy Reactions Criticality Noted Date [...] [place] [facility]HE [facility] ACOSTARSE 270 tablet 04/08/20 25 025 Active Active Problems Problem Noted [...] Encounters Date Type Department Care Team Description 04/06/2025 Refill [facility] [address] [place] [address] Kurt Carbajal MD from Last 3 Months [...] 0.5 7.2 Started: 03/16/2018 Smokeless Tobacco: Never Tobacco Cessation:Ready [...] 01/16/2023 1:14 PM EDT Plan of Treatment Health Maintenance Due Date Last Done Comments Colorectal Cancer Screening: Annual FOBT 12/09/2000 Colorectal Cancer Screening: Colonoscopy 12/09/2000 Colorectal Cancer Screening: Sigmoidoscopy 12/09/2000 Diabetes: Ophthalmology Exam 10/30/2020 Diabetes: Pedal Pulse Checked 10/30/2020 Diabetes: Sensory Foot Exam 10/30/2020 Diabetes: Visual Foot Exam 10/30/2020 Diabetes: Hemoglobin A1C 12/06/2020 09/07/2020 Influenza Vaccine (#1) 2025 , 05/21/2020, 06/22/2019, Additional history exists Pneumococcal [...] % PVNMA 09/07/2020 us R[facility] Conversion LAB [id number] LICITED RESULTS Final Result PVNMA from Last 3 Months or Most Recently Relevant to Health Maintenance Insurance [facility] ([id number]) [place] [facility] ([id number]) Care Teams Marketing Ambassador Relationship Specialty Start Date End Date Sheba Greco MD [address] [place], [place] PCP - General 10/12/20
--- OUTSIDE RECORDS SUMMARY | 2025-06-03 08:35 | XMS_ITS | Clinical Summary ---
Author Organization [facility] Address [address] [place] [address] Phone Care Team Providers Care Director Of Strategic Partnerships Name Role Phone Physician, Pcp Unknown Primary [...] - [place] [employer] MEDIC[place] Care Teams Director Of Strategic Partnerships Relationship Specialty Start Date End Date Physician, Pcp Unknown PCP - General 12/11/24
--- OUTSIDE RECORDS SUMMARY | 2025-06-03 08:35 | XMS_ITS | Patient Health Record ---
Author Organization [facility] Address [address] [place] [address] Care Team Providers Care Shell Mold Bonding Machine Operator Name Role Phone Sheba Greco Primary Care Provider Wil Sebastian Unavailable [phone] Allergies Allergen (clinical drug ingredient) Drug/Non Drug [...] Status Risk Notes Problem Colon cancer screening (674910826) Colon cancer screening (Z12.11) Active confirmed Problem Diverticulosis o f large intestine without perforation or abscess without bleeding (K57.30) Active confirmed Problem 951312480 Gastroesophageal reflux disease without esophagitis (K21.9) Active confirmed Problem [id number] History of White's esophagus (Z87.19) Active confirmed Plan Of Treatment Future Test Test Name Order Date UPPER GI ENDOSCOPY 03/29/2012 COLONOSCOPY 03/29/2012 COLONOSCOPY 09/21/2022 Insurance Providers Payer Name Payer Address Payer Phone Subscriber Number Group Number Insured Name Patient Relationship to Insured Coverage Start Date Coverage End Date [facility] [address] [address] [place] [address] [phone] [id number] [employer] Self - patient is the insured Medical (General) History Medical History History ICD Code IDDM HTN White's esophagus(small area) seen on an EGD prior to 2011 GERD--EGD was negative for esophagitis a nd White's in 2011 Denies VA,CVA, and renal disease Cardiac catheterizations-? results Negative screening colonoscopy in 2011 Asthma Surgical History Surgery Date(Month/Year) cholecystectomy penile prosthesis-01/2012
--- OUTSIDE RECORDS SUMMARY | 2025-06-03 08:35 | XMS_ITS | Encounter Summary ---
Author Organization [facility] Address [address] [facility] [address] [place] [address] Phone Care Team Providers Care Stripping Machine Operator Name Role Phone Sheba Greco MD Primary Care Provider [phone] Encounter Details Date Type Department Care Team (Late st Contact Info) Description 04/24/2024 Office Communication [facility] [address] [facility] [address] [place] [address] Kurt Carbajal MD [address] [facility] [address] [place] [address] Social History Tobacco Use Types [...] on filedocumented in this encounter Care Teams Stripping Machine Operator Relationship Specialty Start Date End Date Sheba Greco MD [address] [place], [place] PCP - General 10/12/20 documented as of this encounter
--- OUTSIDE RECORDS SUMMARY | 2025-06-03 08:35 | XMS_ITS | Encounter Summary ---
Author Organization [facility] Address [address] [place] [address] Care Team Providers Care Accounting Consultant Name Role Phone Physician, Pcp Unknown Primary Care Provider Alicia vailable Encounter Details Date Type Department Care Team (Late st Contact Info) Description 2024 Lab Requisition [facility] - Main Lab [address] [facility] [place] [address] Kurt Velasquez MD [address] [facility] [address] [place] [address] Displacement of implanted penile prosthesis, [...] AM EDT) WBC 9.4 4.8 - 10.8 K/[facility] HEMETOLOGY METHOD 2024 1:55 PM EDT [facility] RBC 4.70 4.50 - 5.50 M/[facility] HEMETOLOGY METHOD 2024 1:55 PM EDT [...] maine Result [facility] [address] [place] [address], documented in this encounter Visit Diagnoses Diagnosis Displacement of implanted penile prosthesis, subsequent encounter Urinary tract infection, site not specified documented in this encounter Care Teams Accounting Consultant Relationship Specialty Start Date End Date Physician, Pcp Unknown PCP - General 12/11/24 documented as of this encounter
--- OUTSIDE RECORDS SUMMARY | 2025-06-03 08:35 | XMS_ITS | Clinical Summary ---
Author Organization [employer] Address [address] [place] [address] [address] [place] [address] Care Team Providers Care Multi Purpose Machine Operator Name Role Phone Unavailable Primary [...]
--- OUTSIDE RECORDS SUMMARY | 2025-06-03 08:35 | XMS_ITS | Encounter Summary ---
Author Organization [facility] Address [address] [facility] [address] [place] [address] Phone Care Team Providers Care Furniture Fabricator Name Role Phone Sheba Greco MD Primary Care Provider [phone] Encounter Details Date Type Department Care Team (Late st Contact Info) Description 02/20/2024 Office Communication [facility] [address] [facility] [address] [place] [address] Kurt Carbajal MD [address] [facility] [address] [place] [address] Social History Tobacco Use Types [...] on filedocumented in this encounter Care Teams Furniture Fabricator Relationship Specialty Start Date End Date Sheba Greco MD [address] [place], [place] PCP - General 10/12/20 documented as of this encounter
== END 2025-06-03 09:05 | disposition home or self-care (01) ==
LOC: HO.HOS 08:08
PROVIDERS: PCP Internal Medicine
DX: M65.331 Trigger finger, right middle finger (principal)
CPT/HCPCS: 20550; 99203

== ENCOUNTER → 2025-06-03 08:07 | Outpatient (BNVA) | payer OTHER, SELFPAY | PROVIDERS: PCP Internal Medicine | DX: M65.331 Trigger finger, right middle finger (principal) | CPT/HCPCS: 20550; 99202; J1100; J2003 ==

== ENCOUNTER 2025-06-23 09:21 | Outpatient (AMB) | payer OTHER, SELFPAY ==
--- NOTE | 2025-06-23 10:26 | MHC.OFFVIS ---
Vital Signs 06/23/25 10:27 Height 5 ft 7 in Weight 159 lb 13.362 oz BMI 25.0 BP 120/50 L Blood Pressure Location Rt brachial Position Sitting Pulse 81 Pulse Source Pulse Oximeter Pulse Oximetry (%) 99 Oxygen Delivery Method Room Air Intake Visit Reasons: COPD Drop Press Hand Required: Yes Drop Press Hand Language: Technical Support Internship Services: Drop Press Hand Present Drop Press Hand Name: Cristal Núñez LM Allergies doxycycline Allergy (Intermediate, Verified 06/23/25 10:33) Itching levofloxacin Allergy (Intermediate, Verified 06/23/25 10:33) Itching metformin Allergy (Intermediate, Verified 06/23/25 10:33) diarrhea morphine (MORPHINE) Allergy (Intermediate, Verified 06/23/25 10:33) ITCHING tetracycline Allergy (Intermediate, Verified 06/23/25 10:33) Itching cefazolin Adverse Reaction (Mild, Verified 06/23/25 10:33) Diarrhea, itchy HPI HPI COPD: Details: Jonathon is a pleasant 74 year old male, current 50 pack smoker, with underlying asthma, COPD, DMII, CKDIII, HTN, GERD, Psoriatic arthritis, and Aortic stenosis. He was referred by PCP for pulmonary evaluation. He has a history of COPD and as diagnosed with asthma as a child, never requiring hospitalization related to respiratory distress. He reports multiple first degree relatives with asthma. The patient reports that his breathing is generally well-controlled with the use of Wixela and occasional use of albuterol and a nebulizer for occasional dyspnea, denies frequent coughing, wheezing, or chest tightness. The patient has been smoking since the age of 13 and currently smokes 1/2 ppd. He has never been hospitalized for breathing issues and denies any history of recurrent respiratory infections or occupational exposures to harmful substances. Denies seasonal allergies. [facility] Medical History CKD stage 3 due to type 2 diabetes mellitus Hypertensive retinopathy Nicotine dependence, cigarettes, uncomplicated Tubular adenoma of colon Restless leg syndrome Mild persistent asthma Diabetes mellitus, with long-term current use of insulin Pure hypercholesterolemia GERD (gastroesophageal reflux disease) Precordial chest pain Essential hypertension Non-rheumatic aortic stenosis Loss of hearing Anemia Asthma Surgical History History of esophagogastroduodenoscopy (EGD) History of colonoscopy (~11/09/22) History of cholecystectomy History of implantation of penile prosthesis Family History Father No problems noted. Mother No problems noted. Family/Other FH: mental illness Brother In good health Sister In good health Son In good health Daughter In good health Other Mental health disorder Social History Household Members: None Housing: Apartment Do you presently have visiting nurse or other home services: No Alcohol intake: current Alcohol intake frequency: holidays/special occasions only Alcohol type: hard liquor Patient Tobacco Use Status: Current everyday Tobacco user Tobacco use type: Cigarette Cigarettes Per Day: 10 e-Cigarette/Vaping Use: Never Used Second Hand Smoke Exposure: No service: No Current occupational status: disabled Cognitive needs: No Hearing needs: No Vision needs: Yes Review of Systems Const Denies chills, Denies excessive sweating, Denies fever(s), Denies headache(s) and Denies night sweats Eyes Denies dry eyes, Denies irritation and Denies itchy eyes ENT Reports Normal hearing present, Denies headache(s), Denies nasal congestion, Denies nasal discharge, Denies post nasal drip and Denies sore throat Card Denies chest pain, Denies chest pain at rest, Denies chest pain with activity, Denies claudication, Denies leg edema, Denies dyspnea, Denies dyspnea on exertion, Denies orthopnea and Denies paroxysmal nocturnal dyspnea Resp Denies chest congestion, Denies cough, Denies excessive phlegm production, Denies pain on inspiration, Denies pain with cough, Denies dyspnea, Denies dyspnea on exertion, Denies stridor and Denies wheezing Musc Denies myalgias Neuro Reports Normal hearing present and Denies headache(s) Endo Denies excessive sweating Greg/Lymph Denies lymphadenopathy Aller/Immun Denies itchy eyes, Denies seasonal rhinorrhea and Denies wheezing Physical Exam Vital Signs: Last Vital Signs Pulse 81 06/23/25 10:27 BP 120/50 L 06/23/25 10:27 Pulse Ox 99 06/23/25 10:27 Oxygen Delivery Method Room Air 06/23/25 10:27 BMI result Body Mass Index 25.0 Const General: cooperative, healthy appearing, comfortable, no acute distress, well developed and alert Orientation/consciousness: patient oriented x3 Limitations: no limitations HEENT Head: Yes normal to inspection, Yes normocephalic and Yes atraumatic Ears: hearing grossly normal bilaterally and external ears normal Eyes General: appearance normal, both eyes and all related structures Eyelids: Yes eyelids normal Sclerae: sclerae normal EOM: EOMs intact bilaterally Neck Neck: Yes normal visual inspection and Yes no lymphadenopathy Lymphatic: no lymphadenopathy noted Chest Chest palpation & inspection: normal inspection of the chest Resp Effort & Inspection: normal respiratory effort, able to speak in complete sentences, no audible wheezes, no cough, no stridor, not tachypneic, no tripod positioning and no use of accessory muscles Auscultation: diminished lung sounds Cardio Jugular venous distension: no JVD Rate: regular rate Rhythm: regular rhythm Skin Other: warm, dry General skin exam: no rashes or lesions noted Neuro General: patient oriented x3 Cranial nerves: Yes Normal hearing present Cognition (Neuro): normal cognition Gait exam (Neuro): Normal gait present Extrem General: Yes normal to inspection, Yes capillary refill normal, Yes no clubbing, cyanosis or edema and Yes no pedal edema Psych Appearance: grossly normal and well kempt Speech and movement: Normal speech and movement present and Clear speech present Affect: normal affect Attitude: cooperative Thought process: Normal thought process present Thought content: Normal thought content present Insight: Good insight present (Psych) Judgement: Good judgement present (Psych) Results Reviewed Results Reviewed: [place] [address] CT Scan Report Signed Patient: Jonathon [place] MR#: [id number] : 1950 Acct:[id number] Age/Sex: 74 / M ADM Date: 05/19/25 Loc: HO.ED Attending Dr: Ordering Physician: Rosana Garcia Date of Service: 05/19/25 Procedure(s): CT chest wo IV con Accession Number(s): [id number] cc: Rosana Garcia; Sheba Greco Report Number: [id number]: Total DLP = 294.00 mGy-cm EXAMINATION: CT CHEST WITHOUT IV CONTRAST INDICATION: left lower rib pain s/p fall 3 mo ago COMPARISON: Comparison is made with the prior examination dated 08/09/2024. TECHNIQUE: Helical CT scan of the chest was performed without intravenous contrast. Coronal and sagittal reformatted images were generated and reviewed. This CT exam was performed with one or more of the following dose reduction techniques: automated exposure control, adjustment of the mA and/or kV according to patient size, use of iterative reconstruction technique. DLP: 294 mGy-cm CHEST: THYROID: The thyroid is unremarkable. LUNGS: There is mild dependent atelectasis at both lungs. There is a 3 mm nodule in the left lower lobe (series 4, image 93). There are no focal airspace opacities. MEDIASTINUM: There is no mediastinal lymphadenopathy. JODIE: Evaluation of the hilar regions is limited by lack of intravenous contrast material. CARDIOVASCULATURE: The heart is normal in size. There is no pericardial effusion. The thoracic aorta is normal in caliber. DEGREE OF CORONARY CALCIFICATION: moderate PLEURA: There is no pleural effusion. No pneumothorax. MAIN AIRWAYS: The mainstem bronchi and proximal branches are patent. AXILLA: There is no axillary lymphadenopathy. BONES AND SOFT TISSUES: There is a healing fracture of the lateral aspect of the left 11th rib. UPPER ABDOMEN: The visualized portions of the liver, spleen, and adrenals have an unremarkable unenhanced appearance. CT/CT chest wo IV con IMPRESSION: 1. Healing fracture of the lateral aspect of the left 11th rib. 2. Stable 3 mm left lower lobe nodule. Electronically signed by: Wil Gomes MD 05/19/2025 11:00 AM EDT Dictated By: Wil Gomes MD Signed By: <Electronically signed by Wil Gomes MD in OV> 05/19/25 1100 DD/ 0934 TD/TT: 05/19/25 1050 Home Care Attendant: Assessment & Plan Assessment & Plan (1) COPD (chronic obstructive pulmonary disease): Code(s): J44.9 - Chronic obstructive pulmonary disease, unspecified Category: Medical (2) Nicotine dependence, cigarettes, uncomplicated: Comment: (Current smoker, 1/2pd, 30+PYH) Code(s): F17.210 - Nicotine dependence, cigarettes, uncomplicated Category: Medical (3) Pulmonary nodule: Code(s): R91.1 - Solitary pulmonary nodule Category: Medical Plan The patient will continue current medications, including Wixela and albuterol, as symptoms are well-controlled. A pulmonary function test is scheduled to evaluate lung function further. The patient is advised to contact the clinic if there are any changes in breathing or symptom control. The patient plans to quit smoking by the end of the month and will use nicotine patches to aid cessation. Will enter referral for lung screening program, recent chest CT revealed 3 mm pulmonary nodule of LLL otherwise no significant abnormalities. All questions were answered and patient is in agreement of plan. Will follow up in 3 months or sooner if needed. Orders: Orders PFT pulmonary function test Today J44.9 - Chronic obstructive pulmonary disease, unspecified Referrals Lung Cancer Screening Referral F17.210 - Nicotine dependence, cigarettes, uncomplicated Coding Level of Care Code New Pt Level 4 (51718) Diagnoses COPD (chronic obstructive pulmonary disease) J44.9 Nicotine dependence, cigarettes, uncomplicated F17.210 Pulmonary nodule R91.1
[2025-06-23 10:27] VITALS: BP 120/50; PULSE 81; O2SAT 99; BMI 25.0
--- OUTSIDE RECORDS SUMMARY | 2025-06-23 11:03 | XMS_ITS | Encounter Summary ---
Author Organization [facility] Address [address] [facility] [address] [place] [address] Phone Care Team Providers Care Mold Stacker Name Role Phone Sheba Greco MD Primary Care Provider [phone] Encounter Details Date Type Department Care Team (Late st Contact Info) Description 04/24/2024 Office Communication [facility] [address] [facility] [address] [place] [address] Kurt Carbajal MD [address] [facility] [address] [place] [address] Social History Tobacco Use Types Packs/Day Years Used Date Smoking Tobacco: Every Day Cigarettes 0.5 7.3 Started: 03/16/2018 Smokeless Tobacco: Never Alcohol Use [...] on filedocumented in this encounter Care Teams Mold Stacker Relationship Specialty Start Date End Date Sheba Greco MD [address] [place], [place] PCP - General 10/12/20 documented as of this encounter
--- OUTSIDE RECORDS SUMMARY | 2025-06-23 11:03 | XMS_ITS | Clinical Summary ---
Author Organization [employer] Address [address] [place] [address] 7[address] [place] [address] Care Team Providers Care Waste Duster Name Role Phone Unavailable Primary Care Provider [...] 01/29/2018, 10/02 COVID-19 Vaccine (3 - season) 2025 09/07/2021, 01/06/2021 Influenza Vaccine (#1) 2025 3, [...]
--- OUTSIDE RECORDS SUMMARY | 2025-06-23 11:03 | XMS_ITS | Clinical Summary ---
Author Organization [facility] Address [address] [place] [address] [place] [address] Phone Care Team Providers Care Last Trimmer Name Role Phone Sheba Greco MD Primary Care Provider [phone] Allergies Active Allergy Reactions Criticality Noted Date [...] [place] [address] [place] [address] Kurt Carbajal MD from Last 3 Months [...] 0.5 7.3 Started: 03/16/2018 Smokeless Tobacco: Never Tobacco Cessation:Ready [...] % [facility] 09/07/2020 us [facility] [id number] LICITED RESULTS Final Result PVN[facility] from Last 3 Months or Most Recently Relevant to Health Maintenance Insurance [facility] ([id number]) [place] [facility] ([id number]) Care Teams Last Trimmer Relationship Specialty Start Date End Date Sheba Greco MD [address] [place], [place] PCP - General 10/12/20
--- OUTSIDE RECORDS SUMMARY | 2025-06-23 11:03 | XMS_ITS | Clinical Summary ---
Author Organization [facility] Address [address] [place] [address] Phone Care Team Providers Care Human Resources Benefits Coordinator Name Role Phone Physician, Pcp Unknown Primary [...] 12/09/2001 Zoster Vaccines (1 of 2) 12/09/2001 Depression Screening 10/02/2024 Abdominal Aortic Aneurysm (A AA) Screen 2024 Cholesterol Screening (Lipid Panel) 2024 Colorectal Cancer Screening: Colonoscopy 2024 Falls Risk Assessment 2024 Hepatitis C Screening 2024 Medicare Annual Wellness Visit 2024 Social Influencers of Health Screening 2024 COVID-19 Vaccine (1 - 2023-2 5 season) 2025 Influenza Vaccine (#1) 2025 RSV Immunization Adult [...] - [place] [employer] MEDICARE Care Teams Human Resources Benefits Coordinator Relationship Specialty Start Date End Date Physician, Pcp Unknown PCP - General 12/11/24
--- OUTSIDE RECORDS SUMMARY | 2025-06-23 11:03 | XMS_ITS | Encounter Summary ---
Author Organization [employer] Address [address] [place] [address] Care Team Providers Care Tumbler Machine Operator Name Role Phone Physician, Pcp Unknown Primary Care Provider Alicia vailable Encounter Details Date Type Department Care Team (Late st Contact Info) Description 2024 Lab Requisition [facility] - Main Lab [address] [facility] [place] [address] Kurt Velasquez MD [address] [facility] [address] [place] [address] Displacement of implanted penile prosthesis, [...] AM EDT) WBC 9.4 4.8 - 10.8 K/[facility] LAB HEMETOLOGY METHOD 2024 1:55 PM EDT [facility] RBC 4.70 4.50 - 5.50 M/[facility] LAB HEMETOLOGY METHOD 2024 1:55 PM EDT [facility] Hemoglobin 13.9 13.5 - 17.5 g/dL LAB HEMETOLOGY METHOD 2024 1:55 PM EDT [facility] Hematocrit 43.1 42.0 - 54.0 % LAB HEMETOLOGY METHOD 2024 1:55 PM EDT [facility] MCV 92.7 79.0 - 98.0 FL LAB HEMETOLOGY METHOD 2024 1:55 PM EDT [facility] MCH 29.9 27.0 - 32.0 pcg LAB HEMETOLOGY METHOD 2024 1:55 PM EDT [facility] MCHC 32.3 32.0 - 37.0 g/dL LAB HEMETOLOGY METHOD 2024 1:55 PM EDT [facility] RDW 13.7 11.0 - 15.0 % LAB HEMETOLOGY METHOD 2024 1:55 PM EDT [facility] Platelets 246 130 - 400 K/mcL LAB HEMETOLOGY METHOD 2024 1:55 PM EDT [facility] MPV 10.2 7.0 - 11.0 FL LAB HEMETOLOGY METHOD 2024 1:55 PM EDT [facility] NRBC 0.0 <1.0 % LAB HEMETOLOGY METHOD 2024 1:55 PM EDT [facility] NRBC Absolute 0.00 <0.10 K/mcL LAB HEMETOLOGY METHOD 2024 1:55 PM EDT [facility] Blood Venous blood specimen / Unknown 2024 10:05 AM EDT 2024 12:40 PM EDT us Kurt Velasquez MD LAB BLOOD ORDERABLES [place] Result [facility] [address] [place] [address], documented in this encounter Visit Diagnoses Diagnosis Displacement of implanted penile prosthesis, subsequent encounter Urinary tract infection, site not specified documented in this encounter Care Teams Tumbler Machine Operator Relationship Specialty Start Date End Date Physician, Pcp Unknown PCP - General 12/11/24 documented as of this encounter
--- OUTSIDE RECORDS SUMMARY | 2025-06-23 11:03 | XMS_ITS | Encounter Summary ---
Author Organization [facility] Address [address] [facility] [address] [place] [address] Phone Care Team Providers Care Human Resources Representative Name Role Phone Sheba Greco MD Primary Care Provider [phone] Encounter Details Date Type Department Care Team (Late st Contact Info) Description 02/20/2024 Office Communication [facility] [address] [facility] [address] [place] [address] Kurt Carbajal MD [address] [facility] [address] [place] [address] Social History Tobacco Use Types [...] on filedocumented in this encounter Care Teams Human Resources Representative Relationship Specialty Start Date End Date Sheba Greco MD [address] [place], [place] PCP - General 10/12/20 documented as of this encounter
== END 2025-06-23 10:57 | disposition home or self-care (01) ==
LOC: HO.HPS 09:21
PROVIDERS: PCP Internal Medicine; Referring Provider Internal Medicine; Visit Provider Nurse Practitioner Family
DX: J44.9 Chronic obstructive pulmonary disease, unspecified (principal); F17.210 Nicotine dependence, cigarettes, uncomplicated; R91.1 Solitary pulmonary nodule
CPT/HCPCS: 99204

== ENCOUNTER → 2025-06-23 09:21 | Outpatient (BNVA) | payer OTHER, SELFPAY | PROVIDERS: PCP Internal Medicine; Referring Provider Internal Medicine; Visit Provider Nurse Practitioner Family | DX: M65.321 Trigger finger, right index finger (principal); J44.9 Chronic obstructive pulmonary disease, unspecified; F17.210 Nicotine dependence, cigarettes, uncomplicated; R91.1 Solitary pulmonary nodule | CPT/HCPCS: 20550; 99202; 99212; J1100; J2003 ==

== ENCOUNTER 2025-06-23 14:09 | Outpatient (AMB) | payer OTHER, SELFPAY ==
--- NOTE | 2025-06-23 14:53 | MHC.OFFVIS ---
Vital Signs 06/23/25 15:13 Height 5 ft 7 in Weight 159 lb BMI 24.9 Intake Visit Reasons: Inj-right index finger, trigger 3WK follow up Intake Note: Jonathon is a 74 year old right hand dominant male who presents today for a Right Index Trigger Finger Injection. He received a Right Middle Trigger Finger Injection on 06/03/25. Nutrition Program Instructor Required: Yes Nutrition Program Instructor Language: Senior Consulting Manager Services: Nutrition Program Instructor Present Nutrition Program Instructor Name: Malissa, RMA/LM Allergies doxycycline Allergy (Intermediate, Verified 06/23/25 10:33) Itching levofloxacin Allergy (Intermediate, Verified 06/23/25 10:33) Itching metformin Allergy (Intermediate, Verified 06/23/25 10:33) diarrhea morphine (MORPHINE) Allergy (Intermediate, Verified 06/23/25 10:33) ITCHING tetracycline Allergy (Intermediate, Verified 06/23/25 10:33) Itching cefazolin Adverse Reaction (Mild, Verified 06/23/25 10:33) Diarrhea, itchy HPI HPI Inj-right index finger, trigger 3WK follow up: Details: Jonathon is a 74 year old right hand dominant male who presents today for a Right Index Trigger Finger Injection. He received a Right Middle Trigger Finger Injection on 06/03/25. [facility] Medical History CKD stage 3 due to type 2 diabetes mellitus Hypertensive retinopathy Nicotine dependence, cigarettes, uncomplicated Tubular adenoma of colon Restless leg syndrome Mild persistent asthma Diabetes mellitus, with long-term current use of insulin Pure hypercholesterolemia GERD (gastroesophageal reflux disease) Precordial chest pain Essential hypertension Non-rheumatic aortic stenosis Loss of hearing Anemia Asthma Surgical History History of esophagogastroduodenoscopy (EGD) History of colonoscopy (~11/09/22) History of cholecystectomy History of implantation of penile prosthesis Family History Father No problems noted. Mother No problems noted. Family/Other FH: mental illness Brother In good health Sister In good health Son In good health Daughter In good health Other Mental health disorder Social History Household Members: None Housing: Apartment Do you presently have visiting nurse or other home services: No Alcohol intake: current Alcohol intake frequency: holidays/special occasions only Alcohol type: hard liquor Patient Tobacco Use Status: Current everyday Tobacco user Tobacco use type: Cigarette Cigarettes Per Day: 10 e-Cigarette/Vaping Use: Never Used Second Hand Smoke Exposure: No service: No Current occupational status: disabled Cognitive needs: No Hearing needs: No Vision needs: Yes Review of Systems Const All systems reviewed & are unremarkable except as noted in HPI and below Physical Exam Vital Signs: BMI result Body Mass Index 24.9 Office Procedures AMB Tendon Injection Tendon Injection [id number] Tendon Sheath Injection All charges added?: Procedure code (CPT) selection complete Assessment & Plan Assessment & Plan (1) Trigger finger, right index finger: Code(s): M65.321 - Trigger finger, right index finger Category: Medical Plan 1. Trigger finger, right index finger Patient is educated about this condition Patient is educated about the treatment options available Patient would like to proceed with steroid injection The risks and benefits of a steroid injection including but not limited to risk of damage to blood vessels, nerves, tendons, infection, skin bleaching, failure to improve symptoms, increased pain, and possible need for further injections or other intervention were discussed with the patient and the patient wishes to proceed with the steroid injection. Once consent was obtained, I sterilely prepped the area over the A1 bridget of the flexor tendon sheath of the right index finger. I then injected the flexor tendon sheath with a combination of 1 mL of dexamethasone (4mg/ml), and 1% lidocaine. The patient tolerated the procedure well with no complications. If the patient continues to have locking and catching 4-6 weeks following this injection, they may call to schedule appointment to discuss alternative treatment options Follow-up prn Coding Level of Care Code Est Pt Level 3 (24734) Diagnoses Trigger finger, right index finger M65.321 CPT Codes Tendon Injection - Tendon Injection 1: [id number] Tendon Sheath Injection ([id number])
[2025-06-23 15:13] VITALS: BMI 24.9
== END 2025-06-23 15:07 | disposition home or self-care (01) ==
LOC: HO.HOS 14:10
PROVIDERS: PCP Internal Medicine
DX: M65.321 Trigger finger, right index finger (principal)
CPT/HCPCS: 20550; 99213

== ENCOUNTER 2025-06-26 10:36 | Outpatient (AMB) | payer OTHER, SELFPAY ==
--- NOTE | 2025-06-26 11:04 | A.OFFVIS_ITS ---
Intake Intake Visit Reasons: DM Suction Plate Carrier Cleaner Required: Yes Suction Plate Carrier Cleaner Language: Wealth Management Manager Name: ciro [id number] Accompanied by: Self / Same As Patient Allergies doxycycline Allergy (Intermediate, Verified 06/23/25 10:33) Itching levofloxacin Allergy (Intermediate, Verified 06/23/25 10:33) Itching metformin Allergy (Intermediate, Verified 06/23/25 10:33) diarrhea morphine (MORPHINE) Allergy (Intermediate, Verified 06/23/25 10:33) ITCHING tetracycline Allergy (Intermediate, Verified 06/23/25 10:33) Itching cefazolin Adverse Reaction (Mild, Verified 06/23/25 10:33) Diarrhea, itchy HPI Comprehensive Diabetes Asmnt Most Recent Diabetes Results: Hemoglobin A1c 7.7 % 07/03/18 Microalb/Creat Ratio, (<30) 172.9 ug/mg cr H 11/13/24 Cholesterol, (<200) 117 mg/dL 11/13/24 HDL Cholesterol, (>40) 62 mg/dL 11/13/24 Triglycerides, (<150) 54 mg/dL 11/13/24 Creatinine, (0.5-1.4) 1.22 mg/dL 05/23/25 BUN, (9-16) 23 mg/dL H 05/23/25 Sodium, (135-145) 137 mmol/L 05/23/25 Potassium, (3.3-5.1) 3.9 mmol/L 05/23/25 Chloride, (96-108) 106 mmol/L 05/23/25 Carbon Dioxide, (22-29) 21 mmol/L L 05/23/25 Calcium, (8.4-10.2) 9.2 mg/dL 05/23/25 AST, (5-37) 26 U/L 05/23/25 ALT, (0-40) 36 U/L 05/23/25 Total Protein, (6.5-8.0) 7.5 g/dL 05/23/25 Albumin, (3.5-5.0) 4.3 g/dL 05/23/25 [facility] Medical History CKD stage 3 due to type 2 diabetes mellitus Hypertensive retinopathy Nicotine dependence, cigarettes, uncomplicated Tubular adenoma of colon Restless leg syndrome Mild persistent asthma Diabetes mellitus, with long-term current use of insulin Pure hypercholesterolemia GERD (gastroesophageal reflux disease) Precordial chest pain Essential hypertension Non-rheumatic aortic stenosis Loss of hearing Anemia Asthma Surgical History History of esophagogastroduodenoscopy (EGD) History of colonoscopy (~11/09/22) History of cholecystectomy History of implantation of penile prosthesis Family History Father No problems noted. Mother No problems noted. Family/Other FH: mental illness Brother In good health Sister In good health Son In good health Daughter In good health Other Mental health disorder Social History Household Members: None Housing: Apartment Do you presently have visiting nurse or other home services: No Alcohol intake: current Alcohol intake frequency: holidays/special occasions only Alcohol type: hard liquor Patient Tobacco Use Status: Current everyday Tobacco user Tobacco use type: Cigarette Cigarettes Per Day: 10 e-Cigarette/Vaping Use: Never Used Second Hand Smoke Exposure: No service: No Current occupational status: disabled Cognitive needs: No Hearing needs: No Vision needs: Yes Assessment & Plan Assessment & Plan (1) Uncontrolled type 2 diabetes mellitus with hyperglycemia, with long-term current use of insulin: Code(s): E11.65 - Type 2 diabetes mellitus with hyperglycemia; Z79.4 - [facility] (current) use of insulin Plan: Learning objectives: The patient was provided with verbal and written education on the following topics as outlined below. Assess patient education level/literacy/barriers, patient has stopped using Dexcom G7. Patient did not bring glucometer to today's visit. Patient questions/concerns, patient's last A1c on 05/12/2025 7.1% Patient reports that he is taking Lantus 22 units daily In the mornings when he wakes up reports his glucose is in the low 70s Instructed patient to reduce Lantus from 25 units to 22 units if glucose is less than 200 mg/dL in the evening, if it is greater than 200 mg in the evening continue to take Lantus 25 units Patient declined to make follow-up appointment with Diabetes Education The patient was provided with the opportunity to ask questions and all questions were answered. Topics covered in today?s session included: Insulin/Injectables (If applicable) * Storage/care of insulin?? * Injection sites? * Site rotation? * Onset, peak, duration * Drawing up insulin? * Injecting insulin/other injectables? * Sharps disposal Continuous blood glucose monitoring (if applicable) Hypoglycemia and Hyperglycemia * Signs and symptoms? * Causes?? * Treatment? * Preventing hypoglycemia? * When to seek medical attention Target Goals: * Blood glucose targets and how you feel when your blood glucose is in and out of your target ranges. * Monitoring and knowing your A1C. * What can make blood glucose go up and down and preventing high and low blood g lucose. * Review of blood sugar targets in expected goal range and outside of expected goal range. * Problem solving and preventing hyper/hypoglycemia. * Sick day management of diabetes. * Using blood sugar results in decision making process in managing diabetes. ?Patient was receptive to information provided and participated in the discussion. Asked?appropriate questions and demonstrated good understanding of the topics discussed.? ? Educational Materials: The patient was provided with the following written educational materials: Target Goal handout Patient Response to instructions: Comprehension of Instructions: poor Readiness to make changes:? Pre contemplation How confident they feel about making changes: Poor Portions of this note were created using voice recognition software, please excuse any words or phrases that may have been misinterpreted. Patient Instructions: Make appointment with certified lactation educator if needed Coding Level of Care Code Est Pt Level 1 (59593) Diagnoses Uncontrolled type 2 diabetes mellitus with hyperglycemia, with long-term current use of insulin E11.65; Z79.4
== END 2025-06-26 11:06 | disposition home or self-care (01) ==
LOC: HO.ENCR 10:37
PROVIDERS: PCP Internal Medicine; Visit Provider Registered Nurse Diabetes Educator
DX: E11.65 Type 2 diabetes mellitus with hyperglycemia (principal); Z79.4 Long term (current) use of insulin

== ENCOUNTER → 2025-06-26 10:36 | Outpatient (BNVA) | payer OTHER, SELFPAY | PROVIDERS: PCP Internal Medicine; Visit Provider Registered Nurse Diabetes Educator | DX: E11.65 Type 2 diabetes mellitus with hyperglycemia (principal); Z79.4 Long term (current) use of insulin | CPT/HCPCS: 99211 ==

== ENCOUNTER 2025-07-23 14:09 | Outpatient (AMB) | payer OTHER, SELFPAY ==
[2025-07-23 15:06] VITALS: BP 130/78; PULSE 81; O2SAT 97; BMI 25.3
--- NOTE | 2025-07-23 15:06 | A.OFFVIS_ITS ---
Vital Signs 07/23/25 15:06 Height 5 ft 7 in Weight 161 lb 6.054 oz BMI 25.3 BP 130/78 Blood Pressure Location Lt brachial Position Sitting Pulse 81 Pulse Source Pulse Oximeter Pulse Oximetry (%) 97 Oxygen Delivery Method Room Air Intake Visit Reasons: Rt Shoulder Pain/INJ Intake Note: Patient presents with right shoulder pain, traveling down his arm, he has tried Naproxen, and tylenol arthritis with no relief. He is having trouble sleeping. Disease Education Specialist Required: No Disease Education Specialist Services: Disease Education Specialist Offered & Declined Allergies doxycycline Allergy (Intermediate, Verified 07/23/25 15:16) Itching levofloxacin Allergy (Intermediate, Verified 07/23/25 15:16) Itching metformin Allergy (Intermediate, Verified 07/23/25 15:16) diarrhea morphine (MORPHINE) Allergy (Intermediate, Verified 07/23/25 15:16) ITCHING tetracycline Allergy (Intermediate, Verified 07/23/25 15:16) Itching cefazolin Adverse Reaction (Mild, Verified 07/23/25 15:16) Diarrhea, itchy Medication List - Last Reconciled 07/23/25 by Ashlie Ramirez MD acetaminophen (Tylenol) 650 mg (2 x 325 mg) PO Q4H PRN albuterol sulfate 2.5 mg (3 mL) inhalation Q6H PRN 30 days amlodipine 5 mg PO DAILY 90 days apremilast (Otezla) 30 mg PO BID aspirin 81 mg PO DAILY atorvastatin 40 mg PO BEDTIME 90 days blood sugar diagnostic (OneTouch Verio test strips) Use 3 times a day to test BG daily for 30 days blood-glucose sensor (Besstech G7 Sensor device) Use daily As directed to monitor glucose. change q 10 days cholecalciferol (vitamin D3) 25 mcg PO DAILY 90 days cholestyramine (with sugar) 4 gram 4 grams PO BID 30 days clotrimazole-betamethasone 1-0.05 % 1 appl topical BID [diabetic shoes and inserts As directed] empagliflozin (Jardiance) 25 mg PO QAM fluticasone propion-salmeterol 500-50 mcg/dose (Wixela Inhub) 1 inh PO BID 90 days gabapentin 600 mg (2 x 300 mg) PO DAILY 90 days glucose (Dex4 Glucose) 16 grams (4 x 4 gram) PO Q15M PRN insulin glargine (Lantus Solostar U-100 Insulin) 25 units (0.25 mL) subcut QPM 90 days ipratropium-albuterol 0.5 mg-3 mg(2.5 mg base)/3 mL 3 mL inhalation Q6H PRN 30 days ipratropium-albuterol 20-100 mcg/actuation (Combivent Respimat) 1 puff inhalation Q6H PRN 30 days lancets ([employer] Delica Plus Lancet) CHECK BY FINGER STICK ROUTE 4 TIMES EVERY DAY lancets ([employer] Lancets) As directed TID nebulizers (AeroEclipse II Nebulizer) As directed nicotine 1 patch transdermal DAILY 28 days omeprazole 20 mg PO BID [SCYNEXISuch glucometer As directed] pen needle, diabetic As directed daily with Lantus pramipexole 0.125 mg PO BEDTIME 90 days sodium polystyrene sulfonate 15 grams PO BID 30 days tamsulosin 0.4 mg PO DAILY triamcinolone acetonide 0.1% 1 appl topical BID 1 week Ventolin HFA 90 mcg/actuation (albuterol sulfate) 2 puffs inhalation Q6H PRN 30 days NS zolpidem 10 mg PO BEDTIME 30 days HPI Comments Details: Patient is a 74-year-old male current everyday smoker with asthma, hypertension complicated by retinopathy, hyperlipidemia, diabetes complicated by CKD stage 3, BPH, psoriasis and polyarticular osteoarthritis here today for follow up Interval History: Patient last seen 03/13/25 with me - Otezla 30mg bid (from derm) - He is here requesting right shoulder injection - Received steroid injection Today - On Otezla 30mg bid (from derm) - States that the shoulder injection lasted about 3 months but now he has return of pain to the right shoulder, unable to sleep on the shoulder at night - Has tried Tylenol and Tylenol arthritis with no improvement Rheumatologic History: He was previously on methotrexate but this was discontinued as there was no evidence of inflammatory arthritis. 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 He also complained of left 2nd and 3rd trigger fingers which were injected in 12/2022 with resolution. Despite the recurrence he opted to wear finger splint instead of getting further injections. He also was following up for his rotator cuff impingement of his right shoulder which was injected 07/2023 with improvement. Given that he did not have any active psoriatic arthritis follow up was PRN Initially thought to have psoriatic arthritis and was started on methotrexate. He was only on methotrexate for 2 months and had complete remission of his symptoms. His methotrexate was stopped and there was no further recurrence of inflammatory arthritis. His joint pain was subsequently attributed to polyarticular osteoarthritis. Initial history: This is a 72-year-old male with a past medical history of psoriasis presents for evaluation of multiple joint pain. Three months ago patient started having locking of his left index and middle fingers. Over the last 3 weeks he has been having pain in his right wrist. The pain is worse at night associated with swelling and morning stiffness. He takes Tylenol without relief. States that he has had psoriasis for many years, at least 10 years. Was started on Otezla by Dermatology about a year ago. He denies any back pain. Current Rheumatology Medication(s): Otezla 30mg bid (prescribed by derm) [facility] Medical History CKD stage 3 due to type 2 diabetes mellitus Hypertensive retinopathy Nicotine dependence, cigarettes, uncomplicated Tubular adenoma of colon Restless leg syndrome Mild persistent asthma Diabetes mellitus, with long-term current use of insulin Pure hypercholesterolemia GERD (gastroesophageal reflux disease) Precordial chest pain Essential hypertension Non-rheumatic aortic stenosis Loss of hearing Anemia Asthma Surgical History History of esophagogastroduodenoscopy (EGD) History of colonoscopy (~11/09/22) History of cholecystectomy History of implantation of penile prosthesis Family History Father No problems noted. Mother No problems noted. Family/Other FH: mental illness Brother In good health Sister In good health Son In good health Daughter In good health Other Mental health disorder Social History Household Members: None Housing: Apartment Do you presently have visiting nurse or other home services: No Alcohol intake: current Alcohol intake frequency: holidays/special occasions only Alcohol type: hard liquor Patient Tobacco Use Status: Current everyday Tobacco user Tobacco use type: Cigarette Cigarettes Per Day: 10 e-Cigarette/Vaping Use: Never Used Second Hand Smoke Exposure: No service: No Current occupational status: disabled Cognitive needs: No Hearing needs: No Vision needs: Yes Review of Systems Narrative Review of Systems Constitutional: Denies fever, chills, weight loss ENT: Denies vision changes, eye pain or eye redness, dental caries, dry mouth GI: Denies nausea, vomiting, diarrhea, abdominal pain, change in BM Pulm: Denies SOB, MARKS, hemoptysis, wheezing Cards: Denies chest pain, palpitations Skin: Denies Raynaud's, rash, nail changes, photosensitivity, LAND ACQUISITION SPECIALIST: Denies headaches, weakness, paresthesias, recurrent falls MSK: as per HPI All other systems reviewed and are unremarkable except noted above Physical Exam Exam Exam: Vital signs reviewed Physical Examination CONSTITUITIONAL Patient alert and cooperative. Well appearing and in no apparent painful distress MSK Hands * Right Hand: Able to make a fist. No swelling or tenderness to palpation of the MCPs, PIPs or DIPs. * Left Hand: Able to make a fist. No swelling or tenderness to palpation of the MCPs, PIPs or DIPs. Wrists * Right Wrist: Full ROM to flexion and extension. No swelling or TTP * Left Wrist: Full ROM to flexion and extension. No swelling or TTP Elbows * Right Elbow: Full ROM. No swelling or TTP. No TTP of the medial epicondyle. No TTP of the lateral epicondyle * Left Elbow: Full ROM. No swelling or TTP. No TTP of the medial epicondyle. No TTP of the lateral epicondyle Shoulders * Right shoulder: No swelling noted. No TTP of the AC joint. TTP of the subacromial bursa. No TTP of the posterior shoulder * Left shoulder: No swelling noted. No TTP of the AC joint. No TTP of the subacromial bursa. No TTP of the posterior shoulder Knees * Right knee: Full ROM. No swelling noted. No TTP of the knee joint line. No TTP of pes anserine bursa * Left knee: Full ROM. No swelling noted. No TTP of the knee joint line. No TTP of pes anserine bursa. Ankles * Right ankle: Good ankle dorsiflexion and plantar flexion. No swelling. No TTP of the ankle joint * Left ankle: Good ankle dorsiflexion and plantar flexion. No swelling. No TTP of the ankle joint Feet * Right foot: Negative squeeze test * Left foot: Negative squeeze test Tender points? * No tenderness to palpation of the bilateral trapezius, supraspinatus, anterior costochondral junctions, bilateral suboccipital muscle insertions Vital Signs: Last Vital Signs Pulse 81 07/23/25 15:06 BP 130/78 07/23/25 15:06 Pulse Ox 97 07/23/25 15:06 Oxygen Delivery Method Room Air 07/23/25 15:06 BMI result Body Mass Index 25.3 Results Reviewed Results Reviewed: Laboratory Tests 05/23/25 13:56 WBC 12.2 H RBC 4.57 L Hgb 13.9 L Hct 41.1 L Plt Count 240 Sodium 137 Potassium 3.9 Chloride 106 Carbon Dioxide 21 L BUN 23 H Creatinine 1.22 AST 26 ALT 36 Assessment & Plan Assessment & Plan (1) Psoriatic arthritis: Code(s): L40.50 - Arthropathic psoriasis, unspecified Category: Medical Plan: #PsO Patient is a 74-year-old current everyday smoker here today for. Known history of psoriasis Otezla. Previously thought to have breakthrough psoriatic arthritis however it was then attributed to likely polyarticular osteoarthritis. Continue to monitor off of methotrexate Plan - No additional DMARDs needed - RTC prn (2) Rotator cuff arthropathy of right shoulder: Code(s): M12.811 - Other specific arthropathies, not elsewhere classified, right shoulder Category: Medical Plan: #Right shoulder RTC Patient with known calcific tendonitis and rotator cuff pathology. Previously got steroid injection in 2022 with improvement. Steroid injection done 03/2025 did not last long Plan - Check Shoulder XRs Plan I spent 20 minutes reviewing the record and labs, taking a history, examining the patient, discussing the treatment plan, ordering diagnostic work up and documenting in the medical record Orders: Orders XR shoulder RT min 2V 07/29/25 M25.511 - Pain in right shoulder, M25.512 - Pain in left shoulder XR shoulder LT min 2V 07/29/25 M25.511 - Pain in right shoulder, M25.512 - Pain in left shoulder Coding Level of Care Code Est Pt Level 3 (65923) Diagnoses Psoriatic arthritis L40.50 Rotator cuff arthropathy of right shoulder M12.811
--- OUTSIDE RECORDS SUMMARY | 2025-07-23 20:22 | XMS_ITS | Encounter Summary ---
Author Organization [employer] Address [address] [place] [address] Care Team Providers Care Solar Mechanical Engineer Name Role Phone Physician, Pcp Unknown Primary Care Provider Alicia vailable Encounter Details Date Type Department Care Team (Late st Contact Info) Description 2024 Lab Requisition [facility] - Main Lab [address] [facility] [place] [address] Kurt Velasquez MD [address] [facility] [address] [place] [address] Displacement of implanted penile prosthesis, [...] AM EDT) WBC 9.4 4.8 - 10.8 K/[facility] LAB HEMETOLOGY METHOD 2024 1:55 PM EDT [facility] LAB RBC 4.70 4.50 - 5.50 M/[facility] LAB HEMETOLOGY METHOD 2024 1:55 PM EDT [facility] LAB Hemoglobin 13.9 13.5 - 17.5 g/dL LAB HEMETOLOGY METHOD 2024 1:55 PM EDT [facility] LAB Hematocrit 43.1 42.0 - 54.0 % LAB HEMETOLOGY METHOD 2024 1:55 PM EDT [facility] LAB MCV 92.7 79.0 - 98.0 FL LAB HEMETOLOGY METHOD 2024 1:55 PM EDT [facility] LAB MCH 29.9 27.0 - 32.0 pcg LAB HEMETOLOGY METHOD 2024 1:55 PM EDT [facility] LAB MCHC 32.3 32.0 - 37.0 g/dL LAB HEMETOLOGY METHOD 2024 1:55 PM EDT [facility] LAB RDW 13.7 11.0 - 15.0 % LAB HEMETOLOGY METHOD 2024 1:55 PM EDT [facility] LAB Platelets 246 130 - 400 K/mcL LAB HEMETOLOGY METHOD 2024 1:55 PM EDT [facility] LAB MPV 10.2 7.0 - 11.0 FL LAB HEMETOLOGY METHOD 2024 1:55 PM EDT [facility] LAB NRBC 0.0 <1.0 % LAB HEMETOLOGY METHOD 2024 1:55 PM EDT [facility] NRBC Absolute 0.00 <0.10 K/mcL LAB HEMETOLOGY METHOD 2024 1:55 PM EDT [facility] LAB Blood Venous blood specimen / Unknown 2024 10:05 AM EDT 2024 12:40 PM EDT us Kurt Velasquez MD LAB BLOOD ORDERABLES Che maine Result [facility] LAB [address] [place] [address], documented in this encounter Visit Diagnoses Diagnosis Displacement of implanted penile prosthesis, subsequent encounter Urinary tract infection, site not specified documented in this encounter Care Teams Solar Mechanical Engineer Relationship Specialty Start Date End Date Physician, Pcp Unknown PCP - General 12/11/24 documented as of this encounter
--- OUTSIDE RECORDS SUMMARY | 2025-07-23 20:22 | XMS_ITS | Clinical Summary ---
Author Organization [address] [facility] Address [address] [place] [address] Phone Care Team Providers Care Product Support Representative Name Role Phone Physician, Pcp Unknown Primary [...] Date Last Done Comments Colorectal Cancer Screening: Colonoscopy 1950 DTaP,Tdap,and Td Vaccines (1 - Tdap) 12/09/1970 Pneumococcal Vaccine: 50+ Ye ars (1 of 1 - PCV) 12/09/2001 Zoster Vaccines (1 of 2) 12/09/2001 Depression Screening 10/02/2024 Abdominal Aortic Aneurysm (A AA) Screen 2024 Cholesterol Screening (Lipid Panel) 2024 Falls Risk Assessment 2024 Hepatitis C [...] - [place] [employer] MEDICARE Care Teams Product Support Representative Relationship Specialty Start Date End Date Physician, Pcp Unknown PCP - General 12/11/24
--- OUTSIDE RECORDS SUMMARY | 2025-07-23 20:22 | XMS_ITS | Patient Health Record ---
Author Organization [facility] Address [address] [place] [address] Care Team Providers Care Flooring Installer Name Role Phone Sheba Greco Primary Care Provider Wil Sebastian Unavailable [phone] Allergies Allergen (clinical drug ingredient) Drug/Non Drug Allergy documented on EMR Reaction Allergy Type Onset Date Status Morphine Sulfate Unknown Drug Allergy Active Reason For Referral No Information Medications Medication SIG (Take, Route, Frequency, Duration) Notes Start Date End Date Status traMADol HCl 50mg Ac tive Actos 30mg Not-Takin g Aspir-81 81mg Active Advair Diskus 250mcg Active Folic Acid 1mg Activ e Cartia XT 300mg Acti ve Lantus SoloStar 100 UNIT/ML Subcutaneous ; Duration: 60 Active Pramipexole Dihydrochloride 0.125 MG TOME SEBASTIAN TABLETA POR V A ORAL AL ACOSTARSE Oral; Duration: 90 Active Ipratropium-Albuterol 0.5-2.5 (3) MG/3ML Inhalation; Duration: 30 Active Glucophage 1000mg No t-Taking Triamcinolone & Emollient 0.1% Active FreeStyle Lancets Ac tive PriLOSEC OTC Not-Bennett ing metFORMIN HCl 1000mg Not-Taking Tradjenta 5 MG Oral; Duration: 30 Active Suprep Bowel Prep 1 kit as directed Oral ly as directed; Duration: 1 dose 03/29/2012 Active Otezla 30 MG Oral; Duration: 30 Not-Taking Jardiance 25 MG Oral; Duration: 30 Not-Taking Insulin Syringe 30gauge Active hydrOXYzine HCl 25mg [...] Status Risk Notes Problem Colon cancer screening (561434323) Colon cancer screening (Z12.11) Active confirmed Problem Diverticular disease of colon (389348564) Diverticulosis of large intestine without perforation or abscess without bleeding (K57.30) Active confirmed Problem Gastroesophageal reflux disease without esophagitis (905419612) Gastroesophageal reflux disease without esophagitis (K21.9) Active confirmed Problem History of White's esophagus (58991552059091918) History of White's esophagus (Z87.19) Active confirmed Plan Of Treatment Future Test Test Name Order Date UPPER GI ENDOSCOPY 03/29/2012 COLONOSCOPY 03/29/2012 COLONOSCOPY 09/21/2022 Insurance Providers Payer Name Payer Address Payer Phone Subscriber Number Group Number Insured Name Patient Relationship to Insured Coverage Start Date Coverage End Date [facility] [address] [address] [place] [address] [phone] [id number] [employer] Self - patient is the insured Medical (General) History Medical History History ICD Code IDDM HTN White's esophagus(small area) seen on an EGD prior to 2011 GERD--EGD was negative for esophagitis a nd White's in 2011 Denies [place],CVA, and renal disease Cardiac catheterizations-? results Negative screening colonoscopy in 2011 Asthma Surgical History Surgery Date(Month/Year) cholecystectomy penile prosthesis-01/2012
--- OUTSIDE RECORDS SUMMARY | 2025-07-23 20:22 | XMS_ITS | Clinical Summary ---
Author Organization [employer] Address [address] [place] [address] [address] [place] [address] Care Team Providers Care Um Specialist Name Role Phone Unavailable Primary Care Provider [...]
== END 2025-07-23 15:41 | disposition home or self-care (01) ==
LOC: HO.RHES 14:10
PROVIDERS: PCP Internal Medicine; Visit Provider Student in an Organized Health Care Education/Training Program
DX: L40.50 Arthropathic psoriasis, unspecified (principal); M12.811 Other specific arthropathies, not elsewhere classified, right shoulder
CPT/HCPCS: 99213

== ENCOUNTER → 2025-07-23 14:09 | Outpatient (BNVA) | payer OTHER, SELFPAY | PROVIDERS: PCP Internal Medicine; Visit Provider Student in an Organized Health Care Education/Training Program | DX: L40.50 Arthropathic psoriasis, unspecified (principal); M12.811 Other specific arthropathies, not elsewhere classified, right shoulder | CPT/HCPCS: 99212 ==

== ENCOUNTER 2025-07-29 08:59 | Outpatient (REF) | payer OTHER, SELFPAY ==
--- NOTE | ~2025-07-29 | XR_ITS ---
EXAMINATION: XR SHOULDER, RIGHT CLINICAL INFORMATION: M25.511 - Pain in right shoulder COMPARISON: June 09, 2023 TECHNIQUE: AP external rotation, Grashey, scapular Y, and axillary views of the right shoulder. FINDINGS: Subchondral cyst formation and sclerosis with mild deformity of the greater tuberosity right humerus. Mild sclerosis along the articular surface of the acromioclavicular joint. No acute fracture or dislocation. No lytic or blastic lesions. No soft tissue calcifications. No metallic or radiopaque foreign body. Probable small granuloma, right lung.. XR/XR shoulder RT min 2V IMPRESSION: Degenerative changes, greater tuberosity, right humerus. EXAMINATION: XR SHOULDER, LEFT CLINICAL INFORMATION: M25.511 - Pain in left shoulder COMPARISON: June 09, 2023. TECHNIQUE: AP external rotation, Grashey, scapular Y, and axillary views of the left shoulder. FINDINGS: No acute cortical disruption or malalignment. No lytic or blastic lesions. Mild sclerosis greater tuberosity left humerus. No soft tissue calcifications. No subcutaneous emphysema. No metallic or radiopaque foreign body. IMPRESSION: Mild degenerative changes, greater tuberosity left humerus. Electronically signed by: Nicholas Medeiros MD 07/29/2025 09:27 AM EDT
--- NOTE | ~2025-07-29 | XR_ITS ---
EXAMINATION: XR SHOULDER, RIGHT CLINICAL INFORMATION: M25.511 - Pain in right shoulder COMPARISON: June 09, 2023 TECHNIQUE: AP external rotation, Grashey, scapular Y, and axillary views of the right shoulder. FINDINGS: Subchondral cyst formation and sclerosis with mild deformity of the greater tuberosity right humerus. Mild sclerosis along the articular surface of the acromioclavicular joint. No acute fracture or dislocation. No lytic or blastic lesions. No soft tissue calcifications. No metallic or radiopaque foreign body. Probable small granuloma, right lung.. XR/XR shoulder LT min 2V IMPRESSION: Degenerative changes, greater tuberosity, right humerus. EXAMINATION: XR SHOULDER, LEFT CLINICAL INFORMATION: M25.511 - Pain in left shoulder COMPARISON: June 09, 2023. TECHNIQUE: AP external rotation, Grashey, scapular Y, and axillary views of the left shoulder. FINDINGS: No acute cortical disruption or malalignment. No lytic or blastic lesions. Mild sclerosis greater tuberosity left humerus. No soft tissue calcifications. No subcutaneous emphysema. No metallic or radiopaque foreign body. IMPRESSION: Mild degenerative changes, greater tuberosity left humerus. Electronically signed by: Nicholas Medeiros MD 07/29/2025 09:27 AM EDT
--- OUTSIDE RECORDS SUMMARY | 2025-07-29 09:59 | XMS_ITS | Encounter Summary ---
Author Organization [facility] Address [address] [place] [address] Care Team Providers Care Stockroom Attendant Name Role Phone Physician, Pcp Unknown Primary Care Provider Alicia vailable Encounter Details Date Type Department Care Team (Late st Contact Info) Description 2024 Lab Requisition [facility] - Main Lab [address] [facility] [place] [address] Kurt Velasquez MD [address] [facility] [address] [place] [address] Displacement of implanted penile prosthesis, [...] AM EDT) WBC 9.4 4.8 - 10.8 K/[facility] LAB HEMETOLOGY METHOD 2024 1:55 PM EDT [facility] LAB RBC 4.70 4.50 - 5.50 M/[facility] LAB HEMETOLOGY METHOD 2024 1:55 PM EDT [facility] LAB Hemoglobin 13.9 13.5 - 17.5 g/dL LAB HEMETOLOGY METHOD 2024 1:55 PM EDT [facility] LAB Hematocrit 43.1 42.0 - 54.0 % LAB HEMETOLOGY METHOD 2024 1:55 PM EDT [facility] LAB MCV 92.7 79.0 - 98.0 FL LAB HEMETOLOGY METHOD 2024 1:55 PM EDT [facility] LAB MCH 29.9 27.0 - 32.0 pcg LAB HEMETOLOGY METHOD 2024 1:55 PM EDT [facility] LAB MCHC 32.3 32.0 - 37.0 g/dL LAB HEMETOLOGY METHOD 2024 1:55 PM EDT [facility] LAB RDW 13.7 11.0 - 15.0 % LAB HEMETOLOGY METHOD 2024 1:55 PM EDT [facility] LAB Platelets 246 130 - 400 K/mcL LAB HEMETOLOGY METHOD 2024 1:55 PM EDT [facility] LAB MPV 10.2 7.0 - 11.0 FL LAB HEMETOLOGY METHOD 2024 1:55 PM EDT [facility] LAB NRBC 0.0 <1.0 % LAB HEMETOLOGY METHOD 2024 1:55 PM EDT [facility] LAB NRBC Absolute 0.00 <0.10 K/mcL LAB HEMETOLOGY METHOD 2024 1:55 PM EDT [facility] LAB Blood Venous blood specimen / Unknown 2024 10:05 AM EDT 2024 12:40 PM EDT us Kurt Velasquez MD LAB BLOOD ORDERABLES [place] maine Result [facility] LAB [address] [place] [address], documented in this encounter Visit Diagnoses Diagnosis Displacement of implanted penile prosthesis, subsequent encounter Urinary tract infection, site not specified documented in this encounter Care Teams Stockroom Attendant Relationship Specialty Start Date End Date Physician, Pcp Unknown PCP - General 12/11/24 documented as of this encounter
--- OUTSIDE RECORDS SUMMARY | 2025-07-29 09:59 | XMS_ITS | Clinical Summary ---
Author Organization 299 [facility] Address [address] [place] [address] Phone Care Team Providers Care Pocket Setter Name Role Phone Physician, Pcp Unknown Primary [...] - [place] [employer] [place]ICARE Care Teams Pocket Setter Relationship Specialty Start Date End Date Physician, Pcp Unknown PCP - General 12/11/24
--- OUTSIDE RECORDS SUMMARY | 2025-07-29 10:00 | XMS_ITS | Clinical Summary ---
Author Organization [employer] Address [address] [place] [address] 7[address] [place] [address] Care Team Providers Care Physician Vice President Name Role Phone Unavailable Primary Care Provider [...]
--- OUTSIDE RECORDS SUMMARY | 2025-07-29 10:00 | XMS_ITS | Clinical Summary ---
Author Organization [facility] Address [address] [place] [address] Phone Care Team Providers Care High Speed Operator Name Role Phone Sheba Greco MD Primary Care Provider [phone] Allergies Active Allergy Reactions Criticality Noted Date [...] ACOSTARSE 270 tablet 04/08/20 25 025 Active Problems Problem Noted Date [...] Date Smoking Tobacco: Every Day Cigarettes 0.5 7.4 Started: 03/16/2018 Smokeless Tobacco: Never Tobacco Cessation:Ready [...] % [facility] 09/07/2020 us [facility] LAB [id number] LICITED RESULTS Final Result [facility]NMA from Last 3 Months or Most Recently Relevant to Health Maintenance Insurance [facility] ([id number]) [place] [facility] ([id number]) Care Teams High Speed Operator Relationship Specialty Start Date End Date Sheba Greco MD [address] [place], [place] PCP - General 10/12/20
--- OUTSIDE RECORDS SUMMARY | 2025-07-29 10:00 | XMS_ITS | Encounter Summary ---
Author Organization [facility] Address [address] [facility] [address] [place] [address] Phone Care Team Providers Care Tire Builder Name Role Phone Sheba Greco MD Primary Care Provider [phone] Encounter Details Date Type Department Care Team (Late st Contact Info) Description 02/20/2024 Office Communication [facility] [address] [facility] [address] [place] [address] Kurt Carbajal MD [address] [facility] [address] [place] [address] Social History Tobacco Use Types Packs/Day Years Used Date Smoking Tobacco: Every Day Cigarettes 0.5 7.4 Started: 03/16/2018 Smokeless Tobacco: Never Alcohol Use [...] on filedocumented in this encounter Care Teams Tire Builder Relationship Specialty Start Date End Date Sheba Greco MD [address] [place], [place] PCP - General 10/12/20 documented as of this encounter
--- OUTSIDE RECORDS SUMMARY | 2025-07-29 10:00 | XMS_ITS | Encounter Summary ---
Author Organization [facility] Address [address] [facility] [address] [place] [address] Phone Care Team Providers Care Permit Review Assistant Name Role Phone Sheba Greco MD Primary Care Provider [phone] Encounter Details Date Type Department Care Team (Late st Contact Info) Description 04/24/2024 Office Communication [facility] [address] [facility] [address] [place] [address] Kurt Carbajal MD [address] [facility] [address] [place] [address] Social History Tobacco Use Types [...] on filedocumented in this encounter Care Teams Permit Review Assistant Relationship Specialty Start Date End Date Sheba Greco MD [address] [place], [place] PCP - General 10/12/20 documented as of this encounter
--- OUTSIDE RECORDS SUMMARY | 2025-07-29 10:00 | XMS_ITS | Patient Health Record ---
Author Organization [facility] Address [address] [place] [address] Care Team Providers Care Housekeeper Hospital Name Role Phone Sheba Greco Primary Care Provider Wil Sebastian Unavailable [phone] Allergies Allergen (clinical drug ingredient) Drug/Non Drug [...] Status Risk Notes Problem Colon cancer screening (575378808) Colon cancer screening (Z12.11) Active confirmed Problem Diverticular disease of colon (120734904) Diverticulosis of large intestine without perforation or abscess without bleeding (K57.30) Active confirmed Problem Gastroesophageal reflux disease without esophagitis (849192489) Gastroesophageal reflux disease without esophagitis (K21.9) Active confirmed Problem History of White's esophagus (36373766947534633) History of White's esophagus (Z87.19) Active confirmed Plan Of Treatment Future Test Test Name Order Date UPPER GI ENDOSCOPY 03/29/2012 COLONOSCOPY 03/29/2012 COLONOSCOPY 09/21/2022 Insurance Providers Payer Name Payer Address Payer Phone Subscriber Number Group Number Insured Name Patient Relationship to Insured Coverage Start Date Coverage End Date [facility] [address] [address] [place] [phone] [id number] [employer] Self - patient is the insured Medical (General) History Medical History History ICD Code IDDM HTN White's esophagus(small area) seen on an EGD prior to 2011 GERD--EGD was negative for esophagitis a nd White's in 2011 Denies MT,CVA, and renal disease Cardiac catheterizations-? results Negative screening colonoscopy in 2011 Asthma Surgical History Surgery Date(Month/Year) cholecystectomy penile prosthesis-01/2012
== END 2025-07-29 09:00 | disposition home or self-care (01) ==
LOC: HO.XRAY 08:59
PROVIDERS: PCP Internal Medicine; Visit Provider Student in an Organized Health Care Education/Training Program
DX: M25.511 Pain in right shoulder (principal); M25.512 Pain in left shoulder
CPT/HCPCS: 73030

== ENCOUNTER → 2025-07-29 09:03 | Outpatient (BNV) | payer OTHER, SELFPAY | PROVIDERS: PCP Internal Medicine; Visit Provider Radiology Diagnostic Radiology | DX: M19.011 Primary osteoarthritis, right shoulder (principal); M19.012 Primary osteoarthritis, left shoulder | CPT/HCPCS: 73030 ==

== ENCOUNTER 2025-08-11 09:04 | Outpatient (AMB) | payer OTHER, SELFPAY ==
[2025-08-11 09:09] VITALS: BP 140/70; PULSE 109; TEMP 36.2; O2SAT 98; BMI 24.8
--- NOTE | 2025-08-11 09:09 | A.OFFPC_ITS ---
Vital Signs 08/11/25 09:09 08/11/25 09:23 Height 5 ft 7 in Weight 158 lb 6 oz BMI 24.8 BP 140/70 H 138/70 Blood Pressure Location Lt brachial Lt brachial Position Sitting Sitting Pulse 109 H Pulse Source Pulse Oximeter Temp 97.1 F Temp Source Temporal Artery Scan Pulse Oximetry (%) 98 Oxygen Delivery Method Room Air Intake Visit Reasons: annual exam - see comments Respiratory Services Manager Required: No Accompanied by: Self / Same As Patient Allergies doxycycline Allergy (Intermediate, Verified 08/11/25 09:24) Itching levofloxacin Allergy (Intermediate, Verified 08/11/25 09:24) Itching metformin Allergy (Intermediate, Verified 08/11/25 09:24) diarrhea morphine (MORPHINE) Allergy (Intermediate, Verified 08/11/25 09:24) ITCHING tetracycline Allergy (Intermediate, Verified 08/11/25 09:24) Itching cefazolin Adverse Reaction (Mild, Verified 08/11/25 09:24) Diarrhea, itchy Medication List - Last Reconciled 08/11/25 by Sheba Corbett MD acetaminophen (Tylenol) 650 mg (2 x 325 mg) PO Q4H PRN albuterol sulfate 2.5 mg (3 mL) inhalation Q6H PRN 30 days amlodipine 5 mg PO DAILY 90 days apremilast (Otezla) 30 mg PO BID aspirin 81 mg PO DAILY atorvastatin 40 mg PO BEDTIME 90 days blood sugar diagnostic (OneTouch Verio test strips) Use 3 times a day to test BG daily for 30 days blood-glucose sensor (Central Test G7 Sensor device) Use daily As directed to monitor glucose. change q 10 days cholecalciferol (vitamin D3) 25 mcg PO DAILY 90 days cholestyramine (with sugar) 4 gram 4 grams PO BID 30 days clotrimazole-betamethasone 1-0.05 % 1 appl topical BID [diabetic shoes and inserts As directed] empagliflozin (Jardiance) 25 mg PO QAM fluticasone propion-salmeterol 500-50 mcg/dose (Wixela Inhub) 1 inh PO BID 90 days gabapentin 600 mg (2 x 300 mg) PO DAILY 90 days glucose (Dex4 Glucose) 16 grams (4 x 4 gram) PO Q15M PRN insulin glargine (Lantus Solostar U-100 Insulin) 25 units (0.25 mL) subcut QPM 90 days ipratropium-albuterol 0.5 mg-3 mg(2.5 mg base)/3 mL 3 mL inhalation Q6H PRN 30 days ipratropium-albuterol 20-100 mcg/actuation (Combivent Respimat) 1 puff i nhalation Q6H PRN 30 days lancets (Ameibouch Delica Plus Lancet) CHECK BY FINGER STICK ROUTE 4 TIMES EVERY DAY lancets (Viva la Vita Safety Lancets) As directed TID nebulizers (AeroEclipse II Nebulizer) As directed nicotine 1 patch transdermal DAILY 28 days omeprazole 20 mg PO BID [Bitcoin Brothersuch glucometer As directed] pen needle, diabetic As directed daily with Lantus pramipexole 0.125 mg PO BEDTIME 90 days sodium polystyrene sulfonate 15 grams PO BID 30 days tamsulosin 0.4 mg PO DAILY triamcinolone acetonide 0.1% 1 appl topical BID 1 week Ventolin HFA 90 mcg/actuation (albuterol sulfate) 2 puffs inhalation Q6H PRN 30 days NS zolpidem 10 mg PO BEDTIME 30 days Tobacco use date assessed: 08/11/25 Fall risk assessment: No Falls in past year Last assessed Fall Risk: 08/11/25 Dental Screening Dental Screen Date: 08/11/25 Did you have a dental visit in the last 12 months?: Yes Did you have a dental problem in the last 6 months where you did not have access to dental care?: No Was dental information given to patient?: Patient has dentist HPI HPI Comments History of Present Illness Details The patient is a 74-year-old male presenting for his annual physical exam. He has a history of type 2 diabetes with a last HbA1c of 7.9% and has associated microalbuminuria with a glomerular filtration rate of 58, for which he follows with nephrology. His medications for diabetes include Jardiance 25 mg. The patient's history also includes hypertension, hyperlipidemia, mild stable anemia, psoriasis, and psoriatic arthritis. He takes amlodipine 5 mg for blood pressure, Otezla for psoriasis, baby aspirin, and atorvastatin 40 mg. His psoriatic arthritis is reported to be controlled, and he follows with a beater and pulper feeder. For chronic obstructive pulmonary disease (COPD), he uses Wixela and follows with a supervisor matrix. He is also prescribed albuterol and Combivent. His last colonoscopy in 2022 revealed a tubular adenoma, with a follow-up recommended in 2027. Past surgical history is significant for a cholecystectomy and a penile prosthesis. He is up to date on his pneumonia and tetanus vaccines. The patient's current medications also include vitamin D and cholestyramine. Has psoriatic arthritis follow by Rheumatology and complains of left hand pain and I will refer him to physical therapy. [facility] Medical History (Updated 08/11/25 @ 09:40 by Sheba Corbett MD) CKD stage 3 due to type 2 diabetes mellitus Hypertensive retinopathy Nicotine dependence, cigarettes, uncomplicated Tubular adenoma of colon Restless leg syndrome Mild persistent asthma Diabetes mellitus, with long-term current use of insulin Pure hypercholesterolemia GERD (gastroesophageal reflux disease) Precordial chest pain Essential hypertension Non-rheumatic aortic stenosis Loss of hearing Anemia Asthma Surgical History History of esophagogastroduodenoscopy (EGD) History of colonoscopy (~11/09/22) History of cholecystectomy History of implantation of penile prosthesis Family History Father No problems noted. Mother No problems noted. Family/Other FH: mental illness Brother In good health Sister In good health Son In good health Daughter In good health Other Mental health disorder Social History (Updated 08/11/25 @ 09:30 by Sheba Corbett MD) Household Members: None Housing: Apartment Do you presently have visiting nurse or other home services: No Alcohol intake: current Alcohol intake frequency: holidays/special occasions only Alcohol type: hard liquor Patient Tobacco Use Status: Current everyday Tobacco user Tobacco use type: Cigarette Cigarettes Per Day: 10 e-Cigarette/Vaping Use: Never Used Second Hand Smoke Exposure: No service: No Current occupational status: disabled Cognitive needs: No Hearing needs: No Vision needs: Yes Questionnaire PHQ-9 Over the last 2 weeks, how often have you been bothered by any of the following problems? 1. Little interest or pleasure in doing things: not at all 2. Feeling down, depressed, or hopeless: not at all 3. Trouble falling or staying asleep, or sleeping too much: not at all 4. Feeling tired or having little energy: not at all 5. Poor appetite or overeating: not at all 6. Feeling bad about yourself - or that you are a failure or have let yourself or your family down: not at all 7. Trouble concentrating on things, such as reading the newspaper or watching television: not at all 8. Moving or speaking so slowly that other people could have noticed. Or the opposite - being so fidgety or restless that you have been moving around a lot more than usual: not at all 9. Thoughts that you would be better off or of hurting yourself in some way: not at all Total score: 0 Depression Screening Interpretation: Negative Depression Screening Done: Yes 00166 - PHQ-9 Billing: Yes Source: Developed by Drs. Wil Cummings, Nataly Summers, Benjy Grimes and colleagues, with an educational champ from [employer]. Thrive Questionnaire Date Thrive assessed: 04/09/25 I am a: Patient What is your living situation today?: I have a steady place to live Within the past 12 months, did the food you bought not last and you didn't have the money to get more?: Never true Within the past 12 months, did you worry whether your food would run out before you got money to buy more?: Never true Do you have trouble paying for medicines?: No Do you have trouble getting transportation to medical appointments?: No Do you have trouble paying your heating and electricity bill?: No Do you have trouble taking care of your child, family member or friend?: No Do you have trouble with day-to-day activities such as bathing, preparing meals, shopping, managing finances, etc.?: No Are you currently unemployed and looking for a job?: No Are you interested in more education?: No Please select the resources that you would like help with: None Currently or been in a relationship where the following occur: No concerns rep orted THRIVE Score: 0 AUDIT C Alcohol Use Questionnaire (AUDIT-C) 1. How often do you have a drink containing alcohol?: Never Total Score: 0 Score Reviewed/Action Taken: No HENRIETTA-7 AMB Questionnaire HENRIETTA-7 Date HENRIETTA - 7 assessed: 04/09/25 Feeling nervous, anxious, or on edge: 0 = Not at all Not being able to stop or control worryin = Not at all Worrying too much about different things: 0 = Not at all Trouble relaxin = Not at all Being so restless that it is hard to sit still: 0 = Not at all Becoming easily annoyed or irritable: 0 = Not at all Feeling afraid as if something awful might happen: 0 = Not at all Total HENRIETTA-7 score (0-4 normal; 5-9 mild; 10-14 moderate; 15-21 severe): 0 Source: Developed by Drs. Wil Cummings, Nataly Summers, Benjy Grimes and colleagues, with an educational champ from [employer]. HENRIETTA-7 Assessment Billing HENRIETTA-7 Assessment Tool: HENRIETTA-7 Assessment 23299 Review of Systems Const All systems reviewed & are unremarkable except as noted in HPI and below Card Denies chest pain at rest, Denies chest pain with activity, Denies edema, Denies irregular heart rhythm, Denies claudication, Denies dyspnea, Denies dyspnea on exertion, Denies orthopnea, Denies paroxysmal nocturnal dyspnea and Denies slow heart rate Resp Denies cough, Denies dyspnea and Denies dyspnea on exertion GI Denies abdominal pain, Denies change in bowel habits, Denies excessive flatus, Denies nausea and Denies vomiting Skin/Breast Denies bleeding lesions, Denies changing lesions and Denies rash Neuro Denies behavioral changes, Denies confusion and Denies lack of coordination Psych Denies behavioral changes and Denies confusion Physical exam (Primary Care) Vital Signs: Last Vital Signs Temp 97.1 F 08/11/25 09:09 Pulse 109 H 08/11/25 09:09 BP 140/70 H 08/11/25 09:09 Pulse Ox 98 08/11/25 09:09 Oxygen Delivery Method Room Air 08/11/25 09:09 BMI result Body Mass Index 24.8 Tobacco/Smoking Status: Tobacco use Status Tobacco use date assessed 08/11/25 08/11/25 09:14 Patient Tobacco Use Status Current everyday Tobacco 08/11/25 09:14 Tobacco use type Cigarette 08/11/25 09:14 e-Cigarette/Vaping Use Never Used 08/11/25 09:14 PHQ-9: PHQ-9 Score PHQ-9: Total score 0 08/11/25 09:14 Depression Screening Interpretation: Negative Thrive Assessment: Date of Thrive Assessment Date Thrive assessed 04/09/25 08/11/25 09:14 Currently or been in a relationship where the following occur: No concerns reported Const General: No confusion Orientation/consciousness: patient oriented x3 and No confusion HENMT Head: Yes normal to inspection, Yes normocephalic and Yes atraumatic Ears: external ears normal Eyes General: appearance normal, both eyes and all related structures Eyelids: Yes eyelids normal Conjunctivae: conjunctivae normal Neck Neck: Yes normal visual inspection and Yes supple Resp Effort & Inspection: normal respiratory effort Auscultation: clear to auscultation bilaterally Cardio Jugular venous distension: no JVD Rate: regular rate Rhythm: regular rhythm Heart sounds: S1 normal heart sound present and S2 normal heart sound present GI Inspection: Yes normal to inspection Palpation (GI): Soft to palpation and nontender Auscultation: normal bowel sounds Skin General skin exam: no rashes or lesions noted Neuro General: patient oriented x3, no focal motor deficits and No confusion Extrem General: Yes full ROM Psych Appearance: grossly normal Results AMB Hemoglobin A1c AMB Hemoglobin A1c 7.9 % Last Edit by Ami Perez CMA on 08/11/25 09:19 Results Reviewed Results Reviewed: Laboratory Last Values Hgb A1c (Clinic) 7.9 % (4.0-6.0) H 08/11/25 09:15 Coding Level of Care Code Est Pt Level 3 (50669) Est Pt Prev Care >65y(35533) Diagnoses Physical exam Z00.00 Uncontrolled type 2 diabetes mellitus with hyperglycemia, with long-term current use of insulin E11.65; Z79.4 CKD stage 3 due to type 2 diabetes mellitus E11.22; N18.30 Psoriatic arthritis L40.50 Left hand pain M79.642 COPD (chronic obstructive pulmonary disease) J44.9 Additional Codes PHQ-9 - 07878 - PHQ-9 Billing: Yes ([id number]) HENRIETTA-7 Assessment Billing - HENRIETTA-7 Assessment Tool: HENRIETTA-7 Assessment 11905 ([id number]) Time Spent (min) 33 Assessment & Plan Assessment & Plan (1) Physical exam: Code(s): Z00.00 - Encounter for general adult medical examination without abnormal findings Category: Medical (2) Uncontrolled type 2 diabetes mellitus with hyperglycemia, with long-term current use of insulin: Code(s): E11.65 - Type 2 diabetes mellitus with hyperglycemia; Z79.4 - skilled nursing (current) use of insulin Category: Medical (3) CKD stage 3 due to type 2 diabetes mellitus: Code(s): E11.22 - Type 2 diabetes mellitus with diabetic chronic kidney disease; N18.30 - Chronic kidney disease, stage 3 unspecified Category: Medical (4) Psoriatic arthritis: Code(s): L40.50 - Arthropathic psoriasis, unspecified Category: Medical (5) Left hand pain: Code(s): M79.642 - Pain in left hand Category: Medical (6) COPD (chronic obstructive pulmonary disease): Code(s): J44.9 - Chronic obstructive pulmonary disease, unspecified Category: Medical Plan Plan 1. Encounter for general adult medical examination without abnormal findings Z00.00 Reviewed health maintenance, including vaccination status and cancer screening. The patient is up to date on pneumonia and tetanus vaccines but will be advised to get an influenza vaccine. Discussed colonoscopy findings from 2022 and the plan for repeat screening in 2027. Ordered necessary lab work. 2. Type 2 diabetes mellitus without complications E11.9 HCC 19 The patient's last HbA1c was 7.9%, indicating a need for continued management. He will continue taking Jardiance 25 mg. He will continue to follow up with his plush weaver for management of microalbuminuria. 3. Chronic kidney disease, unspecified N18.9 The patient's kidney function is noted to have a GFR of 58 with elevated microalbumin. He will continue to follow up with his plush weaver. 4. Arthropathic psoriasis, unspecified L40.50 HCC 40 The patient's psoriatic arthritis is reportedly controlled. He will continue taking Otezla for his psoriasis. He will continue to follow up with his beater and pulper feeder. 5. Chronic obstructive pulmonary disease, unspecified J44.9 HCC 111 He will continue using Wixela as prescribed for his COPD. He will continue to follow up with his supervisor matrix for ongoing management and for refills of his medications, including Combivent and albuterol. 6. Pain in left hand M79.642 Start occupational therapy. Orders: Orders Comprehensive Lapel. Panel Fast Today E11.65 - Type 2 diabetes mellitus with hyperglycemia, Z79.4 - termite control representative (current) use of insulin AMB Hemoglobin A1c Today Z13.9 - Encounter for screening, unspecified OT Evaluation and Treatment Today M79.642 - Pain in left hand Lipid Panel Today E78.5 - Hyperlipidemia, unspecified Microalbumin, Random (w Creat) Today R80.9 - Proteinuria, unspecified Medications: Changed From insulin glargine (Lantus Solostar U-100 Insulin) 25 units (0.25 mL) subcut QPM 90 days 30 mL 3RF To insulin glargine (Lantus Solostar U-100 Insulin) 28 units (0.28 mL) subcut QPM 25.2 mL 3RF 90 days Refilled ipratropium-albuterol 20-100 mcg/actuation (Combivent Respimat) 1 puff inhalation Q6H PRN 4 grams 4RF wheezing 30 days gabapentin 600 mg (2 x 300 mg) PO DAILY 180 caps 3RF 90 days fluticasone propion-salmeterol 500-50 mcg/dose (Wixela Inhub) 1 inh PO BID 180 ea 3RF 90 days Discontinued nicotine Discontinued Reason: Patient Refused 1 patch transdermal DAILY 28 days 28 ea 0RF
[2025-08-11 09:23] VITALS: BP 138/70
--- OUTSIDE RECORDS SUMMARY | 2025-08-11 09:45 | XMS_ITS | Clinical Summary ---
Author Organization [facility] Address [address] [place] [address] Phone Care Team Providers Care Hole Filler Name Role Phone Physician, Pcp Unknown Primary [...] - [place] [employer] MEDIC[place] Care Teams Hole Filler Relationship Specialty Start Date End Date Physician, Pcp Unknown PCP - General 12/11/24
--- OUTSIDE RECORDS SUMMARY | 2025-08-11 09:45 | XMS_ITS | Clinical Summary ---
Author Organization [facility] Address [address] [place] [address] Phone Care Team Providers Care Brim Rounder Name Role Phone Sheba Greco MD Primary Care Provider [phone] Allergies Active Allergy Reactions Criticality Noted Date [...] ACOSTARSE CU[facility]O SEA NECESARIO PARA DORMIR Active Active Problems Problem Noted Date Diagnosed [...] % PVNMA 09/07/2020 us [facility] Conversion LAB [id number] LICITED RESULTS Final Result Performing Organization Address City/State/[facility] Co de Phone Number PVNMA from Last 3 Months or Most Recently Relevant to Health Maintenance Insurance [facility] ([id number]) [place] Medicaid [place] [facility] ([id number]) Care Teams Brim Rounder Relationship Specialty Start Date End Date Sheba Greco MD [address] [place], [place] PCP - General 10/12/20
--- OUTSIDE RECORDS SUMMARY | 2025-08-11 09:45 | XMS_ITS | Encounter Summary ---
Author Organization [facility] Address [address] [place] [address] Care Team Providers Care Burr Machine Operator Name Role Phone Physician, Pcp Unknown Primary Care Provider Alicia vailable Encounter Details Date Type Department Care Team (Late st Contact Info) Description 2024 Lab Requisition [facility] Lab [address] [facility] [place] [address] Kurt Velasquez MD [address] [facility] [address] [place] [address] Displacement of implanted penile prosthesis, [...] AM EDT) WBC 9.4 4.8 - 10.8 K/[facility] LAB HEMETOLOGY METHOD 2024 1:55 PM EDT [facility] RBC 4.70 4.50 - 5.50 M/[facility] LAB HEMETOLOGY METHOD 2024 1:55 PM EDT [facility] Hemoglobin 13.9 13.5 - 17.5 g/dL LAB HEMETOLOGY METHOD 2024 1:55 PM EDT [facility] Hematocrit 43.1 42.0 - 54.0 % LAB HEMETOLOGY METHOD 2024 1:55 PM EDT [facility] MCV 92.7 79.0 - 98.0 FL LAB HEMETOLOGY METHOD 2024 1:55 PM EDT [facility] MCH 29.9 27.0 - 32.0 pcg LAB HEMETOLOGY METHOD 2024 1:55 PM EDT [facility] MCHC 32.3 32.0 - 37.0 g/dL LAB HEMETOLOGY METHOD 2024 1:55 PM EDT [facility] RDW 13.7 11.0 - 15.0 % LAB HEMETOLOGY METHOD 2024 1:55 PM EDT [facility] Platelets 246 130 - 400 K/mcL LAB HEMETOLOGY METHOD 2024 1:55 PM EDT [facility] MPV 10.2 7.0 - 11.0 FL LAB HEMETOLOGY METHOD 2024 1:55 PM EDT [facility] NRBC 0.0 <1.0 % LAB HEMETOLOGY METHOD 2024 1:55 PM EDT [facility] NRBC Absolute 0.00 <0.10 K/mcL LAB HEMETOLOGY METHOD 2024 1:55 PM EDT [facility] Blood Venous blood specimen / Unknown 2024 10:05 AM EDT 2024 12:40 PM EDT us Kurt Velasquez MD LAB BLOOD ORDERABLES [place] Result [facility] [address] [place] [address], documented in this encounter Visit Diagnoses Diagnosis Displacement of implanted penile prosthesis, subsequent encounter Urinary tract infection, site not specified documented in this encounter Care Teams Burr Machine Operator Relationship Specialty Start Date End Date Physician, Pcp Unknown PCP - General 12/11/24 documented as of this encounter
--- OUTSIDE RECORDS SUMMARY | 2025-08-11 09:45 | XMS_ITS | Patient Health Record ---
Author Organization [facility] Address [address] [place] [address] Care Team Providers Care Regional Marketing Director Name Role Phone Sheba Greco Primary Care Provider Wil Sebastian Unavailable [phone] Allergies Allergen (clinical drug ingredient) Drug/Non Drug [...] Status Risk Notes Problem Colon cancer screening (994576082) Colon cancer screening (Z12.11) Active confirmed Problem Diverticular disease of colon (907706659) Diverticulosis of large intestine without perforation or abscess without bleeding (K57.30) Active confirmed Problem Gastroesophageal reflux disease without esophagitis (941383627) Gastroesophageal reflux disease without esophagitis (K21.9) Active confirmed Problem History of White's esophagus ([id number]) History of White's esophagus (Z87.19) Active confirmed Plan Of Treatment Future Test Test Name Order Date UPPER GI ENDOSCOPY 03/29/2012 COLONOSCOPY 03/29/2012 COLONOSCOPY 09/21/2022 Insurance Providers Payer Name Payer Address Payer Phone Subscriber Number Group Number Insured Name Patient Relationship to Insured Coverage Start Date Coverage End Date [facility] [address] [address] [place] [phone] [id number] [employer]IGN [employer] Self - patient is the insured Medical (General) History Medical History History ICD Code IDDM HTN White's esophagus(small area) seen on an EGD prior to 2011 GERD--EGD was negative for esophagitis a nd White's in 2011 Denies KS,CVA, and renal disease Cardiac catheterizations-? results Negative screening colonoscopy in 2011 Asthma Surgical History Surgery Date(Month/Year) cholecystectomy penile prosthesis-01/2012
--- OUTSIDE RECORDS SUMMARY | 2025-08-11 09:46 | XMS_ITS | Clinical Summary ---
Author Organization [employer] Address [address] [place] [address] [address] [place] [address] Care Team Providers Care Electromechanical Assembly Technician Name Role Phone Unavailable Primary Care Provider [...] this topic Meningococcal Vaccine Aged Out No hsuam gee eligible based on patient's age to complete this topic RSV under 20 months Aged Out No longe r eligible based on patient's age to complete this topic Rotavirus Vaccines Aged Out No longer eligible based on patient's age to complete this topic
== END 2025-08-11 09:37 | disposition home or self-care (01) ==
LOC: HO.HMCH 09:05
PROVIDERS: PCP Internal Medicine; Visit Provider Internal Medicine
DX: Z00.00 Encounter for general adult medical examination without abnormal findings (principal); M79.642 Pain in left hand; E11.65 Type 2 diabetes mellitus with hyperglycemia; Z79.4 Long term (current) use of insulin; E11.22 Type 2 diabetes mellitus with diabetic chronic kidney disease; N18.30 Chronic kidney disease, stage 3 unspecified; L40.50 Arthropathic psoriasis, unspecified; J44.9 Chronic obstructive pulmonary disease, unspecified; Z13.9 Encounter for screening, unspecified

== ENCOUNTER → 2025-08-11 09:04 | Outpatient (BNVA) | payer OTHER, SELFPAY | PROVIDERS: PCP Internal Medicine; Visit Provider Internal Medicine | DX: Z00.00 Encounter for general adult medical examination without abnormal findings (principal); E11.65 Type 2 diabetes mellitus with hyperglycemia; Z79.4 Long term (current) use of insulin; E11.22 Type 2 diabetes mellitus with diabetic chronic kidney disease; N18.30 Chronic kidney disease, stage 3 unspecified; L40.50 Arthropathic psoriasis, unspecified; M79.642 Pain in left hand; J44.9 Chronic obstructive pulmonary disease, unspecified; Z13.31 Encounter for screening for depression | CPT/HCPCS: 83036; 96127; 99212; 99397 ==

== ENCOUNTER 2025-09-01 10:44 | Outpatient (AMB) | payer OTHER, SELFPAY ==
--- NOTE | 2025-09-01 10:46 | A.OFFVIS_ITS ---
Vital Signs 09/01/25 10:54 Height 5 ft 7 in Weight 162 lb 0.636 oz BMI 25.4 BP 128/60 Blood Pressure Location Lt brachial Position Sitting Pulse 103 H Pulse Source Pulse Oximeter Pulse Oximetry (%) 95 Oxygen Delivery Method Room Air Intake Visit Reasons: COPD Livestock Commission Agent Required: Yes Livestock Commission Agent Language: Casino Cage Supervisor Services: Livestock Commission Agent Present Livestock Commission Agent Name: Cristal Núñez LM Allergies doxycycline Allergy (Intermediate, Verified 09/01/25 10:59) Itching levofloxacin Allergy (Intermediate, Verified 09/01/25 10:59) Itching metformin Allergy (Intermediate, Verified 09/01/25 10:59) diarrhea morphine (MORPHINE) Allergy (Intermediate, Verified 09/01/25 10:59) ITCHING tetracycline Allergy (Intermediate, Verified 09/01/25 10:59) Itching cefazolin Adverse Reaction (Mild, Verified 09/01/25 10:59) Diarrhea, itchy HPI HPI COPD: Details: Jonathon is a pleasant 74 year old male, current 50 pack smoker, with underlying childhood asthma, COPD, DMII, CKDIII, HTN, GERD, Psoriatic arthritis, and Aortic stenosis. He is currently managed on Wixela 500 mcg, using Combivent BID and DuoNeb PRN, with good control of symptoms. He currently denies any dyspnea, coughing, wheezing, or chest tightness. He denies any visits to urgent care or hospitalizations related to respiratory distress since the last visit. He had PFT scheduled last month but no showed. He had chest CT 05/2025 which revealed a 3 mm LLL pulmonary nodule and was referred to the lung screening program for continued surveillance given smoking history, with repeat imaging due 05/2026. Unfortunately patient continues to smoke 1/2 ppd and is considering quitting. [facility] Medical History CKD stage 3 due to type 2 diabetes mellitus Hypertensive retinopathy Nicotine dependence, cigarettes, uncomplicated Tubular adenoma of colon Restless leg syndrome Mild persistent asthma Diabetes mellitus, with long-term current use of insulin Pure hypercholesterolemia GERD (gastroesophageal reflux disease) Precordial chest pain Essential hypertension Non-rheumatic aortic stenosis Loss of hearing Anemia Asthma Surgical History History of esophagogastroduodenoscopy (EGD) History of colonoscopy (~11/09/22) History of cholecystectomy History of implantation of penile prosthesis Family History Father No problems noted. Mother No problems noted. Family/Other FH: mental illness Brother In good health Sister In good health Son In good health Daughter In good health Other Mental health disorder Social History Household Members: None Housing: Apartment Do you presently have visiting nurse or other home services: No Alcohol intake: current Alcohol intake frequency: holidays/special occasions only Alcohol type: hard liquor Patient Tobacco Use Status: Current everyday Tobacco user Tobacco use type: Cigarette Cigarettes Per Day: 10 e-Cigarette/Vaping Use: Never Used Second Hand Smoke Exposure: No service: No Current occupational status: disabled Cognitive needs: No Hearing needs: No Vision needs: Yes Review of Systems Const Denies chills, Denies excessive sweating, Denies fever(s), Denies headache(s) and Denies night sweats Eyes Denies dry eyes, Denies irritation and Denies itchy eyes ENT Reports Normal hearing present, Denies headache(s), Denies nasal congestion, Denies nasal discharge, Denies post nasal drip and Denies sore throat Card Denies chest pain, Denies chest pain at rest, Denies chest pain with activity, Denies claudication, Denies leg edema, Denies dyspnea, Denies dyspnea on exertion, Denies orthopnea and Denies paroxysmal nocturnal dyspnea Resp Denies chest congestion, Denies cough, Denies excessive phlegm production, Denies pain on inspiration, Denies pain with cough, Denies dyspnea, Denies dyspnea on exertion, Denies stridor and Denies wheezing Musc Denies myalgias Neuro Reports Normal hearing present and Denies headache(s) Endo Denies excessive sweating Greg/Lymph Denies lymphadenopathy Aller/Immun Denies itchy eyes, Denies seasonal rhinorrhea and Denies wheezing Physical Exam Vital Signs: Last Vital Signs Pulse 103 H 09/01/25 10:54 BP 128/60 09/01/25 10:54 Pulse Ox 95 09/01/25 10:54 Oxygen Delivery Method Room Air 09/01/25 10:54 BMI result Body Mass Index 25.4 Const General: cooperative, healthy appearing, comfortable, no acute distress, well developed and alert Orientation/consciousness: patient oriented x3 Limitations: no limitations HEENT Head: Yes normal to inspection, Yes normocephalic and Yes atraumatic Ears: hearing grossly normal bilaterally and external ears normal Eyes General: appearance normal, both eyes and all related structures Eyelids: Yes eyelids normal Sclerae: sclerae normal EOM: EOMs intact bilaterally Neck Neck: Yes normal visual inspection and Yes no lymphadenopathy Lymphatic: no lymphadenopathy noted Chest Chest palpation & inspection: normal inspection of the chest Resp Effort & Inspection: normal respiratory effort, able to speak in complete sentences, no audible wheezes, no cough, no stridor, not tachypneic, no tripod positioning and no use of accessory muscles Auscultation: diminished lung sounds Cardio Jugular venous distension: no JVD Rate: regular rate Rhythm: regular rhythm Skin Other: warm, dry General skin exam: no rashes or lesions noted Neuro General: patient oriented x3 Cranial nerves: Yes Normal hearing present Cognition (Neuro): normal cognition Gait exam (Neuro): Normal gait present Extrem General: Yes normal to inspection, Yes capillary refill normal, Yes no clubbing, cyanosis or edema and Yes no pedal edema Psych Appearance: grossly normal and well kempt Speech and movement: Normal speech and movement present and Clear speech present Affect: normal affect Attitude: cooperative Thought process: Normal thought process present Thought content: Normal thought content present Insight: Good insight present (Psych) Judgement: Good judgement present (Psych) Assessment & Plan Assessment & Plan (1) COPD (chronic obstructive pulmonary disease): Code(s): J44.9 - Chronic obstructive pulmonary disease, unspecified Category: Medical (2) Nicotine dependence, cigarettes, uncomplicated: Comment: (Current smoker, 1/2pd, 30+PYH) Code(s): F17.210 - Nicotine dependence, cigarettes, uncomplicated Category: Medical (3) Pulmonary nodule: Code(s): R91.1 - Solitary pulmonary nodule Category: Medical Plan Jonathon reports good control of respiratory on current regimen of Wixela, Combivent and DuoNeb p.r.n., advised to continue. We did discuss switching to alternative medications including Trelegy but he would like to hold off at this time. He is aware to call if symptoms change. Upon leaving office today patient will reschedule PFT, as he previously no showed. Smoking cessation reviewed. The patient has a significant smoking history and is motivated to completely quit after this current pack. Chest CT 05/2025 demonstrated a 3 mm LLL pulmonary nodule and was referred to the lung screening program for continued surveillance. To be scheduled 05/2026. All questions were answered and patient is in agreement of plan. Will follow up in 3 months or sooner if needed. Coding Level of Care Code Est Pt Level 4 (64036) Diagnoses COPD (chronic obstructive pulmonary disease) J44.9 Nicotine dependence, cigarettes, uncomplicated F17.210 Pulmonary nodule R91.1
[2025-09-01 10:54] VITALS: BP 128/60; PULSE 103; O2SAT 95; BMI 25.4
--- OUTSIDE RECORDS SUMMARY | 2025-09-01 13:44 | XMS_ITS | Clinical Summary ---
Author Organization [employer] Address [address] [place] [address] 7t [place] [address] Care Team Providers Care Telephone Operator Chief Name Role Phone Unavailable Primary Care Provider [...]
--- OUTSIDE RECORDS SUMMARY | 2025-09-01 13:44 | XMS_ITS | Clinical Summary ---
Author Organization [facility] Address [address] [place] [address] Phone Care Team Providers Care Day Spa Manager Name Role Phone Sheba Greco MD Primary Care Provider [phone] Allergies Active Allergy Reactions Criticality Noted Date [...] Date Smoking Tobacco: Every Day Cigarettes 0.5 7.5 Started: 03/16/2018 Smokeless Tobacco: Never Tobacco Cessation:Ready [...] % PVNMA 09/07/2020 us Rt[facility] Conversion LAB [id number] LICITED RESULTS Final Result Performing Organization Address City/State/[facility] Co de Phone Number PVNMA from Last 3 Months or Most Recently Relevant to Health Maintenance Insurance [facility] ([id number]) Medicaid [place] [facility] ([id number]) Care Teams Day Spa Manager Relationship Specialty Start Date End Date Sheba Greco MD [address] [place], [place] PCP - General 10/12/20
== END 2025-09-01 11:18 | disposition home or self-care (01) ==
LOC: HO.HPS 10:45
PROVIDERS: PCP Internal Medicine; Visit Provider Nurse Practitioner Family
DX: J44.9 Chronic obstructive pulmonary disease, unspecified (principal); F17.210 Nicotine dependence, cigarettes, uncomplicated; R91.1 Solitary pulmonary nodule
CPT/HCPCS: 99214

== ENCOUNTER → 2025-09-01 10:44 | Outpatient (BNVA) | payer OTHER, SELFPAY | PROVIDERS: PCP Internal Medicine; Visit Provider Nurse Practitioner Family | DX: J44.9 Chronic obstructive pulmonary disease, unspecified (principal); F17.210 Nicotine dependence, cigarettes, uncomplicated; R91.1 Solitary pulmonary nodule | CPT/HCPCS: 99212 ==

== ENCOUNTER 2025-09-03 08:37 | Outpatient (AMB) | payer OTHER, SELFPAY ==
--- NOTE | 2025-09-03 08:45 | MHC.OFFVIS ---
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 Patient reports that he was given an injection on 03/13/25 by Rheumatology that had provided him with relief for about for a few months. He complains of pain in his shoulder that radiates up towards his neck. His discomfort is worse at night making it difficult to sleep. Complaints of numbness and tingling in his arm. Allergies doxycycline Allergy (Intermediate, Verified 09/03/25 08:59) Itching levofloxacin Allergy (Intermediate, Verified 09/03/25 08:59) Itching metformin Allergy (Intermediate, Verified 09/03/25 08:59) diarrhea morphine (MORPHINE) Allergy (Intermediate, Verified 09/03/25 08:59) ITCHING tetracycline Allergy (Intermediate, Verified 09/03/25 08:59) Itching cefazolin Adverse Reaction (Mild, Verified 09/03/25 08:59) Diarrhea, itchy Medication List - Last Reconciled 09/03/25 by Yanelis Eugene PA-C acetaminophen (Tylenol) 650 mg (2 x 325 mg) PO Q4H PRN albuterol sulfate 2.5 mg (3 mL) inhalation Q6H PRN 30 days amlodipine 5 mg PO DAILY 90 days apremilast (Otezla) 30 mg PO BID aspirin 81 mg PO DAILY atorvastatin 40 mg PO BEDTIME 90 days blood sugar diagnostic (OneTouch Verio test strips) Use 3 times a day to test BG daily for 30 days blood-glucose sensor ([place] G7 Sensor device) Use daily As directed to monitor glucose. change q 10 days cholecalciferol (vitamin D3) 25 mcg PO DAILY 90 days cholestyramine (with sugar) 4 gram 4 grams PO BID 30 days clotrimazole-betamethasone 1-0.05 % 1 appl topical BID [diabetic shoes and inserts As directed] empagliflozin (Jardiance) 25 mg PO QAM fluticasone propion-salmeterol 500-50 mcg/dose (Wixela Inhub) 1 inh PO BID 90 days gabapentin 600 mg (2 x 300 mg) PO DAILY 90 days glucose (Dex4 Glucose) 16 grams (4 x 4 gram) PO Q15M PRN insulin glargine (Lantus Solostar U-100 Insulin) 28 units (0.28 mL) subcut QPM 90 days ipratropium-albuterol 0.5 mg-3 mg(2.5 mg base)/3 mL 3 mL inhalation Q6H PRN 30 days ipratropium-albuterol 20-100 mcg/actuation (Combivent Respimat) 1 puff inhalation Q6H PRN 30 days lancets (Implisit Delica Plus Lancet) CHECK BY FINGER STICK ROUTE 4 TIMES EVERY DAY lancets (GeneNews Safety Lancets) As directed TID nebulizers (AeroEclipse II Nebulizer) As directed omeprazole 20 mg PO BID [oneGrapheneauch glucometer As directed] pen needle, diabetic As directed daily with Lantus pramipexole 0.125 mg PO BEDTIME 90 days sodium polystyrene sulfonate 15 grams PO BID 30 days tamsulosin 0.4 mg PO DAILY triamcinolone acetonide 0.1% 1 appl topical BID 1 week Ventolin HFA 90 mcg/actuation (albuterol sulfate) 2 puffs inhalation Q6H PRN 30 days NS zolpidem 10 mg PO BEDTIME 30 days HPI 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 He was seen by Rheumatology this summer where he had an injection which she states was not helpful. I saw him approximately 3 years ago and gave him an injection which she states was helpful for about 3 years. He has pain with overhead reaching pushing pulling and carrying. He had an MRI back in 2018 which did show some degenerative changes of the shoulder and rotator cuff. He is a diabetic and an active smoker. [facility] Medical History CKD stage 3 due to type 2 diabetes mellitus Hypertensive retinopathy Nicotine dependence, cigarettes, uncomplicated Tubular adenoma of colon Restless leg syndrome Mild persistent asthma Diabetes mellitus, with long-term current use of insulin Pure hypercholesterolemia GERD (gastroesophageal reflux disease) Precordial chest pain Essential hypertension Non-rheumatic aortic stenosis Loss of hearing Anemia Asthma Surgical History History of esophagogastroduodenoscopy (EGD) History of colonoscopy (~11/09/22) History of cholecystectomy History of implantation of penile prosthesis Family History Father No problems noted. Mother No problems noted. Family/Other FH: mental illness Brother In good health Sister In good health Son In good health Daughter In good health Other Mental health disorder Social History Household Members: None Housing: Apartment Do you presently have visiting nurse or other home services: No Alcohol intake: current Alcohol intake frequency: holidays/special occasions only Alcohol type: hard liquor Patient Tobacco Use Status: Current everyday Tobacco user Tobacco use type: Cigarette Cigarettes Per Day: 10 e-Cigarette/Vaping Use: Never Used Second Hand Smoke Exposure: No service: No Current occupational status: disabled Cognitive needs: No Hearing needs: No Vision needs: Yes Review of Systems Const All systems reviewed & are unremarkable except as noted in HPI and below Physical Exam Vital Signs: BMI result Body Mass Index 25.4 Const General: cooperative and no acute distress Orientation/consciousness: patient oriented x3 Resp Effort & Inspection: normal respiratory effort and able to speak in complete sentences Cardio Peripheral pulses: Peripheral pulses 2+ throughout Neuro General: patient oriented x3 Extrem Other: Right shoulder full range of motion in all planes. He has pain with empty can and external rotation against resistance with some associated weakness. Office Procedures AMB Joint Injection/Aspiration Joint Injection/Aspiration Primary Site: Right Shoulder Prep: site was prepped using aseptic technique, ethochloride spray was applied and injection warnings given Injected: 40 mg of, Decadron, with 3 mL of, 1% plain Lidocaine, 0.25% Bupivacaine and in the subcromial space Approach Used: posterolateral Procedure: The patient tolerated the procedure well and there was some relief with the local anesthesia Coding 71313 - Glenohumeral/Tronchanteric Bursa/Intraarticular Procedure code (CPT) selection complete Results Reviewed Results Reviewed: X-rays of the right shoulder obtained on 07/29/2025 significant for mild arthritis Assessment & Plan Assessment & Plan (1) Rotator cuff arthropathy of right shoulder: Code(s): M12.811 - Other specific arthropathies, not elsewhere classified, right shoulder Category: Medical Plan: We discussed options today which includes a repeat steroid injection which she would like to proceed with. I also discussed with the patient the effect steroid injections may have on their blood-glucose levels. The steroid may elevate their blood-glucose levels over the next 12-36 hours, or even several days. Due to this response, I strongly encourage the patient to monitor their BG levels and if they are feeling unwell, or their levels are difficult to manage, they should present tot he closet emergency department. The patient did express understanding. Right shoulder injection was performed today which the patient tolerated well. He will rest ice and elevate the shoulder and limit activity over the next 24 hours. If symptoms persist or worsen can contact our office to discuss other options otherwise he will follow up as needed. Coding Level of Care Code Complex visit Add On G2211 Diagnoses Rotator cuff arthropathy of right shoulder M12.811 CPT Codes Coding - Joint 7: 57330 - Glenohumeral/Tronchanteric Bursa/Intraarticular ([id number])
--- OUTSIDE RECORDS SUMMARY | 2025-09-03 08:53 | XMS_ITS | Encounter Summary ---
Author Organization [employer] Address [address] [place] [address] Care Team Providers Care Radiology Equipment Servicer Name Role Phone Physician, Pcp Unknown Primary Care Provider Alicia vailable Encounter Details Date Type Department Care Team (Late st Contact Info) Description 2024 Lab Requisition [facility] Main Lab [address] [facility] [place] [address] Kurt Velasquez MD [address] [facility] [address] [place] [address] Displacement of implanted penile prosthesis, [...] AM EDT) WBC 9.4 4.8 - 10.8 K/[facility] LAB HEMETOLOGY METHOD 2024 1:55 PM EDT [facility] RBC 4.70 4.50 - 5.50 M/[facility] LAB HEMETOLOGY METHOD 2024 1:55 PM [...] Result [facility] [address] [place] [address], documented in this encounter Visit Diagnoses Diagnosis Displacement of implanted penile prosthesis, subsequent encounter Urinary tract infection, site not specified documented in this encounter Care Teams Radiology Equipment Servicer Relationship Specialty Start Date End Date Physician, Pcp Unknown PCP - General 12/11/24 documented as of this encounter
--- OUTSIDE RECORDS SUMMARY | 2025-09-03 08:53 | XMS_ITS | Clinical Summary ---
Author Organization [employer] Address [address] [place] [address] 7t [place] [address] Care Team Providers Care Clearing Distribution Clerk Name Role Phone Unavailable Primary Care Provider [...]
--- OUTSIDE RECORDS SUMMARY | 2025-09-03 08:53 | XMS_ITS | Clinical Summary ---
Author Organization [facility] Address [address] [place] [address] Phone Care Team Providers Care Rehab Spec Name Role Phone Sheba Greco MD Primary Care Provider [phone] Allergies Active Allergy Reactions Criticality Noted Date [...] % PVNMA 09/07/2020 us Rtama Conversion LAB [id number] LICITED RESULTS Final Result Performing Organization Address City/State/[facility] Co de Phone Number PVNMA from Last 3 Months or Most Recently Relevant to Health Maintenance Insurance [facility] ([id number]) [place] [address] Medicaid [place] [facility] ([id number]) [place] [address] Care Teams Rehab Spec Relationship Specialty Start Date End Date Sheba Greco MD [address] [place], [place] PCP - General 10/12/20
--- OUTSIDE RECORDS SUMMARY | 2025-09-03 08:53 | XMS_ITS | Clinical Summary ---
Author Organization [address] [facility] Address [address] [place] [address] Phone Care Team Providers Care Sleep Tech Name Role Phone Physician, Pcp Unknown Primary [...] Health Screening 2024 COVID-19 Vaccine (1 - 2024-2 6 season) 2025 Influenza Vaccine (#1) 2025 RSV [...] - [place] [employer] MEDICARE Care Teams Sleep Tech Relationship Specialty Start Date End Date Physician, Pcp Unknown PCP - General 12/11/24
[2025-09-03 09:00] VITALS: BMI 25.4
== END 2025-09-03 09:42 | disposition home or self-care (01) ==
LOC: HO.HOS 08:38
PROVIDERS: PCP Internal Medicine; Visit Provider Physician Assistant
DX: M12.811 Other specific arthropathies, not elsewhere classified, right shoulder (principal)
CPT/HCPCS: 20610

== ENCOUNTER → 2025-09-03 08:37 | Outpatient (BNVA) | payer OTHER, SELFPAY | PROVIDERS: PCP Internal Medicine; Visit Provider Physician Assistant | DX: M12.811 Other specific arthropathies, not elsewhere classified, right shoulder (principal) | CPT/HCPCS: 20610; J0665; J1100; J2003 ==

== ENCOUNTER → 2025-09-09 12:23 | Outpatient (REF) | payer OTHER, SELFPAY ==
--- NOTE | 2025-09-09 12:26 | CA_ITS ---
Transthoracic Echocardiogram Patient (Last, First, Middle): Jonathon Harper E Gender: M Date of : 1950 Age: 74 Procedure Date: 09/09/2025 Procedure Type: Transthoracic Echocardiogram Location: OP Height: 170.18 cm Weight: 72.58 kg BSA: 1.84 m2 Heart Rate: 83 bpm BP: 120 / 70 mmHg Electric Cutter Operator: SB Referring MD: Shonda Youngblood LITHOGRAPHIC CAMERA OPERATOR-C Smash Fixer: Maxx Gaines MD Symptoms: I35.0 - Nonrheumatic aortic (valve) stenosis Study Quality: Adequate ECG Rhythm: Sinus Conclusions: - 1. Normal LV ejection fraction 55-60% with impaired relaxation filling pattern 2. [id number] aortic stenosis 3. Normal RV systolic pressure 4. No gross pericardial effusion Findings Left Ventricle Normal left ventricular size, thickness, and systolic function. The visually estimated ejection fraction is between 55-60%. Spectral Doppler is indicative of an impaired relaxation filling pattern. E/E prime ratio is between 8 and 15 consistent with indeterminate filling pressures. Right Ventricle Normal right ventricular cavity size and systolic function. Atria Both atria are normal in size. Interatrial shunt cannot be excluded. Aortic Valve There is moderate calcification of the aortic valve. There is mild to moderate aortic valve stenosis. The peak aortic gradient is 23 mmHg.The mean gradient is 13 mmHg. The aortic valve area is 1.31 cm2. There is no aortic valve regurgitation. Mitral Valve There is mild anterior mitral leaflet thickening. There is mild mitral annular calcification. There is trace mitral valve regurgitation. There is no mitral valve stenosis. Pulmonic Valve The pulmonic valve is likely normal. Tricuspid Valve Normal tricuspid valve structure. There is trace tricuspid valve regurgitation. The right ventricular systolic pressure is normal. The right ventricular systolic pressure is 25 mmHg. Normal right atrial pressure. There is no evidence of pulmonary hypertension. Great Vessels All visible segments of the aorta are normal in size. The pulmonary artery was not well visualized. There is no dilatation of the ascending aorta measuring 3.30 cm. Venous The inferior vena cava is normal in size and collapses greater than 50% with inspiration. Pericardium/Pleural There is no evidence of pericardial effusion. Prior Study Comparison No significant change compared to prior study dated: 09/17/2024. Measurements 2D Linear Measurements IVSd: 1.07 0.6-0.9/0.6-1.0 cm LVIDd: 3.85 3.9-5.3/4.2-5.9 cm LVIDd Index: 2.09 2.4-3.2/2.2-3.1 cm/m2 LVIDs: 2.97 2.0-3.6 cm LVPWd: 0.67 0.7-1.1 cm LA Diam: 3.50 2.7-3.8/3.0-4.0 cm LAIDs Index: 1.90 1.5-2.3 cm/m2 LV Mass: 121.92 67-162/88-224 g LV Mass Index: 66.26 43-95/49-115 g/m2 LVOT Diam: 2.10 3.0+(-)1.3 cm 2D Systolic Function EF 4C: 61.10 >55% EF 2C: 58.80 >55% EF BiP: 58.80 >55% Mitral Valve MV Pk E: 0.82 MV PK A: 0.95 MV Decel Time: 253.00 E/A: 0.90 E'Lateral: 7.62 E'Medial: 5.33 E/E' Med: 15.40 E/E' Lat: 10.80 PHT: 74.00 MVA PHT: 2.97 Decel Divide: 3.26 Aortic Valve AoV Pk Erasto: 2.41 AoV Mn Erasto: 1.67 AoV VTI: 0.50 AoV Pk Grad: 23.00 Aov Mn Grad: 13.00 TUNDE Cont.VTI: 1.31 LVOT LVOT Pk Erasto: 0.90 LVOT Mn Erasto: 0.59 LVOT VTI: 0.19 LVOT Pk Grad: 3.00 LVOT Mn Grad: 2.00 LVOT Diam: 2.10 LVOT Area: 3.46 Diastolic Function MV Pk E: 0.82 MV Pk A: 0.95 E/A: 0.90 E'Medial: 5.33 E/E' Med: 15.40 E' Laterial: 7.62 E/E' Lat: 10.80 Right Ventricle TAPSE (mm): 17.80 TVS' Erasto: 9.68 Tricuspid Valve TR Pk Erasto: 2.33 TR Pk Grad: 22.00 RA Press: 3.00 RVSP: 25.00 Great Vessels Aorta Sinus of Valsalva: 3.10 2.0-3.5 cm Ao Asc: 3.30 2.1-3.4 cm Pulmonary Veins Pulm Vein S/D 2.00 Pulmonary Valve PV Pk Erasto: 0.91 Peak PV Grad: 3.00 Updated in Other Vendor System with Status of Final Maxx Gaines MD electronically signed on 09/10/2025 4:00:43 PM with status of Final
== END ==
LOC: HO.CARD 12:23
PROVIDERS: PCP Internal Medicine; Visit Provider Nurse Practitioner Family
DX: I35.0 Nonrheumatic aortic (valve) stenosis (principal); I10 Essential (primary) hypertension
CPT/HCPCS: 93306

== ENCOUNTER → 2025-09-09 12:26 | Outpatient (BNV) | payer OTHER, SELFPAY | PROVIDERS: PCP Internal Medicine; Visit Provider Internal Medicine Cardiovascular Disease | DX: I35.0 Nonrheumatic aortic (valve) stenosis (principal) | CPT/HCPCS: 93306 ==